=== PATIENT | female | born 1930 | race Caucasian/White ===

== ENCOUNTER 2016-12-16 12:41 | Inpatient (IN) | payer OTHER, MEDICARE ==
[~2016-12-16] VITALS: Ht 157.5 cm; Wt 62.1 kg
[~2016-12-16 12:41] MED LIST: AZITHROMYCIN500 MG PO; BENADRYL 50 MG50 MG PO; BENTYL 10 MG CA10 MG PO; BIOTIN5 M1 PO; CALCIUM 600 +1 EA12 PO; CHEMO IV; CYANOCOBAL1000 MCG/2 IM; DILAUDID2 M1 PO; ENABLEX PO; ENSURE LIQUID237 ML PO; FLAXSEED OIL1000 MG PO; FOLIC ACID0.8 M2 PO; GLUCOSAMINE & C1 CAP PO; GLUCOSAMINE1000 MG PO; K-DUR 20MEQ TA20 MEQ PO; KLOR-CON20 MEQ PO; LASIX40 MG PO; LASIX80 M1 PO; LASIX80 MG PO; LIDODERM1 EACH TOP; LOPRESSOR50 M1 PO; MAGNESIUM OXID400 M1 PO; MULTIPLE VITAM1 EAC2 PO; MYRBETRIQ25 M1 PO; NIACIN500 MG PO; PLAVIX 75MG TAB75 MG PO; POTASSIUM CHLO20 ME4 PO; PREDNISONE 20MG20 MG PO; PREDNISONE10 MG PO; PREDNISONE50 M1 PO; PRIMROSE OILE500 MG PO; SPIRIVA 18 MCG18 MCG INH; SYNTHROID0.125 MG PO; TRAMADOL HCL50 M1 PO; VITAMIN C500 M3 PO; VITAMIN C500 M8 PO; VITAMIN D35000 IU PO; VITAMIN E1000 IU PO; XARELTO15 MG PO; ZOFRAN ODT4 M1 SL
--- NOTE | 2016-12-16 12:46 | ED DYSPNEA/ASTHMA COMPLAINT ---
History of Present Illness General Chief Complaint: Dyspnea (COPD, CHF, Other) Stated Complaint: BIBA SOB Source: patient, old records, EMS Exam Limitations: no limitations Vital Signs & Intake/Output Vital Signs & Intake/Output Vital Signs Date Time Temp Pulse Resp B/P Pulse O2 O2 Flow FiO2 Ox Delivery Rate 12/16 1347 133 16 111/73 12/16 1346 133 111/73 12/16 1307 100 Nasal 2.0L Cannula 12/16 1246 98.3 144 16 101/69 98 Room Air Allergies Coded Allergies: Penicillins (RASH 12/16/16) acetaminophen (BURNING FEELING IN STOMACH 12/16/16) garlic (NAUSEA 12/16/16) latex (SORES 12/16/16) mold (UNKNOWN 12/16/16) onion (NAUSEA 12/16/16) Sulfa (Sulfonamide Antibiotics) (GI 12/16/16) aspirin (MILD GI 12/16/16) diazepam (GI 12/16/16) oxycodone (GI, MIGRAINE 12/16/16) propoxyphene (GI 12/16/16) Uncoded Allergies: COLOGNE (PER PT UPSETS HER WITH THE SMELL 10/17/16) HAIR SPRAY (PER PT UPSETS HER WITH THE SMELL 10/17/16) SMOKE (PER PT CANT STAND SMELLS IT UPSETS HER 10/17/16) Reconcile Medications Ascorbic Acid (Vitamin C) 500 MG TABLET 1 TAB PO TID SUPPLEMENT (Reported) Biotin 5 MG CAPSULE 1 TAB PO DAILY SUPPLEMENT (Reported) Calcium Carbonate/Vitamin D3 (Calcium 600 + Vit D Tablet) 1 EACH TABLET 1 TAB PO DAILY SUPPLEMENT (Reported) Calcium Citrate/Vitamin D3 (Citracal + D Maximum Caplet) 315 MG-250 UNIT TABLET 1 TAB PO BID SUPPLEMENT (Reported) NOT GIVEN AT HOSPITAL Cholecalciferol (Vitamin D3) (Vitamin D3) 5,000 UNIT TABLET 1 TAB PO DAILY SUPPLEMENT (Reported) Cyanocobalamin (Vitamin B-12) (Cyanocobalamin Injection) 1,000 MCG/1 ML VIAL 1 ML IM Q30D SUPPLEMENT (Reported) Estradiol (Climara) 0.0375 MG/24 HOUR PATCH.TDWK 1 PATCH TOP ESTROGEN ( Reported) Flaxseed Oil (Flax Oil) 1,000 MG CAPSULE 1 CAP PO DAILY SUPPLEMENT (Reported) Folic Acid 0.8 MG TABLET 1 TAB PO BID SUPPLEMENT (Reported) Furosemide (Lasix) 80 MG TABLET 1 TAB PO DAILY WATER PILL (Reported) Glucosam Sul Na/Chondr Shepard A Na (Glucosamine-Chondroitin Tablet) 750 MG-600 MG TABLET 1 TAB PO BID SUPPLEMENT (Reported) Lactose-Reduced Food (Ensure Liquid) 237 ML LIQUID 237 ML PO TID PRN NUTRITIONAL SUPPLEMENT (Reported) Levothyroxine Sodium (Synthroid) 0.125 MG TAB 1 TAB PO DAILY AC THYROID ( Reported) Lidocaine 5 % ADH..PATCH 1 PAT TOP DAILY PRN PAIN (Reported) Magnesium Oxide 400 MG TABLET 1 TAB PO DAILY SUPPLEMENT (Reported) Metoprolol Tartrate (Lopressor) 25 MG TABLET 2 TAB PO BID BLOOD PRESSURE ( Reported) Reason to Stop at ADM: gi bleed and possibility of hypotension Mirabegron (Myrbetriq) 25 MG TAB.ER.24H 1 TAB PO DAILY BLADDER (Reported) Multivitamin (Multiple Vitamins) 1 EACH TABLET 1 TAB PO DAILY SUPPLEMENT ( Reported) Niacinamide (Niacin) 500 MG TABLET 1 TAB PO DAILY SUPPLEMENT (Reported) Pantoprazole Sodium 40 MG TABLET.DR 1 TAB PO DAILY GI (Reported) Pantoprazole Sodium (Protonix) 40 MG TABLET.DR 1 TAB PO BID GI (Reported) Potassium Chloride 20 MEQ TABLET.ER 1 TAB PO QAM SUPPLEMENT (Reported) [PRIMROSE OIL] 1,000 MG PO DAILY SUPPLEMENT (Reported) Rivaroxaban (Xarelto) 15 MG TABLET 1 TAB PO 1700 BLOOD THINNER (Reported) Tiotropium [place] (Spiriva) 18 MCG CAP.W.DEV 1 CAP INH DAILY BREATHING PROBLEMS (Reported) Tramadol HCl 50 MG TABLET 1 TAB PO BIDP PRN PAIN (Reported) Vitamin E Mixed (Vitamin E) 1,000 UNIT CAPSULE 1 CAP PO DAILY SUPPLEMENT ( Reported) Triage Nurses Notes Reviewed? yes Onset: Morning Duration: hour(s): (several) Timing: single episode today Severity: mild Activities at Onset: TRYING TO GET UP HPI: 86 year old female BIBA from assisted living for complaint of fall this am at 7 am. She hit a glass table with her cheek as she was trying to put pressure against it to stand up. No head trauma or head injury. [place] lightheaded prior to the fall. No chest pain or palpitations prior to the fall. Now complains of chest pain and thinks she might have hit her chest on the table. Past History Medical History Any Pertinent Medical History? 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 History of MRSA: No History of VRE: No History of CDIFF: No Pneumonia Vaccine: 11/02/08 Influenza Vaccine: 08/18/16 Surgical History Surgical History: cholecystectomy, hysterectomy (benign), bladder surgery Psychosocial History Who do you live with Patient/Self Services at Home Home Health Aide, Nursing What is your primary language Moldovan Family History Family History, If Any: MOTHER (hypertension, coronary artery disease and stroke). Relation not specified for: FH: coronary artery disease FH: hypertension FH: stroke Hx Contributory? No Review of Systems Review of Systems Constitutional: Denies: chills, fever. EENTM: Reports: no symptoms. Respiratory: Reports: short of breath. Denies: cough, sputum production. Cardiovascular: Denies: chest pain, palpitations. GI: Reports: nausea. Genitourinary: Denies: discharge, dysuria. Musculoskeletal: Reports: no symptoms. Skin: Reports: no symptoms. Neurological/Psychological: Reports: no symptoms. Hematologic/Endocrine: Denies: bruising, bleeding, polyuria, polydipsia. Immunologic/Allergic: Reports: no symptoms. All Other Systems: Reviewed and Negative Physical Exam Physical Exam General Appearance: alert, awake, mild distress, thin Head: atraumatic, normal appearance Eyes: Bilateral: normal appearance, PERRL, pale conjunctivae. Ears, Nose, Throat: normal pharynx, normal ENT inspection, hearing grossly normal Neck: normal inspection, supple, full range of motion Respiratory: normal breath sounds, chest non-tender, no respiratory distress Cardiovascular: tachycardia, irregularly irregular Peripheral Pulses: 2+ radial (R), 2+ radial (L) Gastrointestinal: soft, non-tender Neurologic/Psych: no motor/sensory deficits, awake, alert, oriented x 3 Skin: intact, normal color, warm/dry Core Measures ACS in differential dx? No Severe Sepsis Present: No Septic Shock Present: No Progress Differential Diagnosis: RAPID AFIB, FACIAL CONTUSION, Plan of Care: Orders Procedure Date/time Status Heart Healthy Diet 12/16 D Active LACTIC ACID 12/16 1652 Active LOWER RESPIRATORY CULTURE 12/16 1449 Active Code Status 12/16 1447 Active Patient Data 12/16 1423 Active Admit to inpatient 12/16 1414 Active Vital Signs 12/16 1414 Active LACTIC ACID 12/16 1352 Active MISTAKE 12/16 1327 Active Telemetry/Cancellation Clerk 12/16 1255 Active TROPONIN LEVEL 12/16 1249 Complete PARTIAL THROMBOPLASTIN TIME 12/16 1249 Active PROTHROMBIN TIME 12/16 1249 Active D-DIMER 12/16 1249 Active COMPREHENSIVE METABOLIC PANEL 12/16 1249 Complete CBC WITHOUT DIFFERENTIAL 12/16 1249 Complete B-TYPE NATRIURETIC PEP (BNP) 12/16 1249 Complete EKG 12/16 1242 Active Current Medications Sig/Timi Start time Last Medication Dose Stop Time Status Admin Azithromycin 500 MG ONCE ONE 12/16 1415 AC (Zithromax) 12/16 1514 Dextrose/Water 250 ML (D5W) Vancomycin HCl 1,000 MG ONCE ONE 12/16 1400 AC Dextrose/Water 250 ML 12/16 1459 (D5W) Laboratory Tests 12/16/16 1435: Lactic Acid Pending, PT Pending, INR Pending, APTT Pending, D-Dimer Pending 12/16/16 1300: Anion Gap 6, Estimated GFR 59 L, BUN/Creatinine Ratio 16.7, Glucose 125 H, Calcium 8.7, Total Bilirubin 1.3, AST 28, ALT 36, Alkaline Phosphatase 71, Troponin I 0.02, Bdv-P-Olfvmjcjyjr Pept 61548 H, Total Protein 6.1 L, Albumin 3.2 L, Globulin 2.9, Albumin/Globulin Ratio 1.1, CBC w Diff MAN DIFF ORDERED, RBC 3.47 L, MCV 87.0, MCH 29.4, RDW 14.3, MPV 9.4, Gran % 8.1 L, Lymphocytes % 32.4, Monocytes % 35.6 H, Eosinophils % 22.9 H, Basophils % 1.0, Absolute Granulocytes 0.1 L, Absolute Lymphocytes 0.2 L, Absolute Monocytes 0.2, Absolute Eosinophils 0.2, Absolute Basophils 0, Platelet Estimate VERIFIED BY SMEAR, Polychromasia 1+, PUBS [facility] 33.8 Microbiology 12/16 1449 LOWER RESP: Respiratory Culture - ORD 12/16 144 LOWER RESP: Gram Stain - ORD 12/16/2016 2:49:03 PM Patient admitted to the medical service on telemetry for neutropenia, pneumonia and rapid A. fib. Oncology paged. 2:57 PM D/W doctor bone worker for [facility]. Will have [facility] consult in house. (SINGH MAYBERRY,[place]) Diagnostic Imaging: Viewed by Me: Radiology Read. Discussed w/RAD: Radiology Read. Initial ED EKG: AFIB (RAPID) Rhythm Strip: RAPID AFIB Comments: PATIENT: ESME CARIAS PRESENT AGE: 86 PATIENT ACCOUNT NO: [id number] : [birth year] LOCATION: [facility] [place] ORDERING PHYSICIAN: LORE WINTERS MD SERVICE DATE: 12/16/16-125 EXAM TYPE: RAD - XRY-PORTABLE CHEST XRAY EXAMINATION: XR PORTABLE CHEST CLINICAL INFORMATION: 86-year-old woman with dyspnea. COMPARISON: 10/17/2016 chest radiograph TECHNIQUE: Portable AP view of the chest was obtained. FINDINGS: There is new patchy opacity at the left lung base that could reflect atelectasis or consolidation. Moderate cardiomegaly is approximately stable. There are no large pleural effusions. A right-sided chest port is seen in stable position. IMPRESSION: New patchy airspace opacity at the left lung base is nonspecific and could reflect atelectasis or consolidation. DICTATED BY: HOLLEY CALIXTO MD DATE/TIME DICTATED:12/16/161342 FINE PATCHER:BALDEMAR DATE/TIME TRANSCRIBED:12/16/161342 CONFIDENTIAL, DO NOT COPY WITHOUT APPROPRIATE AUTHORIZATION. <Electronically signed in Other Vendor System> SIGNED BY: HOLLEY CALIXTO MD 12/16/16 1348 Departure Departure Time of Disposition: 144 Disposition: STILL A PATIENT Condition: Stable Clinical Impression Primary Impression: Rapid atrial fibrillation Secondary Impressions: Pneumonia Referrals: CHARITY THOMAS MD (PCP/Family) Departure Forms: Customer Survey General Discharge Information Admission Note Spoke With: KERRIE JORDAN MD Documentation of Exam: Documentation of any treatments & extenuating circumstances including Concerns Regarding Discharge (functional status, medication knowledge or non-compliance, living conditions, etc.) that warrant an admission rather than observation: [IV beta blockers, IV antibiotics, isolation precautions, oncology evaluation, monitor intake and output, follow-up blood and sputum cultures] Critical Care Note Critical Care Note Critical Care Time: 30-74 min
--- NOTE | 2016-12-16 13:00 | NUR ---
BIBA FROM HOME FOR SOB X4 DAYS OR LONGER. PT FELL INTO NIGHTSTAND, HIT RIGHT SIDE OF FACE -LOC. HX AFIB, 130'S-140'S ON MONITOR. A+OX4.
[2016-12-16 13:18] LABS: ABSOLUTE BASOPHIL COUNT 0 /CUMM (0.0-0.2); ABSOLUTE EOSINOPHIL COUNT 0.2 /CUMM (0.0-0.7); ABSOLUTE GRANULOCYTE CT 0.1 /CUMM (1.4-6.5); ABSOLUTE LYMPH COUNT 0.2 /CUMM (1.2-3.4); ABSOLUTE MONOCYTE COUNT 0.2 /CUMM (0.10-0.60); EOSINOPHIL % 22.9 % (0-5); HEMATOCRIT 30.2 % (37-47); MEAN CORPUSCULAR HGB 29.4 PG (27.0-31.0); MEAN CORPUSCULAR HGB CONC 33.8 G/DL (33.0-37.0); MEAN PLATELET VOLUME 9.4 FL (7.4-10.4); PLATELET COUNT 152 /CUMM (130-400); RBC DISTRIBUTION WIDTH 14.3 % (11.5-14.5); RED BLOOD CELL CT 3.47 /CUMM (4.20-5.40)
[2016-12-16 13:19] LABS: GRANULOCYTE % 8.1 % (42.2-75.2)
--- NOTE | 2016-12-16 13:31 | NUR ---
CRITICAL TEST RESULTS [id number] ESME CARIAS 86 F TESTS AND RESULTS: WBC 0.7 Results received and read back by: VINNIE BARKER Results received date and time: 12/16/16 1332 The following provider was notified of the results, and read the results back: DR. WINTERS Notified date and time: 12/16/16 at 1334
[2016-12-16 13:32] LABS: WHITE BLOOD CELL COUNT 0.7 /CUMM (4.8-10.8)
--- NOTE | 2016-12-16 13:48 | NUR ---
5MG IV LOPRESSOR ADMINISTERED FOR HR 130'S-140'S. BP 111/73. PT SPEAKING IN FULL SENTENCES WITH NO DIFFICULTY. VERY CONVERSIVE.
--- NOTE | 2016-12-16 13:48 | RADIOLOGY REPORT ---
EXAMINATION: XR PORTABLE CHEST CLINICAL INFORMATION: 86-year-old woman with dyspnea. COMPARISON: 10/17/2016 chest radiograph TECHNIQUE: Portable AP view of the chest was obtained. FINDINGS: There is new patchy opacity at the left lung base that could reflect atelectasis or consolidation. Moderate cardiomegaly is approximately stable. There are no large pleural effusions. A right-sided chest port is seen in stable position. IMPRESSION: New patchy airspace opacity at the left lung base is nonspecific and could reflect atelectasis or consolidation.
--- NOTE | 2016-12-16 14:41 | History & Physical ---
ERIN OMALLEY MD 12/16/16 1440: General Information and HPI Source of Information: patient, old records Exam Limitations: no limitations History of Present Illness: Patient is an 86-year-old female with past medical history of syncope, submandibular masses, atrial fibrillation, CHF, COPD, GERD, diverticulosis, nephrolithiasis, osteoarthritis,hypothyroidism, pernicious anemia, Vit B12 deficiency, non-Hodgkin's lymphoma (injectable chemotherapy was given on 2015 and 2 weeks ago) presented with chief complaints of fall at 7 a.m. She claims that she had an episode of pneumonia in October.For which she was admitted to [facility] for 5 days and treated for it. After that, she was completely all right. Although she was having intermittent abdominal pain, loose brown, slimy stools. Around 2 or 3 days ago she started having low-grade fever, which was recorded by her home health care nurse, but she was avoiding it. On the day of admission when she was getting out of the bed. She tried it without using the cane. That's why she fell over the glass table and hit her face. She claims that she had a little bit dizziness before that. Denies blacking in front of eyes, chest pain, palpitation, headache, head trauma, weakness in any part of the body, abnormal movement in the part of the body. She also says that she feels chest pain while she takes, deep breathing. She is following Dr. Laws for chemotherapy. Her next chemotherapy will be on 29 of December. Allergies/Medications Allergies: Coded Allergies: Penicillins (RASH 12/16/16) acetaminophen (BURNING FEELING IN STOMACH 12/16/16) garlic (NAUSEA 12/16/16) latex (SORES 12/16/16) mold (UNKNOWN 12/16/16) onion (NAUSEA 12/16/16) Sulfa (Sulfonamide Antibiotics) (GI 12/16/16) aspirin (MILD GI 12/16/16) diazepam (GI 12/16/16) oxycodone (GI, MIGRAINE 12/16/16) propoxyphene (GI 12/16/16) Uncoded Allergies: COLOGNE (PER PT UPSETS HER WITH THE SMELL 10/17/16) HAIR SPRAY (PER PT UPSETS HER WITH THE SMELL 10/17/16) SMOKE (PER PT CANT STAND SMELLS IT UPSETS HER 10/17/16) Home Med list Ascorbic Acid (Vitamin C) 500 MG TABLET 1 TAB PO TID SUPPLEMENT (Reported) Biotin 5 MG CAPSULE 1 TAB PO DAILY SUPPLEMENT (Reported) Calcium Carbonate/Vitamin D3 (Calcium 600 + Vit D Tablet) 1 EACH TABLET 1 TAB PO DAILY SUPPLEMENT (Reported) Calcium Citrate/Vitamin D3 (Citracal + D Maximum Caplet) 315 MG-250 UNIT TABLET 1 TAB PO BID SUPPLEMENT (Reported) Cholecalciferol (Vitamin D3) (Vitamin D3) 5,000 UNIT TABLET 1 TAB PO DAILY SUPPLEMENT (Reported) Cyanocobalamin (Vitamin B-12) (Cyanocobalamin Injection) 1,000 MCG/1 ML VIAL 1 ML IM Q30D SUPPLEMENT (Reported) Estradiol (Climara) 0.0375 MG/24 HOUR PATCH.TDWK 1 PATCH TOP ESTROGEN ( Reported) Flaxseed Oil (Flax Oil) 1,000 MG CAPSULE 1 CAP PO DAILY SUPPLEMENT (Reported) Folic Acid 0.8 MG TABLET 1 TAB PO BID SUPPLEMENT (Reported) Furosemide (Lasix) 80 MG TABLET 1 TAB PO DAILY WATER PILL (Reported) Glucosam Sul Na/Chondr Shepard A Na (Glucosamine-Chondroitin Tablet) 750 MG-600 MG TABLET 1 TAB PO BID SUPPLEMENT (Reported) Lactose-Reduced Food (Ensure Liquid) 237 ML LIQUID 237 ML PO TID PRN NUTRITIONAL SUPPLEMENT (Reported) Levothyroxine Sodium (Synthroid) 0.125 MG TAB 1 TAB PO DAILY AC THYROID ( Reported) Lidocaine 5 % ADH..PATCH 1 PAT TOP DAILY PRN PAIN (Reported) Magnesium Oxide 400 MG TABLET 1 TAB PO DAILY SUPPLEMENT (Reported) Metoprolol Tartrate (Lopressor) 25 MG TABLET 2 TAB PO BID BLOOD PRESSURE ( Reported) Reason to Stop at ADM: gi bleed and possibility of hypotension Mirabegron (Myrbetriq) 25 MG TAB.ER.24H 1 TAB PO DAILY BLADDER (Reported) Multivitamin (Multiple Vitamins) 1 EACH TABLET 1 TAB PO DAILY SUPPLEMENT ( Reported) Niacinamide (Niacin) 500 MG TABLET 1 TAB PO DAILY SUPPLEMENT (Reported) Pantoprazole Sodium (Protonix) 40 MG TABLET.DR 1 TAB PO BID GI (Reported) Pantoprazole Sodium 40 MG TABLET.DR 1 TAB PO DAILY GI (Reported) Potassium Chloride 20 MEQ TABLET.ER 1 TAB PO QAM SUPPLEMENT (Reported) [PRIMROSE OIL] 1,000 MG PO DAILY SUPPLEMENT (Reported) Rivaroxaban (Xarelto) 15 MG TABLET 1 TAB PO 1700 BLOOD THINNER (Reported) Tiotropium [place] (Spiriva) 18 MCG CAP.W.DEV 1 CAP INH DAILY BREATHING PROBLEMS (Reported) Tramadol HCl 50 MG TABLET 1 TAB PO BIDP PRN PAIN (Reported) Vitamin E Mixed (Vitamin E) 1,000 UNIT CAPSULE 1 CAP PO DAILY SUPPLEMENT ( Reported) Compliance With Home Meds: GOOD Past History Travel History Traveled to [place] past 21 day No Medical History Neurological: syncope EENT: submandibular masses Cardiovascular: AFIB, CHF Respiratory: COPD Gastrointestinal: GERD, DIVERTICULOSIS Hepatic: NONE Renal: kidney stones Musculoskeletal: osteoarthritis, sciatica Psychiatric: NONE Endocrine: hypothyroidism Blood Disorders: PERNICIOUS ANEMIA B12 deficiency Cancer(s): non-hodgkin lymphoma, CHEMO INJECTION GIVEN 08/10/16 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 History of MRSA: No History of VRE: No History of CDIFF: No Pneumonia Vaccine: 11/02/08 Influenza Vaccine: 08/18/16 Surgical History Surgical History: cholecystectomy, hysterectomy (benign), bladder surgery Past Family/Social History Family History Relations & Conditions if any MOTHER (hypertension, coronary artery disease and stroke). Relation not specified for: FH: coronary artery disease FH: hypertension FH: stroke Psychosocial History Who Do You Live With? self Services at Home: Home Health Aide, Nursing Primary Language: Kenyan ETOH Use: denies use Illicit Drug Use: denies illicit drug use Living Will? no Power of Ticket Marker/HCP? yes Name of POA/HCP: Pt's son, Juliocesar Saldana. Functional Ability ADLs Independent: dressing, eating, toileting, bathing. Ambulation: independent IADLs Independent: shopping, housework, finances, food prep, telephone, transportation , medication admin. Review of Systems Review of Systems Constitutional: Reports: fever, malaise, weakness. Denies: chills, diaphoresis. EENTM: Denies: no symptoms. Cardiovascular: Reports: chest pain, palpitations. Denies: edema, orthopena, peripheral edema. Respiratory: Reports: cough, short of breath. Denies: hemoptysis, orthopnea, sputum production, stridor, wheezing. GI: Reports: abdominal pain, diarrhea, nausea, changes in stool. Denies: bloating, constipation, distention, bowel incontinence, melena, bloody stool, vomiting. Genitourinary: Denies: discharge, dysuria, frequency, hematuria, hesitation, nocturia. Musculoskeletal: Denies: back pain, gout, joint pain, joint swelling, muscle pain, muscle stiffness. Skin: Denies: no symptoms. Neurological/Psychological: Reports: anxiety. Hematologic/Endocrine: Denies: bruising, bleeding, polyuria, polydipsia. Exam & Diagnostic Data Last 24 Hrs of Vital Signs/I&O Vital Signs Date Time Temp Pulse Resp B/P Pulse O2 O2 Flow FiO2 Ox Delivery Rate 12/16 1926 97.6 106 24 116/62 96 Nasal 2.0L Cannula 12/16 1858 100 18 117/59 99 Nasal 2.0L Cannula 12/16 1727 98.2 112 16 118/72 100 Room Air 12/16 1444 115 16 118/71 99 Nasal 2.0L Cannula 12/16 1347 133 16 111/73 12/16 1346 133 111/73 /04 1307 100 Nasal 2.0L Cannula 12/16 1246 98.3 144 16 101/69 98 Room Air Intake & Output 12/16 1600 12/16 0800 12/16 0000 Intake Total Output Total Balance Patient 61.689 kg Weight Physical Exam General Appearance Alert, Oriented X3, Cooperative, No Acute Distress Skin No Rashes, No Breakdown HEENT Atraumatic, PERRLA, EOMI Neck Supple, No JVD Cardiovascular Normal S1, Normal S2, irregular Lungs Clear to Auscultation, decrease in air entry, occasional. decrease air entry, occasional crackles Abdomen Soft, mild tender in the left upper middle and lower quadrant Neurological Normal Speech Extremities No Clubbing, No Cyanosis, No Edema, Normal Pulses Assessment/Plan Assessment: Patient is an 86-year-old female with past medical history of syncope, submandibular masses, atrial fibrillation, CHF, COPD, GERD, diverticulosis, nephrolithiasis, osteoarthritis,hypothyroidism, pernicious anemia, Vit B12 deficiency, non-Hodgkin's lymphoma (injectable chemotherapy was given on 2015 and 2 weeks ago) presented with chief complaints of fall at 7 a.m. Vital signs at the time of admission -pulse 133, respiratory rate 16, blood pressure 111/73, SPO2-100% with 2 liters of nasal cannula Pertinent labs- WBC 0.7, hemoglobin 10.2, NA -135 Chest x-ray (12/16/2016) Continue PT opacity at the left lung base that the slides atelectasis/ consolidation, moderate cardiomegaly, right-sided chest port in stable position Problem list - syncope, submandibular masses, atrial fibrillation, CHF, COPD, GERD, diverticulosis, nephrolithiasis, osteoarthritis, hypothyroidism, pernicious anemia, Vit B12 deficiency, non-Hodgkin's lymphoma (inj chemotherapy was given on 08/10/2016 and 2 weeks ago) Plan - * We will place cardiology consult and follow the recommendation for CHF and atrial fibrillation * We will place infectious disease consult and follow their recommendation, forNeutropenia with fever * We will place pulmonology consult and follow their recommendation. * We will follow chest CT/ABD and pelvis w and w/o contrast, s.amylase and lipase. * We will continue Xeralto * We will give IV Lasix * Strict intake output charting * Daily weight * Keep head end of the bed elevated * We'll start patient on broad-spectrum antibiotic including IV ceftazidime and, IV vancomycin * we will send CBC, BEP, blood culture, UA, urine culture and sputum culture * Diet - High protein diet * DVT prophylaxis - ALPS/ Xeralto * Code Status - DNR/DNI As Ranked By This Provider Problem List: 1. Rapid atrial fibrillation 2. Leukopenia due to antineoplastic chemotherapy 3. Non Hodgkin's lymphoma Core Measures/Miscellaneous Acute Coronary Syndrome ACS Diagnosis: No Cerebrovascular Accident CVA/TIA Diagnosis: No Congestive Heart Failure CHF Diagnosis: No Venous Thromboembolism VTE Risk Factors: Age > 40 VTE Prophylaxis Ordered Inpt: Mechanical (ALPS/TEDS) No Mech VTE prophylaxis d/t: No contraindications No VTE Pharm Prophylaxis d/t: No contraindications VTE Diagnosis: No VTE Type: NONE VTE Confirmed by (Test): NONE Severe Sepsis Severe Sepsis Present: No Septic Shock Septic Shock Present: No Miscellaneous Documentation Attending Case Discussed With: KERRIE JORDAN MD Primary Care Physician: NEHA THOMAS MDLMA 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 Level of Patient Care: Telemetry KERRIE JORDAN MD 12/16/162027: Attending MD Review Statement Attending Statement Attending MD Statement: examined this patient, discuss w/resident/PA/RN TELEMETRY, agreed w/resident/PA/RN TELEMETRY, reviewed EMR data (avail), discussed with nursing, discussed with case mgmt, reviewed images, amended to note Attending Assessment/Plan: 86 y/o F with pmh sig for atrial fibrillation, CHF, COPD, GERD, diverticulosis, nephrolithiasis, osteoarthritis, GERD, hypothyroidism,, pernicious anemia, B12 deficiency, non-Hodgkin's lymphoma s/p radiation and now undergoing Chemo (Dr. Stevenson is her Oncologist) who presented with multitude of complaints. She has kitty feeling very tired, fell this am and she has a cough with sob. She also had some chest pain [place] upon chest palpation at sternum. She is also c/o diarrhea and some pain in llq. In ER, she was neutropenic, and there was a question on pneumonia. Vital Signs Date Time Temp Pulse Resp B/P Pulse O2 O2 Flow FiO2 Ox Delivery Rate 12/16 1926 97.6 106 24 116/62 96 Nasal 2.0L Cannula 12/16 1858 100 18 117/59 99 Nasal 2.0L Cannula 12/16 1727 98.2 112 16 118/72 100 Room Air 12/16 1444 115 16 118/71 99 Nasal 2.0L Cannula 12/16 1347 133 16 111/73 04 1346 133 111/73 /04 1307 100 Nasal 2.0L Cannula 12/16 1246 98.3 144 16 101/69 98 Room Air On exam; aox3 nad. cv; s1,s2, irregular, + systolic murmur. resp; + b/l basal crackles. abd; soft, tender in llq, bs+ ext; 1+ edema. Laboratory Tests 12/16 12/16 12/16 1652 1435 1300 Chemistry Sodium (137 - 145 mmol/L) 135 L Potassium (3.5 - 5.1 mmol/L) 3.7 Chloride (98 - 107 mmol/L) 96 L Carbon Dioxide (22 - 30 mmol/L) 33 H Anion Gap (5 - 16) 6 BUN (7 - 17 mg/dL) 15 Creatinine (0.5 - 1.0 mg/dL) 0.9 Estimated GFR (>60 ml/min) 59 L BUN/Creatinine Ratio (7 - 25 %) 16.7 Glucose (65 - 99 mg/dL) 125 H Lactic Acid (0.7 - 2.1 mmol/L) Cancelled 1.2 Calcium (8.4 - 10.2 mg/dL) 8.7 Total Bilirubin (0.2 - 1.3 mg/dL) 1.3 AST (14 - 36 U/L) 28 ALT (9 - 52 U/L) 36 Alkaline Phosphatase (<127 U/L) 71 Troponin I (< 0.11 ng/ml) 0.02 Lkg-V-[id number] Pept (<125 pg/mL) 01375 H Total Protein (6.3 - 8.2 g/dL) 6.1 L Albumin (3.5 - 5.0 g/dL) 3.2 L Globulin (1.9 - 4.2 gm/dL) 2.9 Albumin/Globulin Ratio (1.1 - 2.2 %) 1.1 Amylase (30 - 110 U/L) < 30 L Lipase (23 - 300 U/L) 42 Coagulation PT (9.4 - 12.5 SEC) 12.1 INR (0.90 - 1.19) 1.15 APTT (25 - 37 SEC) 26 D-Dimer (70 - 232 ng/ml) 610 H Hematology CBC w Diff MAN DIFF ORDERED WBC (4.8 - 10.8 /CUMM) 0.7 *L RBC (4.20 - 5.40 /CUMM) 3.47 L Hgb (12.0 - 16.0 G/DL) 10.2 L Hct (37 - 47 %) 30.2 L MCV (81.0 - 99.0 FL) 87.0 MCH (27.0 - 31.0 PG) 29.4 RDW (11.5 - 14.5 %) 14.3 Plt Count (130 - 400 /CUMM) 152 MPV (7.4 - 10.4 FL) 9.4 Gran % (42.2 - 75.2 %) 8.1 L Lymphocytes % (20.5 - 51.1 %) 32.4 Monocytes % (1.7 - 9.3 %) 35.6 H Eosinophils % (0 - 5 %) 22.9 H Basophils % (0.0 - 2.0 %) 1.0 Absolute Granulocytes (1.4 - 6.5 /CUMM) 0.1 L Absolute Lymphocytes (1.2 - 3.4 /CUMM) 0.2 L Absolute Monocytes (0.10 - 0.60 /CUMM) 0.2 Absolute Eosinophils (0.0 - 0.7 /CUMM) 0.2 Absolute Basophils (0.0 - 0.2 /CUMM) 0 Platelet Estimate (ADEQUATE) VERIFIED BY SMEAR Polychromasia 1+ PUBS MCHC (33.0 - 37.0 G/DL) 33.8 EKg>>. Afib. with rvr. All imaging reviewed. A/P; 86 y/o F with pmh sig for atrial fibrillation, CHF, COPD, GERD, diverticulosis, nephrolithiasis, osteoarthritis, GERD, hypothyroidism,, pernicious anemia, B12 deficiency, non-Hodgkin's lymphoma s/p radiation and now undergoing Chemo now admitted with anthony, initially with possiblity of pneumonia but CT chest is consistent with CHF/ pleural effusions. There is also ? of possiblility of pyelonephritis vs lymphoma lesions on kidneys, possibilty of infectious vs lymphoma lesions on spleen. Pt was in rapid afib. Pt admitted to tele. Appreciate pulm input. Needs Diuresis with IV lasix. Please check strict Is/Os. Daily weights. Monitor cr. Please check UA/ Urine cx. Pt received broiad spectrum abx in ER. Will consult ID. Please continue the patient on cardiac meds and consult cardiology in am . Lactate wnl. F/u on all the cx. DVT Px; Pt on Xarelto. DNR/I. ALBINA MAYBERRY,[facility] 12/16/16 2655: Resident Review Statement Resident Statement: examined this patient, discussed with fashion buying internship, agreed with fashion buying internship, reviewed EMR data (avail) Other Findings: Ms Saldana is an 86-year-old woman with a past medical history of submandibular masses, atrial fibrillation, CHF, COPD, GERD, diverticulosis, nephrolithiasis, osteoarthritis,hypothyroidism, pernicious anemia, Vit B12 deficiency, and non- Hodgkin's lymphoma (injectable chemotherapy was given on 08/10/2016 and 2 weeks prior to presentation). She presented today with an episode of lightheadedness and a fall this morning. She sustained trauma to her face and chest during the fall. She had been having faigue and feeling tiredfor the past 1 month. She also having intermittent abdominal pain in her LLQ for the past 1 week and diarrhea and 3 days history of cough and low grade fever. Vital signs at the time of admission -pulse 133, respiratory rate 16, blood pressure 111/73, SPO2-100% with 2 liters of nasal cannula. Physical Exam General Appearance Alert, Oriented X3, Cooperative, No Acute Distress Skin No Rashes, No Breakdown HEENT Atraumatic, PERRLA, EOMI Neck Supple, No JVD Cardiovascular Normal S1, Normal S2, irregular Lungs Clear to Auscultation, decrease in air entry, occasional. decrease air entry, occasional crackles Abdomen Soft, mild tender in the left upper middle and lower quadrant Neurological Normal Speech Extremities No Clubbing, No Cyanosis, No Edema, Normal Pulses Pertinent labs- WBC 0.7, hemoglobin 10.2, NA -135 Chest x-ray (12/16/2016) Continue PT opacity at the left lung base that the slides atelectasis/ consolidation, moderate cardiomegaly, right-sided chest port in stable position Problem list 1. Syncopal episode 2. CHF 3. Healthcare associated pneumonia 4. Atrial fibrillation with RVR 5. COPD, 6. GERD, 7. Diverticulosis with concerns for colitis 8. osteoarthritis, 9. Hypothyroidism, 10. Pernicious anemia, 11. Vit B12 deficiency, 12. Non-Hodgkin's lymphoma on chemotherapy Plan Admit to telemetry Serial EKG and troponin X 3 Will hold on doing Echocardiogram as patient had one in October 2016 with 65% EF IV lasix 40 mg daily PO metoprolol 50 mg BID Continue Xarelto 15 mg daily for a fib Cardiology consult for CHF and atrial fibrillation Gomez culture- Urine, Blood culture X2, Sputum culture and stool culture and stool c-diff toxin Continue IV ceftazidime and IV vancomycin Infectious disease consult for antibiotic guidance considering neutropenia with fever in AM Hematology consult in AM with Dr. Stevenson for neutropenia and lymphoma on active therapy Pulmonology consult appreciated Chest CT/ABD and pelvis w and w/o contrast, s.amylase and lipase. Strict intake output charting Daily weight Keep head end of the bed elevated Monitor CBC, BEP Diet - CHF diet DVT prophylaxis - Xaralto Code Status - DNR/DNI
[2016-12-16 14:52] LABS: PT 12.1 SEC (9.4-12.5); PTT 26 SEC (25-37)
--- NOTE | 2016-12-16 15:09 | NUR ---
ABX INFUSING. PT ASSISTED WITH MULTIPLE PHONE CALLS
[2016-12-16] MEDS ORDERED: CITRACAL + D M1 EACH PO (15:17)
[2016-12-16] MEDS ORDERED: GLUCOSAMINE-CH1 EAC9 PO (15:18)
[2016-12-16] MEDS ORDERED: BIOTIN5 M1 PO (15:19)
[2016-12-16] MEDS ORDERED: LIDOCAINE1 EACH TOP (15:20)
[2016-12-16] MEDS ORDERED: PRIMROSE OIL PO (15:22)
[2016-12-16] MEDS ORDERED: FLAX OIL1000 M1 PO (15:22)
[2016-12-16] MEDS ORDERED: VITAMIN D35000 UNI1 PO (15:23)
[2016-12-16] MEDS ORDERED: VITAMIN E1000 UNI1 PO (15:23)
[2016-12-16] MEDS ORDERED: XARELTO15 M2 PO (15:24)
[2016-12-16] MEDS ORDERED: NIACIN500 M6 PO (15:24)
[2016-12-16] MEDS ORDERED: PANTOPRAZOLE SO40 M1 PO (15:25)
[2016-12-16] MEDS ORDERED: TRAMADOL HCL50 M1 PO (15:27)
[2016-12-16] MEDS ORDERED: SPIRIVA18 MCG INH (15:27)
[2016-12-16] MEDS ORDERED: CLIMARA1 EAC5 TOP (15:27)
--- NOTE | 2016-12-16 15:42 | Cons- Pulmonary ---
General Information and HPI Consulting Request Date of Consult: 12/16/16 Requested By: ER History of Present Illness: 86 year old female BIBA from assisted living for complaint of fall this am at 7 am. She hit a glass table with her cheek, no head trauma. [place] lightheaded prior to the fall. No chest pain or palpitations prior to the fall. Now complains of chest pain and thinks she might have hit her chest on the table. Noted to have left lower lobe infiltrate. As she is severely neutropenic upon this time consult was asked. No cough no wheezing. Patient does have profound fatigue. She did get chemotherapy 2 weeks ago. She is also complaining of abdominal pain in the left side which has been going on for 4 days. She is unable to eat anything. No nausea vomiting. She has had non-Hodgkin's lymphoma in the submandibular area for which she is on active chemotherapy. Last chemotherapy was 2 weeks ago. She was hemodynamically stable change being admitted to the hospital. She does not have any fever or chills since admission. She was slightly hypoxemic. Review of symptoms Nausea, inability to eat dysphagia at times aspiration as well. Otherwise unremarkable Allergies/Medications Allergies: Coded Allergies: Penicillins (RASH 12/16/16) acetaminophen (BURNING FEELING IN STOMACH 12/16/16) garlic (NAUSEA 12/16/16) latex (SORES 12/16/16) mold (UNKNOWN 12/16/16) onion (NAUSEA 12/16/16) Sulfa (Sulfonamide Antibiotics) (GI 12/16/16) aspirin (MILD GI 12/16/16) diazepam (GI 12/16/16) oxycodone (GI, MIGRAINE 12/16/16) propoxyphene (GI 12/16/16) Uncoded Allergies: COLOGNE (PER PT UPSETS HER WITH THE SMELL 10/17/16) HAIR SPRAY (PER PT UPSETS HER WITH THE SMELL 10/17/16) SMOKE (PER PT CANT STAND SMELLS IT UPSETS HER 10/17/16) Home Med List: Ascorbic Acid (Vitamin C) 500 MG TABLET 1 TAB PO TID SUPPLEMENT (Reported) Biotin 5 MG CAPSULE 1 TAB PO DAILY SUPPLEMENT (Reported) Calcium Carbonate/Vitamin D3 (Calcium 600 + Vit D Tablet) 1 EACH TABLET 1 TAB PO DAILY SUPPLEMENT (Reported) Calcium Citrate/Vitamin D3 (Citracal + D Maximum Caplet) 315 MG-250 UNIT TABLET 1 TAB PO BID SUPPLEMENT (Reported) Cholecalciferol (Vitamin D3) (Vitamin D3) 5,000 UNIT TABLET 1 TAB PO DAILY SUPPLEMENT (Reported) Cyanocobalamin (Vitamin B-12) (Cyanocobalamin Injection) 1,000 MCG/1 ML VIAL 1 ML IM Q30D SUPPLEMENT (Reported) Estradiol (Climara) 0.0375 MG/24 HOUR PATCH.TDWK 1 PATCH TOP ESTROGEN ( Reported) Flaxseed Oil (Flax Oil) 1,000 MG CAPSULE 1 CAP PO DAILY SUPPLEMENT (Reported) Folic Acid 0.8 MG TABLET 1 TAB PO BID SUPPLEMENT (Reported) Furosemide (Lasix) 80 MG TABLET 1 TAB PO DAILY WATER PILL (Reported) Glucosam Sul Na/Chondr Shepard A Na (Glucosamine-Chondroitin Tablet) 750 MG-600 MG TABLET 1 TAB PO BID SUPPLEMENT (Reported) Lactose-Reduced Food (Ensure Liquid) 237 ML LIQUID 237 ML PO TID PRN NUTRITIONAL SUPPLEMENT (Reported) Levothyroxine Sodium (Synthroid) 0.125 MG TAB 1 TAB PO DAILY AC THYROID ( Reported) Lidocaine 5 % ADH..PATCH 1 PAT TOP DAILY PRN PAIN (Reported) Magnesium Oxide 400 MG TABLET 1 TAB PO DAILY SUPPLEMENT (Reported) Metoprolol Tartrate (Lopressor) 25 MG TABLET 2 TAB PO BID BLOOD PRESSURE ( Reported) Reason to Stop at ADM: gi bleed and possibility of hypotension Mirabegron (Myrbetriq) 25 MG TAB.ER.24H 1 TAB PO DAILY BLADDER (Reported) Multivitamin (Multiple Vitamins) 1 EACH TABLET 1 TAB PO DAILY SUPPLEMENT ( Reported) Niacinamide (Niacin) 500 MG TABLET 1 TAB PO DAILY SUPPLEMENT (Reported) Pantoprazole Sodium (Protonix) 40 MG TABLET.DR 1 TAB PO BID GI (Reported) Pantoprazole Sodium 40 MG TABLET.DR 1 TAB PO DAILY GI (Reported) Potassium Chloride 20 MEQ TABLET.ER 1 TAB PO QAM SUPPLEMENT (Reported) [PRIMROSE OIL] 1,000 MG PO DAILY SUPPLEMENT (Reported) Rivaroxaban (Xarelto) 15 MG TABLET 1 TAB PO 1700 BLOOD THINNER (Reported) Tiotropium [place] (Spiriva) 18 MCG CAP.W.DEV 1 CAP INH DAILY BREATHING PROBLEMS (Reported) Tramadol HCl 50 MG TABLET 1 TAB PO BIDP PRN PAIN (Reported) Vitamin E Mixed (Vitamin E) 1,000 UNIT CAPSULE 1 CAP PO DAILY SUPPLEMENT ( Reported) Review of Systems Review of Systems Constitutional: Reports: see HPI. Past History Travel History Traveled to [place] past 21 day No Medical History Neurological: syncope EENT: submandibular masses Cardiovascular: AFIB, CHF Respiratory: COPD Gastrointestinal: GERD, DIVERTICULOSIS Hepatic: NONE Renal: kidney stones Musculoskeletal: osteoarthritis, sciatica Psychiatric: NONE Endocrine: hypothyroidism Blood Disorders: PERNICIOUS ANEMIA B12 deficiency Cancer(s): non-hodgkin lymphoma, CHEMO INJECTION GIVEN 08/10/16 CLASSIFICATION ANALYST/Reproductive: HYSTERECTOMY Other Medical Hx: Rheumatic fever, asthma, hypothyroidism, cholecystectomy, hysterectomy, diastolic dysfunction, sleep apnea, coronary artery disease, chronic atrial fibrillation. Surgical History Surgical History: cholecystectomy, hysterectomy (benign), bladder surgery Family History Relations & Conditions If Any: MOTHER (hypertension, coronary artery disease and stroke). Relation not specified for: FH: coronary artery disease FH: hypertension FH: stroke Psychosocial History Who Do You Live With? self Services at Home: Home Health Aide, Nursing Primary Language: Korean ETOH Use: denies use Illicit Drug Use: denies illicit drug use Living Will? no Power of Cotton Weigher Operator/HCP? yes Name of POA/HCP: Pt's son, Juliocesar Saldana. Functional Ability ADLs Independent: dressing, eating, toileting, bathing. Ambulation: independent IADLs Independent: shopping, housework, finances, food prep, telephone, transportation , medication admin. Exam & Diagnostic Data Last 24 Hrs of Vital Signs/I&O Vital Signs Date Time Temp Pulse Resp B/P Pulse O2 O2 Flow FiO2 Ox Delivery Rate 12/16 1347 133 16 111/73 12/16 1346 133 111/73 12/16 1307 100 Nasal 2.0L Cannula 12/16 1246 98.3 144 16 101/69 98 Room Air Intake & Output 12/16 1600 12/16 0800 12/16 0000 Intake Total Output Total Balance Patient 136 lb Weight Last 48 Hrs of Labs/Bill: Laboratory Tests 12/16/16 1435: Lactic Acid 1.2, PT 12.1, INR 1.15, APTT 26, D-Dimer 610 H 12/16/16 1300: Anion Gap 6, Estimated GFR 59 L, BUN/Creatinine Ratio 16.7, Glucose 125 H, Calcium 8.7, Total Bilirubin 1.3, AST 28, ALT 36, Alkaline Phosphatase 71, Troponin I 0.02, Zum-X-Hwrlgczmpsw Pept 22023 H, Total Protein 6.1 L, Albumin 3.2 L, Globulin 2.9, Albumin/Globulin Ratio 1.1, CBC w Diff MAN DIFF ORDERED, RBC 3.47 L, MCV 87.0, MCH 29.4, RDW 14.3, MPV 9.4, Gran % 8.1 L, Lymphocytes % 32.4, Monocytes % 35.6 H, Eosinophils % 22.9 H, Basophils % 1.0, Absolute Granulocytes 0.1 L, Absolute Lymphocytes 0.2 L, Absolute Monocytes 0.2, Absolute Eosinophils 0.2, Absolute Basophils 0, Platelet Estimate VERIFIED BY SMEAR, Polychromasia 1+, PUBS MCHC 33.8 Assessment/Plan Impression/Plan: Physical Exam: General: WD/ WN female in NAD; alert and oriented x 3 Neck: no JVD, no carotid bruit Heart: irregularly irregular with 2/6 systolic murmur . Abdomen soft. Tenderness in the left sub-costal area Lungs: clear bilaterally Extremities: trace edema Significant data BUN/creatinine stable. Sodium 135, bicarbonate 33. LFTs were unremarkable troponin was normal white count 0.7, platelets adequate, hemoglobin 10.2 This is a lady with NH large b cell lymphoma on chemo with sig mediastinal lymphadenopathy, bony mets worsening performance status withy reactive airway disease with mild asthma , chronic left lower and upper rib cage pain now has * Significant fatigue, inability to eat, at times dysphagia, probably related to her chemotherapy with profound neutropenia * Status post fall with pain in the abdominal area * Chronic chest pain in the left rib cage area with previous admission probably related to musculoskeletal pain versus bony metastasis which she has had before. * Left lower lobe atelectasis versus pneumonia difficult to differentiate as she has significant neutropenia * Atrial fibrillation with rapid ventricular response * Dehydration due to poor by mouth intake * Mild dysphagia in a patient with previous history of esophageal diverticulum * Lower ext edema no vte and pt has sig pulm htn due to diastolic heart with rt heart dysfunction * [place] lymphoma with widespread lymphadenopathy and bony mets on chemo, now with neutropenia * Valvular heart disease * Hypothyroidism on supplementation * History of sleep apnea which is stable, now does not have cpap as she has lost wt, and her sleep apnea seems to have improved * B12 def RECOMMENDATION Panculture. Gentle IV fluids. Rate control therapy. Broad-spectrum antibiotics for now. Patient does not have any fever. Watch for any active fever. I'm not sure whether she had any neutropenia induced fever. So far. When she gets adequate fluids. If she continues to have pain in the left abductor abdominal area. She should get a CT scan of the chest abdomen and pelvis with intravenous contrast to evaluate any other pathology. Check amylase, lipase. Rate control medications. We will follow closely. Prognosis guarded. Discussed with the patient extensively Consult Acknowledgment - Thank you for your consult request.
--- NOTE | 2016-12-16 16:08 | NUR ---
HOUSE STAFF AT BEDSIDE
--- NOTE | 2016-12-16 17:24 | NUR ---
PT IS GOING TO ROOM 177-1
--- NOTE | 2016-12-16 17:32 | NUR ---
DIETARY CALLED FOR CHICKEN SOUP
--- NOTE | 2016-12-16 18:00 | NUR ---
PT REFUSING PORT ACCESS "IT'S FOR CHEMO ONLY, I'M NOT USING IT FOR ANYTHING HERE." CIGARETTE PAPER TESTER AWARE, WILL CALL LAB FOR BLOOD CULTURE SPECIMEN
--- NOTE | 2016-12-16 18:12 | NUR ---
REPORT GIVEN TO FRANKIE JENSEN
--- NOTE | 2016-12-16 18:14 | CT SCAN REPORT ---
EXAMINATION: CT CHEST ABDOMEN AND PELVIS WITH CONTRAST CLINICAL INFORMATION: Abdominal pain, diarrhea, history of lymphoma COMPARISON: July 04, [address] scan, February 02, 2015 CT scan abdomen and pelvis TECHNIQUE: Multidetector volumetric imaging was performed of the abdomen and pelvis before and after the IV administration of 100 mL of Omnipaque 300 intravenous contrast. Sagittal and coronal reformatted images were obtained on the technologist's workstation. DLP: 329.33 mGy-cm FINDINGS: CHEST: There is moderate cardiomegaly with enlargement of the left atrium and right ventricle. Mitral valve calcifications present, better seen on coronal image 47/87. Findings could represent mitral stenosis. Clinical and echocardiographic correlation is suggested. Atherosclerotic calcifications of aortic arch and coronary arteries seen. No pericardial effusion. The trachea and klaus are unremarkable. There is no hilar or axillary adenopathy. Borderline enlarged subcarinal lymph node up to 10 mm in short axis noted. There is moderate dilatation of pulmonary veins. Prominence of pulmonary interstitial markings also seen. Findings suggest pulmonary edema. Moderate bilateral pleural effusions also present. No pneumothorax. ABDOMEN/PELVIS: LIVER, GALLBLADDER, AND BILIARY TREE: The IVC and hepatic veins are engorged. There is diffuse heterogeneous enhancement of hepatic parenchyma which could be due to some degree of congestion. The portal vein is patent. No focal hepatic lesion or biliary ductal dilatation is present. The gallbladder is not seen. Clinical correlation for prior cholecystectomy is suggested. PANCREAS: Unremarkable. SPLEEN: The spleen is normal in size. Patchy enhancement of the splenic parenchyma can be due to sinusoidal enhancement. There is a 10 mm round nonenhancing lesion within the medial spleen, axial image 52/112 from series 2 and a 10 mm lesion in the lateral aspect of the spleen, axial image 57/112 from series 2. These are new findings since 2015 CT scan. These areas cannot be fully evaluated on PET CT scan dated July 04, 2016 due to lack of intravenous contrast. Splenic arterial calcifications present. ADRENAL GLANDS: Unremarkable. KIDNEYS AND URETERS: The kidneys are normal in size without evidence of hydronephrosis. There is a 3.3 x 2.7 x 1.6 cm area of lower cortical enhancement in the lower pole of the right kidney which is a new finding since 2015 CT scan. There is adjacent fat stranding. Findings could be infectious or neoplastic in etiology. It is seen on axial image 72/112 from series 2 and coronal image 42/87. There is a 9 mm renal cortical hypodensity in the upper pole of left kidney which has not changed since 2015 and could represent a renal cortical cyst. BLADDER: Unremarkable. GASTROINTESTINAL TRACT: The stomach and duodenum and small bowel are unremarkable. Severe diverticular disease of sigmoid colon and left colon is present. No definite CT evidence of acute diverticulitis. Appendix is not definitely visualized, however there is no CT evidence of acute appendicitis. ABDOMINAL WALL: No significant hernia is appreciated. LYMPH NODES: There is a 9 mm right diaphragmatic lymph node as seen on axial image 47/112 from series 2. It is similar to 2015 CT scan. There is no retroperitoneal or mesenteric or pelvic adenopathy. VASCULAR: Atherosclerotic calcifications of abdominal aorta and major branches seen. No aneurysmal dilatation. PELVIC VISCERA: Unremarkable. OSSEOUS STRUCTURES: Unremarkable. IMPRESSION: 1. Cardiomegaly with enlargement of the left atrium and right ventricle with associated mitral valve calcifications suggest mitral valve stenosis. It has caused pulmonary edema and bilateral pleural effusions and engorgement of the IVC and hepatic veins and some degree of hepatic congestion. No ascites seen. 2. Irregular area of abnormal, (lower) renal cortical enhancement in the right kidney with adjacent fat stranding. Findings could be infectious, (representing pyelonephritis) or neoplastic in etiology. Considering patient's personal history of lymphoma, involvement of right kidney by lymphoma is possible. 3. Splenic lesions. Infectious or neoplastic etiologies such as involvement by lymphoma to be considered. 4. Diverticular disease of colon without evidence of acute diverticulitis.
[2016-12-16 19:26] VITALS: BP 116/62
[2016-12-16 23:34] VITALS: BP 118/62
[2016-12-17 08:46] VITALS: BP 144/78
--- NOTE | 2016-12-17 10:51 | PN- Pulmonary ---
Subjective HPI/Critical Care Issues: Doing much better Afebrile Overall seems to be improving O2 sats oxygen saturation is better No nausea vomiting diarrhea Significant data reviewed sodium is stable creatinine pending white count pending Cultures so far unremarkable Patient did have a CT scan of the chest abdomen and pelvis which revealed significant cardiomegaly, mitral stenosis, bilateral pleural effusion, pulmonary hypertension, irregular area of abnormal renal cortical enhancement in the right kidney suggestive of probable pyelonephritis or neoplasm. Splenic lesions also noted diverticular disease noted Objective Current Medications: Current Medications Sig/Timi Start time Last Medication Dose Route Stop Time Status Admin Ascorbic Acid 500 MG TID 12/16 1809 AC 12/17 PO 0954 Azithromycin 500 MG ONCE ONE 12/16 1415 DC 12/16 Dextrose/Water 250 ML IV 12/16 1514 1725 Calcium/Vitamin D 500 MG DAILY 12/17 1000 AC 12/17 PO 0955 Ceftazidime 0 .STK-MED ONE 12/16 1449 DC .ROUTE Ceftazidime 1,000 MG ONCE ONE 12/16 1400 DC 12/16 IV 12/16 1401 1455 Folic Acid 1 MG DAILY 12/17 1000 AC 12/17 PO 0954 Furosemide 40 MG DAILY 12/17 1000 AC 12/17 IV 0955 Furosemide 20 MG ONCE ONE 12/16 1900 DC 12/16 IV 12/16 1901 2154 Levothyroxine Sodium 0.125 MG DAILY AC 12/17 0700 AC 12/17 PO 0730 Lidocaine 1 PAT DAILY PRN 12/16 1815 AC EXT Metoprolol Tartrate 50 MG BID 12/16 2200 AC 12/17 PO 0954 Metoprolol Tartrate 5 MG ONCE ONE 12/16 1345 DC 12/16 IV 12/16 1346 1346 Metoprolol Tartrate 0 .STK-MED ONE 12/16 1342 DC IV Mirabegron 25 MG DAILY 12/16 1815 AC 12/17 PO 0955 Multivitamins 1 TAB DAILY 12/17 1000 AC 12/17 Therapeutic PO 0954 Nicotinic Acid 500 MG DAILY 12/17 1000 AC 12/17 PO 0954 Omeprazole 20 MG DAILY AC 12/17 0700 AC 12/17 PO 0710 Ondansetron HCl 4 MG ONCE ONE 12/16 1345 DC IV 02 1346 Patient Medication 1 UNIT ONE NR 12/16 1830 ID Teaching ED 12/16 1900 Patient Medication 1 UNIT ONE NR 12/16 1830 DC Teaching ED 12/16 1900 Potassium Chloride 20 MEQ DAILY 12/17 1000 AC 12/17 PO 0955 Rivaroxaban 15 MG 1700 12/16 1815 AC 12/16 PO 2154 Sodium Chloride 1,000 ML Q20H 12/16 1630 DC IV Tiotropium [place] 1 PUF DAILY 12/17 1000 AC 12/17 INH 0953 Tramadol HCl 50 MG BID PRN 12/16 2200 AC 12/17 PO 0447 Vancomycin HCl 0 .STK-MED ONE 12/16 1449 DC .ROUTE Vancomycin HCl 1,000 MG ONCE ONE 12/16 1400 DC 12/16 Dextrose/Water 250 ML IV 12/16 1459 1500 Vitamin E 400 IU 1700 12/17 1700 AC PO Vital Signs & I&O Last 24 Hrs of Vitals and I&O: Laboratory Tests 12/16 12/16 12/16 1837 1652 1435 Chemistry Lactic Acid (0.7 - 2.1 mmol/L) Cancelled 1.2 Coagulation PT (9.4 - 12.5 SEC) 12.1 INR (0.90 - 1.19) 1.15 APTT (25 - 37 SEC) 26 D-Dimer (70 - 232 ng/ml) 610 H Urines Urine Color (YEL,AMB,STR) YEL Urine Clarity (CLEAR) HAZY H Urine pH (5.0 - 8.0) 6.0 Ur Specific [place] (1.001 - 1.035) 1.010 Urine Protein (NEG,<30 MG/DL) TRACE H Urine Ketones (NEG) NEG Urine Nitrite (NEG) POS H Urine Bilirubin (NEG) NEG Urine Urobilinogen (0.1 - 1.0 EU/dl) 0.2 Ur Leukocyte Esterase (NEG) NEG Ur Microscopic SEDIMENT EXAMINED Urine WBC (0 - 2 /HPF) 1-3 H Ur Epithelial Cells (NONE,FEW) PACKD H Urine Mucus (FEW,NONE) FEW Urine Hemoglobin (NEG) NEG Urine Glucose (N MG/DL) NEG 12/16 1300 Chemistry Sodium (137 - 145 mmol/L) 135 L Potassium (3.5 - 5.1 mmol/L) 3.7 Chloride (98 - 107 mmol/L) 96 L Carbon Dioxide (22 - 30 mmol/L) 33 H Anion Gap (5 - 16) 6 BUN (7 - 17 mg/dL) 15 Creatinine (0.5 - 1.0 mg/dL) 0.9 Estimated GFR (>60 ml/min) 59 L BUN/Creatinine Ratio (7 - 25 %) 16.7 Glucose (65 - 99 mg/dL) 125 H Calcium (8.4 - 10.2 mg/dL) 8.7 Total Bilirubin (0.2 - 1.3 mg/dL) 1.3 AST (14 - 36 U/L) 28 ALT (9 - 52 U/L) 36 Alkaline Phosphatase (<127 U/L) 71 Troponin I (< 0.11 ng/ml) 0.02 Flc-X-Yjzhoskjwet Pept (<125 pg/mL) 12739 H Total Protein (6.3 - 8.2 g/dL) 6.1 L Albumin (3.5 - 5.0 g/dL) 3.2 L Globulin (1.9 - 4.2 gm/dL) 2.9 Albumin/Globulin Ratio (1.1 - 2.2 %) 1.1 Amylase (30 - 110 U/L) < 30 L Lipase (23 - 300 U/L) 42 Hematology CBC w Diff MAN DIFF ORDERED WBC (4.8 - 10.8 /CUMM) 0.7 *L RBC (4.20 - 5.40 /CUMM) 3.47 L Hgb (12.0 - 16.0 G/DL) 10.2 L Hct (37 - 47 %) 30.2 L MCV (81.0 - 99.0 FL) 87.0 MCH (27.0 - 31.0 PG) 29.4 RDW (11.5 - 14.5 %) 14.3 Plt Count (130 - 400 /CUMM) 152 MPV (7.4 - 10.4 FL) 9.4 Gran % (42.2 - 75.2 %) 8.1 L Lymphocytes % (20.5 - 51.1 %) 32.4 Monocytes % (1.7 - 9.3 %) 35.6 H Eosinophils % (0 - 5 %) 22.9 H Basophils % (0.0 - 2.0 %) 1.0 Absolute Granulocytes (1.4 - 6.5 /CUMM) 0.1 L Absolute Lymphocytes (1.2 - 3.4 /CUMM) 0.2 L Absolute Monocytes (0.10 - 0.60 /CUMM) 0.2 Absolute Eosinophils (0.0 - 0.7 /CUMM) 0.2 Absolute Basophils (0.0 - 0.2 /CUMM) 0 Platelet Estimate (ADEQUATE) VERIFIED BY SMEAR Polychromasia 1+ PUBS MCHC (33.0 - 37.0 G/DL) 33.8 Microbiology Date/Time Procedure - Status Source Growth 12/16 183 Urine Culture - RES URINE ROUT 12/16 174 Clostridium difficile Toxin A & B - COLB STOOL 12/16 1744 Stool Culture - COLB STOOL 12/16 162 Blood Culture - CAN BLOOD Cancelled: SPECIMEN NOT RECEIVED IN LABORATORY 12/16 1628 Blood Culture - CAN BLOOD Cancelled: SPECIMEN NOT RECEIVED IN LABORATORY 12/16 1449 Respiratory Culture - ORD LOWER RESP 12/16 144 Gram Stain - ORD LOWER RESP Vital Signs Date Time Temp Pulse Resp B/P Pulse O2 O2 Flow FiO2 Ox Delivery Rate 12/17 0954 109 130/60 12/17 0846 97.5 109 18 144/78 97 Nasal 2.0L Cannula 12/17 0000 94 Nasal 2.0L Cannula 12/16 2334 97.9 112 24 118/62 95 Nasal 2.0L Cannula 12/16 2157 107 118/68 12/16 1945 96 Nasal 2.0L Cannula 12/16 1926 97.6 106 24 116/62 96 Nasal 2.0L Cannula 12/16 1858 100 18 117/59 99 Nasal 2.0L Cannula 12/16 1727 98.2 112 16 118/72 100 Room Air / 1444 115 16 118/71 99 Nasal 2.0L Cannula 12/16 1347 133 16 111/73 02 1346 133 111/73 04 1307 100 Nasal 2.0L Cannula 12/16 1246 98.3 144 16 101/69 98 Room Air Intake & Output 12/17 1600 02/05 0800 02/ 0000 Intake Total 100 625 Output Total 400 400 Balance -300 225 Intake, IV 500 Intake, Oral 100 125 Number 3 1 Bowel Movements Output, Urine 400 400 Patient 136 lb Weight Impression/Plan Impression/Plan Impression/Plan: Physical Exam: General: WD/ WN female in NAD; alert and oriented x 3 Neck: no JVD, no carotid bruit Heart: irregularly irregular with 2/6 systolic murmur . Abdomen soft. Tenderness in the left sub-costal area Lungs: clear bilaterally Extremities: trace edema Significant data BUN/creatinine stable. Sodium 135, bicarbonate 33. LFTs were unremarkable troponin was normal white count 0.7, platelets adequate, hemoglobin 10.2 CT chest abdomen and pelvis done on 12/16/2016 IMPRESSION: 1. Cardiomegaly with enlargement of the left atrium and right ventricle with associated mitral valve calcifications suggest mitral valve stenosis. It has caused pulmonary edema and bilateral pleural effusions and engorgement of the IVC and hepatic veins and some degree of hepatic congestion. No ascites seen. 2. Irregular area of abnormal, (lower) renal cortical enhancement in the right kidney with adjacent fat stranding. Findings could be infectious, (representing pyelonephritis) or neoplastic in etiology. Considering patient's personal history of lymphoma, involvement of right kidney by lymphoma is possible. 3. Splenic lesions. Infectious or neoplastic etiologies such as involvement by lymphoma to be considered. 4. Diverticular disease of colon without evidence of acute diverticulitis. IMPRESSION This is a lady with [place] large b cell lymphoma on chemo with sig mediastinal lymphadenopathy, bony mets worsening performance status withy reactive airway disease with mild asthma , chronic left lower and upper rib cage pain now has * Significant fatigue, inability to eat, at times dysphagia, probably related to her chemotherapy with profound neutropenia * Significant abnormality noted in the renal area in the right kidney with perinephric stranding, rule out pyelonephritis * Status post fall with pain in the abdominal area * Chronic chest pain in the left rib cage area with previous admission probably related to musculoskeletal pain versus bony metastasis which she has had before. * Bilateral pleural effusion, mitral stenosis with cardiomegaly, severe pulmonary hypertension * CT finding suggestive of pulmonary edema after fluid resuscitation * Atrial fibrillation with rapid ventricular response * Resolved Dehydration due to poor by mouth intake * Mild dysphagia in a patient with previous history of esophageal diverticulum * Lower ext edema no vte and pt has sig pulm htn due to diastolic heart with rt heart dysfunction * [place] lymphoma with widespread lymphadenopathy and bony mets on chemo, now with neutropenia * Valvular heart disease * Hypothyroidism on supplementation * History of sleep apnea which is stable, now does not have cpap as she has lost wt, and her sleep apnea seems to have improved * B12 def RECOMMENDATION Panculture. Antibiotics per primary team may require an infectious disease consult Gentle IV fluids, if she is able to take by mouth this could be held. Check blood work Rate control therapy. Broad-spectrum antibiotics for now. We will follow closely. Prognosis guarded.
--- NOTE | 2016-12-17 13:01 | PN- Att Addend ---
Attending Addendum Attending Brief Note Patient seen and examined, feeling slightly better today. Her left lower quadrant pain has improved slightly. She currently denies any chest pain. She claims that her breathing is also slightly better today. Vital Signs Date Time Temp Pulse Resp B/P Pulse O2 O2 Flow FiO2 Ox Delivery Rate 12/17 1202 Nasal 2.0L Cannula 12/17 1202 95 Nasal 2.0L Cannula 12/17 0954 109 130/60 12/17 0846 97.5 109 18 144/78 97 Nasal 2.0L Cannula 12/17 0800 94 Nasal 2.0L Cannula 12/17 0000 94 Nasal 2.0L Cannula 12/16 2334 97.9 112 24 118/62 95 Nasal 2.0L Cannula 12/16 2157 107 118/68 12/16 1945 96 Nasal 2.0L Cannula 12/16 1926 97.6 106 24 116/62 96 Nasal 2.0L Cannula 12/16 1858 100 18 117/59 99 Nasal 2.0L Cannula 12/16 1727 98.2 112 16 118/72 100 Room Air 12/16 1444 115 16 118/71 99 Nasal 2.0L Cannula 12/16 1347 133 16 111/73 12/16 1346 133 111/73 /04 1307 100 Nasal 2.0L Cannula on exam; aox3, nad. cv; s1,s2, irregular. resp; + b/l basal crackles. abd; soft, nt, bs+ ext; trace edema. Laboratory Tests 12/16 12/16 1900 1837 Chemistry Troponin I Cancelled Urines Urine Color (YEL,AMB,STR) YEL Urine Clarity (CLEAR) HAZY H Urine pH (5.0 - 8.0) 6.0 Ur Specific [place] (1.001 - 1.035) 1.010 Urine Protein (NEG,<30 MG/DL) TRACE H Urine Ketones (NEG) NEG Urine Nitrite (NEG) POS H Urine Bilirubin (NEG) NEG Urine Urobilinogen (0.1 - 1.0 EU/dl) 0.2 Ur Leukocyte Esterase (NEG) NEG Ur Microscopic SEDIMENT EXAMINED Urine WBC (0 - 2 /HPF) 1-3 H Ur Epithelial Cells (NONE,FEW) PACKD H Urine Mucus (FEW,NONE) FEW Urine Hemoglobin (NEG) NEG Urine Glucose (N MG/DL) NEG 12/16 12/16 12/16 1652 1435 1300 Chemistry Sodium (137 - 145 mmol/L) 135 L Potassium (3.5 - 5.1 mmol/L) 3.7 Chloride (98 - 107 mmol/L) 96 L Carbon Dioxide (22 - 30 mmol/L) 33 H Anion Gap (5 - 16) 6 BUN (7 - 17 mg/dL) 15 Creatinine (0.5 - 1.0 mg/dL) 0.9 Estimated GFR (>60 ml/min) 59 L BUN/Creatinine Ratio (7 - 25 %) 16.7 Glucose (65 - 99 mg/dL) 125 H Lactic Acid (0.7 - 2.1 mmol/L) Cancelled 1.2 Calcium (8.4 - 10.2 mg/dL) 8.7 Total Bilirubin (0.2 - 1.3 mg/dL) 1.3 AST (14 - 36 U/L) 28 ALT (9 - 52 U/L) 36 Alkaline Phosphatase (<127 U/L) 71 Troponin I (< 0.11 ng/ml) 0.02 Bcl-O-Ryvhqjwomia Pept (<125 pg/mL) 50355 H Total Protein (6.3 - 8.2 g/dL) 6.1 L Albumin (3.5 - 5.0 g/dL) 3.2 L Globulin (1.9 - 4.2 gm/dL) 2.9 Albumin/Globulin Ratio (1.1 - 2.2 %) 1.1 Amylase (30 - 110 U/L) < 30 L Lipase (23 - 300 U/L) 42 Coagulation PT (9.4 - 12.5 SEC) 12.1 INR (0.90 - 1.19) 1.15 APTT (25 - 37 SEC) 26 D-Dimer (70 - 232 ng/ml) 610 H Hematology CBC w Diff MAN DIFF ORDERED WBC (4.8 - 10.8 /CUMM) 0.7 *L RBC (4.20 - 5.40 /CUMM) 3.47 L Hgb (12.0 - 16.0 G/DL) 10.2 L Hct (37 - 47 %) 30.2 L MCV (81.0 - 99.0 FL) 87.0 MCH (27.0 - 31.0 PG) 29.4 RDW (11.5 - 14.5 %) 14.3 Plt Count (130 - 400 /CUMM) 152 MPV (7.4 - 10.4 FL) 9.4 Gran % (42.2 - 75.2 %) 8.1 L Lymphocytes % (20.5 - 51.1 %) 32.4 Monocytes % (1.7 - 9.3 %) 35.6 H Eosinophils % (0 - 5 %) 22.9 H Basophils % (0.0 - 2.0 %) 1.0 Absolute Granulocytes (1.4 - 6.5 /CUMM) 0.1 L Absolute Lymphocytes (1.2 - 3.4 /CUMM) 0.2 L Absolute Monocytes (0.10 - 0.60 /CUMM) 0.2 Absolute Eosinophils (0.0 - 0.7 /CUMM) 0.2 Absolute Basophils (0.0 - 0.2 /CUMM) 0 Platelet Estimate (ADEQUATE) VERIFIED BY SMEAR Polychromasia 1+ PUBS MCHC (33.0 - 37.0 G/DL) 33.8 A/P: 86 y/o F with pmh sig for atrial fibrillation, CHF, COPD, GERD, diverticulosis, nephrolithiasis, osteoarthritis, GERD, hypothyroidism,, pernicious anemia, B12 deficiency, non-Hodgkin's lymphoma s/p radiation and now undergoing Chemo now admitted with anthony, initially with possiblity of pneumonia but CT chest is consistent with CHF/ pleural effusions. There is also ? of possiblility of pyelonephritis vs lymphoma lesions on kidneys, possibilty of infectious vs lymphoma lesions on spleen. Pt was in rapid afib on admission. Urinalysis is not significant. Patient did receive broad-spectrum antibiotics. Continue vacnco ceftaz for now. We have consulted infectious disease. Please consult oncology, Dr. Stevenson is her oncologist. The lesions on her CAT scan are not clear if those are related to infectious process versus lymphoma. Appreciate pulmonology input. Continue all other current medications. DVT prophylaxis: Xarelto.
--- NOTE | 2016-12-17 15:05 | Cons- Infect Disease ---
General Information and HPI Consulting Request Date of Consult: 12/17/16 Requested By: KERRIE JORDAN MD Reason for Consult: Neutropenia status post chemotherapy Source of Information: patient, old records Exam Limitations: poor historian History of Present Illness: This is an 86-year-old woman diagnosed with non-Hodgkin's lymphoma after biopsy of a right submandibular mass 6 months prior to admission, begun on Cytoxan, DOG TRACK [employer]EL MA[employer]GER- 14 and prednisone 4 months prior to admission, which has been continued on a regular basis since then, most recently 1-2 weeks prior to admission, via a Port -A-Cath that was placed in the right subclavian vein 3-1/2 months prior to admission, hospitalized at [facility] one month prior to admission with "pneumonia", with no details available regarding this hospitalization, admitted on December 16 after a fall at home, injuring her face and right hip, with the complaint of weakness, low-grade fevers, chest discomfort with a dry cough, abdominal discomfort and diarrhea. On admission she was afebrile. Laboratory data revealed a white blood cell count of 700, with 100 neutrophils, BUN/ creatinine 15 and 0.9, with normal liver enzymes, BNP 16,100, coags normal. Urinalysis 1-3 WBCs. Chest x-ray revealed a left lower lobe opacity. CT of the chest, abdomen and pelvis revealed cardiomegaly, with congestion, an irregular enhancement in the lower pole of the right kidney and several splenic lesions. She was given Azithromycin, Vancomycin and Ceftazidime and was then followed off antibiotics. She has remained afebrile. Present she complains of weakness and right hip/lateral thigh pain secondary to her recent fall. Allergies/Medications Allergies: Coded Allergies: Penicillins (RASH 12/16/16) acetaminophen (BURNING FEELING IN STOMACH 12/16/16) garlic (NAUSEA 12/16/16) latex (SORES 12/16/16) mold (UNKNOWN 12/16/16) onion (NAUSEA 12/16/16) Sulfa (Sulfonamide Antibiotics) (GI 12/16/16) aspirin (MILD GI 12/16/16) diazepam (GI 12/16/16) oxycodone (GI, MIGRAINE 12/16/16) propoxyphene (GI 12/16/16) Uncoded Allergies: COLOGNE (PER PT UPSETS HER WITH THE SMELL 10/17/16) HAIR SPRAY (PER PT UPSETS HER WITH THE SMELL 10/17/16) SMOKE (PER PT CANT STAND SMELLS IT UPSETS HER 10/17/16) Home Med List: Ascorbic Acid (Vitamin C) 500 MG TABLET 1 TAB PO TID SUPPLEMENT (Reported) Biotin 5 MG CAPSULE 1 TAB PO DAILY SUPPLEMENT (Reported) Calcium Carbonate/Vitamin D3 (Calcium 600 + Vit D Tablet) 1 EACH TABLET 1 TAB PO DAILY SUPPLEMENT (Reported) Calcium Citrate/Vitamin D3 (Citracal + D Maximum Caplet) 315 MG-250 UNIT TABLET 1 TAB PO BID SUPPLEMENT (Reported) Cholecalciferol (Vitamin D3) (Vitamin D3) 5,000 UNIT TABLET 1 TAB PO DAILY SUPPLEMENT (Reported) Cyanocobalamin (Vitamin B-12) (Cyanocobalamin Injection) 1,000 MCG/1 ML VIAL 1 ML IM Q30D SUPPLEMENT (Reported) Estradiol (Climara) 0.0375 MG/24 HOUR PATCH.TDWK 1 PATCH TOP ESTROGEN ( Reported) Flaxseed Oil (Flax Oil) 1,000 MG CAPSULE 1 CAP PO DAILY SUPPLEMENT (Reported) Folic Acid 0.8 MG TABLET 1 TAB PO BID SUPPLEMENT (Reported) Furosemide (Lasix) 80 MG TABLET 1 TAB PO DAILY WATER PILL (Reported) Glucosam Sul Na/Chondr Shepard A Na (Glucosamine-Chondroitin Tablet) 750 MG-600 MG TABLET 1 TAB PO BID SUPPLEMENT (Reported) Lactose-Reduced Food (Ensure Liquid) 237 ML LIQUID 237 ML PO TID PRN NUTRITIONAL SUPPLEMENT (Reported) Levothyroxine Sodium (Synthroid) 0.125 MG TAB 1 TAB PO DAILY AC THYROID ( Reported) Lidocaine 5 % ADH..PATCH 1 PAT TOP DAILY PRN PAIN (Reported) Magnesium Oxide 400 MG TABLET 1 TAB PO DAILY SUPPLEMENT (Reported) Metoprolol Tartrate (Lopressor) 25 MG TABLET 2 TAB PO BID BLOOD PRESSURE ( Reported) Reason to Stop at ADM: gi bleed and possibility of hypotension Mirabegron (Myrbetriq) 25 MG TAB.ER.24H 1 TAB PO DAILY BLADDER (Reported) Multivitamin (Multiple Vitamins) 1 EACH TABLET 1 TAB PO DAILY SUPPLEMENT ( Reported) Niacinamide (Niacin) 500 MG TABLET 1 TAB PO DAILY SUPPLEMENT (Reported) Pantoprazole Sodium (Protonix) 40 MG TABLET.DR 1 TAB PO BID GI (Reported) Pantoprazole Sodium 40 MG TABLET.DR 1 TAB PO DAILY GI (Reported) Potassium Chloride 20 MEQ TABLET.ER 1 TAB PO QAM SUPPLEMENT (Reported) [PRIMROSE OIL] 1,000 MG PO DAILY SUPPLEMENT (Reported) Rivaroxaban (Xarelto) 15 MG TABLET 1 TAB PO 1700 BLOOD THINNER (Reported) Tiotropium [place] (Spiriva) 18 MCG CAP.W.DEV 1 CAP INH DAILY BREATHING PROBLEMS (Reported) Tramadol HCl 50 MG TABLET 1 TAB PO BIDP PRN PAIN (Reported) Vitamin E Mixed (Vitamin E) 1,000 UNIT CAPSULE 1 CAP PO DAILY SUPPLEMENT ( Reported) Past History Travel History Traveled to [place] past 21 day No Medical History Blood Transfusion Hx: No Neurological: syncope EENT: submandibular masses Cardiovascular: AFIB, CAD (s/p stent), CHF, rheumatic fever Respiratory: COPD, obstructive sleep apnea Gastrointestinal: GERD, DIVERTICULOSIS Hepatic: NONE Renal: kidney stones Musculoskeletal: osteoarthritis, sciatica Psychiatric: NONE Endocrine: hypothyroidism Blood Disorders: PERNICIOUS ANEMIA B12 deficiency Cancer(s): non-hodgkin lymphoma, CHEMO INJECTION GIVEN 08/10/16 TRIAGE NURSE/Reproductive: HYSTERECTOMY Other Medical Hx: Rheumatic fever, asthma, hypothyroidism, cholecystectomy, hysterectomy, diastolic dysfunction, sleep apnea, coronary artery disease, chronic atrial fibrillation. History of MRSA: No History of VRE: No History of CDIFF: No Isolation History: Neutropenic precautions Pneumonia Vaccine: 11/02/08 Influenza Vaccine: 08/18/16 Surgical History Surgical History: cholecystectomy, hernia repair-inguinal, hysterectomy (benign) , bladder surgery Family History Relations & Conditions If Any: MOTHER (hypertension, coronary artery disease and stroke). Relation not specified for: FH: coronary artery disease FH: hypertension FH: stroke Psychosocial History Where Do You Live? Home Who Do You Live With? self Services at Home: Home Health Aide, Nursing Primary Language: Kosovan Smoking Status: Never Smoked ETOH Use: denies use Illicit Drug Use: denies illicit drug use Living Will? no Power of [place]/HCP? yes Name of POA/HCP: Pt's son, Juliocesar Saldana. Functional Ability ADLs Independent: dressing, eating, toileting, bathing. Ambulation: independent IADLs Independent: shopping, housework, finances, food prep, telephone, transportation , medication admin. Review of Systems Review of Systems Constitutional: Reports: malaise, weakness. Cardiovascular: Reports: chest pain. Respiratory: Reports: cough, short of breath. GI: Reports: abdominal pain, diarrhea. Genitourinary: Reports: no symptoms. All Other Systems: Reviewed and Negative Exam & Diagnostic Data Last 24 Hrs of Vital Signs/I&O Vital Signs Date Time Temp Pulse Resp B/P Pulse O2 O2 Flow FiO2 Ox Delivery Rate 12/17 1202 Nasal 2.0L Cannula 12/17 1202 95 Nasal 2.0L Cannula 12/17 0954 109 130/60 12/17 0846 97.5 109 18 144/78 97 Nasal 2.0L Cannula 12/17 0800 94 Nasal 2.0L Cannula 12/17 0000 94 Nasal 2.0L Cannula 12/16 2334 97.9 112 24 118/62 95 Nasal 2.0L Cannula 12/16 2157 107 118/68 12/16 1945 96 Nasal 2.0L Cannula 12/16 1926 97.6 106 24 116/62 96 Nasal 2.0L Cannula 12/16 1858 100 18 117/59 99 Nasal 2.0L Cannula 12/16 1727 98.2 112 16 118/72 100 Room Air Intake & Output 12/17 1600 12/17 0800 12/17 0000 Intake Total 240 100 625 Output Total 400 400 Balance 240 -300 225 Intake, IV 500 Intake, Oral 240 100 125 Number 3 1 Bowel Movements Output, Urine 400 400 Patient 136 lb Weight Physical Exam Other Physical Findings: She is awake and alert in no acute distress. She is afebrile. Skin reveals no rash. HEENT exam is negative, with no thrush. Chest Port-A-Cath in the right upper chest with no inflammation at the site. Neck is supple with no adenopathy appreciated. Lungs crackles at the right base. Heart irregular rhythm with no murmur. Abdomen is soft, tender to palpation diffusely, with no guarding or rebound, with positive bowel sounds. Back no CVA tenderness. Extremities right lateral thigh tender on palpation, with mild swelling; no cyanosis, clubbing or edema of the lower extremities. Neuro is without focality. Last 24 Hours of Lab Results: Laboratory Tests 12/16 12/16 1900 1837 Chemistry Troponin I Cancelled Urines Urine Color (YEL,AMB,STR) YEL Urine Clarity (CLEAR) HAZY H Urine pH (5.0 - 8.0) 6.0 Ur Specific [place] (1.001 - 1.035) 1.010 Urine Protein (NEG,<30 MG/DL) TRACE H Urine Ketones (NEG) NEG Urine Nitrite (NEG) POS H Urine Bilirubin (NEG) NEG Urine Urobilinogen (0.1 - 1.0 EU/dl) 0.2 Ur Leukocyte Esterase (NEG) NEG Ur Microscopic SEDIMENT EXAMINED Urine WBC (0 - 2 /HPF) 1-3 H Ur Epithelial Cells (NONE,FEW) PACKD H Urine Mucus (FEW,NONE) FEW Urine Hemoglobin (NEG) NEG Urine Glucose (N MG/DL) NEG 12/16 1652 Chemistry Lactic Acid Cancelled Last 24 Hours of Bill Results: Urine culture December 16 negative Diagnostic Data Recent Imaging Findings: Chest x-ray December 16, personally reviewed, negative CT of the chest, abdomen and pelvis reveals cardiomegaly, with congestion, an irregular enhancement in the lower pole of the right kidney and several splenic lesions. Assessment/Plan Assessment/Plan Impression: This is an 86-year-old woman diagnosed with non-Hodgkin's lymphoma 6 months prior to admission and maintained on chemotherapy for the past 4 months, admitted on December 16 after a fall at home with increasing weakness along with other complaints including shortness of breath, abdominal discomfort and diarrhea, found to be afebrile and neutropenic, with no obvious focus of infection and with a negative urine culture to date. Unfortunately no blood cultures were obtained; however, as she is afebrile and has no obvious focus of infection, she can be followed off antibiotics pending further evaluation. Possible sources of infection includes C. difficile, with diarrhea in the setting of recent antibiotics, presumably given during her recent hospitalization at [facility], neutropenic enterocolitis, with her abdominal discomfort, though her GI symptoms may be secondary to her recent chemotherapy, and the Port-A-Cath, as no blood cultures were obtained. Her CT scan does not suggest pneumonia. The etiology of her right renal and splenic lesions is unclear but suspect they may be related to her non-Hodgkin's lymphoma. Suggestion: 1. Oncology evaluation 2. Stool for C. difficile 3. X-ray of the right hip/femur 4. Would follow off antibiotics, with reevaluation, including blood cultures 2 , if she develops a fever Consult Acknowledgment - Thank you for your consult request.
[2016-12-17 16:01] VITALS: BP 105/67
--- NOTE | 2016-12-17 19:52 | RADIOLOGY REPORT ---
EXAMINATION: XR FEMUR, RIGHT CLINICAL INFORMATION: Pain COMPARISON: None TECHNIQUE: AP and lateral views of the right femur were obtained. FINDINGS: There is no acute fracture of the right femur. No lytic or sclerotic bony lesions seen. The right femoral head is well aligned within the acetabulum. The soft tissue is unremarkable. No suprapatellar joint effusion seen. IMPRESSION: Unremarkable right femoral x-ray.
--- NOTE | 2016-12-17 20:26 | RADIOLOGY REPORT ---
EXAMINATION: XR HIP, RIGHT CLINICAL INFORMATION: Pain, weakness COMPARISON: Right femoral x-ray the same day TECHNIQUE: Single AP review of the right hip was obtained. FINDINGS: There is no acute fracture or dislocation seen on this single view of the right hip. Mild narrowing of the joint space considered degenerative in nature. The soft tissue is unremarkable. No large joint effusion seen. IMPRESSION: No acute fracture or dislocation of right hip.
[2016-12-17 23:59] VITALS: BP 108/60
--- NOTE | 2016-12-18 07:16 | Cons- Hematology ---
General Information and HPI Consulting Request Date of Consult: 12/18/16 Requested By: KERRIE JORDAN MD History of Present Illness: 86-year-old woman with known large cell, B-cell lymphoma being treated with Cytoxan, [employer]-16, vincristine, prednisone and Rituxan now admitted with a fall, not associated with loss of consciousness. She is complaining of knee pain. She denied high fevers or rigors Allergies/Medications Allergies: Coded Allergies: Penicillins (RASH 12/16/16) acetaminophen (BURNING FEELING IN STOMACH 12/16/16) garlic (NAUSEA 12/16/16) latex (SORES 12/16/16) mold (UNKNOWN 12/16/16) onion (NAUSEA 12/16/16) Sulfa (Sulfonamide Antibiotics) (GI 12/16/16) aspirin (MILD GI 12/16/16) diazepam (GI 12/16/16) oxycodone (GI, MIGRAINE 12/16/16) propoxyphene (GI 12/16/16) Uncoded Allergies: COLOGNE (PER PT UPSETS HER WITH THE SMELL 10/17/16) HAIR SPRAY (PER PT UPSETS HER WITH THE SMELL 10/17/16) SMOKE (PER PT CANT STAND SMELLS IT UPSETS HER 10/17/16) Home Med List: Ascorbic Acid (Vitamin C) 500 MG TABLET 1 TAB PO TID SUPPLEMENT (Reported) Biotin 5 MG CAPSULE 1 TAB PO DAILY SUPPLEMENT (Reported) Calcium Carbonate/Vitamin D3 (Calcium 600 + Vit D Tablet) 1 EACH TABLET 1 TAB PO DAILY SUPPLEMENT (Reported) Calcium Citrate/Vitamin D3 (Citracal + D Maximum Caplet) 315 MG-250 UNIT TABLET 1 TAB PO BID SUPPLEMENT (Reported) Cholecalciferol (Vitamin D3) (Vitamin D3) 5,000 UNIT TABLET 1 TAB PO DAILY SUPPLEMENT (Reported) Cyanocobalamin (Vitamin B-12) (Cyanocobalamin Injection) 1,000 MCG/1 ML VIAL 1 ML IM Q30D SUPPLEMENT (Reported) Estradiol (Climara) 0.0375 MG/24 HOUR PATCH.TDWK 1 PATCH TOP ESTROGEN ( Reported) Flaxseed Oil (Flax Oil) 1,000 MG CAPSULE 1 CAP PO DAILY SUPPLEMENT (Reported) Folic Acid 0.8 MG TABLET 1 TAB PO BID SUPPLEMENT (Reported) Furosemide (Lasix) 80 MG TABLET 1 TAB PO DAILY WATER PILL (Reported) Glucosam Sul Na/Chondr Shepard A Na (Glucosamine-Chondroitin Tablet) 750 MG-600 MG TABLET 1 TAB PO BID SUPPLEMENT (Reported) Lactose-Reduced Food (Ensure Liquid) 237 ML LIQUID 237 ML PO TID PRN NUTRITIONAL SUPPLEMENT (Reported) Levothyroxine Sodium (Synthroid) 0.125 MG TAB 1 TAB PO DAILY AC THYROID ( Reported) Lidocaine 5 % ADH..PATCH 1 PAT TOP DAILY PRN PAIN (Reported) Magnesium Oxide 400 MG TABLET 1 TAB PO DAILY SUPPLEMENT (Reported) Metoprolol Tartrate (Lopressor) 25 MG TABLET 2 TAB PO BID BLOOD PRESSURE ( Reported) Reason to Stop at ADM: gi bleed and possibility of hypotension Mirabegron (Myrbetriq) 25 MG TAB.ER.24H 1 TAB PO DAILY BLADDER (Reported) Multivitamin (Multiple Vitamins) 1 EACH TABLET 1 TAB PO DAILY SUPPLEMENT ( Reported) Niacinamide (Niacin) 500 MG TABLET 1 TAB PO DAILY SUPPLEMENT (Reported) Pantoprazole Sodium (Protonix) 40 MG TABLET.DR 1 TAB PO BID GI (Reported) Pantoprazole Sodium 40 MG TABLET.DR 1 TAB PO DAILY GI (Reported) Potassium Chloride 20 MEQ TABLET.ER 1 TAB PO QAM SUPPLEMENT (Reported) [PRIMROSE OIL] 1,000 MG PO DAILY SUPPLEMENT (Reported) Rivaroxaban (Xarelto) 15 MG TABLET 1 TAB PO 1700 BLOOD THINNER (Reported) Tiotropium [place] (Spiriva) 18 MCG CAP.W.DEV 1 CAP INH DAILY BREATHING PROBLEMS (Reported) Tramadol HCl 50 MG TABLET 1 TAB PO BIDP PRN PAIN (Reported) Vitamin E Mixed (Vitamin E) 1,000 UNIT CAPSULE 1 CAP PO DAILY SUPPLEMENT ( Reported) Current Medications: Current Medications Sig/Timi Start time Last Medication Dose Route Stop Time Status Admin Albuterol Sulfate 3 ML Q4P PRN 12/17 1215 AC INH Ascorbic Acid 500 MG TID 12/16 1809 AC 12/17 PO 2033 Calcium/Vitamin D 500 MG DAILY 12/17 1000 AC 12/17 PO 0955 Folic Acid 1 MG DAILY 12/17 1000 AC 12/17 PO 0954 Furosemide 40 MG DAILY 12/17 1000 AC 12/17 IV 0955 Levothyroxine Sodium 0.125 MG DAILY AC 12/17 0700 AC 12/18 PO 0617 Lidocaine 1 PAT DAILY PRN 12/16 1815 AC EXT Metoprolol Tartrate 50 MG BID 12/16 2200 AC 12/17 PO 2033 Mirabegron 25 MG DAILY 12/16 1815 AC 12/17 PO 0955 Multivitamins 1 TAB DAILY 12/17 1000 AC 12/17 Therapeutic PO 0954 Nicotinic Acid 500 MG DAILY 12/17 1000 DC 12/17 PO 0954 Omeprazole 20 MG DAILY AC 12/17 0700 AC 12/18 PO 0617 Potassium Chloride 20 MEQ DAILY 12/17 1000 AC 12/17 PO 0955 Rivaroxaban 15 MG 1700 12/16 1815 AC 12/17 PO 1717 Tiotropium [place] 1 PUF DAILY 12/17 1000 AC 12/17 INH 0953 Tramadol HCl 50 MG BID PRN 12/16 2200 AC 12/17 PO 0447 Vitamin E 400 IU 1700 12/17 1700 AC 12/17 PO 1717 Review of Systems Review of Systems: Patient denies new headaches or dizziness. Patient denied new shortness of breath cough chest pain or hemoptysis. Patient denies nausea vomiting or significant abdominal pain. Patient denies dysuria hematuria. 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 Surgical History Surgical History: cholecystectomy, hernia repair-inguinal, hysterectomy (benign) , bladder surgery Family History Relations & Conditions If Any: MOTHER (hypertension, coronary artery disease and stroke). Relation not specified for: FH: coronary artery disease FH: hypertension FH: stroke Psychosocial History Where Do You Live? Home Who Do You Live With? self Services at Home: Home Health Aide, Nursing Primary Language: Malawian Smoking Status: Never Smoked ETOH Use: denies use Illicit Drug Use: denies illicit drug use Living Will? no Power of Physician Ophthalmologist/HCP? yes Name of POA/HCP: Pt's son, Juliocesar Saldnaa. Functional Ability ADLs Independent: dressing, eating, toileting, bathing. Ambulation: independent IADLs Independent: shopping, housework, finances, food prep, telephone, transportation , medication admin. Exam & Diagnostic Data Vital Signs and I&O Vital Signs Date Time Temp Pulse Resp B/P Pulse O2 O2 Flow FiO2 Ox Delivery Rate 12/18 0000 Nasal 2.0L Cannula 12/17 2359 97.9 102 18 108/60 96 Nasal 2.0L Cannula 12/17 2033 102 108/60 12/17 1657 96 Nasal 2.0L Cannula 12/17 1601 98.7 91 18 105/67 98 Nasal 2.0L Cannula 12/17 1600 95 Nasal 2.0L Cannula 12/17 1202 Nasal 2.0L Cannula 12/17 1202 95 Nasal 2.0L Cannula 12/17 0954 109 130/60 12/17 0846 97.5 109 18 144/78 97 Nasal 2.0L Cannula 12/17 0800 94 Nasal 2.0L Cannula Intake & Output 12/18 0800 12/18 0000 12/17 1600 Intake Total 100 400 240 Output Total 250 450 Balance -150 -50 240 Intake, IV 0 0 Intake, Oral 100 400 240 Number 0 1 Bowel Movements Output, Urine 250 450 Patient 137 lb Weight Gen.: in NAD ENT: Sclera anicteric Chest: Normal respiratory effort, decreased breath sounds Cor: RRR, no extra sounds Abdomen: Soft, bowel sounds present, no tenderness, no rebound Extremities: Without clubbing, cyanosis, or asymmetric edema, Neurology: Alert and oriented 3, no gross deficit Skin: Ecchymosis right lower extremity Last 48 Hours of Lab Results: Laboratory Tests 12/17 12/17 12/16 1040 0100 1900 Chemistry Sodium Cancelled Potassium Cancelled Chloride Cancelled Carbon Dioxide Cancelled Anion Gap Cancelled BUN Cancelled Creatinine Cancelled BUN/Creatinine Ratio Cancelled Troponin I Cancelled Cancelled Hematology CBC w Diff Cancelled WBC Cancelled RBC Cancelled Hgb Cancelled Hct Cancelled MCV Cancelled MCH Cancelled RDW Cancelled Plt Count Cancelled MPV Cancelled PUBS MCHC Cancelled 12/16 12/16 12/16 1837 1652 1435 Chemistry Lactic Acid (0.7 - 2.1 mmol/L) Cancelled 1.2 Coagulation PT (9.4 - 12.5 SEC) 12.1 INR (0.90 - 1.19) 1.15 APTT (25 - 37 SEC) 26 D-Dimer (70 - 232 ng/ml) 610 H Urines Urine Color (YEL,AMB,STR) YEL Urine Clarity (CLEAR) HAZY H Urine pH (5.0 - 8.0) 6.0 Ur Specific [place] (1.001 - 1.035) 1.010 Urine Protein (NEG,<30 MG/DL) TRACE H Urine Ketones (NEG) NEG Urine Nitrite (NEG) POS H Urine Bilirubin (NEG) NEG Urine Urobilinogen (0.1 - 1.0 EU/dl) 0.2 Ur Leukocyte Esterase (NEG) NEG Ur Microscopic SEDIMENT EXAMINED Urine WBC (0 - 2 /HPF) 1-3 H Ur Epithelial Cells (NONE,FEW) PACKD H Urine Mucus (FEW,NONE) FEW Urine Hemoglobin (NEG) NEG Urine Glucose (N MG/DL) NEG 12/16 1300 Chemistry Sodium (137 - 145 mmol/L) 135 L Potassium (3.5 - 5.1 mmol/L) 3.7 Chloride (98 - 107 mmol/L) 96 L Carbon Dioxide (22 - 30 mmol/L) 33 H Anion Gap (5 - 16) 6 BUN (7 - 17 mg/dL) 15 Creatinine (0.5 - 1.0 mg/dL) 0.9 Estimated GFR (>60 ml/min) 59 L BUN/Creatinine Ratio (7 - 25 %) 16.7 Glucose (65 - 99 mg/dL) 125 H Calcium (8.4 - 10.2 mg/dL) 8.7 Total Bilirubin (0.2 - 1.3 mg/dL) 1.3 AST (14 - 36 U/L) 28 ALT (9 - 52 U/L) 36 Alkaline Phosphatase (<127 U/L) 71 Troponin I (< 0.11 ng/ml) 0.02 [id number]-[id number]-Rqaejxhlswp Pept (<125 pg/mL) 01552 H Total Protein (6.3 - 8.2 g/dL) 6.1 L Albumin (3.5 - 5.0 g/dL) 3.2 L Globulin (1.9 - 4.2 gm/dL) 2.9 Albumin/Globulin Ratio (1.1 - 2.2 %) 1.1 Amylase (30 - 110 U/L) < 30 L Lipase (23 - 300 U/L) 42 Hematology CBC w Diff MAN DIFF ORDERED WBC (4.8 - 10.8 /CUMM) 0.7 *L RBC (4.20 - 5.40 /CUMM) 3.47 L Hgb (12.0 - 16.0 G/DL) 10.2 L Hct (37 - 47 %) 30.2 L MCV (81.0 - 99.0 FL) 87.0 MCH (27.0 - 31.0 PG) 29.4 RDW (11.5 - 14.5 %) 14.3 Plt Count (130 - 400 /CUMM) 152 MPV (7.4 - 10.4 FL) 9.4 Gran % (42.2 - 75.2 %) 8.1 L Lymphocytes % (20.5 - 51.1 %) 32.4 Monocytes % (1.7 - 9.3 %) 35.6 H Eosinophils % (0 - 5 %) 22.9 H Basophils % (0.0 - 2.0 %) 1.0 Absolute Granulocytes (1.4 - 6.5 /CUMM) 0.1 L Absolute Lymphocytes (1.2 - 3.4 /CUMM) 0.2 L Absolute Monocytes (0.10 - 0.60 /CUMM) 0.2 Absolute Eosinophils (0.0 - 0.7 /CUMM) 0.2 Absolute Basophils (0.0 - 0.2 /CUMM) 0 Platelet Estimate (ADEQUATE) VERIFIED BY SMEAR Polychromasia 1+ PUBS MCHC (33.0 - 37.0 G/DL) 33.8 Assessment/Plan Assessment: 1. Fever/neutropenia-the patient has not been on Neulasta due to adverse toxicity. She appears clinically stable. If today's CBC does not demonstrate increasing white count, recommend- Neupogen 300 mcg s.c. Daily until white count recovers Daily CBC 2. Lymphoma-clinically responding Recommend-please have CAT scan compared to last CTA in October to comment on splenic lesions Recommendations: .. Consult Acknowledgment - Thank you for your consult request.
[2016-12-18 08:50] VITALS: BP 100/60
--- NOTE | 2016-12-18 13:03 | PN- Pulmonary ---
Subjective HPI/Critical Care Issues: She is complaining of knee pain. She denied high fevers or rigors Objective Current Medications: Current Medications Sig/Timi Start time Last Medication Dose Route Stop Time Status Admin Albuterol Sulfate 3 ML Q4P PRN 12/17 1215 AC INH Ascorbic Acid 500 MG TID 12/16 1809 AC 12/18 PO 0929 Calcium/Vitamin D 500 MG DAILY 12/17 1000 AC 12/18 PO 0929 Filgrastim 300 MCG DAILY 12/18 1000 AC 12/18 SC 1038 Folic Acid 1 MG DAILY 12/17 1000 AC 12/18 PO 0925 Furosemide 40 MG DAILY 12/18 1009 AC PO Furosemide 40 MG DAILY 12/17 1000 DC 12/18 IV 0926 Levothyroxine Sodium 0.125 MG DAILY AC 12/17 0700 AC 12/18 PO 0617 Lidocaine 1 PAT DAILY PRN 12/16 1815 AC EXT Metoprolol Tartrate 50 MG BID 12/16 2200 AC 12/18 PO 0927 Mirabegron 25 MG DAILY 12/16 1815 AC 12/18 PO 0927 Multivitamins 1 TAB DAILY 12/17 1000 AC 12/18 Therapeutic PO 0928 Nicotinic Acid 500 MG DAILY 12/17 1000 DC 12/17 PO 0954 Omeprazole 20 MG DAILY AC 12/17 0700 AC 12/18 PO 0617 Potassium Chloride 20 MEQ DAILY 12/17 1000 AC 12/18 PO 0926 Rivaroxaban 15 MG 1700 12/16 1815 AC 12/17 PO 1717 Tiotropium [place] 1 PUF DAILY 12/17 1000 AC 12/18 INH 0928 Tramadol HCl 50 MG BID PRN 12/16 2200 AC 12/17 PO 0447 Vitamin E 400 IU 1700 12/17 1700 AC 12/17 PO 1717 Vital Signs & I&O Last 24 Hrs of Vitals and I&O: Vital Signs Date Time Temp Pulse Resp B/P Pulse O2 O2 Flow FiO2 Ox Delivery Rate 12/18 0927 109 100/60 02/ 0850 97.6 109 18 100/60 100 Nasal 1.5L Cannula 12/18 0000 Nasal 2.0L Cannula 12/17 2359 97.9 102 18 108/60 96 Nasal 2.0L Cannula 12/17 2033 102 108/60 12/17 1657 96 Nasal 2.0L Cannula 12/17 1601 98.7 91 18 105/67 98 Nasal 2.0L Cannula 12/17 1600 95 Nasal 2.0L Cannula Intake & Output 12/18 1600 12/18 0800 12/18 0000 Intake Total 240 100 400 Output Total 200 250 450 Balance 40 -150 -50 Intake, IV 0 0 Intake, Oral 240 100 400 Number 1 0 1 Bowel Movements Output, Urine 200 250 450 Patient 136 lb 137 lb Weight Laboratory Tests 12/17 12/17 12/16 1040 0100 1900 Chemistry Sodium Cancelled Potassium Cancelled Chloride Cancelled Carbon Dioxide Cancelled Anion Gap Cancelled BUN Cancelled Creatinine Cancelled BUN/Creatinine Ratio Cancelled Troponin I Cancelled Cancelled Hematology CBC w Diff Cancelled WBC Cancelled RBC Cancelled Hgb Cancelled Hct Cancelled MCV Cancelled MCH Cancelled RDW Cancelled Plt Count Cancelled MPV Cancelled PUBS MCHC Cancelled 12/16 12/16 12/16 1837 1652 1435 Chemistry Lactic Acid (0.7 - 2.1 mmol/L) Cancelled 1.2 Coagulation PT (9.4 - 12.5 SEC) 12.1 INR (0.90 - 1.19) 1.15 APTT (25 - 37 SEC) 26 D-Dimer (70 - 232 ng/ml) 610 H Urines Urine Color (YEL,AMB,STR) YEL Urine Clarity (CLEAR) HAZY H Urine pH (5.0 - 8.0) 6.0 Ur Specific [place] (1.001 - 1.035) 1.010 Urine Protein (NEG,<30 MG/DL) TRACE H Urine Ketones (NEG) NEG Urine Nitrite (NEG) POS H Urine Bilirubin (NEG) NEG Urine Urobilinogen (0.1 - 1.0 EU/dl) 0.2 Ur Leukocyte Esterase (NEG) NEG Ur Microscopic SEDIMENT EXAMINED Urine WBC (0 - 2 /HPF) 1-3 H Ur Epithelial Cells (NONE,FEW) PACKD H Urine Mucus (FEW,NONE) FEW Urine Hemoglobin (NEG) NEG Urine Glucose (N MG/DL) NEG Microbiology Date/Time Procedure - Status Source Growth 12/18 1110 Clostridium difficile Toxin A & B - RECD STOOL 12/17 1624 Urine Culture - COLB URINE ROUT 12/17 1619 Clostridium difficile Toxin A & B - COLB STOOL 12/16 183 Urine Culture - COMP URINE ROUT 12/16 1745 Clostridium difficile Toxin A & B - CAN STOOL Cancelled: SPECIMEN NOT RECEIVED IN LABORATORY 12/16 1745 Stool Culture - CAN STOOL Cancelled: SPECIMEN NOT RECEIVED IN LABORATORY 12/16 1629 Blood Culture - CAN BLOOD Cancelled: SPECIMEN NOT RECEIVED IN LABORATORY 12/16 1629 Blood Culture - CAN BLOOD Cancelled: SPECIMEN NOT RECEIVED IN LABORATORY 12/16 1449 Respiratory Culture - CAN LOWER RESP Cancelled: SPECIMEN NOT RECEIVED IN LABORATORY 12/16 1449 Gram Stain - CAN LOWER RESP Cancelled: SPECIMEN NOT RECEIVED IN LABORATORY Impression/Plan Impression/Plan Impression/Plan: Physical Exam: General: WD/ WN female in NAD; alert and oriented x 3 Neck: no JVD, no carotid bruit Heart: irregularly irregular with 2/6 systolic murmur . Abdomen soft. Tenderness in the left sub-costal area Lungs: clear bilaterally Extremities: trace edema Significant data BUN/creatinine stable. Sodium 135, bicarbonate 33. LFTs were unremarkable troponin was normal white count 0.7, platelets adequate, hemoglobin 10.2 CT chest abdomen and pelvis done on 12/16/2016 IMPRESSION: 1. Cardiomegaly with enlargement of the left atrium and right ventricle with associated mitral valve calcifications suggest mitral valve stenosis. It has caused pulmonary edema and bilateral pleural effusions and engorgement of the IVC and hepatic veins and some degree of hepatic congestion. No ascites seen. 2. Irregular area of abnormal, (lower) renal cortical enhancement in the right kidney with adjacent fat stranding. Findings could be infectious, (representing pyelonephritis) or neoplastic in etiology. Considering patient's personal history of lymphoma, involvement of right kidney by lymphoma is possible. 3. Splenic lesions. Infectious or neoplastic etiologies such as involvement by lymphoma to be considered. 4. Diverticular disease of colon without evidence of acute diverticulitis. IMPRESSION This is a lady with NH large b cell lymphoma on chemo with sig mediastinal lymphadenopathy, bony mets worsening performance status withy reactive airway disease with mild asthma , chronic left lower and upper rib cage pain now has * Improving fatigue, inability to eat, at times dysphagia, probably related to her chemotherapy with profound neutropenia * Significant abnormality noted in the renal area in the right kidney with perinephric stranding, rule out pyelonephritis * Status post fall with pain in the abdominal area, now with pain in the lowerext in the knee area * Chronic chest pain in the left rib cage area with previous admission probably related to musculoskeletal pain versus bony metastasis which she has had before. * Bilateral pleural effusion, mitral stenosis with cardiomegaly, severe pulmonary hypertension * CT finding suggestive of pulmonary edema after fluid resuscitation * Atrial fibrillation with rapid ventricular response * Resolved Dehydration due to poor by mouth intake * Mild dysphagia in a patient with previous history of esophageal diverticulum * Lower ext edema no vte and pt has sig pulm htn due to diastolic heart with rt heart dysfunction * NH lymphoma with widespread lymphadenopathy and bony mets on chemo, now with neutropenia * Valvular heart disease * Hypothyroidism on supplementation * History of sleep apnea which is stable, now does not have cpap as she has lost wt, and her sleep apnea seems to have improved * B12 def RECOMMENDATION Xray of the limbs Rate control therapy. Abx per id nebs prn Culture if indicated We will follow closely. Prognosis guarded.
--- NOTE | 2016-12-18 13:23 | RADIOLOGY REPORT ---
EXAMINATION: XR CHEST CLINICAL INFORMATION: Followup pulmonary congestion. COMPARISON: Chest x-ray of 12/16/2016 and multiple prior chest x-rays dated back to 07/22/2014. CT chest of 12/16/2016. TECHNIQUE: 2 views of the chest were obtained. FINDINGS: The patient is rotated to the left. There is a persistent small left pleural effusion. Right pleural effusion seems to be improved; no significant right pleural effusion. There is interval decrease in the interstitial prominence. No evidence of overt pulmonary edema. The cardiomediastinal silhouette is unchanged with moderate cardiomegaly. Mild degenerative changes in the spine. IMPRESSION: 1. Stable cardiomegaly. 2. Mild interval improvement in the interstitial edema. 3. Persistent small left pleural effusion. 4. Improved right pleural effusion.
--- NOTE | 2016-12-18 13:24 | PN- Infect Dx ---
Subjective Subjective: Afebrile. She complains of right lateral thigh pain. She has no other specific complaints. No diarrhea reported overnight. Objective Last 24 Hrs of Vital Signs/I&O Vital Signs Date Time Temp Pulse Resp B/P Pulse O2 O2 Flow FiO2 Ox Delivery Rate 12/18 0927 109 100/60 12/18 0850 97.6 109 18 100/60 100 Nasal 1.5L Cannula 12/18 0000 Nasal 2.0L Cannula 12/17 2359 97.9 102 18 108/60 96 Nasal 2.0L Cannula 12/17 2033 102 108/60 12/17 1657 96 Nasal 2.0L Cannula 12/17 1601 98.7 91 18 105/67 98 Nasal 2.0L Cannula 12/17 1600 95 Nasal 2.0L Cannula Intake & Output 12/18 1600 12/18 0800 12/18 0000 Intake Total 240 100 400 Output Total 200 250 450 Balance 40 -150 -50 Intake, IV 0 0 Intake, Oral 240 100 400 Number 1 0 1 Bowel Movements Output, Urine 200 250 450 Patient 136 lb 137 lb Weight Physical Exam Other Physical Findings: She appears comfortable in no acute distress Chest Port-A-Cath in the right upper chest with no inflammation at the site Lungs crackles at the left base Heart irregular rhythm with no murmur Abdomen is soft, nontender with positive bowel sounds Extremities mild erythema over the lateral aspect of her right thigh, tender to palpation Results Last 24 Hours of Lab Results: No labs from today Last 24 Hours of Bill Results: Urine culture December 16 negative Stool C. difficile December 18 pending Recent Imaging Studies: X-ray of the right hip and right femur negative Assessment/Plan Impression: Stable with temperatures remaining normal off antibiotics. Her last white blood cell count was only 700, with 100 neutrophils, presumably secondary to her recent chemotherapy, and she will need a repeat CBC. Her right thigh pain and inflammation is likely secondary to her recent trauma. Her recent diarrhea could be secondary to her chemotherapy or C. difficile, and can await the results of the toxin test. Suggestion: 1. Repeat CBC today 2. Follow-up stool for C. difficile 3. Continue to follow off antibiotics
[2016-12-18 16:09] LABS: ABSOLUTE BASOPHIL COUNT 0 /CUMM (0.0-0.2); ABSOLUTE EOSINOPHIL COUNT 0.2 /CUMM (0.0-0.7); ABSOLUTE GRANULOCYTE CT 0.1 /CUMM (1.4-6.5); ABSOLUTE LYMPH COUNT 0.2 /CUMM (1.2-3.4); ABSOLUTE MONOCYTE COUNT 0.6 /CUMM (0.10-0.60); BASOPHIL % 0.1 % (0.0-2.0); GRANULOCYTE % 6.2 % (42.2-75.2); HEMATOCRIT 30.8 % (37-47); MEAN CORPUSCULAR HGB 29.1 PG (27.0-31.0); MEAN CORPUSCULAR HGB CONC 33.6 G/DL (33.0-37.0); MEAN CORPUSCULAR VOLUME 86.5 FL (81.0-99.0); MEAN PLATELET VOLUME 9.3 FL (7.4-10.4); PLATELET COUNT 140 /CUMM (130-400); RBC DISTRIBUTION WIDTH 14.9 % (11.5-14.5); RED BLOOD CELL CT 3.57 /CUMM (4.20-5.40)
[2016-12-18 16:11] LABS: EOSINOPHIL % 16.2 % (0-5)
[2016-12-18 16:14] VITALS: BP 102/58
--- NOTE | 2016-12-18 16:36 | PN- Housestaff ---
See Addendum Subjective Follow-up For: Neutropenia with fever Pulmonary edema, probably secondary to CHF Complaints: pain in the right thigh, and both knees Tele-Events Since Last Visit: Atrial fibrillation, no any overnight events Subjective: This is seen and examined at the bedside. She was complaining of pain in the right thigh05/21, she was very talkative and according to her steroid is making her crazy Review of Systems Constitutional: Reports: malaise, weakness. EENTM: Denies: no symptoms. Cardiovascular: Denies: chest pain, edema, orthopena, palpitations. Respiratory: Denies: cough, hemoptysis, orthopnea, short of breath. Gastrointestinal: Reports: abdominal pain, diarrhea, nausea. Denies: bloating, constipation, distention, bowel incontinence, melena. Genitourinary: Denies: no symptoms. Musculoskeletal: Reports: joint pain, joint swelling. Skin: Reports: erythema. Neurological/Psychological: Reports: anxiety. Objective Last 24 Hrs of Vital Signs/I&O Vital Signs Date Time Temp Pulse Resp B/P Pulse O2 O2 Flow FiO2 Ox Delivery Rate 12/18 1614 99.1 75 18 102/58 98 12/18 1358 94 Room Air Room Air 12/18 1355 95 Room Air Room Air 12/18 0927 109 100/60 02 0850 97.6 109 18 100/60 100 Nasal 1.5L Cannula 12/18 0000 Nasal 2.0L Cannula 12/17 2359 97.9 102 18 108/60 96 Nasal 2.0L Cannula 12/17 2033 102 108/60 / 1657 96 Nasal 2.0L Cannula Intake & Output 12/18 1600 12/18 0800 12/18 0000 Intake Total 680 100 400 Output Total 400 250 450 Balance 280 -150 -50 Intake, IV 0 0 Intake, Oral 680 100 400 Number 1 0 1 Bowel Movements Output, Urine 400 250 450 Patient 61.915 kg 61.915 kg Weight Physical Exam General Appearance: Alert, Oriented X3, Cooperative, Mild Distress Skin: redness in the right thigh secondary to hematoma, very tender to touch HEENT: Atraumatic, PERRLA, EOMI Neck: Supple, No JVD Cardiovascular: Normal S1, Normal S2, regular, murmur Lungs: mild basilar Crackles Abdomen: Soft, No Tenderness Neurological: Normal Gait, Normal Speech Extremities: No Clubbing, No Cyanosis, No Edema, bilateral knee swelling, more on the left side than the right, abrasion of the skin on the right knee Vascular: Normal Pulses, Pulses Symmetrical Assessment/Plan Assessment: Patient is an 86-year-old female with past medical history of syncope, submandibular masses, atrial fibrillation, CHF, COPD, GERD, diverticulosis, nephrolithiasis, osteoarthritis,hypothyroidism, pernicious anemia, Vit B12 deficiency, non-Hodgkin's lymphoma (injectable chemotherapy was given on 2015 and 2 weeks ago) presented with chief complaints of fall at 7 a.m. Problem list - syncope, submandibular masses, atrial fibrillation, CHF, COPD, GERD, diverticulosis, nephrolithiasis, osteoarthritis, hypothyroidism, pernicious anemia, Vit B12 deficiency, non-Hodgkin's lymphoma (inj chemotherapy was given on 08/10/2016 and 2 weeks ago) Plan - * Dr. Laws wanted to discuss CT chest in the October, to the current CT. We discussed with Dr. Quiñonez and according to him, there is a 9 centimeter nodule in the right hemidiaphragm which is the same as before. He cannot comment on the spleen as this is only a CT chest. * We started patient on inje Neupogen 300mcg s/c daily. * He wanted to have CBC before Neupogen, we did later which showed WBC -1.0, for giving the next dose, Please discuss with Dr. Laws, if he if she really needed. * We will do WBC daily till it show rising trend. * According to Dr. Box patient does not need antibiotic. * We will follow stool for C. difficile and CBC tomorrow. * According to Dr. Chavarria we ordered x-ray of both knees to rule out any trauma. * According to Dr. Glynn, we ordered chest x-ray to see the status of pulmonary edema, which shows edema but milder and less than before. The DC to telemetry and transfer patient to general medicine floor. * We will continue Xeralto, if the size of hematoma will increase than we will discussed about stopping the Xarelto. * We will give PO Lasix 40 mg OD * Strict intake output charting * Daily weight * Keep head end of the bed elevated * We will follow Blood culture * Diet - High protein diet * DVT prophylaxis - ALPS/ Xeralto * Code Status - DNR/DNI Problem List: 1. ATRIAL FIBRILATION 2. Non Hodgkin's lymphoma 3. Pancytopenia due to antineoplastic chemotherapy 4. Hyperlipidemia 5. Hypertension 6. HYPOTHYROIDISM 7. Diastolic heart failure Pain Ratin Pain Location: Both knees, right hip Pain Goal: Remain pain free Pain Plan: tylenol, if needed than percocet Tomorrow's Labs & Rationales: cbc, DVT/Prophylaxis: mechanical, pharmacological
--- NOTE | 2016-12-18 21:00 | RADIOLOGY REPORT ---
EXAMINATION: XR KNEE, RIGHT CLINICAL INFORMATION: Pain in right knee. COMPARISON: None TECHNIQUE: 2 views. of the right knee. FINDINGS: Chondrocalcinosis of the medial and lateral meniscus. Mild joint narrowing of the medial femoral and lateral femoral tibial joint. No erosion. No significant spur. No focal bone lesion or periosteal reaction. No joint effusion. IMPRESSION: Mild degenerative change of the femoral tibial joint with chondrocalcinosis.
--- NOTE | 2016-12-18 21:06 | RADIOLOGY REPORT ---
EXAMINATION: XR KNEE, LEFT CLINICAL INFORMATION: Pain in knee. Edema. COMPARISON: None TECHNIQUE: 2 views of the left knee. FINDINGS: There is calcification of the medial and lateral meniscus, chondrocalcinosis. There is mild joint narrowing of the medial femoral tibial joint involving both compartments. No bone erosion or significant spur. Probable small joint effusion present. IMPRESSION: Chondrocalcinosis. Joint narrowing of the femoral tibial joint. Probable small joint effusion.
[2016-12-19 00:04] VITALS: BP 110/60
--- NOTE | 2016-12-19 06:52 | PN- Hematology ---
Subjective Subjective: Feeling generally improved, persistent knee pain Review of Systems: 12 point review of systems otherwise unchanged Objective Vital Signs and I&Os Vital Signs Date Time Temp Pulse Resp B/P Pulse O2 O2 Flow FiO2 Ox Delivery Rate 12/19 0004 99.7 91 20 110/60 99 Nasal 2.0L Cannula 12/19 0000 94 Room Air 12/18 2231 103 114/60 12/18 1729 97 Room Air Room Air 12/18 1614 99.1 75 18 102/58 98 12/18 1600 95 Room Air 12/18 1358 94 Room Air Room Air 12/18 1355 95 Room Air Room Air 12/18 0927 109 100/60 12/18 0850 97.6 109 18 100/60 100 Nasal 1.5L Cannula Intake & Output 12/19 0800 12/19 0000 12/18 1600 12/18 0800 12/18 0000 12/17 1600 Intake Total 410 680 100 400 240 Output Total 350 400 250 450 Balance 60 280 -150 -50 240 Intake, IV 10 0 0 Intake, Oral 400 680 100 400 240 Number 0 1 0 1 Bowel Movements Output, Urine 350 400 250 450 Patient 137 lb 136 lb 137 lb Weight Gen.: in NAD ENT: Sclera anicteric Chest: Normal respiratory effort, decreased breath sounds Cor: RRR, no extra sounds Abdomen: Soft, bowel sounds present, no tenderness, no rebound Extremities: Without clubbing, cyanosis, or asymmetric edema Neurology: Alert and oriented 3, no gross deficit Current Medications: Current Medications Sig/Timi Start time Last Medication Dose Route Stop Time Status Admin Albuterol Sulfate 3 ML Q4P PRN 12/17 1215 AC INH Ascorbic Acid 500 MG TID 12/16 1809 AC 12/18 PO 2231 Calcium/Vitamin D 500 MG DAILY 12/17 1000 AC 12/18 PO 0929 Filgrastim 300 MCG DAILY 12/18 1000 AC 12/18 SC 1038 Folic Acid 1 MG DAILY 12/17 1000 AC 12/18 PO 0925 Furosemide 40 MG DAILY 12/18 1009 AC PO Furosemide 40 MG DAILY 12/17 1000 DC 12/18 IV 0926 Levothyroxine Sodium 0.125 MG DAILY AC 12/17 0700 AC 12/19 PO 0617 Lidocaine 1 PAT DAILY PRN 12/16 181 AC EXT Metoprolol Tartrate 50 MG BID 12/16 2200 AC 12/18 PO 223 Mirabegron 25 MG DAILY 12/16 181 AC 12/18 PO 0927 Multivitamins 1 TAB DAILY 12/17 1000 AC 12/18 Therapeutic PO 0928 Omeprazole 20 MG DAILY AC 12/17 0700 AC 12/19 PO 0617 Potassium Chloride 20 MEQ DAILY 12/17 1000 AC 12/18 PO 0926 Rivaroxaban 15 MG 1700 12/16 1815 AC 12/18 PO 1626 Tiotropium [place] 1 PUF DAILY 12/17 1000 AC 12/18 INH 0928 Tramadol HCl 50 MG BID PRN 12/16 2200 AC 12/18 PO 2232 Vitamin E 400 IU 1700 12/17 1700 AC 12/18 PO 1626 Results Last 24 Hours of Lab Results: Laboratory Tests 12/19 12/18 0640 1550 Hematology CBC w Diff Pending NO MAN DIFF REQ WBC (4.8 - 10.8 /CUMM) Pending 1.0 *L RBC (4.20 - 5.40 /CUMM) Pending 3.57 L Hgb (12.0 - 16.0 G/DL) Pending 10.4 L Hct (37 - 47 %) Pending 30.8 L MCV (81.0 - 99.0 FL) Pending 86.5 MCH (27.0 - 31.0 PG) Pending 29.1 RDW (11.5 - 14.5 %) Pending 14.9 H Plt Count (130 - 400 /CUMM) Pending 140 MPV (7.4 - 10.4 FL) Pending 9.3 Gran % (42.2 - 75.2 %) 6.2 L Lymphocytes % (20.5 - 51.1 %) 16.2 L Monocytes % (1.7 - 9.3 %) 61.3 H Eosinophils % (0 - 5 %) 16.2 H Basophils % (0.0 - 2.0 %) 0.1 Absolute Granulocytes (1.4 - 6.5 /CUMM) 0.1 L Absolute Lymphocytes (1.2 - 3.4 /CUMM) 0.2 L Absolute Monocytes (0.10 - 0.60 /CUMM) 0.6 Absolute Eosinophils (0.0 - 0.7 /CUMM) 0.2 Absolute Basophils (0.0 - 0.2 /CUMM) 0 PUBS MCHC (33.0 - 37.0 G/DL) Pending 33.6 Assessment/Plan Assessment/Recommendations: 1. Fever/neutropenia-patient has not had a fever while in the hospital, her white blood count yesterday reyes minimally; patient remains off antibiotics Recommend- Continue Neupogen Follow CBC 2. Non-Hodgkin's lymphoma Overall patient appears improved. From my perspective, patient stable to discharge. Follow-up my office
[2016-12-19 07:55] LABS: ABSOLUTE BASOPHIL COUNT 0 /CUMM (0.0-0.2); ABSOLUTE EOSINOPHIL COUNT 0.2 /CUMM (0.0-0.7); ABSOLUTE GRANULOCYTE CT 0.5 /CUMM (1.4-6.5); ABSOLUTE LYMPH COUNT 0.2 /CUMM (1.2-3.4); ABSOLUTE MONOCYTE COUNT 0.8 /CUMM (0.10-0.60); BASOPHIL % 0.2 % (0.0-2.0); HEMATOCRIT 28.7 % (37-47); MEAN CORPUSCULAR HGB CONC 33.4 G/DL (33.0-37.0); MEAN CORPUSCULAR VOLUME 86.7 FL (81.0-99.0); MEAN PLATELET VOLUME 9.1 FL (7.4-10.4); PLATELET COUNT 152 /CUMM (130-400); RBC DISTRIBUTION WIDTH 15.1 % (11.5-14.5); RED BLOOD CELL CT 3.31 /CUMM (4.20-5.40)
[2016-12-19 08:00] VITALS: BP 112/60
--- NOTE | 2016-12-19 08:12 | PN- Housestaff ---
See Addendum Subjective Follow-up For: Neutropenia CHF Complaints: pain in abdomen, pain in right thigh at the site of hematoma Subjective: Patient is seen and examined at the bedside. She was complaining of pain in abdomen. On further asking, she said that this pain is always been there, and she was diagnosed as IBS. On palpation, the abdomen was tender. Is also having the hematoma on the right thigh which was improved. Review of Systems Constitutional: Reports: weakness. Denies: chills, diaphoresis, fever. EENTM: Denies: no symptoms. Cardiovascular: Denies: chest pain, edema, orthopena, palpitations, peripheral edema. Respiratory: Denies: cough, hemoptysis, orthopnea, short of breath, sputum production. Gastrointestinal: Reports: abdominal pain, nausea. Denies: bloating, constipation, diarrhea, distention, bowel incontinence, melena, bloody stool. Genitourinary: Denies: no symptoms. Musculoskeletal: Reports: back pain, joint pain, joint swelling. Skin: Reports: erythema. Neurological/Psychological: Reports: anxiety, depressed. Objective Last 24 Hrs of Vital Signs/I&O Vital Signs Date Time Temp Pulse Resp B/P Pulse O2 O2 Flow FiO2 Ox Delivery Rate 12/19 0915 91.0 110/60 12/19 0800 98.9 80 20 112/60 98 Nasal Cannula 12/19 0004 99.7 91 20 110/60 99 Nasal 2.0L Cannula 12/19 0000 94 Room Air 12/18 2231 103 114/60 12/18 1729 97 Room Air Room Air 12/18 1614 99.1 75 18 102/58 98 12/18 1600 95 Room Air 12/18 1358 94 Room Air Room Air 12/18 1355 95 Room Air Room Air Intake & Output 12/19 1600 12/19 0800 12/19 0000 Intake Total 120 240 410 Output Total 350 Balance 120 240 60 Intake, IV 10 Intake, Oral 120 240 400 Number 0 Bowel Movements Output, Urine 350 Patient 62.142 kg Weight Physical Exam General Appearance: Alert, Oriented X3, Cooperative, No Acute Distress Skin: edema on the right side of the thigh HEENT: Atraumatic, PERRLA, EOMI Neck: Supple, No JVD Cardiovascular: Normal S1, Normal S2, irregular with murmur Lungs: mild basilar crepts Abdomen: Soft, mild tenderness Neurological: Normal Speech Extremities: No Clubbing, No Cyanosis, No Edema Vascular: Normal Pulses Assessment/Plan Assessment: Patient is an 86-year-old female with past medical history of syncope, submandibular masses, atrial fibrillation, CHF, COPD, GERD, diverticulosis, nephrolithiasis, osteoarthritis,hypothyroidism, pernicious anemia, Vit B12 deficiency, non-Hodgkin's lymphoma (injectable chemotherapy was given on 2015 and 2 weeks ago) presented with chief complaints of fall at 7 a.m. Problem list - syncope, submandibular masses, atrial fibrillation, CHF, COPD, GERD, diverticulosis, nephrolithiasis, osteoarthritis, hypothyroidism, pernicious anemia, Vit B12 deficiency, non-Hodgkin's lymphoma (inj chemotherapy was given on 08/10/2016 and 2 weeks ago) Plan - * Discussed with Dr. Laws as a CBC showing rising trend, patient doesn't need Neupogen right now. He will see the patient as an outpatient, and decided for it. * We will do WBC daily till it show rising trend. We also advised to the patient to have repeat CBC on 12/25/2016, prescription is given to the patient. * According to Dr. Box patient does not need antibiotic. * CBC showed WBC of 1.7 and granulocyte of 26.6% * We will follow stool for C. difficile * We will continue Xeralto, the size of hematoma is same. * We will continue PO Lasix 40 mg OD * Strict intake output charting * Daily weight * Keep head end of the bed elevated * We will follow Blood culture * Diet - High protein diet * DVT prophylaxis - ALPS/ Xeralto * Code Status - DNR/DNI Problem List: 1. Neutropenia 2. Rapid atrial fibrillation 3. Weakness 4. Non Hodgkin's lymphoma Pain Ratin Pain Location: Abdomen, both knees Pain Goal: Remain pain free Pain Plan: [id number] Tomorrow's Labs & Rationales: none DVT/Prophylaxis: mechanical, pharmacological
[2016-12-19 08:19] LABS: GRANULOCYTE % 26.6 % (42.2-75.2); WHITE BLOOD CELL COUNT 1.7 /CUMM (4.8-10.8)
[2016-12-19 09:15] VITALS: BP 110/60
--- NOTE | 2016-12-19 09:21 | Patient Discharge Instructions ---
Discharge Instructions General Discharge Information You were seen/treated for: Neutropenia/low blood count, probably secondary to chemotherapy Pulmonary edema, probably secondary to CHF Special Instructions: Please follow-up with Dr. Laws within a week of discharge, please call his office for an appointment. Please follow-up with your PCP within a week of discharge. Please take all precautions for neutropenia. Please take the medication as advised Diet Continue normal diet: No Recommended Diet: Heart Healthy Activity Full Activity/No Limits: No (as tolerated) Acute Coronary Syndrome Inclusion Criteria At DC or during hospital stay patient has or had the following: ACS DIAGNOSIS No Discharge Core Measures Meds if any: Prescribed or Continued at Discharge Meds if any: NOT Prescribed or Continued at Discharge Congestive Heart Failure Inclusion Criteria At DC or during hospital stay patient has or had the following: CHF DIAGNOSIS Yes Discharge Core Measures Meds if any: Prescribed or Continued at Discharge Meds if any: NOT Prescribed or Continued at Discharge Cerebrovascular accident Inclusion Criteria At DC or during hospital stay patient has or had the following: CVA/TIA Diagnosis No Discharge Core Measures Meds if any: Prescribed or Continued at Discharge Meds if any: NOT Prescribed or Continued at Discharge Venous thromboembolism Inclusion Criteria VTE Diagnosis No VTE Type NONE VTE Confirmed by (Test) NONE Discharge Core Measures - Per Current guidelines, there needs to be overlap - treatment for the first 5 days of Warfarin therapy. - If discharged on Warfarin prior to 5 days of - overlap therapy, the patient will need to be - assessed for post discharge needs including - *Post discharge parental anticoagulation - *Warfarin and/or parental anticoagulation education - *Follow up date to check INR post discharge At least 5 days overlap therapy as Inpatient No Meds if any: Prescribed or Continued at Discharge Warfarin No Note: Overlap Therapy is Warfarin and Anticoagulant Meds if any: NOT Prescribed or Continued at Discharge No Warfarin d/t Medical Contraindication No Overlap Therapy d/t Medical Contraindication
--- NOTE | 2016-12-19 12:31 | PN- Pulmonary ---
Subjective HPI/Critical Care Issues: DOing well afebrile no cough or sputum Still has pain Objective Current Medications: Current Medications Sig/Timi Start time Last Medication Dose Route Stop Time Status Admin Albuterol Sulfate 3 ML Q4P PRN 12/17 1215 AC INH Ascorbic Acid 500 MG TID 12/16 1809 AC 12/19 PO 0916 Calcium/Vitamin D 500 MG DAILY / 1000 AC 12/19 PO 0915 Filgrastim 300 MCG DAILY 12/18 1000 DC 12/18 SC 1038 Folic Acid 1 MG DAILY 12/17 1000 AC 12/19 PO 0916 Furosemide 40 MG DAILY 12/18 1009 AC 12/19 PO 0916 Heparin Sodium 100 UNIT ONCE ONE 12/19 699 DC (Porcine) IV 12/19 07 Levothyroxine Sodium 0.125 MG DAILY AC 12/17 0700 AC 12/19 PO 0617 Lidocaine 1 PAT DAILY PRN 12/16 1815 AC EXT Metoprolol Tartrate 50 MG BID 12/16 2200 AC 12/19 PO 0915 Mirabegron 25 MG DAILY 12/16 1815 AC 12/19 PO 0916 Multivitamins 1 TAB DAILY 12/17 1000 AC 12/19 Therapeutic PO 0916 Omeprazole 20 MG DAILY AC 12/17 0700 AC 12/19 PO 0617 Potassium Chloride 20 MEQ DAILY 12/17 1000 AC 12/19 PO 0916 Rivaroxaban 15 MG 1700 12/16 1815 AC 12/18 PO 1626 Tiotropium [place] 1 PUF DAILY / 1000 AC 12/19 INH 0916 Tramadol HCl 50 MG BID PRN 12/16 2200 AC 12/19 PO 0915 Vitamin E 400 IU 1700 12/17 1700 AC 12/18 PO 1626 Vital Signs & I&O Last 24 Hrs of Vitals and I&O: Vital Signs Date Time Temp Pulse Resp B/P Pulse O2 O2 Flow FiO2 Ox Delivery Rate 12/19 1158 98.1 12/19 0915 91.0 110/60 12/19 0800 98.9 80 20 112/60 98 Nasal Cannula 12/19 0004 99.7 91 20 110/60 99 Nasal 2.0L Cannula 12/19 0000 94 Room Air 12/18 2231 103 114/60 12/18 1729 97 Room Air Room Air 12/18 1614 99.1 75 18 102/58 98 / 1600 95 Room Air 12/18 1358 94 Room Air Room Air 12/18 1355 95 Room Air Room Air Intake & Output 12/19 1600 12/19 0800 12/19 0000 Intake Total 120 240 410 Output Total 350 Balance 120 240 60 Intake, IV 10 Intake, Oral 120 240 400 Number 0 Bowel Movements Output, Urine 350 Patient 137 lb Weight Impression/Plan Impression/Plan Impression/Plan: Physical Exam: General: WD/ WN female in NAD; alert and oriented x 3 Neck: no JVD, no carotid bruit Heart: irregularly irregular with 2/6 systolic murmur . Abdomen soft. Tenderness in the left sub-costal area Lungs: clear bilaterally Extremities: trace edema Significant data BUN/creatinine stable. Sodium 135, bicarbonate 33. LFTs were unremarkable troponin was normal white count 0.7, platelets adequate, hemoglobin 10.2 CT chest abdomen and pelvis done on 12/16/2016 IMPRESSION: 1. Cardiomegaly with enlargement of the left atrium and right ventricle with associated mitral valve calcifications suggest mitral valve stenosis. It has caused pulmonary edema and bilateral pleural effusions and engorgement of the IVC and hepatic veins and some degree of hepatic congestion. No ascites seen. 2. Irregular area of abnormal, (lower) renal cortical enhancement in the right kidney with adjacent fat stranding. Findings could be infectious, (representing pyelonephritis) or neoplastic in etiology. Considering patient's personal history of lymphoma, involvement of right kidney by lymphoma is possible. 3. Splenic lesions. Infectious or neoplastic etiologies such as involvement by lymphoma to be considered. 4. Diverticular disease of colon without evidence of acute diverticulitis. 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 Hematoma of the thingh * Bilateral pleural effusion, mitral stenosis with cardiomegaly, severe pulmonary hypertension * Atrial fibrillation with rapid ventricular response better * Mild dysphagia in a patient with previous history of esophageal diverticulum * NH lymphoma with widespread lymphadenopathy and bony mets on chemo, now with neutropenia * Valvular heart disease * Hypothyroidism on supplementation * History of sleep apnea which is stable, now does not have cpap as she has lost wt, and her sleep apnea seems to have improved * B12 def RECOMMENDATION Rate control therapy. Abx per id nebs prn po lasix ok to dc Will follow prn.
[2016-12-19] MEDS ORDERED: PROTONIX40 M3 PO (13:13)
--- NOTE | 2016-12-19 14:03 | Discharge Summary ---
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 Vital signs at the time of admission -pulse 133, respiratory rate 16, blood pressure 111/73, SPO2-100% with 2 liters of nasal cannula Neutropenia - On further evaluation, we found that the patient is having WBC 0.7, hemoglobin 10.2. We took all the cultures including blood and the urine. Initially we started patient on broad-spectrum antibiotic, but as her culture comes back negative,we stopped them. We also discussed with Dr. Laws and gave the patient a dose of Neupogen ( 12/18/2016) and repeated the CBC daily.As WBC started showing rising trend, we discharged her. The patient was advised to follow-up with Dr. Laws as an outpatient within a week of discharge. WBC count at the time of discharge was 1.7, granulocyte of 26.6 percent. Acute on Chronic CHF - Although patient was not short of breath at the time of admission and her SPO2 was 100% on [address] scan of the chest showed evidence of pulmonary edema and bilateral pleural effusion, probably secondary to mitral valve stenosis.We admitted the patient in the telemetry.We gave her IV Lasix followed by PO, and kept her on Telemetry Monitoring. We repeated the chest x- ray on 12/18/16 showed mild interval improvement in interstitial edema with persistent small left pleural effusion. So we DC'd the telemetry monitoring and discharged her with PO Lasix. Hematoma of right thigh We gave symptomatic treatment. It stays the same in size during the hospital course. Pseudogout/chondrocalcinosis She was continuously complaining of pain in her both knees, so we did x-rays of both knees which showed mild degenerative change in the femoral tibial joint with chondrocalcinosis. We advised to follow-up with her PCP for further management. Anaplasmosis under evaluation After the discharge we found that the peripheral blood film were showing rare cytoplasmic structures somewhat suggesting of possible Anaplasma. We sent PCR for Anaplasma. We advised patient to follow-up with her PCP for further management. Allergies: Coded Allergies: Penicillins (RASH 12/16/16) acetaminophen (BURNING FEELING IN STOMACH 12/16/16) garlic (NAUSEA 12/16/16) latex (SORES 12/16/16) mold (UNKNOWN 12/16/16) onion (NAUSEA 12/16/16) Sulfa (Sulfonamide Antibiotics) (GI 12/16/16) aspirin (MILD GI 12/16/16) diazepam (GI 12/16/16) oxycodone (GI, MIGRAINE 12/16/16) propoxyphene (GI 12/16/16) Uncoded Allergies: COLOGNE (PER PT UPSETS HER WITH THE SMELL 10/17/16) HAIR SPRAY (PER PT UPSETS HER WITH THE SMELL 10/17/16) SMOKE (PER PT CANT STAND SMELLS IT UPSETS HER 10/17/16) Disposition Summary Disposition Principal Diagnosis: Neutropenia Pulmonary edema secondary to CHF Additional Diagnosis: atrial fibrillation, CHF, COPD, GERD, diverticulosis, nephrolithiasis, osteoarthritis, hypothyroidism, pernicious anemia, Vit B12 deficiency, non-Hodgkin's lymphoma (injectable chemotherapy was given on 08/10/2016 and 2 weeks ago) Discharge Disposition: home health services Discharge Instructions General Discharge Information Code Status: Do Not Resucitate/Intubat Patient's Diet: Heart healthy diet Patient's Activity: As tolerated Follow-Up Instructions/Appts: Please follow-up with Dr. Laws within a week of discharge, please call his office for an appointment. Please follow-up with your PCP within a week of discharge. Please take all precautions for neutropenia. Please take the medication as advised Medications at Discharge Discharge Medications: Continue taking these medications: Levothyroxine Sodium (Synthroid) 0.125 MG TAB 1 Tablet ORAL DAILY BEFORE BREAKFAST Comments: Last Taken:01/18/16 Time:0700 Metoprolol Tartrate (Lopressor) 25 MG TABLET 2 Tablet ORAL TWICE DAILY Instructions: Reason to Stop at ADM: gi bleed and possibility of hypotension Comments: Last Taken:01/18/16 Time:1000 Multivitamin (Multiple Vitamins) 1 EACH TABLET 1 Tablet ORAL DAILY Comments: PER PT NOT GIVEN IN HOSPITAL Calcium Carbonate/Vitamin D3 (Calcium 600 + Vit D Tablet) 1 EACH TABLET 1 Tablet ORAL DAILY Comments: Last Taken: 12/19/16 Time: 0915 AM Folic Acid (Folic Acid) 0.8 MG TABLET 1 Tablet ORAL TWICE DAILY Comments: Last Taken: 12/19/16 Time: 0916 AM Magnesium Oxide (Magnesium Oxide) 400 MG TABLET 1 Tablet ORAL DAILY Comments: NOT GIVEN IN HOSPITAL Furosemide (Lasix) 80 MG TABLET 1 Tablet ORAL DAILY Potassium Chloride (Potassium Chloride) 20 MEQ TABLET.ER 1 Tablet ORAL Every Morning Comments: DOCUMENTED PER CMR DURING PRE-SX INTERVIEW Last Taken:12/19/16 Time: 0916 AM Cyanocobalamin (Vitamin B-12) (Cyanocobalamin Injection) 1,000 MCG/1 ML VIAL 1 Milliliters INTRAMUSC ONCE A MONTH Qty = 1 Comments: NOT GIVEN IN HOSPITAL Mirabegron (Myrbetriq) 25 MG TAB.ER.24H 1 Tablet ORAL DAILY Qty = 30 Comments: Last Taken:08/18/16 Time:9 AM Ascorbic Acid (Vitamin C) 500 MG TABLET 1 Tablet ORAL THREE TIMES DAILY Comments: Last Taken: 12/19/16 Time: 0916 AM Lactose-Reduced Food (Ensure Liquid) 237 ML LIQUID 237 Milliliters ORAL THREE TIMES DAILY as needed for NUTRITIONAL SUPPLEMENT Qty = 49850 Comments: NOT GIVEN AT HOSPITAL Calcium Citrate/Vitamin D3 (Citracal + D Maximum Caplet) 315 MG-250 UNIT TABLET 1 Tablet ORAL TWICE DAILY Instructions: NOT GIVEN AT HOSPITAL Glucosam Sul Na/Chondr Shepard A Na (Glucosamine-Chondroitin Tablet) 750 MG-600 MG TABLET 1 Tablet ORAL TWICE DAILY Comments: NOT GIVEN AT HOSPITAL Biotin (Biotin) 5 MG CAPSULE 1 Tablet ORAL DAILY Comments: Last Taken: NOT GIVEN AT HOSPITAL Time: Lidocaine (Lidocaine) 5 % ADH..PATCH 1 Patch On the skin DAILY as needed for PAIN Comments: Last Taken: NOT GIVEN AT HOSPITAL Time: Flaxseed Oil (Flax Oil) 1,000 MG CAPSULE 1 Capsule ORAL DAILY Comments: NOT GIVEN AT HOSPITAL [PRIMROSE OIL] 1,000 Milligram ORAL DAILY Comments: NOT GIVEN AT HOSPITAL Cholecalciferol (Vitamin D3) (Vitamin D3) 5,000 UNIT TABLET 1 Tablet ORAL DAILY Comments: NOT GIVEN AT HOSPITAL Vitamin E Mixed (Vitamin E) 1,000 UNIT CAPSULE 1 Capsule ORAL DAILY Comments: Last Taken: 12/18/16 Time: 4 PM Niacinamide (Niacin) 500 MG TABLET 1 Tablet ORAL DAILY Comments: NOT GIVEN AT HOSPITAL Rivaroxaban (Xarelto) 15 MG TABLET 1 Tablet ORAL 5 PM Qty = 90 Comments: Last Taken: 12/18/16 Time: 4:26 PM Pantoprazole Sodium (Pantoprazole Sodium) 40 MG TABLET.DR 1 Tablet ORAL DAILY Qty = 60 Comments: OMEPREZOLE 20 MG GIVEN LAST TAKEN: 12/19/16 TIME: 0617 AM Tiotropium [place] (Spiriva) 18 MCG CAP.W.DEV 1 Capsule Inhale through mouth DAILY Comments: Last Taken: 12/19/16 Time: 0916 AM Tramadol HCl (Tramadol HCl) 50 MG TABLET 1 Tablet ORAL 2 x Daily as needed as needed for PAIN Comments: Last Taken: 12/19/16 Time: 0915 AM Estradiol (Climara) 0.0375 MG/24 HOUR PATCH.TDWK 1 PATCH On the skin Comments: NOT GIVEN AT HOSPITAL Copies To: WILLIAM MAYBERRY,WILDA LAY MD,KITTY Winslow Attending MD Review Statement Documenting Attending: ALFA KOWALSKI MD Other Findings: Patient treated for neutropenia secondary to chemotherapy and acute on chronic CHF with IV diuresis. Improved after treatment and discharged home with outpatient follow up.
--- NOTE | 2016-12-19 16:35 | PN- Infect Dx ---
Subjective Subjective: Afebrile. She complains of abdominal discomfort and headache. Objective Last 24 Hrs of Vital Signs/I&O Vital Signs Date Time Temp Pulse Resp B/P Pulse O2 O2 Flow FiO2 Ox Delivery Rate 12/19 1344 95 Room Air Room Air 12/19 1158 98.1 12/19 0915 91.0 110/60 12/19 0800 98.9 80 20 112/60 98 Nasal Cannula 12/19 0004 99.7 91 20 110/60 99 Nasal 2.0L Cannula 12/19 0000 94 Room Air 12/18 2231 103 114/60 12/18 1729 97 Room Air Room Air Intake & Output 12/19 1600 12/19 0800 12/19 0000 Intake Total 320 240 410 Output Total 350 Balance 320 240 60 Intake, IV 10 Intake, Oral 320 240 400 Number 0 Bowel Movements Output, Urine 350 Patient 137 lb Weight Physical Exam Other Physical Findings: She appears comfortable in no acute distress Lungs crackles at the left base Heart regular rhythm with no murmur Abdomen is soft, mildly tender on palpation in the periumbilical area, with no guarding or rebound, positive bowel sounds Extremities resolution of the erythema and edema over her right lateral thigh Results Last 24 Hours of Lab Results: Laboratory Tests 12/19 0640 Hematology CBC w Diff MAN DIFF ORDERED WBC (4.8 - 10.8 /CUMM) 1.7 L RBC (4.20 - 5.40 /CUMM) 3.31 L Hgb (12.0 - 16.0 G/DL) 9.6 L Hct (37 - 47 %) 28.7 L MCV (81.0 - 99.0 FL) 86.7 MCH (27.0 - 31.0 PG) 29.0 RDW (11.5 - 14.5 %) 15.1 H Plt Count (130 - 400 /CUMM) 152 MPV (7.4 - 10.4 FL) 9.1 Gran % (42.2 - 75.2 %) 26.6 L Lymphocytes % (20.5 - 51.1 %) 13.2 L Monocytes % (1.7 - 9.3 %) 50.0 H Eosinophils % (0 - 5 %) 10.0 H Basophils % (0.0 - 2.0 %) 0.2 Absolute Granulocytes (1.4 - 6.5 /CUMM) 0.5 L Segmented Neutrophils (42.2 - 75.2 %) 27 L Band Neutrophils (0.0 - 5.0 %) 3 Absolute Lymphocytes (1.2 - 3.4 /CUMM) 0.2 L Lymphocytes (20.5 - 51.1 %) 19 L Monocytes (1.7 - 9.3 %) 49 H Absolute Monocytes (0.10 - 0.60 /CUMM) 0.8 H Absolute Eosinophils (0.0 - 0.7 /CUMM) 0.2 Absolute Basophils (0.0 - 0.2 /CUMM) 0 Metamyelocytes (0.0 - 1.0 %) 2 H Platelet Estimate (ADEQUATE) VERIFIED BY SMEAR Normocytic RBCs VERIFIED Normochromic RBCs VERIFIED PUBS MCHC (33.0 - 37.0 G/DL) 33.4 Last 24 Hours of Bill Results: Stool C. difficile December 18 negative Recent Imaging Studies: X-ray of the right knee mild degenerative change of the femoral tibial joint with chondrocalcinosis X-ray of the left knee chondrocalcinosis Assessment/Plan Impression: Overall stable with temperatures remaining normal and white blood cell count increasing status post recent chemotherapy, off antibiotics with no evidence of any infectious process. Her peripheral smear, reviewed by the pathologist, reveals marked leukopenia with dysmyelopoietic features, with rare cytoplasmic structures suggesting possible morulae as can be seen in Anaplasma. She has had no significant outdoor exposure and tick transmission would be unusual this time of year; however if she has received blood transfusions recently, this could be considered and could rule it out with a PCR. Her knee x-rays reveal chondrocalcinosis, which is seen with pseudogout and, if she continues to have knee pain, this can be treated. Suggestion: 1. Would send serum for PCR for Anaplasma 2. Consider treatment for pseudogout if knee pain persists 3. Continue to follow off antibiotics
== END 2016-12-19 18:30 | disposition home health service (06) | DRG 808 ==
LOC: ENRESERVTM → ENRESERVDT → ERH 12:41 → 1NO 14:14 → ENPENDDIS 14:14 → ERHI 14:14 → 1NO 19:27
PROVIDERS: Emergency Medicine; ADMIT Hospitalist
DX: D70.1 Agranulocytosis secondary to cancer chemotherapy (principal); I50.33 Acute on chronic diastolic (congestive) heart failure; C79.51 Secondary malignant neoplasm of bone; C85.91 Non-Hodgkin lymphoma, unspecified, lymph nodes of head, face, and neck; I50.32 Chronic diastolic (congestive) heart failure; I11.0 Hypertensive heart disease with heart failure; T45.1X5A Adverse effect of antineoplastic and immunosuppressive drugs, initial encounter; I48.91 Unspecified atrial fibrillation; E86.0 Dehydration; Z66 Do not resuscitate; E03.9 Hypothyroidism, unspecified; E53.8 Deficiency of other specified B group vitamins; J44.9 Chronic obstructive pulmonary disease, unspecified; K21.9 Gastro-esophageal reflux disease without esophagitis; M19.90 Unspecified osteoarthritis, unspecified site; K57.90 Diverticulosis of intestine, part unspecified, without perforation or abscess without bleeding
CPT/HCPCS: 1NP; 87798; 36415; 73501; 73552; 73560-LT; 73560-RT; 74177; 81001; 82436; 87040; 87045; 87070; 87086; 93005; 93010; 96374; J0456; J0713; J1442; J1642; J1940; J3370; J3490; J7060

== ENCOUNTER 2016-12-24 11:09 | Emergency (ER) | payer OTHER, MEDICARE ==
[~2016-12-24 11:09] MED LIST changes: +CITRACAL + D M1 EACH PO; +CLIMARA1 EAC5 TOP; +FLAX OIL1000 M1 PO; +GLUCOSAMINE-CH1 EAC9 PO; +LIDOCAINE1 EACH TOP; +NIACIN500 M6 PO; +PANTOPRAZOLE SO40 M1 PO; +PRIMROSE OIL PO; +PROTONIX40 M3 PO; +SPIRIVA18 MCG INH; +VITAMIN D35000 UNI1 PO; +VITAMIN E1000 UNI1 PO; +XARELTO15 M2 PO
--- NOTE | 2016-12-24 11:33 | ED CARDIAC/CP/PALPITATIONS ---
History of Present Illness General Chief Complaint: Chest Pain Stated Complaint: BIBA, CHEST TIGHTNESS Vital Signs & Intake/Output Vital Signs & Intake/Output Vital Signs Date Time Temp Pulse Resp B/P Pulse O2 O2 Flow FiO2 Ox Delivery Rate 12/24 1111 97.3 88 17 107/57 100 Room Air Allergies Coded Allergies: Penicillins (RASH 12/16/16) acetaminophen (BURNING FEELING IN STOMACH 12/16/16) garlic (NAUSEA 12/16/16) latex (SORES 12/16/16) mold (UNKNOWN 12/16/16) onion (NAUSEA 12/16/16) Sulfa (Sulfonamide Antibiotics) (GI 12/16/16) aspirin (MILD GI 12/16/16) diazepam (GI 12/16/16) oxycodone (GI, MIGRAINE 12/16/16) propoxyphene (GI 12/16/16) Uncoded Allergies: COLOGNE (PER PT UPSETS HER WITH THE SMELL 10/17/16) HAIR SPRAY (PER PT UPSETS HER WITH THE SMELL 10/17/16) SMOKE (PER PT CANT STAND SMELLS IT UPSETS HER 10/17/16) Reconcile Medications Ascorbic Acid (Vitamin C) 500 MG TABLET 1 TAB PO TID SUPPLEMENT (Reported) Biotin 5 MG CAPSULE 1 TAB PO DAILY SUPPLEMENT (Reported) Calcium Carbonate/Vitamin D3 (Calcium 600 + Vit D Tablet) 1 EACH TABLET 1 TAB PO DAILY SUPPLEMENT (Reported) Calcium Citrate/Vitamin D3 (Citracal + D Maximum Caplet) 315 MG-250 UNIT TABLET 1 TAB PO BID SUPPLEMENT (Reported) NOT GIVEN AT HOSPITAL Cholecalciferol (Vitamin D3) (Vitamin D3) 5,000 UNIT TABLET 1 TAB PO DAILY SUPPLEMENT (Reported) Cyanocobalamin (Vitamin B-12) (Cyanocobalamin Injection) 1,000 MCG/1 ML VIAL 1 ML IM Q30D SUPPLEMENT (Reported) Estradiol (Climara) 0.0375 MG/24 HOUR PATCH.TDWK 1 PATCH TOP ESTROGEN ( Reported) Flaxseed Oil (Flax Oil) 1,000 MG CAPSULE 1 CAP PO DAILY SUPPLEMENT (Reported) Folic Acid 0.8 MG TABLET 1 TAB PO BID SUPPLEMENT (Reported) Furosemide (Lasix) 80 MG TABLET 1 TAB PO DAILY WATER PILL (Reported) Glucosam Sul Na/Chondr Shepard A Na (Glucosamine-Chondroitin Tablet) 750 MG-600 MG TABLET 1 TAB PO BID SUPPLEMENT (Reported) Lactose-Reduced Food (Ensure Liquid) 237 ML LIQUID 237 ML PO TID PRN NUTRITIONAL SUPPLEMENT (Reported) Levothyroxine Sodium (Synthroid) 0.125 MG TAB 1 TAB PO DAILY AC THYROID ( Reported) Lidocaine 5 % ADH..PATCH 1 PAT TOP DAILY PRN PAIN (Reported) Magnesium Oxide 400 MG TABLET 1 TAB PO DAILY SUPPLEMENT (Reported) Metoprolol Tartrate (Lopressor) 25 MG TABLET 2 TAB PO BID BLOOD PRESSURE ( Reported) Reason to Stop at ADM: gi bleed and possibility of hypotension Mirabegron (Myrbetriq) 25 MG TAB.ER.24H 1 TAB PO DAILY BLADDER (Reported) Multivitamin (Multiple Vitamins) 1 EACH TABLET 1 TAB PO DAILY SUPPLEMENT ( Reported) Niacinamide (Niacin) 500 MG TABLET 1 TAB PO DAILY SUPPLEMENT (Reported) Pantoprazole Sodium 40 MG TABLET.DR 1 TAB PO DAILY GI (Reported) Pantoprazole Sodium (Protonix) 40 MG TABLET.DR 1 TAB PO BID GI (Reported) Potassium Chloride 20 MEQ TABLET.ER 1 TAB PO QAM SUPPLEMENT (Reported) [PRIMROSE OIL] 1,000 MG PO DAILY SUPPLEMENT (Reported) Rivaroxaban (Xarelto) 15 MG TABLET 1 TAB PO 1700 BLOOD THINNER (Reported) Tiotropium [place] (Spiriva) 18 MCG CAP.W.DEV 1 CAP INH DAILY BREATHING PROBLEMS (Reported) Tramadol HCl 50 MG TABLET 1 TAB PO BIDP PRN PAIN (Reported) Vitamin E Mixed (Vitamin E) 1,000 UNIT CAPSULE 1 CAP PO DAILY SUPPLEMENT ( Reported) Triage Note: Pt BIBA for chest tightness and SOB. Per EMS pt was recently discharged on 12/19 for pulmonary edema Pt states she felt a little chets tightness this AM and felt like she couldn't catch her breath. Past History Travel History Traveled to [place] past 21 day No Medical History Neurological: syncope EENT: submandibular masses Cardiovascular: AFIB, CAD (s/p stent), CHF, rheumatic fever Respiratory: COPD, obstructive sleep apnea Gastrointestinal: GERD, DIVERTICULOSIS Hepatic: NONE Renal: kidney stones Musculoskeletal: osteoarthritis, sciatica Psychiatric: NONE Endocrine: hypothyroidism Blood Disorders: PERNICIOUS ANEMIA B12 deficiency Cancer(s): non-hodgkin lymphoma, CHEMO INJECTION GIVEN 08/10/16 SENIOR ADVOCATE/Reproductive: HYSTERECTOMY Other Medical Hx: Rheumatic fever, asthma, hypothyroidism, cholecystectomy, hysterectomy, diastolic dysfunction, sleep apnea, coronary artery disease, chronic atrial fibrillation. History of MRSA: No History of VRE: No History of CDIFF: No Pneumonia Vaccine: 11/02/08 Influenza Vaccine: 08/18/16 Surgical History Surgical History: cholecystectomy, hernia repair-inguinal, hysterectomy (benign) , bladder surgery Psychosocial History Who do you live with Patient/Self Services at Home Home Health Aide, Nursing What is your primary language Brazilian Tobacco Use: Never used Family History Family History, If Any: MOTHER (hypertension, coronary artery disease and stroke). Relation not specified for: FH: coronary artery disease FH: hypertension FH: stroke Progress Plan of Care: Orders Procedure Date/time Status TROPONIN LEVEL 12/24 1119 Active MAGNESIUM 12/24 1119 Active COMPREHENSIVE METABOLIC PANEL 12/24 1119 Active CHOLESTEROL 12/24 1119 Active CBC WITHOUT DIFFERENTIAL 12/24 1119 Active EKG 12/24 1111 Active Laboratory Tests 12/24/16 1150: Sodium Pending, Potassium Pending, Chloride Pending, Carbon Dioxide Pending, Anion Gap Pending, BUN Pending, Creatinine Pending, BUN/Creatinine Ratio Pending , Glucose Pending, Calcium Pending, Magnesium Pending, Total Bilirubin Pending, AST Pending, ALT Pending, Alkaline Phosphatase Pending, Troponin I Pending, Total Protein Pending, Albumin Pending, Globulin Pending, Albumin/Globulin Ratio Pending, Cholesterol Pending, CBC w Diff Pending, WBC Pending, RBC Pending, Hgb Pending, Hct Pending, MCV Pending, MCH Pending, RDW Pending, Plt Count Pending, MPV Pending, PUBS MCHC Pending Departure Departure Condition: Stable Referrals: CHARITY THOMAS MD (PCP/Family) Departure Forms: Customer Survey General Discharge Information
[2016-12-24 11:59] LABS: ABSOLUTE BASOPHIL COUNT 0 /CUMM (0.0-0.2); ABSOLUTE EOSINOPHIL COUNT 0.1 /CUMM (0.0-0.7); ABSOLUTE GRANULOCYTE CT 4.1 /CUMM (1.4-6.5); ABSOLUTE LYMPH COUNT 0.8 /CUMM (1.2-3.4); ABSOLUTE MONOCYTE COUNT 1.1 /CUMM (0.10-0.60); BASOPHIL % 0.4 % (0.0-2.0); EOSINOPHIL % 1.2 % (0-5); HEMATOCRIT 30.2 % (37-47); MEAN CORPUSCULAR HGB 28.7 PG (27.0-31.0); MEAN CORPUSCULAR HGB CONC 33.1 G/DL (33.0-37.0); MEAN CORPUSCULAR VOLUME 86.7 FL (81.0-99.0); MEAN PLATELET VOLUME 8.2 FL (7.4-10.4); RBC DISTRIBUTION WIDTH 15.6 % (11.5-14.5); RED BLOOD CELL CT 3.48 /CUMM (4.20-5.40)
[2016-12-24 12:07] LABS: GRANULOCYTE % 67.8 % (42.2-75.2)
[2016-12-24 12:10] LABS: PLATELET COUNT 353 /CUMM (130-400)
--- NOTE | 2016-12-24 12:32 | ED CARDIAC/CP/PALPITATIONS ---
History of Present Illness General Chief Complaint: Chest Pain Stated Complaint: BIBA, CHEST TIGHTNESS Source: patient, old records Exam Limitations: no limitations Vital Signs & Intake/Output Vital Signs & Intake/Output Vital Signs Date Time Temp Pulse Resp B/P Pulse O2 O2 Flow FiO2 Ox Delivery Rate 12/24 1401 97 12/24 1329 97.8 98 17 115/62 99 Room Air 12/24 1111 97.3 88 17 107/57 100 Room Air Allergies Coded Allergies: Penicillins (RASH 12/16/16) acetaminophen (BURNING FEELING IN STOMACH 12/16/16) garlic (NAUSEA 12/16/16) latex (SORES 12/16/16) mold (UNKNOWN 12/16/16) onion (NAUSEA 12/16/16) Sulfa (Sulfonamide Antibiotics) (GI 12/16/16) aspirin (MILD GI 12/16/16) diazepam (GI 12/16/16) oxycodone (GI, MIGRAINE 12/16/16) propoxyphene (GI 12/16/16) Uncoded Allergies: COLOGNE (PER PT UPSETS HER WITH THE SMELL 10/17/16) HAIR SPRAY (PER PT UPSETS HER WITH THE SMELL 10/17/16) SMOKE (PER PT CANT STAND SMELLS IT UPSETS HER 10/17/16) Reconcile Medications Ascorbic Acid (Vitamin C) 500 MG TABLET 1 TAB PO TID SUPPLEMENT (Reported) Biotin 5 MG CAPSULE 1 TAB PO DAILY SUPPLEMENT (Reported) Calcium Carbonate/Vitamin D3 (Calcium 600 + Vit D Tablet) 1 EACH TABLET 1 TAB PO DAILY SUPPLEMENT (Reported) Calcium Citrate/Vitamin D3 (Citracal + D Maximum Caplet) 315 MG-250 UNIT TABLET 1 TAB PO BID SUPPLEMENT (Reported) NOT GIVEN AT HOSPITAL Cholecalciferol (Vitamin D3) (Vitamin D3) 5,000 UNIT TABLET 1 TAB PO DAILY SUPPLEMENT (Reported) Cyanocobalamin (Vitamin B-12) (Cyanocobalamin Injection) 1,000 MCG/1 ML VIAL 1 ML IM Q30D SUPPLEMENT (Reported) Estradiol (Climara) 0.0375 MG/24 HOUR PATCH.TDWK 1 PATCH TOP ESTROGEN ( Reported) Flaxseed Oil (Flax Oil) 1,000 MG CAPSULE 1 CAP PO DAILY SUPPLEMENT (Reported) Folic Acid 0.8 MG TABLET 1 TAB PO BID SUPPLEMENT (Reported) Furosemide (Lasix) 80 MG TABLET 1 TAB PO DAILY WATER PILL (Reported) Glucosam Sul Na/Chondr Shepard A Na (Glucosamine-Chondroitin Tablet) 750 MG-600 MG TABLET 1 TAB PO BID SUPPLEMENT (Reported) Lactose-Reduced Food (Ensure Liquid) 237 ML LIQUID 237 ML PO TID PRN NUTRITIONAL SUPPLEMENT (Reported) Levothyroxine Sodium (Synthroid) 0.125 MG TAB 1 TAB PO DAILY AC THYROID ( Reported) Lidocaine 5 % ADH..PATCH 1 PAT TOP DAILY PRN PAIN (Reported) Magnesium Oxide 400 MG TABLET 1 TAB PO DAILY SUPPLEMENT (Reported) Metoprolol Tartrate (Lopressor) 25 MG TABLET 2 TAB PO BID BLOOD PRESSURE ( Reported) Reason to Stop at ADM: gi bleed and possibility of hypotension Mirabegron (Myrbetriq) 25 MG TAB.ER.24H 1 TAB PO DAILY BLADDER (Reported) Multivitamin (Multiple Vitamins) 1 EACH TABLET 1 TAB PO DAILY SUPPLEMENT ( Reported) Niacinamide (Niacin) 500 MG TABLET 1 TAB PO DAILY SUPPLEMENT (Reported) Pantoprazole Sodium 40 MG TABLET.DR 1 TAB PO DAILY GI (Reported) Pantoprazole Sodium (Protonix) 40 MG TABLET.DR 1 TAB PO BID GI (Reported) Potassium Chloride 20 MEQ TABLET.ER 1 TAB PO QAM SUPPLEMENT (Reported) [PRIMROSE OIL] 1,000 MG PO DAILY SUPPLEMENT (Reported) Rivaroxaban (Xarelto) 15 MG TABLET 1 TAB PO 1700 BLOOD THINNER (Reported) Tiotropium [place] (Spiriva) 18 MCG CAP.W.DEV 1 CAP INH DAILY BREATHING PROBLEMS (Reported) Tramadol HCl 50 MG TABLET 1 TAB PO BIDP PRN PAIN (Reported) Vitamin E Mixed (Vitamin E) 1,000 UNIT CAPSULE 1 CAP PO DAILY SUPPLEMENT ( Reported) Triage Note: Pt BIBA for chest tightness and SOB. Per EMS pt was recently discharged on 12/19 for pulmonary edema Pt states she felt a little chets tightness this AM and felt like she couldn't catch her breath. Triage Nurses Notes Reviewed? yes HPI: 86-year-old female with complex medical history lymphoma CHF A. fib coronary disease who was recently admitted to [facility] for neutropenia and CHF, presents via ambulance after approximately one hour of moderate left-sided anterior chest pain that started this morning around 8 AM. She states that she was in her bed with the electric blanket on and she felt as though the blanket was heavy on her chest, she was trying to remove the blanket and had to strain to remove it causing pain in her chest. She was able to get up out of bed and walked to the kitchen, did some dishes and continues to have pain in the chest which was mild. She then called 911 after 1 hour of symptoms. She presents here with minimal symptoms, she felt mildly short of breath earlier however this has resolved without treatment. She denies any cough or congestion any fever or flulike illness. (SHIV ANTOINE) Past History Travel History Traveled to [place] past 21 day No Medical History Any Pertinent Medical History? see below for history Neurological: syncope EENT: submandibular masses Cardiovascular: AFIB, CAD (s/p stent), CHF, rheumatic fever Respiratory: COPD, obstructive sleep apnea Gastrointestinal: GERD, DIVERTICULOSIS Hepatic: NONE Renal: kidney stones Musculoskeletal: osteoarthritis, sciatica Psychiatric: NONE Endocrine: hypothyroidism Blood Disorders: PERNICIOUS ANEMIA B12 deficiency Cancer(s): non-hodgkin lymphoma, CHEMO INJECTION GIVEN 08/10/16 [employer]CHOOL [employer] COOK/Reproductive: HYSTERECTOMY Other Medical Hx: Rheumatic fever, asthma, hypothyroidism, cholecystectomy, hysterectomy, diastolic dysfunction, sleep apnea, coronary artery disease, chronic atrial fibrillation. History of MRSA: No History of VRE: No History of CDIFF: No Influenza Vaccine: 08/18/16 Surgical History Surgical History: cholecystectomy, hernia repair-inguinal, hysterectomy (benign) , bladder surgery Psychosocial History Who do you live with Patient/Self Services at Home Home Health Aide, Nursing What is your primary language Danish Tobacco Use: Never used Family History Family History, If Any: MOTHER (hypertension, coronary artery disease and stroke). Relation not specified for: FH: coronary artery disease FH: hypertension FH: stroke Hx Contributory? No (SHIV ANTOINE) Review of Systems Review of Systems Constitutional: Reports: see HPI. EENTM: Reports: no symptoms. Respiratory: Reports: see HPI. Cardiovascular: Reports: see HPI. GI: Reports: no symptoms. Genitourinary: Reports: no symptoms. Musculoskeletal: Reports: no symptoms. Skin: Reports: no symptoms. Neurological/Psychological: Reports: no symptoms. Hematologic/Endocrine: Reports: no symptoms. Immunologic/Allergic: Reports: no symptoms. All Other Systems: Reviewed and Negative (SHIV ANTOINE) Physical Exam Physical Exam General Appearance: well developed/nourished Cardiovascular: irregularly irregular Comments: Elderly female looks stated age lying on stretcher in no acute distress HEENT: Atraumatic, extraocular motion intact Neck: Supple, no lymphadenopathy Back: Nontender Respiratory: No respiratory distress clear to auscultation bilateral. Abdomen: Soft nontender nondistended Extremities: No edema, full range of motion Neuro: Alert and oriented x3 Psych: Mood affect normal, normal memory normal judgment. Skin: Warm and dry, no rash on exposed skin Core Measures ACS in differential dx? Yes Severe Sepsis Present: No Septic Shock Present: No (JADEN GARCIA,SHIV) Progress Differential Diagnosis: AMI, aortic dissection, atrial fibrillation, cholecystitis, CHF/pulm edema, costochondritis, hyperkalemia, hypovolemia, hyperthyroid, hyperventilation, intracranial hemorrhage, musculoskeletal pain, myocarditis, pancreatitis, pericarditis, pneumonia, pneumothorax, PSVT, pulmonary embolism, PUD/GERD, PVCs/PACs, respiratory failure, rib fracture, sepsis, unstable angina, V-fib/V-Tach, WPW syndrome Plan of Care: Orders Procedure Date/time Status TROPONIN LEVEL 12/24 1119 Complete MAGNESIUM 12/24 1119 Complete COMPREHENSIVE METABOLIC PANEL 12/24 1119 Complete CHOLESTEROL 12/24 1119 Complete CBC WITHOUT DIFFERENTIAL 12/24 1119 Complete EKG 12/24 1111 Active Laboratory Tests 12/24/16 1222: Anion Gap 8, Estimated GFR 52 L, BUN/Creatinine Ratio 15.0, Glucose 98, Calcium 8.9, Magnesium 1.5 L, Total Bilirubin 0.7, AST 44 H, ALT 44, Alkaline Phosphatase 75, Troponin I < 0.01, Total Protein 5.7 L, Albumin 2.9 L, Globulin 2.8, Albumin/Globulin Ratio 1.0 L, Cholesterol 133 12/24/16 1150: CBC w Diff NO MAN DIFF REQ, RBC 3.48 L, MCV 86.7, MCH 28.7, RDW 15.6 H, MPV 8.2, Gran % 67.8, Lymphocytes % 12.6 L, Monocytes % 18.0 H, Eosinophils % 1.2, Basophils % 0.4, Absolute Granulocytes 4.1, Absolute Lymphocytes 0.8 L, Absolute Monocytes 1.1 H, Absolute Eosinophils 0.1, Absolute Basophils 0, PUBS MCHC 33.1 Diagnostic Imaging: Viewed by Me: Radiology Read. Discussed w/RAD: Radiology Read. CXR Impression: PATIENT: ESME CARIAS PRESENT AGE: 86 PATIENT ACCOUNT NO: [id number] : [birth year] LOCATION: [facility] ORDERING PHYSICIAN: SHIV GARCIA SERVICE DATE: 12/24/16 EXAM TYPE: RAD - XRY-PORTABLE CHEST XRAY EXAMINATION: CHEST 1 VIEW CLINICAL INFORMATION: Chest pain. COMPARISON: 12/18/2016. TECHNIQUE: An AP view of the chest is provided. FINDINGS: The cardiac silhouette is enlarged, but stable. A right-sided port is in unchanged position. The mediastinal and hilar contours are unremarkable. There are neither pleural effusions nor pneumothoraces. There are no consolidations. The osseous structures are unremarkable. IMPRESSION: No evidence for acute disease. Stable cardiomegaly. DICTATED BY: CONNIE REICH MD DATE/TIME DICTATED:12/24/161245 Initial ED EKG: rate (100), AFIB, nonspecific ST T wave chg Rhythm Strip: atrial fibrillation (90-100) Comments: Patient has been a somatic throughout her stay here, her workup is negative, chest x-ray and laboratory values are unremarkable. I reviewed her previous records and discussed case with Dr. Sanabria, per cardiology consultation from her last admission reveals that she had a negative stress test and has recurrent chest pain from her lymphoma. I believe this is the case at this time as well. She was reevaluated multiple times and has no complaints, she is stable for discharge home, it is recommended that she follows up with her trucker hand as outpatient. (SHIV ANTOINE) Departure Departure Disposition: HOME OR SELF CARE Condition: Stable Clinical Impression Primary Impression: Chest pain Qualifiers: Chest pain type: other chest pain Qualified Code: R07.89 - Other chest pain Referrals: WILLIAM MAYBERRY,CHARITY (PCP/Family) Additional Instructions: Follow-up with your trucker hand with any concerns of worsening chest pain or shortness of breath Departure Forms: Customer Survey General Discharge Information (SHIV ANTOINE) PA/GUN MECHANIC Co-Sign Statement Statement: ED Attending supervision documentation- x I saw and evaluated the patient. I have also reviewed all the pertinent lab results and diagnostic results. I agree with the findings and the plan of care as documented in the PA's/GUN MECHANIC's documentation. [] I have reviewed the ED Record and agree with the PA's/GUN MECHANIC's documentation. [] Additions or exceptions (if any) to the PAs/GUN MECHANIC's note and plan are summarized below: [] (IRAM MAYBERRY,PAOLA) Critical Care Note Critical Care Note Critical Care Time: non-applicable (JADEN GARCIA,SHIV)
--- NOTE | 2016-12-24 12:49 | RADIOLOGY REPORT ---
EXAMINATION: CHEST 1 VIEW CLINICAL INFORMATION: Chest pain. COMPARISON: 12/18/2016. TECHNIQUE: An AP view of the chest is provided. FINDINGS: The cardiac silhouette is enlarged, but stable. A right-sided port is in unchanged position. The mediastinal and hilar contours are unremarkable. There are neither pleural effusions nor pneumothoraces. There are no consolidations. The osseous structures are unremarkable. IMPRESSION: No evidence for acute disease. Stable cardiomegaly.
[2016-12-24 13:29] VITALS: BP 115/62
== END 2016-12-24 14:00 ==
LOC: ERH 11:09
PROVIDERS: Emergency Medicine
DX: R07.89 Other chest pain (principal)
CPT/HCPCS: 93005; 93010

== ENCOUNTER 2017-01-14 16:36 | Inpatient (IN) | payer OTHER, MEDICARE ==
[~2017-01-14] VITALS: Ht 157.5 cm; Wt 63.5 kg
--- NOTE | 2017-01-14 17:01 | ED GENERAL ADULT ---
History of Present Illness General Chief Complaint: Psychiatric Related Complaint Stated Complaint: SOB, AND +SI Source: patient, family, old records Exam Limitations: no limitations Vital Signs & Intake/Output Vital Signs & Intake/Output Vital Signs Date Time Temp Pulse Resp B/P Pulse O2 O2 Flow FiO2 Ox Delivery Rate 01/14 2301 98.2 125 18 103/65 98 Room Air 01/14 2234 97 Room Air 01/14 2136 98.0 133 18 103/67 96 Room Air 01/14 1902 98/56 01/14 1858 112 16 96 Room Air 01/14 1741 97 ED Intake and Output 01/15 0000 01/14 1200 Intake Total 0 Output Total Balance 0 Intake, Oral 0 Patient 125 lb Weight Allergies Coded Allergies: Penicillins (RASH 12/16/16) acetaminophen (BURNING FEELING IN STOMACH 12/16/16) animal dander (PER 01/14/17) garlic (NAUSEA 12/16/16) latex (SORES 12/16/16) mold (UNKNOWN 12/16/16) onion (NAUSEA 12/16/16) Sulfa (Sulfonamide Antibiotics) (GI 12/16/16) aspirin (MILD GI 12/16/16) diazepam (GI 12/16/16) oxycodone (GI, MIGRAINE 12/16/16) propoxyphene (GI 12/16/16) Uncoded Allergies: COLOGNE (PER PT UPSETS HER WITH THE SMELL 10/17/16) HAIR SPRAY (PER PT UPSETS HER WITH THE SMELL 10/17/16) SMOKE (PER PT CANT STAND SMELLS IT UPSETS HER 10/17/16) TOBACCO (PER 01/14/17) Reconcile Medications Ascorbic Acid (Vitamin C) 500 MG TABLET 1 TAB PO TID SUPPLEMENT (Reported) Biotin 5 MG CAPSULE 1 TAB PO DAILY SUPPLEMENT (Reported) Calcium Carbonate/Vitamin D3 (Calcium 600 + Vit D Tablet) (Unknown Strength) TABLET (Unknown Dose) PO BID SUPPLEMENT (Reported) Cholecalciferol (Vitamin D3) (Vitamin D3) 5,000 UNIT TABLET 1 TAB PO DAILY SUPPLEMENT (Reported) Cyanocobalamin (Vitamin B-12) (Cyanocobalamin Injection) 1,000 MCG/1 ML VIAL 1 ML IM Q30D SUPPLEMENT (Reported) Estradiol (Climara) 0.0375 MG/24 HOUR PATCH.TDWK 1 PATCH TOP ONCE A WEEK HRT (Reported) Flaxseed Oil (Flax Oil) 1,000 MG CAPSULE 1 CAP PO DAILY SUPPLEMENT (Reported) Folic Acid 0.8 MG TABLET 1 TAB PO BID SUPPLEMENT (Reported) Furosemide (Lasix) 80 MG TABLET 0.5 TAB PO BID DIURETIC (Reported) Glucosam Sul Na/Chondr Shepard A Na (Glucosamine-Chondroitin Tablet) 750 MG-600 MG TABLET 1 TAB PO BID SUPPLEMENT (Reported) Guaifenesin/Dextromethorphan (Tussin Dm Cough Syrup) 100 MG-10 MG/5 ML SYRUP 5 -10 ML PO Q4H PRN COUGH (Reported) Hydromorphone HCl 2 MG TABLET 1 TAB PO BID PRN PAIN (Reported) Levothyroxine Sodium (Synthroid) 125 MCG TABLET 1 TAB PO DAILY THYROID ( Reported) Lidocaine 5 % ADH..PATCH 1 PAT TOP DAILY PRN PAIN (Reported) Magnesium Oxide 400 MG TABLET 1 TAB PO DAILY SUPPLEMENT (Reported) Metoprolol Tartrate (Lopressor) 50 MG TABLET 1 TAB PO BID HEART/BP (Reported) Mirabegron (Myrbetriq) 25 MG TAB.ER.24H 1 TAB PO DAILY BLADDER (Reported) Multivitamin (Multiple Vitamins) 1 EACH TABLET 1 TAB PO DAILY SUPPLEMENT ( Reported) Niacinamide (Niacin) 500 MG TABLET 1 TAB PO DAILY SUPPLEMENT (Reported) Ondansetron (Zofran Odt) 8 MG TAB.RAPDIS 1 TAB PO Q8H PRN NAUSEA (Reported) place on top of the tongue where it will dissolve, then swallow Pantoprazole Sodium (Protonix) 40 MG TABLET.DR 1 TAB PO BID GI (Reported) Potassium Chloride (Klor-Con M20) (Unknown Strength) TAB.ER.PRT (Unknown Dose) PO DAILY SUPPLEMENT (Reported) Prednisone 50 MG TABLET 100 MG PO AD STEROID (Reported) [PRIMROSE OIL] 1,000 MG PO DAILY SUPPLEMENT (Reported) Prochlorperazine Maleate 10 MG TABLET 1 TAB PO Q6 PRN N/V (Reported) Rivaroxaban (Xarelto) 15 MG TABLET 1 TAB PO 1700 BLOOD THINNER (Reported) Tiotropium [place] (Spiriva) 18 MCG CAP.W.DEV 1 CAP INH DAILY BREATHING PROBLEMS (Reported) Tramadol HCl 50 MG TABLET 1 TAB PO Q4H PRN PAIN (Reported) Vitamin E Mixed (Vitamin E) 1,000 UNIT CAPSULE 1 CAP PO DAILY SUPPLEMENT ( Reported) Triage Nurses Notes Reviewed? yes Onset: Gradual Duration: constant Timing: recent history Injury Environment: home Severity: severe Severity Numbers: 10 No Modifying Factors: none HPI: Patient is a 86-year-old female with a past medical history of syncope, atrial fibrillation on his overall toe, CHF, COPD, GERD, IBS, nephrolithiasis, OA, hypothyroidism pernicious anemia, non-Hodgkin's lymphoma, large B-cell lymphoma currently being treated for chemotherapy last dose was January 06 patient's oncologist is Dr. LAY. Patient was recently admitted to [facility] approximately one month ago for concerns of acute on chronic CHF and neutropenia in which patient was brought in by ambulance for concerns of chest pain shortness of breath abdominal pain and suicide ideation. Patient states that she became frustrated today from a new visiting nurse where she stated that she wanted to give up and slit her wrist. Patient states that she has no previous history of this and denies current suicide or homicide ideation and is regretful for being upset and stated out of frustration she stated these comments. It is noted to me privately that the son who is present states that she told him today that she wanted to harm herself by cutting her wrist and patient has had recent discussions with son of harming herself. Patient states that she has been complaining of chest pain generalized for the past 3 days and persistent remote history of abdominal pain and shortness of breath. Currently denies any fevers but does have chills. Denies any worsening leg swelling. Patient is able tolerate by mouth. Patient also complains of last few days of melena in her stool no bright red blood. (SUSHMA HENDERSON) Past History Medical History Any Pertinent Medical History? 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 History of MRSA: No History of VRE: No History of CDIFF: No Surgical History Surgical History: cholecystectomy, hernia repair-inguinal, hysterectomy (benign) , bladder surgery Psychosocial History Who do you live with Patient/Self Services at Home Home Health Aide, Nursing What is your primary language Upper Sorbian Family History Family History, If Any: MOTHER (hypertension, coronary artery disease and stroke). Relation not specified for: FH: coronary artery disease FH: hypertension FH: stroke Hx Contributory? No (SUSHMA HENDERSON) Review of Systems Review of Systems Constitutional: Reports: no symptoms. EENTM: Reports: no symptoms. Respiratory: Reports: see HPI, short of breath. Cardiovascular: Reports: see HPI, chest pain. GI: Reports: see HPI, abdominal pain. Genitourinary: Reports: no symptoms. Musculoskeletal: Reports: no symptoms. Skin: Reports: no symptoms. Neurological/Psychological: Reports: see HPI. Hematologic/Endocrine: Reports: no symptoms. Immunologic/Allergic: Reports: no symptoms. All Other Systems: Reviewed and Negative (SUSHMA HENDERSON) Physical Exam Physical Exam General Appearance: no apparent distress, cachetic Comments: Well-developed well-nourished person in no acute distress HEENT: Normal EENT exam, extraocular motion intact, no nystagmus. Pupils equally round and reactive to light and accommodation. Nose is atraumatic. External auditory canal and Tympanic membranes clear. Pharynx normal. No swelling or edema. Neck: Supple, no lymphadenopathy, normal range of motion without pain or tenderness Back: Nontender, no CVA tenderness. Cardiovascular: Regular rate and rhythms no murmurs rubs or gallops, normal JVP Respiratory: Chest nontender. No respiratory distress.breath sounds clear to auscultation bilaterally Abdomen: Soft, generalized point tenderness noted. Normal bowel sounds. No ascites Extremity: No edema, no calf tenderness to palpation, normal and equal pulses. Neuro: Alert oriented x3, motor sensory normal, Skin: No appreciable rash on exposed skin, skin is warm and dry. Psych: Mood and affect is normal, memory and judgment is normal. Core Measures ACS in differential dx? No CVA/TIA Diagnosis: No Severe Sepsis Present: No Septic Shock Present: No (SUSHMA HENDERSON) Progress Differential Diagnoses I considered the following diagnoses in my evaluation of the patient: [ Metastasis, colon cancer, myocardial infarction, PE, diverticulitis, sepsis, suicide ideation, electrolyte abnormality, intra-abdominal abscess,] Plan of Care: Orders Procedure Date/time Status Nothing by Mouth 01/15 B Active Patient Data 01/16 56 Active Saline Lock 01/14 2226 Active Misc Message 01/14 2226 Active ED Holding Orders 01/14 2226 Active Vital Signs 01/14 2226 Active Code Status 01/14 2226 Active ED Holding Orders 01/14 2225 Active Admit to inpatient 01/14 2225 Active LACTIC ACID 01/14 2019 Complete Intake & Output 01/14 185 Active Telemetry/Criminology Professor 01/14 1719 Active Continuous Observation Monitor 01/14 171 Active URINE DRUGS OF ABUSE 01/14 1719 Complete URINALYSIS 01/14 1719 Complete TROPONIN LEVEL 01/14 1719 Complete LIPASE 01/14 1719 Complete ETHANOL 01/14 1719 Complete D-DIMER 01/14 1719 Complete COMPREHENSIVE METABOLIC PANEL 01/14 1719 Complete CBC WITHOUT DIFFERENTIAL 01/14 1719 Complete B-TYPE NATRIURETIC PEP (BNP) 01/14 1719 Complete AMYLASE 01/14 1719 Complete EKG 01/14 164 Active Laboratory Tests 01/15/17 0000: Urine Opiates Screen 1568.00, Methadone Screen < 40, Barbiturate Screen < 60, Ur Phencyclidine Scrn < 6.00, Amphetamines Screen < 100, U Benzodiazepines Scrn < 85, Urine Cocaine Screen < 50, Urine Cannabis Screen < 5.00, Urine Color YEL, Urine Clarity CLEAR, Urine pH 6.5, Ur Specific [place] <= 1.005, Urine Protein NEG, Urine Ketones NEG, Urine Nitrite NEG, Urine Bilirubin NEG, Urine Urobilinogen 0.2, Ur Leukocyte Esterase NEG, Ur Microscopic EXAM NOT REQUIRED, Urine Hemoglobin NEG, Urine Glucose NEG 01/14/17 1851: Lactic Acid 1.5, D-Dimer 1559 H 01/14/17 1826: Anion Gap 8, Estimated GFR 59 L, BUN/Creatinine Ratio 14.4, Glucose 89, Calcium 8.6, Total Bilirubin 0.7, AST 29, ALT 35, Alkaline Phosphatase 91, Troponin I < 0.01, Tkq-Q-Ypqjestxldn Pept 6340 H, Total Protein 5.4 L, Albumin 2.7 L, Globulin 2.7, Albumin/Globulin Ratio 1.0 L, Amylase 32, Lipase 105, CBC w Diff NO MAN DIFF REQ, RBC 2.97 L, MCV 86.2, MCH 28.6, RDW 18.6 H, MPV 8.4, Gran % 80.8 H, Lymphocytes % 8.6 L, Monocytes % 10.0 H, Eosinophils % 0.4, Basophils % 0.2, Absolute Granulocytes 9.4 H, Absolute Lymphocytes 1.0 L, Absolute Monocytes 1.2 H, Absolute Eosinophils 0, Absolute Basophils 0, PUBS MCHC 33.2, Serum Alcohol < 10.0 Patient currently was in no apparent distress however patient does have significant concerns of multiple comorbidities in which blood work was obtained showing significant elevation of d-dimer and which CT angiogram of chest was resulted showing no concerns of pulmonary embolism. Patient initially was given morphine with significant resolution of presenting complaints of pain Patient does have concerns of diverticulitis and intra-abdominal abscess I discussed patient with surgeon Dr. PRINCE and which he evaluated the CT scan which he states that at this time due to his observation of the CT scan there is no overt emergent warranting for surgical intervention however surgical PA will evaluate patient as well. Patient was given IV antibiotics And slow fluid resuscitation. I discussed admission with patient who was currently in no apparent distress and was aware of disposition and plan Patient also has also been placed with a sitter due to concerns of suicidal ideation in which she will WARRANT a CRISIS consult after admission. Discussed patient with Dr. Dangelo who will discuss admission to the attending physician (BROWN GARCIA,SUSHMA) Diagnostic Imaging: Viewed by Me: CT Scan. Radiology Impression: SEE COMMENTS Initial ED EKG: ATRIAL FIBRILLATION 120 BPM Prior EKG: unchanged Hand-Off Endorsed To: SONYA MAYBERRY,BUCK uRtledge Endorsed Time: 51 Pending: other Comments: PATIENT: ESME CARIAS PRESENT AGE: 86 PATIENT ACCOUNT NO: [id number] : [birth year] LOCATION: [facility] ORDERING PHYSICIAN: SUSHMA GARCIA SERVICE DATE: 01/14/17 EXAM TYPE: CAT - CT ABD & PELVIS W IV CONTRAST; CTA CHEST-PULMONARY EMBOLISM EXAMINATION: CT ANGIOGRAM OF THE CHEST WITH CONTRAST (CT PULMONARY ANGIOGRAM FOR PE) CLINICAL INFORMATION: Chest pain. COMPARISON: CXR from 10/18/2016 and 12/24/2016. Chest CT from 12/16/2016. TECHNIQUE: Prior to contrast administration, noncontrast localization images were obtained. Subsequently, multidetector volumetric imaging was performed from the thoracic inlet to below the diaphragms following the administration of 125 mL of Optiray 350 intravenous contrast. No contrast reaction reported. Sagittal, coronal, and MIP oblique sagittal reformatted images were obtained on the CT workstation, uploaded to PACS, and reviewed. Total exam dose-length product 544 mGy-cm FINDINGS: QUALITY OF STUDY/CONTRAST BOLUS: Satisfactory. PULMONARY ARTERIES: The pulmonary artery trunk is dilated up to 3.3 cm; this suggests possibility of pulmonary arterial hypertension. No evidence of embolic filling defects within the main, lobar or segmental vessels. THORACIC AORTA: There is atherosclerotic calcification of the thoracic aorta without aneurysm or dissection. LUNGS AND PLEURA: Lungs have mosaic attenuation, suggesting presence of air trapping phenomenon from small airways disease. Although there has been interval improvement with resolution of previous seen noted interstitial edema, small bilateral pleural effusions persist. The pleural effusions have decreased in size compared to 12/16/2016. Small, 0.2 cm and 0.3 cm noncalcified nodules of the right lung apex are stable compared to 10/18/2016 (images 73 and 83, series 2). No interval development of a suspicious lung nodule. Mild atelectasis is present within the inferior lingula and lower lobes. MEDIASTINUM: Again noted is cardiomegaly with marked enlargement of the atrial chambers. Coronary arteries are calcified. Mitral valve annulus is calcified. No pericardial effusion. The esophagus is unremarkable. LYMPHATICS: No pathologic sized axillary or hilar lymph nodes. There are stable, borderline enlarged lymph nodes in mediastinum. No progressively enlarging lymph nodes are seen. UPPER ABDOMEN: Reflux of contrast into the intrahepatic IVC and hepatic veins, indicative of cardiac dysfunction with elevated right-sided cardiac pressures. OSSEOUS STRUCTURES: No acute findings within the degenerated thoracic spine. There is a stable lytic lesion within the left scapula that involves the base of the coracoid and subarticular region of the glenoid. This was described as a lesion related to patient's lymphoma on the PET-CT exam of 07/04/2016. IMPRESSION: 1. No pulmonary embolism. 2. Atherosclerotic disease of the coronary arteries, cardiomegaly and evidence of right heart dysfunction as manifest by reflux of contrast into the IVC and hepatic veins. There has been interval improvement of previously noted pulmonary edema. The pleural effusions have decreased in size compared to 12/16/2016. 3. Lungs have mosaic attenuation, suggestive of air trapping phenomenon from small airways disease. EXAMINATION: CT ABDOMEN PELVIS WITH IV CONTRAST CLINICAL INFORMATION: Abdominal pain. COMPARISON: CT of abdomen pelvis from 12/16/2015. TECHNIQUE: A volumetric helical CT acquisition of the abdomen and pelvis was obtained and axial images are presented at 0.625 mm and 5 mm slice thickness. Coronal and sagittal reformatted images were generated at the technologist workstation. Intravenous contrast -- see the chest CT report above. FINDINGS: LIVER, GALLBLADDER, AND BILIARY TREE: Liver has normal size, contour and parenchymal attenuation. No suspicious hepatic lesion. Gallbladder is absent and the common bile duct measures 1 cm diameter, compared to 0.8 cm on 12/16/2016. The central intrahepatic bile ducts are mildly dilated. PANCREAS: Unremarkable. SPLEEN: There are a few stable hypodense splenic lesions, including a 1.2 cm lesion (image 18, series 5), likely related to patient's lymphoma. A trace amount of ascitic fluid in the abdomen extends posterior to the spleen. ADRENAL GLANDS: Unremarkable. KIDNEYS AND URETERS: Kidneys enhance symmetrically. A small, stable cortical cyst is seen at the upper pole the left kidney. No suspicious renal lesion. No nephrolithiasis or hydronephrosis. The ureters are normal in caliber. BLADDER: Unremarkable. GASTROINTESTINAL TRACT: Loops of bowel are normal in caliber. There is pancolonic diverticulosis. A segment of the mid transverse colon exhibits abnormal wall thickening (images 47-50, series 5) and, extending from the posterior wall of the thickened colon, there is a rim-enhancing interloop abscess that is intimately associated with the adjacent, thick-walled small bowel. The area of the interloop abscess measures approximately 5 cm AP, 3 cm transverse and 3.6 cm craniocaudal. There is edema/inflammation of the adjacent mesentery. Small amount of ascitic fluid is present within the abdomen and pelvis. ABDOMINAL WALL: There is edema within subcutaneous tissues of the abdominal wall. LYMPH NODES: No pathologic sized retroperitoneal, iliac or inguinal lymph nodes. VASCULAR: Atherosclerotic calcification of the abdominal aorta and iliac arteries without aneurysm. PELVIC: The uterus is absent. A moderate amount of ascitic fluid is present within the pelvis. MUSCULOSKELETAL: There is a stable lytic lesion of the anteromedial left acetabulum (images 67-70, series 5). No new lytic bone lesions. No acute findings in the degenerated lumbar spine. IMPRESSION: 1. Pancolonic diverticulosis and probable subacute diverticulitis. There is an interloop, rim-enhancing abscess extending from the posterior wall of the mid transverse colon and intimately associated with the adjacent thick-walled small bowel (images 47-54, series 5). No bowel obstruction. Small amount of ascitic fluid is present in the abdomen and pelvis. 2. The small, hypodense lesions in the spleen are unchanged and are likely related to patient's lymphoma. Also, there is a stable lytic lesion involving the anteromedial left acetabulum. No new lytic bone lesions are seen. 3. Status post cholecystectomy with dilated common duct (1 cm diameter) and intrahepatic bile ducts. No CT imaging evidence of choledocholithiasis. DICTATED BY: GLORIA CHAVEZ MD DATE/TIME DICTATED:01/14/172119 PRODUCTION SHIFT SUPERVISOR:BALDEMAR DATE/TIME TRANSCRIBED:01/14/172119 (SUSHMA HENDERSON) Departure Departure Disposition: STILL A PATIENT Condition: Guarded Clinical Impression Primary Impression: Intra-abdominal abscess Secondary Impressions: Chest pain, Diverticulitis, Suicidal thoughts Referrals: CHARITY THOMAS MD (PCP/Family) Departure Forms: Customer Survey General Discharge Information Admission Note Spoke With: JOURDAN HAJI MD Documentation of Exam: Documentation of any treatments & extenuating circumstances including Concerns Regarding Discharge (functional status, medication knowledge or non-compliance, living conditions, etc.) that warrant an admission rather than observation: [Dr. Dangelo discussed admission with who agrees with general medicine admission for concerns of diverticulitis intra-abdominal abscess and suicide ideation. Patient requires IV antibiotics, repeat labs, crisis consultation a sitter for monitoring and surgical auscultation. Outpatient treatment at this time would be medically harmful] (SUSHMA HENDERSON) PA/DIDACTIC INSTRUCTOR Co-Sign Statement Statement: ED Attending supervision documentation- [] I saw and evaluated the patient. I have also reviewed all the pertinent lab results and diagnostic results. I agree with the findings and the plan of care as documented in the PA's/DIDACTIC INSTRUCTOR's documentation. [X] I have reviewed the ED Record and agree with the PA's/DIDACTIC INSTRUCTOR's documentation. [] Additions or exceptions (if any) to the PAs/DIDACTIC INSTRUCTOR's note and plan are summarized below: [] (SONYA MAYBERRY,BUCK Rutledge) Critical Care Note Critical Care Note Critical Care Time: 30-74 min (SUSHMA HENDERSON)
[2017-01-14 18:46] LABS: ABSOLUTE BASOPHIL COUNT 0 /CUMM (0.0-0.2); ABSOLUTE EOSINOPHIL COUNT 0 /CUMM (0.0-0.7); ABSOLUTE GRANULOCYTE CT 9.4 /CUMM (1.4-6.5); ABSOLUTE MONOCYTE COUNT 1.2 /CUMM (0.10-0.60); BASOPHIL % 0.2 % (0.0-2.0); EOSINOPHIL % 0.4 % (0-5); GRANULOCYTE % 80.8 % (42.2-75.2); HEMATOCRIT 25.6 % (37-47); MEAN CORPUSCULAR HGB 28.6 PG (27.0-31.0); MEAN CORPUSCULAR HGB CONC 33.2 G/DL (33.0-37.0); MEAN CORPUSCULAR VOLUME 86.2 FL (81.0-99.0); MEAN PLATELET VOLUME 8.4 FL (7.4-10.4); PLATELET COUNT 286 /CUMM (130-400); RBC DISTRIBUTION WIDTH 18.6 % (11.5-14.5); RED BLOOD CELL CT 2.97 /CUMM (4.20-5.40); WHITE BLOOD CELL COUNT 11.6 /CUMM (4.8-10.8)
[2017-01-14] MEDS ORDERED: HYDROMORPHONE HC2 M1 PO (19:27)
[2017-01-14] MEDS ORDERED: KLOR-CON M2020 ME1 PO (19:28)
[2017-01-14] MEDS ORDERED: ZOFRAN ODT8 M1 PO (19:30)
[2017-01-14] MEDS ORDERED: PREDNISONE50 M1 PO (19:31)
[2017-01-14] MEDS ORDERED: PROCHLORPERAZIN10 MG PO (19:32)
[2017-01-14] MEDS ORDERED: SYNTHROID125 MCG PO (19:33)
[2017-01-14] MEDS ORDERED: TUSSIN DM COUG120 ML PO (19:35)
--- NOTE | 2017-01-14 21:56 | CT SCAN REPORT ---
EXAMINATION: CT ANGIOGRAM OF THE CHEST WITH CONTRAST (CT PULMONARY ANGIOGRAM FOR PE) CLINICAL INFORMATION: Chest pain. COMPARISON: CXR from 10/18/2016 and 12/24/2016. Chest CT from 12/16/2016. TECHNIQUE: Prior to contrast administration, noncontrast localization images were obtained. Subsequently, multidetector volumetric imaging was performed from the thoracic inlet to below the diaphragms following the administration of 125 mL of Optiray 350 intravenous contrast. No contrast reaction reported. Sagittal, coronal, and MIP oblique sagittal reformatted images were obtained on the CT workstation, uploaded to PACS, and reviewed. Total exam dose-length product 544 mGy-cm FINDINGS: QUALITY OF STUDY/CONTRAST BOLUS: Satisfactory. PULMONARY ARTERIES: The pulmonary artery trunk is dilated up to 3.3 cm; this suggests possibility of pulmonary arterial hypertension. No evidence of embolic filling defects within the main, lobar or segmental vessels. THORACIC AORTA: There is atherosclerotic calcification of the thoracic aorta without aneurysm or dissection. LUNGS AND PLEURA: Lungs have mosaic attenuation, suggesting presence of air trapping phenomenon from small airways disease. Although there has been interval improvement with resolution of previous seen noted interstitial edema, small bilateral pleural effusions persist. The pleural effusions have decreased in size compared to 12/16/2016. Small, 0.2 cm and 0.3 cm noncalcified nodules of the right lung apex are stable compared to 10/18/2016 (images 73 and 83, series 2). No interval development of a suspicious lung nodule. Mild atelectasis is present within the inferior lingula and lower lobes. MEDIASTINUM: Again noted is cardiomegaly with marked enlargement of the atrial chambers. Coronary arteries are calcified. Mitral valve annulus is calcified. No pericardial effusion. The esophagus is unremarkable. LYMPHATICS: No pathologic sized axillary or hilar lymph nodes. There are stable, borderline enlarged lymph nodes in mediastinum. No progressively enlarging lymph nodes are seen. UPPER ABDOMEN: Reflux of contrast into the intrahepatic IVC and hepatic veins, indicative of cardiac dysfunction with elevated right-sided cardiac pressures. OSSEOUS STRUCTURES: No acute findings within the degenerated thoracic spine. There is a stable lytic lesion within the left scapula that involves the base of the coracoid and subarticular region of the glenoid. This was described as a lesion related to patient's lymphoma on the PET-CT exam of 07/04/2016. IMPRESSION: 1. No pulmonary embolism. 2. Atherosclerotic disease of the coronary arteries, cardiomegaly and evidence of right heart dysfunction as manifest by reflux of contrast into the IVC and hepatic veins. There has been interval improvement of previously noted pulmonary edema. The pleural effusions have decreased in size compared to 12/16/2016. 3. Lungs have mosaic attenuation, suggestive of air trapping phenomenon from small airways disease. EXAMINATION: CT ABDOMEN PELVIS WITH IV CONTRAST CLINICAL INFORMATION: Abdominal pain. COMPARISON: CT of abdomen pelvis from 12/16/2015. TECHNIQUE: A volumetric helical CT acquisition of the abdomen and pelvis was obtained and axial images are presented at 0.625 mm and 5 mm slice thickness. Coronal and sagittal reformatted images were generated at the technologist workstation. Intravenous contrast -- see the chest CT report above. FINDINGS: LIVER, GALLBLADDER, AND BILIARY TREE: Liver has normal size, contour and parenchymal attenuation. No suspicious hepatic lesion. Gallbladder is absent and the common bile duct measures 1 cm diameter, compared to 0.8 cm on 12/16/2016. The central intrahepatic bile ducts are mildly dilated. PANCREAS: Unremarkable. SPLEEN: There are a few stable hypodense splenic lesions, including a 1.2 cm lesion (image 18, series 5), likely related to patient's lymphoma. A trace amount of ascitic fluid in the abdomen extends posterior to the spleen. ADRENAL GLANDS: Unremarkable. KIDNEYS AND URETERS: Kidneys enhance symmetrically. A small, stable cortical cyst is seen at the upper pole the left kidney. No suspicious renal lesion. No nephrolithiasis or hydronephrosis. The ureters are normal in caliber. BLADDER: Unremarkable. GASTROINTESTINAL TRACT: Loops of bowel are normal in caliber. There is pancolonic diverticulosis. A segment of the mid transverse colon exhibits abnormal wall thickening (images 47-50, series 5) and, extending from the posterior wall of the thickened colon, there is a rim-enhancing interloop abscess that is intimately associated with the adjacent, thick-walled small bowel. The area of the interloop abscess measures approximately 5 cm AP, 3 cm transverse and 3.6 cm craniocaudal. There is edema/inflammation of the adjacent mesentery. Small amount of ascitic fluid is present within the abdomen and pelvis. ABDOMINAL WALL: There is edema within subcutaneous tissues of the abdominal wall. LYMPH NODES: No pathologic sized retroperitoneal, iliac or inguinal lymph nodes. VASCULAR: Atherosclerotic calcification of the abdominal aorta and iliac arteries without aneurysm. PELVIC: The uterus is absent. A moderate amount of ascitic fluid is present within the pelvis. MUSCULOSKELETAL: There is a stable lytic lesion of the anteromedial left acetabulum (images 67-70, series 5). No new lytic bone lesions. No acute findings in the degenerated lumbar spine. IMPRESSION: 1. Pancolonic diverticulosis and probable subacute diverticulitis. There is an interloop, rim-enhancing abscess extending from the posterior wall of the mid transverse colon and intimately associated with the adjacent thick-walled small bowel (images 47-54, series 5). No bowel obstruction. Small amount of ascitic fluid is present in the abdomen and pelvis. 2. The small, hypodense lesions in the spleen are unchanged and are likely related to patient's lymphoma. Also, there is a stable lytic lesion involving the anteromedial left acetabulum. No new lytic bone lesions are seen. 3. Status post cholecystectomy with dilated common duct (1 cm diameter) and intrahepatic bile ducts. No CT imaging evidence of choledocholithiasis.
--- NOTE | 2017-01-15 00:59 | Cons- General Surgery ---
General Information and HPI Consulting Request Date of Consult: 01/14/17 Requested By: Radames GARCIA Reason for Consult: abdominal pain Source of Information: patient Exam Limitations: no limitations History of Present Illness: Patient is an 86-year-old female with past medical history of non-Hodgkin's lymphoma, syncope, submandibular masses, atrial fibrillation, CHF, COPD, GERD, diverticulosis, diverticulitis, nephrolithiasis, osteoarthritis,hypothyroidism, pernicious anemia, Vit B12 deficiency Her most recent chemo treatment was 2 weeks ago She presented to the [facility] complaining of abdominal pain increasing over the past day. She hasn't eaten much in the past 24 hours but claims to not have much of an appetite over several months. She is passing flatus and tolerating liquids without any nausea or pain. She has been given morphine in the ED and is now feeling better. No other specific complaints at this time. She does have a history of diverticulitis but hasn't had any recent flair ups that she is aware of, however is also on prednisone associated with her chemo. Of note, earlier today she told her nurse that she wanted to . She lives at home alone but has home health care. She is also DNR/DNI Allergies/Medications Allergies: Coded Allergies: Penicillins (RASH 12/16/16) acetaminophen (BURNING FEELING IN STOMACH 12/16/16) animal dander (PER 01/14/17) garlic (NAUSEA 12/16/16) latex (SORES 12/16/16) mold (UNKNOWN 12/16/16) onion (NAUSEA 12/16/16) Sulfa (Sulfonamide Antibiotics) (GI 12/16/16) aspirin (MILD GI 12/16/16) diazepam (GI 12/16/16) oxycodone (GI, MIGRAINE 12/16/16) propoxyphene (GI 12/16/16) Uncoded Allergies: COLOGNE (PER PT UPSETS HER WITH THE SMELL 10/17/16) HAIR SPRAY (PER PT UPSETS HER WITH THE SMELL 10/17/16) SMOKE (PER PT CANT STAND SMELLS IT UPSETS HER 10/17/16) TOBACCO (PER 01/14/17) Home Med List: Ascorbic Acid (Vitamin C) 500 MG TABLET 1 TAB PO TID SUPPLEMENT (Reported) Biotin 5 MG CAPSULE 1 TAB PO DAILY SUPPLEMENT (Reported) Calcium Carbonate/Vitamin D3 (Calcium 600 + Vit D Tablet) (Unknown Strength) TABLET (Unknown Dose) PO BID SUPPLEMENT (Reported) Cholecalciferol (Vitamin D3) (Vitamin D3) 5,000 UNIT TABLET 1 TAB PO DAILY SUPPLEMENT (Reported) Cyanocobalamin (Vitamin B-12) (Cyanocobalamin Injection) 1,000 MCG/1 ML VIAL 1 ML IM Q30D SUPPLEMENT (Reported) Estradiol (Climara) 0.0375 MG/24 HOUR PATCH.TDWK 1 PATCH TOP ONCE A WEEK HRT (Reported) Flaxseed Oil (Flax Oil) 1,000 MG CAPSULE 1 CAP PO DAILY SUPPLEMENT (Reported) Folic Acid 0.8 MG TABLET 1 TAB PO BID SUPPLEMENT (Reported) Furosemide (Lasix) 80 MG TABLET 0.5 TAB PO BID DIURETIC (Reported) Glucosam Sul Na/Chondr Shepard A Na (Glucosamine-Chondroitin Tablet) 750 MG-600 MG TABLET 1 TAB PO BID SUPPLEMENT (Reported) Guaifenesin/Dextromethorphan (Tussin Dm Cough Syrup) 100 MG-10 MG/5 ML SYRUP 5 -10 ML PO Q4H PRN COUGH (Reported) Hydromorphone HCl 2 MG TABLET 1 TAB PO BID PRN PAIN (Reported) Levothyroxine Sodium (Synthroid) 125 MCG TABLET 1 TAB PO DAILY THYROID ( Reported) Lidocaine 5 % ADH..PATCH 1 PAT TOP DAILY PRN PAIN (Reported) Magnesium Oxide 400 MG TABLET 1 TAB PO DAILY SUPPLEMENT (Reported) Metoprolol Tartrate (Lopressor) 50 MG TABLET 1 TAB PO BID HEART/BP (Reported) Mirabegron (Myrbetriq) 25 MG TAB.ER.24H 1 TAB PO DAILY BLADDER (Reported) Multivitamin (Multiple Vitamins) 1 EACH TABLET 1 TAB PO DAILY SUPPLEMENT ( Reported) Niacinamide (Niacin) 500 MG TABLET 1 TAB PO DAILY SUPPLEMENT (Reported) Ondansetron (Zofran Odt) 8 MG TAB.RAPDIS 1 TAB PO Q8H PRN NAUSEA (Reported) place on top of the tongue where it will dissolve, then swallow Pantoprazole Sodium (Protonix) 40 MG TABLET.DR 1 TAB PO BID GI (Reported) Potassium Chloride (Klor-Con M20) (Unknown Strength) TAB.ER.PRT (Unknown Dose) PO DAILY SUPPLEMENT (Reported) Prednisone 50 MG TABLET 100 MG PO AD STEROID (Reported) [PRIMROSE OIL] 1,000 MG PO DAILY SUPPLEMENT (Reported) Prochlorperazine Maleate 10 MG TABLET 1 TAB PO Q6 PRN N/V (Reported) Rivaroxaban (Xarelto) 15 MG TABLET 1 TAB PO 1700 BLOOD THINNER (Reported) Tiotropium [place] (Spiriva) 18 MCG CAP.W.DEV 1 CAP INH DAILY BREATHING PROBLEMS (Reported) Tramadol HCl 50 MG TABLET 1 TAB PO Q4H PRN PAIN (Reported) Vitamin E Mixed (Vitamin E) 1,000 UNIT CAPSULE 1 CAP PO DAILY SUPPLEMENT ( Reported) Past History Medical History Neurological: syncope EENT: submandibular masses Cardiovascular: AFIB, CAD (s/p stent), CHF, rheumatic fever Respiratory: COPD, obstructive sleep apnea Gastrointestinal: GERD, DIVERTICULOSIS Hepatic: NONE Renal: kidney stones Musculoskeletal: osteoarthritis, sciatica Psychiatric: NONE Endocrine: hypothyroidism Blood Disorders: PERNICIOUS ANEMIA B12 deficiency Cancer(s): non-hodgkin lymphoma, CHEMO INJECTION GIVEN 08/10/16 OPERATIONS MANAGER STATION/Reproductive: HYSTERECTOMY Other Medical Hx: Rheumatic fever, asthma, hypothyroidism, cholecystectomy, hysterectomy, diastolic dysfunction, sleep apnea, coronary artery disease, chronic atrial fibrillation. Surgical History Pertinent Surgical History: cholecystectomy, hernia repair-inguinal, hysterectomy (benign), bladder surgery Family History Relations & Conditions If Any: MOTHER (hypertension, coronary artery disease and stroke). Relation not specified for: FH: coronary artery disease FH: hypertension FH: stroke Psychosocial History Who Do You Live With? self Services at Home: Home Health Aide, Nursing Primary Language: Lao ETOH Use: denies use Illicit Drug Use: denies illicit drug use Living Will? 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 yes Name of POA/HCP: Pt's son, Juliocesar Saldana. Functional Ability ADLs Independent: dressing, eating, toileting, bathing. Ambulation: independent IADLs Independent: shopping, housework, finances, food prep, telephone, transportation , medication admin. Review of Systems Review of Systems: Abdominal pain Exam & Diagnostic Data Vital Signs and I&O Vital Signs Date Time Temp Pulse Resp B/P Pulse O2 O2 Flow FiO2 Ox Delivery Rate 01/14 2301 98.2 125 18 103/65 98 Room Air 01/14 2234 97 Room Air 01/14 2136 98.0 133 18 103/67 96 Room Air 01/14 1902 98/56 01/14 1858 112 16 96 Room Air 01/14 1741 97 Intake & Output 01/15 1600 01/14 0801/14 0000 01/13 1600 Intake Total 0 Output Total Balance 0 Intake, Oral 0 Patient 125 lb Weight Physical Exam: general: alert and oriented Chest: clear anteriorly bilaterally, Regular rhythm, rate about 115 Abd: soft, nondistended, tender to moderate palpationo across the mid abdomen, good bowel sounds Ext: warm, no edema Last 24 Hours of Labs: Laboratory Tests 01/15 01/14 0000 1851 Chemistry Lactic Acid (0.7 - 2.1 mmol/L) 1.5 Coagulation D-Dimer (70 - 232 ng/ml) 1559 H Toxicology Urine Opiates Screen (>2000 NG/ML) 1568.00 Methadone Screen (>300 NG/ML) < 40 Barbiturate Screen (>200 NG/ML) < 60 Ur Phencyclidine Scrn (>25 NG/ML) < 6.00 Amphetamines Screen (>1000 NG/ML) < 100 U Benzodiazepines Scrn (>200 NG/ML) < 85 Urine Cocaine Screen (>300 NG/ML) < 50 Urine Cannabis Screen (>50 NG/ML) < 5.00 Urines Urine Color (YEL,AMB,STR) YEL Urine Clarity (CLEAR) CLEAR Urine pH (5.0 - 8.0) 6.5 Ur Specific [place] (1.001 - 1.035) <= 1.005 Urine Protein (NEG,<30 MG/DL) NEG Urine Ketones (NEG) NEG Urine Nitrite (NEG) NEG Urine Bilirubin (NEG) NEG Urine Urobilinogen (0.1 - 1.0 EU/dl) 0.2 Ur Leukocyte Esterase (NEG) NEG Ur Microscopic EXAM NOT REQUIRED Urine Hemoglobin (NEG) NEG Urine Glucose (N MG/DL) NEG 01/14 1826 Chemistry Sodium (137 - 145 mmol/L) 133 L Potassium (3.5 - 5.1 mmol/L) 3.6 Chloride (98 - 107 mmol/L) 95 L Carbon Dioxide (22 - 30 mmol/L) 30 Anion Gap (5 - 16) 8 BUN (7 - 17 mg/dL) 13 Creatinine (0.5 - 1.0 mg/dL) 0.9 Estimated GFR (>60 ml/min) 59 L BUN/Creatinine Ratio (7 - 25 %) 14.4 Glucose (65 - 99 mg/dL) 89 Calcium (8.4 - 10.2 mg/dL) 8.6 Total Bilirubin (0.2 - 1.3 mg/dL) 0.7 AST (14 - 36 U/L) 29 ALT (9 - 52 U/L) 35 Alkaline Phosphatase (<127 U/L) 91 Troponin I (< 0.11 ng/ml) < 0.01 [id number] Pept (<125 pg/mL) 6340 H Total Protein (6.3 - 8.2 g/dL) 5.4 L Albumin (3.5 - 5.0 g/dL) 2.7 L Globulin (1.9 - 4.2 gm/dL) 2.7 Albumin/Globulin Ratio (1.1 - 2.2 %) 1.0 L Amylase (30 - 110 U/L) 32 Lipase (23 - 300 U/L) 105 Hematology CBC w Diff NO MAN DIFF REQ WBC (4.8 - 10.8 /CUMM) 11.6 H RBC (4.20 - 5.40 /CUMM) 2.97 L Hgb (12.0 - 16.0 G/DL) 8.5 L Hct (37 - 47 %) 25.6 L MCV (81.0 - 99.0 FL) 86.2 MCH (27.0 - 31.0 PG) 28.6 RDW (11.5 - 14.5 %) 18.6 H Plt Count (130 - 400 /CUMM) 286 MPV (7.4 - 10.4 FL) 8.4 Gran % (42.2 - 75.2 %) 80.8 H Lymphocytes % (20.5 - 51.1 %) 8.6 L Monocytes % (1.7 - 9.3 %) 10.0 H Eosinophils % (0 - 5 %) 0.4 Basophils % (0.0 - 2.0 %) 0.2 Absolute Granulocytes (1.4 - 6.5 /CUMM) 9.4 H Absolute Lymphocytes (1.2 - 3.4 /CUMM) 1.0 L Absolute Monocytes (0.10 - 0.60 /CUMM) 1.2 H Absolute Eosinophils (0.0 - 0.7 /CUMM) 0 Absolute Basophils (0.0 - 0.2 /CUMM) 0 PUBS MCHC (33.0 - 37.0 G/DL) 33.2 Toxicology Serum Alcohol (<10 MG/DL) < 10.0 Imaging Results: CT abdomen: . Pancolonic diverticulosis and probable subacute diverticulitis. There is an interloop, rim-enhancing abscess extending from the posterior wall of the mid transverse colon and intimately associated with the adjacent thick-walled small bowel (images 47-54, series 5). No bowel obstruction. Small amount of ascitic fluid is present in the abdomen and pelvis. 2. The small, hypodense lesions in the spleen are unchanged and are likely related to patient's lymphoma. Also, there is a stable lytic lesion involving the anteromedial left acetabulum. No new lytic bone lesions are seen. 3. Status post cholecystectomy with dilated common duct (1 cm diameter) and intrahepatic bile ducts. No CT imaging evidence of choledocholithiasis. Assessment/Plan Assessment/Plan 86 yo female with multiple co morbidities, currently with non hodgkins lymphoma with bone mets, presents with abdominal pain and CT revealing ?abscess Discussed with Dr Chong Pt does not have a surgical abdomen and no surgery is warranted at this time Discussed with patient the possibility of that arising in the future as she is DNR/DNI - will discuss further At this time would recommend npo/ivf/antibiotics(rocephin and flagyl already started in ED) Would hold xarelto in case surgery is warranted or possible an IR placed perc drain if the abscess doesn't resolve medically All other plan per medical team Copies To: NIKI MAYBERRY,SUSANNA Coppola Consult Acknowledgment - Thank you for your consult request.
--- NOTE | 2017-01-15 01:36 | History & Physical ---
MATTHEW MAYBERRY,[facility] 01/15/17 0136: General Information and HPI MD Statement: I have seen and personally examined ESME CARIAS and documented this H& P. The patient is a 86 year old F who presented with a patient stated chief complaint of abdominal pain and suicidal ideation. Source of Information: patient Exam Limitations: no limitations History of Present Illness: This is a 86-year-old lady with a past medical history of A. fib on several to, CHF, COPD, syncope, GERD, arthritis, IBS, hypothyroidism, pernicious anemia, non -Hodgkin lymphoma, large B-cell lymphoma on chemotherapy with Cytoxan, vincristine prednisone and Rituxan with last treatment on January 06, and a recent admission to [place] ED for fall and management of decompensated CHF and neutropenia is brought in by ambulance for evaluation of abdominal pain and possible suicidal ideation. She reports 2 week old right lower quadrant abdominal pain that is progressively worsened. Patient describes the pain as sharp and nonradiating. Associated symptoms include bile vomiting, nausea, chills, diarrhea, episodes of bright red blood per rectum ,black tarry stools and decreased oral intake. She also endorses shortness of breath and some chest pain. Denies any recent infection, or sick contact. Regarding suicidal ideation, patient adamantly denies intent to harm herself. She is reported to have told her nursing services manager that she is going to see in her bathtub. Liver, patient states that her comments were based on frustration of not getting any help with her 2-week-old abdominal pain and indeed she did not intent was not planning to actually slit her wrists. Patient states "I will never kill myself, I have kids and grandkids". Allergies/Medications Allergies: Coded Allergies: Penicillins (RASH 12/16/16) acetaminophen (BURNING FEELING IN STOMACH 12/16/16) animal dander (PER MAR 01/14/17) garlic (NAUSEA 12/16/16) latex (SORES 12/16/16) mold (UNKNOWN 12/16/16) onion (NAUSEA 12/16/16) Sulfa (Sulfonamide Antibiotics) (GI 12/16/16) aspirin (MILD GI 12/16/16) diazepam (GI 12/16/16) oxycodone (GI, MIGRAINE 12/16/16) propoxyphene (GI 12/16/16) Uncoded Allergies: COLOGNE (PER PT UPSETS HER WITH THE SMELL 10/17/16) HAIR SPRAY (PER PT UPSETS HER WITH THE SMELL 10/17/16) SMOKE (PER PT CANT STAND SMELLS IT UPSETS HER 10/17/16) TOBACCO (PER MAR 01/14/17) Home Med list Ascorbic Acid (Vitamin C) 500 MG TABLET 1 TAB PO TID SUPPLEMENT (Reported) Biotin 5 MG CAPSULE 1 TAB PO DAILY SUPPLEMENT (Reported) Calcium Carbonate/Vitamin D3 (Calcium 600 + Vit D Tablet) (Unknown Strength) TABLET (Unknown Dose) PO BID SUPPLEMENT (Reported) Cholecalciferol (Vitamin D3) (Vitamin D3) 5,000 UNIT TABLET 1 TAB PO DAILY SUPPLEMENT (Reported) Cyanocobalamin (Vitamin B-12) (Cyanocobalamin Injection) 1,000 MCG/1 ML VIAL 1 ML IM Q30D SUPPLEMENT (Reported) Estradiol (Climara) 0.0375 MG/24 HOUR PATCH.TDWK 1 PATCH TOP ONCE A WEEK HRT (Reported) Flaxseed Oil (Flax Oil) 1,000 MG CAPSULE 1 CAP PO DAILY SUPPLEMENT (Reported) Folic Acid 0.8 MG TABLET 1 TAB PO BID SUPPLEMENT (Reported) Furosemide (Lasix) 80 MG TABLET 0.5 TAB PO BID DIURETIC (Reported) Glucosam Sul Na/Chondr Shepard A Na (Glucosamine-Chondroitin Tablet) 750 MG-600 MG TABLET 1 TAB PO BID SUPPLEMENT (Reported) Guaifenesin/Dextromethorphan (Tussin Dm Cough Syrup) 100 MG-10 MG/5 ML SYRUP 5 -10 ML PO Q4H PRN COUGH (Reported) Hydromorphone HCl 2 MG TABLET 1 TAB PO BID PRN PAIN (Reported) Levothyroxine Sodium (Synthroid) 125 MCG TABLET 1 TAB PO DAILY THYROID ( Reported) Lidocaine 5 % ADH..PATCH 1 PAT TOP DAILY PRN PAIN (Reported) Magnesium Oxide 400 MG TABLET 1 TAB PO DAILY SUPPLEMENT (Reported) Metoprolol Tartrate (Lopressor) 50 MG TABLET 1 TAB PO BID HEART/BP (Reported) Mirabegron (Myrbetriq) 25 MG TAB.ER.24H 1 TAB PO DAILY BLADDER (Reported) Multivitamin (Multiple Vitamins) 1 EACH TABLET 1 TAB PO DAILY SUPPLEMENT ( Reported) Niacinamide (Niacin) 500 MG TABLET 1 TAB PO DAILY SUPPLEMENT (Reported) Ondansetron (Zofran Odt) 8 MG TAB.RAPDIS 1 TAB PO Q8H PRN NAUSEA (Reported) place on top of the tongue where it will dissolve, then swallow Pantoprazole Sodium (Protonix) 40 MG TABLET.DR 1 TAB PO BID GI (Reported) Potassium Chloride (Klor-Con M20) (Unknown Strength) TAB.ER.PRT (Unknown Dose) PO DAILY SUPPLEMENT (Reported) Prednisone 50 MG TABLET 100 MG PO AD STEROID (Reported) [PRIMROSE OIL] 1,000 MG PO DAILY SUPPLEMENT (Reported) Prochlorperazine Maleate 10 MG TABLET 1 TAB PO Q6 PRN N/V (Reported) Rivaroxaban (Xarelto) 15 MG TABLET 1 TAB PO 1700 BLOOD THINNER (Reported) Tiotropium [place] (Spiriva) 18 MCG CAP.W.DEV 1 CAP INH DAILY BREATHING PROBLEMS (Reported) Tramadol HCl 50 MG TABLET 1 TAB PO Q4H PRN PAIN (Reported) Vitamin E Mixed (Vitamin E) 1,000 UNIT CAPSULE 1 CAP PO DAILY SUPPLEMENT ( Reported) Past History Travel History Traveled to [place] past 21 day No Medical History Neurological: syncope EENT: submandibular masses Cardiovascular: AFIB, CAD (s/p stent), CHF, rheumatic fever Respiratory: COPD, obstructive sleep apnea Gastrointestinal: GERD, DIVERTICULOSIS Hepatic: NONE Renal: kidney stones Musculoskeletal: osteoarthritis, sciatica Psychiatric: NONE Endocrine: hypothyroidism Blood Disorders: PERNICIOUS ANEMIA B12 deficiency Cancer(s): non-hodgkin lymphoma, CHEMO INJECTION GIVEN 08/10/16 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 History of MRSA: No History of VRE: No History of CDIFF: No Isolation History: Standard Surgical History Surgical History: cholecystectomy, hernia repair-inguinal, hysterectomy (benign) , bladder surgery Past Family/Social History Family History Relations & Conditions if any MOTHER (hypertension, coronary artery disease and stroke). Relation not specified for: FH: coronary artery disease FH: hypertension FH: stroke Psychosocial History Who Do You Live With? self Services at Home: Home Health Aide, Nursing Primary Language: Israeli ETOH Use: denies use Illicit Drug Use: denies illicit drug use Living Will? no Power of Welfare Manager/HCP? yes Name of POA/HCP: Pt's son, Juliocesar Carias. Functional Ability ADLs Independent: dressing, eating, toileting, bathing. Ambulation: independent IADLs Independent: shopping, housework, finances, food prep, telephone, transportation , medication admin. Review of Systems Review of Systems Constitutional: Reports: chills. EENTM: Denies: double vision, visual changes, eye pain, eye drainage. Cardiovascular: Reports: peripheral edema. Denies: orthopena, palpitations. Respiratory: Denies: sputum production, stridor, wheezing. GI: Reports: abdominal pain, melena, bloody stool, changes in stool. Genitourinary: Denies: hematuria, hesitation, pain. Musculoskeletal: Denies: joint pain, joint swelling, muscle pain. Skin: Denies: change in skin color, change in hair/nails. Neurological/Psychological: Denies: confusion, depressed, dementia, emotional problems. Hematologic/Endocrine: Reports: no symptoms. Immunologic/Allergic: Reports: no symptoms. Exam & Diagnostic Data Last 24 Hrs of Vital Signs/I&O Vital Signs Date Time Temp Pulse Resp B/P Pulse O2 O2 Flow FiO2 Ox Delivery Rate 01/15 0230 98.2 121 18 102/64 98 Room Air 01/15 0135 97.3 130 18 121/69 99 Room Air / 2301 98.2 125 18 103/65 98 Room Air 01/14 2234 97 Room Air / 2136 98.0 133 18 103/67 96 Room Air / 1902 98/56 01/14 1858 112 16 96 Room Air 01/14 1741 97 Intake & Output 01/15 0800 01/15 0000 01/14 1600 Intake Total 0 Output Total Balance 0 Intake, Oral 0 Patient 63.503 kg 56.699 kg Weight Physical Exam General Appearance Alert, Oriented X3, Cooperative Skin No Significant Lesion HEENT Atraumatic, Mucous Membr. moist/pink Neck Supple, No JVD Lymphatic Cervical nl Cardiovascular Regular Rate, Normal S1, Normal S2 Lungs Clear to Auscultation, Normal Air Movement Abdomen tenderness to palpation on left lower quadrant. Neurological Normal Speech, Sensation Intact Extremities b/l LE edema Vascular Pulses Symmetrical Last 24 Hrs of Labs/Bill: Laboratory Tests 01/15/17 0240: Troponin I Pending 01/15/17 0000: Urine Opiates Screen 1568.00, Methadone Screen < 40, Barbiturate Screen < 60, Ur Phencyclidine Scrn < 6.00, Amphetamines Screen < 100, U Benzodiazepines Scrn < 85, Urine Cocaine Screen < 50, Urine Cannabis Screen < 5.00, Urine Color YEL, Urine Clarity CLEAR, Urine pH 6.5, Ur Specific Hutchinson <= 1.005, Urine Protein NEG, Urine Ketones NEG, Urine Nitrite NEG, Urine Bilirubin NEG, Urine Urobilinogen 0.2, Ur Leukocyte Esterase NEG, Ur Microscopic EXAM NOT REQUIRED, Urine Hemoglobin NEG, Urine Glucose NEG 01/14/17 1851: Lactic Acid 1.5, D-Dimer 1559 H 01/14/17 1826: Anion Gap 8, Estimated GFR 59 L, BUN/Creatinine Ratio 14.4, Glucose 89, Calcium 8.6, Iron 21 L, TIBC 242 L, Ferritin 512.0 H, Total Bilirubin 0.7, AST 29, ALT 35, Alkaline Phosphatase 91, Troponin I < 0.01, Tdi-S-Royxxkvwkgh Pept 6340 H, Total Protein 5.4 L, Albumin 2.7 L, Globulin 2.7, Albumin/Globulin Ratio 1.0 L, Amylase 32, Lipase 105, Vitamin B12 > 1000 H, Folate > 20.0 H, CBC w Diff NO MAN DIFF REQ, RBC 2.97 L, MCV 86.2, MCH 28.6, RDW 18.6 H, MPV 8.4, Gran % 80.8 H, Lymphocytes % 8.6 L, Monocytes % 10.0 H, Eosinophils % 0.4, Basophils % 0.2, Absolute Granulocytes 9.4 H, Absolute Lymphocytes 1.0 L, Absolute Monocytes 1.2 H, Absolute Eosinophils 0, Absolute Basophils 0, PUBS MCHC 33.2, Serum Alcohol < 10.0 Diagnostic Data Other Results EXAM TYPE: CAT - CT ABD & PELVIS W IV CONTRAST; CTA CHEST-PULMONARY EMBOLISM EXAMINATION: CT ANGIOGRAM OF THE CHEST WITH CONTRAST (CT PULMONARY ANGIOGRAM FOR PE) CLINICAL INFORMATION: Chest pain. COMPARISON: CXR from 10/18/2016 and 12/24/2016. Chest CT from 12/16/2016. TECHNIQUE: Prior to contrast administration, noncontrast localization images were obtained. Subsequently, multidetector volumetric imaging was performed from the thoracic inlet to below the diaphragms following the administration of 125 mL of Optiray 350 intravenous contrast. No contrast reaction reported. Sagittal, coronal, and MIP oblique sagittal reformatted images were obtained on the CT workstation, uploaded to PACS, and reviewed. Total exam dose-length product 544 mGy-cm FINDINGS: QUALITY OF STUDY/CONTRAST BOLUS: Satisfactory. PULMONARY ARTERIES: The pulmonary artery trunk is dilated up to 3.3 cm; this suggests possibility of pulmonary arterial hypertension. No evidence of embolic filling defects within the main, lobar or segmental vessels. THORACIC AORTA: There is atherosclerotic calcification of the thoracic aorta without aneurysm or dissection. LUNGS AND PLEURA: Lungs have mosaic attenuation, suggesting presence of air trapping phenomenon from small airways disease. Although there has been interval improvement with resolution of previous seen noted interstitial edema, small bilateral pleural effusions persist. The pleural effusions have decreased in size compared to 12/16/2016. Small, 0.2 cm and 0.3 cm noncalcified nodules of the right lung apex are stable compared to 10/18/2016 (images 73 and 83, series 2). No interval development of a suspicious lung nodule. Mild atelectasis is present within the inferior lingula and lower lobes. MEDIASTINUM: Again noted is cardiomegaly with marked enlargement of the atrial chambers. Coronary arteries are calcified. Mitral valve annulus is calcified. No pericardial effusion. The esophagus is unremarkable. LYMPHATICS: No pathologic sized axillary or hilar lymph nodes. There are stable, borderline enlarged lymph nodes in mediastinum. No progressively enlarging lymph nodes are seen. UPPER ABDOMEN: Reflux of contrast into the intrahepatic IVC and hepatic veins, indicative of cardiac dysfunction with elevated right-sided cardiac pressures. OSSEOUS STRUCTURES: No acute findings within the degenerated thoracic spine. There is a stable lytic lesion within the left scapula that involves the base of the coracoid and subarticular region of the glenoid. This was described as a lesion related to patient's lymphoma on the PET-CT exam of 07/04/2016. IMPRESSION: 1. No pulmonary embolism. 2. Atherosclerotic disease of the coronary arteries, cardiomegaly and evidence of right heart dysfunction as manifest by reflux of contrast into the IVC and hepatic veins. There has been interval improvement of previously noted pulmonary edema. The pleural effusions have decreased in size compared to 12/16/2016. 3. Lungs have mosaic attenuation, suggestive of air trapping phenomenon from small airways disease. Assessment/Plan Assessment: This is a 86-year-old lady with a past medical history of diverticulitis, IBS is presenting with 2-week-old progressively worsening abdominal pain and is found to have radiological evidence of subacute diverticulitis with possible abscess. Patient is afebrile with very mild leukocytosis. Surgical consult was obtained and recommended no surgical intervention this time. Antibiotics with ceftriaxone and metronidazole started. Due to RVR, will be admitted to telemetry for evaluation and management of her subacute diverticulitis. Assessment and plan #Abdominal pain Pt is presenting with 2-week-old progressively worsening abdominal pain and has radiological findings suggestive of a subacute diverticulitis with an abscess. And has had a prior history of diverticulitis. Plan * Will admit to telemetry for close cardiac monitoring as patient has rapid ventricular rate * Nothing by mouth for now * Will continue medical management of diverticulitis with ceftriaxone and Flagyl * Cognizant of patient history of CHF with today's elevated proBNP will institute gentle hydration * As of now, no surgical intervention warranted. Will continue to follow surgical recommendations (appreciated). * Will consider GI consult #Suicidal ideation Even though patient reported suicidal ideation to the nursing services manager, after interviewing the patient, I'm not convinced that patient has an active suicide ideation. Mentioning his kids and grandkids as one of the reason why she will not commit suicide is reassuring. Nevertheless, will maintain sitter for tonight and consult psych for clearance #History of CHF Will hold off furosemide for now as patient reports that Dr. Neal had recently stopped the medication. We'll confirm with Dr. Neal tomorrow morning # atrial fibrillation with RVR Currently rapid heart rate. Most likely secondary to pain. Will hold Zaroxolyn for now in the setting of a possible surgical or IR intervention for her diverticulitis. Cardizem 5 mg bolus # history of hypothyroidism Continue levothyroxine #History of lymphoma with current chemotherapy Will inform Dr. Florentino patient being admitted Patient reports that she has completed a chemotherapy course last month As Ranked By This Provider Problem List: 1. Suicidal thoughts 2. Intra-abdominal abscess 3. Diverticulitis Core Measures/Miscellaneous Acute Coronary Syndrome ACS Diagnosis: No Cerebrovascular Accident CVA/TIA Diagnosis: No Congestive Heart Failure CHF Diagnosis: No Venous Thromboembolism VTE Risk Factors: Age > 40, CHF or Resp failure No Mech VTE prophylaxis d/t: No contraindications No VTE Pharm Prophylaxis d/t: No contraindications VTE Diagnosis: No VTE Type: NONE VTE Confirmed by (Test): NONE Severe Sepsis Severe Sepsis Present: No Septic Shock Septic Shock Present: No Miscellaneous Documentation Attending Case [facility] Primary Care Physician: CHARITY THOMAS MD Patient 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 Level of Patient Care: Telemetry TODD CAPELLAN 01/15/17 0201: Resident Review Statement Resident Statement: examined this patient, discussed with internal communications writer, agreed with internal communications writer Other Findings: Patient is a 86-year-old woman with a past medical history significant for syncope, atrial fibrillation on Xarelto,CHF, COPD, GERD, IBS, nephrolithiasis, OA, hypothyroidism pernicious anemia, Vit B12 deficiency, non-Hodgkin's lymphoma ,large B-cell lymphoma being treated with Cytoxan, UNDERCOATER-16, vincristine, prednisone and Rituxan , last dose was January 06 patient's oncologist is Dr. STEVENSON, recently admitted to [facility] after a fall and being treated for acute on chronic CHF and neutropenia, presented to the ED with concerns of worsening abdominal pain, chest discomfort/ shortness of breath and possible suicidal ideation. Patient mentions that she has been having abdominal discomfort for almost 2 weeks now, getting worse , described the pain as sharp more on the right lower quadrant,associated with nausea , bile vomiting episodes and diarrhea. Her appetite has been poor, also reported bright red blood with defecation. She mentioned her concerns to visiting nurse, who apparently did not give attention to her symptoms, that made her frustrated about her condition ( She wanted to give up and slit her wrist). Patient mentioned that she never had suicidal or homicidal ideations in the past, and was regretful for being upset. Patient also reports nonspecific chest discomfort associated with nonproductive cough for the last couple of days denied any palpitations. Reported chills without any fever. Denied any infections. Vitals on admission: Temperature 98.0, pulse 112, respiratory 16, blood pressure 98/56, room air. General Appearance: Alert and oriented 3 , not in acute distress Skin: Grossly normal HEENT: PEERLA Neck: Supple, No JVD Cardiovascular: Irregularly irregular rate and rhythm Lungs: Chest clear to auscultation bilaterally Abdomen: Normal Bowel Sounds, right lower quadrant tenderness without any rebound Neurological: Neuro exam grossly intact, Extremities: Bilateral 1+ pitting edema in the lower extremities. Vascular: Normal Pulses . Pertinent labs on admission: Leukocytosis 11.6 without any bandemia H&H low 8.5/25.6, elevated d-dimer 1559, hyponatremia 133, elevated proBNP 6340. Urine toxicology urinalysis benign. EKG revealed atrial fibrillation without any changes from the previous EKG CT abdomen and pelvis revealed:Pancolonic diverticulosis and probable subacute diverticulitis. There is an interloop, rim-enhancing abscess extending from the posterior wall of the mid transverse colon and intimately associated with the adjacent thick-walled small bowel (images 47-54, series 5). No bowel obstruction. Small amount of ascitic fluid is present in the abdomen and pelvis. Assessment and plan: 1. Subacute diverticulitis with with CT abdomen consistent with possible abdominal abscess: * We'll admit the patient to telemetry floor(due to atrial fibrillation with RVR ) * Surgical consult has been obtained as per recommendations of no urgent need of any surgical interventions for now. * Continue with IV antibiotics including ceftriaxone and Flagyl * Gentle hydration * Xefa-dx-fchohxty pain controlled with IV Tylenol severe pain controlled with IV morphine * Keep the patient nothing by mouth for now. * Will hold Xarelto in anticipation for IR placed perc drain if the abscess doesn't resolve medically . * Consider GI consult in the morning 2. History of atrial fibrillation with RVR: * Heart rate fluctuating between 110s to 130s. * Continue home dose of metoprolol * If heart rate consistently remains high will consider starting division on Cardizem drip . 3. History of diastolic heart failure: * Patient mentioned that she was recently seen by Dr. Neal about 2 days ago and is off Lasix now. * Hold Lasix for now. * Will call Dr. 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 4. Acute on chronic normocytic anemia(history of pernicious anemia) * Monitor H&H * Will do iron studies including iron ferritin and TIBC vitamin B12 and folic acid * Keep hemoglobin above 8 * Watch for any active signs of bleed. 5. Possible suicidal ideation: * Obtain psych consult in the morning * Continue one-to-one sitter. 6. History of non-Hodgkin's lymphoma,large B-cell lymphoma being treated with Cytoxan, UNDERCOATER-16, vincristine, prednisone and Rituxan : * Patient mentioned that she finished a course of chemotherapy, last dose was given on 06 of January. * Will notify about her admission to in the morning. 7. History of hypothyroidismL * Continue home dose of levothyroxine. 8. Rmwj-cs-vzlguvcv pain controlled with Tylenol , IV morphine for severe pain 9.DVT prophylaxis Alps(in anticipation for any surgical intervention), if there are no plans for any surgery please restart her home dose of Xarelto. Patient is full code RAISSA MAYBERRY, [facility] 01/15/17 0253: Attending MD Review Statement Attending Statement Attending MD Statement: examined this patient, discuss w/resident/PA/BALANCE BRIDGE ASSEMBLER, agreed w/resident/PA/BALANCE BRIDGE ASSEMBLER Attending Assessment/Plan: 86 yo F from [facility], with h/o Afib on xarelto, NH large B-cell lymphoma on chemo (last was 2 weeks ago) with significant mediastinal lymphadenopathy, bone mets, neutropenia, CKD stage 3A, reactive airway disease with mild asthma, chronic diastolic heart failure with right heart dysfunction, pulmonary hypertension, last admitted to [place] (12/16 12/19) for rapid Afib, neutropenia and CHF, is brought in from [facility] after she made suicidal comments to her visiting nurse. Patient has tangential thoughts and needs to be redirected every time. She reports being seen in ER 2 weeks ago for abdominal pain, however ER records show she was evaluated for chest pain. She reports sharp right lower quadrant pain, associated with 1 week h/o nause, vomiting and constipation. This AM, she had small black stools but did not have complete evacuation. She also noted some blood in the toilet paper over the past few weeks, but denies h/o hemorrhoids. She has a h/o diverticulitis and had colonoscopy many years ago. She was frustrated as her visiting nurse would not pay attention to her symptoms , and hence made suicidal comments but now states that she did not really mean to harm herself. C/o occasional chest discomfort and dry cough. Vitals: tachycardic to 130's otherwise stable. Exam: dry mucous membranes, no JVD, Chest b/l clear, right chest wall port+, Heart S1S2 irregular, Abd soft, RLQ tenderness, BS+, Extremities : trace edema. Labs: WBC 11.6, H/H 8.5/25.6, elevated D-dimer, Na 133, trop neg, elevated proBNP, UA/ Utox neg. CTA chest no PE, cardiomegaly, b/l small pleural effusion, small airways disease. CT abd: Subacute diverticulitis with interloop abscess (5X3X3.6), no bowel obstruction, hypodense lesions in spleen same as previous. EKG: Afib. Echo (12-28): EF 65%, mod MR, mod to severe pulm htn, moderate TR. Initially patient was being admitted to [facility] floor, however on our evaluation, patient's HR was labile between 100- 150's at times, hence we decided to admit to Tele instead. 1. Afib with rapid ventricular response. Tele admit, monitor for arrhythmias, HR continued to remain rapid at 130 150's, will initiate IV cardizem drip for rate control. Serial EKG and troponin to rule out ACS. Cardio consult (Dr. Neal), hold off on repeat Echo for now. Resume home dose of metoprolol. 2. Diverticulitis with CT e/o abscess. Surgery was consulted in ER, no acute intervention at this point, however they have requested to hold xarelto in possible anticipation of need for surgery or IR guided perc drain. NPO, IV fluids, panculture, IV ceftriaxone and flagyl, pain control. Hold lasix. 3. NH large B-cell lymphoma, last chemo was 2 weeks ago with prednisone for 4 days post chemo. Please consult Dr. Stevenson in AM. 4. Acute on chronic anemia (normocytic), h/o pernicious anemia. Check iron studies, B12, TSH, folic acid. Guaiac all stools. Monitor for further bleeding per rectum as history seems unreliable. If any bleeding, consider GI consult in AM. Type and crossmatch, goal Hb > 8.0. 5. Suicidal ideation. Maintain sitter protocol, consult Psych in AM. DVT ppx Alps. DNR/I.
[2017-01-15 02:30] VITALS: BP 102/64
--- NOTE | 2017-01-15 04:54 | Admission Certification ---
Admission Certification Certification Statement - As attending physician, I certify that at the time of - admission, based on clinical presentation, severity of - symptoms, need for further diagnostic testing and - therapeutic interventions, and risk of adverse outcomes - without in-hospital treatment, in my clinical assessment, - this patient requires an acute hospital stay for a minimum - of two nights or longer. I have also considered psychsocial - factors such as support system, advanced age, financial - issues, cognitive issues, and failed out-patient treatments, - past re-admission history, safety of patient, and lack of - compliance as applicable. Specific rationale supporting this admission is: Diverticulitis with abscess. Afib with rapid ventricular response.
--- NOTE | 2017-01-15 07:17 | RADIOLOGY REPORT ---
EXAMINATION: XR PORTABLE CHEST CLINICAL INFORMATION: Shortness of breath and hypoxia COMPARISON: Chest x-ray 12/24/2016, CTA chest 01/14/2017. TECHNIQUE: Portable AP view of the chest was obtained. FINDINGS: The cardiomediastinal silhouette is stable. Right subclavian Port-A-Cath catheter tip is at the cavoatrial junction. The lungs are hypoexpanded. There is central vascular congestion with cephalization and Kai B lines consistent with congestive heart failure. Trace bilateral pleural effusions. No pneumothorax. IMPRESSION: Congestive heart failure with moderate pulmonary edema and trace bilateral pleural effusions.
--- NOTE | 2017-01-15 07:44 | PN- General Surgery ---
See Addendum Subjective Subjective: The patient was seen this morning postoperatively. She still reports that she is experiencing abdominal pain however the pain is not as bad as it was prior to admission. The patient reports that the pain is slightly more than her baseline. She has no other complaints at the current time and denies any nausea /vomiting. Objective Vital Signs and I&Os Vital Signs Date Time Temp Pulse Resp B/P Pulse O2 O2 Flow FiO2 Ox Delivery Rate 01/15 0521 118 118/60 01/15 0230 98.2 121 18 102/64 98 Room Air 01/15 0135 97.3 130 18 121/69 99 Room Air 01/14 2301 98.2 125 18 103/65 98 Room Air 01/14 2234 97 Room Air 01/14 2136 98.0 133 18 103/67 96 Room Air 01/14 1902 98/56 0305 1858 112 16 96 Room Air 01/14 1741 97 Intake & Output 01/15 0800 / 0000 03/05 1600 01/14 0800 01/14 0000 /04 1600 Intake Total 0 Output Total Balance 0 Intake, Oral 0 Patient 140 lb 125 lb Weight Physical Exam: Gen.: Alert and in no obvious distress Skin: Warm and dry Abdomen: Soft, mildly distended, mild upper abdominal tenderness without rebound or guarding, bowel sounds positive Extremities: Bilateral lower extremities are warm without calf tenderness. Assessment/Plan Assessment/Plan Assessment: 86-year-old female found to have a questionable intra-abdominal abscess on CAT scan. The patient has a relatively benign exam and a nonsurgical abdomen. Recommendations: Continue nothing by mouth and IV hydration IV antibiotics GI and DVT prophylaxis Dr. Parra to see the patient today and evaluates the CAT scan for the possible need of a percutaneous drain by IR versus conservative management with IV antibiotics Continue care per primary team
[2017-01-15 08:25] VITALS: BP 110/58
--- NOTE | 2017-01-15 10:04 | PN- Housestaff ---
JESSICABRITT 01/15/17 1003: Subjective Follow-up For: Diverticulitis with possible intra-abdominal abscess A. fib with rapid ventricular response NH large B-cell lymphoma Suicidal ideation Complaints: feels distressed, does not want to talk to anyone. Tele-Events Since Last Visit: Tachycardia up to 150s. A. fib 110 to 130. Some PVCs Subjective: Patient was admitted yesterday with abdominal pain associated with nausea vomiting and constipation. Was found to have diverticulitis with questionable intra-abdominal abscess. She was suicidal with tangential thoughts and was brought in by her visiting nurse to the ED. Patient appears to be in moderate distress. Complains of upper abdominal tenderness but no nausea and vomiting. She has a sitter in her room. Her thoughts are tangential and she feels frustrated with all her medical condition and frequent hospitalizations. Does not want to have any blood work, imaging or treatment for her condition. Denies suicidal/homicidal ideations. Review of Systems Constitutional: Reports: malaise, weakness. EENTM: Reports: no symptoms. Cardiovascular: Reports: no symptoms. Respiratory: Reports: no symptoms. Gastrointestinal: Reports: abdominal pain, changes in stool (dark stools). Genitourinary: Reports: no symptoms. Musculoskeletal: Reports: no symptoms. Skin: Reports: no symptoms. Neurological/Psychological: Reports: confusion. Objective Last 24 Hrs of Vital Signs/I&O Vital Signs Date Time Temp Pulse Resp B/P Pulse O2 O2 Flow FiO2 Ox Delivery Rate 01/15 0825 98.0 138 18 110/58 94 Room Air 01/15 0521 118 118/60 / 0230 98.2 121 18 102/64 98 Room Air 01/15 0135 97.3 130 18 121/69 99 Room Air / 2301 98.2 125 18 103/65 98 Room Air 01/14 2234 97 Room Air / 2136 98.0 133 18 103/67 96 Room Air / 1902 98/56 / 1858 112 16 96 Room Air / 1741 97 Intake & Output 01/15 1600 06 0800 / 0000 Intake Total 490 0 Output Total 650 Balance -160 0 Intake, IV 390 Intake, Oral 100 0 Number 0 Bowel Movements Output, Urine 650 Patient 63.503 kg 56.699 kg Weight Physical Exam General Appearance: Alert, Moderate Distress, very tangential thoughts.alert and oriented 2. Skin: No Rashes, No Breakdown, No Significant Lesion, right chest wall port HEENT: PERRLA, EOMI, dry mucous membranes Neck: Supple, No JVD Lymphatic: Cervical nl Cardiovascular: Normal S1, Normal S2, tachycardic, irregularly irregular heart rate Lungs: Clear to Auscultation, Normal Air Movement Abdomen: Soft, tenderness in the epigastric and right lower quadrant Neurological: Normal Gait, Normal Tone, Sensation Intact, Cranial Nerves 3-12 NL Extremities: trace bilateral pedal edema Current Medications: Current Medications Sig/Timi Start time Last Medication Dose Route Stop Time Status Admin Acetaminophen 650 MG Q6P PRN 01/15 0200 AC PO Acetaminophen 1,000 MG Q6 PRN 01/15 0200 AC IV Ceftriaxone Sodium 1,000 MG DAILY 01/15 1000 AC IV Ceftriaxone Sodium 0 .STK-MED ONE 01/14 2241 DC .ROUTE Ceftriaxone Sodium 1,000 MG ONCE ONE 01/14 2230 DC 01/14 IV 01/14 223 2252 Diltiazem HCl 125 MG Q24H 01/15 0530 AC 01/15 Sodium Chloride 100 ML IV 0533 Diltiazem HCl 5 MG ONCE ONE 01/15 0515 DC 01/15 IV PUSH 01/15 0516 0521 Guaifenesin/ 10 ML Q4H PRN 01/15 0200 AC Dextromethorphan PO Levothyroxine Sodium 0.125 MG DAILY AC 01/15 0700 AC 01/15 PO 0559 Magnesium Oxide 400 MG DAILY 01/15 1000 AC PO Metoprolol Tartrate 50 MG BID 01/15 1000 DC PO Metoprolol Tartrate 50 MG BID 01/15 0500 AC PO Metronidazole 500 MG IQ8 01/15 0800 AC N/A 1 UNIT IV Metronidazole 500 MG ONCE ONE 01/14 223 DC 01/14 N/A 1 UNIT IV 01/14 2329 2252 Morphine Sulfate 2 MG Q4P PRN 01/15 0200 AC IV Morphine Sulfate 0 .STK-MED ONE 01/14 1856 DC .ROUTE Morphine Sulfate 4 MG ONCE ONE 01/14 1730 DC 01/14 IV 01/14 173 1857 Nicotinic Acid 500 MG WITH MEALS 01/15 08 AC PO Potassium Chloride 20 MEQ DAILY 01/15 1000 AC PO Prochlorperazine 10 MG Q6 PRN 01/15 0200 AC PO Sodium Chloride 1,000 ML Q13H 01/15 0200 AC 01/15 IV 01/15 1459 0258 Sodium Chloride 500 ML BOLUS ONE 01/14 2315 DC 01/15 IV 01/15 0014 0159 Sodium Chloride 500 ML BOLUS ONE 01/14 2200 DC 01/14 IV 01/14 2259 2234 Tiotropium [place] 1 PUF DAILY 01/15 1000 AC INH Vitamin E 100 IU DAILY 01/15 1000 AC PO Last 24 Hrs of Lab/Bill Results Last 24 Hrs of Labs/Mics: Laboratory Tests 01/15/17 0240: Troponin I 0.01 01/15/17 0000: Urine Opiates Screen 1568.00, Methadone Screen < 40, Barbiturate Screen < 60, Ur Phencyclidine Scrn < 6.00, Amphetamines Screen < 100, U Benzodiazepines Scrn < 85, Urine Cocaine Screen < 50, Urine Cannabis Screen < 5.00, Urine Color YEL, Urine Clarity CLEAR, Urine pH 6.5, Ur Specific [place] <= 1.005, Urine Protein NEG, Urine Ketones NEG, Urine Nitrite NEG, Urine Bilirubin NEG, Urine Urobilinogen 0.2, Ur Leukocyte Esterase NEG, Ur Microscopic EXAM NOT REQUIRED, Urine Hemoglobin NEG, Urine Glucose NEG 01/14/17 1851: Lactic Acid 1.5, D-Dimer 1559 H 01/14/17 1826: Anion Gap 8, Estimated GFR 59 L, BUN/Creatinine Ratio 14.4, Glucose 89, Calcium 8.6, Iron 21 L, TIBC 242 L, Ferritin 512.0 H, Total Bilirubin 0.7, AST 29, ALT 35, Alkaline Phosphatase 91, Troponin I < 0.01, Xwx-J-Gajdqvglwll Pept 6340 H, Total Protein 5.4 L, Albumin 2.7 L, Globulin 2.7, Albumin/Globulin Ratio 1.0 L, Amylase 32, Lipase 105, Vitamin B12 > 1000 H, Folate > 20.0 H, CBC w Diff NO MAN DIFF REQ, RBC 2.97 L, MCV 86.2, MCH 28.6, RDW 18.6 H, MPV 8.4, Gran % 80.8 H, Lymphocytes % 8.6 L, Monocytes % 10.0 H, Eosinophils % 0.4, Basophils % 0.2, Absolute Granulocytes 9.4 H, Absolute Lymphocytes 1.0 L, Absolute Monocytes 1.2 H, Absolute Eosinophils 0, Absolute Basophils 0, PUBS MCHC 33.2, Serum Alcohol < 10.0 Assessment/Plan Assessment: 86 yo F from Senior [facility], with h/o Afib on xarelto, NH large B-cell lymphoma on chemo (last was 2 weeks ago) with significant mediastinal lymphadenopathy, bone mets, neutropenia, CKD stage 3A,mild asthma, chronic diastolic heart failure with right heart dysfunction, pulmonary hypertension who was admitted yesterday for worsening abdominal pain nausea, vomiting and constipation. She was found to be tachycardic to 130s in the ED. Labs: WBC 11.6, H/H 8.5/25.6, elevated D-dimer, Na 133, trop neg, proBNP 6340, UA/ Utox neg. EKG: Afib. Echo (2-16): EF 65%, mod MR, mod to severe pulm htn, moderate TR. Echo (2-16): EF 65%, mod MR, mod to severe pulm htn, moderate TR Chest x-ray:Congestive heart failure with moderate pulmonary edema and trace bilateral pleural effusions. CTA chest no PE, cardiomegaly, b/l small pleural effusion, small airways disease. CT ab/Pel: Subacute diverticulitis with rim-enhancing abscess ([id number]), extending from the posterior wall of the mid transverse colon, no bowel obstruction, hypodense lesions in spleen same as previous. Plan: #1 Diverticulitis with questionable intra-abdominal abscess. -Maintaining patient nothing by mouth -Gentle hydration with IV normal saline@ 50 cc /hr( pn congestion on cxr) -Pain control with IV morphine and IV Tylenol -Continue GI prophylaxis -Pancultures pending -IV ceftriaxone and Flagyl day 2 -Surgery on board. Dr. Parra to see the patient later today. Conservative management at this point. If the abscess does not improve with IV antibiotics, patient might need percutaneous drain by IR -ID consult appreciated -Xarelto is on hold in anticipation of an IR procedure. #2 A. fib with rapid ventricular response -Patient being monitored on telemetry. Tachycardic to 150s on the monitor with some PACs -ACS ruled out with negative troponins and EKG -Started on Cardizem drip after IV Cardizem push -Home dose of metoprolol 50 mg twice a day has been resumed -Cardiology consult with Dr. Neal placed #3 History of HFwPEF -Chest x-ray shows evidence of congestion. -Strict I's and O's, weight checks -Patient refuses to take Lasix as it was stopped by her pecan huller 2 days ago. -Cardiology consult with Dr. Neal #4 Non-Hodgkin large B-cell lymphoma -Last chemotherapy 2 weeks ago with prednisone for 4 days post chemotherapy. -Courtsey call to Dr. Florentino has been placed. #5 Acute on chronic anemia: Patient has history of pernicious anemia in the past. -We GUAIC stools -Low iron, low TIBC, high ferritin? #6 Suicidal ideation -City protocol -Psych consult has been placed Problem List: 1. ATRIAL FIBRILATION 2. CHF (congestive heart failure) 3. Non Hodgkin's lymphoma 4. Suicidal thoughts 5. Diverticulitis 6. Intra-abdominal abscess Pain Ratin Pain Location: abdomen Pain Goal: Pain 4 or less Pain Plan: IV Tylenol and IV morphine Tomorrow's Labs & Rationales: cbc. H infection BEP.. On Lasix. RUPESH HERNANDEZ MD 01/15/17 1147: Attending MD Review Statement Attending Statement Attending MD Statement: examined this patient, discuss w/resident/PA/DIRECTOR OF TEACHING AND LEARNING, agreed w/resident/PA/DIRECTOR OF TEACHING AND LEARNING, reviewed EMR data (avail), discussed with nursing, discussed with case mgmt, reviewed images Attending Assessment/Plan: 86-year-old female with past medical history of non-Hodgkin's lymphoma with lytic lesion in the left acetabulum and splenic lesions actively getting chemotherapy, last chemotherapy was [address] Florentino. Also has underlying atrial fibrillation on Xarelto, CKD and is here with abdominal pain and change in bowel habits with CT showing diverticulitis and possible abscess. She is nothing by mouth on IV fluids and IV ceftriaxone and Flagyl with general surgery on consult. She is also having rapid atrial fibrillation that we are managing with IV Cardizem and by mouth metoprolol. At this point I called ID to see her as I'm uncomfortable with this possibility of an abscess and I will also need help with choice and duration of antibiotics. We will also touch base with surgery about whether we should push for CT-guided drainage. The Xarelto is on hold for the possibility of any invasive procedure. I will talk to Dr. Florentino about her care as requested by the patient and follow-up closely.
--- NOTE | 2017-01-15 10:55 | Cons- Psychiatry ---
Psychiatric Consult Date of Consult: 01/15/17 Reason for Consult: "Suicidal ideation" History of Present Illness: 86 F SANA from assisted living 01/14/17 180 with CC of abdominal pain and suicidal statement to her nurse. She is treated for lymphona by Dr. Stevenson, and for her atrial fibrillation by Dr. Neal. Denies prior psychiatric diagnosis or treatment. Denies prior suicidal ideation or attempt. She lives alone in assisted living housing. She has support from nearby family, and is looking forward to seeing them again. Collateral from the patient's son, Juliocesar, with her written permission: The patient had a suicide attempt by taking sleeping pills when she was approximately 23 y.o. She was from her at that time. Juliocesar is unsure if she received treatment for that. No known psychiatric history since then. Family history includes a suicide attempt by one of Juliocesar' great aunts, who was committed to [facility] for a long time; she appeared to be depressed whenever he saw her. Allergies: Coded Allergies: Penicillins (RASH 12/16/16) acetaminophen (BURNING FEELING IN STOMACH 12/16/16) animal dander (PER 01/14/17) garlic (NAUSEA 12/16/16) latex (SORES 12/16/16) mold (UNKNOWN 12/16/16) onion (NAUSEA 12/16/16) Sulfa (Sulfonamide Antibiotics) (GI 12/16/16) aspirin (MILD GI 12/16/16) diazepam (GI 12/16/16) oxycodone (GI, MIGRAINE 12/16/16) propoxyphene (GI 12/16/16) Uncoded Allergies: COLOGNE (PER PT UPSETS HER WITH THE SMELL 10/17/16) HAIR SPRAY (PER PT UPSETS HER WITH THE SMELL 10/17/16) SMOKE (PER PT CANT STAND SMELLS IT UPSETS HER 10/17/16) TOBACCO (PER 01/14/17) Current Medications: Current Medications Sig/Timi Start time Last Medication Dose Route Stop Time Status Admin Acetaminophen 650 MG Q6P PRN 01/15 0200 AC PO Acetaminophen 1,000 MG Q6 PRN 01/15 0200 AC IV Ceftriaxone Sodium 1,000 MG DAILY 01/15 1000 AC IV Ceftriaxone Sodium 0 .STK-MED ONE 03/05 2241 DC .ROUTE Ceftriaxone Sodium 1,000 MG ONCE ONE 01/14 2230 DC 01/14 IV 01/14 2231 2252 Diltiazem HCl 125 MG Q24H 01/15 0530 AC 01/15 Sodium Chloride 100 ML IV 0533 Diltiazem HCl 5 MG ONCE ONE 01/15 0515 DC 01/15 IV PUSH 01/15 0516 0521 Guaifenesin/ 10 ML Q4H PRN 01/15 0200 AC Dextromethorphan PO Levothyroxine Sodium 0.125 MG DAILY AC 01/15 0700 AC 01/15 PO 0559 Magnesium Oxide 400 MG DAILY 01/15 1000 AC PO Metoprolol Tartrate 50 MG BID 01/15 1000 DC PO Metoprolol Tartrate 50 MG BID 01/15 0500 AC PO Metronidazole 500 MG IQ8 01/15 0800 AC N/A 1 UNIT IV Metronidazole 500 MG ONCE ONE 01/14 2230 DC 01/14 N/A 1 UNIT IV 01/14 2329 2252 Morphine Sulfate 2 MG Q4P PRN 01/15 0200 AC IV Morphine Sulfate 0 .STK-MED ONE 01/14 1856 DC .ROUTE Morphine Sulfate 4 MG ONCE ONE 01/14 1730 DC 01/14 IV 01/14 1731 1857 Nicotinic Acid 500 MG WITH MEALS 01/15 0800 AC PO Potassium Chloride 20 MEQ DAILY 01/15 1000 AC PO Prochlorperazine 10 MG Q6 PRN 01/15 0200 AC PO Sodium Chloride 1,000 ML Q13H 01/15 0200 AC / IV 01/15 1459 0258 Sodium Chloride 500 ML BOLUS ONE 01/14 2315 DC 01/15 IV 01/15 0014 0159 Sodium Chloride 500 ML BOLUS ONE 01/14 2200 DC / IV 01/14 2259 2234 Tiotropium [place] 1 PUF DAILY 01/15 1000 AC INH Vitamin E 100 IU DAILY 01/15 1000 AC PO Past History Past Medical History Neurological: syncope EENT: submandibular masses Cardiovascular: AFIB, CAD (s/p stent), CHF, rheumatic fever Respiratory: COPD, obstructive sleep apnea Gastrointestinal: GERD, DIVERTICULOSIS Hepatic: NONE Renal: kidney stones Musculoskeletal: osteoarthritis, sciatica Psychiatric: report of suicide attempt as a young woman by son Endocrine: hypothyroidism Blood Disorders: PERNICIOUS ANEMIA B12 deficiency Cancer(s): non-hodgkin lymphoma, CHEMO INJECTION GIVEN [employer]AL [employer] YARD/Reproductive: HYSTERECTOMY Past Surgical History Surgical History: cholecystectomy, hernia repair-inguinal, hysterectomy (benign) , bladder surgery Psychosocial History Strengths/Capabilities: Goal-directed, future oriented Psychiatric Treatment History Psych Treatment Psychiatric Treatment No (the patient denies treatment) Risk Factors: age (under 24/over 65), chronic/serious med cond., history of suicide atmpts Substance Use/Abuse History Drug Use/Abuse Substances Used/Abused No (denies) Substance Abuse Treatment Substance Abuse Treatment Past Substance Abuse [place] No Assessment/Plan Mental Status Mental Status Exam: A+OX4 Denies AVH; presents no tonia delusions Speech is normal in volume and rate, mildly pressured. Denies racing thoughts Sleep poor at home lately, due to abdominal pain Depression 0/10, anxiety 0/10; 10/10 would be the most severe. Endorses helplessness sometimes, "I can't make myself better." Denies feelings of hopelessness, denies worthlessness. Reports she made a statement to her visiting nurse that she "might as well get into the tub and slit her wrists, if no one will listen to me," in frustration about reporting her pain. She denies prior psychiatric diagnoses or treatment. The patient denies SI/HI. Lab Results: UTox 01/15/17 0000: Opiates present, but non-positive; the patient is on prescribed morphine. Negative for other street drugs; negative for alcohol. 01/14/17: WBC 11.6H, sodium 136L, eGFR 59L, iron 21L, TIBC 242L, ferritin 512L, pro-BNP 6340H, vit B12 >1000H, folate >20H. TSH/FT4 not checked recently. UA clear Diffential Diagnosis: Rule out depressive disorder NOS Impression: The patient had been frustrated with reporting her abdominal pain to her nurse, and felt that her concerns were not being heard, and consequently made a statement that she "might as well get in the tub and slit her wrists." She admits this was an unfortunate thing to say, and will avoid irresponsible remarks in the future. She verbalizes understanding that if hse ever has thoughts of self-harm, or harm to others, she will call 911. She has no history of suicidal ideation, nor attempt, and no psychiatric history. She is not currently a danger to herself or others. The patient cites her children, grandchildren and great grandchildren as protective factors. The patient denies symptoms of depression or anxiety, but feels helpless sometimes because she cannot make her self get better. She declines prescription sleep aids, but will accept melatonin. Complains that the food at her LONG TERM is prepared food with considerable salt. In light of her son's report of a suicide attempt by taking sleeping pills when she was in her 20s, we would like the patient to come to [facility] outpatient psychiatry for further evaluation and treatment. The son is unsure that the patient ever received any treatment for her suicide attempt. There is also a family history of suicide attempts and depression. Although she is clear to discharge form a psychiatric viewpoint, we will talk to her again on 01/16/2017, probably after her surgical procedure, and extend an invitation for her to come to OPS. Provisional Treatment Plan: 1. The patient does not need a safety monitor for reasons of suicidality or harm to others, at this time. 2. Consider melatonin 3 mg PO at bedtime as needed. 3. We will offer the patient the opportunity to come to OPS for further evaluation. Thank-you for asking us to assist with Shayna Madrid's care. We will continue to follow along with you. Richar Gomez APRN, Pager [phone]
--- NOTE | 2017-01-15 11:37 | Cons- Cardiology ---
General Information and HPI Consulting Request Date of Consult: 01/15/17 Requested By: MARY MAYBERRY,RUPESH Winslow History of Present Illness: Shayna Madrid is an 86 year old female who carries a history of coronary artery disease, atrial fibrillation, and asthma. 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 She was brought to the ER for evaluation of a flip suicidal comment and was found to be tachycardic, short of breath with fluid overload. She does report orthopnea and exertional shortness of breath although her leg swelling has decreased dramatically from her baseline. She does not have chest discomfort, lightheadedness or palpitations. Shayna Madrid does feel persistently tired since her diagnosis of Lymphoma and since beginning chemotherapy. The lymphoma also gives her diffuse achiness with pain in her back, epgastric region chest and abdomen. She has also lost weight. At her baseline, Shayna has mild exertional shortness of breath without orthopnea. She will also become transiently lightheaded if arising quickly from a sitting or supine position although this symptom appears to also be exacerbated by turning her head and I think are more consistent with a labyrinthitis. It should be recalled that she had an enlarged salivary gland on the right lower jaw that turned out to be a lymphoma. Shayna Madrid was taken off her Lasix last week due to concerns of dehydration. At that time she was not eating much. Her last echocardiogram showed a normal EF of 70% with biatrial enlargement, moderate mitral, tricuspid and pulmonic regurgitation and mild to moderate aortic regurgitation. Her aortic valve showed moderate stenosis. She also had moderate mitral stenosis with mild pulmonary hypertension. Due to prior lightheadedness we discontinued lisinopril and decreased her metoprolol to 50mg BID. Her lightheadedness is improved but not gone. She was last admitted to for evaluation of an atypical chest discomfort and SOB in May 2013. She ruled out for myocardial infarction at that time. Shayna Madrid was very concerned about the possibility of aortic stenosis and therefore she saw Dr. Gustabo Barone who reassured her that she did not have any significant aortic stenosis and did not need any intervention for her aortic valve at this point in time. On occasion, the patient will report some epigastric discomfort radiating up to her chest and she has complained of some atypical nonexertional chest discomfort behind her left breast which often occurs at rest. In consideration of the above symptoms, I did pursue a stress test which showed a small area of apical ischemia. I did opt to pursue cardiac catheterization for an unequivocal diagnosis. This procedure was performed in December of 2012 and showed the following anatomy: The left main demonstrated luminal irregularities. The LAD has a 30% non-flow limiting mid lesion with luminal irregularities throughout the rest of its course. The left circumflex has luminal irregularities in the AV groove as well as in the obtuse marginal II. There is a very small obtuse marginal one with a stable 80% ostial stenosis. The RCA is dominant with luminal irregularities up to 30-40% in the ostial region of this vessel. Left ventriculography showed an overall EF of 60% with mild to moderate mitral regurgitation. It is my feeling that the patient had nonobstructive coronary artery disease and medical therapy has been pursued. The patient's most recent echo shows a normal EF of 60% with mild biatrial enlargement. She ahs moderate eccentric mitral regurgitation, mild tricuspid regurgitation, and mild to moderate aortic insufficiency. Mild pulmonic regurgitation was also noted. Allergies/Medications Allergies: Coded Allergies: Penicillins (RASH 12/16/16) acetaminophen (BURNING FEELING IN STOMACH 12/16/16) animal dander (PER 01/14/17) garlic (NAUSEA 12/16/16) latex (SORES 12/16/16) mold (UNKNOWN 12/16/16) onion (NAUSEA 12/16/16) Sulfa (Sulfonamide Antibiotics) (GI 12/16/16) aspirin (MILD GI 12/16/16) diazepam (GI 12/16/16) oxycodone (GI, MIGRAINE 12/16/16) propoxyphene (GI 12/16/16) Uncoded Allergies: COLOGNE (PER PT UPSETS HER WITH THE SMELL 10/17/16) HAIR SPRAY (PER PT UPSETS HER WITH THE SMELL 10/17/16) SMOKE (PER PT CANT STAND SMELLS IT UPSETS HER 10/17/16) TOBACCO (PER 01/14/17) Home Med List: Ascorbic Acid (Vitamin C) 500 MG TABLET 1 TAB PO TID SUPPLEMENT (Reported) Biotin 5 MG CAPSULE 1 TAB PO DAILY SUPPLEMENT (Reported) Calcium Carbonate/Vitamin D3 (Calcium 600 + Vit D Tablet) (Unknown Strength) TABLET (Unknown Dose) PO BID SUPPLEMENT (Reported) Cholecalciferol (Vitamin D3) (Vitamin D3) 5,000 UNIT TABLET 1 TAB PO DAILY SUPPLEMENT (Reported) Cyanocobalamin (Vitamin B-12) (Cyanocobalamin Injection) 1,000 MCG/1 ML VIAL 1 ML IM Q30D SUPPLEMENT (Reported) Estradiol (Climara) 0.0375 MG/24 HOUR PATCH.TDWK 1 PATCH TOP ONCE A WEEK HRT (Reported) Flaxseed Oil (Flax Oil) 1,000 MG CAPSULE 1 CAP PO DAILY SUPPLEMENT (Reported) Folic Acid 0.8 MG TABLET 1 TAB PO BID SUPPLEMENT (Reported) Furosemide (Lasix) 80 MG TABLET 0.5 TAB PO BID DIURETIC (Reported) Glucosam Sul Na/Chondr Shepard A Na (Glucosamine-Chondroitin Tablet) 750 MG-600 MG TABLET 1 TAB PO BID SUPPLEMENT (Reported) Guaifenesin/Dextromethorphan (Tussin Dm Cough Syrup) 100 MG-10 MG/5 ML SYRUP 5 -10 ML PO Q4H PRN COUGH (Reported) Hydromorphone HCl 2 MG TABLET 1 TAB PO BID PRN PAIN (Reported) Levothyroxine Sodium (Synthroid) 125 MCG TABLET 1 TAB PO DAILY THYROID ( Reported) Lidocaine 5 % ADH..PATCH 1 PAT TOP DAILY PRN PAIN (Reported) Magnesium Oxide 400 MG TABLET 1 TAB PO DAILY SUPPLEMENT (Reported) Metoprolol Tartrate (Lopressor) 50 MG TABLET 1 TAB PO BID HEART/BP (Reported) Mirabegron (Myrbetriq) 25 MG TAB.ER.24H 1 TAB PO DAILY BLADDER (Reported) Multivitamin (Multiple Vitamins) 1 EACH TABLET 1 TAB PO DAILY SUPPLEMENT ( Reported) Niacinamide (Niacin) 500 MG TABLET 1 TAB PO DAILY SUPPLEMENT (Reported) Ondansetron (Zofran Odt) 8 MG TAB.RAPDIS 1 TAB PO Q8H PRN NAUSEA (Reported) place on top of the tongue where it will dissolve, then swallow Pantoprazole Sodium (Protonix) 40 MG TABLET.DR 1 TAB PO BID GI (Reported) Potassium Chloride (Klor-Con M20) (Unknown Strength) TAB.ER.PRT (Unknown Dose) PO DAILY SUPPLEMENT (Reported) Prednisone 50 MG TABLET 100 MG PO AD STEROID (Reported) [PRIMROSE OIL] 1,000 MG PO DAILY SUPPLEMENT (Reported) Prochlorperazine Maleate 10 MG TABLET 1 TAB PO Q6 PRN N/V (Reported) Rivaroxaban (Xarelto) 15 MG TABLET 1 TAB PO 1700 BLOOD THINNER (Reported) Tiotropium [place] (Spiriva) 18 MCG CAP.W.DEV 1 CAP INH DAILY BREATHING PROBLEMS (Reported) Tramadol HCl 50 MG TABLET 1 TAB PO Q4H PRN PAIN (Reported) Vitamin E Mixed (Vitamin E) 1,000 UNIT CAPSULE 1 CAP PO DAILY SUPPLEMENT ( Reported) Past History Travel History Traveled to [place] past 21 day No Medical History Blood Transfusion Hx: No Neurological: syncope EENT: submandibular masses Cardiovascular: AFIB, CAD (s/p stent), CHF, rheumatic fever Respiratory: COPD, obstructive sleep apnea Gastrointestinal: GERD, DIVERTICULOSIS Hepatic: NONE Renal: kidney stones Musculoskeletal: osteoarthritis, sciatica Psychiatric: NONE Endocrine: hypothyroidism Blood Disorders: PERNICIOUS ANEMIA B12 deficiency Cancer(s): non-hodgkin lymphoma, 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 Surgical History Surgical History: cholecystectomy, hernia repair-inguinal, hysterectomy (benign) , bladder surgery Family History Relations & Conditions If Any: MOTHER (hypertension, coronary artery disease and stroke). Relation not specified for: FH: coronary artery disease FH: hypertension FH: stroke Psychosocial History Where Do You Live? Home Who Do You Live With? self Services at Home: Home Health Aide, Nursing Primary Language: Finnish Smoking Status: Never Smoked ETOH Use: denies use Illicit Drug Use: denies illicit drug use Living Will? no Power of Dragger Out/HCP? yes Name of POA/HCP: Pt's son, Juliocesar Saldana. Functional Ability ADLs Independent: dressing, eating, toileting, bathing. Ambulation: independent IADLs Independent: shopping, housework, finances, food prep, telephone, transportation , medication admin. Exam & Diagnostic Data Vital Signs and I&O Vital Signs Date Time Temp Pulse Resp B/P Pulse O2 O2 Flow FiO2 Ox Delivery Rate 01/15 1000 Nasal 2.0L Cannula 01/15 0825 98.0 138 18 110/58 94 Room Air 01/15 0521 118 118/60 01/15 0230 98.2 121 18 102/64 98 Room Air 01/15 0135 97.3 130 18 121/69 99 Room Air 01/14 2301 98.2 125 18 103/65 98 Room Air 01/14 2234 97 Room Air 01/14 2136 98.0 133 18 103/67 96 Room Air / 1902 98/56 03/ 1858 112 16 96 Room Air 01/14 1741 97 Intake & Output 01/15 1600 /06 0800 03/ 0000 / 1600 / 0800 03/ 0000 Intake Total 490 0 Output Total 650 Balance -160 0 Intake, IV 390 Intake, Oral 100 0 Number 0 Bowel Movements Output, Urine 650 Patient 140 lb 125 lb Weight Physical Exam: General: WD/ WN female in NAD; alert and oriented x 3 HEENT: NC/AT, PERRL, EOMI, clear oropharynx Neck: no JVD, no carotid bruit Heart: irregularly irregular with tachycardia, no murmur Lungs: clear bilaterally Abdomen: soft, NT, +ve bowel sounds Extremties: no edema Assessment/Plan Assessment/Plan * Shayna Madrid is short of breath with orthopnea and has a chest X-ray that is consistent with pulmonary edema although I have not auscultated any crackles. I would restart Lasix at 40mg IV BID for now and follow her BUN, creatinine and potassium. Continue her current dose of Metoprolol. I believe that some of her fatigue and tachycaria is due to her anemia which, in turn, is likely due to her chemotherapy. She is tolerating this tachycardia reasonably well at this point in time. We will monitor it expectantly. Guaiac all stools. Consult Acknowledgment - Thank you for your consult request.
[2017-01-15 14:38] LABS: ABSOLUTE BASOPHIL COUNT 0.1 /CUMM (0.0-0.2); ABSOLUTE EOSINOPHIL COUNT 0 /CUMM (0.0-0.7); ABSOLUTE GRANULOCYTE CT 10.8 /CUMM (1.4-6.5); ABSOLUTE LYMPH COUNT 1.6 /CUMM (1.2-3.4); ABSOLUTE MONOCYTE COUNT 1.2 /CUMM (0.10-0.60); BASOPHIL % 0.7 % (0.0-2.0); EOSINOPHIL % 0.1 % (0-5); GRANULOCYTE % 78.5 % (42.2-75.2); HEMATOCRIT 26.4 % (37-47); MEAN CORPUSCULAR HGB 28.1 PG (27.0-31.0); MEAN CORPUSCULAR HGB CONC 32.5 G/DL (33.0-37.0); MEAN CORPUSCULAR VOLUME 86.4 FL (81.0-99.0); MEAN PLATELET VOLUME 8.6 FL (7.4-10.4); PLATELET COUNT 295 /CUMM (130-400); RBC DISTRIBUTION WIDTH 18.4 % (11.5-14.5); RED BLOOD CELL CT 3.06 /CUMM (4.20-5.40); WHITE BLOOD CELL COUNT 13.8 /CUMM (4.8-10.8)
--- NOTE | 2017-01-15 15:44 | Cons- Infect Disease ---
General Information and HPI Consulting Request Date of Consult: 01/15/17 Requested By: RUPESH HERNANDEZ MD Reason for Consult: Rule out diverticular abscess Source of Information: patient, old records History of Present Illness: This is an 86-year-old woman with non-Hodgkin's lymphoma, diagnosed over 6 months prior to admission, and treated with Cytoxan, CLAIMS ASSOCIATE-16 and prednisone over the past 5 months via a Port-A-Cath that was inserted 4 1/2 months prior to admission, with her most recent treatment 10 days prior to admission, last hospitalized one month prior to admission after a fall, at which time she was found to be neutropenic but afebrile, followed off antibiotics with a CT of the chest, abdomen and pelvis negative for any acute process, admitted on January 14 after suicidal ideation at home with the complaint of several weeks of periumbilical abdominal pain associated with nausea and dry heaves, constipation , shortness of breath, with cough and chest discomfort, dysuria, undocumented fevers and chills. On admission she was afebrile. Laboratory data revealed a white blood cell count of 12,000, with normal liver enzymes. Urinalysis negative. CTA of the chest, abdomen and pelvis pancolonic diverticulosis with probable subacute diverticulitis, with an interloop, rim-enhancing abscess extending from the posterior wall of the midtransverse colon and intimately associated with the adjacent thick-walled small bowel. She was begun on Ceftriaxone and Flagyl. She has remained afebrile since admission but continues to complain of abdominal discomfort and dry heaves. Allergies/Medications Allergies: Coded Allergies: Penicillins (RASH 12/16/16) acetaminophen (BURNING FEELING IN STOMACH 12/16/16) animal dander (PER MAR 01/14/17) garlic (NAUSEA 12/16/16) latex (SORES 12/16/16) mold (UNKNOWN 12/16/16) onion (NAUSEA 12/16/16) Sulfa (Sulfonamide Antibiotics) (GI 12/16/16) aspirin (MILD GI 12/16/16) diazepam (GI 12/16/16) oxycodone (GI, MIGRAINE 12/16/16) propoxyphene (GI 12/16/16) Uncoded Allergies: COLOGNE (PER PT UPSETS HER WITH THE SMELL 10/17/16) HAIR SPRAY (PER PT UPSETS HER WITH THE SMELL 10/17/16) SMOKE (PER PT CANT STAND SMELLS IT UPSETS HER 10/17/16) TOBACCO (PER MAR 01/14/17) Home Med List: Ascorbic Acid (Vitamin C) 500 MG TABLET 1 TAB PO TID SUPPLEMENT (Reported) Biotin 5 MG CAPSULE 1 TAB PO DAILY SUPPLEMENT (Reported) Calcium Carbonate/Vitamin D3 (Calcium 600 + Vit D Tablet) (Unknown Strength) TABLET (Unknown Dose) PO BID SUPPLEMENT (Reported) Cholecalciferol (Vitamin D3) (Vitamin D3) 5,000 UNIT TABLET 1 TAB PO DAILY SUPPLEMENT (Reported) Cyanocobalamin (Vitamin B-12) (Cyanocobalamin Injection) 1,000 MCG/1 ML VIAL 1 ML IM Q30D SUPPLEMENT (Reported) Estradiol (Climara) 0.0375 MG/24 HOUR PATCH.TDWK 1 PATCH TOP ONCE A WEEK HRT (Reported) Flaxseed Oil (Flax Oil) 1,000 MG CAPSULE 1 CAP PO DAILY SUPPLEMENT (Reported) Folic Acid 0.8 MG TABLET 1 TAB PO BID SUPPLEMENT (Reported) Furosemide (Lasix) 80 MG TABLET 0.5 TAB PO BID DIURETIC (Reported) Glucosam Sul Na/Chondr Shepard A Na (Glucosamine-Chondroitin Tablet) 750 MG-600 MG TABLET 1 TAB PO BID SUPPLEMENT (Reported) Guaifenesin/Dextromethorphan (Tussin Dm Cough Syrup) 100 MG-10 MG/5 ML SYRUP 5 -10 ML PO Q4H PRN COUGH (Reported) Hydromorphone HCl 2 MG TABLET 1 TAB PO BID PRN PAIN (Reported) Levothyroxine Sodium (Synthroid) 125 MCG TABLET 1 TAB PO DAILY THYROID ( Reported) Lidocaine 5 % ADH..PATCH 1 PAT TOP DAILY PRN PAIN (Reported) Magnesium Oxide 400 MG TABLET 1 TAB PO DAILY SUPPLEMENT (Reported) Metoprolol Tartrate (Lopressor) 50 MG TABLET 1 TAB PO BID HEART/BP (Reported) Mirabegron (Myrbetriq) 25 MG TAB.ER.24H 1 TAB PO DAILY BLADDER (Reported) Multivitamin (Multiple Vitamins) 1 EACH TABLET 1 TAB PO DAILY SUPPLEMENT ( Reported) Niacinamide (Niacin) 500 MG TABLET 1 TAB PO DAILY SUPPLEMENT (Reported) Ondansetron (Zofran Odt) 8 MG TAB.RAPDIS 1 TAB PO Q8H PRN NAUSEA (Reported) place on top of the tongue where it will dissolve, then swallow Pantoprazole Sodium (Protonix) 40 MG TABLET.DR 1 TAB PO BID GI (Reported) Potassium Chloride (Klor-Con M20) (Unknown Strength) TAB.ER.PRT (Unknown Dose) PO DAILY SUPPLEMENT (Reported) Prednisone 50 MG TABLET 100 MG PO AD STEROID (Reported) [PRIMROSE OIL] 1,000 MG PO DAILY SUPPLEMENT (Reported) Prochlorperazine Maleate 10 MG TABLET 1 TAB PO Q6 PRN N/V (Reported) Rivaroxaban (Xarelto) 15 MG TABLET 1 TAB PO 1700 BLOOD THINNER (Reported) Tiotropium [place] (Spiriva) 18 MCG CAP.W.DEV 1 CAP INH DAILY BREATHING PROBLEMS (Reported) Tramadol HCl 50 MG TABLET 1 TAB PO Q4H PRN PAIN (Reported) Vitamin E Mixed (Vitamin E) 1,000 UNIT CAPSULE 1 CAP PO DAILY SUPPLEMENT ( Reported) Past History Travel History Traveled to [place] past 21 day No Medical History Blood Transfusion Hx: No Neurological: syncope EENT: submandibular masses Cardiovascular: AFIB, CAD (s/p stent), CHF, diastolic CHF, rheumatic fever Respiratory: asthma, COPD, obstructive sleep apnea Gastrointestinal: GERD, DIVERTICULOSIS Hepatic: NONE Renal: kidney stones Musculoskeletal: osteoarthritis, sciatica, chondrocalcinosis Psychiatric: NONE Endocrine: hypothyroidism Blood Disorders: PERNICIOUS ANEMIA B12 deficiency Cancer(s): non-hodgkin lymphoma, CHEMO INJECTION GIVEN History of MRSA: No History of VRE: No History of CDIFF: No Isolation History: Standard Influenza Vaccine: 08/18/16 Surgical History Surgical History: cholecystectomy, hernia repair-inguinal, hysterectomy (benign) , bladder surgery Family History Relations & Conditions If Any: MOTHER (hypertension, coronary artery disease and stroke). Relation not specified for: FH: coronary artery disease FH: hypertension FH: stroke Psychosocial History Where Do You Live? Home Who Do You Live With? self Services at Home: Home Health Aide, Nursing Primary Language: [place]an Smoking Status: Never Smoked ETOH Use: denies use Illicit Drug Use: denies illicit drug use Living Will? no Power of Synthetic Resin Operator/HCP? yes Name of POA/HCP: Pt's son, Juliocesar Saldana. Functional Ability ADLs Independent: dressing, eating, toileting, bathing. Ambulation: independent IADLs Independent: shopping, housework, finances, food prep, telephone, transportation , medication admin. Review of Systems Review of Systems Cardiovascular: Reports: see HPI. Respiratory: Reports: see HPI. GI: Reports: see HPI. Genitourinary: Reports: see HPI. All Other Systems: Reviewed and Negative Exam & Diagnostic Data Last 24 Hrs of Vital Signs/I&O Vital Signs Date Time Temp Pulse Resp B/P Pulse O2 O2 Flow FiO2 Ox Delivery Rate 01/15 1151 116 110/60 01/15 1000 Nasal 2.0L Cannula 01/15 0825 98.0 138 18 110/58 94 Room Air 01/15 0521 118 118/60 01/15 0230 98.2 121 18 102/64 98 Room Air 01/15 0135 97.3 130 18 121/69 99 Room Air 01/14 2301 98.2 125 18 103/65 98 Room Air 01/14 2234 97 Room Air 01/14 2136 98.0 133 18 103/67 96 Room Air 01/14 1902 98/56 01/14 1858 112 16 96 Room Air 01/14 1741 97 Intake & Output 01/15 1600 01/15 0800 01/15 0000 Intake Total 490 0 Output Total 100 650 Balance -100 -160 0 Intake, IV 390 Intake, Oral 100 0 Number 0 Bowel Movements Output, Urine 100 650 Patient 140 lb 125 lb Weight Physical Exam Other Physical Findings: She is awake and alert in no acute distress. She is afebrile. Skin reveals no rash. HEENT exam is negative. Neck is supple with no adenopathy; Port-A-Cath in the right upper chest with no inflammation at the site. Lungs bibasilar crackles. Heart irregular rhythm with no murmur. Abdomen is soft, tender on palpation in the mid abdomen, with no guarding or rebound, with positive bowel sounds. Back no CVA tenderness. Extremities no cyanosis, clubbing or edema. Neuro is without focality. Last 24 Hours of Lab Results: Laboratory Tests 01/15 01/15 1400 0240 Chemistry Sodium (137 - 145 mmol/L) 132 L Potassium (3.5 - 5.1 mmol/L) 3.9 Chloride (98 - 107 mmol/L) 99 Carbon Dioxide (22 - 30 mmol/L) 24 Anion Gap (5 - 16) 10 BUN (7 - 17 mg/dL) 11 Creatinine (0.5 - 1.0 mg/dL) 0.9 Estimated GFR (>60 ml/min) 59 L BUN/Creatinine Ratio (7 - 25 %) 12.2 Troponin I (< 0.11 ng/ml) 0.01 Hematology CBC w Diff NO MAN DIFF REQ WBC (4.8 - 10.8 /CUMM) 13.8 H RBC (4.20 - 5.40 /CUMM) 3.06 L Hgb (12.0 - 16.0 G/DL) 8.6 L Hct (37 - 47 %) 26.4 L MCV (81.0 - 99.0 FL) 86.4 MCH (27.0 - 31.0 PG) 28.1 RDW (11.5 - 14.5 %) 18.4 H Plt Count (130 - 400 /CUMM) 295 MPV (7.4 - 10.4 FL) 8.6 Gran % (42.2 - 75.2 %) 78.5 H Lymphocytes % (20.5 - 51.1 %) 11.9 L Monocytes % (1.7 - 9.3 %) 8.8 Eosinophils % (0 - 5 %) 0.1 Basophils % (0.0 - 2.0 %) 0.7 Absolute Granulocytes (1.4 - 6.5 /CUMM) 10.8 H Absolute Lymphocytes (1.2 - 3.4 /CUMM) 1.6 Absolute Monocytes (0.10 - 0.60 /CUMM) 1.2 H Absolute Eosinophils (0.0 - 0.7 /CUMM) 0 Absolute Basophils (0.0 - 0.2 /CUMM) 0.1 PUBS MCHC (33.0 - 37.0 G/DL) 32.5 L 01/15 03/05 0000 1851 Chemistry Lactic Acid (0.7 - 2.1 mmol/L) 1.5 Coagulation D-Dimer (70 - 232 ng/ml) 1559 H Toxicology Urine Opiates Screen (>2000 NG/ML) 1568.00 Methadone Screen (>300 NG/ML) < 40 Barbiturate Screen (>200 NG/ML) < 60 Ur Phencyclidine Scrn (>25 NG/ML) < 6.00 Amphetamines Screen (>1000 NG/ML) < 100 U Benzodiazepines Scrn (>200 NG/ML) < 85 Urine Cocaine Screen (>300 NG/ML) < 50 Urine Cannabis Screen (>50 NG/ML) < 5.00 Urines Urine Color (YEL,AMB,STR) YEL Urine Clarity (CLEAR) CLEAR Urine pH (5.0 - 8.0) 6.5 Ur Specific [place] (1.001 - 1.035) <= 1.005 Urine Protein (NEG,<30 MG/DL) NEG Urine Ketones (NEG) NEG Urine Nitrite (NEG) NEG Urine Bilirubin (NEG) NEG Urine Urobilinogen (0.1 - 1.0 EU/dl) 0.2 Ur Leukocyte Esterase (NEG) NEG Ur Microscopic EXAM NOT REQUIRED Urine Hemoglobin (NEG) NEG Urine Glucose (N MG/DL) NEG 01/14 1826 Chemistry Sodium (137 - 145 mmol/L) 133 L Potassium (3.5 - 5.1 mmol/L) 3.6 Chloride (98 - 107 mmol/L) 95 L Carbon Dioxide (22 - 30 mmol/L) 30 Anion Gap (5 - 16) 8 BUN (7 - 17 mg/dL) 13 Creatinine (0.5 - 1.0 mg/dL) 0.9 Estimated GFR (>60 ml/min) 59 L BUN/Creatinine Ratio (7 - 25 %) 14.4 Glucose (65 - 99 mg/dL) 89 Calcium (8.4 - 10.2 mg/dL) 8.6 Iron (37 - 170 ug/dL) 21 L TIBC (265 - 497 ug/dL) 242 L Ferritin (11.1 - 264 ng/mL) 512.0 H Total Bilirubin (0.2 - 1.3 mg/dL) 0.7 AST (14 - 36 U/L) 29 ALT (9 - 52 U/L) 35 Alkaline Phosphatase (<127 U/L) 91 Troponin I (< 0.11 ng/ml) < 0.01 [id number] Pept (<125 pg/mL) 6340 H Total Protein (6.3 - 8.2 g/dL) 5.4 L Albumin (3.5 - 5.0 g/dL) 2.7 L Globulin (1.9 - 4.2 gm/dL) 2.7 Albumin/Globulin Ratio (1.1 - 2.2 %) 1.0 L Amylase (30 - 110 U/L) 32 Lipase (23 - 300 U/L) 105 Vitamin B12 (239 - 931 pg/mL) > 1000 H Folate (2.76 - 20.0 ng/mL) > 20.0 H Hematology CBC w Diff NO MAN DIFF REQ WBC (4.8 - 10.8 /CUMM) 11.6 H RBC (4.20 - 5.40 /CUMM) 2.97 L Hgb (12.0 - 16.0 G/DL) 8.5 L Hct (37 - 47 %) 25.6 L MCV (81.0 - 99.0 FL) 86.2 MCH (27.0 - 31.0 PG) 28.6 RDW (11.5 - 14.5 %) 18.6 H Plt Count (130 - 400 /CUMM) 286 MPV (7.4 - 10.4 FL) 8.4 Gran % (42.2 - 75.2 %) 80.8 H Lymphocytes % (20.5 - 51.1 %) 8.6 L Monocytes % (1.7 - 9.3 %) 10.0 H Eosinophils % (0 - 5 %) 0.4 Basophils % (0.0 - 2.0 %) 0.2 Absolute Granulocytes (1.4 - 6.5 /CUMM) 9.4 H Absolute Lymphocytes (1.2 - 3.4 /CUMM) 1.0 L Absolute Monocytes (0.10 - 0.60 /CUMM) 1.2 H Absolute Eosinophils (0.0 - 0.7 /CUMM) 0 Absolute Basophils (0.0 - 0.2 /CUMM) 0 PUBS MCHC (33.0 - 37.0 G/DL) 33.2 Toxicology Serum Alcohol (<10 MG/DL) < 10.0 Last 24 Hours of Bill Results: No cultures obtained Diagnostic Data Recent Imaging Findings: CTA of the chest, abdomen and pelvis pancolonic diverticulosis with probable subacute diverticulitis, with an interloop, rim-enhancing abscess extending from the posterior wall of the midtransverse colon and intimately associated with the adjacent thick-walled small bowel. Assessment/Plan Assessment/Plan Impression: This is an 86-year-old woman with non-Hodgkin's lymphoma, maintained on chemotherapy, last given 10 days prior to admission, admitted on January 14 with several weeks of abdominal pain associated with nausea, dry heaves and constipation, found to be afebrile with a mild leukocytosis and with a CT scan of the abdomen and pelvis revealing diverticulitis with a rim-enhancing abscess extending from the posterior wall of the mid transverse colon. Upon review of the CT scan with the interventional radiologist the possibility of a fistula to the small bowel was raised. Aspiration of this abscess was discussed and is felt to be feasible, though it may not be possible to leave a catheter in place. She is to be evaluated by General Surgery, but she is not likely to be a good surgical candidate. She is currently on Ceftriaxone and Flagyl which can be continued pending further evaluation. Unfortunately no blood cultures were obtained on admission. Suggestion: 1. Obtain blood cultures 2 2. Await surgical evaluation 3. Would pursue CT-guided aspiration of the abscess, with oral contrast administered to rule out a fistula 4. Continue Ceftriaxone and Flagyl pending above Consult Acknowledgment - Thank you for your consult request.
[2017-01-15 17:14] VITALS: BP 98/60
[2017-01-15 18:04] VITALS: BP 98/52
[2017-01-16 00:58] VITALS: BP 100/50
--- NOTE | 2017-01-16 06:54 | Cons- Hematology ---
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 Patient had chilly sensations. Currently she feels somewhat better. Allergies/Medications Allergies: Coded Allergies: Penicillins (RASH 12/16/16) acetaminophen (BURNING FEELING IN STOMACH 12/16/16) animal dander (PER 01/14/17) garlic (NAUSEA 12/16/16) latex (SORES 12/16/16) mold (UNKNOWN 12/16/16) onion (NAUSEA 12/16/16) Sulfa (Sulfonamide Antibiotics) (GI 12/16/16) aspirin (MILD GI 12/16/16) diazepam (GI 12/16/16) oxycodone (GI, MIGRAINE 12/16/16) propoxyphene (GI 12/16/16) Uncoded Allergies: COLOGNE (PER PT UPSETS HER WITH THE SMELL 10/17/16) HAIR SPRAY (PER PT UPSETS HER WITH THE SMELL 10/17/16) SMOKE (PER PT CANT STAND SMELLS IT UPSETS HER 10/17/16) TOBACCO (PER 01/14/17) Home Med List: Ascorbic Acid (Vitamin C) 500 MG TABLET 1 TAB PO TID SUPPLEMENT (Reported) Biotin 5 MG CAPSULE 1 TAB PO DAILY SUPPLEMENT (Reported) Calcium Carbonate/Vitamin D3 (Calcium 600 + Vit D Tablet) (Unknown Strength) TABLET (Unknown Dose) PO BID SUPPLEMENT (Reported) Cholecalciferol (Vitamin D3) (Vitamin D3) 5,000 UNIT TABLET 1 TAB PO DAILY SUPPLEMENT (Reported) Cyanocobalamin (Vitamin B-12) (Cyanocobalamin Injection) 1,000 MCG/1 ML VIAL 1 ML IM Q30D SUPPLEMENT (Reported) Estradiol (Climara) 0.0375 MG/24 HOUR PATCH.TDWK 1 PATCH TOP ONCE A WEEK HRT (Reported) Flaxseed Oil (Flax Oil) 1,000 MG CAPSULE 1 CAP PO DAILY SUPPLEMENT (Reported) Folic Acid 0.8 MG TABLET 1 TAB PO BID SUPPLEMENT (Reported) Furosemide (Lasix) 80 MG TABLET 0.5 TAB PO BID DIURETIC (Reported) Glucosam Sul Na/Chondr Shepard A Na (Glucosamine-Chondroitin Tablet) 750 MG-600 MG TABLET 1 TAB PO BID SUPPLEMENT (Reported) Guaifenesin/Dextromethorphan (Tussin Dm Cough Syrup) 100 MG-10 MG/5 ML SYRUP 5 -10 ML PO Q4H PRN COUGH (Reported) Hydromorphone HCl 2 MG TABLET 1 TAB PO BID PRN PAIN (Reported) Levothyroxine Sodium (Synthroid) 125 MCG TABLET 1 TAB PO DAILY THYROID ( Reported) Lidocaine 5 % ADH..PATCH 1 PAT TOP DAILY PRN PAIN (Reported) Magnesium Oxide 400 MG TABLET 1 TAB PO DAILY SUPPLEMENT (Reported) Metoprolol Tartrate (Lopressor) 50 MG TABLET 1 TAB PO BID HEART/BP (Reported) Mirabegron (Myrbetriq) 25 MG TAB.ER.24H 1 TAB PO DAILY BLADDER (Reported) Multivitamin (Multiple Vitamins) 1 EACH TABLET 1 TAB PO DAILY SUPPLEMENT ( Reported) Niacinamide (Niacin) 500 MG TABLET 1 TAB PO DAILY SUPPLEMENT (Reported) Ondansetron (Zofran Odt) 8 MG TAB.RAPDIS 1 TAB PO Q8H PRN NAUSEA (Reported) place on top of the tongue where it will dissolve, then swallow Pantoprazole Sodium (Protonix) 40 MG TABLET.DR 1 TAB PO BID GI (Reported) Potassium Chloride (Klor-Con M20) (Unknown Strength) TAB.ER.PRT (Unknown Dose) PO DAILY SUPPLEMENT (Reported) Prednisone 50 MG TABLET 100 MG PO AD STEROID (Reported) [PRIMROSE OIL] 1,000 MG PO DAILY SUPPLEMENT (Reported) Prochlorperazine Maleate 10 MG TABLET 1 TAB PO Q6 PRN N/V (Reported) Rivaroxaban (Xarelto) 15 MG TABLET 1 TAB PO 1700 BLOOD THINNER (Reported) Tiotropium [place] (Spiriva) 18 MCG CAP.W.DEV 1 CAP INH DAILY BREATHING PROBLEMS (Reported) Tramadol HCl 50 MG TABLET 1 TAB PO Q4H PRN PAIN (Reported) Vitamin E Mixed (Vitamin E) 1,000 UNIT CAPSULE 1 CAP PO DAILY SUPPLEMENT ( Reported) Current Medications: Current Medications Sig/Timi Start time Last Medication Dose Route Stop Time Status Admin Acetaminophen 650 MG Q6P PRN 01/15 0200 AC PO Acetaminophen 1,000 MG Q6 PRN 01/15 0200 AC IV Ceftriaxone Sodium 1,000 MG DAILY 01/15 1000 AC 01/15 IV 1117 Diltiazem HCl 125 MG Q24H 01/15 0530 AC 01/16 Sodium Chloride 100 ML IV 0629 Furosemide 40 MG 7:30 AM, & 4:30 PM 01/15 1300 AC 01/15 IV 1430 Guaifenesin/ 10 ML Q4H PRN 01/15 0200 AC Dextromethorphan PO Levothyroxine Sodium 0.125 MG DAILY AC 01/15 0700 AC 01/16 PO 0627 Magnesium Oxide 400 MG DAILY 01/15 1000 AC PO Melatonin 3 MG AT BEDTIME 01/15 2200 AC 01/15 PO 2056 Metoprolol Tartrate 50 MG BID 01/15 0500 AC 01/15 PO 1151 Metronidazole 500 MG IQ8 01/15 0800 AC 01/16 N/A 1 UNIT IV 0159 Morphine Sulfate 2 MG Q4P PRN 01/15 0200 AC IV Nicotinic Acid 500 MG WITH MEALS 01/15 0800 AC PO Potassium Chloride 20 MEQ DAILY 01/15 1000 AC PO Prochlorperazine 10 MG Q6 PRN 01/15 0200 AC PO Sodium Chloride 1,000 ML Q13H 01/15 0200 DC 01/15 IV 01/15 1459 0258 Tiotropium [place] 1 PUF DAILY 01/15 1000 AC 01/15 INH 1117 Vitamin E 100 IU DAILY 01/15 1000 AC PO Review of Systems Review of Systems: Patient denies headaches or dizziness. Patient denies shortness of breath cough chest pain or hemoptysis. Patient denies dysuria hematuria. She denies focal neurologic deficit Past History Travel History Traveled to [place] past 21 day No Medical History Blood Transfusion Hx: No Neurological: syncope EENT: submandibular masses Cardiovascular: AFIB, CAD (s/p stent), CHF, diastolic CHF, rheumatic fever Respiratory: asthma, COPD, obstructive sleep apnea Gastrointestinal: GERD, DIVERTICULOSIS Hepatic: NONE Renal: kidney stones Musculoskeletal: osteoarthritis, sciatica, chondrocalcinosis Psychiatric: report of suicide attempt as a young woman by son Endocrine: hypothyroidism Blood Disorders: PERNICIOUS ANEMIA B12 deficiency Cancer(s): non-hodgkin lymphoma, CHEMO INJECTION GIVEN Surgical History Surgical History: cholecystectomy, hernia repair-inguinal, hysterectomy (benign) , bladder surgery Family History Relations & Conditions If Any: MOTHER (hypertension, coronary artery disease and stroke). Relation not specified for: FH: coronary artery disease FH: hypertension FH: stroke Psychosocial History Where Do You Live? Home Who Do You Live With? self Services at Home: Home Health Aide, Nursing Primary Language: [place]ar[place] Smoking Status: Never Smoked ETOH Use: denies use Illicit Drug Use: denies illicit drug use Living Will? no Power of Brand Protection Manager/HCP? yes Name of POA/HCP: Pt's son, Juliocesar Saldana. Functional Ability ADLs Independent: dressing, eating, toileting, bathing. Ambulation: independent IADLs Independent: shopping, housework, finances, food prep, telephone, transportation , medication admin. Exam & Diagnostic Data Vital Signs and I&O Vital Signs Date Time Temp Pulse Resp B/P Pulse O2 O2 Flow FiO2 Ox Delivery Rate 01/16 0058 98.2 84 18 100/50 93 Room Air 01/15 2103 84 102/58 /06 1804 98/52 03/06 1714 98.2 90 18 98/60 95 Room Air 01/15 1151 116 110/60 06 1000 Nasal 2.0L Cannula 01/15 0825 98.0 138 18 110/58 94 Room Air 01/15 0800 95 Nasal 2.0L Cannula Intake & Output 01/16 0800 / 0000 01/15 1600 Intake Total 20 640 Output Total 800 1100 Balance -780 -460 Intake, IV 20 640 Number 1 Bowel Movements Output, Urine 800 1100 Gen.: in NAD ENT: Sclera anicteric Chest: Normal respiratory effort, decreased breath sounds Cor: RRR, no extra sounds Abdomen: Diffuse tenderness, no definite rebound Extremities: Without clubbing, cyanosis, or edema Neurology: Alert and oriented 3, no gross deficit Skin: No rashes Last 48 Hours of Lab Results: Laboratory Tests 01/16/ 0610 1400 0240 Chemistry Sodium (137 - 145 mmol/L) Pending 132 L Potassium (3.5 - 5.1 mmol/L) Pending 3.9 Chloride (98 - 107 mmol/L) Pending 99 Carbon Dioxide (22 - 30 mmol/L) Pending 24 Anion Gap (5 - 16) Pending 10 BUN (7 - 17 mg/dL) Pending 11 Creatinine (0.5 - 1.0 mg/dL) Pending 0.9 Estimated GFR (>60 ml/min) 59 L BUN/Creatinine Ratio (7 - 25 %) Pending 12.2 Troponin I (< 0.11 ng/ml) 0.01 Coagulation PT Pending INR Pending Hematology CBC w Diff Pending NO MAN DIFF REQ WBC (4.8 - 10.8 /CUMM) Pending 13.8 H RBC (4.20 - 5.40 /CUMM) Pending 3.06 L Hgb (12.0 - 16.0 G/DL) Pending 8.6 L Hct (37 - 47 %) Pending 26.4 L MCV (81.0 - 99.0 FL) Pending 86.4 MCH (27.0 - 31.0 PG) Pending 28.1 RDW (11.5 - 14.5 %) Pending 18.4 H Plt Count (130 - 400 /CUMM) Pending 295 MPV (7.4 - 10.4 FL) Pending 8.6 Gran % (42.2 - 75.2 %) 78.5 H Lymphocytes % (20.5 - 51.1 %) 11.9 L Monocytes % (1.7 - 9.3 %) 8.8 Eosinophils % (0 - 5 %) 0.1 Basophils % (0.0 - 2.0 %) 0.7 Absolute Granulocytes (1.4 - 6.5 /CUMM) 10.8 H Absolute Lymphocytes (1.2 - 3.4 /CUMM) 1.6 Absolute Monocytes (0.10 - 0.60 /CUMM) 1.2 H Absolute Eosinophils (0.0 - 0.7 /CUMM) 0 Absolute Basophils (0.0 - 0.2 /CUMM) 0.1 PUBS MCHC (33.0 - 37.0 G/DL) Pending 32.5 L 06 03/05 0000 1851 Chemistry Lactic Acid (0.7 - 2.1 mmol/L) 1.5 Coagulation D-Dimer (70 - 232 ng/ml) 1559 H Toxicology Urine Opiates Screen (>2000 NG/ML) 1568.00 Methadone Screen (>300 NG/ML) < 40 Barbiturate Screen (>200 NG/ML) < 60 Ur Phencyclidine Scrn (>25 NG/ML) < 6.00 Amphetamines Screen (>1000 NG/ML) < 100 U Benzodiazepines Scrn (>200 NG/ML) < 85 Urine Cocaine Screen (>300 NG/ML) < 50 Urine Cannabis Screen (>50 NG/ML) < 5.00 Urines Urine Color (YEL,AMB,STR) YEL Urine Clarity (CLEAR) CLEAR Urine pH (5.0 - 8.0) 6.5 Ur Specific [place] (1.001 - 1.035) <= 1.005 Urine Protein (NEG,<30 MG/DL) NEG Urine Ketones (NEG) NEG Urine Nitrite (NEG) NEG Urine Bilirubin (NEG) NEG Urine Urobilinogen (0.1 - 1.0 EU/dl) 0.2 Ur Leukocyte Esterase (NEG) NEG Ur Microscopic EXAM NOT REQUIRED Urine Hemoglobin (NEG) NEG Urine Glucose (N MG/DL) NEG 01/14 1826 Chemistry Sodium (137 - 145 mmol/L) 133 L Potassium (3.5 - 5.1 mmol/L) 3.6 Chloride (98 - 107 mmol/L) 95 L Carbon Dioxide (22 - 30 mmol/L) 30 Anion Gap (5 - 16) 8 BUN (7 - 17 mg/dL) 13 Creatinine (0.5 - 1.0 mg/dL) 0.9 Estimated GFR (>60 ml/min) 59 L BUN/Creatinine Ratio (7 - 25 %) 14.4 Glucose (65 - 99 mg/dL) 89 Calcium (8.4 - 10.2 mg/dL) 8.6 Iron (37 - 170 ug/dL) 21 L TIBC (265 - 497 ug/dL) 242 L Ferritin (11.1 - 264 ng/mL) 512.0 H Total Bilirubin (0.2 - 1.3 mg/dL) 0.7 AST (14 - 36 U/L) 29 ALT (9 - 52 U/L) 35 Alkaline Phosphatase (<127 U/L) 91 Troponin I (< 0.11 ng/ml) < 0.01 [id number] Pept (<125 pg/mL) 6340 H Total Protein (6.3 - 8.2 g/dL) 5.4 L Albumin (3.5 - 5.0 g/dL) 2.7 L Globulin (1.9 - 4.2 gm/dL) 2.7 Albumin/Globulin Ratio (1.1 - 2.2 %) 1.0 L Amylase (30 - 110 U/L) 32 Lipase (23 - 300 U/L) 105 Vitamin B12 (239 - 931 pg/mL) > 1000 H Folate (2.76 - 20.0 ng/mL) > 20.0 H Hematology CBC w Diff NO MAN DIFF REQ WBC (4.8 - 10.8 /CUMM) 11.6 H RBC (4.20 - 5.40 /CUMM) 2.97 L Hgb (12.0 - 16.0 G/DL) 8.5 L Hct (37 - 47 %) 25.6 L MCV (81.0 - 99.0 FL) 86.2 MCH (27.0 - 31.0 PG) 28.6 RDW (11.5 - 14.5 %) 18.6 H Plt Count (130 - 400 /CUMM) 286 MPV (7.4 - 10.4 FL) 8.4 Gran % (42.2 - 75.2 %) 80.8 H Lymphocytes % (20.5 - 51.1 %) 8.6 L Monocytes % (1.7 - 9.3 %) 10.0 H Eosinophils % (0 - 5 %) 0.4 Basophils % (0.0 - 2.0 %) 0.2 Absolute Granulocytes (1.4 - 6.5 /CUMM) 9.4 H Absolute Lymphocytes (1.2 - 3.4 /CUMM) 1.0 L Absolute Monocytes (0.10 - 0.60 /CUMM) 1.2 H Absolute Eosinophils (0.0 - 0.7 /CUMM) 0 Absolute Basophils (0.0 - 0.2 /CUMM) 0 PUBS MCHC (33.0 - 37.0 G/DL) 33.2 Toxicology Serum Alcohol (<10 MG/DL) < 10.0 Imaging/Other Studies: CTA chest/abdomen/pelvis-splenic lesions stable, significant lymphadenopathy, extensive diverticulosis, subclinical diverticulitis and questionable abscess Assessment/Plan Assessment: 1. Diverticulitis/abscess-the preponderance of data suggesting an infectious etiology for her current findings. Given her extensive initial lymphadenopathy and recent CAT scan findings, I do not think her lymphoma is active. Recommend- As per ID/surgery 2. Large cell B-cell lymphoma-PET scan as an outpatient Recommendations: .. Consult Acknowledgment - Thank you for your consult request.
[2017-01-16 08:12] LABS: PT 13.5 SEC (9.4-12.5)
--- NOTE | 2017-01-16 08:12 | PN- Housestaff ---
JESSICA,[facility] 01/16/17 0750: Subjective Follow-up For: Diverticulitis with possible intra-abdominal abscess Goldy marques with rapid ventricular response [place] large B-cell lymphoma Complaints: abdominal discomfort Tele-Events Since Last Visit: Goldy marques, 86-96, some PVCs Subjective: Patient feels a little better this morning. She is scheduled for a IR guided percuteness drainage of the abscess this morning. She does not have any suicidal thoughts and the sitter has been discontinued. She was dizzy last evening and BP dropped. She already received a dose of Lasix this am. Will discontinue Lasix for now. Agree to have morning blood work which was drawn from her port. Heart rate well controlled on the Cardizem drip. Review of Systems Constitutional: Reports: malaise, weakness. EENTM: Reports: no symptoms. Cardiovascular: Reports: no symptoms. Respiratory: Reports: no symptoms. Gastrointestinal: Reports: abdominal pain. Genitourinary: Reports: no symptoms. Musculoskeletal: Reports: no symptoms. Skin: Reports: no symptoms. Objective Last 24 Hrs of Vital Signs/I&O Vital Signs Date Time Temp Pulse Resp B/P Pulse O2 O2 Flow FiO2 Ox Delivery Rate 01/16 0058 98.2 84 18 100/50 93 Room Air 01/15 2103 84 102/58 / 1804 98/52 / 1714 98.2 90 18 98/60 95 Room Air 03/ 1151 116 110/60 /06 1000 Nasal 2.0L Cannula 01/15 0825 98.0 138 18 110/58 94 Room Air 01/15 0800 95 Nasal 2.0L Cannula Intake & Output 01/16 0800 01/16 0000 / 1600 Intake Total 20 640 Output Total 800 1100 Balance -780 -460 Intake, IV 20 640 Number 1 Bowel Movements Output, Urine 800 1100 Physical Exam General Appearance: Alert, Oriented X3, Cooperative, Mild Distress Skin: No Rashes, No Breakdown, Port-A-Cath in the right upper chest HEENT: Atraumatic, PERRLA, EOMI Neck: Supple, No JVD Cardiovascular: No Murmurs, irregularly irregular heart rate Lungs: basal crackles bilaterally Abdomen: Normal Bowel Sounds, Soft, tenderness in the umbilical area, no peritoneal signs Neurological: Normal Speech, Normal Tone, Sensation Intact, Cranial Nerves 3-12 NL Extremities: No Clubbing, No Cyanosis, No Edema, Normal Pulses Current Medications: Current Medications Sig/Timi Start time Last Medication Dose Route Stop Time Status Admin Acetaminophen 650 MG Q6P PRN 01/15 0200 AC PO Acetaminophen 1,000 MG Q6 PRN 01/15 0200 AC IV Ceftriaxone Sodium 1,000 MG DAILY 01/15 1000 AC 01/15 IV 1117 Diltiazem HCl 125 MG Q24H 01/15 0530 AC 01/16 Sodium Chloride 100 ML IV 0629 Furosemide 40 MG 7:30 AM, & 4:30 PM 01/15 1300 AC 01/16 IV 0736 Guaifenesin/ 10 ML Q4H PRN 01/15 0200 AC Dextromethorphan PO Levothyroxine Sodium 0.125 MG DAILY AC 01/15 0700 AC 01/16 PO 0627 Magnesium Oxide 400 MG DAILY 01/15 1000 AC PO Melatonin 3 MG AT BEDTIME 01/15 2200 AC 01/15 PO 2056 Metoprolol Tartrate 50 MG BID 01/15 0500 AC 01/15 PO 1151 Metronidazole 500 MG IQ8 01/15 0800 AC 01/16 N/A 1 UNIT IV 0736 Morphine Sulfate 2 MG Q4P PRN 01/15 0200 AC IV Nicotinic Acid 500 MG WITH MEALS 01/15 0800 AC PO Potassium Chloride 20 MEQ DAILY 01/15 1000 AC PO Prochlorperazine 10 MG Q6 PRN 01/15 0200 AC 01/16 PO 0736 Sodium Chloride 1,000 ML Q13H 01/15 0200 DC 01/15 IV 01/15 1459 0258 Tiotropium [place] 1 PUF DAILY 01/15 1000 AC 01/15 INH 1117 Vitamin E 100 IU DAILY 01/15 1000 AC PO Last 24 Hrs of Lab/Bill Results Last 24 Hrs of Labs/Mics: Laboratory Tests 01/16/17 0610: Anion Gap 9, Estimated GFR 52 L, BUN/Creatinine Ratio 11.0, PT Pending, INR Pending, CBC w Diff Pending, WBC Pending, RBC Pending, Hgb Pending, Hct Pending, MCV Pending, MCH Pending, RDW Pending, Plt Count Pending, MPV Pending, PUBS MCHC Pending 01/15/17 1400: Anion Gap 10, Estimated GFR 59 L, BUN/Creatinine Ratio 12.2, CBC w Diff NO MAN DIFF REQ, RBC 3.06 L, MCV 86.4, MCH 28.1, RDW 18.4 H, MPV 8.6, Gran % 78.5 H, Lymphocytes % 11.9 L, Monocytes % 8.8, Eosinophils % 0.1, Basophils % 0.7, Absolute Granulocytes 10.8 H, Absolute Lymphocytes 1.6, Absolute Monocytes 1.2 H, Absolute Eosinophils 0, Absolute Basophils 0.1, PUBS MCHC 32.5 L Microbiology 01/15 1650 BLOOD: Blood Culture - RECD 01/15 1501 BLOOD: Blood Culture - CAN Cancelled: SPECIMEN NOT RECEIVED IN LABORATORY Assessment/Plan Assessment: 86 [facility] F from [facility], with h/o Afib on xarelto, [place] large B-cell lymphoma on chemo (last was 2 weeks ago) with significant mediastinal lymphadenopathy, bone mets, neutropenia, CKD stage 3A,mild asthma, 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 Plan: #1 Diverticulitis with questionable intra-abdominal abscess. -Maintaining patient nothing by mouth -Gentle hydration with IV normal saline@ 50 cc /hr -Pain control with IV morphine and IV Tylenol -Continue GI prophylaxis -Pancultures pending -IV ceftriaxone and Flagyl day 3 -Patient is scheduled for CT-guided aspiration of the abscess by IR with oral contrast to rule out a fistula. -Xarelto is on hold in anticipation of an IR procedure. #2 A. fib with rapid ventricular response -Patient being monitored on telemetry. No events. -Heart rate better controlled on the Cardizem drip -ACS ruled out with negative troponins and EKG -Continue metoprolol 50 mg twice a day -Cardiology following. #3 History of HFwPEF/ Dizziness/ Low BP -Chest x-ray showed evidence of congestion. -Lasix was started but discontinued now due to dizzines and low BP. #4 Non-Hodgkin large B-cell lymphoma -Treated with 6 cycles of Rituxan, Cytoxan, VP TRANSPORTATION 16, vincristine and prednisone. Last chemotherapy 2 weeks ago with prednisone for 4 days post chemotherapy. - Dr. Florentino aware. DVT prophylaxis Alps(Xarelto on hold for procedure) Nothing by mouth Severe pain pathway Problem List: 1. ATRIAL FIBRILATION 2. CONGESTIVE HEART FAILURE 3. Intra-abdominal abscess 4. Diverticulitis 5. Non Hodgkin's lymphoma Pain Ratin Pain Location: abdomen Pain Goal: Pain 4 or less Pain Plan: IV Tylenol and IV morphine Tomorrow's Labs & Rationales: cbc. H infection BEP.. hypokalemia MARY MAYBERRY,RUPESH 01/16/17 1119: Attending MD Review Statement Attending Statement Attending MD Statement: examined this patient, discuss w/resident/PA/INSPECTOR TOYS, agreed w/resident/PA/INSPECTOR TOYS, reviewed EMR data (avail), discussed with nursing, discussed with case mgmt, reviewed images Attending Assessment/Plan: Patient feels okay. She is dying to eat and drink something. I explained to her the need for the CT with oral contrast to better define the abscess and questionable fistula. She remains nothing by mouth on IV ceftriaxone and Flagyl for a diverticulitis with a likely abscess in the setting of B-cell lymphoma who is actively getting chemotherapy. I also spoke to cardiology and we are going to stop the IV Lasix as I think that's drying her out despite the chest x-ray showing pulmonary edema. She has underlying atrial fibrillation and the Xarelto is on hold due to the procedure and she is on IV Cardizem for rate control and will follow closely.
[2017-01-16 08:38] LABS: ABSOLUTE BASOPHIL COUNT 0 /CUMM (0.0-0.2); ABSOLUTE EOSINOPHIL COUNT 0 /CUMM (0.0-0.7); ABSOLUTE GRANULOCYTE CT 10.3 /CUMM (1.4-6.5); ABSOLUTE LYMPH COUNT 1.4 /CUMM (1.2-3.4); ABSOLUTE MONOCYTE COUNT 1.2 /CUMM (0.10-0.60); BASOPHIL % 0.1 % (0.0-2.0); EOSINOPHIL % 0.2 % (0-5); GRANULOCYTE % 79.4 % (42.2-75.2); HEMATOCRIT 22.6 % (37-47); MEAN CORPUSCULAR HGB 28.8 PG (27.0-31.0); MEAN CORPUSCULAR HGB CONC 33.6 G/DL (33.0-37.0); MEAN CORPUSCULAR VOLUME 85.8 FL (81.0-99.0); MEAN PLATELET VOLUME 9.1 FL (7.4-10.4); PLATELET COUNT 272 /CUMM (130-400); RBC DISTRIBUTION WIDTH 18.6 % (11.5-14.5); RED BLOOD CELL CT 2.63 /CUMM (4.20-5.40)
[2017-01-16 08:51] VITALS: BP 100/60
--- NOTE | 2017-01-16 10:26 | PN- General Surgery ---
Subjective Subjective: NAEO. Patient without new c/o. Pain improved with pain meds. NPO without n/v. Continues to pass flatus and had a bowel movement this a.m. OOB to bathroom. Denies CP/SOB. Objective Vital Signs and I&Os Vital Signs Date Time Temp Pulse Resp B/P Pulse O2 O2 Flow FiO2 Ox Delivery Rate 01/16 0851 98.8 122 20 100/60 96 01/16 0800 94 Room Air 01/16 0058 98.2 84 18 100/50 93 Room Air 01/15 2103 84 102/58 01/15 1804 98/52 / 1714 98.2 90 18 98/60 95 Room Air 01/15 1151 116 110/60 Intake & Output 01/16 1600 01/16 0801/16 0000 01/15 1600 01/15 0800 / 0000 Intake Total 300 20 640 490 0 Output Total 747 954 4403 650 Balance 0 -780 -460 -160 0 Intake, IV 250 20 640 390 Intake, Oral 50 100 0 Number 1 1 0 Bowel Movements Output, Urine 628 346 9690 650 Patient 140 lb 125 lb Weight Physical Exam: Gen: NAD, A&Ox3, comfortable Chest: NRD. Sinus tachycardia. Abd: Soft, Non distended. Tender across mid abdomen. +BS x4 Ext: Warm, No edema. Current Medications: Current Medications Sig/Timi Start time Last Medication Dose Route Stop Time Status Admin Acetaminophen 650 MG Q6P PRN 01/15 0200 AC PO Acetaminophen 1,000 MG Q6 PRN 01/15 0200 AC IV Ceftriaxone Sodium 1,000 MG DAILY 01/15 1000 AC 01/16 IV 0944 Diltiazem HCl 125 MG Q24H 01/15 0530 AC 01/16 Sodium Chloride 100 ML IV 06 Furosemide 40 MG 7:30 AM, & 4:30 PM 01/15 1300 DC 01/16 IV 0736 Guaifenesin/ 10 ML Q4H PRN 01/15 0200 AC Dextromethorphan PO Levothyroxine Sodium 0.125 MG DAILY AC 01/15 0700 AC 01/16 PO 06 Magnesium Oxide 400 MG DAILY 01/15 1000 AC PO Melatonin 3 MG AT BEDTIME 01/15 2200 AC 01/15 PO 205 Metoprolol Tartrate 50 MG BID 01/15 0500 AC 01/15 PO 1151 Metronidazole 500 MG IQ8 01/15 0800 AC 01/16 N/A 1 UNIT IV 0736 Morphine Sulfate 2 MG Q4P PRN 01/15 0200 AC IV Nicotinic Acid 500 MG WITH MEALS 01/15 08 AC PO Pantoprazole Sodium 40 MG DAILY 01/16 1000 AC 01/16 IV 0944 Potassium Chloride 10 MEQ ONCE ONE 01/16 0900 DC IV 01/16 0901 Potassium Chloride 10 MEQ ONCE ONE 01/16 0800 DC 01/16 IV 01/16 0801 0944 Potassium Chloride 20 MEQ DAILY 01/15 1000 AC PO Prochlorperazine 10 MG Q6 PRN 01/15 0200 AC 01/16 PO 0736 Sodium Chloride 1,000 ML Q13H 01/15 0200 DC 01/15 IV 01/15 1459 0258 Tiotropium [place] 1 PUF DAILY 01/15 1000 AC 01/16 INH 0944 Vitamin E 100 IU DAILY 01/15 1000 AC PO Results Last 48 Hours of Labs: Laboratory Tests 01/16 01/15 0610 1400 Chemistry Sodium (137 - 145 mmol/L) 136 L 132 L Potassium (3.5 - 5.1 mmol/L) 3.2 L 3.9 Chloride (98 - 107 mmol/L) 101 99 Carbon Dioxide (22 - 30 mmol/L) 26 24 Anion Gap (5 - 16) 9 10 BUN (7 - 17 mg/dL) 11 11 Creatinine (0.5 - 1.0 mg/dL) 1.0 0.9 Estimated GFR (>60 ml/min) 52 L 59 L BUN/Creatinine Ratio (7 - 25 %) 11.0 12.2 Coagulation PT (9.4 - 12.5 SEC) 13.5 H INR (0.90 - 1.19) 1.29 H Hematology CBC w Diff NO MAN DIFF REQ NO MAN DIFF REQ WBC (4.8 - 10.8 /CUMM) 13.0 H 13.8 H RBC (4.20 - 5.40 /CUMM) 2.63 L 3.06 L Hgb (12.0 - 16.0 G/DL) 7.6 L 8.6 L Hct (37 - 47 %) 22.6 L 26.4 L MCV (81.0 - 99.0 FL) 85.8 86.4 MCH (27.0 - 31.0 PG) 28.8 28.1 RDW (11.5 - 14.5 %) 18.6 H 18.4 H Plt Count (130 - 400 /CUMM) 272 295 MPV (7.4 - 10.4 FL) 9.1 8.6 Gran % (42.2 - 75.2 %) 79.4 H 78.5 H Lymphocytes % (20.5 - 51.1 %) 10.9 L 11.9 L Monocytes % (1.7 - 9.3 %) 9.4 H 8.8 Eosinophils % (0 - 5 %) 0.2 0.1 Basophils % (0.0 - 2.0 %) 0.1 0.7 Absolute Granulocytes (1.4 - 6.5 /CUMM) 10.3 H 10.8 H Absolute Lymphocytes (1.2 - 3.4 /CUMM) 1.4 1.6 Absolute Monocytes (0.10 - 0.60 /CUMM) 1.2 H 1.2 H Absolute Eosinophils (0.0 - 0.7 /CUMM) 0 0 Absolute Basophils (0.0 - 0.2 /CUMM) 0 0.1 PUBS MCHC (33.0 - 37.0 G/DL) 33.6 32.5 L 03/06 03/06 03/05 0240 0000 1851 Chemistry Lactic Acid (0.7 - 2.1 mmol/L) 1.5 Troponin I (< 0.11 ng/ml) 0.01 Coagulation D-Dimer (70 - 232 ng/ml) 1559 H Toxicology Urine Opiates Screen (>2000 NG/ML) 1568.00 Methadone Screen (>300 NG/ML) < 40 Barbiturate Screen (>200 NG/ML) < 60 Ur Phencyclidine Scrn (>25 NG/ML) < 6.00 Amphetamines Screen (>1000 NG/ML) < 100 U Benzodiazepines Scrn (>200 NG/ML) < 85 Urine Cocaine Screen (>300 NG/ML) < 50 Urine Cannabis Screen (>50 NG/ML) < 5.00 Urines Urine Color (YEL,AMB,STR) YEL Urine Clarity (CLEAR) CLEAR Urine pH (5.0 - 8.0) 6.5 Ur Specific [place] (1.001 - 1.035) <= 1.005 Urine Protein (NEG,<30 MG/DL) NEG Urine Ketones (NEG) NEG Urine Nitrite (NEG) NEG Urine Bilirubin (NEG) NEG Urine Urobilinogen (0.1 - 1.0 EU/dl) 0.2 Ur Leukocyte Esterase (NEG) NEG Ur Microscopic EXAM NOT REQUIRED Urine Hemoglobin (NEG) NEG Urine Glucose (N MG/DL) NEG 01/14 1826 Chemistry Sodium (137 - 145 mmol/L) 133 L Potassium (3.5 - 5.1 mmol/L) 3.6 Chloride (98 - 107 mmol/L) 95 L Carbon Dioxide (22 - 30 mmol/L) 30 Anion Gap (5 - 16) 8 BUN (7 - 17 mg/dL) 13 Creatinine (0.5 - 1.0 mg/dL) 0.9 Estimated GFR (>60 ml/min) 59 L BUN/Creatinine Ratio (7 - 25 %) 14.4 Glucose (65 - 99 mg/dL) 89 Calcium (8.4 - 10.2 mg/dL) 8.6 Iron (37 - 170 ug/dL) 21 L TIBC (265 - 497 ug/dL) 242 L Ferritin (11.1 - 264 ng/mL) 512.0 H Total Bilirubin (0.2 - 1.3 mg/dL) 0.7 AST (14 - 36 U/L) 29 ALT (9 - 52 U/L) 35 Alkaline Phosphatase (<127 U/L) 91 Troponin I (< 0.11 ng/ml) < 0.01 Lzi-D-Eggzfjlnxjn Pept (<125 pg/mL) 6340 H Total Protein (6.3 - 8.2 g/dL) 5.4 L Albumin (3.5 - 5.0 g/dL) 2.7 L Globulin (1.9 - 4.2 gm/dL) 2.7 Albumin/Globulin Ratio (1.1 - 2.2 %) 1.0 L Amylase (30 - 110 U/L) 32 Lipase (23 - 300 U/L) 105 Vitamin B12 (239 - 931 pg/mL) > 1000 H Folate (2.76 - 20.0 ng/mL) > 20.0 H Hematology CBC w Diff NO MAN DIFF REQ WBC (4.8 - 10.8 /CUMM) 11.6 H RBC (4.20 - 5.40 /CUMM) 2.97 L Hgb (12.0 - 16.0 G/DL) 8.5 L Hct (37 - 47 %) 25.6 L MCV (81.0 - 99.0 FL) 86.2 MCH (27.0 - 31.0 PG) 28.6 RDW (11.5 - 14.5 %) 18.6 H Plt Count (130 - 400 /CUMM) 286 MPV (7.4 - 10.4 FL) 8.4 Gran % (42.2 - 75.2 %) 80.8 H Lymphocytes % (20.5 - 51.1 %) 8.6 L Monocytes % (1.7 - 9.3 %) 10.0 H Eosinophils % (0 - 5 %) 0.4 Basophils % (0.0 - 2.0 %) 0.2 Absolute Granulocytes (1.4 - 6.5 /CUMM) 9.4 H Absolute Lymphocytes (1.2 - 3.4 /CUMM) 1.0 L Absolute Monocytes (0.10 - 0.60 /CUMM) 1.2 H Absolute Eosinophils (0.0 - 0.7 /CUMM) 0 Absolute Basophils (0.0 - 0.2 /CUMM) 0 PUBS MCHC (33.0 - 37.0 G/DL) 33.2 Toxicology Serum Alcohol (<10 MG/DL) < 10.0 Assessment/Plan Assessment/Plan 86yo F with abdominal pain and abscesses on CT, scheduled for IR drainage today. No surgical intervention. If patient's status changes please call with updates. Otherwise, care per primary team.
--- NOTE | 2017-01-16 11:20 | PN- Infect Dx ---
Subjective Subjective: Afebrile. She continues to complain of periumbilical pain and dry heaves. Objective Last 24 Hrs of Vital Signs/I&O Vital Signs Date Time Temp Pulse Resp B/P Pulse O2 O2 Flow FiO2 Ox Delivery Rate 01/16 0851 98.8 122 20 100/60 96 01/16 0800 94 Room Air 01/16 0058 98.2 84 18 100/50 93 Room Air 01/15 2103 84 102/58 03 1804 98/52 03/ 1714 98.2 90 18 98/60 95 Room Air 01/15 1151 116 110/60 Intake & Output 01/16 1600 01/16 0800 03 0000 Intake Total 300 20 Output Total 300 800 Balance 0 -780 Intake, IV 250 20 Intake, Oral 50 Number 1 Bowel Movements Output, Urine 300 800 Physical Exam Other Physical Findings: She appears comfortable in no acute distress Lungs crackles at the right base Heart irregular rhythm with no murmur Abdomen soft, tender on minimal palpation diffusely, particularly in the periumbilical area, with no guarding or rebound, positive bowel sounds Extremities trace edema both lower extremities Results Last 24 Hours of Lab Results: Laboratory Tests 01/16 01/15 0610 1400 Chemistry Sodium (137 - 145 mmol/L) 136 L 132 L Potassium (3.5 - 5.1 mmol/L) 3.2 L 3.9 Chloride (98 - 107 mmol/L) 101 99 Carbon Dioxide (22 - 30 mmol/L) 26 24 Anion Gap (5 - 16) 9 10 BUN (7 - 17 mg/dL) 11 11 Creatinine (0.5 - 1.0 mg/dL) 1.0 0.9 Estimated GFR (>60 ml/min) 52 L 59 L BUN/Creatinine Ratio (7 - 25 %) 11.0 12.2 Coagulation PT (9.4 - 12.5 SEC) 13.5 H INR (0.90 - 1.19) 1.29 H Hematology CBC w Diff NO MAN DIFF REQ NO MAN DIFF REQ WBC (4.8 - 10.8 /CUMM) 13.0 H 13.8 H RBC (4.20 - 5.40 /CUMM) 2.63 L 3.06 L Hgb (12.0 - 16.0 G/DL) 7.6 L 8.6 L Hct (37 - 47 %) 22.6 L 26.4 L MCV (81.0 - 99.0 FL) 85.8 86.4 MCH (27.0 - 31.0 PG) 28.8 28.1 RDW (11.5 - 14.5 %) 18.6 H 18.4 H Plt Count (130 - 400 /CUMM) 272 295 MPV (7.4 - 10.4 FL) 9.1 8.6 Gran % (42.2 - 75.2 %) 79.4 H 78.5 H Lymphocytes % (20.5 - 51.1 %) 10.9 L 11.9 L Monocytes % (1.7 - 9.3 %) 9.4 H 8.8 Eosinophils % (0 - 5 %) 0.2 0.1 Basophils % (0.0 - 2.0 %) 0.1 0.7 Absolute Granulocytes (1.4 - 6.5 /CUMM) 10.3 H 10.8 H Absolute Lymphocytes (1.2 - 3.4 /CUMM) 1.4 1.6 Absolute Monocytes (0.10 - 0.60 /CUMM) 1.2 H 1.2 H Absolute Eosinophils (0.0 - 0.7 /CUMM) 0 0 Absolute Basophils (0.0 - 0.2 /CUMM) 0 0.1 PUBS MCHC (33.0 - 37.0 G/DL) 33.6 32.5 L Last 24 Hours of Bill Results: Blood culture January 15 negative Assessment/Plan Impression: Stable on Ceftriaxone and Flagyl Day 2 of treatment for diverticulitis with abscess involving the transverse colon, with plans for aspiration/drainage under IR later today. She remains afebrile but white blood cell count is mildly elevated, presumably secondary to the diverticular process. Her diffuse abdominal discomfort may be related to the diverticulitis, though it appears to be more chronic and may therefore be secondary to some other process. Suggestion: 1. Await CT-guided aspiration of the abscess 2. Continue Ceftriaxone and Flagyl pending above
[2017-01-16 14:00] VITALS: BP 88/40
--- NOTE | 2017-01-16 14:07 | PN- Cardiology ---
Subjective Subjective: * Breathing is improved to baseline without any shortness of breath. No chest discomfort. * Atrial fibrillation with slightly increased heart rate. * drainage of possible abscess not performed * Potassium 3.2 with normal creatinine * decreasing H/H to 7.6/22.6 Objective Vital Signs and I&Os Vital Signs Date Time Temp Pulse Resp B/P Pulse O2 O2 Flow FiO2 Ox Delivery Rate 01/16 0851 98.8 122 20 100/60 96 01/16 0800 94 Room Air 01/16 0058 98.2 84 18 100/50 93 Room Air 01/15 2103 84 102/58 01/15 1804 98/52 / 1714 98.2 90 18 98/60 95 Room Air Intake & Output 01/16 1600 01/16 0800 01/16 0000 01/15 1600 01/15 0800 01/15 0000 Intake Total 300 20 640 490 0 Output Total 554 850 0573 650 Balance 0 -780 -460 -160 0 Intake, IV 250 20 640 390 Intake, Oral 50 100 0 Number 1 1 0 Bowel Movements Output, Urine 053 217 9257 650 Patient 140 lb 140 lb 125 lb Weight Physical Exam: General: WD/ WN female in NAD; alert and oriented x 3 Neck: no JVD, no carotid bruit Heart: irregularly irregular with tachycardia, no murmur Lungs: scant crackles at the right base Abdomen: soft, NT, +ve bowel sounds Extremties: no edema Assessment/Plan Assessment/Plan * Shayna is doing better in regard to her breathing. Continue Lasix at 40mg PO daily. Continue her current dose of Metoprolol. This patient is hypokalemic which will likely become worse with Lasix. I recommend KCL 40 meq po x 1 now and then continue with daily kdur at 20meq. * I believe that some of her fatigue and tachycaria is due to her anemia which, in turn, is likely due to her chemotherapy. She is tolerating this tachycardia reasonably well at this point in time. We will monitor it expectantly. Guaiac all stools. Continue telemetry? Yes
--- NOTE | 2017-01-16 14:20 | PN- Psychiatry ---
Assessment/Plan Impression: The patient is scheduled for a CT-guided aspiration of an abdominal abcess, and is receiving IV antibiotics, per ID. We discussed her son's report that she had made a suicide attempt at age 23. She reports that this was a "fake" attempt. She continues to deny any thoughts of self-harm since that time. We feel that she would benefit from [place] outpatient psychiatry, with which she agrees. It is unclear from her son's report if she ever received any treatment for her "suicide attempt." The patient minimizes any concern for her mood and mental status, but is not a danger to her self. We do not know her discharge date, and suspect she may require rehab at an F. Although she agrees to call the number on the card I gave her to set up an intake appointment at [facility], we ask that the receiving facility call to make an appointment for her when her discharge date is known. Suggestion: 1. Please include in the discharge instructions, and also on the W-10, a request to contact [facility] to make an intake appointment when the patient's discharge date from the nursing facility is known. [address] [place] [address] . We will continue to follow along with you. Richar Gomez APRN, Pager [phone] Subjective Subjective: Alert and oriented. Sitting in the bedside chair, she is calm, conversational and pleasant. Mood "good" with congruent affect. She denies SI/HI. Thought processes and content WNL Objective Last 24 Hrs of Vital Signs/I&O Vital Signs Date Time Temp Pulse Resp B/P Pulse O2 O2 Flow FiO2 Ox Delivery Rate 01/16 2130 104 110/50 01/16 2124 104 110/50 01/16 1600 96 Room Air 01/16 1530 118 18 98/52 96 Room Air 01/16 1401 111 88/40 01/16 1400 96 88/40 01/16 0851 98.8 122 20 100/60 96 01/16 0800 94 Room Air / 0058 98.2 84 18 100/50 93 Room Air Laboratory Tests 01/16 0610 Chemistry Sodium (137 - 145 mmol/L) 136 L Potassium (3.5 - 5.1 mmol/L) 3.2 L Chloride (98 - 107 mmol/L) 101 Carbon Dioxide (22 - 30 mmol/L) 26 Anion Gap (5 - 16) 9 BUN (7 - 17 mg/dL) 11 Creatinine (0.5 - 1.0 mg/dL) 1.0 Estimated GFR (>60 ml/min) 52 L BUN/Creatinine Ratio (7 - 25 %) 11.0 Coagulation PT (9.4 - 12.5 SEC) 13.5 H INR (0.90 - 1.19) 1.29 H Hematology CBC w Diff NO MAN DIFF REQ WBC (4.8 - 10.8 /CUMM) 13.0 H RBC (4.20 - 5.40 /CUMM) 2.63 L Hgb (12.0 - 16.0 G/DL) 7.6 L Hct (37 - 47 %) 22.6 L MCV (81.0 - 99.0 FL) 85.8 MCH (27.0 - 31.0 PG) 28.8 RDW (11.5 - 14.5 %) 18.6 H Plt Count (130 - 400 /CUMM) 272 MPV (7.4 - 10.4 FL) 9.1 Gran % (42.2 - 75.2 %) 79.4 H Lymphocytes % (20.5 - 51.1 %) 10.9 L Monocytes % (1.7 - 9.3 %) 9.4 H Eosinophils % (0 - 5 %) 0.2 Basophils % (0.0 - 2.0 %) 0.1 Absolute Granulocytes (1.4 - 6.5 /CUMM) 10.3 H Absolute Lymphocytes (1.2 - 3.4 /CUMM) 1.4 Absolute Monocytes (0.10 - 0.60 /CUMM) 1.2 H Absolute Eosinophils (0.0 - 0.7 /CUMM) 0 Absolute Basophils (0.0 - 0.2 /CUMM) 0 PUBS MCHC (33.0 - 37.0 G/DL) 33.6
[2017-01-16 15:30] VITALS: BP 98/52
--- NOTE | 2017-01-16 16:50 | CT SCAN REPORT ---
EXAMINATION: Limited CT PELVIS WITH ORAL CONTRAST CLINICAL INFORMATION: Interloop, rim-enhancing abscess. CT-guided fluid aspiration requested. COMPARISON: CT chest abdomen pelvis 01/14/2017 TECHNIQUE: Helical scanning was performed with submillimeter collimation through the upper pelvis with the use of oral contrast. DLP: 183 mGy-cm FINDINGS: Cross-sectional imaging obtained through the upper pelvis for procedural planning demonstrated several thick walled loops of small and large bowel. No focal fluid collection identified in the region of suspected interloop abscess. Diverticulosis of the colon is present. A small amount of free fluid is appreciated deep within the pelvic cul-de-sac. IMPRESSION: CT guided aspiration not performed as no focal fluid collection was identified in the region of suspected interloop abscess. Multiple thick-walled loops of small and large bowel in the region suggesting inflammatory or infectious etiology. Neoplasm is within the differential but less likely.
--- NOTE | 2017-01-16 17:30 | Event Note ---
Event Note Event Note: Tried to call patient's eldest son Juliocesar several times to update him about her clinical condition as per patient's wish. No response was obtained after several attempts. Will try and call again in am to update him about her status.
[2017-01-16 21:30] VITALS: BP 110/50
[2017-01-17 00:37] VITALS: BP 98/52
--- NOTE | 2017-01-17 07:20 | PN- Hematology ---
Subjective Subjective: Abdominal pain slightly improved, wishes to eat Review of Systems: 12 point review of systems otherwise unchanged Objective Vital Signs and I&Os Vital Signs Date Time Temp Pulse Resp B/P Pulse O2 O2 Flow FiO2 Ox Delivery Rate 01/17 0037 97.9 75 20 98/52 93 01/16 2130 104 110/50 01/16 2124 104 110/50 01/16 1600 96 Room Air 01/16 1530 118 18 98/52 96 Room Air 01/16 1401 111 88/40 01/16 1400 96 88/40 01/16 0851 98.8 122 20 100/60 96 01/16 0800 94 Room Air Intake & Output 01/17 0801/17 0000 01/16 1600 01/16 0801/16 0000 01/15 1600 Intake Total 860 340 300 20 640 Output Total 800 546 384 2253 Balance 60 340 0 -780 -460 Intake, IV 140 340 250 20 640 Intake, Oral 720 50 Number 1 3 1 1 1 Bowel Movements Output, Urine 800 931 993 8110 Patient 140 lb Weight Gen.: in NAD ENT: Sclera anicteric Chest: Normal respiratory effort, clear breath sounds Cor: RRR, no extra sounds Abdomen: Soft, bowel sounds present, minimal left-sided abdominal tenderness no rebound Extremities: Without clubbing, cyanosis, or edema Neurology: Alert and oriented 3, no gross deficit Current Medications: Current Medications Sig/Timi Start time Last Medication Dose Route Stop Time Status Admin Acetaminophen 650 MG Q6P PRN 01/15 0200 AC PO Acetaminophen 1,000 MG Q6 PRN 01/15 0200 AC IV Ceftriaxone Sodium 1,000 MG DAILY 01/15 1000 AC 01/16 IV 0944 Diltiazem HCl 125 MG Q24H 01/15 0530 AC 01/16 Sodium Chloride 100 ML IV 06 Furosemide 40 MG 7:30 AM, & 4:30 PM 01/15 1300 DC 01/16 IV 0736 Guaifenesin/ 10 ML Q4H PRN 01/15 0200 AC Dextromethorphan PO Levothyroxine Sodium 0.125 MG DAILY AC 01/15 07 AC 01/16 PO 06 Magnesium Oxide 400 MG DAILY 01/15 1000 AC 01/16 PO 1819 Melatonin 3 MG AT BEDTIME 01/15 2200 AC 01/16 PO 212 Metoprolol Tartrate 50 MG BID 01/15 0500 AC 01/16 PO 2124 Metronidazole 500 MG IQ8 01/15 0800 AC 01/17 N/A 1 UNIT IV 0037 Morphine Sulfate 2 MG Q4P PRN 01/15 0200 AC IV Nicotinic Acid 500 MG WITH MEALS 01/15 0800 AC PO Pantoprazole Sodium 40 MG DAILY 01/16 1000 AC 01/16 IV 0944 Patient Medication 1 ED .STK-MED ONE 01/16 1409 DC Teaching ED 01/16 1410 Potassium Chloride 20 MEQ DAILY 01/17 1000 AC PO Potassium Chloride 40 MEQ ONCE ONE 01/16 1615 DC 01/16 PO 01/16 1616 1819 Potassium Chloride 10 MEQ ONCE ONE 01/16 0900 DC 01/16 IV 01/16 0901 1111 Potassium Chloride 10 MEQ ONCE ONE 01/16 0800 DC 01/16 IV 01/16 0801 0944 Potassium Chloride 20 MEQ DAILY 01/15 1000 AC PO Prochlorperazine 10 MG Q6 PRN 01/15 0200 AC 01/16 PO 0736 Sodium Chloride 500 ML BOLUS ONE 01/16 1430 DC 01/16 IV 01/16 1529 1446 Tiotropium [place] 1 PUF DAILY 01/15 1000 AC 01/16 INH 0944 Vitamin E 100 IU DAILY 01/15 1000 AC 01/16 PO 1819 Results Last 24 Hours of Lab Results: Laboratory Tests 01/17 01/16 0650 1139 Chemistry Sodium Pending Potassium Pending Chloride Pending Carbon Dioxide Pending Anion Gap Pending BUN Pending Creatinine Pending BUN/Creatinine Ratio Pending Hematology CBC w Diff Pending WBC Pending RBC Pending Hgb Pending Hct Pending MCV Pending MCH Pending RDW Pending Plt Count Pending MPV Pending PUBS MCHC Pending Other Body Source Fluid WBC Cancelled Fld Total RBCs Counted Cancelled Last hematocrit approximate 22% Assessment/Plan Assessment/Recommendations: 1. GI/ID-no obvious fluid collection and repeat CAT scan, clinically stable As per ID/surgery 2. 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 Worsened anemia- Recommend- Check stool for occult blood Consider red cell transfusion Please call if any further problems develop during his hospitalization
[2017-01-17 08:00] VITALS: BP 96/50
[2017-01-17 08:06] LABS: ABSOLUTE BASOPHIL COUNT 0 /CUMM (0.0-0.2); ABSOLUTE EOSINOPHIL COUNT 0 /CUMM (0.0-0.7); ABSOLUTE GRANULOCYTE CT 7.3 /CUMM (1.4-6.5); ABSOLUTE LYMPH COUNT 1.5 /CUMM (1.2-3.4); ABSOLUTE MONOCYTE COUNT 1.4 /CUMM (0.10-0.60); BASOPHIL % 0.3 % (0.0-2.0); EOSINOPHIL % 0.4 % (0-5); GRANULOCYTE % 71.2 % (42.2-75.2); MEAN CORPUSCULAR HGB 27.9 PG (27.0-31.0); MEAN CORPUSCULAR HGB CONC 32.4 G/DL (33.0-37.0); MEAN CORPUSCULAR VOLUME 86.2 FL (81.0-99.0); MEAN PLATELET VOLUME 8.1 FL (7.4-10.4); PLATELET COUNT 276 /CUMM (130-400); RBC DISTRIBUTION WIDTH 18.4 % (11.5-14.5); RED BLOOD CELL CT 2.62 /CUMM (4.20-5.40); WHITE BLOOD CELL COUNT 10.3 /CUMM (4.8-10.8)
[2017-01-17 08:35] LABS: HEMATOCRIT 22.6 % (37-47)
--- NOTE | 2017-01-17 11:41 | PN- Infect Dx ---
Subjective Subjective: Afebrile. She notes decreased abdominal pain but still has occasional dry heaves. She also reports loose dark stools. She is tolerating a liquid diet. Objective Last 24 Hrs of Vital Signs/I&O Vital Signs Date Time Temp Pulse Resp B/P Pulse O2 O2 Flow FiO2 Ox Delivery Rate 01/18 800 97.7 94 20 96/50 92 Room Air 01/17 0037 97.9 75 20 98/52 93 01/16 2130 104 110/50 01/16 2124 104 110/50 01/16 1600 96 Room Air 01/16 1530 118 18 98/52 96 Room Air 01/16 1401 111 88/40 01/16 1400 96 88/40 Intake & Output 01/17 1600 01/17 0801/17 0000 Intake Total 860 Output Total 800 Balance 60 Intake, IV 140 Intake, Oral 720 Number 1 3 Bowel Movements Output, Urine 800 Physical Exam Other Physical Findings: She appears comfortable in no acute distress Lungs are clear Heart irregular rhythm with no murmur Abdomen soft, tender on minimal palpation diffusely, with guarding, without rebound, positive bowel sounds Extremities trace pedal edema both lower extremities Results Last 24 Hours of Lab Results: Laboratory Tests 01/17 01/16 0650 1139 Chemistry Sodium (137 - 145 mmol/L) 135 L Potassium (3.5 - 5.1 mmol/L) 3.4 L Chloride (98 - 107 mmol/L) 100 Carbon Dioxide (22 - 30 mmol/L) 26 Anion Gap (5 - 16) 8 BUN (7 - 17 mg/dL) 11 Creatinine (0.5 - 1.0 mg/dL) 1.0 Estimated GFR (>60 ml/min) 52 L BUN/Creatinine Ratio (7 - 25 %) 11.0 Hematology CBC w Diff NO MAN DIFF REQ WBC (4.8 - 10.8 /CUMM) 10.3 RBC (4.20 - 5.40 /CUMM) 2.62 L Hgb (12.0 - 16.0 G/DL) 7.3 *L Hct (37 - 47 %) 22.6 L MCV (81.0 - 99.0 FL) 86.2 MCH (27.0 - 31.0 PG) 27.9 RDW (11.5 - 14.5 %) 18.4 H Plt Count (130 - 400 /CUMM) 276 MPV (7.4 - 10.4 FL) 8.1 Gran % (42.2 - 75.2 %) 71.2 Lymphocytes % (20.5 - 51.1 %) 14.6 L Monocytes % (1.7 - 9.3 %) 13.5 H Eosinophils % (0 - 5 %) 0.4 Basophils % (0.0 - 2.0 %) 0.3 Absolute Granulocytes (1.4 - 6.5 /CUMM) 7.3 H Absolute Lymphocytes (1.2 - 3.4 /CUMM) 1.5 Absolute Monocytes (0.10 - 0.60 /CUMM) 1.4 H Absolute Eosinophils (0.0 - 0.7 /CUMM) 0 Absolute Basophils (0.0 - 0.2 /CUMM) 0 PUBS MCHC (33.0 - 37.0 G/DL) 32.4 L Other Body Source Fluid WBC Cancelled Fld Total RBCs Counted Cancelled Last 24 Hours of Bill Results: Blood cultures January 15 negative Blood culture January 16 negative Recent Imaging Studies: CT of the pelvis with oral and IV contrast January 15 did not reveal any focal fluid collection suggestive of any abscess; multiple thick-walled loops of small and large bowel in the region suggesting inflammatory or infectious etiology Assessment/Plan Impression: Overall improved on Ceftriaxone and Flagyl Day 3 of treatment for presumed diverticulitis, with follow-up CT scan yesterday with oral contrast negative for any evidence of an abscess; therefore no aspiration or drainage was performed. She remains afebrile with white blood cell count now normal and, given overall improvement, she can be changed to oral antibiotics once she is taking po adequately. Suggestion: 1. Continue Ceftriaxone and Flagyl, with change to Ciprofloxacin po 500 mg every 12 hours and Flagyl 500 mg by mouth every 8 hours if continues to improve and tolerates an advanced diet
--- NOTE | 2017-01-17 11:46 | PN- Housestaff ---
[facility] 01/17/17 1126: Subjective Follow-up For: Diverticulitis with possible intra-abdominal abscess A. fib with rapid ventricular response [place] large B-cell lymphoma Complaints: PATIENT FEEL ABDOMINAL PAIN IS BETTER Tele-Events Since Last Visit: aFIB 76-91 BPM Subjective: Patient feels much better this am. Abdominal pain improvoing.No fluid collection was identified on CT with oral contrast and hence no aspiration done. It was mostly thick-walled loops of small and large bowel in the region suggesting inflammatory or infectious etiology. No diverticulitis reported on CT scan. H/h dropped this am to 7.3/22.6. Patient will get 1 unit of blood transfusion. Review of Systems Constitutional: Reports: malaise, weakness. EENTM: Reports: no symptoms. Cardiovascular: Reports: no symptoms. Respiratory: Reports: no symptoms. Gastrointestinal: Reports: abdominal pain, changes in stool (dark stools). Genitourinary: Reports: no symptoms. Musculoskeletal: Reports: no symptoms. Objective Last 24 Hrs of Vital Signs/I&O Vital Signs Date Time Temp Pulse Resp B/P Pulse O2 O2 Flow FiO2 Ox Delivery Rate 01/17 08 97.7 94 20 96/50 92 Room Air / 0037 97.9 75 20 98/52 93 /07 2130 104 110/50 03/07 2124 104 110/50 /07 1600 96 Room Air / 1530 118 18 98/52 96 Room Air / 1401 111 88/40 03/07 1400 96 88/40 Intake & Output / 1600 /08 0800 03/08 0000 Intake Total 860 Output Total 800 Balance 60 Intake, IV 140 Intake, Oral 720 Number 1 3 Bowel Movements Output, Urine 800 Physical Exam General Appearance: Alert, Oriented X3, Cooperative, Mild Distress Skin: No Rashes, No Breakdown, No Significant Lesion, port a cath in the right upper chest, clean , no redness HEENT: Atraumatic, PERRLA, EOMI Neck: No JVD Lymphatic: Cervical nl Cardiovascular: No Murmurs, irregularly irregular HR Lungs: BIBASILAR CRACKLES Abdomen: Normal Bowel Sounds, Soft, TENDENESS IN THE UMBILICAL AREA, NO GUARDING OR RIGIDITY Neurological: Normal Speech, Normal Tone, Sensation Intact Extremities: No Clubbing, No Cyanosis, No Edema, Normal Pulses Current Medications: Current Medications Sig/Timi Start time Last Medication Dose Route Stop Time Status Admin Acetaminophen 650 MG Q6P PRN 01/15 0200 AC PO Acetaminophen 1,000 MG Q6 PRN 01/15 0200 AC IV Ceftriaxone Sodium 1,000 MG DAILY 01/15 1000 AC 01/17 IV 1052 Diltiazem HCl 125 MG Q24H 01/15 0530 AC 01/16 Sodium Chloride 100 ML IV 0629 Guaifenesin/ 10 ML Q4H PRN 01/15 0200 AC Dextromethorphan PO Levothyroxine Sodium 0.125 MG DAILY AC 01/15 07 AC 01/17 PO 1052 Magnesium Oxide 400 MG DAILY 01/15 1000 AC 01/17 PO 1052 Melatonin 3 MG AT BEDTIME 01/15 2200 AC 01/16 PO 2124 Metoprolol Tartrate 50 MG BID 01/15 0500 AC 01/16 PO 2124 Metronidazole 500 MG IQ8 01/15 08 AC 01/17 N/A 1 UNIT IV 1050 Morphine Sulfate 2 MG Q4P PRN 01/15 0200 AC IV Nicotinic Acid 500 MG WITH MEALS 01/16 800 AC PO Omeprazole 40 MG DAILY AC 01/17 1123 UNVr PO Pantoprazole Sodium 40 MG DAILY 01/16 1000 DC 01/17 IV 1050 Patient Medication 1 ED .STK-MED ONE 01/16 1409 DC Teaching ED 01/16 1410 Potassium Chloride 20 MEQ DAILY 01/17 1000 AC 01/17 PO 1058 Potassium Chloride 40 MEQ ONCE ONE 01/16 1615 DC 01/16 PO 01/16 1616 1819 Potassium Chloride 20 MEQ DAILY 01/15 1000 AC 01/17 PO 1053 Prochlorperazine 10 MG Q6 PRN 01/15 0200 AC 01/16 PO 0736 Sodium Chloride 500 ML BOLUS ONE 01/16 1430 DC 01/16 IV 01/16 1529 1446 Tiotropium [place] 1 PUF DAILY 01/15 1000 AC 01/17 INH 1058 Vitamin E 100 IU DAILY 01/15 1000 AC 01/17 PO 1053 Last 24 Hrs of Lab/Bill Results Last 24 Hrs of Labs/Mics: Laboratory Tests 01/17/17 0650: Anion Gap 8, Estimated GFR 52 L, BUN/Creatinine Ratio 11.0, CBC w Diff NO MAN DIFF REQ, RBC 2.62 L, MCV 86.2, MCH 27.9, RDW 18.4 H, MPV 8.1, Gran % 71.2, Lymphocytes % 14.6 L, Monocytes % 13.5 H, Eosinophils % 0.4, Basophils % 0.3, Absolute Granulocytes 7.3 H, Absolute Lymphocytes 1.5, Absolute Monocytes 1.4 H, Absolute Eosinophils 0, Absolute Basophils 0, PUBS MCHC 32.4 L 01/16/17 1139: Fluid WBC Cancelled, Fld Total RBCs Counted Cancelled Microbiology 01/16 1425 BLOOD: Blood Culture - RECD 01/16 1425 BLOOD: Blood Culture - CAN Cancelled: SPECIMEN NOT RECEIVED IN LABORATORY 01/16 113 BODY FLUID: Body Fluid Culture - COLB 01/16 113 BODY FLUID: Gram Stain - COLB Assessment/Plan Assessment: 86 yo F from [facility], with h/o Afib on xarelto, [place] large B-cell lymphoma on chemo (last was 2 weeks ago) with significant mediastinal lymphadenopathy, bone mets, neutropenia, CKD stage 3A,mild asthma, 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 Plan: #1 ? Diverticulitis -No intra-abdominal abscess seen in the CT scan with oral contast. No diverticulitis. Multiple thick-walled loops of small and large bowel in the region suggesting inflammatory or infectious etiology. So, no drainage. -IV ceftriaxone and Flagyl day 4. Will consult ID regarding dc abx as no diverticulitis seen -Pain control with IV morphine and IV Tylenol -Continue GI prophylaxis -Cultures negative so far. -Patient tolerating diet, will advance to full full liquids. -Xarelto is on hold due to drop in H/H #2 A. fib with rapid ventricular response -Patient being monitored on telemetry. No events. -Heart rate better controlled on the Cardizem drip -ACS ruled out with negative troponins and EKG -Continue metoprolol 50 mg twice a day -Cardiologyfollowing , will discuss about converting to PO cardizem. #3 Anemia of chronic disease. -H/H dropping -Iron studies suggest anemia of chronic disease -1 PRBC transfusion -Guaic all stools -Holding Xarelto #4 History of HFwPEF/ Dizziness/ Low BP -Chest x-ray showed evidence of congestion. -Lasix was started but discontinued now due to dizzines and low BP. -Will discuss with cardio rehgarding restarting it. #5 Non-Hodgkin large B-cell lymphoma -Treated with 6 cycles of Rituxan, Cytoxan, DESIGN COORDINATOR 16, vincristine and prednisone. Last chemotherapy 2 weeks ago with prednisone for 4 days post chemotherapy. - Dr. Florentino aware. DVT prophylaxis Alps(Xarelto on hold for low H/H) FULL LIQUID DIET Severe pain pathway Problem List: 1. ATRIAL FIBRILATION 2. Weakness 3. CONGESTIVE HEART FAILURE 4. Weakness 5. Non Hodgkin's lymphoma Pain Ratin Pain Location: ABDOMEN Pain Goal: Pain 4 or less Pain Plan: V Tylenol and IV morphine Tomorrow's Labs & Rationales: CBC...ANEMIA MARY MAYBERRY,RUPESH 01/17/17 1438: Attending MD Review Statement Attending Statement Attending MD Statement: examined this patient, discuss w/resident/PA/CANDY ROLLER, agreed w/resident/PA/CANDY ROLLER, reviewed EMR data (avail), discussed with nursing, discussed with case mgmt, reviewed images Attending Assessment/Plan: Patient is not a very reliable informant. I'm finding it hard to tell whether her abdominal pain is actually better. Nonetheless the CT didn't show any abscess just thickened bowel questionable lymphoma with likely diverticulitis. We has started a diet and advancing her diet. Of note she is anemic, she is chronically anemic with indices that appeared to suggest anemia of chronic disease. Given her tachycardia and her borderline blood pressure will transfuse her 1 unit. Will guaiac all stools but this will become an issue when we restart her Xarelto which we will have to do pretty soon. We'll transition her to by mouth Cardizem, ambulate her and follow-up closely.
[2017-01-17 15:30] VITALS: BP 98/52
--- NOTE | 2017-01-17 18:55 | PN- Cardiology ---
Subjective Subjective: * Doing better. She was able to eat and has no chest discomfort, shortness of breath, lightheadedness or palpitations. * potassium is 3.4 * decreasing H/H s/p 1 unit of pRBC's * atrial fibrillation with controlled heart rate on cardizem drip Objective Vital Signs and I&Os Vital Signs Date Time Temp Pulse Resp B/P Pulse O2 O2 Flow FiO2 Ox Delivery Rate 01/17 1530 98.1 81 20 98/52 95 Room Air 01/17 1000 96/68 01/17 0800 97.7 94 20 96/50 92 Room Air 01/17 0037 97.9 75 20 98/52 93 01/16 2130 104 110/50 01/16 2124 104 110/50 Intake & Output 01/17 1600 01/17 0801/17 0000 01/16 1600 01/16 0801/16 0000 Intake Total 550 860 340 300 20 Output Total 500 800 300 800 Balance 50 60 340 0 -780 Intake, IV 150 140 340 250 20 Intake, Oral 400 720 50 Number 2 1 3 1 1 Bowel Movements Output, Urine 500 800 300 800 Patient 140 lb Weight Physical Exam: General: WD/ WN female in NAD; alert and oriented x 3 Neck: no JVD, no carotid bruit Heart: irregularly irregular with tachycardia, no murmur Lungs: scant crackles at the right base Extremties: 1+ leg edema Assessment/Plan Assessment/Plan * Shayna is doing better in regard to her breathing. Continue Lasix at 40mg PO daily. Ensure that she is on a low sodium diet. Continue her current dose of Metoprolol. Begin cardizem SR 60mg BID and stop her IV cardizem after the second oral dose. This patient is hypokalemic which will likely become worse with Lasix. I recommend KCL 40 meq po daily. Please give this in pill form as per the patient's preference. * Please change niacin to Niaspan. * I believe that some of her fatigue and tachycaria is due to her anemia which, in turn, is likely due to her chemotherapy. At her baseline she has pernicious anemia. Please recheck her H/H post transfusion. She is tolerating this tachycardia reasonably well at this point in time. Guaiac all stools. Continue telemetry? Yes
[2017-01-18 00:45] VITALS: BP 90/60
[2017-01-18 08:12] LABS: ABSOLUTE EOSINOPHIL COUNT 0.1 /CUMM (0.0-0.7); ABSOLUTE MONOCYTE COUNT 1.9 /CUMM (0.10-0.60); MEAN PLATELET VOLUME 8.3 FL (7.4-10.4); RBC DISTRIBUTION WIDTH 18.7 % (11.5-14.5)
[2017-01-18 08:30] VITALS: BP 90/50
[2017-01-18 08:51] LABS: ABSOLUTE BASOPHIL COUNT 0.1 /CUMM (0.0-0.2); ABSOLUTE GRANULOCYTE CT 8.6 /CUMM (1.4-6.5); ABSOLUTE LYMPH COUNT 2.3 /CUMM (1.2-3.4); BASOPHIL % 0.4 % (0.0-2.0); EOSINOPHIL % 0.6 % (0-5); GRANULOCYTE % 66.7 % (42.2-75.2); MEAN CORPUSCULAR HGB 28.4 PG (27.0-31.0); MEAN CORPUSCULAR HGB CONC 33.4 G/DL (33.0-37.0); MEAN CORPUSCULAR VOLUME 85.1 FL (81.0-99.0); PLATELET COUNT 300 /CUMM (130-400); WHITE BLOOD CELL COUNT 12.9 /CUMM (4.8-10.8)
[2017-01-18 08:58] LABS: HEMATOCRIT 28.5 % (37-47); RED BLOOD CELL CT 3.34 /CUMM (4.20-5.40)
--- NOTE | 2017-01-18 10:57 | PN- Infect Dx ---
Subjective Subjective: Afebrile. She complains of shakiness/unsteadiness on her feet. She does admit to improvement in her abdominal discomfort and has tolerated a solid diet. She had 5 bowel movements documented yesterday, with 1 guaiac positive stool reported. Objective Last 24 Hrs of Vital Signs/I&O Vital Signs Date Time Temp Pulse Resp B/P Pulse O2 O2 Flow FiO2 Ox Delivery Rate 01/18 830 97.8 112 20 90/50 97 Room Air 01/18 0800 Room Air 01/18 0045 97.6 94 20 90/60 98 Room Air 01/17 2146 113 92/60 01/17 2146 113 92/60 01/17 1530 98.1 81 20 98/52 95 Room Air Intake & Output 01/18 1600 01/18 0801/18 0000 Intake Total 140 500 Output Total 300 600 Balance -160 -100 Intake, IV 20 20 Intake, Oral 120 480 Number 2 2 Bowel Movements Output, Urine 300 600 Physical Exam Other Physical Findings: She appears comfortable in no acute distress Lungs crackles at the left base Heart irregular rhythm with no murmur Abdomen soft, tender on minimal palpation in the periumbilical area, with guarding but no rebound, positive bowel sounds Extremities trace pedal edema both lower extremities Results Last 24 Hours of Lab Results: Laboratory Tests 01/18 625 Chemistry Sodium (137 - 145 mmol/L) 136 L Potassium (3.5 - 5.1 mmol/L) 3.6 Chloride (98 - 107 mmol/L) 102 Carbon Dioxide (22 - 30 mmol/L) 26 Anion Gap (5 - 16) 8 BUN (7 - 17 mg/dL) 10 Creatinine (0.5 - 1.0 mg/dL) 1.0 Estimated GFR (>60 ml/min) 52 L BUN/Creatinine Ratio (7 - 25 %) 10.0 Hematology CBC w Diff NO MAN DIFF REQ WBC (4.8 - 10.8 /CUMM) 12.9 H RBC (4.20 - 5.40 /CUMM) 3.34 L Hgb (12.0 - 16.0 G/DL) 9.5 L Hct (37 - 47 %) 28.5 L MCV (81.0 - 99.0 FL) 85.1 MCH (27.0 - 31.0 PG) 28.4 RDW (11.5 - 14.5 %) 18.7 H Plt Count (130 - 400 /CUMM) 300 MPV (7.4 - 10.4 FL) 8.3 Gran % (42.2 - 75.2 %) 66.7 Lymphocytes % (20.5 - 51.1 %) 17.7 L Monocytes % (1.7 - 9.3 %) 14.6 H Eosinophils % (0 - 5 %) 0.6 Basophils % (0.0 - 2.0 %) 0.4 Absolute Granulocytes (1.4 - 6.5 /CUMM) 8.6 H Absolute Lymphocytes (1.2 - 3.4 /CUMM) 2.3 Absolute Monocytes (0.10 - 0.60 /CUMM) 1.9 H Absolute Eosinophils (0.0 - 0.7 /CUMM) 0.1 Absolute Basophils (0.0 - 0.2 /CUMM) 0.1 PUBS MCHC (33.0 - 37.0 G/DL) 33.4 Last 24 Hours of Bill Results: Blood cultures January 15 and January 16 negative Assessment/Plan Impression: Stable on Ceftriaxone and Flagyl Day 4 of treatment for presumed diverticulitis, with white blood cell count increased today, possibly secondary to the recent blood transfusion, but a persistent intra-abdominal process, related to her diverticulitis, must be considered, particularly of her white blood cell count remains elevated. She can be switched to Ciprofloxacin and Flagyl as recommended yesterday. Suggestion: 1. Stool for C. difficile 2. Consider repeat CT of the abdomen and pelvis in the a.m. if her white blood cell count remains elevated 3. Can change to Ciprofloxacin 500 mg po every 12 hours and Flagyl 500 mg by mouth every 8 hours
[2017-01-18 11:00] VITALS: BP 108/62
--- NOTE | 2017-01-18 14:06 | PN- Housestaff ---
[facility] 01/18/17 1339: Subjective Follow-up For: Diverticulitis? Goldy marques with rapid ventricular response [place] large B-cell lymphoma Complaints: weakness and malaise Tele-Events Since Last Visit: Goldy marques 80-115 Subjective: She complains of shakiness and weakess all over the body. Had 5 bowel movements one of which was guaiac positive. Abdominal discomfort is improved Review of Systems Constitutional: Reports: malaise, weakness. EENTM: Reports: no symptoms. Cardiovascular: Reports: no symptoms. Respiratory: Reports: no symptoms. Gastrointestinal: Reports: no symptoms, changes in stool. Genitourinary: Reports: no symptoms. Musculoskeletal: Reports: muscle pain. Skin: Reports: no symptoms. Neurological/Psychological: Reports: no symptoms. Objective Last 24 Hrs of Vital Signs/I&O Vital Signs Date Time Temp Pulse Resp B/P Pulse O2 O2 Flow FiO2 Ox Delivery Rate 01/18 1110 120 108/62 01/18 1109 120 108/62 01/18 1100 120 20 108/62 01/18 0830 97.8 112 20 90/50 97 Room Air 01/18 0800 Room Air 01/18 0045 97.6 94 20 90/60 98 Room Air 01/17 2146 113 92/60 08 2146 113 92/60 /08 1530 98.1 81 20 98/52 95 Room Air Intake & Output 01/18 1600 01/18 0800 01/18 0000 Intake Total 140 500 Output Total 300 600 Balance -160 -100 Intake, IV 20 20 Intake, Oral 120 480 Number 2 2 Bowel Movements Output, Urine 300 600 Physical Exam General Appearance: Alert, Oriented X3, Cooperative, Mild Distress Skin: No Rashes, No Breakdown, No Significant Lesion, Port-A-Cath in the upper chest. Intact HEENT: Atraumatic, PERRLA, EOMI Neck: Supple, No JVD Lymphatic: Cervical nl Cardiovascular: Normal S1, Normal S2, irregularly irregular heart rate Lungs: bilateral basal crackles Abdomen: Normal Bowel Sounds, Soft, mild tenderness around theumbilical area Neurological: Normal Speech, Normal Tone, Sensation Intact, Cranial Nerves 3-12 NL Extremities: No Clubbing, No Cyanosis, No Edema, Normal Pulses Current Medications: Current Medications Sig/Timi Start time Last Medication Dose Route Stop Time Status Admin Acetaminophen 650 MG Q6P PRN 01/15 0200 AC PO Acetaminophen 1,000 MG Q6 PRN 01/15 0200 AC IV Al Hydroxide/Mg 30 ML ONCE ONE 01/17 2215 DC 01/17 Hydroxide PO 01/18 2216 2217 Al Hydroxide/Mg 30 ML .STK-MED ONE 01/17 2214 DC Hydroxide PO 01/17 2215 Ceftriaxone Sodium 1,000 MG DAILY 01/15 1000 DC 01/17 IV 1052 Ciprofloxacin 500 MG BID 01/18 1000 AC 01/18 PO 01/22 0959 1109 Diltiazem HCl 60 MG BID 01/17 2200 AC 01/18 PO 1109 Diltiazem HCl 125 MG Q24H 01/15 0530 DC 01/18 Sodium Chloride 100 ML IV 01/18 1030 0616 Furosemide 40 MG DAILY 01/18 1000 AC 01/18 PO 1110 Guaifenesin 10 ML .STK-MED ONE 01/17 2143 DC PO 01/17 2144 Guaifenesin/ 10 ML Q4H PRN 01/15 0200 AC 01/17 Dextromethorphan PO 2147 Levothyroxine Sodium 0.125 MG DAILY AC 01/15 0700 AC 01/18 PO 0616 Magnesium Oxide 400 MG DAILY 01/15 1000 AC 01/18 PO 1110 Melatonin 3 MG AT BEDTIME 01/15 2200 AC 01/17 PO 2146 Metoprolol Tartrate 50 MG BID 01/15 0500 AC 01/18 PO 1110 Metronidazole 500 MG IQ8 01/18 0816 AC 01/18 PO 1109 Metronidazole 500 MG IQ8 01/15 0800 DC 01/17 N/A 1 UNIT IV 2324 Morphine Sulfate 2 MG Q4P PRN 01/15 0200 AC IV Niacin 500 MG DAILY 01/18 1000 CAN PO Niacin 500 MG DAILY 01/18 1000 AC PO Nicotinic Acid 500 MG WITH MEALS 01/15 0800 DC PO Non-Formulary 0 SEE ADMIN CRITERIA 01/18 0815 CAN Medication ANY Omeprazole 40 MG DAILY AC 01/17 1123 AC 01/18 PO 0616 Patient Medication 1 ED ONE ONE 01/18 1345 AC Teaching ED 01/18 1346 Potassium Chloride 40 MEQ DAILY 01/18 1000 AC 01/18 PO 1110 Potassium Chloride 20 MEQ DAILY 01/17 1000 DC 01/17 PO 1058 Potassium Chloride 20 MEQ DAILY 03/06 1000 DC 01/17 PO 1053 Prochlorperazine 10 MG Q6 PRN 01/15 0200 AC 01/16 PO 0736 Tiotropium [place] 1 PUF DAILY 01/15 1000 AC 01/18 INH 1109 Vitamin E 100 IU DAILY 01/15 1000 AC 01/18 PO 1110 Last 24 Hrs of Lab/Bill Results Last 24 Hrs of Labs/Mics: Laboratory Tests 01/18/17 0625: Anion Gap 8, Estimated GFR 52 L, BUN/Creatinine Ratio 10.0, CBC w Diff NO MAN DIFF REQ, RBC 3.34 L, MCV 85.1, MCH 28.4, RDW 18.7 H, MPV 8.3, Gran % 66.7, Lymphocytes % 17.7 L, Monocytes % 14.6 H, Eosinophils % 0.6, Basophils % 0.4, Absolute Granulocytes 8.6 H, Absolute Lymphocytes 2.3, Absolute Monocytes 1.9 H, Absolute Eosinophils 0.1, Absolute Basophils 0.1, PUBS MCHC 33.4 Microbiology 01/18 1338 STOOL: Clostridium difficile Toxin A & B - ORD Assessment/Plan Assessment: 86 yo F from [facility], with h/o Afib on xarelto, [place] large B-cell lymphoma on chemo (last was 2 weeks ago) with significant mediastinal lymphadenopathy, bone mets, neutropenia, CKD stage 3A,mild asthma, 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 Plan: #1 ? Diverticulitis -No intra-abdominal abscess seen in the CT scan with oral contast. No diverticulitis. Multiple thick-walled loops of small and large bowel in the region suggesting inflammatory or infectious etiology. So, no drainage. -White count little up today. -Transition to by mouth Cipro and Flagyl today day 5 of antibiotics -Repeat CT of the abdomen and pelvis in the a.m. if her white blood cell count remains elevated -We will check C. difficile as patient had 5 bowel movements overnight -Pain control with IV morphine and IV Tylenol -Continue GI prophylaxis -Cultures negative so far. -Patient tolerating diet, advance to regular diet -Xarelto is on hold due to blood positive stools #2 A. fib with rapid ventricular response -Patient being monitored on telemetry. No events. -Off the Cardizem drip , on by mouth Cardizem twice a day -ACS ruled out with negative troponins and EKG -Continue metoprolol 50 mg twice a day -Cardiologyfollowing #3 Anemia of chronic disease. -s/p 1 PRBC transfusion, H&H improved -Iron studies suggest anemia of chronic disease -Guaic positive -Holding Xarelto #4 History of HFwPEF/ Dizziness/ Low BP -Chest x-ray showed evidence of congestion. -Lasix was started at 40 mg daily -Potassium being repleted #5 Non-Hodgkin large B-cell lymphoma -Treated with 6 cycles of Rituxan, Cytoxan, PLAYGROUND MONITOR 16, vincristine and prednisone. Last chemotherapy 2 weeks ago with prednisone for 4 days post chemotherapy. - Dr. Florentino aware. DVT prophylaxis Alps(Xarelto on hold ) Regular diet Severe pain pathway Problem List: 1. ATRIAL FIBRILATION 2. Weakness 3. Non Hodgkin's lymphoma 4. CHF (congestive heart failure) Pain Ratin Pain Location: Abdomen Pain Goal: Pain 4 or less Pain Plan: Tylenol and IV morphine Tomorrow's Labs & Rationales: CBC...ANEMIA BP potassium is low RUPESH HERNANDEZ MD 01/18/17 1431: Attending MD Review Statement Attending Statement Attending MD Statement: examined this patient, discuss w/resident/PA/CAMPAIGN MARKETING MANAGER, agreed w/resident/PA/CAMPAIGN MARKETING MANAGER, reviewed EMR data (avail), discussed with nursing, discussed with case mgmt, reviewed images Attending Assessment/Plan: Patient feels very weak and unsteady. She also had some diarrhea yesterday. Overall she feels like she is not getting that much better even though she is eating and had abdominal discomfort appears to be have questionably resolved. She was transfused a unit of blood yesterday. She is chronically anemic and she is guaiac positive. She had an endoscopy in February of last year and I'm worried given this anemia the risks of restarting Xarelto may outweigh the benefits and will need to speak to cardiology about the same. We will continue the Cipro, Flagyl, by mouth beta blockers and by mouth Cardizem and watch her heart rate closely. Need to watch the white cell count closely and if it's not improving follow IDs recommendations of rescanning her. We'll check stool for C. difficile in PT and out of bed.
[2017-01-18 15:51] VITALS: BP 96/54
--- NOTE | 2017-01-18 17:34 | PN- Cardiology ---
Subjective Subjective: * No current chest discomfort or shortness of breath. * atrial fibrillation with controlled heart rate on current medications. * H/H improved to 9.5/28.5 Objective Vital Signs and I&Os Vital Signs Date Time Temp Pulse Resp B/P Pulse O2 O2 Flow FiO2 Ox Delivery Rate 01/18 1551 96/54 01/18 1541 97.4 70 20 98 Room Air 01/18 1110 120 108/62 01/18 1109 120 108/62 01/18 1100 120 20 108/62 01/18 0830 97.8 112 20 90/50 97 Room Air 01/18 0800 Room Air 01/18 0045 97.6 94 20 90/60 98 Room Air 01/17 2146 113 92/60 01/17 2146 113 92/60 Intake & Output 01/18 1600 01/18 0801/18 0000 01/17 1600 01/17 0000 Intake Total 738.75 140 500 550 860 Output Total 300 600 500 800 Balance 738.75 -160 -100 50 60 Intake, IV 18.75 20 20 150 140 Intake, Oral 720 120 480 400 720 Number 2 2 2 2 1 3 Bowel Movements Output, Urine 300 600 500 800 Physical Exam: General: WD/ WN female in NAD; alert and oriented x 3 Neck: no JVD, no carotid bruit Heart: irregularly irregular, no murmur Lungs: scant crackles at the right base Extremties: 1+ leg edema Assessment/Plan Assessment/Plan * Shayna is doing better in regard to her breathing. Continue Lasix at 40mg PO daily. Ensure that she is on a low sodium diet. Continue her current dose of Metoprolol. Since the patient now has a borderline BP I would decrease her Cardizem SR to 30mg BID and monitor for adequate rate control. Continue KCL 40 meq po daily. * I believe that some of her fatigue and tachycaria is due to her anemia which, in turn, is likely due to her chemotherapy. At her baseline she has pernicious anemia. Guaiac all stools. Continue telemetry? Yes
[2017-01-18 23:59] VITALS: BP 90/50
--- NOTE | 2017-01-19 07:46 | PN- Housestaff ---
JESSICA,[facility] 01/19/17 0733: Subjective Follow-up For: Diverticulitis? A. fib with rapid ventricular response NH large B-cell lymphoma Pernicious anemia Complaints: patient continues to complain of abdominal discomfort on the right and the left lower quadrant and difficulty swallowing pills. Subjective: Patient complains of abdominal discomfort on the lower right and left quadrant. She feels shakiness all over her body. Afebrile overnight. White count is same as pending. Plan is to do a CAT scan of the abdomen and pelvis if she continues to have a white count. Review of Systems Constitutional: Reports: malaise, weakness. EENTM: Reports: no symptoms. Cardiovascular: Reports: no symptoms. Respiratory: Reports: no symptoms. Gastrointestinal: Reports: abdominal pain, bloating. Genitourinary: Reports: no symptoms. Musculoskeletal: Reports: no symptoms. Skin: Reports: no symptoms. Neurological/Psychological: Reports: no symptoms. Objective Last 24 Hrs of Vital Signs/I&O Vital Signs Date Time Temp Pulse Resp B/P Pulse O2 O2 Flow FiO2 Ox Delivery Rate 01/19 0712 88 124/70 01/19 0038 91 90/50 01/18 2359 97.4 86 20 90/50 96 Room Air 01/18 2218 86 90/50 01/18 2217 86 90/50 01/18 1551 96/54 01/18 1541 97.4 70 20 98 Room Air 01/18 1110 120 108/62 01/18 1109 120 108/62 01/18 1100 120 20 108/62 01/18 0830 97.8 112 20 90/50 97 Room Air 01/18 0800 Room Air Intake & Output 01/19 0800 01/19 0000 01/18 1600 Intake Total 420 738.75 Output Total 250 Balance 170 738.75 Intake, IV 20 18.75 Intake, Oral 400 720 Number 0 2 Bowel Movements Output, Urine 250 Physical Exam General Appearance: Alert, Oriented X3, Cooperative, Mild Distress Skin: No Rashes, No Breakdown, No Significant Lesion, Port-A-Cath in the left upper chest HEENT: Atraumatic, PERRLA, EOMI Neck: Supple, No JVD, No thryomegaly Lymphatic: Cervical nl Cardiovascular: Normal S1, Normal S2, irregularly irregular heart rate Lungs: bibasilar crackles Abdomen: Normal Bowel Sounds, Soft, lower left quadrant and lower right quadrant tenderness. Palpable abdominal lymphadenopathy Neurological: Normal Speech, Normal Tone Extremities: No Clubbing, No Cyanosis, No Edema, Normal Pulses Current Medications: Current Medications Sig/Timi Start time Last Medication Dose Route Stop Time Status Admin Acetaminophen 650 MG Q6P PRN 01/15 0200 AC PO Acetaminophen 1,000 MG Q6 PRN 01/15 0200 AC IV Ceftriaxone Sodium 1,000 MG DAILY 01/15 1000 DC 01/17 IV 1052 Ciprofloxacin 500 MG BID 01/18 1000 AC 01/18 PO 01/22 0959 2219 Diltiazem HCl 30 MG BID 01/19 1000 UNVr PO Diltiazem HCl 60 MG BID 01/18 2200 DC PO Diltiazem HCl 30 MG BID 01/18 2200 CAN PO Diltiazem HCl 15 MG Q6 01/18 2200 DC 01/19 PO 0712 Diltiazem HCl 60 MG BID 01/17 2200 DC 01/18 PO 1109 Diltiazem HCl 125 MG Q24H 01/15 0530 DC 01/18 Sodium Chloride 100 ML IV 01/18 1030 0616 Furosemide 40 MG DAILY 01/18 1000 AC 01/18 PO 1110 Guaifenesin/ 10 ML Q4H PRN 01/15 0200 AC 01/17 Dextromethorphan PO 2147 Heparin Sodium 500 UNIT ONCE ONE 01/19 0615 DC (Porcine) IV 01/19 0616 Heparin Sodium 500 UNIT ONCE ONE 01/19 0600 DC 01/19 (Porcine) IV 01/19 0601 0633 Heparin Sodium 5 UNIT ONCE ONE 01/19 0545 CAN (Porcine) IV 01/19 0546 Hydromorphone HCl 0.6 MG ONCE ONE 01/19 0045 DC 01/19 IV 01/19 0046 0057 Hydromorphone HCl 0.6 MG ONCE ONE 01/18 1615 DC 01/18 IV 01/18 1616 1614 Hydromorphone HCl 2 MG Q8 PRN 01/18 1600 DC PO Levothyroxine Sodium 0.125 MG DAILY AC 01/15 0700 AC 01/18 PO 0616 Magnesium Oxide 400 MG DAILY 01/15 1000 AC 01/18 PO 1110 Melatonin 3 MG AT BEDTIME 01/15 2200 AC 01/18 PO 2220 Metoprolol Tartrate 50 MG BID 01/15 0500 AC 01/18 PO 1110 Metronidazole 500 MG IQ8 01/18 0816 AC 01/18 PO 1109 Metronidazole 500 MG IQ8 01/15 0800 DC 01/17 N/A 1 UNIT IV 2324 Morphine Sulfate 2 MG Q4P PRN 01/15 0200 AC IV Niacin 500 MG DAILY 01/18 1000 CAN PO Niacin 500 MG DAILY 01/18 1000 AC PO Non-Formulary 0 SEE ADMIN CRITERIA 01/18 0815 CAN Medication ANY Omeprazole 40 MG DAILY AC 01/17 1123 AC 01/19 PO 0640 Patient Medication 1 ED ONE ONE 01/18 1345 DC Teaching ED 01/18 1346 Potassium Chloride 40 MEQ DAILY 01/18 1000 AC 01/18 PO 1110 Prochlorperazine 10 MG Q6 PRN 01/15 0200 AC 01/16 PO 0736 Tiotropium [place] 1 PUF DAILY 01/15 1000 AC 01/18 INH 1109 Vitamin E 100 IU DAILY 01/15 1000 AC 01/18 PO 1110 Last 24 Hrs of Lab/Bill Results Last 24 Hrs of Labs/Mics: Laboratory Tests 01/19/17 0630: Sodium Pending, Potassium Pending, Chloride Pending, Carbon Dioxide Pending, Anion Gap Pending, BUN Pending, Creatinine Pending, BUN/Creatinine Ratio Pending , CBC w Diff Pending, WBC Pending, RBC Pending, Hgb Pending, Hct Pending, MCV Pending, MCH Pending, RDW Pending, Plt Count Pending, MPV Pending, PUBS MCHC Pending Microbiology 01/18 1338 STOOL: Clostridium difficile Toxin A & B - COLB Assessment/Plan Assessment: 86 yo F from [facility], with h/o Afib on [place], [place] large B-cell lymphoma on chemo (last was 2 weeks ago) with significant mediastinal lymphadenopathy, bone mets, neutropenia, CKD stage 3A,mild asthma, 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 Plan: #1 ? Diverticulitis :No intra-abdominal abscess seen in the CT scan with oral contast. No diverticulitis. Multiple thick-walled loops of small and large bowel in the region suggesting inflammatory or infectious etiology. So, no drainage. -White count down to 10 this morning -Continue Cipro and Flagyl today day 6 of antibiotics -No repeat Repeat CT of the abdomen and pelvis needed as patient clinically improved and white count came down - C. difficile pending. 2 bowel movements overnight. -Pain control with IV morphine and IV Tylenol -Continue GI prophylaxis -Cultures negative so far. -Patient tolerating diet, advance to regular diet #2 A. fib with rapid ventricular response/borderline blood pressure -Cardizem dose 30 mg twice a day as blood pressure was borderline last evening -Off the Cardizem drip -ACS ruled out with negative troponins and EKG -Continue metoprolol 50 mg twice a day -After discussing with cardiology Xarelto was restarted as benefits seem to outweigh the risks of bleeding at this point. Patient's anemia is chronic. If H&H continues to drop on Xarelto, we would consider stopping it for the future. #3 History of pernicious anemia -s/p 1 PRBC transfusion, H&H improved -Iron studies suggest anemia of chronic disease -Guaic positive -Restarting Xarelto today #4 History of HFwPE -Chest x-ray showed evidence of congestion. -Continue Lasix 40 mg daily -Potassium being repleted #5 Non-Hodgkin large B-cell lymphoma -Treated with 6 cycles of Rituxan, Cytoxan, [employer] 16, vincristine and prednisone. Last chemotherapy 2 weeks ago with prednisone for 4 days post chemotherapy. -IV Dilaudid when necessary for severe pain - Dr. Florentino aware. DVT prophylaxis Alps(Xarelto on hold ) Regular diet Severe pain pathway Problem List: 1. ATRIAL FIBRILATION 2. Weakness 3. Non Hodgkin's lymphoma 4. CHF (congestive heart failure) Pain Ratin Pain Location: Lower abdomen Pain Goal: Pain 4 or less Pain Plan: IV Dilaudid when necessary, Tylenol Tomorrow's Labs & Rationales: Cbc infection bep potassium low MARY MAYBERRY,RUPESH 01/19/17 1325: Attending MD Review Statement Attending Statement Attending MD Statement: examined this patient, discuss w/resident/PA/COMMUNICATIONS PLANNER, agreed w/resident/PA/COMMUNICATIONS PLANNER, reviewed EMR data (avail), discussed with nursing, discussed with case mgmt, reviewed images Attending Assessment/Plan: Patient has multiple complaints from the metallic taste in her throat to her abdominal discomfort to green stool. Her Flagyl dose has been suggested to be decreased by ID and will do the same. Her white count has come down so we don't need to reimage her. Yesterday she was hypotensive and her A. fib was still not adequately controlled. Her pressure is better today and we have her on by mouth Lasix at 40 a day with a low dose of Cardizem. We spoke to Dr. Neal at length, she has anemia of chronic disease and her indices do not suggest blood loss. She is guaiac positive but I think that's much more a small ?chronic issue and she did have an endoscopy in February. At this point given her high chads score would going to restart her Xarelto and watch her H&H closely to make sure the hgb doesn't fall.
[2017-01-19 08:11] LABS: ABSOLUTE BASOPHIL COUNT 0 /CUMM (0.0-0.2); ABSOLUTE EOSINOPHIL COUNT 0.1 /CUMM (0.0-0.7); ABSOLUTE GRANULOCYTE CT 6.1 /CUMM (1.4-6.5); ABSOLUTE LYMPH COUNT 2.1 /CUMM (1.2-3.4); ABSOLUTE MONOCYTE COUNT 1.7 /CUMM (0.10-0.60); BASOPHIL % 0.4 % (0.0-2.0); EOSINOPHIL % 0.8 % (0-5); HEMATOCRIT 27.6 % (37-47); MEAN CORPUSCULAR HGB CONC 32.8 G/DL (33.0-37.0); MEAN CORPUSCULAR VOLUME 85.5 FL (81.0-99.0); MEAN PLATELET VOLUME 8.3 FL (7.4-10.4); PLATELET COUNT 307 /CUMM (130-400); RBC DISTRIBUTION WIDTH 18.9 % (11.5-14.5); RED BLOOD CELL CT 3.23 /CUMM (4.20-5.40)
[2017-01-19 08:32] VITALS: BP 100/60
--- NOTE | 2017-01-19 12:52 | PN- Infect Dx ---
Subjective Subjective: Afebrile. She complains of recurrent pain in the right side of her abdomen and metallic taste in her mouth, preventing her from eating, along with several other complaints including green stool. Objective Last 24 Hrs of Vital Signs/I&O Vital Signs Date Time Temp Pulse Resp B/P Pulse O2 O2 Flow FiO2 Ox Delivery Rate 01/20 920 97.6 97 20 108/60 01/19 0832 97.6 79 20 100/60 96 Room Air 01/19 0800 95 Room Air Room Air 01/19 0712 88 124/70 01/19 0038 91 90/50 01/18 2359 97.4 86 20 90/50 96 Room Air 01/18 2218 86 90/50 01/18 2217 86 90/50 01/18 1551 96/54 01/18 1541 97.4 70 20 98 Room Air Intake & Output 01/19 1600 01/19 0800 01/19 0000 Intake Total 280 420 Output Total 450 250 Balance -170 170 Intake, IV 40 20 Intake, Oral 240 400 Number 0 Bowel Movements Output, Urine 450 250 Physical Exam Other Physical Findings: She appears comfortable in no acute distress Lungs are clear Heart irregular rhythm with no murmur Abdomen soft, tender on minimal palpation in the periumbilical area, with guarding but with no rebound, positive bowel sounds Results Last 24 Hours of Lab Results: Laboratory Tests 01/19 630 Chemistry Sodium (137 - 145 mmol/L) 135 L Potassium (3.5 - 5.1 mmol/L) 4.3 Chloride (98 - 107 mmol/L) 102 Carbon Dioxide (22 - 30 mmol/L) 25 Anion Gap (5 - 16) 9 BUN (7 - 17 mg/dL) 12 Creatinine (0.5 - 1.0 mg/dL) 1.1 H Estimated GFR (>60 ml/min) 47 L BUN/Creatinine Ratio (7 - 25 %) 10.9 Hematology CBC w Diff NO MAN DIFF REQ WBC (4.8 - 10.8 /CUMM) 10.0 RBC (4.20 - 5.40 /CUMM) 3.23 L Hgb (12.0 - 16.0 G/DL) 9.0 L Hct (37 - 47 %) 27.6 L MCV (81.0 - 99.0 FL) 85.5 MCH (27.0 - 31.0 PG) 28.0 RDW (11.5 - 14.5 %) 18.9 H Plt Count (130 - 400 /CUMM) 307 MPV (7.4 - 10.4 FL) 8.3 Gran % (42.2 - 75.2 %) 61.0 Lymphocytes % (20.5 - 51.1 %) 20.6 Monocytes % (1.7 - 9.3 %) 17.2 H Eosinophils % (0 - 5 %) 0.8 Basophils % (0.0 - 2.0 %) 0.4 Absolute Granulocytes (1.4 - 6.5 /CUMM) 6.1 Absolute Lymphocytes (1.2 - 3.4 /CUMM) 2.1 Absolute Monocytes (0.10 - 0.60 /CUMM) 1.7 H Absolute Eosinophils (0.0 - 0.7 /CUMM) 0.1 Absolute Basophils (0.0 - 0.2 /CUMM) 0 PUBS MCHC (33.0 - 37.0 G/DL) 32.8 L Last 24 Hours of Bill Results: Stool C. difficile January 19 pending Assessment/Plan Impression: She remains afebrile with white blood cell count again normal now on Ciprofloxacin and Flagyl Day 5 of treatment for presumed diverticulitis. She continues to complain of abdominal discomfort which is of unclear significance as she appears overall improved. The metallic taste in her mouth may be secondary to Flagyl, but there are limited options for treatment of diverticulitis in this penicillin allergic patient. She should receive a total of 10-14 days of antibiotics for diverticulitis. Suggestion: 1. Follow-up stool for C. difficile 2. Decrease Flagyl to 250 mg po every 8 hours 3. Continue Ciprofloxacin
[2017-01-19 16:06] VITALS: BP 100/60
--- NOTE | 2017-01-19 17:17 | PN- Cardiology ---
Subjective Subjective: * Patient is feeling better. No chest discomfort, shortness of breath, lightheadedness or palpitations. She complains of swelling in her feet. * atrial fibrillation with controlled heart rate * guaiac positive with H/H 08/08.6 Objective Vital Signs and I&Os Vital Signs Date Time Temp Pulse Resp B/P Pulse O2 O2 Flow FiO2 Ox Delivery Rate 01/19 1606 97.1 88 18 100/60 95 Room Air 01/19 0920 97.6 97 20 108/60 01/19 0832 97.6 79 20 100/60 96 Room Air 01/19 0800 95 Room Air Room Air 01/19 0712 88 124/70 01/19 0038 91 90/50 01/18 2359 97.4 86 20 90/50 96 Room Air 01/18 2218 86 90/50 01/18 2217 86 90/50 Intake & Output 01/19 1600 01/19 0800 01/19 0000 01/18 1600 01/18 0800 01/18 0000 Intake Total 360 280 420 738.75 140 500 Output Total 450 250 300 600 Balance 360 -170 170 738.75 -160 -100 Intake, IV 40 20 18.75 20 20 Intake, Oral 360 240 400 720 120 480 Number 2 0 2 2 2 Bowel Movements Output, Urine 450 250 300 600 Physical Exam: General: WD/ WN female in NAD; alert and oriented x 3 Neck: no JVD, no carotid bruit Heart: irregularly irregular, no murmur Lungs: scant crackles at the right base Extremties: 1+ leg romi Assessment/Plan Assessment/Plan * Shayna is doing better in regard to her breathing. Continue Lasix at 40mg PO daily. This will hopefully help her pedal edema. Ensure that she is on a low sodium diet. Continue her current dose of Metoprolol. Since the patient now has a borderline BP I would decrease her Cardizem SR to 30mg BID and monitor for adequate rate control. Continue KCL 40 meq po daily. * I believe that some of her fatigue and tachycaria is due to her anemia which, in turn, is likely due to her chemotherapy. At her baseline she has pernicious anemia. Check reticulocyte count. Her anemia is likely multifactorial. In the absence of any significant bleeding this patient should continue on chronic anticoagulation for stroke prophylaxis. Continue telemetry? Yes
[2017-01-20 00:09] VITALS: BP 82/42
[2017-01-20 05:38] LABS: ABSOLUTE BASOPHIL COUNT 0 /CUMM (0.0-0.2); ABSOLUTE EOSINOPHIL COUNT 0.1 /CUMM (0.0-0.7); ABSOLUTE GRANULOCYTE CT 5.9 /CUMM (1.4-6.5); ABSOLUTE LYMPH COUNT 1.5 /CUMM (1.2-3.4); ABSOLUTE MONOCYTE COUNT 1.6 /CUMM (0.10-0.60); BASOPHIL % 0.4 % (0.0-2.0); GRANULOCYTE % 64.5 % (42.2-75.2); HEMATOCRIT 26.5 % (37-47); MEAN CORPUSCULAR HGB 27.6 PG (27.0-31.0); MEAN CORPUSCULAR HGB CONC 32.2 G/DL (33.0-37.0); MEAN CORPUSCULAR VOLUME 85.7 FL (81.0-99.0); MEAN PLATELET VOLUME 7.9 FL (7.4-10.4); PLATELET COUNT 280 /CUMM (130-400); RBC DISTRIBUTION WIDTH 18.8 % (11.5-14.5); WHITE BLOOD CELL COUNT 9.2 /CUMM (4.8-10.8)
[2017-01-20 07:48] VITALS: BP 102/60
--- NOTE | 2017-01-20 07:51 | PN- Housestaff ---
See Addendum Subjective Follow-up For: Diverticulitis? A. fib with rapid ventricular response NH large B-cell lymphoma Pernicious anemia Tele-Events Since Last Visit: Atrial fibrillation with HR 84-94 bpm, no overnight events. Subjective: Patient seen and examined at bedside this AM. SHe is sitting up eating her lunch and appears to be in no acute distress. Patient reports she is tolerating her diet well but does experience some nausea without vomiting. She does not enjoy the mashed potatoes. She also has intermittent generalized abdominal pain. Review of Systems Constitutional: Reports: malaise. EENTM: Denies: visual changes. Cardiovascular: Denies: chest pain, palpitations. Respiratory: Denies: cough, short of breath. Gastrointestinal: Reports: abdominal pain, bloating. Denies: diarrhea. Genitourinary: Denies: dysuria. Musculoskeletal: Reports: joint pain (Occasional right hip pain). Skin: Denies: rash. Neurological/Psychological: Denies: confusion, headache. Objective Last 24 Hrs of Vital Signs/I&O Vital Signs Date Time Temp Pulse Resp B/P Pulse O2 O2 Flow FiO2 Ox Delivery Rate 01/20 1031 74 104/64 01/20 1030 74 102/64 01/20 0800 97 Room Air 01/20 0748 98.3 68 16 102/60 97 Room Air 01/20 0009 98.3 94 16 82/42 94 Room Air 01/20 0000 Room Air 01/19 2102 92 96/50 01/19 1606 97.1 88 18 100/60 95 Room Air 01/19 1600 93 Room Air Intake & Output 01/20 1600 01/20 0800 01/20 0000 Intake Total 250 350 Output Total 300 450 Balance -50 -100 Intake, IV 0 Intake, Oral 250 350 Number 1 3 Bowel Movements Output, Urine 300 450 Physical Exam General Appearance: Alert, Oriented X3, Cooperative, No Acute Distress Skin: No Rashes, Left upper chest poracath HEENT: Atraumatic, Mucous Membr. moist/pink Neck: Supple, No JVD Lymphatic: Cervical nl Cardiovascular: Normal S1, Normal S2, Irregularly irregular Lungs: Normal air movement with bibasilar crackles. Abdomen: Normal Bowel Sounds, Soft, Left and right lower quadrant tenderenss with +LAD Neurological: Normal Speech, Normal Tone Extremities: No Clubbing, No Cyanosis, No Edema, No Tenderness/Swelling Vascular: Pulses Symmetrical Current Medications: Current Medications Sig/Timi Start time Last Medication Dose Route Stop Time Status Admin Acetaminophen 650 MG Q6P PRN 01/15 0200 AC PO Acetaminophen 1,000 MG Q6 PRN 01/15 0200 AC IV Ciprofloxacin 500 MG BID 01/18 1000 AC 01/20 PO 01/22 0959 1031 Diltiazem HCl 30 MG BID 01/19 2200 AC 01/20 PO 1031 Furosemide 40 MG DAILY 01/18 1000 AC 01/20 PO 1030 Guaifenesin/ 10 ML Q4H PRN 01/15 0200 AC 01/17 Dextromethorphan PO 2147 Levothyroxine Sodium 0.125 MG DAILY AC 01/15 0700 AC 01/20 PO 0630 Magnesium Oxide 400 MG DAILY 01/15 1000 AC 01/19 PO 1333 Melatonin 3 MG AT BEDTIME 01/15 2200 AC 01/18 PO 2220 Metoprolol Tartrate 50 MG BID 01/15 0500 AC 01/20 PO 1030 Metronidazole 250 MG Q8H 01/19 1600 AC 01/20 PO 1026 Metronidazole 500 MG IQ8 01/18 0816 DC 01/19 PO 0918 Morphine Sulfate 2 MG Q4P PRN 01/15 0200 AC IV Niacin 500 MG DAILY 01/18 1000 AC PO Omeprazole 40 MG DAILY AC 01/17 1123 AC 01/20 PO 0630 Patient Medication 1 UNIT 1600 01/19 1600 DC 01/19 Teaching ED 01/19 1601 1756 Potassium Chloride 40 MEQ DAILY 01/18 1000 AC 01/19 PO 0918 Prochlorperazine 10 MG Q6 PRN 01/15 0200 AC 01/20 PO 0420 Rivaroxaban 15 MG DAILY 01/19 1000 AC 01/19 PO 1333 Tiotropium [place] 1 PUF DAILY 01/15 1000 AC 01/20 INH 1034 Vitamin E 100 IU DAILY 01/15 1000 AC 01/19 PO 1333 Last 24 Hrs of Lab/Bill Results Last 24 Hrs of Labs/Mics: Laboratory Tests 01/20/17 0500: CBC w Diff NO MAN DIFF REQ, RBC 3.10 L, MCV 85.7, MCH 27.6, RDW 18.8 H, MPV 7.9, Gran % 64.5, Lymphocytes % 16.5 L, Monocytes % 17.6 H, Eosinophils % 1.0, Basophils % 0.4, Absolute Granulocytes 5.9, Absolute Lymphocytes 1.5, Absolute Monocytes 1.6 H, Absolute Eosinophils 0.1, Absolute Basophils 0, PUBS MCHC 32.2 L Assessment/Plan Assessment: Ms. 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 Plan: #1 ? Diverticulitis : No intra-abdominal abscess seen in the CT scan with oral contast. No diverticulitis. Multiple thick-walled loops of small and large bowel in the region suggesting inflammatory or infectious etiology. No drainage done. -White count down to 9.2 this morning -Continue Cipro and Flagyl today day 7 of antibiotics -No repeat Repeat CT of the abdomen and pelvis needed as patient clinically improved and white count came down - C. difficile pending FOLLOW UP RESULTS. -Pain control with IV morphine and IV Tylenol -Continue GI prophylaxis -Cultures ngtd -Patient tolerating diet, advance to regular diet #2 A. fib with rapid ventricular response/borderline blood pressure -Cardizem dose 30 mg SR twice a day to continue, BP tolerating this reduced dose well -ACS ruled out with negative troponins and EKG -Continue metoprolol 50 mg twice a day -After discussing with cardiology Xarelto was restarted as benefits seem to outweigh the risks of bleeding at this point. Patient's anemia is chronic. If H&H continues to drop on Xarelto, we would consider stopping it for the future. #3 History of pernicious anemia -s/p 1 PRBC transfusion, H&H improved -Iron studies suggest anemia of chronic disease -Guaic positive -Restarted Xarelto yesterday #4 History of HFpEF -Chest x-ray showed evidence of congestion. -Continue Lasix 40 mg daily -Potassium being repleted with KCL 40 meq PO daily #5 Non-Hodgkin large B-cell lymphoma -Treated with 6 cycles of Rituxan, Cytoxan, [employer] 16, vincristine and prednisone. Last chemotherapy 2 weeks ago with prednisone for 4 days post chemotherapy. -IV Dilaudid when necessary for severe pain - Dr. Florentino aware. DVT prophylaxis Alps(Xarelto on hold ) Regular diet Severe pain pathway Problem List: 1. ATRIAL FIBRILATION 2. Diverticulitis 3. Rapid atrial fibrillation Pain Ratin Pain Location: Abdomen Pain Goal: Pain 4 or less Pain Plan: Per pain pathway Tomorrow's Labs & Rationales: CBC (anemia), BEP (increasing creatinine)
[2017-01-20 15:21] VITALS: BP 102/60
--- NOTE | 2017-01-20 21:01 | RADIOLOGY REPORT ---
EXAMINATION: XR HIP, RIGHT CLINICAL INFORMATION: Right hip pain. COMPARISON: Right hip radiography 12/17/2016. TECHNIQUE: Two views of the right hip. FINDINGS: No fracture or dislocation. The femoral head is well situated within the acetabulum. No significant right hip joint cartilage space narrowing. Degenerative changes along the inferior aspect of the right sacroiliac joint. IMPRESSION: No acute osseous abnormalities.
[2017-01-20 21:16] VITALS: BP 92/40
[2017-01-20 23:35] VITALS: BP 100/82
[2017-01-21 08:14] LABS: ABSOLUTE BASOPHIL COUNT 0.1 /CUMM (0.0-0.2); ABSOLUTE EOSINOPHIL COUNT 0.1 /CUMM (0.0-0.7); ABSOLUTE GRANULOCYTE CT 6.4 /CUMM (1.4-6.5); ABSOLUTE LYMPH COUNT 1.9 /CUMM (1.2-3.4); ABSOLUTE MONOCYTE COUNT 1.5 /CUMM (0.10-0.60); BASOPHIL % 0.5 % (0.0-2.0); GRANULOCYTE % 64.7 % (42.2-75.2); HEMATOCRIT 28.4 % (37-47); MEAN CORPUSCULAR HGB 28.2 PG (27.0-31.0); MEAN CORPUSCULAR HGB CONC 32.6 G/DL (33.0-37.0); MEAN CORPUSCULAR VOLUME 86.5 FL (81.0-99.0); MEAN PLATELET VOLUME 8.4 FL (7.4-10.4); PLATELET COUNT 284 /CUMM (130-400); RBC DISTRIBUTION WIDTH 18.8 % (11.5-14.5); RED BLOOD CELL CT 3.28 /CUMM (4.20-5.40); WHITE BLOOD CELL COUNT 9.9 /CUMM (4.8-10.8)
[2017-01-21 08:15] VITALS: BP 118/58
--- NOTE | 2017-01-21 08:43 | PN- Housestaff ---
MICHAEL RUIZ 01/21/17 0843: Subjective Follow-up For: Diverticulitis? AnnaMario jerald with rapid ventricular response NH large B-cell lymphoma Pernicious anemia Tele-Events Since Last Visit: Goldy marques, 77-101 Subjective: Seen and examined patient, complains of abdominal pain states that the pain medication is helping her. Denies shortness of breath, chest pain, palpitations. Says that she is tolerating her diet but when the pain comes she feels some nausea. Review of Systems Constitutional: Denies: chills, diaphoresis, fever, malaise, weakness, unexplained weight loss. Cardiovascular: Denies: chest pain, edema, orthopena, palpitations, peripheral edema, syncope. Respiratory: Denies: cough, hemoptysis, orthopnea, short of breath, sputum production, stridor, wheezing. Objective Last 24 Hrs of Vital Signs/I&O Vital Signs Date Time Temp Pulse Resp B/P Pulse O2 O2 Flow FiO2 Ox Delivery Rate 01/21 915 108 140/70 01/21 0912 108 140/70 01/21 0815 97.9 100 16 118/58 94 Room Air 01/21 0800 98 Room Air 01/20 2335 97.4 89 18 100/82 98 Room Air 01/20 2119 82 92/40 01/20 2119 82 92/40 01/20 2116 90 92/40 01/20 1600 97 Room Air 01/20 1521 98.3 68 16 102/60 97 Room Air Intake & Output 01/21 1600 01/21 0800 01/21 0000 Intake Total 360 740 Output Total 350 Balance 10 740 Intake, Oral 360 740 Number 1 Bowel Movements Output, Urine 350 Physical Exam General Appearance: Alert, Oriented X3, Cooperative, No Acute Distress Cardiovascular: Normal S1, Normal S2, irregularly, irregularly Lungs: Clear to Auscultation, Normal Air Movement Abdomen: Normal Bowel Sounds, Soft, tenderness to mild palpation Extremities: No Edema Current Medications: Current Medications Sig/Timi Start time Last Medication Dose Route Stop Time Status Admin Acetaminophen 650 MG Q6P PRN 01/15 0200 DC PO Acetaminophen 1,000 MG Q6 PRN 01/15 0200 DC IV Ciprofloxacin 500 MG BID 01/18 1000 AC 01/21 PO 01/22 0959 0915 Diltiazem HCl 30 MG BID 01/19 2200 AC 01/21 PO 0912 Furosemide 40 MG DAILY 01/18 1000 AC 01/21 PO 0914 Guaifenesin/ 10 ML Q4H PRN 01/15 0200 AC 01/17 Dextromethorphan PO 2147 Heparin Sodium 500 UNIT ONCE ONE 01/21 0500 DC 01/21 (Porcine) IV 01/21 0501 0621 Levothyroxine Sodium 0.125 MG DAILY AC 01/15 0700 AC 01/21 PO 0912 Magnesium Oxide 400 MG DAILY 01/15 1000 AC 01/21 PO 0918 Melatonin 3 MG AT BEDTIME 01/15 2200 AC 01/18 PO 2220 Metoprolol Tartrate 50 MG BID 01/15 0500 AC 01/21 PO 0915 Metronidazole 250 MG Q8H 01/19 1600 AC 01/21 PO 0913 Morphine Sulfate 2 MG Q4P PRN 01/15 0200 AC 01/21 IV 0928 Niacin 500 MG DAILY 01/18 1000 DC PO Omeprazole 40 MG DAILY AC 01/21 0700 AC 01/21 PO 0640 Omeprazole 40 MG DAILY AC 01/17 1123 DC 01/20 PO 0630 Potassium Chloride 40 MEQ DAILY 01/18 1000 AC 01/21 PO 0917 Prochlorperazine 10 MG Q6 PRN 01/15 0200 AC 01/20 PO 0420 Rivaroxaban 15 MG AT BEDTIME 01/20 2200 AC 01/20 PO 1857 Rivaroxaban 15 MG DAILY@1700 01/20 1700 DC PO Rivaroxaban 15 MG DAILY 01/19 1000 DC 01/19 PO 1333 Tiotropium [place] 1 PUF DAILY 01/15 1000 AC 01/21 INH 0918 Vitamin E 100 IU DAILY 01/15 1000 DC 01/20 PO 1231 Last 24 Hrs of Lab/Bill Results Last 24 Hrs of Labs/Mics: Laboratory Tests 01/21/17 0630: Anion Gap 8, Estimated GFR 47 L, BUN/Creatinine Ratio 10.0, CBC w Diff NO MAN DIFF REQ, RBC 3.28 L, MCV 86.5, MCH 28.2, RDW 18.8 H, MPV 8.4, Gran % 64.7, Lymphocytes % 18.8 L, Monocytes % 15.0 H, Eosinophils % 1.0, Basophils % 0.5, Absolute Granulocytes 6.4, Absolute Lymphocytes 1.9, Absolute Monocytes 1.5 H, Absolute Eosinophils 0.1, Absolute Basophils 0.1, PUBS MCHC 32.6 L Assessment/Plan Assessment: Ms. 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 Plan: #1 ? Diverticulitis : No intra-abdominal abscess seen in the CT scan with oral contast. No diverticulitis. Multiple thick-walled loops of small and large bowel in the region suggesting inflammatory or infectious etiology. No drainage done. -White count down to normal -Continue Cipro and Flagyl today day 8 of antibiotics -No repeat Repeat CT of the abdomen and pelvis needed as patient clinically improved and white count came down - C. difficile negative -Pain control with IV morphine and IV Tylenol -Continue GI prophylaxis -Cultures negative -Patient tolerating diet, advance as tolerated #2 A. fib with rapid ventricular response/borderline blood pressure -Cardizem dose 30 mg SR twice a day to continue, BP tolerating this reduced dose well -ACS ruled out with negative troponins and EKG -Continue metoprolol 50 mg twice a day -After discussing with cardiology Xarelto was restarted as benefits seem to outweigh the risks of bleeding at this point. Patient's anemia is chronic. If H&H continues to drop on Xarelto, we would consider stopping it for the future. #3 History of pernicious anemia -s/p 1 PRBC transfusion, H&H 9.2/28.4 -Iron studies suggest anemia of chronic disease -Guaic positive -Restarted Xarelto yesterday #4 History of HFpEF -Chest x-ray showed evidence of congestion. -Continue Lasix 40 mg daily, creatinine 1.1 -Potassium being repleted with KCL 40 meq PO daily #5 Non-Hodgkin large B-cell lymphoma -Treated with 6 cycles of Rituxan, Cytoxan, LEARNING SERVICES COORDINATOR 16, vincristine and prednisone. Last chemotherapy 2 weeks ago with prednisone for 4 days post chemotherapy. - Dr. Florentino aware. DVT prophylaxis Alps(Xarelto on hold ) Regular diet Severe pain pathway Problem List: 1. ATRIAL FIBRILATION 2. CAD S/P STENT 3. HYPOTHYROIDISM Pain Ratin Pain Location: abd Pain Goal: Pain 4 or less Pain Plan: current regimen Tomorrow's Labs & Rationales: none required ALFA KOWALSKI MD 01/21/17 1544: Attending MD Review Statement Attending Statement Attending MD Statement: examined this patient, discuss w/resident/PA/RIG WELDER, agreed w/resident/PA/RIG WELDER, reviewed EMR data (avail) Attending Assessment/Plan: Patient complains of right hip pain from a fall sustained a few days prior to admission. The pain radiates from her right hip down to her knee. It causes her discomfort with attempted ambulation. She also reports that she takes too many pills and would like to stop the non-essential ones. Otherwise, vitals and exam normal, labs reviewed. - Continue Cipro and Flagyl - Follow cultures - Right hip x-ray normal - Still having GERD symptoms, would benefit from GI eval - Continue remaining medications
[2017-01-21] MEDS ORDERED: LASIX40 M1 PO (15:39)
[2017-01-21] MEDS ORDERED: CIPRO500 M1 PO (15:39)
[2017-01-21] MEDS ORDERED: FLAGYL250 M1 PO (15:39)
[2017-01-21 15:45] VITALS: BP 100/52
[2017-01-22 00:20] VITALS: BP 86/46
[2017-01-22 07:30] VITALS: BP 90/50
[2017-01-22] MEDS ORDERED: FLAGYL250 M1 PO (09:58)
[2017-01-22] MEDS ORDERED: LASIX40 M1 PO (09:58)
[2017-01-22] MEDS ORDERED: CIPRO500 M1 PO (09:58)
--- NOTE | 2017-01-22 09:59 | Patient Discharge Instructions ---
Discharge Instructions General Discharge Information You were seen/treated for: Acute diverticulitis with questionable intra-abdominal abscess A. fib with rapid ventricular rate Special Instructions: #1 Please check BEP and CBC on 01/25/17 and report results to Dr Neal. #2 Please follow-up with your PCP within 1 week of discharge. #3. Please follow-up with Dr. Florentino within 2 weeks of discharge. #4 please follow-up with Dr. Neal within 2 weeks of discharge. Diet Recommended Diet: Regular Activity Full Activity/No Limits: Yes Acute Coronary Syndrome Inclusion Criteria At DC or during hospital stay patient has or had the following: ACS DIAGNOSIS No Discharge Core Measures Meds if any: Prescribed or Continued at Discharge Meds if any: NOT Prescribed or Continued at Discharge Congestive Heart Failure Inclusion Criteria At DC or during hospital stay patient has or had the following: CHF DIAGNOSIS Yes Discharge Core Measures Meds if any: Prescribed or Continued at Discharge BECCA/ARB for EF <40% No (ef> 60%) Meds if any: NOT Prescribed or Continued at Discharge Cerebrovascular accident Inclusion Criteria At DC or during hospital stay patient has or had the following: CVA/TIA Diagnosis No Discharge Core Measures Meds if any: Prescribed or Continued at Discharge Meds if any: NOT Prescribed or Continued at Discharge Venous thromboembolism Inclusion Criteria VTE Diagnosis No VTE Type NONE VTE Confirmed by (Test) NONE Discharge Core Measures - Per Current guidelines, there needs to be overlap - treatment for the first 5 days of Warfarin therapy. - If discharged on Warfarin prior to 5 days of - overlap therapy, the patient will need to be - assessed for post discharge needs including - *Post discharge parental anticoagulation - *Warfarin and/or parental anticoagulation education - *Follow up date to check INR post discharge At least 5 days overlap therapy as Inpatient No Meds if any: Prescribed or Continued at Discharge Note: Overlap Therapy is Warfarin and Anticoagulant Meds if any: NOT Prescribed or Continued at Discharge
[2017-01-22] MEDS ORDERED: ZOFRAN ODT4 M1 SL ×2 (10:04→10:05)
--- NOTE | 2017-01-22 10:48 | PN- Housestaff ---
[facility] 01[facility] 1044: Subjective Follow-up For: Diverticulitis? Goldy marques with rapid ventricular response NH large B-cell lymphoma Pernicious anemia Complaints: SHORTNESS OF BREATH Tele-Events Since Last Visit: Goldy marques 95-110 Subjective: Patient complains of shortness of breath this morning and benefits to be on oxygen despite saturation being in 90s on room air. Complains of weakness in both legs. Was complaining of right hip pain over the weekend, x-ray summary negative. Review of Systems Constitutional: Reports: malaise, weakness. EENTM: Reports: no symptoms. Cardiovascular: Reports: no symptoms. Respiratory: Reports: short of breath. Gastrointestinal: Reports: abdominal pain. Genitourinary: Reports: no symptoms. Musculoskeletal: Reports: muscle pain, muscle stiffness. Skin: Reports: no symptoms. Objective Last 24 Hrs of Vital Signs/I&O Vital Signs Date Time Temp Pulse Resp B/P Pulse O2 O2 Flow FiO2 Ox Delivery Rate 01/22 1039 Nasal 2.0L Cannula 01/22 1014 Nasal 2.0L Cannula 01/22 0859 107 106/58 01/22 0858 107 106/58 01/22 0730 98.8 91 18 90/50 97 Nasal 2.0L Cannula 01/22 0030 97 86/44 01/22 0020 99.1 101 16 86/46 98 Nasal 3.0L Cannula 01/22 0000 Nasal 2.0L Cannula 01/21 2104 85 102/50 01/21 1600 95 Room Air 01/21 1545 98.6 84 18 100/52 96 Room Air Intake & Output 01/22 1600 01/22 0800 01/22 0000 Intake Total 250 450 Output Total 450 500 Balance -200 -50 Intake, IV 0 Intake, Oral 250 450 Number 0 0 Bowel Movements Output, Urine 450 500 Physical Exam General Appearance: Alert, Oriented X3, Cooperative Skin: No Rashes, No Breakdown, pORT-a-cATH IN THE UPPER LEFT CHEST HEENT: Atraumatic, PERRLA, EOMI Neck: Supple, No JVD Lymphatic: Cervical nl Cardiovascular: Normal S1, Normal S2, IRREGULARLY IRREGULAR HEART RATE Lungs: BIBASILAR CRACKLES Abdomen: Normal Bowel Sounds, Soft, No Tenderness Neurological: Normal Speech, Normal Tone Extremities: No Clubbing, No Cyanosis, No Edema, Normal Pulses Vascular: Normal Pulses Current Medications: Current Medications Sig/Timi Start time Last Medication Dose Route Stop Time Status Admin Ciprofloxacin 500 MG BID 01/18 1000 DC 01/21 PO 01/22 0959 2104 Diltiazem HCl 30 MG BID 01/19 2200 AC 01/22 PO 0859 Furosemide 40 MG DAILY 01/18 1000 AC 01/22 PO 0858 Guaifenesin/ 10 ML Q4H PRN 01/15 0200 AC 01/17 Dextromethorphan PO 2147 Levothyroxine Sodium 0.125 MG DAILY AC 01/15 0700 AC 01/22 PO 0639 Magnesium Oxide 400 MG DAILY 01/15 1000 AC 01/21 PO 0918 Melatonin 3 MG AT BEDTIME 01/15 2200 AC 01/18 PO 2220 Metoprolol Tartrate 50 MG BID 01/15 0500 AC 01/22 PO 0858 Metronidazole 250 MG Q8H 01/19 1600 AC 01/22 PO 0859 Morphine Sulfate 2 MG Q4P PRN 01/15 0200 AC 01/21 IV 1617 Omeprazole 40 MG DAILY AC 01/21 0700 AC 01/22 PO 0639 Potassium Chloride 20 MEQ BID 01/22 1000 AC PO Potassium Chloride 40 MEQ DAILY 01/18 1000 DC 01/21 PO 0917 Prochlorperazine 10 MG Q6 PRN 01/15 0200 AC 01/22 PO 0938 Rivaroxaban 15 MG AT BEDTIME 01/20 2200 AC 01/21 PO 1821 Tiotropium [place] 1 PUF DAILY 01/15 1000 AC 01/22 INH 0859 Last 24 Hrs of Lab/Bill Results Last 24 Hrs of Labs/Mics: Laboratory Tests 01/22/17 0550: Anion Gap 4 L, Estimated GFR 42 L, BUN/Creatinine Ratio 9.2, Magnesium 1.2 L Assessment/Plan Assessment: Ms. 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 Plan: #1 ? Diverticulitis : No intra-abdominal abscess seen in the CT scan with oral contast. No diverticulitis. Multiple thick-walled loops of small and large bowel in the region suggesting inflammatory or infectious etiology. No drainage done. -White count down to normal -Continue Cipro and Flagyl today day 9 of antibiotics -No repeat Repeat CT of the abdomen and pelvis needed as patient clinically improved and white count came down - C. difficile negative -Pain control with IV morphine and IV Tylenol -Continue GI prophylaxis -Cultures negative -Patient is tolerating diet well. She will be discharged to short-term rehabilitation and will finish her last dose of antibiotics tomorrow to complete 10 days of antibiotic course. #2 A. fib with rapid ventricular response/borderline blood pressure -Cardizem dose 30 mg SR twice a day to continue, BP tolerating this reduced dose well -ACS ruled out with negative troponins and EKG -Continue metoprolol 50 mg twice a day -H&H stable on Xarelto -We'll get a repeat H&H check on 01/26/2016 and report results to Dr. Neal. If H&H drops, Xarelto needs to really be reevaluated. Patient has a high chads score, benefits of anticoagulation coagulation outweigh the bleeding risk. #3 History of pernicious anemia -s/p 1 PRBC transfusion, H&H 9.2/28.4 -Iron studies suggest anemia of chronic disease -Guaic positive -Continued on Xarelto,H/H stable #4 History of HFpEF -Chest x-ray showed evidence of congestion. -Continue Lasix 40 mg daily, creatinine 1.2 -Potassium being repleted with KCL 40 meq PO daily -Repeat BEP check on 01/25/2017 and report results to Dr. 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 Last chemotherapy 2 weeks ago with prednisone for 4 days post chemotherapy. - Dr. Florentino aware. DVT prophylaxis XARELTO Regular diet Severe pain pathway Problem List: 1. ATRIAL FIBRILATION 2. Non Hodgkin's lymphoma 3. Weakness 4. Hypokalemia 5. CHF (congestive heart failure) Pain Ratin Pain Location: Abdomen and legs Pain Goal: Pain 4 or less Pain Plan: IV Dilaudid when necessary, Tylenol Tomorrow's Labs & Rationales: None patient will be discharged RUPESH HERNANDEZ MD 01/22/17 1134: Attending MD Review Statement Attending Statement Attending MD Statement: examined this patient, discuss w/resident/PA/JAIL KEEPER, agreed w/resident/PA/JAIL KEEPER, reviewed EMR data (avail), discussed with nursing, discussed with case mgmt, reviewed images Attending Assessment/Plan: Patient has multiple complaints and states that she really feels that she needs rehabilitation. She understands that physical therapy cleared her for home but she feels like she has special needs. I agree with her. She is an 86-year-old with lymphoma actively getting chemotherapy who is here with a diverticulitis now on by mouth Cipro and Flagyl. She is a very fine balance between dehydration and acute pulmonary edema and we have decreased her Lasix dose. She also had rapid A. fib and now she is on Cardizem with metoprolol and the Xarelto that we restarted with a crit stable. I do think she has medical needs that would make her qualify for rehabilitation but will follow-up closely.
--- NOTE | 2017-01-22 11:22 | Discharge Summary ---
See Addendum Visit Information Visit Dates Admission Date: 01/14/17 Discharge Date: 01/30/17 Hospital Course Course Attending Physician: MARY MAYBERRY,RUPESH Winslow Primary Care Physician: WILLIAM MAYBERRY,CHARITY Consulting Request: Consulting Specialty: Infectious Disease Hospital Course: 86 yo F from [facility], with h/o Afib on xarelto, NH large B-cell lymphoma on chemo (last was 2 weeks ago) with significant mediastinal lymphadenopathy, bone mets, neutropenia, CKD stage 3A, reactive airway disease with mild asthma, chronic diastolic heart failure with right heart dysfunction, pulmonary hypertension was BABA for sharp right lower quadrant pain, associated with 1 week h/o nause, vomiting and constipation. She was seen in ER 2 weeks ago for abdominal pain, however ER records showed she was evaluated for chest pain. Vitals at admission: tachycardic to 130's otherwise stable. Labs: WBC 11.6, H/H 8.5/25.6, elevated D-dimer, Na 133, trop neg, elevated [id number]. UA/ Utox neg. EKG: Afib. CTA chest no PE, cardiomegaly, b/l small pleural effusion, small airways disease. CT abd: Subacute diverticulitis with interloop abscess ([id number]), no bowel obstruction, hypodense lesions in spleen same as previous. Echo (2-16): EF 65%, mod MR, mod to severe pulm htn, moderate TR. She was treated in the hospital for: 1. Possible diverticulities with questionable abcess v/s Non Hodgkin lymphoma infiltration of bowel. : Initially patient was being admitted to [facility] floor, however as patient's HR was labile between 100- 150's at times, she was admitted to telemetry for close monitoring. Surgery was consulted in ER, no acute intervention was recommended as the patient did not have a surgical abdomen, plan was to manage conservatively. Patient was maintained NPO, on IV fluids, IV ceftriaxone and flagyl, and pancultures were sent. Xarelto was held in anticipation of need for surgery or IR guided perc drain. Pain control was achieved with with IV morphine and IV Tylenol. GI prophylaxis was initiated. Patient remained afebrile during the hospital course with a mild leukocytosis. CT scan with oral contrast was negative for any evidence of an abscess; therefore no aspiration or drainage was performed. ID was consulted for antibiotic management. Antibiotics were changed from IV to by mouth Cipro and Flagyl on day 5. Patient's diet was advanced as tolerated. Blood cultures were negative. Patient had some episodes of loose stool on the floor. C. difficile was negative. Patient worked with PT who cleared her for home but the patient felt that she had special medical needs and would require help with her care. She will be discharged to rehab having completed a total of 10 day course. Patient was instructed to follow-up with PCP within 1 week of discharge. Antibiotics started on 01/14/17 (total 10 days course) 2. Afib with rapid ventricular response/borderline blood pressure Admitted to telemetry to monitor for arrhythmias, since HR continued to remain rapid at 130- 150's, will IV cardizem drip was started for rate contro after IV Cardizem push. ACS was ruled out with negative troponins and EKG. Home dose of metoprolol was resumed and patient was continued on IV Cardizem dripas per cardiology recommendations.Patient status stable on the athletic monitor with no events recorded. Cardizem was transitioned to by mouth. Cardizem don't dose was later reduced to 30 mg SR twice a day due to borderline blood pressure. Patient was tachycardic on the floor and system validation engineer feltthat her tachycardia was secondary to anemia. Patient received 1 unit of blood transfusion during the hospital days stayresulting in improvement of tachycardia. Xarelto was restarted on day 6 as the benefits outweighed the risks of bleeding as pt high [id number] score. H&H remained stable on Xarelto. Patient was discharged with recommendations to check her CBCs on 01/29/2017 and report the values to Dr. Neal. Plan is to discontinue the Xarelto if H&H drops significantly/patient starts bleeding. 3.History of HfwPEF: Chest x-ray showed evidence of congestion at admission .Strict I's and O's, weight checks were maintained. Patient initially refused to take Lasix as it was stopped by her system validation engineer 2 days prior to admission. Lasix was continued after system validation engineer convincing the patient of its necessity.BEP was closely monitored and electrolytes repleted as required. Patient was discharged home on 40 mg daily dose of Lasix. Recommended to have repeat BP check on 01/29/2017 and reporting values to Dr. Neal. 4.NH large B-cell lymphoma: non-Hodgkin's lymphoma, diagnosed over 6 months prior to admission, and treated with Cytoxan, DIRECTOR CHILD 16 and prednisone over the past 5 months via a Port-A-Cath that was inserted 4 1/2 months prior to admission, with her most recent treatment 10 days prior to admission. Hematologic consult was obtained and they felt that patient's lymphoma was not active at this point. She had extensive lymphadenopathy .Plan is to do a PET scan as an outpatient. 5.Acute on chronic anemia (normocytic): h/o pernicious anemia. She was guaiac- positive. Iron studies revealed anemia of chronic disease. Patient received 1 unit of packed red blood cell transfusion. CBC was monitored on Xarelto. CBC remained stable. Patient would have a repeat CBC check on 01/25/2017 and report values to Dr Neal. 6.Suicidal ideation: Sitter was placed at admission. Psych consult was obtained. They did not feel that the patient was suicidal at this time and therefore the sitter was discontinued. Patient was frustated that her visiting nurse was not respondent to her complains therefore she spoke about sliting her wrists. Mentation remained stable during the hospital stay. DVT prophylaxis with ALPS and XARELTO NPO initially then diet was advanced to Regular diet Severe pain pathway I spoke to patient's son at length. I explained that given all of her competing medical problems namely her A. fib with Xarelto, chronic anemia, lymphoma with chemotherapy on and off and her tendency to go into heart failure that she is at very high risk for recurrent readmissions. She is DNR/DNI and he understands that things could get much worse. At this point she is going to rehabilitation to get her strength back with the plan to see Dr. Florentino as an outpatient. Allergies: Coded Allergies: Penicillins (RASH 12/16/16) acetaminophen (BURNING FEELING IN STOMACH 12/16/16) animal dander (PER MAR 01/14/17) latex (SORES 12/16/16) mold (UNKNOWN 12/16/16) Sulfa (Sulfonamide Antibiotics) (GI 12/16/16) aspirin (MILD GI 12/16/16) diazepam (GI 12/16/16) oxycodone (GI, MIGRAINE 12/16/16) propoxyphene (GI 12/16/16) Uncoded Allergies: COLOGNE (PER PT UPSETS HER WITH THE SMELL 10/17/16) HAIR SPRAY (PER PT UPSETS HER WITH THE SMELL 10/17/16) SMOKE (PER PT CANT STAND SMELLS IT UPSETS HER 10/17/16) TOBACCO (PER MAR 01/14/17) Disposition Summary Disposition Principal Diagnosis: Acute diverticulitis with questionable intra-abdominal abscess Additional Diagnosis: A. fib with rapid ventricular rate Anemia multifactorial Discharge Disposition: SNF Discharge Instructions General Discharge Information Code Status: Do Not Resucitate/Intubat Patient's Diet: regular diet Patient's Activity: as tolerated Follow-Up Instructions/Appts: #1 Please check BEP and CBC on 01/29/17 and report results to Dr Neal. #2 Please follow-up with your PCP within 1 week of discharge. #3. Please follow-up with Dr. Florentino within 2 weeks of discharge. #4 please follow-up with Dr. Neal within 2 weeks of discharge. Medications at Discharge Discharge Medications: Stop taking the following medications: Furosemide (Lasix) 80 MG TABLET ORAL TWICE DAILY Ondansetron (Zofran Odt) 8 MG TAB.RAPDIS ORAL Q8H as needed for NAUSEA Prednisone (Prednisone) 50 MG TABLET ORAL As Directed Continue taking these medications: Pantoprazole Sodium (Protonix) 40 MG TABLET. 1 Tablet ORAL TWICE DAILY Comments: NOT GIVEN IN THE HOSPITAL Metoprolol Tartrate (Lopressor) 50 MG TABLET 1 Tablet ORAL TWICE DAILY Comments: Last Taken: 01/22/17 Time: 9 AM Multivitamin (Multiple Vitamins) 1 EACH TABLET 1 Tablet ORAL DAILY Comments: NOT GIVEN IN THE HOSPITAL Calcium Carbonate/Vitamin D3 (Calcium 600 + Vit D Tablet) (Unknown Strength) TABLET Unknown Dose ORAL TWICE DAILY Comments: NOT GIVEN IN THE HOSPITAL Folic Acid (Folic Acid) 0.8 MG TABLET 1 Tablet ORAL TWICE DAILY Comments: NOT GIVEN IN THE HOSPITAL Magnesium Oxide (Magnesium Oxide) 400 MG TABLET 1 Tablet ORAL DAILY Comments: Last Taken: 01/22/17 Time: 1050 AM Cyanocobalamin (Vitamin B-12) (Cyanocobalamin Injection) 1,000 MCG/1 ML VIAL 1 Milliliters INTRAMUSC ONCE A MONTH Qty = 1 Comments: NOT GIVEN IN THE HOSPITAL Mirabegron (Myrbetriq) 25 MG TAB.ER.24H 1 Tablet ORAL DAILY Qty = 30 Comments: NOT GIVEN IN THE HOSPITAL Ascorbic Acid (Vitamin C) 500 MG TABLET 1 Tablet ORAL THREE TIMES DAILY Comments: NOT GIVEN IN THE HOSPITAL Glucosam Sul Na/Chondr Shepard A Na (Glucosamine-Chondroitin Tablet) 750 MG-600 MG TABLET 1 Tablet ORAL TWICE DAILY Comments: NOT GIVEN AT HOSPITAL Biotin (Biotin) 5 MG CAPSULE 1 Tablet ORAL DAILY Comments: NOT GIVEN IN THE HOSPITAL Lidocaine (Lidocaine) 5 % ADH..PATCH 1 Patch On the skin DAILY as needed for PAIN Comments: NOT GIVEN IN THE HOSPITAL Flaxseed Oil (Flax Oil) 1,000 MG CAPSULE 1 Capsule ORAL DAILY Comments: NOT GIVEN AT HOSPITAL [PRIMROSE OIL] 1,000 Milligram ORAL DAILY Comments: NOT GIVEN AT HOSPITAL Cholecalciferol (Vitamin D3) (Vitamin D3) 5,000 UNIT TABLET 1 Tablet ORAL DAILY Comments: NOT GIVEN AT HOSPITAL Vitamin E Mixed (Vitamin E) 1,000 UNIT CAPSULE 1 Capsule ORAL DAILY Comments: Last Taken: 12/18/16 Time: 4 PM Niacinamide (Niacin) 500 MG TABLET 1 Tablet ORAL DAILY Comments: NOT GIVEN AT HOSPITAL Rivaroxaban (Xarelto) 15 MG TABLET 1 Tablet ORAL 5 PM Qty = 90 Comments: Last Taken: 12/18/16 Time: 4:26 PM Tiotropium [place] (Spiriva) 18 MCG CAP.W.DEV 1 Capsule Inhale through mouth DAILY Comments: Last Taken: 12/19/16 Time: 0916 AM Tramadol HCl (Tramadol HCl) 50 MG TABLET 1 Tablet ORAL Q4H as needed for PAIN Comments: PER JAN Last Taken: 12/19/16 Time: 0915 AM Estradiol (Climara) 0.0375 MG/24 HOUR PATCH.TDWK 1 PATCH On the skin ONCE A WEEK Comments: NOT GIVEN AT HOSPITAL Hydromorphone HCl (Hydromorphone HCl) 2 MG TABLET 1 Tablet ORAL TWICE DAILY as needed for PAIN Comments: NOT GIVEN IN THE HOSPITAL Potassium Chloride (Klor-Con M20) 20 MEQ TAB.ER.PRT 1 Tablet ORAL DAILY Days = 30 Comments: PER JAN Prochlorperazine Maleate (Prochlorperazine Maleate) 10 MG TABLET 1 Tablet ORAL EVERY SIX HOURS as needed for N/V Comments: PER JAN Levothyroxine Sodium (Synthroid) 125 MCG TABLET 1 Tablet ORAL DAILY Comments: Last Taken: 01/22/17 Time: 640 AM Guaifenesin/Dextromethorphan (Tussin Dm Cough Syrup) 100 MG-10 MG/5 ML SYRUP 5-10 Milliliters ORAL Q4H as needed for COUGH Comments: Last Taken: 01/17/17 Time: 945 PM Ondansetron (Zofran Odt) 4 MG TAB.RAPDIS 1 Tablet SUBLINGUAL THREE TIMES DAILY as needed for NAUSEA Qty = 10 This prescription has been renewed Start taking the following new medications: Furosemide (Lasix) 40 MG TABLET 1 Tablet ORAL DAILY Days = 30 No Refills Ondansetron (Zofran Odt) 4 MG TAB.RAPDIS 1 Tablet SUBLINGUAL THREE TIMES DAILY as needed for NAUSEA Days = 4 No Refills Copies To: WILLIAM MAYBERRY,HOLLAND; MARY MAYBERRY,RUPESH Winslow; ALIREZA MAYBERRY,KITTY Winslow; NICHOLAS MAYBERRY, ZEKE Coppola; OTIS MAYBERRY PhD,SAEID Beavers Attending MD Review Statement Documenting Attending: MARY MAYBERRY,RUPESH Coppola; OTIS MAYBERRY PhD,SAEID Beavers
--- NOTE | 2017-01-22 14:37 | PN- Infect Dx ---
Subjective Subjective: Afebrile. She feels overall improved but still has multiple complaints Objective Last 24 Hrs of Vital Signs/I&O Vital Signs Date Time Temp Pulse Resp B/P Pulse O2 O2 Flow FiO2 Ox Delivery Rate 01/22 1058 Nasal 2.0L Cannula 01/22 1039 Nasal 2.0L Cannula 01/22 1014 Nasal 2.0L Cannula 01/22 0859 107 106/58 01/22 0858 107 106/58 01/22 0730 98.8 91 18 90/50 97 Nasal 2.0L Cannula 01/22 0030 97 86/44 01/22 0020 99.1 101 16 86/46 98 Nasal 3.0L Cannula 01/22 0000 Nasal 2.0L Cannula 01/21 2104 85 102/50 01/21 1600 95 Room Air 01/21 1545 98.6 84 18 100/52 96 Room Air Intake & Output 01/22 1600 01/22 0800 01/22 0000 Intake Total 250 450 Output Total 450 500 Balance -200 -50 Intake, IV 0 Intake, Oral 250 450 Number 0 0 Bowel Movements Output, Urine 450 500 Physical Exam Other Physical Findings: She appears comfortable in no acute distress Abdomen is soft, less tender to palpation, with no guarding, positive bowel sounds Extremities trace edema both lower extremities Results Last 24 Hours of Lab Results: Laboratory Tests 01/22 0550 Chemistry Sodium (137 - 145 mmol/L) 133 L Potassium (3.5 - 5.1 mmol/L) 4.0 Chloride (98 - 107 mmol/L) 102 Carbon Dioxide (22 - 30 mmol/L) 27 Anion Gap (5 - 16) 4 L BUN (7 - 17 mg/dL) 11 Creatinine (0.5 - 1.0 mg/dL) 1.2 H Estimated GFR (>60 ml/min) 42 L BUN/Creatinine Ratio (7 - 25 %) 9.2 Magnesium (1.6 - 2.3 mg/dL) 1.2 L Last 24 Hours of Bill Results: Stool C. difficile January 19 negative Recent Imaging Studies: X-ray of the right hip January 20 negative Assessment/Plan Impression: Stable with temperatures and white blood cell count remaining normal on Ciprofloxacin and Flagyl Day 8 of treatment for presumed diverticulitis. Suggestion: 1. Continue Ciprofloxacin and Flagyl for 2 more days
[2017-01-22 15:30] VITALS: BP 102/58
--- NOTE | 2017-01-22 15:46 | Event Note ---
Event Note Event Note: I'm just writing this note to clarify that the patient is not suicidal. The patient has lymphoma and is getting chemotherapy and was having abdominal symptoms on and off for the past week or so. She was getting extremely frustrated by the visiting nurse she felt was not taking her complaints seriously and that's why she made the comments she did on admission about wanting to end it all. She adamantly denies active or passive suicidality and in my opinion while she has a lot of medical problems and is certainly overwhelmed by the degree of problems but she is not suicidal or imminent danger to herself or others.
[2017-01-22 22:44] VITALS: BP 102/50
[2017-01-23 07:43] VITALS: BP 102/60
--- NOTE | 2017-01-23 08:10 | PN- Housestaff ---
JESUS MANUEL MAYBERRY,CAROL ANN 01/23/17 0809: Subjective Follow-up For: diverticulitis with likelyt abcess formation Complaints: no complaints Tele-Events Since Last Visit: No tele events overnight remianed in afib between 70-90 Subjective: She is doing well. No cmplains at this point except for mild abdominal discomfort. Review of Systems Constitutional: Reports: see HPI. Objective Last 24 Hrs of Vital Signs/I&O Vital Signs Date Time Temp Pulse Resp B/P Pulse O2 O2 Flow FiO2 Ox Delivery Rate 01/23 0743 98.2 94 20 102/60 98 Room Air 01/23 0000 97 Room Air 01/22 2244 98.9 117 20 102/50 97 Room Air 01/22 2236 110 102/50 01/22 2236 117 102/50 01/22 1600 Nasal 2.0L Cannula 01/22 1530 98.9 90 18 102/58 97 Nasal 2.0L Cannula 01/22 1058 Nasal 2.0L Cannula 01/22 1039 Nasal 2.0L Cannula 01/22 1014 Nasal 2.0L Cannula Intake & Output 01/23 1600 01/23 0800 01/23 0000 Intake Total 240 480 Output Total 150 Balance 240 330 Intake, Oral 240 480 Number 3 Bowel Movements Output, Urine 150 Physical Exam General Appearance: Alert, Oriented X3, Cooperative Skin: No Rashes, No Breakdown HEENT: Atraumatic, PERRLA Neck: Supple, No JVD Lymphatic: Axillary nl, Cervical nl Cardiovascular: Regular Rate, Normal S1, Normal S2 Lungs: Clear to Auscultation, Normal Air Movement Abdomen: mild tenderness Assessment/Plan Assessment: Ms. 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 Plan: 1. Acute diverticulitis with out evidence of intra-abdominal abscess 2. Proximal atrial fibrillation, with rapid ventricular response initially but now well controlled 3. History of pernicious anemia 4. History of of HFPeF 5. She has non-Hodgkin's B lymphoma currently on chemotherapy Treated with 6 cycles of Rituxan, Cytoxan, COMMERCIAL CREDIT OFFICER 16, vincristine and prednisone. Last chemotherapy 2 weeks ago with prednisone for 4 days post chemotherapy. Plan -Continue with telemetry -Continue with last dose of antibiotics today(ciprofloxacin and Flagyl for a total of 10 days)-Today is day 9 of her abx(confirmed with PCI).She missed Ciprofloxacin dose yesterday. -We will recheck patient's CBC, basic electrolyte panel, and magnesium(last checked on 01/21/2017) Replete electrolytes IV magnesium in particular -C. difficile has been negative so far -Continue with rate control with Cardizem and metoprolol and Xarelto for anticoagulation -Guaiac positive stools in the setting of pernicious anemia, -Continue with Lasix 40 mg -Encourage ambulation, and taper oxygen as tolerated . the patient is not on home oxygen at home -Due to prophylaxis at all times Problem List: 1. Diverticulitis Pain Ratin Pain Location: abdominal paion Pain Goal: Remain pain free Pain Plan: iv morphine as needed Tomorrow's Labs & Rationales: cbc bep Consulting Request: Consulting Specialty: Infectious Disease RUPESH HERNANDEZ MD 01/23/17 1306: Attending MD Review Statement Attending Statement Attending MD Statement: examined this patient, discuss w/resident/PA/PROGRAM ADVOCATE, agreed w/resident/PA/PROGRAM ADVOCATE, reviewed EMR data (avail), discussed with nursing, discussed with case mgmt, reviewed images Attending Assessment/Plan: Patient overall is feeling okay although when asked she tends to have multiple complaints. She is hypomagnesemic and will replace her with Slow-Mag orally as the mag oxide is giving her diarrhea. Her blood pressure is relatively stable and she is mildly tachycardia but heart rate is within 90-100 on by mouth metoprolol and by mouth Cardizem with by mouth Lasix at a lower dose. It appears that she didn't get any ciprofloxacin yesterday, it's unclear why. As per ID yesterday she has 2 more days left of the Cipro and Flagyl for diverticulitis in a patient with lymphoma actively getting chemotherapy. She is on Xarelto and her hematocrit is stable, she has anemia of chronic disease but her chads score is high and she is getting Xarelto for A. fib. The plan is STR for medical reasons.
[2017-01-23 13:37] LABS: ABSOLUTE BASOPHIL COUNT 0 /CUMM (0.0-0.2); ABSOLUTE EOSINOPHIL COUNT 0.1 /CUMM (0.0-0.7); ABSOLUTE GRANULOCYTE CT 4.7 /CUMM (1.4-6.5); ABSOLUTE LYMPH COUNT 1.6 /CUMM (1.2-3.4); ABSOLUTE MONOCYTE COUNT 1.2 /CUMM (0.10-0.60); BASOPHIL % 0.3 % (0.0-2.0); EOSINOPHIL % 1.7 % (0-5); GRANULOCYTE % 61.4 % (42.2-75.2); HEMATOCRIT 27.4 % (37-47); MEAN CORPUSCULAR HGB CONC 32.3 G/DL (33.0-37.0); MEAN CORPUSCULAR VOLUME 86.6 FL (81.0-99.0); MEAN PLATELET VOLUME 8.3 FL (7.4-10.4); PLATELET COUNT 240 /CUMM (130-400); RBC DISTRIBUTION WIDTH 20.2 % (11.5-14.5); RED BLOOD CELL CT 3.16 /CUMM (4.20-5.40); WHITE BLOOD CELL COUNT 7.6 /CUMM (4.8-10.8)
[2017-01-23 15:52] VITALS: BP 100/56
[2017-01-23 23:47] VITALS: BP 120/60
--- NOTE | 2017-01-24 07:52 | PN- Housestaff ---
PAULA MAURER 01/24/17 0751: Subjective Follow-up For: Diverticulitiswith abcess formation A. 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 She was concerned that she had another bowel movement which was reddish in color. She also reports of abdominal pain 04/21, which she has had since her hospital stay. Patient otherwise has been afebrile, Blood pressure stable, no leukocytosis. No chest pain/SOB/abdominal pain etc. Review of Systems Constitutional: Reports: see HPI. Objective Last 24 Hrs of Vital Signs/I&O Vital Signs Date Time Temp Pulse Resp B/P Pulse O2 O2 Flow FiO2 Ox Delivery Rate 01/24 1155 87 104/50 01/24 1010 Nasal 2.0L Cannula 01/24 0952 Nasal 2.0L Cannula 01/24 0922 87 104/50 01/24 0816 97.8 87 18 104/50 97 Nasal 1.0L Cannula 01/23 2347 97.9 80 18 120/60 97 Nasal Cannula 01/23 2130 107 120/60 01/23 2130 107 120/60 01/23 1552 98.4 77 20 100/56 98 Nasal 2.0L Cannula Intake & Output 01/24 1600 01/24 0800 01/24 0000 Intake Total 300 Output Total 400 Balance -100 Intake, Oral 300 Number 1 Bowel Movements Output, Urine 400 Physical Exam General Appearance: Alert, Oriented X3, Cooperative, No Acute Distress Skin: No Rashes, No Breakdown HEENT: Atraumatic Neck: Supple Cardiovascular: Regular Rate, Normal S1, Normal S2 Lungs: Normal Air Movement Abdomen: Normal Bowel Sounds, Soft Extremities: Normal Pulses Current Medications: Current Medications Sig/Timi Start time Last Medication Dose Route Stop Time Status Admin Ciprofloxacin 500 MG BID 01/23 1000 DC 01/23 PO 01/26 0600 2131 Dicyclomine HCl 20 MG 4 TIMES/DAY 01/23 1745 AC 01/24 PO 0922 Diltiazem HCl 30 MG BID 01/19 2200 AC 01/24 PO 1155 Famotidine 20 MG BID 01/24 1030 DC PO Furosemide 40 MG DAILY 01/18 1000 AC 01/24 PO 1110 Guaifenesin/ 10 ML Q4H PRN 01/15 0200 AC 01/17 Dextromethorphan PO 2147 Heparin Sodium 500 UNIT ONCE ONE 01/24 0215 DC 01/24 (Porcine) IV 01/24 0216 0501 Levothyroxine Sodium 0.125 MG DAILY AC 01/15 0700 AC 01/24 PO 0501 Magnesium Chloride 64 MG BID 01/23 1030 AC 01/24 PO 1155 Magnesium Oxide 400 MG DAILY 01/15 1000 DC 01/22 PO 1049 Melatonin 3 MG AT BEDTIME 01/15 2200 AC 01/23 PO 2131 Metoprolol Tartrate 50 MG BID 01/15 0500 AC 01/24 PO 0922 Metronidazole 250 MG Q8H 01/19 1600 DC 01/23 PO 01/25 0800 0903 Morphine Sulfate 2 MG Q4P PRN 01/15 0200 AC 01/21 IV 1617 Omeprazole 40 MG DAILY AC 01/21 0700 AC 01/24 PO 0501 Potassium Chloride 20 MEQ DAILY 01/23 1009 AC 01/24 PO 1110 Prochlorperazine 10 MG Q6 PRN 01/15 0200 AC 01/22 PO 0938 Rivaroxaban 15 MG AT BEDTIME 01/20 2200 AC 01/23 PO 2131 Tiotropium [place] 1 PUF DAILY 01/15 1000 AC 01/24 INH 0922 Last 24 Hrs of Lab/Bill Results Last 24 Hrs of Labs/Mics: Laboratory Tests 01/24/17 1145: CBC w Diff Pending, WBC Pending, RBC Pending, Hgb Pending, Hct Pending, MCV Pending, MCH Pending, RDW Pending, Plt Count Pending, MPV Pending, PUBS MCHC Pending 01/23/17 1250: Anion Gap 7, Estimated GFR 59 L, BUN/Creatinine Ratio 12.2, Magnesium 1.3 L, CBC w Diff NO MAN DIFF REQ, RBC 3.16 L, MCV 86.6, MCH 28.0, RDW 20.2 H, MPV 8.3, Gran % 61.4, Lymphocytes % 20.7, Monocytes % 15.9 H, Eosinophils % 1.7, Basophils % 0.3, Absolute Granulocytes 4.7, Absolute Lymphocytes 1.6, Absolute Monocytes 1.2 H, Absolute Eosinophils 0.1, Absolute Basophils 0, PUBS MCHC 32.3 L Assessment/Plan Assessment: Patient is a pleasant 86 year old women from senior housing, with h/o Afib on xarelto, [place]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 Problem list 1. Acute diverticulitis with evidence of intra-abdominal abscess 2. Proximal atrial fibrillation, with rapid ventricular response initially but now well controlled 3. History of pernicious anemia 4. History of of HFPeF 5. 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 Last chemotherapy 2 weeks ago with prednisone for 4 days post chemotherapy. Plan Possible diverticulities with abcess Patient has completed her 10 day course of ciprofloxacin and flagyl for possible diverticulitis with abscess involving the transverse colon. C. diff negative She will be discharged to rehab today. CBC pending from this am, will monitor for drop in hemoglobin. Patient will get cbc re-checked on 01/29/17 Patient has guaiac positive stools Electrolyte abnormality, monitored For atrial fibrilation, patient is on rate continue with rate control with Cardizem and metoprolol and Xarelto for anticoagulation. She will be maintined on anticoagulation, as her risk of stroke outweight her risk of bleeding from xarelto. She needs to be closely monitored. She will be continued on Lasix 40 mg - Encourage ambulation, and taper oxygen as tolerated . The patient is not on home oxygen at home -Dvt to prophylaxis,patient is on xarelto. DNR/DNI Problem List: 1. ATRIAL FIBRILATION Pain Ratin Pain Location: abdomen Pain Goal: Pain 4 or less Pain Plan: tylenol prn for pain Tomorrow's Labs & Rationales: none Consulting Request: Consulting Specialty: Infectious Disease RUPESH HERNANDEZ MD 01/24/17 1100: Attending MD Review Statement Attending Statement Attending MD Statement: examined this patient, discuss w/resident/PA/FLUXER, agreed w/resident/PA/FLUXER, discussed with family, reviewed EMR data (avail), discussed with nursing, discussed with case mgmt, reviewed images, amended to note Attending Assessment/Plan: Patient has multiple complaints but overall she does acknowledge feeling better and acknowledges that we have is the best discharge plan for her (STR) with the idea of getting her strength back to then follow-up with Dr. Florentino. She is a very complicated 86-year-old with non-Hodgkin's lymphoma actively getting chemotherapy who was admitted with a diverticulitis and a question of an abscess. She's finished a 10 day course of Cipro and Flagyl. Her course was complicated by rapid atrial fibrillation requiring IV Cardizem now on by mouth Cardizem and Xarelto by mouth. She has acute on chronic anemia however the risks of stopping the Xarelto with stroke outweigh the benefits even though we know that she has this chronic anemia. We've cut her dose of Lasix because of her borderline blood pressure but she does have a tendency to go into acute pulmonary edema. The plan is STR with close outpatient follow-up. I've asked for labs on Sunday the to closely follow-up the BEP and BUN and creatinine and she is going to follow-up with Dr. Florentino and Dr. Neal as an outpatient. I spoke to her son at length as well and total time spent coordinating discharge was 36 minutes.
[2017-01-24 08:16] VITALS: BP 104/50
[2017-01-24 13:03] LABS: ABSOLUTE BASOPHIL COUNT 0 /CUMM (0.0-0.2); ABSOLUTE EOSINOPHIL COUNT 0.2 /CUMM (0.0-0.7); ABSOLUTE GRANULOCYTE CT 5.5 /CUMM (1.4-6.5); ABSOLUTE LYMPH COUNT 1.8 /CUMM (1.2-3.4); ABSOLUTE MONOCYTE COUNT 1.3 /CUMM (0.10-0.60); BASOPHIL % 0.1 % (0.0-2.0); EOSINOPHIL % 2.2 % (0-5); GRANULOCYTE % 62.5 % (42.2-75.2); MEAN CORPUSCULAR HGB 28.5 PG (27.0-31.0); MEAN CORPUSCULAR VOLUME 86.3 FL (81.0-99.0); MEAN PLATELET VOLUME 8.7 FL (7.4-10.4); PLATELET COUNT 265 /CUMM (130-400); RBC DISTRIBUTION WIDTH 20.8 % (11.5-14.5); RED BLOOD CELL CT 3.59 /CUMM (4.20-5.40); WHITE BLOOD CELL COUNT 8.7 /CUMM (4.8-10.8)
[2017-01-24 18:47] VITALS: BP 112/60
[2017-01-24 23:48] VITALS: BP 102/50
--- NOTE | 2017-01-25 07:23 | PN- Housestaff ---
See Addendum Subjective Follow-up For: Diverticulitiswith abcess formation A. fib with rapid ventricular response NH large B-cell lymphoma Pernicious anemia Tele-Events Since Last Visit: Patient had a 3 beat round of V. tach around 2 AM Subjective: Patient seen and examined today. She feels much better and was sitting comfortably in the bed. She had her breakfast. No new complaints at this point. Yesterday she was started on 2 mg by mouth Dilaudid every 12 that has been helping her with abdominal pain. Review of Systems Constitutional: Reports: see HPI. Objective Last 24 Hrs of Vital Signs/I&O Vital Signs Date Time Temp Pulse Resp B/P Pulse O2 O2 Flow FiO2 Ox Delivery Rate 01/25 0818 108 104/60 01/25 0818 108 104/60 01/25 0816 98.2 90 20 104/60 94 Room Air 01/25 0000 98 Room Air 01/24 2348 98.9 97 22 102/50 98 Room Air 01/24 2122 97 102/50 01/24 2122 97 102/50 01/24 1847 98.7 92 20 112/60 96 Nasal Cannula 01/24 1155 87 104/50 01/24 1010 Nasal 2.0L Cannula 01/24 0952 Nasal 2.0L Cannula 01/24 0922 87 104/50 Intake & Output 01/25 1600 01/25 0800 01/25 0000 Intake Total 120 480 Output Total 350 300 Balance -230 180 Intake, Oral 120 480 Number 0 0 Bowel Movements Output, Urine 350 300 Physical Exam General Appearance: Alert, Oriented X3, Cooperative, No Acute Distress Skin: No Rashes, No Breakdown HEENT: Atraumatic Neck: Supple Cardiovascular: tachycardia, irregular rhythm Lungs: decreased breath sounds bilaterally due to body habitus Abdomen: Normal Bowel Sounds, Soft, No Tenderness Neurological: Normal Speech Extremities: Normal Pulses Current Medications: Current Medications Sig/Timi Start time Last Medication Dose Route Stop Time Status Admin Ciprofloxacin 500 MG BID 01/23 1000 DC 01/23 PO 01/26 0600 2131 Dicyclomine HCl 20 MG 4 TIMES/DAY 01/23 1745 AC 01/24 PO 2322 Diltiazem HCl 30 MG BID 01/19 2200 AC 01/25 PO 0818 Famotidine 20 MG BID 01/24 1030 DC PO Furosemide 40 MG DAILY 03/09 1000 AC 01/25 PO 0818 Guaifenesin/ 10 ML Q4H PRN 01/15 0200 AC 01/17 Dextromethorphan PO 2147 Hydromorphone HCl 2 MG .STK-MED ONE 01/24 1657 DC PO 01/24 1658 Hydromorphone HCl 2 MG BID PRN 01/24 1515 AC 01/24 PO 1510 Levothyroxine Sodium 0.125 MG DAILY AC 01/15 0700 AC 01/25 PO 0753 Magnesium Chloride 64 MG BID 01/23 1030 AC 01/24 PO 2323 Melatonin 3 MG AT BEDTIME 01/15 2200 AC 01/24 PO 2323 Metoprolol Tartrate 50 MG BID 01/15 0500 AC 01/25 PO 0818 Metronidazole 250 MG Q8H 01/19 1600 DC 01/23 PO 01/25 0800 0903 Morphine Sulfate 2 MG Q4P PRN 01/15 0200 AC 01/21 IV 1617 Omeprazole 40 MG DAILY AC 01/21 0700 AC 01/25 PO 0626 Potassium Chloride 20 MEQ DAILY 01/23 1009 AC 01/24 PO 1110 Prochlorperazine 10 MG Q6 PRN 01/15 0200 AC 01/22 PO 0938 Rivaroxaban 15 MG AT BEDTIME 01/20 2200 AC 01/24 PO 2122 Tiotropium [place] 1 PUF DAILY 01/15 1000 AC 01/24 INH 0922 Last 24 Hrs of Lab/Bill Results Last 24 Hrs of Labs/Mics: Laboratory Tests 01/24/17 1145: CBC w Diff NO MAN DIFF REQ, RBC 3.59 L, MCV 86.3, MCH 28.5, RDW 20.8 H, MPV 8.7, Gran % 62.5, Lymphocytes % 20.8, Monocytes % 14.4 H, Eosinophils % 2.2, Basophils % 0.1, Absolute Granulocytes 5.5, Absolute Lymphocytes 1.8, Absolute Monocytes 1.3 H, Absolute Eosinophils 0.2, Absolute Basophils 0, PUBS MCHC 33.0 Assessment/Plan Assessment: Patient is a pleasant 86 year old women from senior housing, with h/o Afib on xarelto, [place]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 Echo from 10/27 1. Normal EF of 65%. 2. Mild right ventricular enlargment. 3. Moderate left atrial enlargment. 4. Moderate mitral regurgitation with moderate mitral annular calcification. 5. Mild to moderate tricuspid regurgitation. 6. Mild aortic regurgitation. 7. Trace pulmonic regurgitation. 8. Moderate to severe pulmonary hypertension. Problem list 1. Acute diverticulitis with evidence of intra-abdominal abscess 2. Proximal atrial fibrillation, with rapid ventricular response initially but now well controlled 3. History of pernicious anemia 4. History of of HFPeF 5. 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 Last chemotherapy 2 weeks ago with prednisone for 4 days post chemotherapy. Plan Possible diverticulities with questionable abcess v/s Non Hodgkin lymphoma infiltration of bowel. Patient has completed her 10 day course of ciprofloxacin and flagyl for possible diverticulitis with abscess involving the transverse colon. She will get a PET scan as an outpatient for further evaluation of her lympoma spread. C. diff negative She is ready to be discharged to rehabilitation but is awaiting state approval. Her hemoglobin has been stable Plan is to discontinue the Xarelto if H&H drops significantly/patient starts bleeding. Electrolyte abnormality, stable now For atrial fibrilation, patient is on rate continue with rate control with Cardizem and metoprolol and Xarelto for anticoagulation. She will be maintined on anticoagulation, as her risk of stroke outweight her risk of bleeding from xarelto. She needs to be closely monitored. Heart failure with preserved EF She will be continued on Lasix 40 mg - Patient is saturating 94% on room air today we'll continue to monitor -Dvt to prophylaxis,patient is on xarelto. DNR/DNI Problem List: 1. Non Hodgkin's lymphoma Pain Ratin Pain Location: abdomen Pain Goal: Pain 4 or less Pain Plan: tylenol and dilaudid prnf or pain Tomorrow's Labs & Rationales: none Consulting Request: Consulting Specialty: Infectious Disease
[2017-01-25 08:16] VITALS: BP 104/60
--- NOTE | 2017-01-25 10:51 | PN- Infect Dx ---
Subjective Subjective: Afebrile. She feels overall improved though still reports mild abdominal discomfort and soft stools. Objective Last 24 Hrs of Vital Signs/I&O Vital Signs Date Time Temp Pulse Resp B/P Pulse O2 O2 Flow FiO2 Ox Delivery Rate 01/25 0818 108 104/60 01/25 0818 108 104/60 01/25 0816 98.2 90 20 104/60 94 Room Air 01/25 0000 98 Room Air 01/24 2348 98.9 97 22 102/50 98 Room Air 01/24 2122 97 102/50 01/24 2122 97 102/50 01/24 1847 98.7 92 20 112/60 96 Nasal Cannula 01/24 1155 87 104/50 Intake & Output 01/25 1600 01/25 0800 01/25 0000 Intake Total 120 480 Output Total 350 300 Balance -230 180 Intake, Oral 120 480 Number 0 0 Bowel Movements Output, Urine 350 300 Physical Exam Other Physical Findings: She appears comfortable in no acute distress Abdomen is soft, tender on palpation, particularly on the right side, with no guarding or rebound, positive bowel sounds Extremities no cyanosis, clubbing or edema Results Last 24 Hours of Lab Results: Laboratory Tests 01/24 1145 Hematology CBC w Diff NO MAN DIFF REQ WBC (4.8 - 10.8 /CUMM) 8.7 RBC (4.20 - 5.40 /CUMM) 3.59 L Hgb (12.0 - 16.0 G/DL) 10.2 L Hct (37 - 47 %) 31.0 L MCV (81.0 - 99.0 FL) 86.3 MCH (27.0 - 31.0 PG) 28.5 RDW (11.5 - 14.5 %) 20.8 H Plt Count (130 - 400 /CUMM) 265 MPV (7.4 - 10.4 FL) 8.7 Gran % (42.2 - 75.2 %) 62.5 Lymphocytes % (20.5 - 51.1 %) 20.8 Monocytes % (1.7 - 9.3 %) 14.4 H Eosinophils % (0 - 5 %) 2.2 Basophils % (0.0 - 2.0 %) 0.1 Absolute Granulocytes (1.4 - 6.5 /CUMM) 5.5 Absolute Lymphocytes (1.2 - 3.4 /CUMM) 1.8 Absolute Monocytes (0.10 - 0.60 /CUMM) 1.3 H Absolute Eosinophils (0.0 - 0.7 /CUMM) 0.2 Absolute Basophils (0.0 - 0.2 /CUMM) 0 PUBS MCHC (33.0 - 37.0 G/DL) 33.0 Last 24 Hours of Bill Results: No recent cultures Assessment/Plan Impression: Stable with temperatures and white blood cell count remaining normal now off antibiotics after a 10 day course of treatment for presumed diverticulitis. Suggestion: 1. Continue to follow off antibiotics Will no longer follow at this time but please call with any questions
[2017-01-25 16:00] VITALS: BP 106/58
[2017-01-25 21:38] VITALS: BP 92/50
[2017-01-25 22:35] VITALS: BP 100/50
[2017-01-26 06:40] VITALS: BP 110/60
--- NOTE | 2017-01-26 07:33 | PN- Housestaff ---
See Addendum Subjective Follow-up For: 1. Acute diverticulitis with evidence of intra-abdominal abscess 2. Proximal atrial fibrillation, with rapid ventricular response initially but now well controlled 3. History of pernicious anemia 4. History of of HFPeF 5. 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 Last chemotherapy 2 weeks ago with prednisone for 4 days post chemotherapy. Subjective: Patient seen and examined. She reports that her legs feel odd and she wanted a different remote for the TV. She did not have any chest pain or shortness of breath. Her abdominal pain has improved. She is awaiting an on-site approval for discharge to rehabilitation since she made some suicidal commands earlier on admission. Review of Systems Constitutional: Reports: see HPI. Objective Last 24 Hrs of Vital Signs/I&O Vital Signs Date Time Temp Pulse Resp B/P Pulse O2 O2 Flow FiO2 Ox Delivery Rate 01/26 1432 98.0 103 20 98/56 92 01/26 0925 110/60 01/26 0925 110/60 01/26 0800 95 01/26 0640 98.1 83 18 110/60 95 Room Air 01/25 2249 96 100/50 01/25 2235 97.5 96 20 100/50 95 Room Air 01/25 2138 98.7 87 20 92/50 96 Room Air 01/25 2135 87 92/50 Intake & Output 01/26 1600 01/26 0800 01/26 0000 Intake Total 480 100 680 Output Total 475 150 Balance 5 100 530 Intake, Oral 480 100 680 Number 0 1 Bowel Movements Output, Urine 475 150 Physical Exam General Appearance: Alert, Oriented X3, Cooperative, No Acute Distress Skin: No Rashes, No Breakdown HEENT: Atraumatic Neck: Supple Cardiovascular: Regular Rate, Normal S1, Normal S2 Lungs: Clear to Auscultation, Normal Air Movement Abdomen: Soft, No Tenderness, No Hepatospenomegaly Neurological: Normal Speech, Normal Tone Extremities: No Edema, Normal Pulses Current Medications: Current Medications Sig/Timi Start time Last Medication Dose Route Stop Time Status Admin Dicyclomine HCl 20 MG 4 TIMES/DAY 01/23 1745 AC 01/26 PO 0925 Diltiazem HCl 30 MG BID 01/19 220 AC 01/26 PO 0925 Furosemide 40 MG DAILY 01/18 1000 AC 01/26 PO 0925 Guaifenesin/ 10 ML Q4H PRN 01/15 0200 AC 01/17 Dextromethorphan PO 2147 Hydromorphone HCl 2 MG BID PRN 01/24 1515 AC 01/26 PO 0937 Levothyroxine Sodium 0.125 MG DAILY AC 01/15 0700 AC 01/26 PO 0620 Magnesium Chloride 64 MG BID 01/23 1030 AC 01/26 PO 0927 Melatonin 3 MG AT BEDTIME 01/15 2200 AC 01/25 PO 2248 Metoprolol Tartrate 50 MG BID 01/15 0500 AC 01/26 PO 0925 Morphine Sulfate 2 MG Q4P PRN 01/15 0200 AC 01/21 IV 1617 Omeprazole 40 MG DAILY AC 01/21 0700 AC 01/26 PO 0620 Potassium Chloride 20 MEQ DAILY 01/23 1009 AC 01/26 PO 0925 Prochlorperazine 10 MG Q6 PRN 01/15 0200 AC 01/22 PO 0938 Rivaroxaban 15 MG AT BEDTIME 01/20 2200 AC 01/25 PO 2135 Tiotropium [place] 1 PUF DAILY 01/15 1000 AC 01/26 INH 0927 Assessment/Plan Assessment: Patient is a pleasant 86 year old women from senior [facility], with h/o Afib on xarelto, [place]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 Echo from 10/27 1. Normal EF of 65%. 2. Mild right ventricular enlargment. 3. Moderate left atrial enlargment. 4. Moderate mitral regurgitation with moderate mitral annular calcification. 5. Mild to moderate tricuspid regurgitation. 6. Mild aortic regurgitation. 7. Trace pulmonic regurgitation. 8. Moderate to severe pulmonary hypertension. Problem list 1. Acute diverticulitis with evidence of intra-abdominal abscess 2. Proximal atrial fibrillation, with rapid ventricular response initially but now well controlled 3. History of pernicious anemia 4. History of of HFPeF 5. 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 Last chemotherapy 2 weeks ago with prednisone for 4 days post chemotherapy. Plan Possible diverticulities with questionable abcess v/s Non Hodgkin lymphoma infiltration of bowel. Patient has completed her 10 day course of ciprofloxacin and flagyl for possible diverticulitis with abscess involving the transverse colon. She will get a PET scan as an outpatient for further evaluation of her lympoma spread. C. diff negative She is ready to be discharged to rehabilitation but is awaiting state approval. Her hemoglobin has been stable Plan is to discontinue the Xarelto if H&H drops significantly/patient starts bleeding. Electrolyte abnormality, stable now For atrial fibrilation, patient is on rate continue with rate control with Cardizem and metoprolol and Xarelto for anticoagulation. She will be maintined on anticoagulation, as her risk of stroke outweight her risk of bleeding from xarelto. She needs to be closely monitored. Heart failure with preserved EF She will be continued on Lasix 40 mg - Patient is saturating 94% on room air today we'll continue to monitor -Dvt to prophylaxis,patient is on xarelto. DNR/DNI Problem List: 1. Non Hodgkin's lymphoma Pain Ratin Pain Location: abdomen Pain Goal: Pain 4 or less Pain Plan: tylenol prn for pain Tomorrow's Labs & Rationales: none Consulting Request: Consulting Specialty: Infectious Disease
--- NOTE | 2017-01-26 13:18 | PN- Cardiology ---
Subjective Subjective: * Patient complains of swollen feet. Otherwise is comfortable without shortness of breath. * atrial fibrillation with controlled heart rate. Objective Vital Signs and I&Os Vital Signs Date Time Temp Pulse Resp B/P Pulse O2 O2 Flow FiO2 Ox Delivery Rate 01/26 0925 110/60 01/26 0925 110/60 01/26 0800 95 01/26 0640 98.1 83 18 110/60 95 Room Air 01/25 2249 96 100/50 01/25 2235 97.5 96 20 100/50 95 Room Air 01/25 2138 98.7 87 20 92/50 96 Room Air 01/25 2135 87 92/50 01/25 1600 95 Room Air 01/25 1600 96.9 79 20 106/58 95 Room Air Intake & Output 01/26 1600 01/26 0800 01/26 0000 01/25 1600 01/25 0800 01/25 0000 Intake Total 100 680 760 120 480 Output Total 150 350 300 Balance 100 530 760 -230 180 Intake, Oral 100 680 760 120 480 Number 1 1 0 0 Bowel Movements Output, Urine 150 350 300 Physical Exam: General: WD/ WN female in NAD; alert and oriented x 3 Neck: no JVD, no carotid bruit Heart: irregularly irregular, no murmur Lungs: scant crackles at bases bilaterally Extremties: 1+ bipedal edema Assessment/Plan Assessment/Plan * Shayna is doing better in regard to her breathing but does have some crackles. Increase Lasix to 60mg PO daily. This will hopefully help her pedal edema. Ensure that she is on a low sodium diet. Continue her current dose of Metoprolol and Cardizem. * The patient's anemia is improving along with her fatigue and tachycardia. Continue telemetry? Yes
[2017-01-26 14:32] VITALS: BP 98/56
[2017-01-27 05:41] VITALS: BP 116/50
--- NOTE | 2017-01-27 09:48 | PN- Housestaff ---
Subjective Follow-up For: 1. Acute diverticulitis with evidence of intra-abdominal abscess 2. Proximal atrial fibrillation, with rapid ventricular response initially but now well controlled 3. History of pernicious anemia 4. History of of HFPeF 5. She has non-Hodgkin's B lymphoma currently on chemotherapy 6-B/L LE edema Review of Systems Constitutional: Reports: no symptoms. Objective Last 24 Hrs of Vital Signs/I&O Vital Signs Date Time Temp Pulse Resp B/P Pulse O2 O2 Flow FiO2 Ox Delivery Rate 01/27 1602 112/56 01/27 1414 97.9 81 20 100/50 98 Nasal 2.0L Cannula 01/27 1052 78 100/50 01/27 0800 Nasal Cannula 01/27 0541 97.9 85 20 116/50 98 Room Air 01/26 2110 102 114/60 Intake & Output 01/27 1600 01/27 0800 01/27 0000 Intake Total 700 240 240 Output Total Balance 700 240 240 Intake, Oral 700 240 240 Number 3 1 Bowel Movements Physical Exam General Appearance: Alert Current Medications: Current Medications Sig/Timi Start time Last Medication Dose Route Stop Time Status Admin Dicyclomine HCl 20 MG 4 TIMES/DAY 01/23 1745 AC 01/27 PO 1429 Diltiazem HCl 30 MG BID 01/19 2200 AC 01/27 PO 1052 Furosemide 40 MG DAILY 01/18 1000 AC 01/26 PO 0925 Guaifenesin/ 10 ML Q4H PRN 01/15 0200 AC 01/17 Dextromethorphan PO 2147 Hydromorphone HCl 2 MG BID PRN 01/24 1515 AC 01/26 PO 0937 Levothyroxine Sodium 0.125 MG DAILY AC 01/15 07 AC 01/27 PO 0521 Magnesium Chloride 64 MG BID 01/23 1030 AC 01/27 PO 1246 Melatonin 3 MG AT BEDTIME 01/15 2200 AC 01/26 PO 2110 Metoprolol Tartrate 50 MG BID 01/15 0500 AC 01/26 PO 2110 Morphine Sulfate 2 MG Q4P PRN 01/15 0200 AC 01/21 IV 1617 Omeprazole 40 MG DAILY AC 01/21 0700 AC 01/27 PO 0521 Potassium Chloride 20 MEQ DAILY 01/23 1009 AC 01/27 PO 1246 Prochlorperazine 10 MG Q6 PRN 01/15 0200 AC 01/22 PO 0938 Rivaroxaban 15 MG AT BEDTIME 01/20 2200 AC 01/26 PO 0 Tiotropium [place] 1 PUF DAILY 01/15 1000 AC 01/27 INH 1100 Assessment/Plan Assessment: Patient is a pleasant 86 year old women from [facility], with h/o Afib on xarelto, NH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 Echo from 10/27 1. Normal EF of 65%. 2. Mild right ventricular enlargment. 3. Moderate left atrial enlargment. 4. Moderate mitral regurgitation with moderate mitral annular calcification. 5. Mild to moderate tricuspid regurgitation. 6. Mild aortic regurgitation. 7. Trace pulmonic regurgitation. 8. Moderate to severe pulmonary hypertension. Problem list 1. Acute diverticulitis with evidence of intra-abdominal abscess 2. Proximal atrial fibrillation, with rapid ventricular response initially but now well controlled 3. History of pernicious anemia 4. History of of HFPeF 5. 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 Last chemotherapy 2 weeks ago with prednisone for 4 days post chemotherapy. Plan Possible diverticulities with questionable abcess v/s Non Hodgkin lymphoma infiltration of bowel. Patient has completed her 10 day course of ciprofloxacin and flagyl for possible diverticulitis with abscess involving the transverse colon. She will get a PET scan as an outpatient for further evaluation of her lympoma spread. C. diff negative She is ready to be discharged to rehabilitation but is awaiting state approval. Her hemoglobin has been stable Plan is to discontinue the Xarelto if H&H drops significantly/patient starts bleeding. Electrolyte abnormality, stable now For atrial fibrilation, patient is on rate continue with rate control with Cardizem and metoprolol and Xarelto for anticoagulation. She will be maintined on anticoagulation, as her risk of stroke outweight her risk of bleeding from xarelto. She needs to be closely monitored. Heart failure with preserved EF She will be continued on Lasix 40 mg - Patient is saturating 94% on room air today we'll continue to monitor -Dvt to prophylaxis,patient is on xarelto. DNR/DNI Consulting Request: Consulting Specialty: Infectious Disease
--- NOTE | 2017-01-27 11:16 | PN- Att Addend ---
Attending Addendum Attending Brief Note Patient seen and examined. Plan of care discussed with the medical team and the patient. Available lab work and radiology test reports were reviewed. Her son is at the bedside. She complains of mild abdominal pain but no fever chills nausea or vomiting. Her by mouth intake is relatively poor still with only 820 mL yesterday. Patient has been afebrile and vital signs are currently stable. Labs were reviewed. Vital Signs Date Time Temp Pulse Resp B/P Pulse O2 O2 Flow FiO2 Ox Delivery Rate 01/27 1052 78 100/50 01/27 0541 97.9 85 20 116/50 98 Room Air 01/26 2110 102 114/60 01/26 1432 98.0 103 20 98/56 92 Intake & Output 01/27 1600 01/27 0800 01/27 0000 Intake Total 240 240 Output Total Balance 240 240 Intake, Oral 240 240 Number 1 Bowel Movements Exam: General: Patient awake alert oriented without any distress CVS: S1 plus S2 without any murmur or gallops Chest: Few scattered crepitation without any wheeze. There is no respiratory distress. Abdomen: Soft nontender, bowel sound present, no guarding or rebound REGULATORY LEAD: Awake alert oriented without any focal neuro deficit and follows command appropriately Extremities: No edema; no clubbing or cyanosis noted No new lab work available today. Assessment * Acute diverticulitis with abscess * History of A. fib * History of lower GI bleed * Chronic anemia * History of CHF * History of non-Hodgkin lymphoma Plan * Continue to monitor closely * Continued follow-up antibiotics * Await disposition plan
[2017-01-27 14:14] VITALS: BP 100/50
[2017-01-27 16:02] VITALS: BP 112/56
[2017-01-27 22:24] VITALS: BP 110/60
[2017-01-28] VITALS (11 sets, daily range): BP systolic 86–148; BP diastolic 46–70
--- NOTE | 2017-01-28 07:15 | Event Note ---
Event Note Event Note: Early in AM. pt complained of chest pain; ekg showed a.fib, and troponin negative. Vitals were largely stable other than tachypnea. Gave her nitro; improved chest pain but BP dropped to 84/64. Pt does not have IV access so put her in trendelenberg and Bp came up to systolic 100. Pt doesn't compain of chest pain any longer. Note that thirty minutes prior to CP she complained of nausea and got comapzine.
--- NOTE | 2017-01-28 10:09 | RADIOLOGY REPORT ---
EXAMINATION: XR PORTABLE CHEST CLINICAL INFORMATION: Pulmonary edema, chest discomfort COMPARISON: 01/15/2017 TECHNIQUE: Portable AP 9:41 AM view of the chest was obtained. FINDINGS: Right-sided Port-A-Cath remains in place with its tip overlying the atriocaval junction. No pneumothorax. Heart size remains moderately enlarged. Interstitial prominence is slightly improved. Less peribronchial edema is measurable. Trace pleural effusions appear similar. No major zones of airspace disease. IMPRESSION: Persistent but slightly improved interstitial pulmonary edema.
--- NOTE | 2017-01-28 10:54 | PN- Cardiology ---
Subjective Subjective: * Patient is a little confused today. She has some mild shortness of breath. She also reported transient chest discomfort and was given a SL NTG that dropped her SBP into the mid 80's. Objective Vital Signs and I&Os Vital Signs Date Time Temp Pulse Resp B/P Pulse O2 O2 Flow FiO2 Ox Delivery Rate 01/28 0953 97 100/50 01/28 0800 Nasal 2.0L Cannula 01/28 0600 100/50 01/28 0530 97.7 97 20 86/46 95 Nasal 2.0L Cannula 01/28 0415 97.7 83 30 108/52 97 Nasal 2.0L Cannula 01/27 2331 93 Nasal 2.0L Cannula 01/27 2224 97.6 100 20 110/60 93 01/27 2214 100 110/60 01/27 1602 112/56 01/27 1600 95 Nasal 2.0L Cannula 01/27 1414 97.9 81 20 100/50 98 Nasal 2.0L Cannula Intake & Output 01/28 1600 01/28 0800 01/28 0000 01/27 1600 01/27 0800 01/27 0000 Intake Total 120 240 700 240 240 Output Total Balance 120 240 700 240 240 Intake, Oral 120 240 700 240 240 Number 3 1 Bowel Movements Physical Exam: General: WD/ WN female in NAD; alert and oriented x 3 Neck: no JVD, no carotid bruit Heart: irregularly irregular, no murmur Lungs: crackles throughout Extremties: no edema Assessment/Plan Assessment/Plan * Shayna continues to have some crackles in her lungs although her pedal edema is improved on her current dose of lasix. Continue Lasix at 40mg PO daily while monitoring her blood pressure. Continue her current dose of Metoprolol and Cardizem. Continue telemetry? Not applicable
--- NOTE | 2017-01-28 12:12 | PN- Att Addend ---
Attending Addendum Attending Brief Note Patient seen and examined. Plan of care discussed with the medical team and the patient. Available lab work and radiology test reports were reviewed. She is rapid response early this morning for chest pain. EKGs did not show any changes. She also appears more short of breath compared to yesterday. She has mild cough. She continues to have mild left lower quadrant abdominal pain. Vital Signs Date Time Temp Pulse Resp B/P Pulse O2 O2 Flow FiO2 Ox Delivery Rate 01/28 1205 102/50 01/28 1154 102/50 01/28 1110 99 106/54 96 Nasal 2.0L Cannula 01/28 0953 97 100/50 01/28 0800 Nasal 2.0L Cannula 01/28 0600 100/50 01/28 0530 97.7 97 20 86/46 95 Nasal 2.0L Cannula 01/28 0415 97.7 83 30 108/52 97 Nasal 2.0L Cannula 01/27 2331 93 Nasal 2.0L Cannula 01/27 2224 97.6 100 20 110/60 93 01/27 2214 100 110/60 01/27 1602 112/56 01/27 1600 95 Nasal 2.0L Cannula 01/27 1414 97.9 81 20 100/50 98 Nasal 2.0L Cannula Intake & Output 01/28 1600 01/28 0800 01/28 0000 Intake Total 120 240 Output Total Balance 120 240 Intake, Oral 120 240 Exam: General: Patient awake alert oriented without any distress CVS: S1 plus S2 without any murmur or gallops Chest: Bibasilar crepitation without any wheeze. There is no respiratory distress. Abdomen: Soft nontender, bowel sound present, no guarding or rebound CARD HAND: Awake alert oriented without any focal neuro deficit and follows command appropriately Extremities: No edema; no clubbing or cyanosis noted Laboratory Tests 01/28 0520 Chemistry Troponin I (< 0.11 ng/ml) < 0.01 EKG shows A. fib and essentially unchanged from prior EKG. Chest x-ray- Persistent but slightly improved interstitial pulmonary edema. Assessment * Acute diverticulitis with abscess * History of A. fib * History of lower GI bleed * Chronic anemia * History of CHF and possible mild worsening of the chest x-ray is stable * Hypoxia likely secondary to CHF * History of non-Hodgkin lymphoma * Hypotension Plan * Can reduce Lopressor 25 twice a day given her low blood pressure * Continue Cardizem pressures of 100 * I will give 1 dose of IV Lasix 20 mg and then continue oral Lasix pressure remains above 100 * Await disposition plan
--- NOTE | 2017-01-28 12:46 | PN- Housestaff ---
Subjective Follow-up For: 1. Acute diverticulitis with evidence of intra-abdominal abscess 2. Proximal atrial fibrillation, with rapid ventricular response initially but now well controlled 3. History of pernicious anemia 4. History of of HFPeF 5. She has non-Hodgkin's B lymphoma currently on chemotherapy Treated with 6 cycles of Rituxan, Cytoxan, ACCOUNTS SUPERVISOR 16, vincristine and prednisone. Last chemotherapy 2 weeks ago with prednisone for 4 days post chemotherapy. Complaints: anxious and worried Subjective: Uncomfortable, anxious and teary and despondent. Worried that she is not going to get better and just wants it to end. However she denies SI. Review of Systems Constitutional: Reports: see HPI. Objective Last 24 Hrs of Vital Signs/I&O Vital Signs Date Time Temp Pulse Resp B/P Pulse O2 O2 Flow FiO2 Ox Delivery Rate 01/28 1205 102/50 01/28 1154 102/01/28 1110 99 106/54 96 Nasal 2.0L Cannula 01/28 0953 97 100/50 01/28 0800 Nasal 2.0L Cannula 01/28 0600 100/50 01/28 0530 97.7 97 20 86/46 95 Nasal 2.0L Cannula 01/28 0415 97.7 83 30 108/52 97 Nasal 2.0L Cannula 01/27 2331 93 Nasal 2.0L Cannula 01/27 2224 97.6 100 20 110/60 93 01/27 2214 100 110/60 01/27 1602 112/56 01/27 1600 95 Nasal 2.0L Cannula 01/27 1414 97.9 81 20 100/50 98 Nasal 2.0L Cannula Intake & Output 01/28 1600 01/28 0800 01/28 0000 Intake Total 120 240 Output Total Balance 120 240 Intake, Oral 120 240 Physical Exam General Appearance: Alert, Oriented X3, Cooperative Skin: No Significant Lesion Cardiovascular: irregularly irregular HR Lungs: Clear to Auscultation, Normal Air Movement Abdomen: No Tenderness Extremities: 2+ pedal edema Current Medications: Current Medications Sig/Timi Start time Last Medication Dose Route Stop Time Status Admin Dicyclomine HCl 20 MG 4 TIMES/DAY 01/23 1745 AC 01/28 PO 1220 Diltiazem HCl 30 MG BID 01/19 2200 AC 01/28 PO 0953 Furosemide 20 MG ONCE ONE 01/28 1115 DC IV 01/28 1116 Furosemide 40 MG DAILY 01/18 1000 AC 01/26 PO 0925 Guaifenesin/ 10 ML Q4H PRN 01/15 0200 AC 01/27 Dextromethorphan PO 2216 Hydromorphone HCl 2 MG BID PRN 01/24 1515 AC 01/28 PO 1329 Levothyroxine Sodium 0.125 MG DAILY AC 01/15 0700 AC 01/28 PO 0538 Lorazepam 0.5 MG ONE ONE 01/28 1415 DC 01/28 PO 01/28 1416 1419 Magnesium Chloride 64 MG BID 01/23 1030 AC 01/28 PO 0953 Melatonin 3 MG AT BEDTIME 01/15 2200 AC 01/27 PO 2030 Metoprolol Tartrate 25 MG BID 01/28 2200 AC PO Metoprolol Tartrate 50 MG BID 01/15 0500 DC 01/27 PO 2214 Morphine Sulfate 2 MG Q4P PRN 01/15 0200 DC 01/21 IV 1617 Nitroglycerin 0.4 MG ONCE ONE 01/28 0530 DC 01/28 SL 01/28 0531 0537 Omeprazole 40 MG DAILY AC 01/21 0700 AC 01/28 PO 0538 Potassium Chloride 20 MEQ DAILY 01/23 1009 AC 01/28 PO 0953 Prochlorperazine 10 MG Q6 PRN 01/15 0200 AC 01/28 PO 0339 Rivaroxaban 15 MG AT BEDTIME 01/20 2200 AC 01/27 PO 2030 Tiotropium [place] 1 PUF DAILY 01/15 1000 AC 01/28 INH 0953 Last 24 Hrs of Lab/Bill Results Last 24 Hrs of Labs/Mics: Laboratory Tests 01/28/17 0520: Troponin I < 0.01 Lines/Diet/Fluids Lines: none Assessment/Plan Assessment: Patient is a pleasant 86 year old women from [facility], with h/o Afib on xarelto, NH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 Problem list 1. Acute diverticulitis with evidence of intra-abdominal abscess 2. Proximal atrial fibrillation, with rapid ventricular response initially but now well controlled 3. History of pernicious anemia 4. History of of HFPeF 5. She has non-Hodgkin's B lymphoma currently on chemotherapy Treated with 6 cycles of Rituxan, Cytoxan, ACCOUNTS SUPERVISOR 16, vincristine and prednisone. Last chemotherapy 2 weeks ago with prednisone for 4 days post chemotherapy. Plan Possible diverticulities with questionable abcess v/s Non Hodgkin lymphoma infiltration of bowel. She will get a PET scan as an outpatient for further evaluation of her lympoma spread. Plan is to discontinue the Xarelto if H&H drops significantly/patient starts bleeding. Anxiety/Depression Teary and anxious-says she wants it all to end and hope she sleeps and does not wake up. She however denies active SI Complained of left sided chest pressure and SOB earlier this morning but trop and EKG neg. Possibility of new onset depression due to news of cancer spreading to new areas Consider psych eval for depression/anxiety For atrial fibrilation Patient is on rate continue with rate control with Cardizem and metoprolol and Xarelto for anticoagulation. She will be maintined on anticoagulation, as her risk of stroke outweight her risk of bleeding from xarelto. She needs to be closely monitored. Heart failure with preserved EF She will be continued on Lasix 40 mg Was given nitro this am with a resultant drop in BP; monitor closely Place an IV line to enable IV meds to be given if neccessary -Dvt to prophylaxis,patient is on xarelto. DNR/DNI Problem List: 1. ATRIAL FIBRILATION Pain Ratin Pain Location: n/a Pain Goal: n/a Pain Plan: n/a Tomorrow's Labs & Rationales: none Consulting Request: Consulting Specialty: Infectious Disease
--- NOTE | 2017-01-28 14:17 | Event Note ---
Event Note Event Note: Nurse paged me at 2 PM reporting that patient is complaining of chest pain. Upon examination, patient was very teary and reported left side chest pain that' s not radiating to anywhere and associated with shortness of breath. Patient had similar symptoms earlier this morning and had work up that were negative. Patient vitals are stable except for heart rate of 114 Resident made aware. We will repeat the troponin and EKG again, patient was given 0.5 mg Ativan one time for depression and anxiety. Consider psych evaluation tomorrow morning. We will continue to follow.
[2017-01-29 06:45] VITALS: BP 108/70
--- NOTE | 2017-01-29 07:35 | PN- Housestaff ---
PAULA MAURER 01/29/17 0735: Subjective Follow-up For: 1. Acute diverticulitis with evidence of intra-abdominal abscess 2. Proximal atrial fibrillation, with rapid ventricular response initially but now well controlled 3. History of pernicious anemia 4. History of of HFPeF 5. She has non-Hodgkin's B lymphoma currently on chemotherapy Subjective: Patient is seen and examined. She feels well today however over the weekend she got very anxious and had an episode of difficulty breathing. She was given 0.5 mg of one-time Ativan. Over the weekend she was also evaluated by state on site visit for her previous suicidal comments. He suggested hospice care to her and patient is receptive to the idea. Patient would have hospice nurse evaluation today. Patient has been afebrile and her blood pressure has been stable and will get her labs tomorrow if she is not transitioned to hospice Review of Systems Constitutional: Reports: see HPI. Objective Last 24 Hrs of Vital Signs/I&O Vital Signs Date Time Temp Pulse Resp B/P Pulse O2 O2 Flow FiO2 Ox Delivery Rate 01/29 1251 95 Nasal 4.0L Cannula 01/29 0911 91 108/70 01/29 0911 91 108/70 01/29 0800 Nasal 4.0L Cannula 01/29 0645 97.4 91 20 108/70 92 Nasal Cannula 01/29 0000 Nasal 4.0L Cannula 01/28 2127 90 110/70 01/28 2126 90 110/70 01/28 2108 98.2 70 20 130/70 97 01/28 1900 20 110/54 96 Nasal 4.0L Cannula 01/28 1720 Nasal 4.0L Cannula 01/28 1715 106 22 118/58 95 Nasal 4.0L Cannula 01/28 1600 95 Nasal 4.0L Cannula 01/28 1600 104 24 134/68 96 Nasal 5.0L Cannula 01/28 1530 97.8 110 30 148/70 81 Nasal 2.0L Cannula 01/28 1400 98.9 105 30 110/58 92 Nasal 2.0L Cannula Intake & Output 01/29 1600 01/29 0800 01/29 0000 Intake Total 240 120 Output Total Balance 240 120 Intake, Oral 240 120 Physical Exam General Appearance: Alert, Oriented X3, Cooperative, No Acute Distress Skin: No Rashes HEENT: Atraumatic Neck: Supple Cardiovascular: Regular Rate, Normal S1, Normal S2 Lungs: Normal Air Movement Abdomen: Soft, No Tenderness, No Hepatospenomegaly Neurological: Normal Speech Extremities: No Edema, Normal Pulses Current Medications: Current Medications Sig/Timi Start time Last Medication Dose Route Stop Time Status Admin Albuterol Sulfate 3 ML Q4-PRN PRN 01/28 1730 AC INH Dicyclomine HCl 20 MG 4 TIMES/DAY 01/23 1745 AC 01/29 PO 1256 Diltiazem HCl 30 MG BID 01/19 2200 AC 01/29 PO 0911 Furosemide 20 MG ONCE ONE 01/28 1545 DC 01/28 IV 01/28 1546 1547 Furosemide 40 MG .STK-MED ONE 01/28 1540 DC IV 01/28 1541 Furosemide 40 MG DAILY 01/18 1000 AC 01/29 PO 0911 Guaifenesin/ 10 ML Q4H PRN 01/15 0200 AC 01/27 Dextromethorphan PO 2216 Hydromorphone HCl 2 MG BID PRN 01/24 1515 AC 01/28 PO 2129 Levothyroxine Sodium 0.125 MG DAILY AC 01/15 0700 AC 01/29 PO 0555 Lorazepam 0.5 MG ONE ONE 01/28 1415 DC 01/28 PO 01/28 1416 1419 Magnesium Chloride 64 MG BID 01/23 1030 AC 01/29 PO 0911 Melatonin 3 MG AT BEDTIME 01/15 2200 AC 01/28 PO 2129 Metoprolol Tartrate 25 MG BID 01/28 2200 AC 01/29 PO 0911 Metoprolol Tartrate 50 MG BID 01/15 0500 DC 01/27 PO 2214 Omeprazole 40 MG DAILY AC 01/21 0700 AC 01/29 PO 0555 Potassium Chloride 20 MEQ DAILY 01/23 1009 AC 01/29 PO 0911 Prochlorperazine 10 MG Q6 PRN 01/15 0200 AC 01/28 PO 0339 Rivaroxaban 15 MG AT BEDTIME 01/20 2200 AC 01/28 PO 2127 Tiotropium [place] 1 PUF DAILY 01/15 1000 AC 01/29 INH 0911 Last 24 Hrs of Lab/Bill Results Last 24 Hrs of Labs/Mics: Laboratory Tests 01/28/17 1534: Troponin I < 0.01 Assessment/Plan Assessment: Patient is a pleasant 86 year old women from [facility], with h/o Afib on xarelto, NH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 Problem list 1. Acute diverticulitis with evidence of intra-abdominal abscess 2. Proximal atrial fibrillation, with rapid ventricular response initially but now well controlled 3. History of pernicious anemia 4. History of of HFPeF 5. She has non-Hodgkin's B lymphoma currently on chemotherapy Treated with 6 cycles of Rituxan, Cytoxan, PIT RECORDER 16, vincristine and prednisone. Last chemotherapy 2 weeks ago with prednisone for 4 days post chemotherapy. Plan Possible diverticulities with questionable abcess v/s Non Hodgkin lymphoma infiltration of bowel. She will get a PET scan as an outpatient for further evaluation of her lympoma spread. Plan is to discontinue the Xarelto if H&H drops significantly/patient starts bleeding. Anxiety/Depression Patient was very anxious over the weekend. She was evaluated by on-site state visit explored regarding her suicidal comments. Patient express this morning that she would like to speak with the hospice nurse , shoe parts caser aware Complained of left sided chest pressure and SOB earlier this morning but trop and EKG neg. Possibility of new onset depression due to news of cancer spreading to new areas Psych will follow her today her depression For atrial fibrilation Patient is on rate continue with rate control with Cardizem and metoprolol and Xarelto for anticoagulation. She will be maintined on anticoagulation, as her risk of stroke outweight her risk of bleeding from xarelto. She needs to be closely monitored. Heart failure with preserved EF She will be continued on Lasix 40 mg Was given nitro this am with a resultant drop in BP; monitor closely Place an IV line to enable IV meds to be given if neccessary -Dvt to prophylaxis,patient is on xarelto. DNR/DNI Problem List: 1. Respiratory distress Pain Ratin Pain Location: n/a Pain Goal: Pain 4 or less Pain Plan: Tylenol when necessary for pain Tomorrow's Labs & Rationales: cbc and bep if not hospice Consulting Request: Consulting Specialty: Infectious Disease DEE DEE AGUILAR MDAnna 01/29/17 1551: Attending MD Review Statement Attending Statement Attending MD Statement: examined this patient, discuss w/resident/PA/ENGINE REPAIRER, agreed w/resident/PA/ENGINE REPAIRER, reviewed EMR data (avail), discussed with nursing, discussed with case mgmt, amended to note Attending Assessment/Plan: Patient seen and examined. Resting comfortably and not in any distress. She is actually in very good spirits. I had an extensive conversation with her and family at the bedside. She is able to clearly express her desire to get stronger and eventually get discharged home. She however understands the poor prognosis of her overall health and is willing to transition into hospice care in the future. She reports that her pain is controlled with the current regimen. Recommendations: -Patient continues to do well after completing 10 day course of antibiotic therapy. Continue to monitor off antibiotics. Collection noted on abdominal imaging was not drained as no fluid collection was noted during attempt for CT- guided aspiration. -Continue current pain regimen. Bowel regimen to prevent constipation -Patient and family do not wish for any aggressive measures. They're strongly considering converting to hospice care sometime in the future. Currently patient desires to get stronger and possibly discharged home eventually. -[facility]charge to [facility] facility once a bed becomes available.
[2017-01-29 14:43] VITALS: BP 100/70
--- NOTE | 2017-01-29 18:18 | PN- Psychiatry ---
See Addendum Assessment/Plan Impression: According to case management, the patient will likely go to an ECF, [facility], and possibly from there to hospice. The patient denies any feelings of anxiety. She reports mild depression related to being in the hospital, and feels this will resolve when she is discharged. She reports adequate appetite and that she is sleeping well. We do not have an indication to prescribe medication for mood, at this time. There was a report by housestaff of an anxiety event, but the patient and nursing are unable to verify this. Please call if more information on this becomes available. Suggestion: 1. Please include in the discharge instructions, and also on the W-10, a request to contact [facility] to make an intake appointment when the patient's discharge date from the nursing facility is known, if she reports symptoms of anxiety or depression, or other psychiatric disorder. [address] [place] [address] [phone]. 2. Continue melatonin 3 mg PO at bedtime for insomnia. 3. No other psychotropic interventions indicated at this time. We will continue to follow along with you. Richar Gomez APRN, Pager [phone] Subjective Subjective: A+OX4. Denies AVH; presents no tonia delusions. She answers most questions directly, but then changes topics. Some answers tangential. Denies any symptoms of anxiety, and feels that her mild depression will resolve when she leaves the hospital. She reports that she will be going to [facility], but that she is not ready for hospice yet. She is not afraid to , she states, but expresses no suicidal ideation. Thought processes are logical and linear. Insight and judgment intact. Objective Last 24 Hrs of Vital Signs/I&O Vital Signs Date Time Temp Pulse Resp B/P Pulse O2 O2 Flow FiO2 Ox Delivery Rate 01/29 1443 98.1 60 20 100/70 95 Room Air 01/29 1251 95 Nasal 4.0L Cannula 01/29 0911 91 108/70 01/29 0911 91 108/70 01/29 0800 Nasal 4.0L Cannula 01/29 0645 97.4 91 20 108/70 92 Nasal Cannula 01/29 0000 Nasal 4.0L Cannula 01/28 2127 90 110/70 01/28 2126 90 110/70 03/19 2108 98.2 70 20 130/70 97 01/28 1900 20 110/54 96 Nasal 4.0L Cannula Intake & Output 01/29 1600 01/29 0800 01/29 0000 Intake Total 600 240 120 Output Total Balance 600 240 120 Intake, Oral 600 240 120 Number 1 Bowel Movements Current Medications: Current Medications Sig/Timi Start time Last Medication Dose Route Stop Time Status Admin Albuterol Sulfate 3 ML Q4-PRN PRN 01/28 1730 AC INH Dicyclomine HCl 20 MG 4 TIMES/DAY 01/23 1745 AC 01/29 PO 1734 Diltiazem HCl 30 MG BID 01/19 2200 AC 01/29 PO 0911 Furosemide 40 MG DAILY 01/18 1000 AC 01/29 PO 0911 Guaifenesin/ 10 ML Q4H PRN 01/15 0200 AC 01/27 Dextromethorphan PO 221 Hydromorphone HCl 2 MG BID PRN 01/24 1515 AC 01/28 PO 2129 Levothyroxine Sodium 0.125 MG DAILY AC 01/15 0700 AC 01/29 PO 0555 Magnesium Chloride 64 MG BID 01/23 1030 AC 01/29 PO 0911 Melatonin 3 MG AT BEDTIME 01/15 2200 AC 01/28 PO 2129 Metoprolol Tartrate 25 MG BID 01/28 2200 AC 01/29 PO 0911 Omeprazole 40 MG DAILY AC 01/21 0700 AC 01/29 PO 0555 Potassium Chloride 20 MEQ DAILY 01/23 1009 AC 01/29 PO 0911 Prochlorperazine 10 MG Q6 PRN 01/15 0200 AC 01/28 PO 0339 Rivaroxaban 15 MG AT BEDTIME 01/20 2200 AC 01/28 PO 2127 Tiotropium [place] 1 PUF DAILY 01/15 1000 AC 01/29 INH 0911
[2017-01-29 22:29] VITALS: BP 104/60
[2017-01-30 06:00] VITALS: BP 110/74
[2017-01-30 07:48] LABS: ABSOLUTE BASOPHIL COUNT 0 /CUMM (0.0-0.2); ABSOLUTE EOSINOPHIL COUNT 0.4 /CUMM (0.0-0.7); ABSOLUTE GRANULOCYTE CT 4.3 /CUMM (1.4-6.5); ABSOLUTE LYMPH COUNT 1.6 /CUMM (1.2-3.4); ABSOLUTE MONOCYTE COUNT 1.1 /CUMM (0.10-0.60); BASOPHIL % 0.6 % (0.0-2.0); EOSINOPHIL % 5.8 % (0-5); GRANULOCYTE % 57.8 % (42.2-75.2); HEMATOCRIT 31.6 % (37-47); MEAN CORPUSCULAR HGB 28.2 PG (27.0-31.0); MEAN CORPUSCULAR HGB CONC 31.9 G/DL (33.0-37.0); MEAN CORPUSCULAR VOLUME 88.4 FL (81.0-99.0); MEAN PLATELET VOLUME 8.8 FL (7.4-10.4); PLATELET COUNT 283 /CUMM (130-400); RED BLOOD CELL CT 3.58 /CUMM (4.20-5.40); WHITE BLOOD CELL COUNT 7.5 /CUMM (4.8-10.8)
--- NOTE | 2017-01-30 08:12 | PN- Housestaff ---
PAULA MAURER 01/30/17 0812: Subjective Follow-up For: 1. Acute diverticulitis with evidence of intra-abdominal abscess 2. Proximal atrial fibrillation, with rapid ventricular response initially but now well controlled 3. History of pernicious anemia 4. History of of HFPeF 5. She has non-Hodgkin's B lymphoma currently on chemotherapy ( on Hold as inpatient) Subjective: Patient looks comfortable this morning. She reports that she feels a little wobbly and weak. Patient was evaluated by hospice nurse yesterday. Patient has decided that she wants to be discharged to rehabilitation and from there if she truly then she may be converted to hospice care. Patient was evaluated by psych service yesterday and they recommended outpatient follow-up should patient develop symptoms of anxiety or depression. Her CBC looks stable today, BEP pending. Her vital signs room in stable she is saturating 95% on room air. Review of Systems Constitutional: Reports: see HPI. Objective Last 24 Hrs of Vital Signs/I&O Vital Signs Date Time Temp Pulse Resp B/P Pulse O2 O2 Flow FiO2 Ox Delivery Rate 01/30 0600 97.6 90 20 110/74 95 Room Air 01/30 0000 Nasal 3.0L Cannula 01/29 2229 97.7 96 20 104/60 98 Nasal 3.0L Cannula 01/29 2143 100/64 01/29 2143 100/64 01/29 2125 99 Nasal 4.0L Cannula 01/29 1600 Nasal 4.0L Cannula 01/29 1443 98.1 60 20 100/70 95 Room Air 01/29 1251 95 Nasal 4.0L Cannula 01/29 0911 91 108/70 01/29 0911 91 108/70 Intake & Output 01/30 1600 01/30 0800 01/30 0000 Intake Total 240 400 Output Total Balance 240 400 Intake, Oral 240 400 Physical Exam General Appearance: Alert, Oriented X3, Cooperative, No Acute Distress Skin: No Rashes HEENT: Atraumatic Neck: Supple Cardiovascular: Normal S1, Normal S2 Lungs: Normal Air Movement Abdomen: Normal Bowel Sounds, Soft, No Tenderness Neurological: Normal Speech, Normal Tone Extremities: No Edema, Normal Pulses Current Medications: Current Medications Sig/Timi Start time Last Medication Dose Route Stop Time Status Admin Albuterol Sulfate 3 ML Q4-PRN PRN 01/28 1730 AC INH Dicyclomine HCl 20 MG 4 TIMES/DAY 01/23 1745 AC 01/30 PO 0907 Diltiazem HCl 30 MG BID 01/19 2200 AC 01/30 PO 0908 Furosemide 40 MG DAILY 01/18 1000 AC 01/30 PO 0907 Guaifenesin/ 10 ML Q4H PRN 01/15 0200 AC 01/27 Dextromethorphan PO 2216 Hydromorphone HCl 2 MG BID PRN 01/24 1515 AC 01/28 PO 2129 Levothyroxine Sodium 0.125 MG DAILY AC 01/15 0700 AC 01/30 PO 0710 Magnesium Chloride 64 MG BID 01/23 1030 AC 01/29 PO 2143 Melatonin 3 MG AT BEDTIME 01/15 2200 AC 01/29 PO 214 Metoprolol Tartrate 25 MG BID 01/28 2200 AC 01/30 PO 0909 Omeprazole 40 MG DAILY AC 01/21 0700 AC 01/30 PO 0640 Potassium Chloride 20 MEQ DAILY 01/23 1009 AC 01/29 PO 0911 Prochlorperazine 10 MG Q6 PRN 01/15 0200 AC 01/28 PO 0339 Rivaroxaban 15 MG AT BEDTIME 01/20 2200 AC 01/29 PO 2144 Tiotropium [place] 1 PUF DAILY 01/15 1000 AC 01/30 INH 0909 Last 24 Hrs of Lab/Bill Results Last 24 Hrs of Labs/Mics: Laboratory Tests 01/30/17 0649: Anion Gap 9, Estimated GFR 52 L, BUN/Creatinine Ratio 13.0, CBC w Diff NO MAN DIFF REQ, RBC 3.58 L, MCV 88.4, MCH 28.2, RDW 22.0 H, MPV 8.8, Gran % 57.8, Lymphocytes % 20.7, Monocytes % 15.1 H, Eosinophils % 5.8 H, Basophils % 0.6, Absolute Granulocytes 4.3, Absolute Lymphocytes 1.6, Absolute Monocytes 1.1 H, Absolute Eosinophils 0.4, Absolute Basophils 0, PUBS MCHC 31.9 L Assessment/Plan Assessment: Patient is a pleasant 86 year old women from senior housing, with h/o Afib on xarelto, NH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 Problem list 1. Acute diverticulitis with evidence of intra-abdominal abscess 2. Proximal atrial fibrillation, with rapid ventricular response initially but now well controlled 3. History of pernicious anemia 4. History of of HFPeF 5. She has non-Hodgkin's B lymphoma currently on chemotherapy. (on Hold as inpatient) Treated with 6 cycles of Rituxan, Cytoxan, INFORMATICS SPEC 16, vincristine and prednisone. Last chemotherapy 2 weeks ago with prednisone for 4 days post chemotherapy. Plan Possible diverticulities with questionable abcess v/s Non Hodgkin lymphoma infiltration of bowel. She will get a PET scan as an outpatient for further evaluation of her lympoma spread. Plan is to discontinue the Xarelto if H&H drops significantly/patient starts bleeding. Anxiety/Depression Patient was very anxious over the weekend. She was evaluated by on-site state visit explored regarding her suicidal comments. Patient had a meeting with hospice nurse on 01/29/17, patient decides to go to rehabilitation for now and if her condition worsens she is aminable to be transition to hospice at that time. Patient was evaluated by psych on 01/29/17 and they recommend an outpatient follow up if the patient has signs or symptoms of anxiety/depression Possibility of new onset depression due to news of cancer spreading to new areas For atrial fibrilation Patient is on rate continue with rate control with Cardizem and metoprolol and Xarelto for anticoagulation. She will be maintined on anticoagulation, as her risk of stroke outweight her risk of bleeding from xarelto. She needs to be closely monitored. Heart failure with preserved EF She will be continued on Lasix 40 mg Was given nitro this am with a resultant drop in BP; monitor closely Place an IV line to enable IV meds to be given if neccessary -Dvt to prophylaxis,patient is on xarelto. DNR/DNI Problem List: 1. ATRIAL FIBRILATION Pain Ratin Pain Location: none Pain Goal: Pain 4 or less Pain Plan: tylenol prn for pain Tomorrow's Labs & Rationales: none Consulting Request: Consulting Specialty: Infectious Disease ELDA AGUILAR MD 01/30/17 1504: Attending Review Statement Attending Statement Attending MD Statement: examined this patient, discuss w/resident/PA/MANAGER MONEY, agreed w/resident/PA/MANAGER MONEY, reviewed EMR data (avail), discussed with nursing, discussed with case mgmt, amended to note Attending Assessment/Plan: Patient seen and examined. Resting comfortably and not in any acute distress. No issues overnight. Pain is controlled on current regimen. She wishes to be discharged to the [facility] facility for short-term rehabilitation and return to [facility] for hospice therapy should the need arise in the future. She reports poor appetite but is able to take small portions. She is scheduled to be discharged to the fdc facility once a bed becomes available.
--- NOTE | 2017-01-30 14:02 | PN- Cardiology ---
Subjective Subjective: * Feeling much improved. No shortness of breath. No chest discomfort. * Hemodynamically stable * Normal creatinine Objective Vital Signs and I&Os Vital Signs Date Time Temp Pulse Resp B/P Pulse O2 O2 Flow FiO2 Ox Delivery Rate 01/30 0908 87 100/58 01/30 0904 97 Room Air 01/30 0800 96 Room Air 01/30 0600 97.6 90 20 110/74 95 Room Air 01/30 0000 Nasal 3.0L Cannula 01/29 2229 97.7 96 20 104/60 98 Nasal 3.0L Cannula 01/29 2143 100/64 01/29 2143 100/64 01/29 2125 99 Nasal 4.0L Cannula 01/29 1600 Nasal 4.0L Cannula 01/29 1443 98.1 60 20 100/70 95 Room Air Intake & Output 01/30 1600 01/30 0800 01/30 0000 01/29 1600 01/29 0800 01/29 0000 Intake Total 240 400 600 240 120 Output Total Balance 240 400 600 240 120 Intake, Oral 240 400 600 240 120 Number 1 Bowel Movements Physical Exam: General: WD/ WN female in NAD; alert and oriented x 3 Neck: no JVD, no carotid bruit Heart: irregularly irregular, no murmur Lungs: crackles at bases bilaterally Extremties: no edema Assessment/Plan Assessment/Plan * Shayna continues to have some scant crackles at her lung bases without shortness of breath. Continue Lasix at 40mg PO daily. Continue her current dose of Metoprolol and Cardizem. * Follow up in the office in two weeks. Continue telemetry? No
[2017-01-30 14:41] VITALS: BP 112/68
[2017-01-30 16:05] VITALS: BP 112/68
[2017-01-30] MEDS ORDERED: BENTYL10 M1 PO (16:18)
[2017-01-30] MEDS ORDERED: METOPROLOL TART25 M1 PO (16:19)
[2017-01-30] MEDS ORDERED: CARDIZEM30 M1 PO (16:19)
== END 2017-01-30 16:45 | DRG 392 ==
LOC: CANRESERV → ENRESERVDT → ENRESERVTM → ERH 16:36 → 1NO 22:25 → DELPENDDIS 22:25 → ERHI 22:25 → 2NA 22:25 → ENPENDDIS 22:25 → EDBEDREQ 01-15 02:01 → 1NO 01-15 02:18 → 2NA 01-25 22:15
PROVIDERS: Internal Medicine; Internal Medicine Nephrology; Physician Assistant; Student in an Organized Health Care Education/Training Program; ADMIT Student in an Organized Health Care Education/Training Program
PROC: 30233N1 Transfusion of Nonautologous Red Blood Cells into Peripheral Vein, Percutaneous Approach (ICD-10-PCS; principal; 2017-01-17)
DX: K57.20 Diverticulitis of large intestine with perforation and abscess without bleeding (principal); I47.2 Ventricular tachycardia; C79.51 Secondary malignant neoplasm of bone; C85.10 Unspecified B-cell lymphoma, unspecified site; I50.32 Chronic diastolic (congestive) heart failure; R45.851 Suicidal ideations; I48.2 Chronic atrial fibrillation; D51.0 Vitamin B12 deficiency anemia due to intrinsic factor deficiency; E87.6 Hypokalemia; D64.81 Anemia due to antineoplastic chemotherapy; I12.9 Hypertensive chronic kidney disease with stage 1 through stage 4 chronic kidney disease, or unspecified chronic kidney disease; N18.3 Chronic kidney disease, stage 3 (moderate)
CPT/HCPCS: 1NP; 2NAP; 87075; ERO; 36415; 73502-RT; 74177; 80307; 81003; 82436; 86920; 87040; 93005; 93010; 96361; 96365; 96375; 97110-GO; 97116-GO; 97161-GP; 99232; G0480; J0696; J1170; J1642; J1940; J3490; J7040; P9016

== ENCOUNTER 2017-02-07 09:49 | Emergency (ER) | payer OTHER, MEDICARE ==
[~2017-02-07] VITALS: Ht 157.5 cm; Wt 62.6 kg
[~2017-02-07 09:49] MED LIST changes: +BENTYL10 M1 PO; +CARDIZEM30 M1 PO; +CIPRO500 M1 PO; +FLAGYL250 M1 PO; +HYDROMORPHONE HC2 M1 PO; +KLOR-CON M2020 ME1 PO; +LASIX40 M1 PO; +METOPROLOL TART25 M1 PO; +PROCHLORPERAZIN10 MG PO; +SYNTHROID125 MCG PO; +TUSSIN DM COUG120 ML PO; +ZOFRAN ODT8 M1 PO
--- NOTE | 2017-02-07 09:52 | ED DYSPNEA/ASTHMA COMPLAINT ---
History of Present Illness General Chief Complaint: General Adult Stated Complaint: BIBA LUNG PAIN, ABDOMINAL PAIN Source: patient Exam Limitations: no limitations Allergies Coded Allergies: Penicillins (RASH 12/16/16) acetaminophen (BURNING FEELING IN STOMACH 12/16/16) animal dander (PER 01/14/17) latex (SORES 12/16/16) mold (UNKNOWN 12/16/16) Sulfa (Sulfonamide Antibiotics) (GI 12/16/16) aspirin (MILD GI 12/16/16) diazepam (GI 12/16/16) oxycodone (GI, MIGRAINE 12/16/16) propoxyphene (GI 12/16/16) Uncoded Allergies: COLOGNE (PER PT UPSETS HER WITH THE SMELL 10/17/16) HAIR SPRAY (PER PT UPSETS HER WITH THE SMELL 10/17/16) SMOKE (PER PT CANT STAND SMELLS IT UPSETS HER 10/17/16) TOBACCO (PER 01/14/17) Reconcile Medications Ascorbic Acid (Vitamin C) 500 MG TABLET 1 TAB PO TID SUPPLEMENT (Reported) Biotin 5 MG CAPSULE 1 TAB PO DAILY SUPPLEMENT (Reported) Calcium Carbonate/Vitamin D3 (Calcium 600 + Vit D Tablet) (Unknown Strength) TABLET (Unknown Dose) PO BID SUPPLEMENT (Reported) Cholecalciferol (Vitamin D3) (Vitamin D3) 5,000 UNIT TABLET 1 TAB PO DAILY SUPPLEMENT (Reported) Cyanocobalamin (Vitamin B-12) (Cyanocobalamin Injection) 1,000 MCG/1 ML VIAL 1 ML IM Q30D SUPPLEMENT (Reported) Dicyclomine Hydrochloride (Bentyl) 10 MG CAPSULE 20 MG PO 4 TIMES/DAY stomach spasms Diltiazem HCl (Cardizem) 30 MG TABLET 30 MG PO BID heart Estradiol (Climara) 0.0375 MG/24 HOUR PATCH.TDWK 1 PATCH TOP ONCE A WEEK HRT (Reported) Flaxseed Oil (Flax Oil) 1,000 MG CAPSULE 1 CAP PO DAILY SUPPLEMENT (Reported) Folic Acid 0.8 MG TABLET 1 TAB PO BID SUPPLEMENT (Reported) Furosemide (Lasix) 40 MG TABLET 1 TAB PO DAILY heart failure Glucosam Sul Na/Chondr Shepard A Na (Glucosamine-Chondroitin Tablet) 750 MG-600 MG TABLET 1 TAB PO BID SUPPLEMENT (Reported) Guaifenesin/Dextromethorphan (Tussin Dm Cough Syrup) 100 MG-10 MG/5 ML SYRUP 5 -10 ML PO Q4H PRN COUGH (Reported) Hydromorphone HCl 2 MG TABLET 1 TAB PO BID PRN PAIN (Reported) Levothyroxine Sodium (Synthroid) 125 MCG TABLET 1 TAB PO DAILY THYROID ( Reported) Lidocaine 5 % ADH..PATCH 1 PAT TOP DAILY PRN PAIN (Reported) Magnesium Oxide 400 MG TABLET 1 TAB PO DAILY SUPPLEMENT (Reported) Metoprolol Tartrate 25 MG TABLET 25 MG PO BID heart Mirabegron (Myrbetriq) 25 MG TAB.ER.24H 1 TAB PO DAILY BLADDER (Reported) Multivitamin (Multiple Vitamins) 1 EACH TABLET 1 TAB PO DAILY SUPPLEMENT ( Reported) Niacinamide (Niacin) 500 MG TABLET 1 TAB PO DAILY SUPPLEMENT (Reported) Ondansetron (Zofran Odt) 4 MG TAB.RAPDIS 1 TAB SL TID PRN NAUSEA Pantoprazole Sodium (Protonix) 40 MG TABLET.DR 1 TAB PO BID GI (Reported) Potassium Chloride (Klor-Con M20) 20 MEQ TAB.ER.PRT 1 TAB PO DAILY SUPPLEMENT (Reported) [PRIMROSE OIL] 1,000 MG PO DAILY SUPPLEMENT (Reported) Prochlorperazine Maleate 10 MG TABLET 1 TAB PO Q6 PRN N/V (Reported) Rivaroxaban (Xarelto) 15 MG TABLET 1 TAB PO 1700 BLOOD THINNER (Reported) Simethicone 80 MG TAB.CHEW 1 TAB PO Q4 HRS NEEDED PRN GAS (Reported) Tiotropium [place] (Spiriva) 18 MCG CAP.W.DEV 1 CAP INH DAILY BREATHING PROBLEMS (Reported) Tramadol HCl 50 MG TABLET 1 TAB PO Q4H PRN PAIN (Reported) Vitamin E Mixed (Vitamin E) 1,000 UNIT CAPSULE 1 CAP PO DAILY SUPPLEMENT ( Reported) Triage Nurses Notes Reviewed? yes HPI: This patient is an 86 year old female with a past medical history including CAD, Afib, diverticulitis, pernicious amemia who presented to the emergency department today for evaluation of abdominal pain and chest pressure last night. The patient is presented from long-term where she reported that she told the nurse last night about her pain. She reported that the pain got up to a 9 out of 10. She is feeling pressure in her cough as well as generalized abdominal pain. She denied any nausea or vomiting. She reported that she did have a bowel movement today. She denied any fevers, chills, difficulty breathing, or any urinary symptoms. The patient is denying any current chest pain or chest pressure. She is reporting a, "dull," abdominal pain currently and is refusing any medication for the pain at this time. (LU LOZADA PA-C) Vital Signs & Intake/Output Vital Signs & Intake/Output Vital Signs Date Time Temp Pulse Resp B/P Pulse O2 O2 Flow FiO2 Ox Delivery Rate 02/07 1421 102 18 144/91 92 Room Air 02/07 1343 97 02/07 0954 98.5 99 16 133/82 96 Room Air Past History Travel History Traveled to [place] past 21 day No Medical History Any Pertinent Medical History? see below for history Neurological: syncope EENT: submandibular masses Cardiovascular: AFIB, CAD (s/p stent), CHF, diastolic CHF, rheumatic fever Respiratory: asthma, COPD, obstructive sleep apnea Gastrointestinal: GERD, DIVERTICULOSIS Hepatic: NONE Renal: kidney stones Musculoskeletal: osteoarthritis, sciatica, chondrocalcinosis Psychiatric: report of suicide attempt as a young woman by son Endocrine: hypothyroidism Blood Disorders: PERNICIOUS ANEMIA B12 deficiency Cancer(s): non-hodgkin lymphoma, CHEMO INJECTION GIVEN History of MRSA: No History of VRE: No History of CDIFF: No Influenza Vaccine: 08/18/16 Surgical History Surgical History: cholecystectomy, hernia repair-inguinal, hysterectomy (benign) , bladder surgery Psychosocial History Who do you live with Patient/Self Services at Home Home Health Aide, Nursing What is your primary language [place]ian Family History Family History, If Any: MOTHER (hypertension, coronary artery disease and stroke). Relation not specified for: FH: coronary artery disease FH: hypertension FH: stroke Hx Contributory? No (LU LOZADA PA-C) Review of Systems Review of Systems Constitutional: Reports: no symptoms. EENTM: Reports: no symptoms. Respiratory: Reports: no symptoms. Cardiovascular: Reports: see HPI. GI: Reports: see HPI. Genitourinary: Reports: no symptoms. Musculoskeletal: Reports: no symptoms. Skin: Reports: no symptoms. Neurological/Psychological: Reports: no symptoms. All Other Systems: Reviewed and Negative (UL LOZADA PA-C) Physical Exam Physical Exam Respiratory: normal breath sounds, chest non-tender, no respiratory distress, lungs clear, no wheezes, rales, rhonchi Comments: Well-developed well-nourished person in no acute distress HEENT: Normal EENT exam, moist mucous membranes Pupils equally round and reactive to light. Neck: Supple, no lymphadenopathy Back normal inspection Cardiovascular: Irregularly irregular Abdomen: Soft, nondistended. No overlying ecchymosis. Normoactive bowel sounds. Tympanic to percussion. Diffusely tender to superficial and deep palpation with no rebound or guarding. No specific McBurney's point tenderness. Negative Ferrer sign Extremity: Nonpitting, 1+ pedal edema bilaterally. No calf tenderness to palpation. Normal and equal pulses Neuro: Alert oriented x3, cranial nerves II through XII grossly intact. Skin: No appreciable rash on exposed skin, skin is warm and dry. Psych: Mood and affect is normal Core Measures ACS in differential dx? No Severe Sepsis Present: No Septic Shock Present: No (KIERRA CROSS,LU) Progress Differential Diagnosis: asthma, AMI, bronchitis, costochondritis, CHF, COPD, musculoskeletal pain, pericarditis, pulmonary embolism, pneumonia, pneumothorax, rib fracture, unstable angina, pulmonary embolism Diagnostic Imaging: Viewed by Me: Radiology Read, CT Scan. Discussed w/RAD: Radiology Read, CT Scan. Radiology Impression: PATIENT: ESME CARIAS PRESENT AGE: 86 PATIENT ACCOUNT NO: [id number] : [birth year] LOCATION: [facility] ORDERING PHYSICIAN: LU LOZADA PA-C SERVICE DATE: 02/07/171126 EXAM TYPE: CAT - CT ABD & PELVIS W/O IV CONTRAS EXAMINATION: CT ABDOMEN AND PELVIS WITHOUT CONTRAST CLINICAL INFORMATION: Abdominal pain. Evaluate for diverticulitis. COMPARISON: Previous CT scans, most recent 01/14/2017. TECHNIQUE : Multidetector volumetric imaging was performed from the superior aspect of the liver through the pubic symphysis. Sagittal and coronal reformatted images were obtained on the technologist's workstation. DLP: 262 mGy-cm FINDINGS: LUNG BASES : There are bilateral pleural effusions, right greater than left. These are increased from exam from earlier this month. There is likely compressive atelectasis at the right lung base. The heart is enlarged. LIVER, GALLBLADDER, AND BILIARY TREE: The liver is normal in size, shape, and attenuation. No focal hepatic lesion. There is prominence of the intra and extrahepatic bile ducts similar to previous exam. The gallbladder is not identified and presumably has been removed PANCREAS: Unremarkable. SPLEEN: Unremarkable. ADRENAL GLANDS: Unremarkable. KIDNEYS AND URETERS: The kidneys are normal in size, shape, and attenuation. No hydronephrosis, hydroureter, or calculi seen. No perinephric stranding. BLADDER: Unremarkable. GASTROINTESTINAL TRACT: There is evidence of diverticulosis. No evidence of diverticulitis is seen. The previously identified thickened loops of bowel in the left lower abdomen are no longer seen. No abscess is seen. The appendix is not identified. ABDOMINAL WALL: No significant hernia is appreciated. There is diffuse subcutaneous edema. LYMPH NODES: No enlarged lymph nodes are seen. There is trace ascites seen adjacent to the spleen. No other evidence of ascites is seen. This is decreased compared to exam from earlier this month. VASCULAR: There is evidence of atherosclerotic disease. No aneurysm is seen. PELVIC VISCERA: The uterus appears to have been removed. No pelvic mass is seen. OSSEOUS STRUCTURES: There are degenerative changes of the spine. IMPRESSION: 1. Diverticulosis. No evidence of diverticulitis. 2. The previously identified abnormal loops of bowel with wall thickening in the left lower abdomen are no longer seen. Ascites has also resolved compared to CT from earlier this month. 3. Increasing bilateral pleural effusions. DICTATED BY: LUCI KNOX MD DATE/TIME DICTATED:02/07/171218 ASSOCIATE STORE DIRECTOR:BALDEMAR DATE/TIME TRANSCRIBED:02/07/171218 CONFIDENTIAL, DO NOT COPY WITHOUT APPROPRIATE AUTHORIZATION. <Electronically signed in Other Vendor System> SIGNED BY: LUCI KNOX MD 02/07/17 1316 CXR Impression: PATIENT: ESME CARIAS PRESENT AGE: 86 PATIENT ACCOUNT NO: [id number] : [birth year] LOCATION: [facility] ORDERING PHYSICIAN: LU LOZADA PA-C SERVICE DATE: 02/07/17 EXAM TYPE: RAD - XRY-CHEST XRAY, PA AND LATERAL EXAMINATION: XR CHEST CLINICAL INFORMATION: Chest pain. Assess for pneumonia. COMPARISON: Chest x-ray 01/28/2017. TECHNIQUE: AP and lateral views of the chest were obtained. FINDINGS: There is no interval change in the right chest Port-A-Cath with the tip at the cavoatrial junction. The lung mohan are moderately well-expanded. There are increased interstitial markings in the lower zones bilaterally, slightly less prominent compared to the prior study. There are no areas of focal consolidation. There is stable cardiomegaly. The aortic arch is calcified and unfolded. There are trace pleural effusions, similar compared to the prior study. There are degenerative changes in the thoracic spine. IMPRESSION: 1. There is stable cardiomegaly. 2. There is interstitial pulmonary edema, slightly improved compared to the prior study. There is no definite focal consolidation. DICTATED BY: SMOOTH GRIFFITH MD DATE/TIME DICTATED:02/07/171307 ASSOCIATE STORE DIRECTOR:BALDEMAR DATE/TIME TRANSCRIBED:1307 CONFIDENTIAL, DO NOT COPY WITHOUT APPROPRIATE AUTHORIZATION. < Electronically signed in Other Vendor System> SIGNED BY: SMOOTH GRIFFITH MD 1314 Initial ED EKG: AFIB, no ST T wave changes, 101 bpm Comments: Discussed this patient with Dr. Sanabria. In agreement with the plan for this patient to be discharged to long-term. No acute intra-abdominal process. Chest x-ray largely unremarkable. Stable for discharge home. 02/07/2017 2:32:11 PM: lpn were at the patient's bedside to bring her back to the long-term on discharge, however the patient started complaining of nausea and dizziness. (KIERRA CROSS,LU) Plan of Care: Orders Procedure Date/time Status URINALYSIS 02/07 1303 Complete TROPONIN LEVEL 02/07 1007 Complete LIPASE 02/07 1007 Complete LACTIC ACID 02/07 1007 Complete DIRECT BILIRUBIN 02/07 1007 Complete COMPREHENSIVE METABOLIC PANEL 02/07 1007 Complete CBC WITHOUT DIFFERENTIAL 02/07 1007 Complete B-TYPE NATRIURETIC PEP (BNP) 02/07 1007 Complete AMYLASE 02/07 1007 Complete EKG 02/07 1007 Active Current Medications Sig/Timi Start time Last Medication Dose Stop Time Status Admin Ondansetron HCl 4 MG ONCE ONE 02/07 1445 UNVr (Zofran) 02/07 1446 Laboratory Tests 02/07/17 1307: Lactic Acid Cancelled 02/07/17 1303: Urinalysis LIGHT H, Urine Color YEL, Urine Clarity CLEAR, Urine pH 6.5, Ur Specific [place] 1.010, Urine Protein NEG, Urine Ketones NEG, Urine Nitrite NEG, Urine Bilirubin NEG, Urine Urobilinogen 0.2, Ur Leukocyte Esterase TRACE H, Ur Microscopic SEDIMENT EXAMINED, Urine RBC RARE, Urine WBC 5-10 H, Ur Epithelial Cells MOD H, Urine Bacteria FEW H, Urine Hemoglobin NEG, Urine Glucose NEG 02/07/17 1027: Anion Gap 9, Estimated GFR 59 L, BUN/Creatinine Ratio 12.2, Glucose 111 H, Lactic Acid 1.3, Calcium 9.5, Total Bilirubin 0.9, Direct Bilirubin 0.4, AST 29, ALT 38, Alkaline Phosphatase 137 H, Troponin I < 0.01, Sxg-H-Ucpoywzjqzx Pept 5880 H, Total Protein 6.2 L, Albumin 3.5, Globulin 2.7, Albumin/Globulin Ratio 1.3, Amylase 160 H, Lipase 37, CBC w Diff NO MAN DIFF REQ, RBC 3.82 L, MCV 88.4, MCH 28.9, RDW 20.5 H, MPV 8.2, Gran % 52.7, Lymphocytes % 31.7, Monocytes % 14.2 H, Eosinophils % 1.1, Basophils % 0.3, Absolute Granulocytes 4.2, Absolute Lymphocytes 2.5, Absolute Monocytes 1.1 H, Absolute Eosinophils 0.1, Absolute Basophils 0, PUBS MCHC 32.7 L Departure Departure Disposition: HOME OR SELF CARE Condition: Stable Clinical Impression Primary Impression: Abdominal pain Qualifiers: Abdominal location: unspecified location Qualified Code: R10.9 - Unspecified abdominal pain Referrals: NATI ALBARRAN MD (PCP/Family) Additional Instructions: Rest and stay hydrated. Return for any worsening symptoms or concerns. Departure Forms: Customer Survey General Discharge Information (LU LOZADA PA-C) PA/SENIOR TELLER Co-Sign Statement Statement: ED Attending supervision documentation- x I saw and evaluated the patient. I have also reviewed all the pertinent lab results and diagnostic results. I agree with the findings and the plan of care as documented in the PA's/SENIOR TELLER's documentation. [] I have reviewed the ED Record and agree with the PA's/SENIOR TELLER's documentation. [] Additions or exceptions (if any) to the PAs/SENIOR TELLER's note and plan are summarized below: [] (IRAM MAYBERRY,PAOLA) Critical Care Note Critical Care Note Critical Care Time: non-applicable (LU LOZADA PA-C)
[2017-02-07] MEDS ORDERED: SIMETHICONE80 M1 PO (09:59)
[2017-02-07 10:38] LABS: ABSOLUTE BASOPHIL COUNT 0 /CUMM (0.0-0.2); ABSOLUTE EOSINOPHIL COUNT 0.1 /CUMM (0.0-0.7); ABSOLUTE GRANULOCYTE CT 4.2 /CUMM (1.4-6.5); ABSOLUTE LYMPH COUNT 2.5 /CUMM (1.2-3.4); ABSOLUTE MONOCYTE COUNT 1.1 /CUMM (0.10-0.60); BASOPHIL % 0.3 % (0.0-2.0); EOSINOPHIL % 1.1 % (0-5); GRANULOCYTE % 52.7 % (42.2-75.2); HEMATOCRIT 33.8 % (37-47); MEAN CORPUSCULAR HGB 28.9 PG (27.0-31.0); MEAN CORPUSCULAR HGB CONC 32.7 G/DL (33.0-37.0); MEAN CORPUSCULAR VOLUME 88.4 FL (81.0-99.0); MEAN PLATELET VOLUME 8.2 FL (7.4-10.4); PLATELET COUNT 215 /CUMM (130-400); RBC DISTRIBUTION WIDTH 20.5 % (11.5-14.5); RED BLOOD CELL CT 3.82 /CUMM (4.20-5.40); WHITE BLOOD CELL COUNT 8.1 /CUMM (4.8-10.8)
--- NOTE | 2017-02-07 13:14 | RADIOLOGY REPORT ---
EXAMINATION: XR CHEST CLINICAL INFORMATION: Chest pain. Assess for pneumonia. COMPARISON: Chest x-ray 01/28/2017. TECHNIQUE: AP and lateral views of the chest were obtained. FINDINGS: There is no interval change in the right chest Port-A-Cath with the tip at the cavoatrial junction. The lung mohan are moderately well-expanded. There are increased interstitial markings in the lower zones bilaterally, slightly less prominent compared to the prior study. There are no areas of focal consolidation. There is stable cardiomegaly. The aortic arch is calcified and unfolded. There are trace pleural effusions, similar compared to the prior study. There are degenerative changes in the thoracic spine. IMPRESSION: 1. There is stable cardiomegaly. 2. There is interstitial pulmonary edema, slightly improved compared to the prior study. There is no definite focal consolidation.
--- NOTE | 2017-02-07 13:16 | CT SCAN REPORT ---
EXAMINATION: CT ABDOMEN AND PELVIS WITHOUT CONTRAST CLINICAL INFORMATION: Abdominal pain. Evaluate for diverticulitis. COMPARISON: Previous CT scans, most recent 01/14/2017. TECHNIQUE: Multidetector volumetric imaging was performed from the superior aspect of the liver through the pubic symphysis. Sagittal and coronal reformatted images were obtained on the technologist's workstation. DLP: 262 mGy-cm FINDINGS: LUNG BASES: There are bilateral pleural effusions, right greater than left. These are increased from exam from earlier this month. There is likely compressive atelectasis at the right lung base. The heart is enlarged. LIVER, GALLBLADDER, AND BILIARY TREE: The liver is normal in size, shape, and attenuation. No focal hepatic lesion. There is prominence of the intra and extrahepatic bile ducts similar to previous exam. The gallbladder is not identified and presumably has been removed PANCREAS: Unremarkable. SPLEEN: Unremarkable. ADRENAL GLANDS: Unremarkable. KIDNEYS AND URETERS: The kidneys are normal in size, shape, and attenuation. No hydronephrosis, hydroureter, or calculi seen. No perinephric stranding. BLADDER: Unremarkable. GASTROINTESTINAL TRACT: There is evidence of diverticulosis. No evidence of diverticulitis is seen. The previously identified thickened loops of bowel in the left lower abdomen are no longer seen. No abscess is seen. The appendix is not identified. ABDOMINAL WALL: No significant hernia is appreciated. There is diffuse subcutaneous edema. LYMPH NODES: No enlarged lymph nodes are seen. There is trace ascites seen adjacent to the spleen. No other evidence of ascites is seen. This is decreased compared to exam from earlier this month. VASCULAR: There is evidence of atherosclerotic disease. No aneurysm is seen. PELVIC VISCERA: The uterus appears to have been removed. No pelvic mass is seen. OSSEOUS STRUCTURES: There are degenerative changes of the spine. IMPRESSION: 1. Diverticulosis. No evidence of diverticulitis. 2. The previously identified abnormal loops of bowel with wall thickening in the left lower abdomen are no longer seen. Ascites has also resolved compared to CT from earlier this month. 3. Increasing bilateral pleural effusions.
[2017-02-07 15:51] VITALS: BP 135/74
== END 2017-02-07 16:43 ==
LOC: ERH 09:49
PROVIDERS: Physician Assistant
DX: R10.9 Unspecified abdominal pain (principal); R07.89 Other chest pain; R05 Cough; I48.91 Unspecified atrial fibrillation; I50.9 Heart failure, unspecified; J44.9 Chronic obstructive pulmonary disease, unspecified; G47.30 Sleep apnea, unspecified
CPT/HCPCS: 74176; 81001; 93005; 93010; 96372; J3101

== ENCOUNTER 2017-02-11 04:49 | Emergency (ER) | payer OTHER, MEDICARE ==
[~2017-02-11] VITALS: Ht 152.4 cm; Wt 61.2 kg
[~2017-02-11 04:49] MED LIST changes: +SIMETHICONE80 M1 PO
--- NOTE | 2017-02-11 05:14 | ED CARDIAC/CP/PALPITATIONS ---
History of Present Illness General Chief Complaint: Chest Pain Stated Complaint: BIBA CHEST PAIN Source: patient, family, old records, EMS Exam Limitations: no limitations Vital Signs & Intake/Output Vital Signs & Intake/Output Vital Signs Date Time Temp Pulse Resp B/P Pulse O2 O2 Flow FiO2 Ox Delivery Rate 02/11 0813 97.9 84 18 155/68 95 Room Air 02/11 0706 97.7 103 20 142/66 96 Room Air 02/11 0507 97.5 83 18 145/67 95 Room Air Allergies Coded Allergies: Penicillins (RASH 12/16/16) acetaminophen (BURNING FEELING IN STOMACH 12/16/16) animal dander (PER 01/14/17) latex (SORES 12/16/16) mold (UNKNOWN 12/16/16) Sulfa (Sulfonamide Antibiotics) (GI 12/16/16) aspirin (MILD GI 12/16/16) diazepam (GI 12/16/16) oxycodone (GI, MIGRAINE 12/16/16) propoxyphene (GI 12/16/16) Uncoded Allergies: COLOGNE (PER PT UPSETS HER WITH THE SMELL 10/17/16) HAIR SPRAY (PER PT UPSETS HER WITH THE SMELL 10/17/16) SMOKE (PER PT CANT STAND SMELLS IT UPSETS HER 10/17/16) TOBACCO (PER 01/14/17) Triage Note: PT BIBA FROM [facility] FOR CHEST PAIN THAT WORK HER UP THIS AM. PT INITIALLY DESCRIBED THE PAIN SQUEEZING, THEN THE PAIN CHANGED TO A TIGHT FEELING. PER EMS, PT WAS GIVEN DILAUDID AT [facility] FOR THE PAIN. UPON ARRIVAL TO ED PT DENIES ANY CP CURRENTLY. PT AFIB ON MONITOR WHICH IS BASELINE PER EMS. PT HAS LEFT ARM RESTRICTION AND PORT TO R CHEST WALL. BLE APPEARS TO HAVE SOME SWELLING. DR KAUR AT BEDSIDE FOR EVAL. Triage Nurses Notes Reviewed? yes HPI: Patient presents for evaluation of a left chest pain that began just before 2 AM. Patient apparently awoke from sleep due to a "twinge" of left-sided chest pain. She states she ate some Jell-O and was able to go back to bed. Then she awoke prior to arrival with the same pain. She also felt some shortness of breath associated with this. The pain lasted until she was given medication by the paramedics. She denies chest pain or dyspnea currently. She states she had a prior episode similar to this last week (she was seen in the emergency department at [facility]). The patient's chest pain was intermittent. She denies associated diaphoresis. (VINCENT MAYBERRY,CLAIR Webster) Reconcile Medications Ascorbic Acid (Vitamin C) 500 MG TABLET 1 TAB PO TID SUPPLEMENT (Reported) Biotin 5 MG CAPSULE 1 TAB PO DAILY SUPPLEMENT (Reported) Calcium Carbonate/Vitamin D3 (Calcium 600 + Vit D Tablet) (Unknown Strength) TABLET (Unknown Dose) PO BID SUPPLEMENT (Reported) Cholecalciferol (Vitamin D3) (Vitamin D3) 5,000 UNIT TABLET 1 TAB PO DAILY SUPPLEMENT (Reported) Cyanocobalamin (Vitamin B-12) (Cyanocobalamin Injection) 1,000 MCG/1 ML VIAL 1 ML IM Q30D SUPPLEMENT (Reported) Dicyclomine Hydrochloride (Bentyl) 10 MG CAPSULE 20 MG PO 4 TIMES/DAY stomach spasms Diltiazem HCl (Cardizem) 30 MG TABLET 30 MG PO BID heart Estradiol (Climara) 0.0375 MG/24 HOUR PATCH.TDWK 1 PATCH TOP ONCE A WEEK HRT (Reported) Flaxseed Oil (Flax Oil) 1,000 MG CAPSULE 1 CAP PO DAILY SUPPLEMENT (Reported) Folic Acid 0.8 MG TABLET 1 TAB PO BID SUPPLEMENT (Reported) Furosemide (Lasix) 40 MG TABLET 1 TAB PO DAILY heart failure Glucosam Sul Na/Chondr Shepard A Na (Glucosamine-Chondroitin Tablet) 750 MG-600 MG TABLET 1 TAB PO BID SUPPLEMENT (Reported) Guaifenesin/Dextromethorphan (Tussin Dm Cough Syrup) 100 MG-10 MG/5 ML SYRUP 5 -10 ML PO Q4H PRN COUGH (Reported) Hydromorphone HCl 2 MG TABLET 1 TAB PO BID PRN PAIN (Reported) Levothyroxine Sodium (Synthroid) 125 MCG TABLET 1 TAB PO DAILY AC THYROID ( Reported) Lidocaine 5 % ADH..PATCH 1 PAT TOP DAILY PRN PAIN (Reported) Magnesium Oxide 400 MG TABLET 1 TAB PO DAILY SUPPLEMENT (Reported) Metoprolol Tartrate 25 MG TABLET 25 MG PO BID heart Mirabegron (Myrbetriq) 25 MG TAB.ER.24H 1 TAB PO DAILY BLADDER (Reported) Multivitamin (Multiple Vitamins) 1 EACH TABLET 1 TAB PO DAILY SUPPLEMENT ( Reported) Niacinamide (Niacin) 500 MG TABLET 1 TAB PO DAILY SUPPLEMENT (Reported) Ondansetron (Zofran Odt) 4 MG TAB.RAPDIS 1 TAB SL TID PRN NAUSEA Pantoprazole Sodium (Protonix) 40 MG TABLET.DR 1 TAB PO BID GI (Reported) Potassium Chloride (Klor-Con M20) 20 MEQ TAB.ER.PRT 1 TAB PO DAILY SUPPLEMENT (Reported) [PRIMROSE OIL] 1,000 MG PO DAILY SUPPLEMENT (Reported) Prochlorperazine Maleate 10 MG TABLET 1 TAB PO Q6 PRN N/V (Reported) Rivaroxaban (Xarelto) 15 MG TABLET 1 TAB PO 1700 BLOOD THINNER (Reported) Simethicone 80 MG TAB.CHEW 1 TAB PO Q4 HRS NEEDED PRN GAS (Reported) Tiotropium [place] (Spiriva) 18 MCG CAP.W.DEV 1 CAP INH DAILY BREATHING PROBLEMS (Reported) Tramadol HCl 50 MG TABLET 1 TAB PO Q4H PRN PAIN (Reported) Vitamin E Mixed (Vitamin E) 1,000 UNIT CAPSULE 1 CAP PO DAILY SUPPLEMENT ( Reported) (PAOLA WALDEN MD) Past History Travel History Traveled to [place] past 21 day No Medical History Any Pertinent Medical History? see below for history Neurological: syncope EENT: submandibular masses Cardiovascular: AFIB, CAD (s/p stent), CHF, diastolic CHF, rheumatic fever Respiratory: asthma, COPD, obstructive sleep apnea Gastrointestinal: GERD, DIVERTICULOSIS Hepatic: NONE Renal: kidney stones Musculoskeletal: osteoarthritis, sciatica, chondrocalcinosis Psychiatric: report of suicide attempt as a young woman by son Endocrine: hypothyroidism Blood Disorders: PERNICIOUS ANEMIA B12 deficiency Cancer(s): non-hodgkin lymphoma, CHEMO INJECTION GIVEN History of MRSA: No History of VRE: No History of CDIFF: No Surgical History Surgical History: cholecystectomy, hernia repair-inguinal, hysterectomy (benign) , bladder surgery Psychosocial History Who do you live with Patient/Self Services at Home Home Health Aide, Nursing What is your primary language [place] Citizen Family History Family History, If Any: MOTHER (hypertension, coronary artery disease and stroke). Relation not specified for: FH: coronary artery disease FH: hypertension FH: stroke Hx Contributory? No (VINCENT MAYBERRY,CLAIR Webster) Review of Systems Review of Systems Constitutional: Reports: no symptoms. EENTM: Reports: no symptoms. Respiratory: Reports: no symptoms. Cardiovascular: Reports: see HPI. GI: Reports: no symptoms. Genitourinary: Reports: no symptoms. Musculoskeletal: Reports: no symptoms. Skin: Reports: no symptoms. Neurological/Psychological: Reports: no symptoms. Hematologic/Endocrine: Reports: no symptoms. Immunologic/Allergic: Reports: no symptoms. All Other Systems: Reviewed and Negative (VINCENT MAYBERRY,CLAIR Webster) Physical Exam Physical Exam Cardiovascular: SEE BELOW Comments: Gen.: Well-nourished, well-developed, no acute respiratory distress. Head: Normocephalic, atraumatic. Eyes: Normal inspection bilaterally Ears: Normal inspection bilaterally Nose: Normal inspection Throat/mouth : Moist mucosa Neck: Supple, full range of motion, no goiter Heart: IRRegular rate and rhythm, soft systolic murmur Lungs: Diminished breath sounds with mild crackles in the right base posteriorly Chest: Nontender Back: Normal range of motion Abdomen: Soft, diffusely tender without rebound or guarding, nondistended, normal bowel sounds Extremities: Normal range of motion grossly, equal radial pulses, no cyanosis, bilateral 1+ lower extremity pitting edema Neurologic: Cranial nerves grossly intact, speech is clear Skin: warm and dry Psychiatric: Calm, cooperative, no apparent delusions or hallucinations Core Measures ACS in differential dx? No Severe Sepsis Present: No Septic Shock Present: No (VINCENT MAYBERRY,CLAIR Webster) Progress Differential Diagnosis: chf, copd, EFFUSION, ANGINA, mi Plan of Care: Orders Procedure Date/time Status Regular Diet 02/11 B Active TROPONIN LEVEL 02/11 0934 Complete Telemetry/[facility] 02/11 513 Active TROPONIN LEVEL 02/11 05 Complete MAGNESIUM 02/11 513 Complete CBC WITHOUT DIFFERENTIAL 02/11 513 Complete B-TYPE NATRIURETIC PEP (BNP) 02/11 05 Complete BASIC METABOLIC PANEL 02/11 05 Complete EKG 02/11 0454 Active Laboratory Tests 02/11/17 1041: Troponin I < 0.01 02/11/17 0517: Anion Gap 7, Estimated GFR 52 L, BUN/Creatinine Ratio 10.0, Glucose 98, Calcium 9.0, Magnesium 1.7, Troponin I < 0.01, Oog-A-Kmovlhjrlot Pept 4600 H, CBC w Diff NO MAN DIFF REQ, RBC 3.53 L, MCV 89.2, MCH 28.9, RDW 20.1 H, MPV 8.4, Gran % 37.2 L, Lymphocytes % 37.8, Monocytes % 19.5 H, Eosinophils % 5.1 H, Basophils % 0.4, Absolute Granulocytes 2.1, Absolute Lymphocytes 2.1, Absolute Monocytes 1.1 H, Absolute Eosinophils 0.3, Absolute Basophils 0, PUBS MCHC 32.4 L Initial ED EKG: rate (80), AFIB, nonspecific ST T wave chg Prior EKG: unchanged Comments: 02/11/2017 6:05:25 AM I have updated Shayna on her test results. She denies chest pain or shortness of breath currently. She appears comfortable. Repeat EKG and troponin are pending. Given the patient's elevated BNP and chest x-ray findings, furosemide ordered. 02/11/2017 7:07:31 AM patient signed out to Dr. Walden. Reevaluation for diuresis and stable blood pressure. (VINCENT MAYBERRY,CLAIR Webster) Comments: Repeat troponin <0.01 (PAOLA WALDEN MD) Departure Departure Condition: Stable Referrals: AVIS MAYBERRY,NATI Winslow (PCP/Family) Departure Forms: Customer Survey General Discharge Information (CLAIR KAUR MD) Departure Time of Disposition: 1154 Disposition: ACUTE REHAB FACILITY Clinical Impression Primary Impression: Atypical chest pain Secondary Impressions: Congestive heart failure Dyspnea Qualifiers: Dyspnea type: other forms of dyspnea Qualified Code: R06.09 - Other forms of dyspnea (PAOLA WALDEN MD) Critical Care Note Critical Care Note Critical Care Time: 30-74 min (40) (PAOLA WALDEN MD)
[2017-02-11 05:31] LABS: ABSOLUTE BASOPHIL COUNT 0 /CUMM (0.0-0.2); ABSOLUTE EOSINOPHIL COUNT 0.3 /CUMM (0.0-0.7); ABSOLUTE GRANULOCYTE CT 2.1 /CUMM (1.4-6.5); ABSOLUTE LYMPH COUNT 2.1 /CUMM (1.2-3.4); ABSOLUTE MONOCYTE COUNT 1.1 /CUMM (0.10-0.60); BASOPHIL % 0.4 % (0.0-2.0); EOSINOPHIL % 5.1 % (0-5); GRANULOCYTE % 37.2 % (42.2-75.2); HEMATOCRIT 31.5 % (37-47); MEAN CORPUSCULAR HGB 28.9 PG (27.0-31.0); MEAN CORPUSCULAR HGB CONC 32.4 G/DL (33.0-37.0); MEAN CORPUSCULAR VOLUME 89.2 FL (81.0-99.0); MEAN PLATELET VOLUME 8.4 FL (7.4-10.4); PLATELET COUNT 231 /CUMM (130-400); RBC DISTRIBUTION WIDTH 20.1 % (11.5-14.5); RED BLOOD CELL CT 3.53 /CUMM (4.20-5.40); WHITE BLOOD CELL COUNT 5.5 /CUMM (4.8-10.8)
--- NOTE | 2017-02-11 05:33 | RADIOLOGY REPORT ---
EXAMINATION: XR PORTABLE CHEST CLINICAL INFORMATION: CHF. Bilateral effusions. Chest pain. Dyspnea. Abnormal chest sounds on the right. COMPARISON: Chest x-ray 02/07/[address] abdomen pelvis 02/07/2017 TECHNIQUE: Portable AP portable view of the chest was obtained. 5:16 AM FINDINGS: Central port catheter tip in superior vena cava. Persistent mild bilateral pulmonary vascular congestion of the central hilar vessels similar prior chest x-ray. No dense consolidation. Haziness at lung bases due to bilateral pleural effusion similar prior chest x-ray. Heart size enlarged. Calcifications of thoracic aorta IMPRESSION: Persistent mild pulmonary vascular congestion. Persistent bilateral pleural effusions.
[2017-02-11 12:33] VITALS: BP 144/72
== END 2017-02-11 12:35 ==
LOC: ERH 04:49
PROVIDERS: Emergency Medicine
DX: I50.9 Heart failure, unspecified (principal); R07.89 Other chest pain
CPT/HCPCS: 93005; 93010; 96374; 99291; J1940

== ENCOUNTER 2017-02-19 08:21 | Inpatient (IN) | payer OTHER, MEDICARE ==
[~2017-02-19] VITALS: Ht 158.8 cm; Wt 66.7 kg
--- NOTE | 2017-02-19 08:34 | NUR ---
SANA FROM [facility], S/P FALL, STATES SHE WAS WALKING IN HER ROOM, LOST BALANCE AND FELL, UNSURE IF SHE WAS DIZZY PRIOR TO FALL, C/O PAIN IN R HIP. R HIP SHORTER THAN LEFT.
--- NOTE | 2017-02-19 08:54 | ED UPPER/LOWER EXTREMITY COMPL ---
History of Present Illness General Chief Complaint: Fall Stated Complaint: BIBA FALL Source: patient, family, old records, EMS Exam Limitations: no limitations Vital Signs & Intake/Output Vital Signs & Intake/Output Vital Signs Date Time Temp Pulse Resp B/P Pulse O2 O2 Flow FiO2 Ox Delivery Rate 02/21 1518 98.9 100 102/60 02/21 0800 98.9 100 16 102/60 98 Nasal 4.0L Cannula 02/21 0439 98.2 95 20 100/58 100 Nasal 4.0L Cannula 02/21 0000 94 Nasal 4.0L Cannula 02/20 2200 98.7 114 26 94/54 94 Nasal 4.0L Cannula 02/20 2141 98.9 110 28 88/50 92 Nasal 3.0L Cannula 02/20 1622 97.9 101 20 106/60 96 Nasal 2.0L Cannula ED Intake and Output 02/21 0000 02/20 1200 Intake Total 550 470 Output Total 350 150 Balance 200 320 Intake, IV 550 420 Intake, Oral 0 50 Number 0 0 Bowel Movements Output, Urine 350 150 Patient 137 lb Weight Allergies Coded Allergies: Penicillins (RASH 12/16/16) acetaminophen (BURNING FEELING IN STOMACH 12/16/16) animal dander (PER 01/14/17) garlic (UNKNOWN, LISTED ON JAN W NO REACTION NOTED 02/19/17) latex (SORES 12/16/16) mold (UNKNOWN 12/16/16) onion (UNKNOWN - PER JAN NO REACTION NOTED 02/19/17) Sulfa (Sulfonamide Antibiotics) (GI 12/16/16) aspirin (MILD GI 12/16/16) diazepam (GI 12/16/16) oxycodone (GI, MIGRAINE 12/16/16) propoxyphene (GI 12/16/16) Uncoded Allergies: COLOGNE (PER PT UPSETS HER WITH THE SMELL 10/17/16) HAIR SPRAY (PER PT UPSETS HER WITH THE SMELL 10/17/16) SMOKE (PER PT CANT STAND SMELLS IT UPSETS HER 10/17/16) TOBACCO (PER 01/14/17) Reconcile Medications Bisacodyl 10 MG SUPP.RECT 1 SUP RC DAILY PRN CONSTIPATION (Reported) Cholecalciferol (Vitamin D3) (Vitamin D3) 5,000 UNIT TABLET 1 TAB PO DAILY SUPPLEMENT (Reported) Cyanocobalamin (Vitamin B-12) (Cyanocobalamin Injection) 1,000 MCG/1 ML VIAL 1 ML IM Q30D SUPPLEMENT (Reported) Reason to Stop at ADM: monthly Dicyclomine Hydrochloride (Bentyl) 10 MG CAPSULE 20 MG PO 4 TIMES/DAY stomach spasms Diltiazem HCl (Cardizem) 30 MG TABLET 30 MG PO BID heart Dronabinol (Marinol) 2.5 MG CAPSULE 1 CAP PO BID appetite (Reported) Reason to Stop at ADM: not needed, will give IV fluid Estradiol (Climara) 0.0375 MG/24 HOUR PATCH.TDWK 1 PATCH TOP QWED HRT ( Reported) Reason to Stop at ADM: not needed in hospital Furosemide (Lasix) 40 MG TABLET 1 TAB PO DAILY heart failure Reason to Stop at ADM: hypotension, dehydration Guaifenesin/Dextromethorphan (Tussin Dm Cough Syrup) 100 MG-10 MG/5 ML SYRUP 10 ML PO Q4H PRN COUGH (Reported) Reason to Stop at ADM: no symptoms Hydromorphone HCl 2 MG TABLET 1 TAB PO Q12H PRN PAIN (Reported) Reason to Stop at ADM: pain pathway Levothyroxine Sodium (Synthroid) 125 MCG TABLET 1 TAB PO QHS THYROID ( Reported) Librax (Librax Capsule) 5 MG-2.5 MG CAPSULE 1 CAP PO DAILY PRN ABD PAIN ( Reported) Reason to Stop at ADM: not needed Lidocaine 5 % ADH..PATCH 1 PAT TOP DAILY PRN PAIN (Reported) Reason to Stop at ADM: pain pathway Magnesium Hydroxide (Milk Of Magnesia) 400 MG/5 ML ORAL.SUSP 30 ML PO DAILY PRN CONSTIPATION (Reported) Metoprolol Tartrate 25 MG TABLET 25 MG PO BID heart Mirabegron (Myrbetriq) 25 MG TAB.ER.24H 1 TAB PO DAILY BLADDER (Reported) Multivitamin (Multiple Vitamins) 1 EACH TABLET 1 TAB PO DAILY SUPPLEMENT ( Reported) Na Phos,M-B/Na Phos,Di-Ba (Fleet Enema) 19 GRAM-7 GRAM/118 ML ENEMA 1 E RC DAILY PRN CONSTIPATION (Reported) Reason to Stop at ADM: Not needed Ondansetron (Zofran Odt) 4 MG TAB.RAPDIS 1 TAB SL Q8H PRN NAUSEA (Reported) Pantoprazole Sodium (Protonix) 40 MG TABLET.DR 1 TAB PO BID GI (Reported) Potassium Chloride (Klor-Con M20) 20 MEQ TAB.ER.PRT 1 TAB PO DAILY SUPPLEMENT (Reported) Prochlorperazine Maleate 10 MG TABLET 1 TAB PO Q6 PRN N/V (Reported) Reason to Stop at ADM: not needed Rivaroxaban (Xarelto) 15 MG TABLET 1 TAB PO 1700 BLOOD THINNER (Reported) Reason to Stop at ADM: Pre-op Simethicone 80 MG TAB.CHEW 1 TAB PO Q4 HRS NEEDED PRN GAS/INDIGESTION ( Reported) Reason to Stop at ADM: not needed Tiotropium [place] (Spiriva) 18 MCG CAP.W.DEV 1 CAP INH DAILY BREATHING PROBLEMS (Reported) Tramadol HCl 50 MG TABLET 1 TAB PO Q4H PRN PAIN (Reported) Trazodone HCl 50 MG TABLET 25 MG PO BID PRN anxiety/agitation (Reported) Triage Note: BIBA FROM [facility], S/P FALL, STATES SHE WAS WALKING IN HER ROOM, LOST BALANCE AND FELL, UNSURE IF SHE WAS DIZZY PRIOR TO FALL, C/O PAIN IN R HIP. R HIP SHORTER THAN LEFT. Triage Nurses Notes Reviewed? yes HPI: Patient presents for evaluation of severe constant sharp left hip pain gets worse with movement that began abruptly after falling down about an hour and half prior to arrival. The patient states that she was getting dressed this morning when she became a little dizzy and then stumbled and fell. She was unable to get up off the floor due to pain. She denies loss of consciousness. She denies any other injury aside from right hip pain. Past History Travel History Traveled to [place] past 21 day No Medical History Any Pertinent Medical History? see below for history Neurological: syncope EENT: submandibular masses Cardiovascular: AFIB, CAD (s/p stent), CHF, diastolic CHF, rheumatic fever Respiratory: asthma, COPD, obstructive sleep apnea Gastrointestinal: GERD, DIVERTICULOSIS Hepatic: NONE Renal: kidney stones Musculoskeletal: osteoarthritis, sciatica, chondrocalcinosis Psychiatric: report of suicide attempt as a young woman by son Endocrine: hypothyroidism Blood Disorders: PERNICIOUS ANEMIA B12 deficiency Cancer(s): non-hodgkin lymphoma, CHEMO INJECTION GIVEN History of MRSA: No History of VRE: No History of CDIFF: No Surgical History Surgical History: cholecystectomy, hernia repair-inguinal, hysterectomy (benign) , bladder surgery Psychosocial History Who do you live with Patient/Self Services at Home Home Health Aide, Nursing What is your primary language Sami Tobacco Use: Never used ETOH Use: denies use Family History Family History, If Any: MOTHER (hypertension, coronary artery disease and stroke). Relation not specified for: FH: coronary artery disease FH: hypertension FH: stroke Hx Contributory? No Review of Systems Review of Systems Constitutional: Reports: no symptoms. EENTM: Reports: no symptoms. Respiratory: Reports: no symptoms. Cardiovascular: Reports: no symptoms. Gastrointestinal/Abdominal: Reports: no symptoms. Genitourinary: Reports: no symptoms. Musculoskeletal: Reports: no symptoms. Skin: Reports: no symptoms. Neurological/Psychological: Reports: no symptoms. Hematologic/Endocrine: Reports: no symptoms. Immunological: Reports: no symptoms. All Other Systems: Reviewed and Negative Physical Exam Physical Exam General Appearance: SEE BELOW Comments: Gen.: Well-nourished, well-developed, no acute respiratory distress. Head: Normocephalic, atraumatic. Eyes: Normal inspection bilaterally Ears: Normal inspection bilaterally Nose: Normal inspection, nasal cannula in place Throat/mouth : Moist mucosa Neck: Supple, full range of motion, no goiter Heart: Regular rate and rhythm Lungs: Quiet respirations Back: Normal range of motion Extremities: Pain and tenderness with range of motion of the right hip, right lower extremity is neurovascular intact distally. Neurologic: Cranial nerves grossly intact, speech is clear Skin: warm and dry Psychiatric: Calm, cooperative, no apparent delusions or hallucinations Progress Differential Diagnosis: dislocation, fracture, sprain Plan of Care: Orders Procedure Date/time Status CBC WITHOUT DIFFERENTIAL 02/22 06 Active BASIC ELECTROLYTES PLUS BUN&CR 02/22 06 Active CBC WITHOUT DIFFERENTIAL 02/21 0600 Complete BASIC ELECTROLYTES 02/21 0600 Complete XRY-HIP 2-3 VIEWS, RIGHT 02/21 UNK Active XRY-FOOT COMPLETE, LEFT 02/21 UNK Active Therapeutic Activities 02/21 UNK Complete PT EVAL MOD COMPLEX 30 MIN 02/21 UNK Complete Regular Diet 02/20 D Active Wound Care/Dressing 02/20 2231 Active OXYGEN 02/20 UNK Complete OXYGEN TRANSPORT 02/20 UNK Complete OXYGEN DAILY CHARGE 02/20 UNK Complete PT Evaluate & Treat 02/20 UNK Active Activity/Ambulation 02/20 UNK Active Current Medications Sig/Timi Start time Last Medication Dose Stop Time Status Admin Metoprolol Tartrate 25 MG BID 02/21 2200 AC (Lopressor) Rivaroxaban 15 MG 1700 02/21 1700 AC (Xarelto) Oxycodone/ 1 TAB Q6P PRN 02/21 1515 AC Acetaminophen (Percocet) Albuterol Sulfate 3 ML Q4P PRN 02/19 1715 AC (Proventil) Magnesium Hydroxide 30 ML DAILY PRN 02/19 1615 AC (Milk Of Magnesia) Bisacodyl 10 MG DAILY PRN 02/19 1600 AC (Dulcolax Supp) Ondansetron HCl 4 MG Q8H PRN 02/19 1600 AC (Zofran) Trazodone HCl 25 MG BID PRN 02/19 1600 AC (Desyrel) Albuterol Sulfate 3 ML Q4H PRN 02/19 1330 AC (Proventil) Dicyclomine HCl 20 MG 4 TIMES/DAY PRN 02/19 1330 AC (Bentyl) Acetaminophen 325 MG Q6P PRN 02/19 1145 AC (Tylenol) Laboratory Tests 02/21/17 0555: Anion Gap 5, CBC w Diff MAN DIFF ORDERED, RBC 2.81 L, MCV 90.0, MCH 29.6, RDW 18.5 H, MPV 8.4, Gran % 68.4, Lymphocytes % 15.7 L, Monocytes % 14.5 H, Eosinophils % 1.0, Basophils % 0.4, Absolute Granulocytes 7.4 H, Absolute Lymphocytes 1.7, Absolute Monocytes 1.6 H, Absolute Eosinophils 0.1, Absolute Basophils 0, Platelet Estimate ADEQUATE, Hypochromic-Microcytic 1+, Poikilocytosis 1+, Anisocytosis 1+, Ovalocytes 1+, PUBS MCHC 32.9 L Diagnostic Imaging: Discussed w/RAD: Radiology Read. Radiology Impression: PATIENT: ESME CARIAS PRESENT AGE: 86 PATIENT ACCOUNT NO: [id number] : [birth year] LOCATION: [facility] [place] ORDERING PHYSICIAN: CLAIR KAUR MD SERVICE DATE: 02/19/17 EXAM TYPE: RAD - XRY-HIP 2-3 VIEWS, RIGHT EXAMINATION: XR HIP, RIGHT CLINICAL INFORMATION: Pain after fall. COMPARISON: 01/20/2017 TECHNIQUE: Two views of the right hip. FINDINGS: There is a mildly displaced fracture through the subcapital region of the femoral neck with femoral shaft fragment exhibiting slight superolateral displacement. The visualized pelvic bones are intact. There is degenerative subarticular sclerosis and osteophyte formation at the inferior aspect of the right sacroiliac joint. IMPRESSION: Mildly displaced fracture of the right femoral neck. DICTATED BY: GLORIA CHAVEZ MD DATE/TIME DICTATED:02/19/17942 TELECINE OPERATOR:BALDEMAR DATE/TIME TRANSCRIBED:02/19/17942 CONFIDENTIAL, DO NOT COPY WITHOUT APPROPRIATE AUTHORIZATION. <Electronically signed in Other Vendor System> SIGNED BY: GLORIA CHAVEZ MD 02/19/1749 CXR Impression: PATIENT: ESME CARIAS PRESENT AGE: 86 PATIENT ACCOUNT NO: [id number] : [birth year] LOCATION: [facility] [place] ORDERING PHYSICIAN: CLAIR KAUR MD SERVICE DATE: 02/19/17 EXAM TYPE: RAD - XRY-CHEST XRAY, ONE VIEW ONLY EXAMINATION:\H\ \N\XR CHEST CLINICAL INFORMATION: Status post fall with hip pain. COMPARISON: CXR from 02/11/2017 TECHNIQUE: AP view of the chest was obtained. FINDINGS: Again noted is the large cardiac silhouette and calcified mitral valve annulus. Pulmonary vascular congestion has worsened. There is peribronchial interstitial thickening. Also, there is peripheral septal thickening. Findings are consistent with cardiogenic pulmonary edema. Again noted are small bilateral pleural effusions. Thoracic aorta is calcified. There is a right chest medication port with central catheter terminating in the distal superior vena cava. No acute skeletal findings. IMPRESSION: Cardiomegaly, pulmonary vascular congestion, interstitial edema and small pleural effusions. DICTATED BY: GLORIA CAHVEZ MD DATE/TIME DICTATED:08/28 TELECINE OPERATOR:DUMONT DATE/TIME TRANSCRIBED:02/19/17945 CONFIDENTIAL, DO NOT COPY WITHOUT APPROPRIATE AUTHORIZATION. <Electronically signed in Other Vendor System> SIGNED BY: GLORIA CHAVEZ MD 02/19/17 0953 Initial ED EKG: rate (78), AFIB Prior EKG: unchanged Comments: 02/19/2017 9:36:41 AM PT EVALUATED BY DR DIEZ IN ED. D/W DR MADDOX WHO REVIEWED XRAYS. REQUESTS REPEAT LATERAL. PT WILL NEED PINNING. Departure Departure Disposition: STILL A PATIENT Condition: Stable Clinical Impression Primary Impression: Impacted fracture of right hip Qualifiers: Encounter type: initial encounter Fracture type: closed Qualified Code: S72.091A - Other fracture of head and neck of right femur, initial encounter for closed fracture Secondary Impressions: Atrial fibrillation Qualifiers: Atrial fibrillation type: chronic Qualified Code: I48.2 - Chronic atrial fibrillation Cardiomegaly Congestive heart failure Qualifiers: Congestive heart failure type: unspecified congestive heart failure type Congestive heart failure chronicity: chronic Qualified Code: I50.9 - Heart failure, unspecified Dizziness Referrals: NATI ALBARRAN MD (PCP/Family) Departure Forms: Customer Survey General Discharge Information Prescriptions: Current Visit Scripts Furosemide (Lasix) 1 TAB PO DAILY 30 Days Reason to Stop at ADM: hypotension, dehydration Admission Note Spoke With: CHARY MAYBERRY,[facility] Documentation of Exam: Documentation of any treatments & extenuating circumstances including Concerns Regarding Discharge (functional status, medication knowledge or non-compliance, living conditions, etc.) that warrant an admission rather than observation: Patient presents with an impacted and slightly displaced right hip fracture status post fall. She will require orthopedic consultation and operative intervention to stabilize the fracture. She has a complex past medical history including atrial fibrillation, COPD, CHF, coronary artery disease and hypertension. In addition she has a history of non-Hodgkin's lymphoma. She cannot ambulate as this might displace her hip fracture complicating her clinical picture. Since she will require operative intervention, medical clearance should be obtained. Given her advanced age and multiple medical comorbidities I feel her treatment and recovery will be prolonged and complicated, requiring multiple day hospitalization. She should also be treated with intravenous narcotic pain relievers to provide adequate pain control. Critical Care Note Critical Care Note Critical Care Time: 30-74 min
--- NOTE | 2017-02-19 08:59 | NUR ---
PT XRAY VIA STRETCHER AT THIS TIME.
--- NOTE | 2017-02-19 09:49 | RADIOLOGY REPORT ---
EXAMINATION: XR HIP, RIGHT CLINICAL INFORMATION: Pain after fall. COMPARISON: 01/20/2017 TECHNIQUE: Two views of the right hip. FINDINGS: There is a mildly displaced fracture through the subcapital region of the femoral neck with femoral shaft fragment exhibiting slight superolateral displacement. The visualized pelvic bones are intact. There is degenerative subarticular sclerosis and osteophyte formation at the inferior aspect of the right sacroiliac joint. IMPRESSION: Mildly displaced fracture of the right femoral neck.
--- NOTE | 2017-02-19 09:53 | RADIOLOGY REPORT ---
EXAMINATION:\H\ \N\XR CHEST CLINICAL INFORMATION: Status post fall with hip pain. COMPARISON: CXR from 02/11/2017 TECHNIQUE: AP view of the chest was obtained. FINDINGS: Again noted is the large cardiac silhouette and calcified mitral valve annulus. Pulmonary vascular congestion has worsened. There is peribronchial interstitial thickening. Also, there is peripheral septal thickening. Findings are consistent with cardiogenic pulmonary edema. Again noted are small bilateral pleural effusions. Thoracic aorta is calcified. There is a right chest medication port with central catheter terminating in the distal superior vena cava. No acute skeletal findings. IMPRESSION: Cardiomegaly, pulmonary vascular congestion, interstitial edema and small pleural effusions.
--- NOTE | 2017-02-19 09:56 | NUR ---
R CHEST DIVYA CATH ACCESSED, LABS OBTAINED, (2 SST, 1 PURPLE, 1 PINK, 1 SCHAEFFER, 1 BLUE)
--- NOTE | 2017-02-19 09:57 | NUR ---
ANXIOUS, MEDICATED FOR PAIN. GROVER INSERTED.
[2017-02-19 10:13] LABS: ABSOLUTE BASOPHIL COUNT 0 /CUMM (0.0-0.2); ABSOLUTE EOSINOPHIL COUNT 0.1 /CUMM (0.0-0.7); ABSOLUTE GRANULOCYTE CT 7.1 /CUMM (1.4-6.5); ABSOLUTE LYMPH COUNT 5.9 /CUMM (1.2-3.4); ABSOLUTE MONOCYTE COUNT 1.4 /CUMM (0.10-0.60); BASOPHIL % 0.2 % (0.0-2.0); EOSINOPHIL % 0.6 % (0-5); GRANULOCYTE % 48.8 % (42.2-75.2); HEMATOCRIT 35.6 % (37-47); MEAN CORPUSCULAR HGB CONC 32.3 G/DL (33.0-37.0); MEAN PLATELET VOLUME 8.5 FL (7.4-10.4); PLATELET COUNT 249 /CUMM (130-400); RBC DISTRIBUTION WIDTH 17.8 % (11.5-14.5); RED BLOOD CELL CT 3.96 /CUMM (4.20-5.40)
--- NOTE | 2017-02-19 10:16 | History & Physical ---
DEMETRA MAYBERRY,BONILLA 02/19/17 1007: General Information and HPI MD Statement: I have seen and personally examined ESME CARIAS and documented this H& P. The patient is a 86 year old F who presented with a patient stated chief complaint of [Rt. hip pain]. 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 hip pain s/p fall. Around 7:10am today, she was getting out of bed when she had dizziness and then fell down on the ground. She had 10/10 sharp pain and she was unable to get up. She didn't hit her head, and she denies loss of consciousness. She c/o dry mouth. After getting IV morphine in ED, her Rt. pain is 8/10. She denies chest pain, shortness of breath, abdominal pain/n/v. She denies any dysuria, constipation/diarrhea. She was scheduled to see Dr. Neal this month, and she follows Dr. Stevenson for NHL. Allergies/Medications Allergies: Coded Allergies: Penicillins (RASH 12/16/16) acetaminophen (BURNING FEELING IN STOMACH 12/16/16) animal dander (PER MAR 01/14/17) garlic (UNKNOWN, LISTED ON JAN W NO REACTION NOTED 02/19/17) latex (SORES 12/16/16) mold (UNKNOWN 12/16/16) onion (UNKNOWN - PER MAR NO REACTION NOTED 02/19/17) Sulfa (Sulfonamide Antibiotics) (GI 12/16/16) aspirin (MILD GI 12/16/16) diazepam (GI 12/16/16) oxycodone (GI, MIGRAINE 12/16/16) propoxyphene (GI 12/16/16) Uncoded Allergies: COLOGNE (PER PT UPSETS HER WITH THE SMELL 10/17/16) HAIR SPRAY (PER PT UPSETS HER WITH THE SMELL 10/17/16) SMOKE (PER PT CANT STAND SMELLS IT UPSETS HER 10/17/16) TOBACCO (PER MAR 01/14/17) Past History Travel History Traveled to [place] past 21 day No Medical History Neurological: syncope EENT: submandibular masses Cardiovascular: AFIB, CAD (s/p stent), CHF, diastolic CHF, rheumatic fever Respiratory: asthma, COPD, obstructive sleep apnea Gastrointestinal: GERD, DIVERTICULOSIS Hepatic: NONE Renal: kidney stones Musculoskeletal: osteoarthritis, sciatica, chondrocalcinosis Psychiatric: report of suicide attempt as a young woman by son Endocrine: hypothyroidism Blood Disorders: PERNICIOUS ANEMIA B12 deficiency Cancer(s): non-hodgkin lymphoma, CHEMO INJECTION GIVEN History of MRSA: No History of VRE: No History of CDIFF: No Surgical History Surgical History: cholecystectomy, hernia repair-inguinal, hysterectomy (benign) , bladder surgery ECHO Results (as available) Date of last Echo 10/18/16 EF% 65 Past Family/Social History Family History Relations & Conditions if any MOTHER (hypertension, coronary artery disease and stroke). Relation not specified for: FH: coronary artery disease FH: hypertension FH: stroke Psychosocial History Where do you live? Extended [facility] Facility Services at Home: Home Health Aide, Nursing Primary Language: Gambian ETOH Use: denies use Living Will? no Power of Steward/Stewardess Smoke Room/HCP? yes Name of POA/HCP: Pt's son, Juliocesar Carias. Functional Ability ADLs Independent: dressing, eating, toileting, bathing. Ambulation: independent IADLs Independent: shopping, housework, finances, food prep, telephone, transportation , medication admin. Review of Systems Review of Systems Constitutional: Denies: chills, fever, weakness. EENTM: Reports: no symptoms. Cardiovascular: Denies: chest pain, orthopena, palpitations, peripheral edema, syncope. Respiratory: Denies: cough, short of breath, sputum production, wheezing. GI: Denies: abdominal pain, nausea, vomiting. Genitourinary: Denies: dysuria, pain. Musculoskeletal: Reports: see HPI, joint pain. Skin: Reports: no symptoms. Neurological/Psychological: Reports: no symptoms. Hematologic/Endocrine: Reports: see HPI. Immunologic/Allergic: Reports: see HPI. Exam & Diagnostic Data Last 24 Hrs of Vital Signs/I&O Vital Signs Date Time Temp Pulse Resp B/P Pulse O2 O2 Flow FiO2 Ox Delivery Rate 02/19 0839 91 Nasal 2.0L Cannula 02/19 0831 97.1 90 26 151/78 92 Nasal 2.0L Cannula Intake & Output 02/19 1600 02/19 0800 02/19 0000 Intake Total 120 Output Total Balance 120 Intake, IV 120 Patient 118 lb Weight Physical Exam General Appearance Alert, Oriented X3, Cooperative, Moderate Distress Skin No Rashes, No Significant Lesion HEENT Atraumatic, PERRLA, EOMI, dry mucosa Neck Supple, No JVD, No LAD Lymphatic Cervical nl Cardiovascular Normal S1, Normal S2, irregularly irregular, systolic murmurs Lungs bibasilar crackles Abdomen Normal Bowel Sounds, Soft, No Tenderness Neurological Normal Speech, Sensation Intact, Cranial Nerves 3-12 NL Extremities No Edema, Normal Pulses, Shortened Rt. ext Vascular Normal Pulses, Pulses Symmetrical Last 24 Hrs of Labs/Bill: Laboratory Tests 02/19/17 1000: Sodium Pending, Potassium Pending, Chloride Pending, Carbon Dioxide Pending, Anion Gap Pending, BUN Pending, Creatinine Pending, BUN/Creatinine Ratio Pending , Glucose Pending, Calcium Pending, Total Bilirubin Pending, AST Pending, ALT Pending, Alkaline Phosphatase Pending, Creatine Kinase Pending, Troponin I Pending, Total Protein Pending, Albumin Pending, Globulin Pending, Albumin/ Globulin Ratio Pending, PT Pending, INR Pending, APTT Pending, CBC w Diff Pending, WBC Pending, RBC Pending, Hgb Pending, Hct Pending, MCV Pending, MCH Pending, RDW Pending, Plt Count Pending, MPV Pending, Gran % Pending, Lymphocytes % Pending, Monocytes % Pending, Eosinophils % Pending, Basophils % Pending, Absolute Granulocytes Pending, Absolute Lymphocytes Pending, Absolute Monocytes Pending, Absolute Eosinophils Pending, Absolute Basophils Pending, PUBS MCHC Pending 02/19/17 0950: Urine Color Pending, Urine Clarity Pending, Urine pH Pending, Ur Specific [place] Pending, Urine Protein Pending, Urine Ketones Pending, Urine Nitrite Pending, Urine Bilirubin Pending, Urine Urobilinogen Pending, Ur Leukocyte Esterase Pending, Ur Microscopic Pending, Urine Hemoglobin Pending, Urine Glucose Pending Microbiology 02/19 1000 URINE ROUT: Urine Culture - RECD Diagnostic Data EKG Results A.fib with rate 78, QTc 442, Q waves V1-2 CXR Results Cardiomegaly, pulmonary vascular congestion, interstitial edema and small pleural effusions. Other Results Rt. hip x-ray: Mildly displaced fracture of the right femoral neck. 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 displaced femoral neck fracture s/p s/p fall. 1. Rt. displaced femoral neck fracture s/p fall: Patient has hx of CAD & CHF with RCRI index score 2 revealing 6.6% risk of major cardiac event perioperatively. Patient needs medical optimization before the surgery. Will get cardiology consult from Dr. Neal. Will monitor pt on telemetry floor with multiple cardiac issues. NPO after MN for surgical procedure per orthpedic surgery. Pain control per pain pathway. 2. A.fib on xarelto: hold po xaretol prior to surgery. Last dose was 02/18 at 5pm. Will give IV heparin before surgery. Continue rate control with cardizem 30mg bid and metoprolol 25mg bid as long as her BP is tolerable. 3. HFpEF with PAH: Pt has pulmonary congestion from CXR with crackles on lung exam. IV lasix 40mg was given once. However, her BP came down to 84/48, so IV NS 250cc bolus was given. After bolus her BP came up to 111/61. Likely pt is dehydrated, so will hold po lasix. Give gentle IV hydration 50cc/hr for now. Her most recent echo was done in . Will follow up cardio consult for pre-op optimazation. 4. Asthma/COPD: She's not on home oxygen (only as needed). Stable now, oxygen support to keep O2 > 92%, TRC, nebs as needed. 5. hypothyroidism: c/w home dose levothyroxine 0.125mg daily. 6. 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 She has patent Rt. port-a-cath. I spoke with Dr. Stevenson regarding her NHL management. She will follow up Dr. Stevenson as outpt once she's stabilized. 7. Transaminitis: Pt has hx of stage 4 NHL with bone mets and had chemotherapy before, will check liver US for any mass, trend LFTs. DVT ppx: she was on xarelto, hold for operation tomorrow. IV heparin, ALPS. DNR/I, but pt will be full code when she's getting surgery. Pain pathway NPO after MN for surgery. As Ranked By This Provider Problem List: 1. Impacted fracture of right hip Qualifiers Encounter type: initial encounter Fracture type: closed Qualified Code: S72.091A - Other fracture of head and neck of right femur, initial encounter for closed fracture 2. Atrial fibrillation Qualifiers Atrial fibrillation type: chronic Qualified Code: I48.2 - Chronic atrial fibrillation 3. CHF (congestive heart failure) 4. Asthma 5. COPD 6. HYPOTHYROIDISM 7. Non Hodgkin's lymphoma Core Measures/Miscellaneous Acute Coronary Syndrome ACS Diagnosis: No Cerebrovascular Accident CVA/TIA Diagnosis: No Congestive Heart Failure CHF Diagnosis: Yes Date of most recent Echo: 10/18/16 Last Known EF %: 65 BECCA/ARB for EF <40%: Yes Comment: Not on BECCA/ARB as HF>65% Venous Thromboembolism VTE Risk Factors: Age > 40, Estrogen, Trauma major or lower ext [facility] prophylaxis d/t: No contraindications No VTE Pharm Prophylaxis d/t: Surgical contraindication VTE Diagnosis: No VTE Type: NONE VTE Confirmed by (Test): NONE Severe Sepsis Severe Sepsis Present: No Septic Shock Septic Shock Present: No Miscellaneous Documentation Attending Case Discussed With: KEYA DIEZ MD Primary Care Physician: NATI ALBARRAN MD Patient sees these Specialists Dr. Ángel Stevenson Level of Patient Care: Telemetry Consults Needed: Consulting Specialty: Cardiology Consulting Physician: Dr. Neal Reason for Consult: Pre-op evaluation KEYA DIEZ MD 02/19/17 3624: General Information and HPI Allergies/Medications Home Med list Bisacodyl 10 MG SUPP.RECT 1 SUP RC DAILY PRN CONSTIPATION (Reported) Cholecalciferol (Vitamin D3) (Vitamin D3) 5,000 UNIT TABLET 1 TAB PO DAILY SUPPLEMENT (Reported) Cyanocobalamin (Vitamin B-12) (Cyanocobalamin Injection) 1,000 MCG/1 ML VIAL 1 ML IM Q30D SUPPLEMENT (Reported) Reason to Stop at ADM: monthly Dicyclomine Hydrochloride (Bentyl) 10 MG CAPSULE 20 MG PO 4 TIMES/DAY stomach spasms Diltiazem HCl (Cardizem) 30 MG TABLET 30 MG PO BID heart Dronabinol (Marinol) 2.5 MG CAPSULE 1 CAP PO BID appetite (Reported) Reason to Stop at ADM: not needed, will give IV fluid Estradiol (Climara) 0.0375 MG/24 HOUR PATCH.TDWK 1 PATCH TOP QWED HRT ( Reported) Reason to Stop at ADM: not needed in hospital Furosemide (Lasix) 40 MG TABLET 1 TAB PO DAILY heart failure Reason to Stop at ADM: hypotension, dehydration Guaifenesin/Dextromethorphan (Tussin Dm Cough Syrup) 100 MG-10 MG/5 ML SYRUP 10 ML PO Q4H PRN COUGH (Reported) Reason to Stop at ADM: no symptoms Hydromorphone HCl 2 MG TABLET 1 TAB PO Q12H PRN PAIN (Reported) Reason to Stop at ADM: pain pathway Levothyroxine Sodium (Synthroid) 125 MCG TABLET 1 TAB PO QHS THYROID ( Reported) Librax (Librax Capsule) 5 MG-2.5 MG CAPSULE 1 CAP PO DAILY PRN ABD PAIN ( Reported) Reason to Stop at ADM: not needed Lidocaine 5 % ADH..PATCH 1 PAT TOP DAILY PRN PAIN (Reported) Reason to Stop at ADM: pain pathway Magnesium Hydroxide (Milk Of Magnesia) 400 MG/5 ML ORAL.SUSP 30 ML PO DAILY PRN CONSTIPATION (Reported) Metoprolol Tartrate 25 MG TABLET 25 MG PO BID heart Mirabegron (Myrbetriq) 25 MG TAB.ER.24H 1 TAB PO DAILY BLADDER (Reported) Multivitamin (Multiple Vitamins) 1 EACH TABLET 1 TAB PO DAILY SUPPLEMENT ( Reported) Na Phos,M-B/Na Phos,Di-Ba (Fleet Enema) 19 GRAM-7 GRAM/118 ML ENEMA 1 E RC DAILY PRN CONSTIPATION (Reported) Reason to Stop at ADM: Not needed Ondansetron (Zofran Odt) 4 MG TAB.RAPDIS 1 TAB SL Q8H PRN NAUSEA (Reported) Pantoprazole Sodium (Protonix) 40 MG TABLET.DR 1 TAB PO BID GI (Reported) Potassium Chloride (Klor-Con M20) 20 MEQ TAB.ER.PRT 1 TAB PO DAILY SUPPLEMENT (Reported) Prochlorperazine Maleate 10 MG TABLET 1 TAB PO Q6 PRN N/V (Reported) Reason to Stop at ADM: not needed Rivaroxaban (Xarelto) 15 MG TABLET 1 TAB PO 1700 BLOOD THINNER (Reported) Reason to Stop at ADM: Pre-op Simethicone 80 MG TAB.CHEW 1 TAB PO Q4 HRS NEEDED PRN GAS/INDIGESTION ( Reported) Reason to Stop at ADM: not needed Tiotropium [place] (Spiriva) 18 MCG CAP.W.DEV 1 CAP INH DAILY BREATHING PROBLEMS (Reported) Tramadol HCl 50 MG TABLET 1 TAB PO Q4H PRN PAIN (Reported) Trazodone HCl 50 MG TABLET 25 MG PO BID PRN anxiety/agitation (Reported) Attending MD Review Statement Attending Statement Attending MD Statement: examined this patient, discuss w/resident/PA/ASSOCIATE PROFESSOR OF SOCIOLOGY, agreed w/resident/PA/ASSOCIATE PROFESSOR OF SOCIOLOGY, discussed with family, reviewed EMR data (avail) Attending Assessment/Plan: Patient complaining of severe right hip pain on evaluation this morning. General Appearance: Alert, No Acute Distress Skin: Grossly normal HEENT: PEERLA Neck: Supple, No JVD Cardiovascular: Regular Rate, Normal S1, Normal S2, No Murmurs Lungs: Clear to Auscultation, Normal Air Movement Abdomen: Soft non tender abdomen, normal bowel sounds Neurological: Normal Speech, Strength at 5/5 X4 Ext, Cranial Nerves 3-12 NL, Reflexes 2+ Extremities: Right groin tenderness and pedal edema Vascular: Normal Pulses Assessment 86-year-old with history of atrial fibrillation on xarelto, coronary disease, history of CHF, pulmonary hypertension, rheumatic fever, asthma, COPD, hypothyroidism, history of B-cell lymphoma with bone marrow metastasis status post chemotherapy and chronic kidney disease presenting status post mechanical fall resulting in mildly displaced right hip fracture. She does have leukocytosis Is Likely Reactive and Also Noted She Has Abnormal LFTs That Is of Unclear Significance. Based on her prior blood work it seems as though liver function is gradually worsening. It is possible elevated LFTs is secondary to recent chemotherapy. However we will check right upper quadrant ultrasound and trend liver enzymes. In the meantime from cardiac viewpoint patient is stable and her A. fib is well controlled. We will hold xarelto in anticipation of surgery and start patient on heparin drip pending the procedure. Patient is otherwise stable from medical viewpoint for surgery and she will not need further cardiac workup. Plan Patient is cleared for surgery Check right upper quadrant ultrasound Cardiology evaluation Hold xarelto Start heparin drip IV morphine Keep nothing by mouth after midnight IV hydration Continue other home medications Current Medications Sig/Timi Start time Last Medication Dose Route Stop Time Status Admin Acetaminophen 325 MG Q6P PRN 02/19 1145 AC PO Acetaminophen 0 .STK-MED ONE 02/19 0936 DC IV Acetaminophen 1,000 MG ONCE ONE 02/19 0900 DC 02/19 N/A 1 UNIT IV 02/19 0914 0955 Albuterol Sulfate 3 ML Q4P PRN 02/19 1715 UNV INH Albuterol Sulfate 3 ML Q4H PRN 02/19 1330 AC INH Bisacodyl 10 MG DAILY PRN 02/19 1600 AC VA Cholecalciferol 1,000 IU DAILY 02/19 1300 AC PO Dextrose/Sodium 1,000 ML Q20H 02/19 1400 AC Chloride IV Dicyclomine HCl 20 MG 4 TIMES/DAY PRN 02/19 1330 AC PO Diltiazem HCl 30 MG BID 02/19 2200 AC PO Furosemide 0 .STK-MED ONE 02/19 1111 DC IV Furosemide 40 MG ONCE ONE 02/19 1045 DC 02/19 IV 02/19 1046 1112 Hydromorphone HCl 1 MG Q6P PRN 02/19 1130 DC PO Levothyroxine Sodium 0.125 MG DAILY AC 02/20 0700 DC PO Levothyroxine Sodium 0.125 MG 2100 02/19 2100 AC PO Magnesium Hydroxide 30 ML DAILY PRN 02/19 1615 AC PO Metoprolol Tartrate 25 MG BID 02/19 2200 AC PO Mirabegron 25 MG DAILY 02/20 1000 AC PO Morphine Sulfate 2 MG Q4P PRN 02/19 1130 AC IV Morphine Sulfate 0 .STK-MED ONE 02/19 0936 DC .ROUTE Morphine Sulfate 2 MG ONCE ONE 02/19 0900 DC 02/19 IV 02/19 0901 0955 Multivitamins 1 TAB DAILY 02/19 1558 AC Therapeutic PO Omeprazole 40 MG BID 02/19 1100 AC PO Ondansetron HCl 4 MG Q8H PRN 02/19 1600 AC PO Oxycodone/ 1 TAB Q6P PRN 02/19 1130 DC Acetaminophen PO Polyethylene Glycol 17 GM DAILY 02/21 1000 AC PO Potassium Chloride 20 MEQ DAILY 02/19 1311 AC PO Senna/Docusate Sodium 1 TAB BID 02/19 2200 AC PO Sodium Chloride 1,000 ML Q20H 02/19 1315 DC IV Sodium Chloride 250 ML BOLUS ONE 02/19 1215 DC IV 02/19 1314 Tiotropium [place] 1 PUF DAILY 02/19 1253 AC INH Tramadol HCl 50 MG Q4H PRN 02/19 1315 AC PO Trazodone HCl 25 MG BID PRN 02/19 1600 AC PO Laboratory Tests 02/19 02/19 1000 0950 Chemistry Sodium (137 - 145 mmol/L) 137 Potassium (3.5 - 5.1 mmol/L) 3.7 Chloride (98 - 107 mmol/L) 94 L Carbon Dioxide (22 - 30 mmol/L) 33 H Anion Gap (5 - 16) 10 BUN (7 - 17 mg/dL) 13 Creatinine (0.5 - 1.0 mg/dL) 0.9 Estimated GFR (>60 ml/min) 59 L BUN/Creatinine Ratio (7 - 25 %) 14.4 Glucose (65 - 99 mg/dL) 189 H Calcium (8.4 - 10.2 mg/dL) 9.6 Total Bilirubin (0.2 - 1.3 mg/dL) 0.8 AST (14 - 36 U/L) 110 H ALT (9 - 52 U/L) 56 H Alkaline Phosphatase (<127 U/L) 239 H Creatine Kinase (30 - 135 U/L) < 20 L Troponin I (< 0.11 ng/ml) < 0.01 Total Protein (6.3 - 8.2 g/dL) 6.5 Albumin (3.5 - 5.0 g/dL) 3.6 Globulin (1.9 - 4.2 gm/dL) 2.9 Albumin/Globulin Ratio (1.1 - 2.2 %) 1.2 Coagulation PT (9.4 - 12.5 SEC) 17.8 H INR (0.90 - 1.19) 1.70 H APTT (25 - 37 SEC) 37 Hematology CBC w Diff NO MAN DIFF REQ WBC (4.8 - 10.8 /CUMM) 14.6 H RBC (4.20 - 5.40 /CUMM) 3.96 L Hgb (12.0 - 16.0 G/DL) 11.5 L Hct (37 - 47 %) 35.6 L MCV (81.0 - 99.0 FL) 90.0 MCH (27.0 - 31.0 PG) 29.0 RDW (11.5 - 14.5 %) 17.8 H Plt Count (130 - 400 /CUMM) 249 MPV (7.4 - 10.4 FL) 8.5 Gran % (42.2 - 75.2 %) 48.8 Lymphocytes % (20.5 - 51.1 %) 40.7 Monocytes % (1.7 - 9.3 %) 9.7 H Eosinophils % (0 - 5 %) 0.6 Basophils % (0.0 - 2.0 %) 0.2 Absolute Granulocytes (1.4 - 6.5 /CUMM) 7.1 H Absolute Lymphocytes (1.2 - 3.4 /CUMM) 5.9 H Absolute Monocytes (0.10 - 0.60 /CUMM) 1.4 H Absolute Eosinophils (0.0 - 0.7 /CUMM) 0.1 Absolute Basophils (0.0 - 0.2 /CUMM) 0 PUBS MCHC (33.0 - 37.0 G/DL) 32.3 L Urines Urinalysis LIGHT H Urine Color (YEL,AMB,STR) YEL Urine Clarity (CLEAR) HAZY H Urine pH (5.0 - 8.0) 6.5 Ur Specific [place] (1.001 - 1.035) 1.015 Urine Protein (NEG,<30 MG/DL) TRACE H Urine Ketones (NEG) NEG Urine Nitrite (NEG) NEG Urine Bilirubin (NEG) NEG Urine Urobilinogen (0.1 - 1.0 EU/dl) 1.0 Ur Leukocyte Esterase (NEG) TRACE H Ur Microscopic SEDIMENT EXAMINED Urine RBC (0 - 5 /HPF) RARE Urine WBC (0 - 2 /HPF) 3-5 H Ur Epithelial Cells (NONE,FEW) MOD H Urine Bacteria (NEG/NONE) MANY H Hyaline Casts (0/LPF) 1-3 H Urine Hemoglobin (NEG) NEG Urine Glucose (N MG/DL) NEG Vital Signs Date Time Temp Pulse Resp B/P Pulse O2 O2 Flow FiO2 Ox Delivery Rate 02/19 1703 Nasal 2.0L Cannula 02/19 1650 98 Nasal 2.0L Cannula 04/10 1500 Nasal 2.0L Cannula 02/19 1454 97.5 84 18 94/52 97 Nasal 2.0L Cannula 02/19 1300 78 18 111/61 99 Room Air 2.0L 02/19 1217 97.2 72 18 88/50 96 02/19 1153 88 18 84/48 95 Nasal 2.0L Cannula 02/19 0839 91 Nasal 2.0L Cannula 02/19 0831 97.1 90 26 151/78 92 Nasal 2.0L Cannula
[2017-02-19 10:20] LABS: PT 17.8 SEC (9.4-12.5); PTT 37 SEC (25-37)
--- NOTE | 2017-02-19 10:30 | NUR ---
SURGICAL PA HERE TO EVALUATE. (CAMILA).
[2017-02-19 10:33] LABS: WHITE BLOOD CELL COUNT 14.6 /CUMM (4.8-10.8)
--- NOTE | 2017-02-19 11:25 | Cons- Orthopedic ---
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 The patient reportedly fell, provoked by dizziness, while getting dressed this morning. She was unable to get up off the floor due to pain. Denies loss of consciousness. Denies head injury. The MAR from [facility] indicates her last dose of xarelto was last night, 02/18/17, around 5pm. Allergies/Medications Current Medications: Current Medications Sig/Timi Start time Last Medication Dose Route Stop Time Status Admin Acetaminophen 0 .STK-MED ONE 02/19 0936 DC IV Acetaminophen 1,000 MG ONCE ONE 02/19 0900 DC 02/19 N/A 1 UNIT IV 02/19 0914 0955 Furosemide 0 .STK-MED ONE 02/19 1111 DC IV Furosemide 40 MG ONCE ONE 02/19 1045 DC 02/19 IV 02/19 1046 1112 Morphine Sulfate 0 .STK-MED ONE 02/19 0936 DC .ROUTE Morphine Sulfate 2 MG ONCE ONE 02/19 0900 DC 02/19 IV 02/19 0901 0955 Omeprazole 40 MG BID 02/19 1100 AC PO Past History Medical History Neurological: syncope EENT: submandibular masses Cardiovascular: AFIB, CAD (s/p stent), CHF, diastolic CHF, rheumatic fever Respiratory: asthma, COPD, obstructive sleep apnea Gastrointestinal: GERD, DIVERTICULOSIS Hepatic: NONE Renal: kidney stones Musculoskeletal: osteoarthritis, sciatica, chondrocalcinosis Psychiatric: report of suicide attempt as a young woman by son Endocrine: hypothyroidism Blood Disorders: PERNICIOUS ANEMIA B12 deficiency Cancer(s): non-hodgkin lymphoma, CHEMO INJECTION GIVEN Surgical History Pertinent Surgical History: cholecystectomy, hernia repair-inguinal, hysterectomy (benign), bladder surgery Family History Relations & Conditions If Any: MOTHER (hypertension, coronary artery disease and stroke). Relation not specified for: FH: coronary artery disease FH: hypertension FH: stroke Psychosocial History Where Do You Live? [facility] Services at Home: Home Health Aide, Nursing Primary Language: Amharic ETOH Use: denies use Living Will? no Power of Reporting Coordinator/HCP? yes Name of POA/HCP: Pt's son, Juliocesar Saldana. Functional Ability ADLs Independent: dressing, eating, toileting, bathing. Ambulation: independent IADLs Independent: shopping, housework, finances, food prep, telephone, transportation , medication admin. Review of Systems Review of Systems: admits: hip and groin discomfort, dizziness prior to her fall denies: chest pain, shortness of breath, difficulty urinating Exam & Diagnostic Data Vital Signs and I&O Vital Signs Date Time Temp Pulse Resp B/P Pulse O2 O2 Flow FiO2 Ox Delivery Rate 02/19 839 91 Nasal 2.0L Cannula 02/19 831 97.1 90 26 151/78 92 Nasal 2.0L Cannula Intake & Output 02/19 1600 02/19 0802/19 0000 02/18 1600 02/18 0800 02/18 0000 Intake Total 120 Output Total Balance 120 Intake, IV 120 Patient 118 lb Weight Physical Exam: General - lethargic. comfortable. no acute distress. Lungs - somewhat tachypneic and labored. Cardiac - irreg irreg Abdomen - soft. nontender. - calderón currently in place Extremities - warm bilaterally. trace edema present bilaterally. able to move ankles and toes on the fractured leg. sensation intact. palpable pulses distally. Last 24 Hours of Labs: Laboratory Tests 02/19 02/19 1000 0950 Chemistry Sodium (137 - 145 mmol/L) 137 Potassium (3.5 - 5.1 mmol/L) 3.7 Chloride (98 - 107 mmol/L) 94 L Carbon Dioxide (22 - 30 mmol/L) 33 H Anion Gap (5 - 16) 10 BUN (7 - 17 mg/dL) 13 Creatinine (0.5 - 1.0 mg/dL) 0.9 Estimated GFR (>60 ml/min) 59 L BUN/Creatinine Ratio (7 - 25 %) 14.4 Glucose (65 - 99 mg/dL) 189 H Calcium (8.4 - 10.2 mg/dL) 9.6 Total Bilirubin (0.2 - 1.3 mg/dL) 0.8 AST (14 - 36 U/L) 110 H ALT (9 - 52 U/L) 56 H Alkaline Phosphatase (<127 U/L) 239 H Creatine Kinase (30 - 135 U/L) < 20 L Troponin I (< 0.11 ng/ml) < 0.01 Total Protein (6.3 - 8.2 g/dL) 6.5 Albumin (3.5 - 5.0 g/dL) 3.6 Globulin (1.9 - 4.2 gm/dL) 2.9 Albumin/Globulin Ratio (1.1 - 2.2 %) 1.2 Coagulation PT (9.4 - 12.5 SEC) 17.8 H INR (0.90 - 1.19) 1.70 H APTT (25 - 37 SEC) 37 Hematology CBC w Diff NO MAN DIFF REQ WBC (4.8 - 10.8 /CUMM) 14.6 H RBC (4.20 - 5.40 /CUMM) 3.96 L Hgb (12.0 - 16.0 G/DL) 11.5 L Hct (37 - 47 %) 35.6 L MCV (81.0 - 99.0 FL) 90.0 MCH (27.0 - 31.0 PG) 29.0 RDW (11.5 - 14.5 %) 17.8 H Plt Count (130 - 400 /CUMM) 249 MPV (7.4 - 10.4 FL) 8.5 Gran % (42.2 - 75.2 %) 48.8 Lymphocytes % (20.5 - 51.1 %) 40.7 Monocytes % (1.7 - 9.3 %) 9.7 H Eosinophils % (0 - 5 %) 0.6 Basophils % (0.0 - 2.0 %) 0.2 Absolute Granulocytes (1.4 - 6.5 /CUMM) 7.1 H Absolute Lymphocytes (1.2 - 3.4 /CUMM) 5.9 H Absolute Monocytes (0.10 - 0.60 /CUMM) 1.4 H Absolute Eosinophils (0.0 - 0.7 /CUMM) 0.1 Absolute Basophils (0.0 - 0.2 /CUMM) 0 PUBS MCHC (33.0 - 37.0 G/DL) 32.3 L Urines Urinalysis LIGHT H Urine Color (YEL,AMB,STR) YEL Urine Clarity (CLEAR) HAZY H Urine pH (5.0 - 8.0) 6.5 Ur Specific [place] (1.001 - 1.035) 1.015 Urine Protein (NEG,<30 MG/DL) TRACE H Urine Ketones (NEG) NEG Urine Nitrite (NEG) NEG Urine Bilirubin (NEG) NEG Urine Urobilinogen (0.1 - 1.0 EU/dl) 1.0 Ur Leukocyte Esterase (NEG) TRACE H Ur Microscopic SEDIMENT EXAMINED Urine RBC (0 - 5 /HPF) RARE Urine WBC (0 - 2 /HPF) 3-5 H Ur Epithelial Cells (NONE,FEW) MOD H Urine Bacteria (NEG/NONE) MANY H Hyaline Casts (0/LPF) 1-3 H Urine Hemoglobin (NEG) NEG Urine Glucose (N MG/DL) NEG Imaging Results: EXAMINATION: XR HIP, RIGHT CLINICAL INFORMATION: Pain after fall. COMPARISON: 01/20/2017 TECHNIQUE: Two views of the right hip. FINDINGS: There is a mildly displaced fracture through the subcapital region of the femoral neck with femoral shaft fragment exhibiting slight superolateral displacement. The visualized pelvic bones are intact. There is degenerative subarticular sclerosis and osteophyte formation at the inferior aspect of the right sacroiliac joint. IMPRESSION: Mildly displaced fracture of the right femoral neck. DICTATED BY: GLORIA CHAVEZ MD DATE/TIME DICTATED:02/19/17942 PEACE OFFICER:BALDEMAR DATE/TIME TRANSCRIBED:02/19/17942 Other Results: EXAMINATION:\H\ \N\XR CHEST CLINICAL INFORMATION: Status post fall with hip pain. COMPARISON: CXR from 02/11/2017 TECHNIQUE: AP view of the chest was obtained. FINDINGS: Again noted is the large cardiac silhouette and calcified mitral valve annulus. Pulmonary vascular congestion has worsened. There is peribronchial interstitial thickening. Also, there is peripheral septal thickening. Findings are consistent with cardiogenic pulmonary edema. Again noted are small bilateral pleural effusions. Thoracic aorta is calcified. There is a right chest medication port with central catheter terminating in the distal superior vena cava. No acute skeletal findings. IMPRESSION: Cardiomegaly, pulmonary vascular congestion, interstitial edema and small pleural effusions. 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 limit narcotics if able. the patient and her son Don understand and agree with plan pending clearance, plan for surgery is pinning by tomorrow, 02/20/17, time to be determined, but requesting heparin drip to be held @ 10am d/w Copies To: AVIS MAYBERRY,NATI Winslow; OTIS MAYBERRY PhD,SAEID Beavers Consult Acknowledgment - Thank you for your consult request. TAN MAYBERRYKITTY 02/19/17 1410: General Information and HPI Allergies/Medications Allergies: Coded Allergies: Penicillins (RASH 12/16/16) acetaminophen (BURNING FEELING IN STOMACH 12/16/16) animal dander (PER MAR 01/14/17) garlic (UNKNOWN, LISTED ON JAN W NO REACTION NOTED 02/19/17) latex (SORES 12/16/16) mold (UNKNOWN 12/16/16) onion (UNKNOWN - PER MAR NO REACTION NOTED 02/19/17) Sulfa (Sulfonamide Antibiotics) (GI 12/16/16) aspirin (MILD GI 12/16/16) diazepam (GI 12/16/16) oxycodone (GI, MIGRAINE 12/16/16) propoxyphene (GI 12/16/16) Uncoded Allergies: COLOGNE (PER PT UPSETS HER WITH THE SMELL 10/17/16) HAIR SPRAY (PER PT UPSETS HER WITH THE SMELL 10/17/16) SMOKE (PER PT CANT STAND SMELLS IT UPSETS HER 10/17/16) TOBACCO (PER 01/14/17) Home Med List: Bisacodyl 10 MG SUPP.RECT 1 SUP RC DAILY PRN CONSTIPATION (Reported) Cholecalciferol (Vitamin D3) (Vitamin D3) 5,000 UNIT TABLET 1 TAB PO DAILY SUPPLEMENT (Reported) Cyanocobalamin (Vitamin B-12) (Cyanocobalamin Injection) 1,000 MCG/1 ML VIAL 1 ML IM Q30D SUPPLEMENT (Reported) Reason to Stop at ADM: monthly Dicyclomine Hydrochloride (Bentyl) 10 MG CAPSULE 20 MG PO 4 TIMES/DAY stomach spasms Diltiazem HCl (Cardizem) 30 MG TABLET 30 MG PO BID heart Dronabinol (Marinol) 2.5 MG CAPSULE 1 CAP PO BID UNKNOWN (Reported) Estradiol (Climara) 0.0375 MG/24 HOUR PATCH.TDWK 1 PATCH TOP QWED HRT ( Reported) Reason to Stop at ADM: not needed in hospital Folic Acid 0.8 MG TABLET 1 TAB PO BID SUPPLEMENT (Reported) Furosemide (Lasix) 40 MG TABLET 1 TAB PO DAILY heart failure Guaifenesin/Dextromethorphan (Tussin Dm Cough Syrup) 100 MG-10 MG/5 ML SYRUP 10 ML PO Q4H PRN COUGH (Reported) Hydromorphone HCl 2 MG TABLET 1 TAB PO Q12H PRN PAIN (Reported) Levothyroxine Sodium (Synthroid) 125 MCG TABLET 1 TAB PO QHS THYROID ( Reported) Librax (Librax Capsule) 5 MG-2.5 MG CAPSULE 1 CAP PO DAILY PRN ABD PAIN ( Reported) Lidocaine 5 % ADH..PATCH 1 PAT TOP DAILY PRN PAIN (Reported) Magnesium Hydroxide (Milk Of Magnesia) 400 MG/5 ML ORAL.SUSP 30 ML PO DAILY PRN CONSTIPATION (Reported) Metoprolol Tartrate 25 MG TABLET 25 MG PO BID heart Mirabegron (Myrbetriq) 25 MG TAB.ER.24H 1 TAB PO DAILY BLADDER (Reported) Multivitamin (Multiple Vitamins) 1 EACH TABLET 1 TAB PO DAILY SUPPLEMENT ( Reported) Na Phos,M-B/Na Phos,Di-Ba (Fleet Enema) 19 GRAM-7 GRAM/118 ML ENEMA 1 E RC DAILY PRN CONSTIPATION (Reported) Ondansetron (Zofran Odt) 4 MG TAB.RAPDIS 1 TAB SL Q8H PRN NAUSEA (Reported) Pantoprazole Sodium (Protonix) 40 MG TABLET.DR 1 TAB PO BID GI (Reported) Potassium Chloride (Klor-Con M20) 20 MEQ TAB.ER.PRT 1 TAB PO DAILY SUPPLEMENT (Reported) Prochlorperazine Maleate 10 MG TABLET 1 TAB PO Q6 PRN N/V (Reported) Rivaroxaban (Xarelto) 15 MG TABLET 1 TAB PO 1700 BLOOD THINNER (Reported) Reason to Stop at ADM: Pre-op Simethicone 80 MG TAB.CHEW 1 TAB PO Q4 HRS NEEDED PRN GAS/INDIGESTION ( Reported) Tiotropium [place] (Spiriva) 18 MCG CAP.W.DEV 1 CAP INH DAILY BREATHING PROBLEMS (Reported) Tramadol HCl 50 MG TABLET 1 TAB PO Q4H PRN PAIN (Reported) Trazodone HCl 50 MG TABLET 25 MG PO BID INCREASED ANXIETY/AGITATION (Reported ) Assessment/Plan Assessment/Plan Agree with above, plan for right hip percutaneous pinning pending clearance. Consult Acknowledgment - Thank you for your consult request.
--- NOTE | 2017-02-19 12:17 | NUR ---
BP 88/50 AT THIS TIME, PT ALERT AND ORIENTED AND LIGHTS DIMMED DUE TO COMPLAINTS OF THE LIGHT BEING TO BRIGHT , FLUIDS INFUSING AT 250 ML/HR.
--- NOTE | 2017-02-19 12:27 | NUR ---
DR. BERG HERE TO EVALUATE.
[2017-02-19] MEDS ORDERED: EVENING PRIMR1000 MG PO (13:20)
[2017-02-19] MEDS ORDERED: TRAZODONE HCL50 M1 PO (13:23)
[2017-02-19] MEDS ORDERED: LIBRAX CAPSULE1 EACH PO (13:26)
[2017-02-19] MEDS ORDERED: MILK OF MA400 MG/52 PO (13:30)
[2017-02-19] MEDS ORDERED: ZOFRAN ODT4 M1 SL (13:30)
[2017-02-19] MEDS ORDERED: BISACODYL10 M1 RC (13:31)
[2017-02-19] MEDS ORDERED: FLEET ENEMA133 ML RC (13:31)
[2017-02-19] MEDS ORDERED: MARINOL2.5 MG PO (13:32)
--- NOTE | 2017-02-19 13:40 | NUR ---
PT HAS BED ASSIGNMENT 173-1. BED BOARD STATES ROOM IN NOT READY. RN NOTIFIED.
--- NOTE | 2017-02-19 13:45 | RADIOLOGY REPORT ---
EXAMINATION: XR HIP, RIGHT CLINICAL INFORMATION: Femoral neck fracture. Additional lateral radiograph requested to better evaluate the fracture displacement. COMPARISON: Radiographs of the right hip from 8:55 AM TECHNIQUE: Crosstable lateral radiograph of the right hip was obtained. FINDINGS/IMPRESSION: Femoral neck fracture is suboptimally visualized on this projection. No evidence of anterior or posterior displacement of the femoral shaft fragment
--- NOTE | 2017-02-19 14:03 | NUR ---
REPORT TO TELEMETRY UNIT.
[2017-02-19 14:54] VITALS: BP 94/52
[2017-02-19] MEDS ORDERED: LASIX40 M1 PO (15:53)
--- NOTE | 2017-02-19 16:27 | Admission Certification ---
Admission Certification Certification Statement - As attending physician, I certify that at the time of - admission, based on clinical presentation, severity of - symptoms, need for further diagnostic testing and - therapeutic interventions, and risk of adverse outcomes - without in-hospital treatment, in my clinical assessment, - this patient requires an acute hospital stay for a minimum - of two nights or longer. I have also considered psychsocial - factors such as support system, advanced age, financial - issues, cognitive issues, and failed out-patient treatments, - past re-admission history, safety of patient, and lack of - compliance as applicable. Specific rationale supporting this admission is: right hip fracture
--- NOTE | 2017-02-19 20:29 | Cons- Cardiology ---
General Information and HPI Consulting Request Date of Consult: 02/19/17 Requested By: KEYA DIEZ MD History of Present Illness: Shayna Madrid is an 86 year old female who carries a history of coronary artery disease, atrial fibrillation, and asthma. 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 Metastatses have been noted in her scapula and acetabulum. Malvin was brought to the ER after a fall that resulted in a right hip fracture. She now anticipates surgery. The patient admits to passing out after arising from bed. There was a brief period of dizziness followed by loss of consciousness. She has not been eating and drinking well lately. She does not have chest discomfort, shortness of breath or palpitations. There is severe pain upon moving her leg. Shayna Madrid does feel persistently tired since her diagnosis of Lymphoma and since beginning chemotherapy. The lymphoma also gives her diffuse achiness with pain in her back, epgastric region chest and abdomen. She has also lost weight. At her baseline, Shayna has mild exertional shortness of breath without orthopnea. She will also become transiently lightheaded if arising quickly from a sitting or supine position although this symptom appears to also be exacerbated by turning her head and I think are more consistent with a labyrinthitis. It should be recalled that she had an enlarged salivary gland on the right lower jaw that turned out to be a lymphoma. Shayna Madrid was taken off her Lasix last week due to concerns of dehydration. At that time she was not eating much. Her last echocardiogram showed a normal EF of 70% with biatrial enlargement, moderate mitral, tricuspid and pulmonic regurgitation and mild to moderate aortic regurgitation. Her aortic valve showed moderate stenosis. She also had moderate mitral stenosis with mild pulmonary hypertension. Due to prior lightheadedness we discontinued lisinopril and decreased her metoprolol to 50mg BID. Her lightheadedness is improved but not gone. She was last admitted to for evaluation of an atypical chest discomfort and SOB in May 2013. She ruled out for myocardial infarction at that time. Shayna Madrid was very concerned about the possibility of aortic stenosis and therefore she saw Dr. Gustabo Barone who reassured her that she did not have any significant aortic stenosis and did not need any intervention for her aortic valve at this point in time. On occasion, the patient will report some epigastric discomfort radiating up to her chest and she has complained of some atypical nonexertional chest discomfort behind her left breast which often occurs at rest. In consideration of the above symptoms, I did pursue a stress test which showed a small area of apical ischemia. I did opt to pursue cardiac catheterization for an unequivocal diagnosis. This procedure was performed in December of 2012 and showed the following anatomy: The left main demonstrated luminal irregularities. The LAD has a 30% non-flow limiting mid lesion with luminal irregularities throughout the rest of its course. The left circumflex has luminal irregularities in the AV groove as well as in the obtuse marginal II. There is a very small obtuse marginal one with a stable 80% ostial stenosis. The RCA is dominant with luminal irregularities up to 30-40% in the ostial region of this vessel. Left ventriculography showed an overall EF of 60% with mild to moderate mitral regurgitation. It is my feeling that the patient had nonobstructive coronary artery disease and medical therapy has been pursued. The patient's most recent echo shows a normal EF of 60% with mild biatrial enlargement. She ahs moderate eccentric mitral regurgitation, mild tricuspid regurgitation, and mild to moderate aortic insufficiency. Mild pulmonic regurgitation was also noted. Allergies/Medications Allergies: Coded Allergies: Penicillins (RASH 12/16/16) acetaminophen (BURNING FEELING IN STOMACH 12/16/16) animal dander (PER 01/14/17) garlic (UNKNOWN, LISTED ON JAN W NO REACTION NOTED 02/19/17) latex (SORES 12/16/16) mold (UNKNOWN 12/16/16) onion (UNKNOWN - PER MAR NO REACTION NOTED 02/19/17) Sulfa (Sulfonamide Antibiotics) (GI 12/16/16) aspirin (MILD GI 12/16/16) diazepam (GI 12/16/16) oxycodone (GI, MIGRAINE 12/16/16) propoxyphene (GI 12/16/16) Uncoded Allergies: COLOGNE (PER PT UPSETS HER WITH THE SMELL 10/17/16) HAIR SPRAY (PER PT UPSETS HER WITH THE SMELL 10/17/16) SMOKE (PER PT CANT STAND SMELLS IT UPSETS HER 10/17/16) TOBACCO (PER 01/14/17) Home Med List: Bisacodyl 10 MG SUPP.RECT 1 SUP RC DAILY PRN CONSTIPATION (Reported) Cholecalciferol (Vitamin D3) (Vitamin D3) 5,000 UNIT TABLET 1 TAB PO DAILY SUPPLEMENT (Reported) Cyanocobalamin (Vitamin B-12) (Cyanocobalamin Injection) 1,000 MCG/1 ML VIAL 1 ML IM Q30D SUPPLEMENT (Reported) Reason to Stop at ADM: monthly Dicyclomine Hydrochloride (Bentyl) 10 MG CAPSULE 20 MG PO 4 TIMES/DAY stomach spasms Diltiazem HCl (Cardizem) 30 MG TABLET 30 MG PO BID heart Dronabinol (Marinol) 2.5 MG CAPSULE 1 CAP PO BID appetite (Reported) Reason to Stop at ADM: not needed, will give IV fluid Estradiol (Climara) 0.0375 MG/24 HOUR PATCH.TDWK 1 PATCH TOP QWED HRT ( Reported) Reason to Stop at ADM: not needed in hospital Furosemide (Lasix) 40 MG TABLET 1 TAB PO DAILY heart failure Reason to Stop at ADM: hypotension, dehydration Guaifenesin/Dextromethorphan (Tussin Dm Cough Syrup) 100 MG-10 MG/5 ML SYRUP 10 ML PO Q4H PRN COUGH (Reported) Reason to Stop at ADM: no symptoms Hydromorphone HCl 2 MG TABLET 1 TAB PO Q12H PRN PAIN (Reported) Reason to Stop at ADM: pain pathway Levothyroxine Sodium (Synthroid) 125 MCG TABLET 1 TAB PO QHS THYROID ( Reported) Librax (Librax Capsule) 5 MG-2.5 MG CAPSULE 1 CAP PO DAILY PRN ABD PAIN ( Reported) Reason to Stop at ADM: not needed Lidocaine 5 % ADH..PATCH 1 PAT TOP DAILY PRN PAIN (Reported) Reason to Stop at ADM: pain pathway Magnesium Hydroxide (Milk Of Magnesia) 400 MG/5 ML ORAL.SUSP 30 ML PO DAILY PRN CONSTIPATION (Reported) Metoprolol Tartrate 25 MG TABLET 25 MG PO BID heart Mirabegron (Myrbetriq) 25 MG TAB.ER.24H 1 TAB PO DAILY BLADDER (Reported) Multivitamin (Multiple Vitamins) 1 EACH TABLET 1 TAB PO DAILY SUPPLEMENT ( Reported) Na Phos,M-B/Na Phos,Di-Ba (Fleet Enema) 19 GRAM-7 GRAM/118 ML ENEMA 1 E RC DAILY PRN CONSTIPATION (Reported) Reason to Stop at ADM: Not needed Ondansetron (Zofran Odt) 4 MG TAB.RAPDIS 1 TAB SL Q8H PRN NAUSEA (Reported) Pantoprazole Sodium (Protonix) 40 MG TABLET.DR 1 TAB PO BID GI (Reported) Potassium Chloride (Klor-Con M20) 20 MEQ TAB.ER.PRT 1 TAB PO DAILY SUPPLEMENT (Reported) Prochlorperazine Maleate 10 MG TABLET 1 TAB PO Q6 PRN N/V (Reported) Reason to Stop at ADM: not needed Rivaroxaban (Xarelto) 15 MG TABLET 1 TAB PO 1700 BLOOD THINNER (Reported) Reason to Stop at ADM: Pre-op Simethicone 80 MG TAB.CHEW 1 TAB PO Q4 HRS NEEDED PRN GAS/INDIGESTION ( Reported) Reason to Stop at ADM: not needed Tiotropium [place] (Spiriva) 18 MCG CAP.W.DEV 1 CAP INH DAILY BREATHING PROBLEMS (Reported) Tramadol HCl 50 MG TABLET 1 TAB PO Q4H PRN PAIN (Reported) Trazodone HCl 50 MG TABLET 25 MG PO BID PRN anxiety/agitation (Reported) Review of Systems Review of Systems: fatigue Past History Travel History Traveled to [place] past 21 day No Medical History Blood Transfusion Hx: No Neurological: syncope EENT: submandibular masses Cardiovascular: AFIB, CAD (s/p stent), CHF, diastolic CHF, rheumatic fever Respiratory: asthma, COPD, obstructive sleep apnea Gastrointestinal: GERD, DIVERTICULOSIS Hepatic: NONE Renal: kidney stones Musculoskeletal: osteoarthritis, sciatica, chondrocalcinosis Psychiatric: report of suicide attempt as a young woman by son Endocrine: hypothyroidism Blood Disorders: PERNICIOUS ANEMIA B12 deficiency Cancer(s): non-hodgkin lymphoma, CHEMO INJECTION GIVEN Surgical History Surgical History: cholecystectomy, hernia repair-inguinal, hysterectomy (benign) , bladder surgery Family History Relations & Conditions If Any: MOTHER (hypertension, coronary artery disease and stroke). Relation not specified for: FH: coronary artery disease FH: hypertension FH: stroke Psychosocial History Where Do You Live? Extended [facility] Services at Home: Home Health Aide, Nursing Primary Language: Turkmen Smoking Status: Never Smoked ETOH Use: denies use Living Will? no Power of Bar Gauger And Lubricator Tender/HCP? yes Name of POA/HCP: Pt's son, Juliocesar Saldana. Functional Ability ADLs Independent: dressing, eating, toileting, bathing. Ambulation: independent IADLs Independent: shopping, housework, finances, food prep, telephone, transportation , medication admin. ECHO Results (as available) Date of last Echo 10/18/16 EF% 65 Exam & Diagnostic Data Vital Signs and I&O Vital Signs Date Time Temp Pulse Resp B/P Pulse O2 O2 Flow FiO2 Ox Delivery Rate 02/19 1703 Nasal 2.0L Cannula 02/19 1650 98 Nasal 2.0L Cannula 02/19 1600 Nasal 2.0L Cannula 02/19 1500 Nasal 2.0L Cannula 02/19 1454 97.5 84 18 94/52 97 Nasal 2.0L Cannula 02/19 1300 78 18 111/61 99 Room Air 2.0L 02/19 1217 97.2 72 18 88/50 96 02/19 1153 88 18 84/48 95 Nasal 2.0L Cannula 02/19 0839 91 Nasal 2.0L Cannula 02/19 0831 97.1 90 26 151/78 92 Nasal 2.0L Cannula Intake & Output 02/19 1600 02/19 0800 02/19 0000 02/18 1600 02/18 0800 02/18 0000 Intake Total 375 Output Total 550 Balance -175 Intake, IV 375 Output, Urine 550 Patient 118 lb Weight Physical Exam: General: WD/ WN female in NAD; alert and oriented x 3 HEENT: NC/AT, PERRL, EOMI, clear oropharynx Neck: no JVD, no carotid bruit Heart: irregularly irregular, no murmur Lungs: clear bilaterally Abdomen: soft, NT, +ve bowel sounds Extremties: no edema Assessment/Plan Assessment/Plan * Shayna Madrid appears to have passed out upon arising with a fall resulting in a righthip fracture. She has not been eating or drinking well and likely was dehydrated. Orthostatic blood pressure measurements were not obtained however the patient was given lasix with a drop in her BP into the 80's consistent with volume depletion. The patient is breathing well with no evidence of decompensated congestive heart failure. Hold off on diuretics but continue metoprolol and Diltiazem for rate control in the setting of atrial fibrillation. * This patient has a normal EF with no evidence of decompensated CHF. She is a reasonable candidate for surgery. She is currently on Xarelto but has not taken her blood thinner today and can pursue surgery tomorrow. Consult Acknowledgment - Thank you for your consult request.
--- NOTE | 2017-02-19 20:49 | ULTRASOUND REPORT ---
EXAMINATION: US ABDOMEN LIMITED CLINICAL INFORMATION: Adnexal stage IV with bone metastases. Transaminitis. COMPARISON: CT abdomen and pelvis 02/07/2017. TECHNIQUE: Real-time imaging of the right upper quadrant abdominal viscera. FINDINGS: PANCREAS: Normal. LIVER: Normal. The liver demonstrates normal size, contour and echogenicity. No focal lesion or intrahepatic biliary duct dilatation. GALLBLADDER: The gallbladder has been surgically removed. COMMON BILE DUCT: The common bile duct measures 1.0 cm in diameter and is probably within normal limits considering patient is status post cholecystectomy. RIGHT KIDNEY: Normal. No hydronephrosis. No renal calculi or focal parenchymal lesions. The kidney measures 8.8 cm in maximum dimension. Incidentally suspected is a small pleural effusion. IMPRESSION: Unremarkable limited abdomen ultrasound.
[2017-02-19 22:58] VITALS: BP 90/50
[2017-02-20 03:04] VITALS: BP 98/58
[2017-02-20 04:29] LABS: ABSOLUTE BASOPHIL COUNT 0 /CUMM (0.0-0.2); ABSOLUTE EOSINOPHIL COUNT 0.6 /CUMM (0.0-0.7); ABSOLUTE MONOCYTE COUNT 1.1 /CUMM (0.10-0.60); BASOPHIL % 0.4 % (0.0-2.0)
[2017-02-20 04:40] LABS: ABSOLUTE LYMPH COUNT 1.5 /CUMM (1.2-3.4); EOSINOPHIL % 8.4 % (0-5); GRANULOCYTE % 55.7 % (42.2-75.2); MEAN CORPUSCULAR HGB CONC 32.4 G/DL (33.0-37.0); MEAN CORPUSCULAR VOLUME 89.5 FL (81.0-99.0); MEAN PLATELET VOLUME 8.4 FL (7.4-10.4); PLATELET COUNT 176 /CUMM (130-400); RBC DISTRIBUTION WIDTH 18.8 % (11.5-14.5)
[2017-02-20 04:42] LABS: WHITE BLOOD CELL COUNT 7.2 /CUMM (4.8-10.8)
[2017-02-20 04:43] LABS: HEMATOCRIT 27.8 % (37-47)
[2017-02-20 04:53] LABS: PT 13.5 SEC (9.4-12.5)
[2017-02-20 04:58] LABS: PTT > 120 SEC (25-37)
--- NOTE | 2017-02-20 06:42 | PN- Orthopedic ---
Surgical Brief Attending Note Brief Attending Note: Resting comfortably AVSS RLE - +EHL/FHL +sens m/l/1st DWS TTP right hip A/P - Right hip impacted femoral neck fracture -plan for right hip percutaneous pinning -NPO -Hold anticoagulation prior to OR -plan for later this afternoon
[2017-02-20 08:00] VITALS: BP 96/56
--- NOTE | 2017-02-20 08:22 | PN- Housestaff ---
Subjective Follow-up For: Rt. hip fracture A.jerald on IV heparin HFpEF Complaints: no complaints Tele-Events Since Last Visit: Santos with rate 77-85 Subjective: Patient was seen and examined at bedside. She c/o Rt. hip pain /10 with current medication. She denies any chest pain or shortnes of breath. She is getting D51/2 NS @50cc/hr, IV heaprin at bedside. Review of Systems Constitutional: Denies: chills, fever, malaise. EENTM: Reports: no symptoms. Cardiovascular: Denies: chest pain, orthopena, palpitations, peripheral edema. Respiratory: Denies: cough, short of breath, sputum production, wheezing. Gastrointestinal: Denies: abdominal pain, nausea, vomiting. Genitourinary: Reports: no symptoms. Musculoskeletal: Reports: see HPI, joint pain. Skin: Reports: no symptoms. Neurological/Psychological: Reports: no symptoms. Hematologic/Endocrine: Reports: see HPI. Immunologic/Allergic: Reports: see HPI. Objective Last 24 Hrs of Vital Signs/I&O Vital Signs Date Time Temp Pulse Resp B/P Pulse O2 O2 Flow FiO2 Ox Delivery Rate 02/20 0754 96 Nasal 2.0L Cannula 02/20 0304 97.8 75 18 98/58 98 Nasal Cannula 02/20 0000 96 Nasal 2.0L Cannula 02/19 2258 98.8 78 20 90/50 96 Nasal 2.0L Cannula 02/19 2223 78 90/60 02/19 2223 78 90/60 02/19 1703 Nasal 2.0L Cannula 02/19 1650 98 Nasal 2.0L Cannula 02/19 1600 Nasal 2.0L Cannula 02/19 1500 Nasal 2.0L Cannula 02/19 1454 97.5 84 18 94/52 97 Nasal 2.0L Cannula 02/19 1300 78 18 111/61 99 Room Air 2.0L 02/19 1217 97.2 72 18 88/50 96 02/19 1153 88 18 84/48 95 Nasal 2.0L Cannula 02/19 0839 91 Nasal 2.0L Cannula 02/19 0831 97.1 90 26 151/78 92 Nasal 2.0L Cannula Intake & Output 02/20 1600 02/20 0800 02/20 0000 Intake Total 470 924 Output Total 150 350 Balance 320 574 Intake, IV 420 444 Intake, Oral 50 480 Number 0 0 Bowel Movements Output, Urine 150 350 Patient 137 lb Weight Physical Exam General Appearance: Alert, Oriented X3, Cooperative, Mild Distress Skin: No Significant Lesion HEENT: Atraumatic, PERRLA, EOMI, Mucous Membr. moist/pink Neck: Supple, No LAD Lymphatic: Cervical nl Cardiovascular: Normal S1, Normal S2, irregularly irregular, systolic murmurs Lungs: decreased breathing sound Abdomen: Normal Bowel Sounds, Soft, RLQ, LLQ mild tenderness Neurological: Normal Speech, Sensation Intact, Cranial Nerves 3-12 NL Extremities: Rt. ant chest port-a-cath Vascular: Normal Pulses, Pulses Symmetrical Current Medications: Current Medications Sig/Timi Start time Last Medication Dose Route Stop Time Status Admin Acetaminophen 325 MG Q6P PRN 02/19 1145 AC PO Acetaminophen 0 .STK-MED ONE 02/19 0936 DC IV Acetaminophen 1,000 MG ONCE ONE 02/19 0900 DC 02/19 N/A 1 UNIT IV 02/19 0914 0955 Albuterol Sulfate 3 ML Q4P PRN 02/19 1715 AC INH Albuterol Sulfate 3 ML Q4H PRN 02/19 1330 AC INH Bisacodyl 10 MG DAILY PRN 02/19 1600 AC VT Cholecalciferol 1,000 IU DAILY 02/19 1300 AC PO Dextrose/Sodium 1,000 ML Q20H 02/19 1400 DC 02/19 Chloride IV 2224 Dicyclomine HCl 20 MG 4 TIMES/DAY PRN 02/19 1330 AC PO Diltiazem HCl 30 MG BID 02/19 2200 AC PO Furosemide 0 .STK-MED ONE 02/19 1111 DC IV Furosemide 40 MG ONCE ONE 02/19 1045 DC 02/19 IV 02/19 1046 1112 Heparin Sodium 25,000 UNIT Q24H 02/19 1845 AC 02/19 (Porcine) IV 02/20 1000 2047 Sodium Chloride 500 ML Hydromorphone HCl 1 MG Q6P PRN 02/19 1130 DC PO Levothyroxine Sodium 0.125 MG DAILY AC 02/20 0700 DC PO Levothyroxine Sodium 0.125 MG 0600 02/20 0600 AC 02/20 PO 0615 Levothyroxine Sodium 0.125 MG 2100 02/19 2100 DC PO Magnesium Hydroxide 30 ML DAILY PRN 02/19 1615 AC PO Metoprolol Tartrate 25 MG BID 02/19 2200 AC PO Mirabegron 25 MG DAILY 02/20 1000 AC PO Morphine Sulfate 2 MG Q4P PRN 02/19 1130 AC 02/20 IV 0044 Morphine Sulfate 0 .STK-MED ONE 02/19 0936 DC .ROUTE Morphine Sulfate 2 MG ONCE ONE 02/19 0900 DC 02/19 IV 02/19 0901 0955 Multivitamins 1 TAB DAILY 02/19 1558 AC Therapeutic PO Omeprazole 40 MG BID 02/19 1100 AC 02/19 PO 2223 Ondansetron HCl 4 MG Q8H PRN 02/19 1600 AC PO Oxycodone/ 1 TAB Q6P PRN 02/19 1130 DC Acetaminophen PO Polyethylene Glycol 17 GM DAILY 02/21 1000 AC PO Potassium Chloride 40 MEQ Q20H 02/20 0830 UNVr Dextrose/Sodium 1,000 ML IV Chloride Potassium Chloride 10 MEQ Q1H 02/20 0815 UNVr IV 02/20 0916 Potassium Chloride 20 MEQ DAILY 02/19 1311 AC PO Senna/Docusate Sodium 1 TAB BID 02/19 2200 AC 02/19 PO 2223 Sodium Chloride 1,000 ML Q20H 02/19 1315 DC IV Sodium Chloride 250 ML BOLUS ONE 02/19 1215 DC IV 02/19 1314 Tiotropium [place] 1 PUF DAILY 02/19 1253 AC INH Tramadol HCl 50 MG Q4H PRN 02/19 1315 AC PO Trazodone HCl 25 MG BID PRN 02/19 1600 AC PO Last 24 Hrs of Lab/Bill Results Last 24 Hrs of Labs/Mics: Laboratory Tests 02/20/17 0406: Anion Gap 6, Estimated GFR 59 L, BUN/Creatinine Ratio 12.2, Total Bilirubin 0.7 , Direct Bilirubin 0.3, AST 54 H, ALT 58 H, Alkaline Phosphatase 175 H, Total Protein 5.2 L, Albumin 2.8 L, PT 13.5 H, INR 1.29 H, APTT > 120 *H, CBC w Diff NO MAN DIFF REQ, RBC 3.10 L, MCV 89.5, MCH 29.0, RDW 18.8 H, MPV 8.4, Gran % 55.7, Lymphocytes % 20.6, Monocytes % 14.9 H, Eosinophils % 8.4 H, Basophils % 0.4, Absolute Granulocytes 4.0, Absolute Lymphocytes 1.5, Absolute Monocytes 1.1 H, Absolute Eosinophils 0.6, Absolute Basophils 0, PUBS MCHC 32.4 L 02/20/17 0252: APTT Cancelled 02/19/17 1000: Anion Gap 10, Estimated GFR 59 L, BUN/Creatinine Ratio 14.4, Glucose 189 H, Calcium 9.6, Total Bilirubin 0.8, AST 110 H, ALT 56 H, Alkaline Phosphatase 239 H, Creatine Kinase < 20 L, Troponin I < 0.01, Total Protein 6.5, Albumin 3.6, Globulin 2.9, Albumin/Globulin Ratio 1.2, PT 17.8 H, INR 1.70 H, APTT 37, CBC w Diff NO MAN DIFF REQ, RBC 3.96 L, MCV 90.0, MCH 29.0, RDW 17.8 H, MPV 8.5, Gran % 48.8, Lymphocytes % 40.7, Monocytes % 9.7 H, Eosinophils % 0.6, Basophils % 0.2, Absolute Granulocytes 7.1 H, Absolute Lymphocytes 5.9 H, Absolute Monocytes 1.4 H, Absolute Eosinophils 0.1, Absolute Basophils 0, PUBS MCHC 32.3 L 02/19/17 0950: Urinalysis LIGHT H, Urine Color YEL, Urine Clarity HAZY H, Urine pH 6.5, Ur Specific [place] 1.015, Urine Protein TRACE H, Urine Ketones NEG, Urine Nitrite NEG, Urine Bilirubin NEG, Urine Urobilinogen 1.0, Ur Leukocyte Esterase TRACE H , Ur Microscopic SEDIMENT EXAMINED, Urine RBC RARE, Urine WBC 3-5 H, Ur Epithelial Cells MOD H, Urine Bacteria MANY H, Hyaline Casts 1-3 H, Urine Hemoglobin NEG, Urine Glucose NEG Microbiology 02/19 2210 BLOOD: Blood Culture - RECD 02/19 1914 BLOOD: Blood Culture - CAN Cancelled: SPECIMEN NOT RECEIVED IN LABORATORY 02/19 1000 URINE ROUT: Urine Culture - RECD Lines/Diet/Fluids Fluids/Infusions: D5 1/2 NS@50cc/hr Catheters/Tubes: calderón Calderón Still Needed? Yes Lines: peripheral lines, Rt. 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 displaced femoral neck fracture s/p fall. 1. Rt. displaced femoral neck fracture s/p fall: Patient has hx of CAD & CHF with RCRI index score 2 revealing 6.6% risk of major cardiac event perioperatively. Patient needs medical optimization before the surgery. She is stable to proceed to surgery. Cardiology consult is appreciated. D/C IV heparin around 10am before surgery. Will follow up orthopedic surgery for surgery plan. 2. A.fib on xarelto: hold po xaretol prior to surgery. Last dose was 02/18 at 5pm. IV heparin was initiated yesterday 8pm and it will be discontinued around 10am. PO cardizem 30mg bid and metoprolol 25mg bid were held due to hypotension overnight. Rate is in control now. 3. HFpEF with PAH: Continue holding po lasix. Continue gentle IV hydration 50cc/ hr for while pt is NPO. I/Os + 720 within 24 hrs. Her most recent echo showed EF > 65% in . Continue monitor pt on telemetry. 4. Asthma/COPD: She's not on home oxygen (only as needed). Stable now, oxygen support to keep O2 > 92%, TRC, nebs as needed. 5. hypothyroidism: c/w home dose levothyroxine 0.125mg daily. 6. 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 She has patent Rt. port-a-cath. Stable. ALP is elevated likely from bone metasis. 7. Transaminitis: most likely from chemotherapy. Ultrasound abdomen was unremarkable. LFT is trending down. 8. Hypokalemia/hyponatremia: Likely secondary to D51/2 NS -> will switch to K 40mEq D5NS @ 50cc/hr then d/c after the surgery. DVT ppx: IV heparin, ALPS DNR/I, but pt will be full code when she's getting surgery. Pain pathway NPO after MN for surgery. Problem List: 1. Impacted fracture of right hip 2. Atrial fibrillation 3. Congestive heart failure 4. Transaminitis Pain Ratin Pain Location: Rt. hip fracture Pain Goal: Pain 4 or less Pain Plan: tyrenol, percocet, IV morphine Tomorrow's Labs & Rationales: CBC - on IV heparin BEP - Hypokalemia DVT/Prophylaxis: pharmacological Consulting Request: Consulting Specialty: Cardiology Consulting Physician: Dr. Neal Reason for Consult: Pre-op evaluation Discharge Plan Stable for Discharge? No
--- NOTE | 2017-02-20 09:38 | PN- Att Addend ---
Attending Addendum Attending Brief Note Patient complaining of right hip pain on evaluation this morning. General Appearance: Alert, No Acute Distress Skin: Grossly normal HEENT: PEERLA Neck: Supple, No JVD Cardiovascular: Regular Rate, Normal S1, Normal S2, No Murmurs Lungs: Clear to Auscultation, Normal Air Movement Abdomen: Soft non tender abdomen, normal bowel sounds Neurological: Normal Speech, Strength at 5/5 X4 Ext, Cranial Nerves 3-12 NL, Reflexes 2+ Extremities: Right groin tenderness and pedal edema Vascular: Normal Pulses Assessment Patient is stable from cardiac viewpoint for the surgery however her blood pressure has remained borderline low although patient is asymptomatic. We will hold her beta durga this morning and continue mild hydration in preparation for surgery. We will also replete her potassium levels aggressively. LFTs have improved and ultrasound right upper quadrant is negative. Plan Hold beta blockers for low blood pressure Mild IV hydration Replete potassium Hold xarelto Hold heparin drip after 10 AM IV morphine when necessary pain Continue other home medications Current Medications Sig/Timi Start time Last Medication Dose Route Stop Time Status Admin Acetaminophen 325 MG Q6P PRN 02/19 1145 AC PO Albuterol Sulfate 3 ML Q4P PRN 02/19 1715 AC INH Albuterol Sulfate 3 ML Q4H PRN 02/19 1330 AC INH Bisacodyl 10 MG DAILY PRN 02/19 1600 AC RI Cholecalciferol 1,000 IU DAILY 02/19 1300 AC PO Dextrose/Sodium 1,000 ML Q20H 02/19 1400 DC 02/19 Chloride IV 2224 Dicyclomine HCl 20 MG 4 TIMES/DAY PRN 02/19 1330 AC PO Diltiazem HCl 30 MG BID 02/19 2200 AC PO Furosemide 0 .STK-MED ONE 02/19 1111 DC IV Furosemide 40 MG ONCE ONE 02/19 1045 DC 02/19 IV 02/19 1046 1112 Heparin Sodium 25,000 UNIT Q24H 02/19 1845 AC 02/19 (Porcine) IV 02/20 1000 2047 Sodium Chloride 500 ML Hydromorphone HCl 1 MG Q6P PRN 02/19 1130 DC PO Levothyroxine Sodium 0.125 MG DAILY AC 02/20 0700 DC PO Levothyroxine Sodium 0.125 MG 0600 02/20 0600 AC 02/20 PO 0615 Levothyroxine Sodium 0.125 MG 2100 02/19 2100 DC PO Magnesium Hydroxide 30 ML DAILY PRN 02/19 1615 AC PO Metoprolol Tartrate 25 MG BID 02/19 2200 AC PO Mirabegron 25 MG DAILY 02/20 1000 AC PO Morphine Sulfate 2 MG Q4P PRN 02/19 1130 AC 02/20 IV 0839 Multivitamins 1 TAB DAILY 02/19 1558 AC Therapeutic PO Omeprazole 40 MG BID 02/19 1100 AC 02/19 PO 2223 Ondansetron HCl 4 MG Q8H PRN 02/19 1600 AC PO Oxycodone/ 1 TAB Q6P PRN 02/19 1130 DC Acetaminophen PO Polyethylene Glycol 17 GM DAILY 02/21 1000 AC PO Potassium Chloride 40 MEQ Q20H 02/20 0830 AC Dextrose/Sodium 1,000 ML IV Chloride Potassium Chloride 10 MEQ Q1H 02/20 0815 DC IV 02/20 0916 Potassium Chloride 20 MEQ DAILY 02/19 1311 AC PO Senna/Docusate Sodium 1 TAB BID 02/19 2200 AC 02/19 PO 2223 Sodium Chloride 1,000 ML Q20H 02/19 1315 DC IV Sodium Chloride 250 ML BOLUS ONE 02/19 1215 DC IV 02/19 1314 Tiotropium [place] 1 PUF DAILY 02/19 1253 AC INH Tramadol HCl 50 MG Q4H PRN 02/19 1315 AC PO Trazodone HCl 25 MG BID PRN 02/19 1600 AC PO Laboratory Tests 02/20 02/20 0406 0252 Chemistry Sodium (137 - 145 mmol/L) 136 L Potassium (3.5 - 5.1 mmol/L) 3.0 L Chloride (98 - 107 mmol/L) 96 L Carbon Dioxide (22 - 30 mmol/L) 34 H Anion Gap (5 - 16) 6 BUN (7 - 17 mg/dL) 11 Creatinine (0.5 - 1.0 mg/dL) 0.9 Estimated GFR (>60 ml/min) 59 L BUN/Creatinine Ratio (7 - 25 %) 12.2 Total Bilirubin (0.2 - 1.3 mg/dL) 0.7 Direct Bilirubin (< 0.4 mg/dL) 0.3 AST (14 - 36 U/L) 54 H ALT (9 - 52 U/L) 58 H Alkaline Phosphatase (<127 U/L) 175 H Total Protein (6.3 - 8.2 g/dL) 5.2 L Albumin (3.5 - 5.0 g/dL) 2.8 L Coagulation PT (9.4 - 12.5 SEC) 13.5 H INR (0.90 - 1.19) 1.29 H APTT (25 - 37 SEC) > 120 *H Cancelled Hematology CBC w Diff NO MAN DIFF REQ WBC (4.8 - 10.8 /CUMM) 7.2 RBC (4.20 - 5.40 /CUMM) 3.10 L Hgb (12.0 - 16.0 G/DL) 9.0 L Hct (37 - 47 %) 27.8 L MCV (81.0 - 99.0 FL) 89.5 MCH (27.0 - 31.0 PG) 29.0 RDW (11.5 - 14.5 %) 18.8 H Plt Count (130 - 400 /CUMM) 176 MPV (7.4 - 10.4 FL) 8.4 Gran % (42.2 - 75.2 %) 55.7 Lymphocytes % (20.5 - 51.1 %) 20.6 Monocytes % (1.7 - 9.3 %) 14.9 H Eosinophils % (0 - 5 %) 8.4 H Basophils % (0.0 - 2.0 %) 0.4 Absolute Granulocytes (1.4 - 6.5 /CUMM) 4.0 Absolute Lymphocytes (1.2 - 3.4 /CUMM) 1.5 Absolute Monocytes (0.10 - 0.60 /CUMM) 1.1 H Absolute Eosinophils (0.0 - 0.7 /CUMM) 0.6 Absolute Basophils (0.0 - 0.2 /CUMM) 0 PUBS MCHC (33.0 - 37.0 G/DL) 32.4 L 04/10 04/10 1000 0950 Chemistry Sodium (137 - 145 mmol/L) 137 Potassium (3.5 - 5.1 mmol/L) 3.7 Chloride (98 - 107 mmol/L) 94 L Carbon Dioxide (22 - 30 mmol/L) 33 H Anion Gap (5 - 16) 10 BUN (7 - 17 mg/dL) 13 Creatinine (0.5 - 1.0 mg/dL) 0.9 Estimated GFR (>60 ml/min) 59 L BUN/Creatinine Ratio (7 - 25 %) 14.4 Glucose (65 - 99 mg/dL) 189 H Calcium (8.4 - 10.2 mg/dL) 9.6 Total Bilirubin (0.2 - 1.3 mg/dL) 0.8 AST (14 - 36 U/L) 110 H ALT (9 - 52 U/L) 56 H Alkaline Phosphatase (<127 U/L) 239 H Creatine Kinase (30 - 135 U/L) < 20 L Troponin I (< 0.11 ng/ml) < 0.01 Total Protein (6.3 - 8.2 g/dL) 6.5 Albumin (3.5 - 5.0 g/dL) 3.6 Globulin (1.9 - 4.2 gm/dL) 2.9 Albumin/Globulin Ratio (1.1 - 2.2 %) 1.2 Coagulation PT (9.4 - 12.5 SEC) 17.8 H INR (0.90 - 1.19) 1.70 H APTT (25 - 37 SEC) 37 Hematology CBC w Diff NO MAN DIFF REQ WBC (4.8 - 10.8 /CUMM) 14.6 H RBC (4.20 - 5.40 /CUMM) 3.96 L Hgb (12.0 - 16.0 G/DL) 11.5 L Hct (37 - 47 %) 35.6 L MCV (81.0 - 99.0 FL) 90.0 MCH (27.0 - 31.0 PG) 29.0 RDW (11.5 - 14.5 %) 17.8 H Plt Count (130 - 400 /CUMM) 249 MPV (7.4 - 10.4 FL) 8.5 Gran % (42.2 - 75.2 %) 48.8 Lymphocytes % (20.5 - 51.1 %) 40.7 Monocytes % (1.7 - 9.3 %) 9.7 H Eosinophils % (0 - 5 %) 0.6 Basophils % (0.0 - 2.0 %) 0.2 Absolute Granulocytes (1.4 - 6.5 /CUMM) 7.1 H Absolute Lymphocytes (1.2 - 3.4 /CUMM) 5.9 H Absolute Monocytes (0.10 - 0.60 /CUMM) 1.4 H Absolute Eosinophils (0.0 - 0.7 /CUMM) 0.1 Absolute Basophils (0.0 - 0.2 /CUMM) 0 PUBS MCHC (33.0 - 37.0 G/DL) 32.3 L Urines Urinalysis LIGHT H Urine Color (YEL,AMB,STR) YEL Urine Clarity (CLEAR) HAZY H Urine pH (5.0 - 8.0) 6.5 Ur Specific [place] (1.001 - 1.035) 1.015 Urine Protein (NEG,<30 MG/DL) TRACE H Urine Ketones (NEG) NEG Urine Nitrite (NEG) NEG Urine Bilirubin (NEG) NEG Urine Urobilinogen (0.1 - 1.0 EU/dl) 1.0 Ur Leukocyte Esterase (NEG) TRACE H Ur Microscopic SEDIMENT EXAMINED Urine RBC (0 - 5 /HPF) RARE Urine WBC (0 - 2 /HPF) 3-5 H Ur Epithelial Cells (NONE,FEW) MOD H Urine Bacteria (NEG/NONE) MANY H Hyaline Casts (0/LPF) 1-3 H Urine Hemoglobin (NEG) NEG Urine Glucose (N MG/DL) NEG Vital Signs Date Time Temp Pulse Resp B/P Pulse O2 O2 Flow FiO2 Ox Delivery Rate 02/20 0800 97.6 78 20 96/56 96 Nasal 2.0L Cannula 02/20 0754 96 Nasal 2.0L Cannula 02/20 0304 97.8 75 18 98/58 98 Nasal Cannula 02/20 0000 96 Nasal 2.0L Cannula 02/19 2258 98.8 78 20 90/50 96 Nasal 2.0L Cannula 02/19 2223 78 90/60 02/19 2223 78 90/60 02/19 1703 Nasal 2.0L Cannula 02/19 1650 98 Nasal 2.0L Cannula 02/19 1600 Nasal 2.0L Cannula 02/19 1500 Nasal 2.0L Cannula 02/19 1454 97.5 84 18 94/52 97 Nasal 2.0L Cannula 02/19 1300 78 18 111/61 99 Room Air 2.0L 02/19 1217 97.2 72 18 88/50 96 02/19 1153 88 18 84/48 95 Nasal 2.0L Cannula
[2017-02-20 14:41] VITALS: BP 102/58
[2017-02-20 16:22] VITALS: BP 106/60
--- NOTE | 2017-02-20 19:49 | Operative Report ---
Operative/Inv Procedure Report Surgery Date: 02/20/17 Name of Procedure: Right hip percutaneous pinning Pre-Operative Diagnosis: Right hip femoral neck fracture Post-Operative Diagnosis: Right hip femoral neck fracture Estimated Blood Loss: less than 50ml Surgeon/Control Engineer: Kelvin Reyes M.D. Anesthesia: local monitored anesthesi Complications: None Condition: Stable to PACU Operative Indication: This is an 86-year-old female with multiple medical comorbidities who had a fall and sustained a right hip impacted femoral neck fracture. She was cleared medically prior to surgery. Risks and benefits of the procedure were discussed with the patient at length. Risks include but are not limited to nerve damage, muscle damage, infection, blood loss, blood clots, pulmonary embolus, and even . The patient agreed to the above risks and elected to proceed with surgery. Operative/Procedure Note Note: The patient was placed supine on the operating room table. Anesthesia was induced by the anesthesia team. The patient received IV antibiotics prior to incision. A timeout was performed prior to incision. The site marking was visualized prior to incision. The patient was positioned on the fracture table with the injured extremity in a well-padded traction boot. The contralateral lower extremity was placed in flexion and abduction in a well-padded leg mahoney. Traction was applied to the injured extremity and the fracture was reduced under x-ray guidance. The lower extremitiy was prepped and draped in the normal sterile fashion. Incision was made over the vastus ridge. Fascia was incised. 3 threaded guidewires were inserted in an inverted triangle starting just proximal to the lesser trochanter. These were directed up into the femoral head. X-rays were taken to ensure adequate spacing and that the femoral head was not pierced. The wires were measured and the outer cortex was opened with a reamer. Two 6.5 mm x 90 mm partially-threaded screws were inserted in the proximal portion of the inverted triangle. An 85 mm screw was placed in the inferior aspect. This served to compress the fracture and afforded excellent stability. The guide wires were removed. The wound was copiously irrigated. The fascia was closed with #1 Vicryl suture in a simple interrupted fashion. The skin was closed with 2-0 Vicryl suture and mandy. A dry sterile dressing was placed and patient was transferred to PACU in stable condition.
--- NOTE | 2017-02-20 21:29 | PN- Cardiology ---
Subjective Subjective: * Patient is lethargic on morphine. She continues to have hip pain. No shortness of breath. * potassium 3.0 Objective Vital Signs and I&Os Vital Signs Date Time Temp Pulse Resp B/P Pulse O2 O2 Flow FiO2 Ox Delivery Rate 02/20 1622 97.9 101 20 106/60 96 Nasal 2.0L Cannula 02/20 1441 102/58 02/20 1059 93 102/60 02/20 0800 Nasal 2.0L Cannula 02/20 0800 97.6 78 20 96/56 96 Nasal 2.0L Cannula 02/20 0754 96 Nasal 2.0L Cannula 02/20 0304 97.8 75 18 98/58 98 Nasal Cannula 02/20 0000 96 Nasal 2.0L Cannula 02/19 2258 98.8 78 20 90/50 96 Nasal 2.0L Cannula 02/19 2223 78 90/60 02/19 2223 78 90/60 Intake & Output 02/20 1600 02/20 0800 02/20 0000 02/19 1600 02/19 0800 02/19 0000 Intake Total 400 470 924 375 Output Total 200 150 350 550 Balance 200 320 574 -175 Intake, IV 400 420 444 375 Intake, Oral 50 480 Number 0 0 Bowel Movements Output, Urine 200 150 350 550 Patient 137 lb 118 lb Weight Physical Exam: General: WD/ WN female in NAD; alert and oriented x 3 Neck: no JVD, no carotid bruit Heart: irregularly irregular, no murmur Lungs: clear bilaterally Extremties: no edema Assessment/Plan Assessment/Plan * Some pulmonary vascular congestion likely due to anemia in the setting of valvular diseae. She denies shortness of breath. Surgery is anticipated today. Do not overdiurese prior to surgery for mild pulmonary vascular congestion. Replete potassium to 4.0. Continue telemetry? Yes
[2017-02-20 21:41] VITALS: BP 88/50
[2017-02-20 22:00] VITALS: BP 94/54
--- NOTE | 2017-02-20 22:06 | RADIOLOGY REPORT ---
EXAMINATION: XR HIP, RIGHT C-arm imaging CLINICAL INFORMATION: ORIF right hip fracture. COMPARISON: Right hip 02/19/2017 TECHNIQUE: C-arm imaging utilized. Number of images. 2 FINDINGS: 3 orthopedic screws been placed transversely across fracture of the right femur. Fracture fragments in anatomic alignment. IMPRESSION: Internal fixation right femoral fracture.
--- NOTE | 2017-02-20 22:32 | NUR ---
PT ARRIVED FROM PACU AT 2130. DROWSY/AROUSABLE. MOANING IN PAIN. 4LNC SAT 94%. HR 100-110S AFIB ON MONITOR. BP 88/50. PT REPOSITIONED AND MADE COMFORTABLE IN BED. DSG BLOODY ON RIGHT HIP, SURGICAL PA ASSESSED AND SAID TO REINFORCE IF INCERASED BLEEDING NOTED AND TO TURN PATIENT ON THE RIGHT SIDE. ASKED RESIDENT JOSE IF STARTING ANTICOAGULATION AGAIN TONIGHT BUT HE SAID THEY WILL RESUME IN THE MORNING. ALPS IN PLACE. WILL CTM
--- NOTE | 2017-02-20 23:00 | PN- Orthopedic ---
Subjective Subjective: post op check: mild co R hip pain. mild confusion, sleepy but arousable, answering questions appropriately. Objective Vital Signs and I&Os Vital Signs Date Time Temp Pulse Resp B/P Pulse O2 O2 Flow FiO2 Ox Delivery Rate 02/200 98.7 114 26 94/54 94 Nasal 4.0L Cannula 02/20 2141 98.9 110 28 88/50 92 Nasal 3.0L Cannula 02/20 1622 97.9 101 20 106/60 96 Nasal 2.0L Cannula 02/20 1441 102/58 02/20 1059 93 102/60 02/20 0800 Nasal 2.0L Cannula 02/20 0800 97.6 78 20 96/56 96 Nasal 2.0L Cannula 02/20 0754 96 Nasal 2.0L Cannula 02/20 0304 97.8 75 18 98/58 98 Nasal Cannula 02/20 0000 96 Nasal 2.0L Cannula 02/19 2258 98.8 78 20 90/50 96 Nasal 2.0L Cannula Intake & Output 02/20 1600 02/20 0800 02/20 0000 02/19 1600 02/19 0800 02/19 0000 Intake Total 400 470 924 375 Output Total 200 150 350 550 Balance 200 320 574 -175 Intake, IV 400 420 444 375 Intake, Oral 50 480 Number 0 0 Bowel Movements Output, Urine 200 150 350 550 Patient 137 lb 118 lb Weight Physical Exam: Well-developed well-nourished no apparent distress. HEENT: Atraumatic, Neck: Supple, no lymphadenopathy Respiratory: No respiratory distress Extremities: No edema RIGHT lower extremity hip dressing in place, Dressing clean dry and intact with moderate bloody staining Mild swelling lateral thigh No shortening or rotation Hip range of motion is limited and without unexpected pain Neurovascularly intact distally Bilateral calves are supple, nontender. Neuro: Alert and oriented x3 Psych: Mood affect normal, normal memory normal judgment. Skin: Warm and dry, no rash on exposed skin Assessment/Plan Assessment/Plan Postoperative day #0 status post right hip percutaneous pinning of minimally valgus impacted femoral neck fracture -Weightbearing as tolerated with physical therapy right lower extremity, out of bed tomorrow -Anticoagulation can start in the morning -Check labs in a.m. -Check x-ray in a.m. right hip -Cleocin for 2 more doses for infectious prophylaxis -Dressing change postop day 2 -ALPS Core Measures/Miscellaneous Venous Thromboembolism VTE Risk Factors: Age > 40, Surgery VTE Contraindications: No Contraindications VTE Diagnosis: No VTE Type: NONE VTE Confirmed by (Test): NONE Beta Makenzie Is Beta Makenzie a Home Med? No Antibiotics Is Patient on Antibiotics? Yes If Yes: prophylaxis
[2017-02-21 04:39] VITALS: BP 100/58
--- NOTE | 2017-02-21 07:21 | PN- Orthopedic ---
Surgical Brief Attending Note Brief Attending Note: Resting comfortable AVSS RLE - +EHL/FHL +sens m/L/1st DWS A/P - POD 1 s/p right hip percutaneous pinning Needs right hip xrays today Continue abx for 2 doses postop May resume all anticoagulation WBAT with PT
[2017-02-21 08:00] VITALS: BP 102/60
--- NOTE | 2017-02-21 08:09 | PN- Housestaff ---
Subjective Follow-up For: rt. hip fracture POD 1 s/p right hip percutaneous pinning A.fib Complaints: sever pain Subjective: Patient seen and examined she is lying in the bed with sever pain, at the procedure site, generalized abdominal pain and pain in the left foot. She denies chest pain, N/V, no fever or chills. Review of Systems Constitutional: Reports: no symptoms. EENTM: Reports: no symptoms. Cardiovascular: Reports: no symptoms. Respiratory: Reports: no symptoms. Gastrointestinal: Reports: abdominal pain. Musculoskeletal: Reports: see HPI, joint pain. Objective Last 24 Hrs of Vital Signs/I&O Vital Signs Date Time Temp Pulse Resp B/P Pulse O2 O2 Flow FiO2 Ox Delivery Rate 02/21 08 98.9 100 16 102/60 98 Nasal 4.0L Cannula 02/21 0439 98.2 95 20 100/58 100 Nasal 4.0L Cannula 02/21 0000 94 Nasal 4.0L Cannula 02/20 2200 98.7 114 26 94/54 94 Nasal 4.0L Cannula 02/20 2141 98.9 110 28 88/50 92 Nasal 3.0L Cannula 02/20 1622 97.9 101 20 106/60 96 Nasal 2.0L Cannula 02/20 1441 102/58 02/20 1059 93 102/60 Intake & Output 02/21 1600 02/21 0800 02/21 0000 Intake Total 400 150 Output Total 150 150 Balance 250 0 Intake, IV 400 150 Intake, Oral 0 0 Number 0 0 Bowel Movements Output, Urine 150 150 Physical Exam General Appearance: Alert, Cooperative, Severe Distress Skin: No Rashes, No Breakdown HEENT: PERRLA, EOMI, Mucous Membr. moist/pink Neck: Supple, No JVD Cardiovascular: Normal S1, Normal S2 Lungs: Clear to Auscultation, Normal Air Movement Abdomen: generalized tenderness, distended, delayed bowel sound Extremities: No Edema, Normal Pulses, pain in the left foot Vascular: Normal Pulses, Pulses Symmetrical Current Medications: Current Medications Sig/Timi Start time Last Medication Dose Route Stop Time Status Admin Acetaminophen 1,000 MG ONCE ONE 02/20 2300 DC 02/21 N/A 1 UNIT IV 02/20 2314 0008 Acetaminophen 325 MG Q6P PRN 02/19 1145 AC PO Albuterol Sulfate 3 ML Q4P PRN 02/19 1715 AC INH Albuterol Sulfate 3 ML Q4H PRN 02/19 1330 AC INH Bisacodyl 10 MG DAILY PRN 02/19 1600 AC HI Cholecalciferol 1,000 IU DAILY 02/19 1300 AC PO Clindamycin 600 MG IQ8 02/21 0000 DC 02/21 Dextrose/Water 50 ML IV 02/21 0829 0010 Dicyclomine HCl 20 MG 4 TIMES/DAY PRN 02/19 1330 AC PO Diltiazem HCl 25 MG .STK-MED ONE 02/20 2006 DC IV 02/20 2007 Diltiazem HCl 30 MG BID 02/19 2200 AC 02/20 PO 1059 Fentanyl Citrate 100 MCG .STK-MED ONE 02/20 1723 DC IM 02/20 1724 Heparin Sodium 25,000 UNIT Q24H 02/21 0745 AC (Porcine) IV Sodium Chloride 500 ML Heparin Sodium 25,000 UNIT Q24H 02/19 1845 DC 02/19 (Porcine) IV 02/20 1000 2047 Sodium Chloride 500 ML Hydromorphone HCl 2 MG .STK-MED ONE 02/20 1952 DC IM 02/20 1953 Hydromorphone HCl 2 MG .STK-MED ONE 02/20 1724 DC IM 02/20 1725 Hydromorphone HCl 2 MG .STK-MED ONE 02/20 1722 DC IM 02/20 1723 Levothyroxine Sodium 0.125 MG 0600 02/20 0600 AC 02/20 PO 0615 Magnesium Hydroxide 30 ML DAILY PRN 02/19 1615 AC PO Metoprolol Tartrate 25 MG BID 02/19 2200 AC PO Mirabegron 25 MG DAILY 02/20 1000 AC PO Morphine Sulfate 2 MG Q4P PRN 02/19 1130 AC 02/20 IV 1352 Multivitamins 1 TAB DAILY 02/19 1558 AC Therapeutic PO Omeprazole 40 MG BID 02/19 1100 DC 02/19 PO 2223 Ondansetron HCl 4 MG Q8H PRN 02/19 1600 AC PO Pantoprazole Sodium 40 MG BID 02/20 2248 AC 02/21 IV 0009 Polyethylene Glycol 17 GM DAILY 02/21 1000 AC PO Potassium Chloride 40 MEQ Q20H 02/20 0830 AC 02/20 Dextrose/Sodium 1,000 ML IV 1100 Chloride Potassium Chloride 10 MEQ Q1H 02/20 0815 DC 02/20 IV 02/20 0916 1102 Potassium Chloride 20 MEQ DAILY 02/19 1311 AC PO Senna/Docusate Sodium 1 TAB BID 02/19 2200 AC 02/19 PO 2223 Tiotropium [place] 1 PUF DAILY 02/19 1253 AC 02/20 INH 1009 Tramadol HCl 50 MG Q4H PRN 02/19 1315 AC 02/20 PO 1059 Trazodone HCl 25 MG BID PRN 02/19 1600 AC PO Last 24 Hrs of Lab/Bill Results Last 24 Hrs of Labs/Mics: Laboratory Tests 02/21/17 0555: Anion Gap 5, CBC w Diff Pending, WBC Pending, RBC Pending, Hgb Pending, Hct Pending, MCV Pending, MCH Pending, RDW Pending, Plt Count Pending, MPV Pending, PUBS MCHC Pending 02/20/17 1200: APTT Cancelled Assessment/Plan Assessment: 86 yo female with pmh of A.fib on xarelto, CAD, HFpEF (EF 65%) with pulmonary HTN, 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 displaced femoral neck fracture s/p fall. 1. Rt. displaced femoral neck fracture s/p fall: S/P right hip percutaneous pinning 2. A.fib on xarelto:will start po xareltol today 3. HFpEF with PAH: Continue holding po lasix. Continue gentle IV hydration 50cc/ hr for while pt is NPO. I/Os + 720 within 24 hrs. Her most recent echo showed EF > 65% in . Continue monitor pt on telemetry. 4. Asthma/COPD: She's not on home oxygen (only as needed). Stable now, oxygen support to keep O2 > 92%, TRC, nebs as needed. 5. hypothyroidism: c/w home dose levothyroxine 0.125mg daily. 6. 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 She has patent Rt. port-a-cath. Stable. ALP is elevated likely from bone metasis. 7. Transaminitis: most likely from chemotherapy. Ultrasound abdomen was unremarkable. LFT is trending down. 8. Hypokalemia/hyponatremia: Likely secondary to D51/2 NS -> will switch to K 40mEq D5NS @ 50cc/hr then d/c after the surgery. DVT ppx: IV heparin, ALPS DNR/I, but pt will be full code when she's getting surgery. Pain pathway NPO after MN for surgery. Problem List: 1. Impacted fracture of right hip 2. Rapid atrial fibrillation Pain Ratin Pain Location: abdomen, right hip, left foot Pain Goal: Remain pain free Pain Plan: - Tomorrow's Labs & Rationales: cbc, bep DVT/Prophylaxis: pharmacological Consulting Request: Consulting Specialty: Cardiology Consulting Physician: Dr. Neal Reason for Consult: Pre-op evaluation
--- NOTE | 2017-02-21 09:14 | PN- Att Addend ---
Attending Addendum Attending Brief Note Patient upset and in distress. Appears somewhat confused. Skin: Grossly normal HEENT: PEERLA Neck: Supple, No JVD Cardiovascular: Regular Rate, Normal S1, Normal S2, No Murmurs Lungs: Clear to Auscultation, Normal Air Movement Abdomen: Soft non tender abdomen, normal bowel sounds Neurological: Normal Speech, Strength at 5/5 X4 Ext, Cranial Nerves 3-12 NL, Reflexes 2+ Extremities: Right groin tenderness and pedal edema Vascular: Normal Pulses Assessment Patient appears confused likely secondary to opioid pain meds. We will discontinue morphine and tramadol. Blood pressure remains borderline. Hold beta blockers for systolic blood pressure less than 100. Plan Discontinue morphine and tramadol Tylenol every 6 hours when necessary pain Hold beta blockers for low blood pressure Resume xarelto Continue other home medications Current Medications Sig/Timi Start time Last Medication Dose Route Stop Time Status Admin Acetaminophen 1,000 MG ONCE ONE 02/20 2300 DC 02/21 N/A 1 UNIT IV 02/20 2314 0008 Acetaminophen 325 MG Q6P PRN 02/19 1145 AC PO Albuterol Sulfate 3 ML Q4P PRN 02/19 1715 AC INH Albuterol Sulfate 3 ML Q4H PRN 02/19 1330 AC INH Bisacodyl 10 MG DAILY PRN 02/19 1600 AC CO Cholecalciferol 1,000 IU DAILY 02/19 1300 AC PO Clindamycin 600 MG IQ8 02/21 0000 DC 02/21 Dextrose/Water 50 ML IV 02/21 0829 0010 Dicyclomine HCl 20 MG 4 TIMES/DAY PRN 02/19 1330 AC PO Diltiazem HCl 25 MG .STK-MED ONE 02/20 2006 DC IV 02/20 2007 Diltiazem HCl 30 MG BID 02/19 2200 AC 02/20 PO 1059 Fentanyl Citrate 100 MCG .STK-MED ONE 02/20 1723 DC IM 02/20 1724 Heparin Sodium 25,000 UNIT Q24H 02/21 0745 AC (Porcine) IV Sodium Chloride 500 ML Heparin Sodium 25,000 UNIT Q24H 02/19 1845 DC 02/19 (Porcine) IV 02/20 1000 2047 Sodium Chloride 500 ML Hydromorphone HCl 2 MG .STK-MED ONE 02/20 1952 DC IM 02/20 195 Hydromorphone HCl 2 MG .STK-MED ONE 02/20 1724 DC IM 02/20 1725 Hydromorphone HCl 2 MG .STK-MED ONE 02/20 1722 DC IM 02/20 1723 Levothyroxine Sodium 0.125 MG 0600 02/20 0600 AC 02/20 PO 0615 Magnesium Hydroxide 30 ML DAILY PRN 02/19 1615 AC PO Metoprolol Tartrate 25 MG BID 02/19 2200 AC PO Mirabegron 25 MG DAILY 02/20 1000 AC PO Morphine Sulfate 2 MG Q4P PRN 02/19 1130 AC 02/20 IV 1352 Multivitamins 1 TAB DAILY 02/19 1558 AC Therapeutic PO Omeprazole 40 MG BID 02/19 1100 DC 02/19 PO 2223 Ondansetron HCl 4 MG Q8H PRN 02/19 1600 AC PO Pantoprazole Sodium 40 MG BID 02/20 2248 AC 02/21 IV 0009 Polyethylene Glycol 17 GM DAILY 02/21 1000 AC PO Potassium Chloride 40 MEQ Q20H 02/20 0830 AC 02/20 Dextrose/Sodium 1,000 ML IV 1100 Chloride Potassium Chloride 10 MEQ Q1H 02/20 0815 DC 02/20 IV 02/20 0916 1102 Potassium Chloride 20 MEQ DAILY 02/19 1311 AC PO Senna/Docusate Sodium 1 TAB BID 02/19 2200 AC 02/19 PO 2223 Tiotropium [place] 1 PUF DAILY 02/19 1253 AC 02/20 INH 1009 Tramadol HCl 50 MG Q4H PRN 02/19 1315 AC 02/20 PO 1059 Trazodone HCl 25 MG BID PRN 02/19 1600 AC PO Laboratory Tests 02/21 02/20 0555 1200 Chemistry Sodium (137 - 145 mmol/L) 136 L Potassium (3.5 - 5.1 mmol/L) 3.9 Chloride (98 - 107 mmol/L) 99 Carbon Dioxide (22 - 30 mmol/L) 32 H Anion Gap (5 - 16) 5 Coagulation APTT Cancelled Hematology CBC w Diff Pending WBC Pending RBC Pending Hgb Pending Hct Pending MCV Pending MCH Pending RDW Pending Plt Count Pending MPV Pending PUBS MCHC Pending Vital Signs Date Time Temp Pulse Resp B/P Pulse O2 O2 Flow FiO2 Ox Delivery Rate 02/21 0800 98.9 100 16 102/60 98 Nasal 4.0L Cannula 02/21 0439 98.2 95 20 100/58 100 Nasal 4.0L Cannula 02/21 0000 94 Nasal 4.0L Cannula 02/20 2200 98.7 114 26 94/54 94 Nasal 4.0L Cannula 02/20 2141 98.9 110 28 88/50 92 Nasal 3.0L Cannula 02/20 1622 97.9 101 20 106/60 96 Nasal 2.0L Cannula 02/20 1441 102/58 02/20 1059 93 102/60
[2017-02-21 09:25] LABS: ABSOLUTE BASOPHIL COUNT 0 /CUMM (0.0-0.2); ABSOLUTE EOSINOPHIL COUNT 0.1 /CUMM (0.0-0.7); ABSOLUTE MONOCYTE COUNT 1.6 /CUMM (0.10-0.60); HEMATOCRIT 25.3 % (37-47); MEAN PLATELET VOLUME 8.4 FL (7.4-10.4)
[2017-02-21 09:42] LABS: ABSOLUTE GRANULOCYTE CT 7.4 /CUMM (1.4-6.5); ABSOLUTE LYMPH COUNT 1.7 /CUMM (1.2-3.4); BASOPHIL % 0.4 % (0.0-2.0); GRANULOCYTE % 68.4 % (42.2-75.2); MEAN CORPUSCULAR HGB 29.6 PG (27.0-31.0); MEAN CORPUSCULAR HGB CONC 32.9 G/DL (33.0-37.0); PLATELET COUNT 157 /CUMM (130-400); RBC DISTRIBUTION WIDTH 18.5 % (11.5-14.5); RED BLOOD CELL CT 2.81 /CUMM (4.20-5.40); WHITE BLOOD CELL COUNT 10.8 /CUMM (4.8-10.8)
--- NOTE | 2017-02-21 14:32 | RADIOLOGY REPORT ---
EXAMINATION:\H\ \N\XR CHEST CLINICAL INFORMATION: Postop. Hip fracture. COMPARISON: 02/19/2017 TECHNIQUE: AP view of the chest was obtained. FINDINGS: Right chest wall port terminates near the cavoatrial junction. The lungs are well expanded. There is a small left pleural effusion with airspace opacity. This appears increased from prior. Small right pleural effusion persists. Central vascular prominence without overt edema. No pneumothorax. The cardiomediastinal silhouette is unchanged, with a calcified aorta. IMPRESSION: Left greater than right small bilateral pleural effusions, with the left effusion increased from prior. Associated left basilar airspace opacity. Central vascular prominence without overt edema.
[2017-02-21 15:30] VITALS: BP 98/60
--- NOTE | 2017-02-21 17:37 | RADIOLOGY REPORT ---
EXAMINATION: CR RIGHT HIP AND LEFT FOOT CLINICAL INFORMATION: Status post right hip open reduction internal fixation. Evaluate for fracture. Left foot pain. Evaluate for fracture. COMPARISON: Intraoperative films of the right hip dated 02/20/2017. Left ankle films dated 05/28/2012 and left foot films dated 05/24/2012. TECHNIQUE: Frontal and crosstable lateral views of the right hip were performed. 3 views of the left foot were performed. FINDINGS: Right hip: The patient is status post open reduction internal fixation of a right femoral neck fracture with 3 partially threaded screws seen transfixing the fracture site. Alignment is near anatomic with approximately 2 mm lucency seen between the fracture fragments along the medial femoral neck margin. The femoral head is normally located within the acetabulum. Postsurgical changes as seen in the soft tissues with some subcutaneous emphysema and soft tissue swelling seen. Cutaneous staple line is seen laterally. Included portions of the right hemipelvis are unremarkable. Left foot: Diffuse osteopenia. No acute fracture or dislocation. No radiopaque foreign body. No soft tissue calcification. Plantar subluxation of the metatarsal heads is seen at the MTP joints involving all digits. This appears more pronounced than on the 2012 exam. Increasing degenerative spurring is seen at the dorsal surface of the third and fourth tarsometatarsal joints. Mild hallux valgus deformity of the first ray is seen with mild degenerative change at the first metatarsophalangeal joint. Tiny posterior calcaneal spur is again seen. IMPRESSION: 1. Near-anatomic alignment status post open reduction internal fixation of right femoral neck fracture. 2. No acute fracture of the left foot. Multilevel degenerative changes seen as discussed above.
--- NOTE | 2017-02-21 21:36 | PN- Cardiology ---
Subjective Subjective: * Patient continues to have some pain with movement. No shortness of breath. * Hemodynamically stable following surgery. * H/H is 07/06 Objective Vital Signs and I&Os Vital Signs Date Time Temp Pulse Resp B/P Pulse O2 O2 Flow FiO2 Ox Delivery Rate 02/21 1530 98.1 112 20 98/60 96 Nasal 4.0L Cannula 02/21 1518 98.9 100 102/60 02/21 0800 96 Nasal 4.0L Cannula 02/21 0800 98.9 100 16 102/60 98 Nasal 4.0L Cannula 02/21 0439 98.2 95 20 100/58 100 Nasal 4.0L Cannula 02/21 0000 94 Nasal 4.0L Cannula 02/20 2200 98.7 114 26 94/54 94 Nasal 4.0L Cannula 02/20 2141 98.9 110 28 88/50 92 Nasal 3.0L Cannula Intake & Output 02/21 1600 02/21 0800 02/21 0000 02/20 1600 02/20 0800 02/20 0000 Intake Total 600 400 150 400 470 924 Output Total 252 150 150 200 150 350 Balance 348 250 0 200 320 574 Intake, IV 400 150 400 420 444 Intake, Oral 600 0 0 50 480 Number 0 0 0 0 Bowel Movements Output, Stool 2 Output, Urine 250 150 150 200 150 350 Patient 137 lb 137 lb Weight Physical Exam: General: WD/ WN female in NAD; alert and oriented x 3 Neck: no JVD, no carotid bruit Heart: irregularly irregular, no murmur Lungs: clear bilaterally Extremties: no edema Assessment/Plan Assessment/Plan * Patient is breathing comfortably. Doing well post-op. Agree with restarting Xarelto for both stroke and DVT prophylaxis. Follow H/H. Continue telemetry? Yes
[2017-02-21 21:38] VITALS: BP 98/52
[2017-02-21 22:42] LABS: ABSOLUTE BASOPHIL COUNT 0 /CUMM (0.0-0.2); ABSOLUTE EOSINOPHIL COUNT 0 /CUMM (0.0-0.7); ABSOLUTE GRANULOCYTE CT 7.5 /CUMM (1.4-6.5); ABSOLUTE LYMPH COUNT 1.9 /CUMM (1.2-3.4); ABSOLUTE MONOCYTE COUNT 1.4 /CUMM (0.10-0.60); BASOPHIL % 0.2 % (0.0-2.0); EOSINOPHIL % 0.1 % (0-5); GRANULOCYTE % 69.2 % (42.2-75.2); HEMATOCRIT 23.3 % (37-47); MEAN CORPUSCULAR HGB 29.9 PG (27.0-31.0); MEAN CORPUSCULAR HGB CONC 33.1 G/DL (33.0-37.0); MEAN CORPUSCULAR VOLUME 90.1 FL (81.0-99.0); MEAN PLATELET VOLUME 8.3 FL (7.4-10.4); PLATELET COUNT 163 /CUMM (130-400); RBC DISTRIBUTION WIDTH 18.1 % (11.5-14.5); RED BLOOD CELL CT 2.58 /CUMM (4.20-5.40); WHITE BLOOD CELL COUNT 10.8 /CUMM (4.8-10.8)
[2017-02-21 23:01] LABS: PTT 78 SEC (25-37)
[2017-02-21 23:13] VITALS: BP 98/52
[2017-02-22 00:43] VITALS: BP 100/60
[2017-02-22 04:18] VITALS: BP 116/58
--- NOTE | 2017-02-22 07:01 | NUR ---
LATE ENTRY: 02/21 2200- SURGICAL R HIP DSG NOTED TO BE BLOODY. SURGICAL PA MALLORIE CALLED. WAS TOLD TO CHANGE DSG AND REPORT ANY ABNORMALITIES WITH SURGICAL SITE. R HIP INCISION LOKESH INTACT, NO ERYTHEMA. TRACE EDEMA NOTED AROUND AREA. FLUFFTEX AND ABD PAD PLACED WITH PAPER TAPE. AFTER CHANGING DRESSING, NO FURTHER BLOODY DRAINAGE NOTICED.
--- NOTE | 2017-02-22 07:27 | PN- Orthopedic ---
Subjective Subjective: Patient reports pain at the procedure site, generalized abdominal pain and pain in the right ankle / foot with movement , however reports it radiates to her post op hip site.NO other compliants .Tolerating diet , Passing flatus ,and bowel movement.She denies any other compliants. Objective Vital Signs and I&Os Vital Signs Date Time Temp Pulse Resp B/P Pulse O2 O2 Flow FiO2 Ox Delivery Rate 02/22 0418 97.6 81 20 116/58 99 Nasal Cannula 02/22 0043 98.1 101 20 100/60 97 Nasal Cannula 02/22 0000 99 Nasal 4.0L Cannula 02/21 2313 98.1 94 22 98/52 99 Nasal 4.0L Cannula 02/21 2242 95 Nasal 3.0L Cannula 02/21 2142 94 98/52 02/21 2142 94 98/52 02/21 2138 98.1 94 20 98/52 99 Nasal 4.0L Cannula 02/21 1530 98.1 112 20 98/60 96 Nasal 4.0L Cannula 02/21 1518 98.9 100 102/60 02/21 0800 96 Nasal 4.0L Cannula 02/21 0800 98.9 100 16 102/60 98 Nasal 4.0L Cannula Intake & Output 02/22 0800 02/22 0000 02/21 1600 02/21 0800 02/21 0000 02/20 1600 Intake Total 640 880 800 400 150 400 Output Total 150 400 403 150 150 200 Balance 490 480 397 250 0 200 Intake, IV 400 400 400 150 400 Intake, Oral 240 480 800 0 0 Number 0 1 0 0 Bowel Movements Output, Stool 3 Output, Urine 150 400 400 150 150 200 Patient 137 lb Weight Physical Exam: Alert, awake and resting in bed. Cardiovascular: Normal S1, Normal S2 Lungs: Clear to Auscultation, with bialteral crackles Left >>right. Abdomen: generalized tenderness,softly distended, bowel sound were present , no rebound /guarding. Right Hip : post op site is clean and dry and dressing is applied. Current Medications: Current Medications Sig/Timi Start time Last Medication Dose Route Stop Time Status Admin Acetaminophen 1,000 MG ONCE ONE 02/21 1500 DC 02/21 N/A 1 UNIT IV 02/21 1514 1507 Acetaminophen 325 MG Q6P PRN 02/19 1145 AC PO Albuterol Sulfate 3 ML Q4P PRN 02/19 1715 AC INH Albuterol Sulfate 3 ML Q4H PRN 02/19 1330 AC INH Bisacodyl 10 MG DAILY PRN 02/19 1600 AC [place] Cholecalciferol 1,000 IU DAILY 02/19 1300 AC 02/21 PO 1543 Clindamycin 600 MG IQ8 02/21 0000 DC 02/21 Dextrose/Water 50 ML IV 02/21 0829 1210 Dicyclomine HCl 20 MG 4 TIMES/DAY PRN 02/19 1330 AC PO Diltiazem HCl 30 MG BID 02/19 2200 AC 02/21 PO 2142 Heparin Sodium 25,000 UNIT Q24H 02/21 0745 DC (Porcine) IV Sodium Chloride 500 ML Levothyroxine Sodium 0.125 MG 0600 02/20 0600 AC 02/22 PO 0557 Magnesium Hydroxide 30 ML DAILY PRN 02/19 1615 AC PO Metoprolol Tartrate 25 MG BID 02/21 2200 AC PO Metoprolol Tartrate 25 MG BID 02/19 2200 DC PO Mirabegron 25 MG DAILY 02/20 1000 AC 02/21 PO 1518 Morphine Sulfate 2 MG Q4P PRN 02/19 1130 DC 02/20 IV 1352 Multivitamins 1 TAB DAILY 02/19 1558 AC 02/21 Therapeutic PO 1543 Ondansetron HCl 4 MG Q8H PRN 02/19 1600 AC PO Oxycodone/ 1 TAB Q6P PRN 02/21 1515 AC 02/22 Acetaminophen PO 0557 Pantoprazole Sodium 40 MG BID 02/20 2248 AC 02/21 IV 2142 Polyethylene Glycol 17 GM DAILY 02/21 1000 AC 02/21 PO 1519 Potassium Chloride 40 MEQ Q20H 02/20 0830 AC 02/22 Dextrose/Sodium 1,000 ML IV 0557 Chloride Potassium Chloride 20 MEQ DAILY 02/19 1311 AC 02/21 PO 1519 Rivaroxaban 15 MG 1700 02/21 1700 AC 02/21 PO 2142 Senna/Docusate Sodium 1 TAB BID 02/19 2200 AC 02/21 PO 2142 Tiotropium [place] 1 PUF DAILY 02/19 1253 AC 02/21 INH 1543 Tramadol HCl 50 MG Q4H PRN 02/19 1315 DC 02/20 PO 1059 Trazodone HCl 25 MG BID PRN 02/19 1600 AC PO Results Last 48 Hours of Labs: Laboratory Tests 02/22 02/21 02/21 0609 2225 2223 Chemistry Sodium Pending Potassium Pending Chloride Pending Carbon Dioxide Pending Anion Gap Pending BUN Pending Creatinine Pending BUN/Creatinine Ratio Pending Coagulation APTT (25 - 37 SEC) 78 H Hematology CBC w Diff Pending MAN DIFF ORDERED WBC (4.8 - 10.8 /CUMM) Pending 10.8 RBC (4.20 - 5.40 /CUMM) Pending 2.58 L Hgb (12.0 - 16.0 G/DL) Pending 7.7 L Hct (37 - 47 %) Pending 23.3 L MCV (81.0 - 99.0 FL) Pending 90.1 MCH (27.0 - 31.0 PG) Pending 29.9 RDW (11.5 - 14.5 %) Pending 18.1 H Plt Count (130 - 400 /CUMM) Pending 163 MPV (7.4 - 10.4 FL) Pending 8.3 Gran % (42.2 - 75.2 %) 69.2 Lymphocytes % (20.5 - 51.1 %) 17.4 L Monocytes % (1.7 - 9.3 %) 13.1 H Eosinophils % (0 - 5 %) 0.1 Basophils % (0.0 - 2.0 %) 0.2 Absolute Granulocytes (1.4 - 6.5 /CUMM) 7.5 H Absolute Lymphocytes (1.2 - 3.4 /CUMM) 1.9 Absolute Monocytes (0.10 - 0.60 /CUMM) 1.4 H Absolute Eosinophils (0.0 - 0.7 /CUMM) 0 Absolute Basophils (0.0 - 0.2 /CUMM) 0 Platelet Estimate (ADEQUATE) ADEQUATE Normochromic RBCs VERIFIED Anisocytosis 1+ Macrocytic Cells FEW PUBS MCHC (33.0 - 37.0 G/DL) Pending 33.1 02/21 02/20 0555 1200 Chemistry Sodium (137 - 145 mmol/L) 136 L Potassium (3.5 - 5.1 mmol/L) 3.9 Chloride (98 - 107 mmol/L) 99 Carbon Dioxide (22 - 30 mmol/L) 32 H Anion Gap (5 - 16) 5 Coagulation APTT Cancelled Hematology CBC w Diff MAN DIFF ORDERED WBC (4.8 - 10.8 /CUMM) 10.8 RBC (4.20 - 5.40 /CUMM) 2.81 L Hgb (12.0 - 16.0 G/DL) 8.3 L Hct (37 - 47 %) 25.3 L MCV (81.0 - 99.0 FL) 90.0 MCH (27.0 - 31.0 PG) 29.6 RDW (11.5 - 14.5 %) 18.5 H Plt Count (130 - 400 /CUMM) 157 MPV (7.4 - 10.4 FL) 8.4 Gran % (42.2 - 75.2 %) 68.4 Lymphocytes % (20.5 - 51.1 %) 15.7 L Monocytes % (1.7 - 9.3 %) 14.5 H Eosinophils % (0 - 5 %) 1.0 Basophils % (0.0 - 2.0 %) 0.4 Absolute Granulocytes (1.4 - 6.5 /CUMM) 7.4 H Absolute Lymphocytes (1.2 - 3.4 /CUMM) 1.7 Absolute Monocytes (0.10 - 0.60 /CUMM) 1.6 H Absolute Eosinophils (0.0 - 0.7 /CUMM) 0.1 Absolute Basophils (0.0 - 0.2 /CUMM) 0 Platelet Estimate (ADEQUATE) ADEQUATE Hypochromic-Microcytic 1+ Poikilocytosis 1+ Anisocytosis 1+ Ovalocytes 1+ PUBS MCHC (33.0 - 37.0 G/DL) 32.9 L urine culture : postive , enterococcus Recent Imaging Studies: 02/22/17 R IGHT hIP xray : 1. Near-anatomic alignment status post open reduction internal fixation of right femoral neck fracture. 2. No acute fracture of the left foot. Multilevel degenerative changes seen as discussed above. Assessment/Plan Assessment/Plan 86 Y/O with hx afib ,cpod,lymphoma, POD 2 s/p right hip percutaneous pinning right hip xrays done today appears with normal limits post op . -start antibiotics for postive urine culture. - R foot xray -May resume all anticoagulation. WBAT with PT. Core Measures/Miscellaneous Venous Thromboembolism VTE Risk Factors: Age > 40, Surgery VTE Contraindications: No Contraindications VTE Diagnosis: No VTE Type: NONE VTE Confirmed by (Test): NONE Beta Makenzie Is Beta Makenzie a Home Med? No Antibiotics Is Patient on Antibiotics? Yes If Yes: prophylaxis
--- NOTE | 2017-02-22 07:36 | PN- Housestaff ---
Subjective Follow-up For: rt. hip fracture POD 1 s/p right hip percutaneous pinning A.fib Complaints: no complaints Subjective: Patient seen and examined, today she is much brighter, she is lying in the bed with no acute distress. She report that the pain has improved, her abdominal pain resolved after large bowel movement yesterday, vitals stable. Review of Systems Constitutional: Reports: no symptoms. EENTM: Reports: no symptoms. Cardiovascular: Reports: no symptoms. Respiratory: Reports: no symptoms. Gastrointestinal: Reports: no symptoms. Musculoskeletal: Reports: joint pain. Objective Last 24 Hrs of Vital Signs/I&O Vital Signs Date Time Temp Pulse Resp B/P Pulse O2 O2 Flow FiO2 Ox Delivery Rate 02/22 0418 97.6 81 20 116/58 99 Nasal Cannula 02/22 0043 98.1 101 20 100/60 97 Nasal Cannula 02/22 0000 99 Nasal 4.0L Cannula 02/21 2313 98.1 94 22 98/52 99 Nasal 4.0L Cannula 02/21 2242 95 Nasal 3.0L Cannula 02/21 2142 94 98/52 02/21 2142 94 98/52 02/21 2138 98.1 94 20 98/52 99 Nasal 4.0L Cannula 02/21 1530 98.1 112 20 98/60 96 Nasal 4.0L Cannula 02/21 1518 98.9 100 102/60 Intake & Output 02/22 1600 02/22 0800 02/22 0000 Intake Total 640 1080 Output Total 150 551 Balance 490 529 Intake, IV 400 400 Intake, Oral 240 680 Number 0 1 Bowel Movements Output, Stool 1 Output, Urine 150 550 Physical Exam General Appearance: Alert, Cooperative, No Acute Distress Skin: No Rashes, No Breakdown, No Significant Lesion HEENT: PERRLA, EOMI, Mucous Membr. moist/pink Neck: Supple, No JVD Cardiovascular: Normal S1, Normal S2 Lungs: Normal Air Movement Abdomen: Normal Bowel Sounds, Soft, No Tenderness Extremities: No Edema, Normal Pulses Current Medications: Current Medications Sig/Tmii Start time Last Medication Dose Route Stop Time Status Admin Acetaminophen 1,000 MG ONCE ONE 02/21 1500 DC 02/21 N/A 1 UNIT IV 02/21 1514 1507 Acetaminophen 325 MG Q6P PRN 02/19 1145 AC PO Albuterol Sulfate 3 ML Q4P PRN 02/19 1715 AC INH Albuterol Sulfate 3 ML Q4H PRN 02/19 1330 AC INH Bisacodyl 10 MG DAILY PRN 02/19 1600 AC [place] Cholecalciferol 1,000 IU DAILY 02/19 1300 AC 02/21 PO 1543 Clindamycin 600 MG IQ8 02/21 0000 DC 02/21 Dextrose/Water 50 ML IV 02/21 0829 1210 Dicyclomine HCl 20 MG 4 TIMES/DAY PRN 02/19 1330 AC PO Diltiazem HCl 30 MG BID 02/19 2200 AC 02/21 PO 2142 Heparin Sodium 25,000 UNIT Q24H 02/21 0745 DC (Porcine) IV Sodium Chloride 500 ML Levothyroxine Sodium 0.125 MG 0600 02/20 0600 AC 02/22 PO 0557 Magnesium Hydroxide 30 ML DAILY PRN 02/19 1615 AC PO Metoprolol Tartrate 25 MG BID 02/21 2200 AC PO Metoprolol Tartrate 25 MG BID 02/19 2200 DC PO Mirabegron 25 MG DAILY 02/20 1000 AC 02/21 PO 1518 Morphine Sulfate 2 MG Q4P PRN 02/19 1130 DC 02/20 IV 1352 Multivitamins 1 TAB DAILY 02/19 1558 AC 02/21 Therapeutic PO 1543 Nitrofurantoin 50 MG Q6 02/22 0807 UNVr PO Ondansetron HCl 4 MG Q8H PRN 02/19 1600 AC PO Oxycodone/ 1 TAB Q6P PRN 02/21 1515 AC 02/22 Acetaminophen PO 0557 Pantoprazole Sodium 40 MG BID 02/20 2248 AC 02/21 IV 2142 Polyethylene Glycol 17 GM DAILY 02/21 1000 AC 02/21 PO 1519 Potassium Chloride 40 MEQ Q20H 02/20 0830 AC 02/22 Dextrose/Sodium 1,000 ML IV 0557 Chloride Potassium Chloride 20 MEQ DAILY 02/19 1311 AC 02/21 PO 1519 Rivaroxaban 15 MG 1700 02/21 1700 AC 02/21 PO 2142 Senna/Docusate Sodium 1 TAB BID 02/19 2200 AC 02/21 PO 2142 Tiotropium [place] 1 PUF DAILY 02/19 1253 AC 02/21 INH 1543 Tramadol HCl 50 MG Q4H PRN 02/19 1315 DC 02/20 PO 1059 Trazodone HCl 25 MG BID PRN 02/19 1600 AC PO Last 24 Hrs of Lab/Bill Results Last 24 Hrs of Labs/Mics: Laboratory Tests 02/22/17 0609: Anion Gap 2 L, Estimated GFR 59 L, BUN/Creatinine Ratio 18.9, CBC w Diff Pending, WBC Pending, RBC Pending, Hgb Pending, Hct Pending, MCV Pending, MCH Pending, RDW Pending, Plt Count Pending, MPV Pending, PUBS MCHC Pending 02/21/172224: APTT 78 H 02/21/172222: CBC w Diff MAN DIFF ORDERED, RBC 2.58 L, MCV 90.1, MCH 29.9, RDW 18.1 H, MPV 8.3, Gran % 69.2, Lymphocytes % 17.4 L, Monocytes % 13.1 H, Eosinophils % 0.1, Basophils % 0.2, Absolute Granulocytes 7.5 H, Absolute Lymphocytes 1.9, Absolute Monocytes 1.4 H, Absolute Eosinophils 0, Absolute Basophils 0, Platelet Estimate ADEQUATE, Normochromic RBCs VERIFIED, Anisocytosis 1+, Macrocytic Cells FEW, PUBS MCHC 33.1 Assessment/Plan Assessment: 86 yo female with pmh of A.fib on xarelto, CAD, HFpEF (EF 65%) with pulmonary HTN, 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 displaced femoral neck fracture s/p fall. 1. Rt. displaced femoral neck fracture s/p fall: S/P right hip percutaneous pinning, pain is improving 2. A.fib on xarelto:On Xarelto 3. HFpEF with PAH: Lasix in hold for now 4. Asthma/COPD: She's not on home oxygen (only as needed). Stable now, oxygen support to keep O2 > 92%, TRC, nebs as needed. 5. hypothyroidism: c/w home dose levothyroxine 0.125mg daily. 6. 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 She has patent Rt. port-a-cath. Stable. ALP is elevated likely from bone metasis. 7. Transaminitis: most likely from chemotherapy. Ultrasound abdomen was unremarkable. LFT is trending down. 8. Hypokalemia/hyponatremia: Likely secondary to D51/2 NS -> will switch to K 40mEq D5NS @ 50cc/hr then d/c after the surgery. 9.Positive urine cx. for E.coli: the case discussed with attending who recommend to reapeat UA, watch off antibiotic for now. 10. Lt. foot pain: X-ray showed no active fracture, she had arthritis which most likely ating up with her acute illness. DVT ppx: IV heparin, ALPS DNR/I, but pt will be full code when she's getting surgery. Pain pathway NPO after MN for surgery. Problem List: 1. ATRIAL FIBRILATION 2. ARTHRITIS 3. Impacted fracture of right hip Pain Ratin Pain Location: right hip Pain Goal: Pain 4 or less Pain Plan: - Tomorrow's Labs & Rationales: cbc, bep DVT/Prophylaxis: pharmacological Consulting Request: Consulting Specialty: Cardiology Consulting Physician: Dr. Neal Reason for Consult: Pre-op evaluation Reason for Consult: Pre-op evaluation
[2017-02-22 08:00] VITALS: BP 100/62
[2017-02-22 08:02] LABS: ABSOLUTE BASOPHIL COUNT 0 /CUMM (0.0-0.2); ABSOLUTE EOSINOPHIL COUNT 0.3 /CUMM (0.0-0.7); ABSOLUTE LYMPH COUNT 1.5 /CUMM (1.2-3.4); ABSOLUTE MONOCYTE COUNT 1.3 /CUMM (0.10-0.60); BASOPHIL % 0.3 % (0.0-2.0); EOSINOPHIL % 2.7 % (0-5); GRANULOCYTE % 69.2 % (42.2-75.2); HEMATOCRIT 23.4 % (37-47); MEAN CORPUSCULAR HGB 29.3 PG (27.0-31.0); MEAN CORPUSCULAR HGB CONC 32.7 G/DL (33.0-37.0); MEAN CORPUSCULAR VOLUME 89.5 FL (81.0-99.0); MEAN PLATELET VOLUME 8.6 FL (7.4-10.4); PLATELET COUNT 165 /CUMM (130-400); RBC DISTRIBUTION WIDTH 18.5 % (11.5-14.5); RED BLOOD CELL CT 2.62 /CUMM (4.20-5.40); WHITE BLOOD CELL COUNT 10.2 /CUMM (4.8-10.8)
--- NOTE | 2017-02-22 09:39 | PN- Att Addend ---
Attending Addendum Attending Brief Note Patient mental status improved. She complains of right foot pain. X-ray left foot negative. Skin: Grossly normal HEENT: PEERLA Neck: Supple, No JVD Cardiovascular: Regular Rate, Normal S1, Normal S2, No Murmurs Lungs: Clear to Auscultation, Normal Air Movement Abdomen: Soft non tender abdomen, normal bowel sounds Neurological: Normal Speech, Strength at 5/5 X4 Ext, Cranial Nerves 3-12 NL, Reflexes 2+ Extremities: Right foot tenderness Vascular: Normal Pulses Assessment Improved mental status. She has 30,000 colonies of enterococcus in the urine that is likely colonization and she does not have any fever with borderline leukocytosis. We will follow her off antibiotics. Discontinue Irene and repeat a UA again. In the meantime x-ray right foot and continue pain control. Plan X-ray right foot Repeat UA Monitor off antibiotics discontinue Irene Continue current pain meds Hold beta blockers for low blood pressure Continue xarelto Continue other home medications Current Medications Sig/Timi Start time Last Medication Dose Route Stop Time Status Admin Acetaminophen 1,000 MG ONCE ONE 02/21 1500 DC 02/21 N/A 1 UNIT IV 02/21 1514 1507 Acetaminophen 325 MG Q6P PRN 02/19 1145 AC PO Albuterol Sulfate 3 ML Q4P PRN 02/19 1715 AC INH Albuterol Sulfate 3 ML Q4H PRN 02/19 1330 AC INH Bisacodyl 10 MG DAILY PRN 02/[address] Cholecalciferol 1,000 IU DAILY 02/19 1300 AC 02/21 PO 1543 Dicyclomine HCl 20 MG 4 TIMES/DAY PRN 02/19 1330 AC PO Diltiazem HCl 30 MG BID 02/19 2200 AC 02/21 PO 2142 Heparin Sodium 25,000 UNIT Q24H 02/21 0745 DC (Porcine) IV Sodium Chloride 500 ML Levothyroxine Sodium 0.125 MG 0600 02/20 0600 AC 02/22 PO 0557 Magnesium Hydroxide 30 ML DAILY PRN 02/19 1615 AC PO Metoprolol Tartrate 25 MG BID 02/21 2200 AC PO Metoprolol Tartrate 25 MG BID 02/19 2200 DC PO Mirabegron 25 MG DAILY 02/20 1000 AC 02/21 PO 1518 Morphine Sulfate 2 MG Q4P PRN 02/19 1130 DC 02/20 IV 1352 Multivitamins 1 TAB DAILY 02/19 1558 AC 02/21 Therapeutic PO 1543 Nitrofurantoin 50 MG Q6 02/22 0807 DC PO Ondansetron HCl 4 MG Q8H PRN 02/19 1600 AC PO Oxycodone/ 1 TAB Q6P PRN 02/21 1515 AC 02/22 Acetaminophen PO 0557 Pantoprazole Sodium 40 MG BID 02/20 2248 AC 02/21 IV 2142 Polyethylene Glycol 17 GM DAILY 02/21 1000 AC 02/21 PO 1519 Potassium Chloride 40 MEQ Q20H 02/20 0830 AC 02/22 Dextrose/Sodium 1,000 ML IV 0557 Chloride Potassium Chloride 20 MEQ DAILY 02/19 1311 AC 02/21 PO 1519 Rivaroxaban 15 MG 1700 02/21 1700 AC 02/21 PO 2142 Senna/Docusate Sodium 1 TAB BID 02/19 2200 AC 02/21 PO 2142 Tiotropium [place] 1 PUF DAILY 02/19 1253 AC 02/21 INH 1543 Tramadol HCl 50 MG Q4H PRN 02/19 1315 DC 02/20 PO 1059 Trazodone HCl 25 MG BID PRN 02/19 1600 AC PO Vancomycin HCl 1,000 MG DAILY 02/22 1000 CAN Sodium Chloride 250 ML IV Laboratory Tests 02/22 02/21 0609 2225 Chemistry Sodium (137 - 145 mmol/L) 134 L Potassium (3.5 - 5.1 mmol/L) 4.7 Chloride (98 - 107 mmol/L) 100 Carbon Dioxide (22 - 30 mmol/L) 32 H Anion Gap (5 - 16) 2 L BUN (7 - 17 mg/dL) 17 Creatinine (0.5 - 1.0 mg/dL) 0.9 Estimated GFR (>60 ml/min) 59 L BUN/Creatinine Ratio (7 - 25 %) 18.9 Coagulation APTT (25 - 37 SEC) 78 H Hematology CBC w Diff NO MAN DIFF REQ WBC (4.8 - 10.8 /CUMM) 10.2 RBC (4.20 - 5.40 /CUMM) 2.62 L Hgb (12.0 - 16.0 G/DL) 7.7 L Hct (37 - 47 %) 23.4 L MCV (81.0 - 99.0 FL) 89.5 MCH (27.0 - 31.0 PG) 29.3 RDW (11.5 - 14.5 %) 18.5 H Plt Count (130 - 400 /CUMM) 165 MPV (7.4 - 10.4 FL) 8.6 Gran % (42.2 - 75.2 %) 69.2 Lymphocytes % (20.5 - 51.1 %) 14.5 L Monocytes % (1.7 - 9.3 %) 13.3 H Eosinophils % (0 - 5 %) 2.7 Basophils % (0.0 - 2.0 %) 0.3 Absolute Granulocytes (1.4 - 6.5 /CUMM) 7.0 H Absolute Lymphocytes (1.2 - 3.4 /CUMM) 1.5 Absolute Monocytes (0.10 - 0.60 /CUMM) 1.3 H Absolute Eosinophils (0.0 - 0.7 /CUMM) 0.3 Absolute Basophils (0.0 - 0.2 /CUMM) 0 PUBS MCHC (33.0 - 37.0 G/DL) 32.7 L 02/213 Hematology CBC w Diff MAN DIFF ORDERED WBC (4.8 - 10.8 /CUMM) 10.8 RBC (4.20 - 5.40 /CUMM) 2.58 L Hgb (12.0 - 16.0 G/DL) 7.7 L Hct (37 - 47 %) 23.3 L MCV (81.0 - 99.0 FL) 90.1 MCH (27.0 - 31.0 PG) 29.9 RDW (11.5 - 14.5 %) 18.1 H Plt Count (130 - 400 /CUMM) 163 MPV (7.4 - 10.4 FL) 8.3 Gran % (42.2 - 75.2 %) 69.2 Lymphocytes % (20.5 - 51.1 %) 17.4 L Monocytes % (1.7 - 9.3 %) 13.1 H Eosinophils % (0 - 5 %) 0.1 Basophils % (0.0 - 2.0 %) 0.2 Absolute Granulocytes (1.4 - 6.5 /CUMM) 7.5 H Absolute Lymphocytes (1.2 - 3.4 /CUMM) 1.9 Absolute Monocytes (0.10 - 0.60 /CUMM) 1.4 H Absolute Eosinophils (0.0 - 0.7 /CUMM) 0 Absolute Basophils (0.0 - 0.2 /CUMM) 0 Platelet Estimate (ADEQUATE) ADEQUATE Normochromic RBCs VERIFIED Anisocytosis 1+ Macrocytic Cells FEW PUBS MCHC (33.0 - 37.0 G/DL) 33.1 Vital Signs Date Time Temp Pulse Resp B/P Pulse O2 O2 Flow FiO2 Ox Delivery Rate 02/22 0842 96 Nasal 2.0L Cannula 02/22 0800 97.7 101 22 100/62 99 Nasal 3.0L Cannula 02/22 0418 97.6 81 20 116/58 99 Nasal Cannula 02/22 0043 98.1 101 20 100/60 97 Nasal Cannula 02/22 0000 99 Nasal 4.0L Cannula 02/21 2313 98.1 94 22 98/52 99 Nasal 4.0L Cannula 02/21 2242 95 Nasal 3.0L Cannula 02/21 2142 94 98/52 02/21 2142 94 98/52 02/21 2138 98.1 94 20 98/52 99 Nasal 4.0L Cannula 02/21 1530 98.1 112 20 98/60 96 Nasal 4.0L Cannula 02/21 1518 98.9 100 102/60
--- NOTE | 2017-02-22 10:19 | RADIOLOGY REPORT ---
EXAMINATION: XR FOOT, RIGHT CLINICAL INFORMATION: Right foot, ankle pain. COMPARISON: None TECHNIQUE: AP, lateral, and oblique views , 4 images of the right foot. FINDINGS: Mild diffuse osteopenia is noted involving all the visualized bones. The bony alignment is intact. The cortices are intact. Mild osteoarthrosis is noted at the first MTP joint. Specifically, no radiographic evidence of any displaced fracture, subluxation, dislocation identified. There is no periosteal reaction present. The soft tissues are unremarkable. Minimal enthesopathy is noted at the insertional site of the Achilles tendon to the calcaneus. IMPRESSION: Mild diffuse osteopenia. Mild osteoarthrosis at the first MTP joint. No radiographic evidence of any acute fracture and/or dislocation or any radiopaque foreign body.
[2017-02-22 12:00] VITALS: BP 90/50
[2017-02-22 15:30] VITALS: BP 112/60
[2017-02-22 21:02] VITALS: BP 118/58
[2017-02-23 01:20] VITALS: BP 106/58
[2017-02-23 04:13] VITALS: BP 114/54
[2017-02-23 06:14] LABS: ABSOLUTE BASOPHIL COUNT 0 /CUMM (0.0-0.2); ABSOLUTE EOSINOPHIL COUNT 0.6 /CUMM (0.0-0.7); ABSOLUTE GRANULOCYTE CT 5.8 /CUMM (1.4-6.5); ABSOLUTE LYMPH COUNT 1.6 /CUMM (1.2-3.4); ABSOLUTE MONOCYTE COUNT 1.1 /CUMM (0.10-0.60); BASOPHIL % 0.5 % (0.0-2.0); GRANULOCYTE % 63.3 % (42.2-75.2); HEMATOCRIT 24.4 % (37-47); MEAN CORPUSCULAR HGB 29.5 PG (27.0-31.0); MEAN CORPUSCULAR HGB CONC 32.7 G/DL (33.0-37.0); MEAN CORPUSCULAR VOLUME 90.4 FL (81.0-99.0); MEAN PLATELET VOLUME 8.3 FL (7.4-10.4); PLATELET COUNT 197 /CUMM (130-400); RBC DISTRIBUTION WIDTH 18.3 % (11.5-14.5); WHITE BLOOD CELL COUNT 9.2 /CUMM (4.8-10.8)
--- NOTE | 2017-02-23 06:56 | Event Note ---
Event Note Event Note: Around 6:15 am paged by the nurses that the patient ahd a 10 beat run of V-Tach, and was c/o SOB. Went to examine the patient. She was in moderate respiratory distress, vc/o pain in her neck near the hairline. She was on 3.0 liters of O2, and desaturated to 84%. Physical exam pertinent for a BP: 160/90, HR: 120's, RR: 35. Ordered a stat CXR, BEP, Mag, troponin, and administered Lasix 20mg IV x1. Repleted Mag which was 1.5, trop was negative, EKG unremarkable. Awaiting results of CXR, call back from Dr. Casiano and left a voice mail with the patient's son. Patient's respiratory status improved after being on BiPAP. Will s/o to morning team.
--- NOTE | 2017-02-23 06:57 | RADIOLOGY REPORT ---
EXAMINATION: XR PORTABLE CHEST CLINICAL INFORMATION: Shortness of breath COMPARISON: 02/21/2017 TECHNIQUE: Portable AP view of the chest was obtained. FINDINGS: Right chest wall port remains in place. Cardiac leads overlie the chest. The lungs are well expanded. There are increased perihilar opacities with prominent interstitial markings. Small left pleural effusion persists. No pneumothorax. The cardiomediastinal silhouette is unchanged. No acute osseous abnormality. IMPRESSION: New perihilar opacities with increased interstitial markings was consistent with pulmonary edema. Persistent small left pleural effusion.
--- NOTE | 2017-02-23 07:34 | PN- Orthopedic ---
See Addendum Subjective Subjective: Pt had an episode of hypoxia and tachycardia early this morning. X-ray revealed pulmonary edema. She received lasix IV x 20mg and remains on BiPap. She has voided twice this morning since lasix. +BM x 2 so far. Admits to hip discomfort, particularly when turning. Has been out of bed to chair, but no ambulation as of yet. Required pita back to bed. Objective Vital Signs and I&Os Vital Signs Date Time Temp Pulse Resp B/P Pulse O2 O2 Flow FiO2 Ox Delivery Rate 02/23 0637 114 98 02/23 0413 98.2 97 20 114/54 97 Nasal Cannula 02/23 0120 97.5 108 20 106/58 98 Nasal Cannula 02/23 0000 Nasal 3.0L Cannula 02/22 2303 112 118/60 02/22 2302 112 118/60 02/22 2102 98.2 106 20 118/58 99 Nasal 3.0L Cannula 02/22 1530 98.1 89 20 112/60 99 Nasal 3.0L Cannula 02/22 1200 90/50 02/22 0842 96 Nasal 2.0L Cannula Intake & Output 02/23 1600 02/23 0800 02/23 0000 02/22 1600 02/22 0800 02/22 0000 Intake Total 520 500 931 886 7422 Output Total 200 350 250 150 551 Balance 320 150 630 490 529 Intake, IV 400 200 400 400 400 Intake, Oral 120 300 480 240 680 Number 1 0 1 Bowel Movements Output, Stool 1 Output, Urine 200 350 250 150 550 Physical Exam: General: Pt is awake and alert. NAD at this time, but she displays some anxiety during ABG blood draw and turning to place bed bacon. Cardiac: Irreg Pulmonary: Coarse BS noted bilaterally. Ext: R thigh dressing is c/d/i. [place] are intact. There is mild surrounding ecchymosis and moderate thigh swelling, but thigh is soft. LE sensation is intact. R calf swelling noted. No calf tenderness. Results Last 48 Hours of Labs: Laboratory Tests 02/23 02/23 0806 0530 Blood Gas pH (7.35 - 7.45 PH) 7.41 pCO2 (35 - 45 TORR) 41 pO2 (80 - 100 TORR) 163 H HCO3 (21 - 28 MEQ/L) 25 ABG O2 Sat (Measured) (>96.0 %) 98.0 P-50 (Temp Corrected) N Carboxyhemoglobin (1.5 - 5.0 %) 0.5 L O2 Concentration % 50 Temperature (97.0 - 100.0 FARH) 98.2 Respiration Rate (BPM) 24 O2 Delivery Method BIPAP Vent Mode ST Expiratory Pressure (CM H2O P) 6 Inspiratory Pressure (CM H2O P) 16 Chemistry Sodium (137 - 145 mmol/L) 134 L Potassium (3.5 - 5.1 mmol/L) 5.2 H Chloride (98 - 107 mmol/L) 101 Carbon Dioxide (22 - 30 mmol/L) 29 Anion Gap (5 - 16) 3 L BUN (7 - 17 mg/dL) 15 Creatinine (0.5 - 1.0 mg/dL) 0.8 Estimated GFR (>60 ml/min) > 60 BUN/Creatinine Ratio (7 - 25 %) 18.8 Magnesium (1.6 - 2.3 mg/dL) 1.5 L Troponin I (< 0.11 ng/ml) < 0.01 Hematology CBC w Diff NO MAN DIFF REQ WBC (4.8 - 10.8 /CUMM) 9.2 RBC (4.20 - 5.40 /CUMM) 2.70 L Hgb (12.0 - 16.0 G/DL) 8.0 L Hct (37 - 47 %) 24.4 L MCV (81.0 - 99.0 FL) 90.4 MCH (27.0 - 31.0 PG) 29.5 RDW (11.5 - 14.5 %) 18.3 H Plt Count (130 - 400 /CUMM) 197 MPV (7.4 - 10.4 FL) 8.3 Gran % (42.2 - 75.2 %) 63.3 Lymphocytes % (20.5 - 51.1 %) 17.2 L Monocytes % (1.7 - 9.3 %) 12.0 H Eosinophils % (0 - 5 %) 7.0 H Basophils % (0.0 - 2.0 %) 0.5 Absolute Granulocytes (1.4 - 6.5 /CUMM) 5.8 Absolute Lymphocytes (1.2 - 3.4 /CUMM) 1.6 Absolute Monocytes (0.10 - 0.60 /CUMM) 1.1 H Absolute Eosinophils (0.0 - 0.7 /CUMM) 0.6 Absolute Basophils (0.0 - 0.2 /CUMM) 0 PUBS MCHC (33.0 - 37.0 G/DL) 32.7 L Miscellaneous Phlebotomy Draw Site LEFT RADIAL 02/22 02/22 1871 0631 Chemistry Sodium (137 - 145 mmol/L) 134 L Potassium (3.5 - 5.1 mmol/L) 4.7 Chloride (98 - 107 mmol/L) 100 Carbon Dioxide (22 - 30 mmol/L) 32 H Anion Gap (5 - 16) 2 L BUN (7 - 17 mg/dL) 17 Creatinine (0.5 - 1.0 mg/dL) 0.9 Estimated GFR (>60 ml/min) 59 L BUN/Creatinine Ratio (7 - 25 %) 18.9 Hematology CBC w Diff NO MAN DIFF REQ WBC (4.8 - 10.8 /CUMM) 10.2 RBC (4.20 - 5.40 /CUMM) 2.62 L Hgb (12.0 - 16.0 G/DL) 7.7 L Hct (37 - 47 %) 23.4 L MCV (81.0 - 99.0 FL) 89.5 MCH (27.0 - 31.0 PG) 29.3 RDW (11.5 - 14.5 %) 18.5 H Plt Count (130 - 400 /CUMM) 165 MPV (7.4 - 10.4 FL) 8.6 Gran % (42.2 - 75.2 %) 69.2 Lymphocytes % (20.5 - 51.1 %) 14.5 L Monocytes % (1.7 - 9.3 %) 13.3 H Eosinophils % (0 - 5 %) 2.7 Basophils % (0.0 - 2.0 %) 0.3 Absolute Granulocytes (1.4 - 6.5 /CUMM) 7.0 H Absolute Lymphocytes (1.2 - 3.4 /CUMM) 1.5 Absolute Monocytes (0.10 - 0.60 /CUMM) 1.3 H Absolute Eosinophils (0.0 - 0.7 /CUMM) 0.3 Absolute Basophils (0.0 - 0.2 /CUMM) 0 PUBS MCHC (33.0 - 37.0 G/DL) 32.7 L Urines Urine Color (YEL,AMB,STR) YEL Urine Clarity (CLEAR) HAZY H Urine pH (5.0 - 8.0) 6.0 Ur Specific [place] (1.001 - 1.035) 1.020 Urine Protein (NEG,<30 MG/DL) TRACE H Urine Ketones (NEG) NEG Urine Nitrite (NEG) NEG Urine Bilirubin (NEG) NEG Urine Urobilinogen (0.1 - 1.0 EU/dl) 0.2 Ur Leukocyte Esterase (NEG) SMALL H Ur Microscopic SEDIMENT EXAMINED Urine RBC (0 - 5 /HPF) 3-5 Urine WBC (0 - 2 /HPF) 50-75 H Ur Epithelial Cells (NONE,FEW) FEW Urine Bacteria (NEG/NONE) MANY H Urine Hemoglobin (NEG) SMALL H Urine Glucose (N MG/DL) NEG 02/21 02/21 2225 2223 Coagulation APTT (25 - 37 SEC) 78 H Hematology CBC w Diff MAN DIFF ORDERED WBC (4.8 - 10.8 /CUMM) 10.8 RBC (4.20 - 5.40 /CUMM) 2.58 L Hgb (12.0 - 16.0 G/DL) 7.7 L Hct (37 - 47 %) 23.3 L MCV (81.0 - 99.0 FL) 90.1 MCH (27.0 - 31.0 PG) 29.9 RDW (11.5 - 14.5 %) 18.1 H Plt Count (130 - 400 /CUMM) 163 MPV (7.4 - 10.4 FL) 8.3 Gran % (42.2 - 75.2 %) 69.2 Lymphocytes % (20.5 - 51.1 %) 17.4 L Monocytes % (1.7 - 9.3 %) 13.1 H Eosinophils % (0 - 5 %) 0.1 Basophils % (0.0 - 2.0 %) 0.2 Absolute Granulocytes (1.4 - 6.5 /CUMM) 7.5 H Absolute Lymphocytes (1.2 - 3.4 /CUMM) 1.9 Absolute Monocytes (0.10 - 0.60 /CUMM) 1.4 H Absolute Eosinophils (0.0 - 0.7 /CUMM) 0 Absolute Basophils (0.0 - 0.2 /CUMM) 0 Platelet Estimate (ADEQUATE) ADEQUATE Normochromic RBCs VERIFIED Anisocytosis 1+ Macrocytic Cells FEW PUBS MCHC (33.0 - 37.0 G/DL) 33.1 Assessment/Plan Assessment/Plan Pt is an 86yo F , now postoperative day #3 status post ORIF of the right hip. Her postoperative course was not complicated by pulmonary edema, requiring diuresis and BiPAP. Patient otherwise remains stable from a surgical standpoint. Plan: -Continue physical therapy for mobilization as her pulmonary status allows it. -Continue pain control. -Continue xarelto for A. fib and DVT prophylaxis. -Continue dry dressing change once daily. It was done today by me. -Continue medical management per primary team. -Will sign off from a surgical standpoint. Please let us know if further assistance is needed.
[2017-02-23 08:00] VITALS: BP 104/58
--- NOTE | 2017-02-23 08:12 | PN- Housestaff ---
Subjective Follow-up For: rt. hip fracture POD 1 s/p right hip percutaneous pinning A.fib Complaints: Difficulty breathing Tele-Events Since Last Visit: Over night 7 runs of V.tach Now she is on A.fib Subjective: Patient seen and examined, on Bipap, overnight event noted, she is awake, alert, denies any pain. Her vitals in the morning: P 114, O2:98%, afebrile Review of Systems Constitutional: Reports: no symptoms. EENTM: Reports: no symptoms. Cardiovascular: Reports: no symptoms. Respiratory: Reports: short of breath. Gastrointestinal: Reports: no symptoms. Genitourinary: Reports: no symptoms. Musculoskeletal: Reports: joint pain. Skin: Reports: no symptoms. Objective Last 24 Hrs of Vital Signs/I&O Vital Signs Date Time Temp Pulse Resp B/P Pulse O2 O2 Flow FiO2 Ox Delivery Rate 02/23 0637 114 98 02/23 0413 98.2 97 20 114/54 97 Nasal Cannula 02/23 0120 97.5 108 20 106/58 98 Nasal Cannula 02/23 0000 Nasal 3.0L Cannula 02/22 2303 112 118/60 02/22 2302 112 118/60 02/22 2102 98.2 106 20 118/58 99 Nasal 3.0L Cannula 02/22 1530 98.1 89 20 112/60 99 Nasal 3.0L Cannula 02/22 1200 90/50 02/22 0842 96 Nasal 2.0L Cannula Intake & Output 02/23 1600 02/23 0800 02/23 0000 Intake Total 500 Output Total 350 Balance 150 Intake, IV 200 Intake, Oral 300 Output, Urine 350 Physical Exam General Appearance: Alert, Cooperative, Mild Distress Skin: No Rashes, No Breakdown, No Significant Lesion HEENT: PERRLA, EOMI, Mucous Membr. moist/pink Neck: Supple, No JVD Cardiovascular: Normal S1, Normal S2 Lungs: Bibasilar crackles Abdomen: Normal Bowel Sounds, Soft, No Tenderness Neurological: Strength at 5/5 X4 Ext, Normal Tone, Sensation Intact Extremities: No Edema, Normal Pulses Current Medications: Current Medications Sig/Timi Start time Last Medication Dose Route Stop Time Status Admin Acetaminophen 325 MG Q6P PRN 02/19 1145 AC PO Albuterol Sulfate 3 ML Q4P PRN 02/19 1715 AC INH Albuterol Sulfate 3 ML Q4H PRN 02/19 1330 AC 02/23 INH 0600 Bisacodyl 10 MG DAILY PRN 02/19 1600 AC NV Cholecalciferol 1,000 IU DAILY 02/19 1300 AC 02/22 PO 1035 Dicyclomine HCl 20 MG 4 TIMES/DAY PRN 02/19 1330 AC PO Diltiazem HCl 30 MG BID 02/19 2200 AC 02/22 PO 2302 Furosemide 20 MG ONCE ONE 02/23 0630 DC 02/23 IV 02/23 0631 0623 Levothyroxine Sodium 0.125 MG 0600 02/20 0600 AC 02/23 PO 0527 Magnesium Hydroxide 30 ML DAILY PRN 02/19 1615 AC PO Magnesium Sulfate 1 GM Q2H 02/23 0645 AC 02/23 Dextrose/Water 100 ML IV 02/23 1044 0641 Metoprolol Tartrate 25 MG BID 02/21 2200 AC 02/22 PO 2303 Mirabegron 25 MG 2200 02/22 2200 AC 02/22 PO 2259 Mirabegron 25 MG DAILY 02/20 1000 DC 02/21 PO 1518 Multivitamins 1 TAB DAILY 02/19 1558 AC 02/22 Therapeutic PO 1035 Nitrofurantoin 50 MG Q6 02/22 0807 DC PO Ondansetron HCl 4 MG Q8H PRN 02/19 1600 AC PO Oxycodone/ 1 TAB Q6P PRN 02/21 1515 AC 02/22 Acetaminophen PO 2003 Pantoprazole Sodium 40 MG BID 02/20 2248 AC 02/22 IV 2259 Polyethylene Glycol 17 GM DAILY 02/21 1000 AC 02/22 PO 1032 Potassium Chloride 40 MEQ Q20H 02/20 0830 DC 02/22 Dextrose/Sodium 1,000 ML IV 0557 Chloride Potassium Chloride 20 MEQ DAILY 02/19 1311 AC 02/22 PO 1034 Rivaroxaban 15 MG 1700 02/21 1700 AC 02/22 PO 1745 Senna/Docusate Sodium 1 TAB BID 02/19 2200 AC 02/22 PO 2258 Tiotropium [place] 1 PUF DAILY 02/19 1253 AC 02/22 INH 1032 Trazodone HCl 25 MG BID PRN 02/19 1600 AC PO Vancomycin HCl 1,000 MG DAILY 02/22 1000 CAN Sodium Chloride 250 ML IV Last 24 Hrs of Lab/Bill Results Last 24 Hrs of Labs/Mics: Laboratory Tests 02/23/17 0530: Anion Gap 3 L, Estimated GFR > 60, BUN/Creatinine Ratio 18.8, Magnesium 1.5 L, Troponin I < 0.01, CBC w Diff NO MAN DIFF REQ, RBC 2.70 L, MCV 90.4, MCH 29.5, RDW 18.3 H, MPV 8.3, Gran % 63.3, Lymphocytes % 17.2 L, Monocytes % 12.0 H, Eosinophils % 7.0 H, Basophils % 0.5, Absolute Granulocytes 5.8, Absolute Lymphocytes 1.6, Absolute Monocytes 1.1 H, Absolute Eosinophils 0.6, Absolute Basophils 0, PUBS MCHC 32.7 L 02/22/17 1135: Urine Color YEL, Urine Clarity HAZY H, Urine pH 6.0, Ur Specific [place] 1.020, Urine Protein TRACE H, Urine Ketones NEG, Urine Nitrite NEG, Urine Bilirubin NEG, Urine Urobilinogen 0.2, Ur Leukocyte Esterase SMALL H, Ur Microscopic SEDIMENT EXAMINED, Urine RBC 3-5, Urine WBC 50-75 H, Ur Epithelial Cells FEW, Urine Bacteria MANY H, Urine Hemoglobin SMALL H, Urine Glucose NEG Assessment/Plan Assessment: 86 yo female with pmh of A.fib on xarelto, CAD, HFpEF (EF 65%) with pulmonary HTN, 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 displaced femoral neck fracture s/p fall. 1. Rt. displaced femoral neck fracture s/p fall: S/P right hip percutaneous pinning, pain is improving 2. A.fib on xarelto:On Xarelto, overnight had 7 runs of vtach, and respiratory distress, she was given Lasix and now on Bipap. Metoprolol dose increased per stevedore hold to 50mg BID. 3. HFpEF with PAH: Will start low dose lasix, will avoid overdiuresis, as that will decrease blood pressure and increase HR. 4. Asthma/COPD: She's is not on home oxygen (only as needed). Currently on Bipap for desaturation overnight 5. hypothyroidism: c/w home dose levothyroxine 0.125mg daily. 6. 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 She has patent Rt. port-a-cath. Stable. ALP is elevated likely from bone metasis. 7. Transaminitis: most likely from chemotherapy. Ultrasound abdomen was unremarkable. LFT is trending down. 8. Hypokalemia/hyponatremia/ resolved: Will hold Kcl for now 9.Positive urine cx. for E.coli: the case discussed with attending who recommend to reapeat UA, watch off antibiotic for now. 10. Lt. foot pain: X-ray showed no active fracture, she had arthritis which most likely acting up with her acute illness. DVT ppx: IV heparin, ALPS DNR/I, but pt will be full code when she's getting surgery. Pain pathway NPO after MN for surgery. Problem List: 1. ATRIAL FIBRILATION 2. ARTHRITIS 3. COPD 4. Diastolic heart failure 5. Impacted fracture of right hip 6. Dyspnea Pain Ratin Pain Location: - Pain Goal: Remain pain free Pain Plan: - Tomorrow's Labs & Rationales: cbc, bep DVT/Prophylaxis: pharmacological Consulting Request: Consulting Specialty: Cardiology Consulting Physician: Dr. Neal Reason for Consult: Pre-op evaluation
--- NOTE | 2017-02-23 08:53 | NUR ---
02/23/17 AT 0530 WHILE THIS RN OUTSOLE CEMENTER WAS GETTING THE PATIENT OFF THE BED [place], THE PATIENT STATED SHE IS HAVING DIFFICULTY BREAHING, BUT THERE WAS NO DISTRESS NOTED AT THAT TIME. RN CALLED RESPIRATORY AND REQUESTED NEB TX. WHEN THE RESPIRATORY THERAPIST ARRIVED, THE PATIENT'S BREATHING WAS BECOMING LABORED. AUDIBLE WHEEZE. VS TAKEN: BP 168/90. RESP 35. HR 140'S. O2 SAT 84% VIA 3L NC. DURING PATIENT ASSESSEMT, SHE HAD A 10 BEAT OF V-TACH AT 0600 THEN 4 BEAT V-TACH THEN 7 BEAT V-TACH. PATIENT DENIED CHEST PAIN BUT STATED KNOTTED NECK PAIN. MD WAS NOTIFIED. PATIENT'S SON GLORIA WAS NOTIFIED (LEFT A MESSAGE TO CALL HOSPITAL). O2 INCREASED TO 6L. PT PLACED ON BIPAP, IV LASIX 20MG GIVEN, EKG, CXRAY DONE PER MD CRUZ. AFTER THE EXTENSIVE TX, THE PATIENT'S CONDITION IMPROVED. BREATHING BECAME NORMAL. RESP 25. O2 SAT 96%. BP 114/62. PATIENT STATED "I FEEL BETTER". NO DISTRESS WAS NOTED AT THIS TIME. THE PATIENT CONTINUES THE BIPAP TX. RN CONTINUES TO MONITOR.
--- NOTE | 2017-02-23 09:30 | PN- Cardiology ---
Subjective Subjective: * Patient complains of discomfort in her right hip with movement. She is worn out and on BIPAP at the present time. No chest discomfort. * Atrial fibrillation with increased heart rate. * No evidence of VT. The rhythm thought to be VT was artifact. * decreased H/H of 07/05 Objective Vital Signs and I&Os Vital Signs Date Time Temp Pulse Resp B/P Pulse O2 O2 Flow FiO2 Ox Delivery Rate 02/23 0859 97 BIPAP 40% 02/23 0858 112 97 02/23 0800 97.6 110 24 104/58 97 BIPAP 02/23 0637 114 98 02/23 0413 98.2 97 20 114/54 97 Nasal Cannula 02/23 0120 97.5 108 20 106/58 98 Nasal Cannula 02/23 0000 Nasal 3.0L Cannula 02/22 2303 112 118/60 02/22 2302 112 118/60 02/22 2102 98.2 106 20 118/58 99 Nasal 3.0L Cannula 02/22 1530 98.1 89 20 112/60 99 Nasal 3.0L Cannula 02/22 1200 90/50 Intake & Output 02/23 1600 02/23 0800 02/23 0000 02/22 1600 02/23 0800 02/22 0000 Intake Total 520 500 233 673 4636 Output Total 200 350 250 150 551 Balance 320 150 630 490 529 Intake, IV 400 200 400 400 400 Intake, Oral 120 300 480 240 680 Number 1 0 1 Bowel Movements Output, Stool 1 Output, Urine 200 350 250 150 550 Physical Exam: General: WD/ WN female in NAD; alert and oriented x 3 Neck: no JVD, no carotid bruit Heart: irregularly irregular, no murmur Lungs: decreased air movement at bases without crackles Extremties: no edema Assessment/Plan Assessment/Plan * Patient is tachycardic due to backing off on her beta durga and calcium channel durga. This was presumably done due to a borderline BP. Increase Metoprolol to 50mg BID. continue her current dose of Cardizem. * This patient had artifact. There is no evidence of ventricular tachycardia. * Add Lasix 20mg PO daily. Do not overdiurese as this will only lead to hypotension and tachycardia. Follow O2 sats and symptoms. * Continue Xarelto for stroke and DVT prophylaxis while following her H/H. Her tachycardia is also likely contributed to by anemia and pain. If her H/H drops any more I would transfuse one units of pRBC's. Continue telemetry? Yes
--- NOTE | 2017-02-23 09:32 | PN- Att Addend ---
Attending Addendum Attending Brief Note Patient hypoxic to 84% this morning requiring BiPAP. On evaluation she is awake and alert us and for her son. She complains of pain in the hip. Skin: Grossly normal HEENT: PEERLA Neck: Supple, No JVD Cardiovascular: Regular Rate, Normal S1, Normal S2, No Murmurs Lungs: Decreased air entry Abdomen: Soft non tender abdomen, normal bowel sounds Neurological: Normal Speech, Strength at 5/5 X4 Ext, Cranial Nerves 3-12 NL, Reflexes 2+ Extremities: Right foot tenderness Vascular: Normal Pulses Assessment Patient hypoxic secondary to fluid overload. Her Lasix has been held for last few days secondary to low blood pressure. Chest x-ray shows pulmonary edema. We will diurese her and discontinue IV fluids. X-ray foot negative. Enterococcus in the urine likely colonization and she is being followed off antibiotics. We'll continue supportive care. Anemia likely secondary to postoperative blood loss. We will transfuse for hemoglobin less than 8. Plan IV Lasix 20 once now and repeat if necessary later today Resume by mouth Lasix from a.m. Monitor off antibiotics Transfuse for hemoglobin less than 8 Guaiac stools Continue current pain meds Hold beta blockers for low blood pressure Continue xarelto Continue other home medications Current Medications Sig/Timi Start time Last Medication Dose Route Stop Time Status Admin Acetaminophen 325 MG Q6P PRN 02/19 1145 AC PO Albuterol Sulfate 3 ML Q4P PRN 02/19 1715 AC INH Albuterol Sulfate 3 ML Q4H PRN 02/19 1330 AC 02/23 INH 0600 Bisacodyl 10 MG DAILY PRN 02/19 1600 AC HI Cholecalciferol 1,000 IU DAILY 02/19 1300 AC 02/22 PO 1035 Dicyclomine HCl 20 MG 4 TIMES/DAY PRN 02/19 1330 AC PO Diltiazem HCl 30 MG BID 02/19 2200 AC 02/22 PO 2302 Furosemide 20 MG ONCE ONE 02/23 0630 DC 02/23 IV 02/23 0631 0623 Levothyroxine Sodium 0.125 MG 0600 02/20 0600 AC 02/23 PO 0527 Magnesium Hydroxide 30 ML DAILY PRN 02/19 1615 AC PO Magnesium Sulfate 1 GM Q2H 02/23 0645 AC 02/23 Dextrose/Water 100 ML IV 02/23 1044 0831 Metoprolol Tartrate 25 MG BID 02/21 2200 AC 02/22 PO 2303 Mirabegron 25 MG 2200 02/22 2200 AC 02/22 PO 2259 Mirabegron 25 MG DAILY 02/20 1000 DC 02/21 PO 1518 Multivitamins 1 TAB DAILY 02/19 1558 AC 02/22 Therapeutic PO 1035 Ondansetron HCl 4 MG Q8H PRN 02/19 1600 AC PO Oxycodone/ 1 TAB Q6P PRN 02/21 1515 AC 02/22 Acetaminophen PO 2003 Pantoprazole Sodium 40 MG BID 02/20 2248 AC 02/22 IV 2259 Polyethylene Glycol 17 GM DAILY 02/21 1000 AC 02/22 PO 1032 Potassium Chloride 40 MEQ Q20H 02/20 0830 DC 02/22 Dextrose/Sodium 1,000 ML IV 0557 Chloride Potassium Chloride 20 MEQ DAILY 02/19 1311 AC 02/22 PO 1034 Rivaroxaban 15 MG 1700 02/21 1700 AC 02/22 PO 1745 Senna/Docusate Sodium 1 TAB BID 02/19 220 AC 02/22 PO 2258 Tiotropium [place] 1 PUF DAILY 02/19 1253 AC 02/22 INH 1032 Trazodone HCl 25 MG BID PRN 02/19 1600 AC PO Laboratory Tests 02/23 02/23 0806 0530 Blood Gas pH (7.35 - 7.45 PH) 7.41 pCO2 (35 - 45 TORR) 41 pO2 (80 - 100 TORR) 163 H HCO3 (21 - 28 MEQ/L) 25 ABG O2 Sat (Measured) (>96.0 %) 98.0 P-50 (Temp Corrected) N Carboxyhemoglobin (1.5 - 5.0 %) 0.5 L O2 Concentration % 50 Temperature (97.0 - 100.0 FARH) 98.2 Respiration Rate (BPM) 24 O2 Delivery Method BIPAP Vent Mode ST Expiratory Pressure (CM H2O P) 6 Inspiratory Pressure (CM H2O P) 16 Chemistry Sodium (137 - 145 mmol/L) 134 L Potassium (3.5 - 5.1 mmol/L) 5.2 H Chloride (98 - 107 mmol/L) 101 Carbon Dioxide (22 - 30 mmol/L) 29 Anion Gap (5 - 16) 3 L BUN (7 - 17 mg/dL) 15 Creatinine (0.5 - 1.0 mg/dL) 0.8 Estimated GFR (>60 ml/min) > 60 BUN/Creatinine Ratio (7 - 25 %) 18.8 Magnesium (1.6 - 2.3 mg/dL) 1.5 L Troponin I (< 0.11 ng/ml) < 0.01 Hematology CBC w Diff NO MAN DIFF REQ WBC (4.8 - 10.8 /CUMM) 9.2 RBC (4.20 - 5.40 /CUMM) 2.70 L Hgb (12.0 - 16.0 G/DL) 8.0 L Hct (37 - 47 %) 24.4 L MCV (81.0 - 99.0 FL) 90.4 MCH (27.0 - 31.0 PG) 29.5 RDW (11.5 - 14.5 %) 18.3 H Plt Count (130 - 400 /CUMM) 197 MPV (7.4 - 10.4 FL) 8.3 Gran % (42.2 - 75.2 %) 63.3 Lymphocytes % (20.5 - 51.1 %) 17.2 L Monocytes % (1.7 - 9.3 %) 12.0 H Eosinophils % (0 - 5 %) 7.0 H Basophils % (0.0 - 2.0 %) 0.5 Absolute Granulocytes (1.4 - 6.5 /CUMM) 5.8 Absolute Lymphocytes (1.2 - 3.4 /CUMM) 1.6 Absolute Monocytes (0.10 - 0.60 /CUMM) 1.1 H Absolute Eosinophils (0.0 - 0.7 /CUMM) 0.6 Absolute Basophils (0.0 - 0.2 /CUMM) 0 PUBS MCHC (33.0 - 37.0 G/DL) 32.7 L Miscellaneous Phlebotomy Draw Site LEFT RADIAL 02/22 1135 Urines Urine Color (YEL,AMB,STR) YEL Urine Clarity (CLEAR) HAZY H Urine pH (5.0 - 8.0) 6.0 Ur Specific [place] (1.001 - 1.035) 1.020 Urine Protein (NEG,<30 MG/DL) TRACE H Urine Ketones (NEG) NEG Urine Nitrite (NEG) NEG Urine Bilirubin (NEG) NEG Urine Urobilinogen (0.1 - 1.0 EU/dl) 0.2 Ur Leukocyte Esterase (NEG) SMALL H Ur Microscopic SEDIMENT EXAMINED Urine RBC (0 - 5 /HPF) 3-5 Urine WBC (0 - 2 /HPF) 50-75 H Ur Epithelial Cells (NONE,FEW) FEW Urine Bacteria (NEG/NONE) MANY H Urine Hemoglobin (NEG) SMALL H Urine Glucose (N MG/DL) NEG Vital Signs Date Time Temp Pulse Resp B/P Pulse O2 O2 Flow FiO2 Ox Delivery Rate 02/23 0859 97 BIPAP 40% 02/23 0858 112 97 02/23 0800 97.6 110 24 104/58 97 BIPAP 02/23 0637 114 98 02/23 0413 98.2 97 20 114/54 97 Nasal Cannula 02/23 0120 97.5 108 20 106/58 98 Nasal Cannula 02/23 0000 Nasal 3.0L Cannula 02/22 2303 112 118/60 02/22 2302 112 118/60 02/22 2102 98.2 106 20 118/58 99 Nasal 3.0L Cannula 02/22 1530 98.1 89 20 112/60 99 Nasal 3.0L Cannula 02/22 1200 90/50
--- NOTE | 2017-02-23 11:47 | NUR ---
Physical Therapy. Pt currently on BIPAP 40% and resting soundly. Pt's son reports this is the first sound sleep she has had since onset of increased SOB. PT will f/u as appropriate.
[2017-02-23 12:00] VITALS: BP 100/60
[2017-02-23 16:20] VITALS: BP 108/66
[2017-02-23 23:59] VITALS: BP 104/50
--- NOTE | 2017-02-24 07:14 | PN- Housestaff ---
FATIMAH,[facility] 02/24/17 0713: Subjective Follow-up For: rt. hip fracture POD 1 s/p right hip percutaneous pinning A.fib Complaints: SOB pain Subjective: Patient seen and examined, she is lying on the bed with 3.5 L nasal cannula in place, increase work of breathing but her O2 sat 96, she couldn't tolerate Bipap overnight. She have some cough with clear phlegm, she denies chest pain, N/V, Palpitation and there is no change in urinary or bowel habits. She complaind of pain over the right hip and back at the site of skin break (Early stage decubitus ulcer, which is better after the area cleaned and a cream applied. Review of Systems Constitutional: Reports: no symptoms. EENTM: Reports: no symptoms. Cardiovascular: Reports: no symptoms. Respiratory: Reports: cough, short of breath, sputum production. Gastrointestinal: Reports: no symptoms. Genitourinary: Reports: no symptoms. Musculoskeletal: Reports: no symptoms. Skin: Reports: no symptoms. Neurological/Psychological: Reports: no symptoms. Objective Last 24 Hrs of Vital Signs/I&O Vital Signs Date Time Temp Pulse Resp B/P Pulse O2 O2 Flow FiO2 Ox Delivery Rate 02/24 0036 102 98 02/24 0000 96 Nasal 3.5L Cannula 02/23 2359 98.0 95 18 104/50 99 Nasal Cannula 02/23 2250 102 100/52 02/23 2249 102 100/48 02/23 2230 98 Nasal 3.0L Cannula 02/23 1837 98 Nasal 3.0L Cannula 02/23 1620 98.7 83 20 108/66 97 Nasal 4.0L Cannula 02/23 1600 94 Nasal 3.0L Cannula 02/23 1600 98 Nasal 3.5L Cannula 02/23 1424 74 99 02/23 1200 98.2 96 20 100/60 98 BIPAP 40% 02/23 1035 110 92 02/23 1012 97.6 110 24 150/70 02/23 1012 97.6 110 24 150/70 02/23 1003 110 94 02/23 0859 97 BIPAP 40% 02/23 0858 112 97 02/23 0800 93 BIPAP 40% 02/23 0800 97.6 110 24 104/58 97 BIPAP Intake & Output 02/24 0800 02/24 0000 02/23 1600 Intake Total 360 360 Output Total 425 850 150 Balance -65 -850 210 Intake, IV 240 Intake, Oral 360 120 Number 1 Bowel Movements Output, Urine 425 850 150 Physical Exam General Appearance: Alert, Cooperative, Moderate Distress Skin: No Rashes, No Breakdown HEENT: PERRLA, EOMI Neck: Supple, No JVD Cardiovascular: Normal S1, Normal S2 Lungs: Decrease air entry B/L with scattered crackle at bases Abdomen: Normal Bowel Sounds, Soft, No Tenderness Extremities: No Edema Vascular: Normal Pulses, Pulses Symmetrical Current Medications: Current Medications Sig/Timi Start time Last Medication Dose Route Stop Time Status Admin Acetaminophen 325 MG Q6P PRN 02/19 1145 AC PO Albuterol Sulfate 3 ML Q4P PRN 02/19 1715 AC INH Albuterol Sulfate 3 ML Q4H PRN 02/19 1330 AC 02/23 INH 0600 Bisacodyl 10 MG DAILY PRN 02/19 1600 AC [place] Cholecalciferol 1,000 IU DAILY 02/19 1300 AC 02/23 PO 1011 Dicyclomine HCl 20 MG 4 TIMES/DAY PRN 02/19 1330 AC PO Diltiazem HCl 30 MG BID 02/19 2200 AC 02/23 PO 2249 Furosemide 20 MG DAILY 02/24 1000 AC PO Furosemide 20 MG ONCE ONE 02/23 1030 DC 02/23 IV 02/23 1031 1327 Levothyroxine Sodium 0.125 MG 0600 02/20 0600 AC 02/24 PO 0646 Magnesium Hydroxide 30 ML DAILY PRN 02/19 1615 AC PO Magnesium Sulfate 1 GM Q2H 02/23 0645 DC 02/23 Dextrose/Water 100 ML IV 02/23 1044 0831 Metoprolol Tartrate 50 MG BID 02/23 2200 AC PO Metoprolol Tartrate 25 MG BID 02/21 220 DC 02/23 PO 1012 Mirabegron 25 MG 2200 02/22 2200 AC 02/23 PO 2249 Multivitamins 1 TAB DAILY 02/19 1558 AC 02/23 Therapeutic PO 1012 Ondansetron HCl 4 MG Q8H PRN 02/19 1600 AC PO Oxycodone/ 1 TAB Q6P PRN 02/21 1515 AC 02/22 Acetaminophen PO 2003 Pantoprazole Sodium 40 MG BID 02/20 2248 AC 02/23 IV 2249 Polyethylene Glycol 17 GM DAILY 02/21 1000 AC 02/23 PO 1018 Potassium Chloride 20 MEQ DAILY 02/19 1311 AC 02/23 PO 1011 Rivaroxaban 15 MG 1700 02/21 1700 AC 02/23 PO 1731 Senna/Docusate Sodium 1 TAB BID 02/19 2200 AC 02/23 PO 2249 Tiotropium [place] 1 PUF DAILY 02/19 1253 AC 02/23 INH 1012 Trazodone HCl 25 MG BID PRN 02/19 1600 AC 02/23 PO 2301 Last 24 Hrs of Lab/Bill Results Last 24 Hrs of Labs/Mics: Laboratory Tests 02/23/17 1430: Troponin I 0.02 02/23/17 0806: pH 7.41, pCO2 41, pO2 163 H, HCO3 25, ABG O2 Sat (Measured) 98.0, P-50 (Temp Corrected) N, Carboxyhemoglobin 0.5 L, O2 Concentration % 50, Temperature 98.2, Respiration Rate 24, O2 Delivery Method BIPAP, Vent Mode ST, Expiratory Pressure 6, Inspiratory Pressure 16, Phlebotomy Draw Site LEFT RADIAL Assessment/Plan Assessment: 86 yo female with pmh of A.fib on xarelto, CAD, HFpEF (EF 65%) with pulmonary HTN, 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 displaced femoral neck fracture s/p fall. 1. Rt. displaced femoral neck fracture s/p fall: S/P right hip percutaneous pinning, pain is improving surgical team signed off, she is needs a follow up appointment with surgion in 1 week. 2. A.fib on xarelto:On Xarelto, overnight had 7 runs of vtach, and respiratory distress, she was given Lasix and now on Bipap. Metoprolol dose increased per industrial relations specialist to 50mg BID. Need to monitor her heart rate and blood pressure closely. 3. HFpEF with PAH: Will start low dose lasix, will avoid overdiuresis, as that will decrease blood pressure and increase HR. 4. Asthma/COPD: She's is not on home oxygen (only as needed). Currently on Bipap for desaturation overnight 5. hypothyroidism: c/w home dose levothyroxine 0.125mg daily. 6. 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 She has patent Rt. port-a-cath. Stable. ALP is elevated likely from bone metasis. 7. Transaminitis: most likely from chemotherapy. Ultrasound abdomen was unremarkable. LFT is trending down. 8. Hypokalemia/hyponatremia/ resolved: Will hold Kcl for now 9.Positive urine cx. for E.coli: the case discussed with attending who recommend to reapeat UA, watch off antibiotic for now. 10. Lt. foot pain: X-ray showed no active fracture, she had arthritis which most likely acting up with her acute illness. 11.Anemia: If her Hgb dropped <7 please transfuse DVT ppx: IV heparin, ALPS DNR/I, but pt will be full code when she's getting surgery. Pain pathway NPO after MN for surgery. Problem List: 1. ATRIAL FIBRILATION 2. ARTHRITIS 3. Shortness of breath Pain Ratin Pain Location: - Pain Goal: Remain pain free Pain Plan: 0 Tomorrow's Labs & Rationales: cbc, bep DVT/Prophylaxis: pharmacological Consulting Request: Consulting Specialty: Cardiology Consulting Physician: Dr. Neal Reason for Consult: Pre-op evaluation TERE ORDONEZ MD 02/24/17 1203: Objective Last 24 Hrs of Vital Signs/I&O Vital Signs Date Time Temp Pulse Resp B/P Pulse O2 O2 Flow FiO2 Ox Delivery Rate 02/24 0936 98.2 82 18 110/60 02/24 0935 82 110/60 02/24 0825 98.2 82 18 118/78 97 Nasal 3.0L Cannula 02/24 0036 102 98 02/24 0000 96 Nasal 3.5L Cannula 02/23 2359 98.0 95 18 104/50 99 Nasal Cannula 02/23 2250 102 100/52 02/23 2249 102 100/48 02/23 2230 98 Nasal 3.0L Cannula 02/23 1837 98 Nasal 3.0L Cannula 02/23 1620 98.7 83 20 108/66 97 Nasal 4.0L Cannula 02/23 1600 94 Nasal 3.0L Cannula 02/23 1600 98 Nasal 3.5L Cannula 02/23 1424 74 99 Intake & Output 02/24 1600 02/24 0800 02/24 0000 Intake Total 360 Output Total 425 850 Balance -65 -850 Intake, Oral 360 Number 1 Bowel Movements Output, Urine 425 850 Attending MD Review Statement Attending Statement Attending MD Statement: examined this patient, discuss w/resident/PA/DATA ENTRY OPERATOR, agreed w/resident/PA/DATA ENTRY OPERATOR, reviewed EMR data (avail), reviewed images, amended to note Attending Assessment/Plan: Mrs. Saldana appears to be improving with the institution of low-dose furosemide. She did have an episode of increased respiratory distress which responded to BiPAP. Ventricular arrhythmia was noted at this time. She remains mildly to moderately dyspneic. Her anterior chest exam however is benign. Sounds are distant but irregular. Her abdomen is mildly tender to palpation. Extremities are without edema. Her H&H is 7.9/24.3 and her electrolytes are stable. We should continue her present furosemide dose. I would follow her H&H and if any further decreases noted I would transfuse her. We should continue her other chronic medications.
[2017-02-24 08:25] VITALS: BP 118/78
[2017-02-24 09:01] LABS: ABSOLUTE BASOPHIL COUNT 0 /CUMM (0.0-0.2); ABSOLUTE EOSINOPHIL COUNT 0.5 /CUMM (0.0-0.7); ABSOLUTE GRANULOCYTE CT 4.8 /CUMM (1.4-6.5); ABSOLUTE LYMPH COUNT 1.9 /CUMM (1.2-3.4); ABSOLUTE MONOCYTE COUNT 1.1 /CUMM (0.10-0.60); BASOPHIL % 0.4 % (0.0-2.0); EOSINOPHIL % 6.2 % (0-5); HEMATOCRIT 24.3 % (37-47); MEAN CORPUSCULAR HGB 29.3 PG (27.0-31.0); MEAN CORPUSCULAR HGB CONC 32.7 G/DL (33.0-37.0); MEAN CORPUSCULAR VOLUME 89.8 FL (81.0-99.0); MEAN PLATELET VOLUME 8.1 FL (7.4-10.4); PLATELET COUNT 208 /CUMM (130-400); RBC DISTRIBUTION WIDTH 18.2 % (11.5-14.5); WHITE BLOOD CELL COUNT 8.3 /CUMM (4.8-10.8)
--- NOTE | 2017-02-24 11:09 | PN- Orthopedic ---
Surgical Brief Attending Note Brief Attending Note: Resting well AVSS RLE - incision c/d/i A/P - s/p right hip perc pinning WBAT Follow up 2 weeks postop Continue PT
[2017-02-24 13:00] VITALS: BP 122/50
--- NOTE | 2017-02-24 14:50 | PN- Cardiology ---
Subjective Subjective: no obvious clinical change today. No new cardiac symptoms. Persistent hip discomfort. Heart rate better controlled today. Objective Vital Signs and I&Os Vital Signs Date Time Temp Pulse Resp B/P Pulse O2 O2 Flow FiO2 Ox Delivery Rate 02/24 1359 94 Nasal 3.0L Cannula 02/24 1300 97.6 68 18 122/50 97 Nasal 3.0L Cannula 02/24 0936 98.2 82 18 110/60 02/24 0935 82 110/60 02/24 0825 98.2 82 18 118/78 97 Nasal 3.0L Cannula 02/24 0800 96 Nasal 2.0L Cannula 02/24 0036 102 98 02/24 0000 96 Nasal 3.5L Cannula 02/23 2359 98.0 95 18 104/50 99 Nasal Cannula 02/23 2250 102 100/52 02/23 2249 102 100/48 02/23 2230 98 Nasal 3.0L Cannula 02/23 1837 98 Nasal 3.0L Cannula 02/23 1620 98.7 83 20 108/66 97 Nasal 4.0L Cannula 02/23 1600 94 Nasal 3.0L Cannula 02/23 1600 98 Nasal 3.5L Cannula Intake & Output 02/24 1600 02/24 0800 02/24 0000 02/23 1600 02/23 0800 02/23 0000 Intake Total 480 360 360 520 500 Output Total 425 850 150 200 350 Balance 480 -65 -850 210 320 150 Intake, IV 240 400 200 Intake, Oral 480 360 120 120 300 Number 2 1 Bowel Movements Output, Urine 425 850 150 200 350 Current Medications: Current Medications Sig/Timi Start time Last Medication Dose Route Stop Time Status Admin Acetaminophen 325 MG Q6P PRN 02/19 1145 AC PO Albuterol Sulfate 3 ML Q4P PRN 02/19 1715 AC INH Albuterol Sulfate 3 ML Q4H PRN 02/19 1330 AC 02/23 INH 0600 Bisacodyl 10 MG DAILY PRN 02/19 1600 AC VT Cholecalciferol 1,000 IU DAILY 02/19 1300 AC 02/24 PO 0936 Dicyclomine HCl 20 MG 4 TIMES/DAY PRN 02/19 1330 AC PO Diltiazem HCl 30 MG BID 02/19 2200 AC 02/24 PO 0936 Furosemide 20 MG DAILY 02/24 1000 AC 02/24 PO 0936 Levothyroxine Sodium 0.125 MG 0600 02/20 0600 AC 02/24 PO 0646 Magnesium Hydroxide 30 ML DAILY PRN 02/19 1615 AC PO Metoprolol Tartrate 50 MG BID 02/23 2200 AC 02/24 PO 0935 Mirabegron 25 MG 0 02/22 2200 AC 02/23 PO 2249 Multivitamins 1 TAB DAILY 02/19 1558 AC 02/24 Therapeutic PO 0936 Ondansetron HCl 4 MG Q8H PRN 02/19 1600 AC PO Oxycodone/ 1 TAB Q6P PRN 02/21 1515 AC 02/24 Acetaminophen PO 0949 Pantoprazole Sodium 40 MG BID 02/20 2248 AC 02/24 IV 0936 Polyethylene Glycol 17 GM DAILY 02/21 1000 AC 02/24 PO 0936 Potassium Chloride 20 MEQ DAILY 02/19 1311 AC 02/24 PO 0935 Rivaroxaban 15 MG 1700 02/21 1700 AC 02/23 PO 1731 Senna/Docusate Sodium 1 TAB BID 02/19 2200 AC 02/24 PO 0936 Tiotropium [place] 1 PUF DAILY 02/19 1253 AC 02/24 INH 0936 Trazodone HCl 25 MG BID PRN 02/19 1600 AC 02/23 PO 2301 Results Last 48 Hrs of Labs/Mics: Laboratory Tests 02/24/17 0815: Anion Gap 8, Estimated GFR > 60, BUN/Creatinine Ratio 16.3, CBC w Diff NO MAN DIFF REQ, RBC 2.70 L, MCV 89.8, MCH 29.3, RDW 18.2 H, MPV 8.1, Gran % 58.0, Lymphocytes % 22.6, Monocytes % 12.8 H, Eosinophils % 6.2 H, Basophils % 0.4, Absolute Granulocytes 4.8, Absolute Lymphocytes 1.9, Absolute Monocytes 1.1 H, Absolute Eosinophils 0.5, Absolute Basophils 0, PUBS MCHC 32.7 L 02/23/17 1430: Troponin I 0.02 02/23/17 0806: pH 7.41, pCO2 41, pO2 163 H, HCO3 25, ABG O2 Sat (Measured) 98.0, P-50 (Temp Corrected) N, Carboxyhemoglobin 0.5 L, O2 Concentration % 50, Temperature 98.2, Respiration Rate 24, O2 Delivery Method BIPAP, Vent Mode ST, Expiratory Pressure 6, Inspiratory Pressure 16, Phlebotomy Draw Site LEFT RADIAL 02/23/17 0530: Anion Gap 3 L, Estimated GFR > 60, BUN/Creatinine Ratio 18.8, Magnesium 1.5 L, Troponin I < 0.01, CBC w Diff NO MAN DIFF REQ, RBC 2.70 L, MCV 90.4, MCH 29.5, RDW 18.3 H, MPV 8.3, Gran % 63.3, Lymphocytes % 17.2 L, Monocytes % 12.0 H, Eosinophils % 7.0 H, Basophils % 0.5, Absolute Granulocytes 5.8, Absolute Lymphocytes 1.6, Absolute Monocytes 1.1 H, Absolute Eosinophils 0.6, Absolute Basophils 0, PUBS MCHC 32.7 L Assessment/Plan Assessment/Plan Assessment: 1. Right femoral neck fracture post fall 2. Atrial fibrillation on anticoagulant therapy 3. HFpEF with pulmonary hypertension 4. History of COPD 5. Hypothyroidism 6. 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 Transaminitis Recommendations: -Continue current medication regimen. Heart rate better controlled today. -Continue to monitor her intakes, outputs, and daily weights. -Otherwise continue as per the medical team. Continue telemetry? Yes
[2017-02-24 16:06] VITALS: BP 101/46
[2017-02-24 23:29] VITALS: BP 104/50
[2017-02-25 08:14] LABS: ABSOLUTE BASOPHIL COUNT 0.1 /CUMM (0.0-0.2); ABSOLUTE EOSINOPHIL COUNT 0.6 /CUMM (0.0-0.7); ABSOLUTE GRANULOCYTE CT 4.3 /CUMM (1.4-6.5); ABSOLUTE LYMPH COUNT 2.1 /CUMM (1.2-3.4); BASOPHIL % 0.8 % (0.0-2.0); EOSINOPHIL % 7.8 % (0-5); GRANULOCYTE % 52.7 % (42.2-75.2); HEMATOCRIT 23.5 % (37-47); MEAN CORPUSCULAR HGB 29.4 PG (27.0-31.0); MEAN CORPUSCULAR HGB CONC 32.9 G/DL (33.0-37.0); MEAN CORPUSCULAR VOLUME 89.3 FL (81.0-99.0); MEAN PLATELET VOLUME 7.8 FL (7.4-10.4); PLATELET COUNT 231 /CUMM (130-400); RBC DISTRIBUTION WIDTH 17.7 % (11.5-14.5); RED BLOOD CELL CT 2.63 /CUMM (4.20-5.40); WHITE BLOOD CELL COUNT 8.1 /CUMM (4.8-10.8)
[2017-02-25 08:22] VITALS: BP 112/62
--- NOTE | 2017-02-25 09:25 | PN- Housestaff ---
Subjective Follow-up For: Atrial fibrillation, right displaced femoral neck fracture Complaints: no complaints Tele-Events Since Last Visit: Atrial fibrillation, heart rate 71-86, with some PVCs, no events. Subjective: I followed up and examined the patient today. She is resting comfortably in bed , does not have any complaints, vitals as mentioned above, otherwise no overnight issues. Review of Systems Constitutional: Reports: see HPI. Objective Last 24 Hrs of Vital Signs/I&O Vital Signs Date Time Temp Pulse Resp B/P Pulse O2 O2 Flow FiO2 Ox Delivery Rate 02/25 1636 98.7 85 20 102/53 100 Nasal 3.0L Cannula 02/25 1137 97 Nasal 3.0L Cannula 02/25 0925 100/42 02/25 0924 79 100/42 02/25 0822 97.8 79 19 112/62 100 Nasal 3.0L Cannula 02/25 0800 95 Nasal 3.0L Cannula 02/25 0000 Nasal 3.0L Cannula 02/24 2329 97.9 82 18 104/50 98 Nasal Cannula 02/24 2226 88 124/64 02/24 2226 88 124/64 02/24 2200 96 Nasal 3.0L Cannula Intake & Output 02/25 1600 02/25 0800 02/25 0000 Intake Total 480 75 610 Output Total 200 650 3 Balance 280 -575 607 Intake, IV 10 Intake, Oral 480 75 600 Output, Other 3 Output, Urine 200 650 Patient 66.678 kg Weight Physical Exam General Appearance: Alert, Oriented X3, Cooperative, No Acute Distress Other Physical Findings: Skin: No Rashes, No Breakdown HEENT: PERRLA, EOMI Neck: Supple, No JVD Cardiovascular: Normal S1, Normal S2 Lungs: Decrease air entry B/L with scattered crackle at bases Abdomen: Normal Bowel Sounds, Soft, No Tenderness Extremities: No Edema Vascular: Normal Pulses, Pulses Symmetrical Current Medications: Current Medications Sig/Timi Start time Last Medication Dose Route Stop Time Status Admin Acetaminophen 325 MG Q6P PRN 02/19 1145 AC PO Albuterol Sulfate 3 ML Q4P PRN 02/19 1715 AC INH Albuterol Sulfate 3 ML Q4H PRN 02/19 1330 AC 02/23 INH 0600 Bisacodyl 10 MG DAILY PRN 02/19 1600 AC TX Cholecalciferol 1,000 IU DAILY 04/10 1300 AC 02/25 PO 1138 Dicyclomine HCl 20 MG 4 TIMES/DAY PRN 02/19 1330 AC PO Diltiazem HCl 30 MG BID 02/19 2200 AC 02/25 PO 0925 Furosemide 20 MG DAILY 02/24 1000 AC 02/25 PO 0924 Levothyroxine Sodium 0.125 MG 0600 02/20 0600 AC 02/25 PO 0635 Magnesium Hydroxide 30 ML DAILY PRN 02/19 1615 AC PO Metoprolol Tartrate 50 MG BID 02/23 2200 AC 02/24 PO 2226 Mirabegron 25 MG 2200 02/22 2200 AC 02/24 PO 2227 Multivitamins 1 TAB DAILY 02/19 1558 AC 02/25 Therapeutic PO 0930 Ondansetron HCl 4 MG Q8H PRN 02/19 1600 AC PO Oxycodone/ 1 TAB Q6P PRN 02/21 1515 AC 02/25 Acetaminophen PO 1524 Pantoprazole Sodium 40 MG BID 02/20 2248 AC 02/25 IV 0926 Polyethylene Glycol 17 GM DAILY 02/21 1000 AC 02/25 PO 0930 Potassium Chloride 20 MEQ DAILY 02/19 1311 AC 02/25 PO 0924 Rivaroxaban 15 MG 1700 02/21 1700 AC 02/25 PO 1640 Senna/Docusate Sodium 1 TAB BID 02/19 2200 AC 02/25 PO 0924 Tiotropium [place] 1 PUF DAILY 02/19 1253 AC 02/25 INH 0923 Trazodone HCl 25 MG BID PRN 02/19 1600 AC 02/23 PO 2301 Last 24 Hrs of Lab/Bill Results Last 24 Hrs of Labs/Mics: Laboratory Tests 02/25/17 0717: Anion Gap 5, Estimated GFR > 60, BUN/Creatinine Ratio 17.5, CBC w Diff NO MAN DIFF REQ, RBC 2.63 L, MCV 89.3, MCH 29.4, RDW 17.7 H, MPV 7.8, Gran % 52.7, Lymphocytes % 26.6, Monocytes % 12.1 H, Eosinophils % 7.8 H, Basophils % 0.8, Absolute Granulocytes 4.3, Absolute Lymphocytes 2.1, Absolute Monocytes 1.0 H, Absolute Eosinophils 0.6, Absolute Basophils 0.1, PUBS MCHC 32.9 L Assessment/Plan Assessment: 86 yo female with pmh of A.fib on xarelto, CAD, HFpEF (EF 65%) with pulmonary HTN, 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 displaced femoral neck fracture s/p fall. 1. Rt. displaced femoral neck fracture s/p fall: S/P right hip percutaneous pinning, pain is improving surgical team signed off, she is needs a follow up appointment with surgeon in 1 week. 2. A.fib on xarelto:On Xarelto, overnight had 7 runs of vtach, and respiratory distress, she was given Lasix and now on Bipap. Metoprolol continued at 50mg BID per high lift mule operator yesterday. Need to monitor her heart rate and blood pressure closely. 3. HFpEF with PAH: Will start low dose lasix, will avoid overdiuresis, as that will decrease blood pressure and increase HR. 4. Asthma/COPD: She's is not on home oxygen (only as needed), currently requiring additional oxygen at 3 L/m. Currently on Bipap for desaturation overnight 5. hypothyroidism: c/w home dose levothyroxine 0.125mg daily. 6. 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 She has patent Rt. port-a-cath. Stable. ALP is elevated likely from bone metasis. 7. Transaminitis: most likely from chemotherapy. Ultrasound abdomen was unremarkable. LFT is trending down. 8. Hypokalemia/hyponatremia/ resolved: Will hold Kcl for now 9.Positive urine cx. for E.coli: the case discussed with attending who recommend to reapeat UA, watch off antibiotic for now. 10. Lt. foot pain: X-ray showed no active fracture, she had arthritis which most likely acting up with her acute illness. 11.Anemia: Her hemoglobin this morning is 7.7 and crit 23.5 thus receiving 1 unit of PRBC according to Dr. Fairchild's suggestion. DVT ppx: IV heparin, ALPS DNR/I, but pt will be full code when she's getting surgery. Pain pathway NPO after MN for surgery. Problem List: 1. ATRIAL FIBRILATION 2. CHF (congestive heart failure) 3. Impacted fracture of right hip Pain Ratin Pain Location: legs, all over body Pain Goal: Pain 4 or less Pain Plan: prn Tomorrow's Labs & Rationales: CBC, BEP to f/u on post-transfusion levels, and potassium Consulting Request: Consulting Specialty: Cardiology Consulting Physician: Dr. eNal Reason for Consult: Pre-op evaluation
--- NOTE | 2017-02-25 12:39 | PN- Att Addend ---
Attending Addendum Attending Brief Note Mrs. Saldana appears comfortable when examined. She denies shortness of breath or chest pain. She states her hip pain is improving. She is afebrile with stable vital signs and is saturating well on nasal cannula oxygen. Pulmonary exam is benign as is her cardiovascular exam. Her hematocrit today is 23. Her electrolytes are satisfactory. We should continue her present modalities of therapy. He should wean her oxygen as allowed. I would also transfuse her with packed red cells for her decreased hematocrit.
--- NOTE | 2017-02-25 14:55 | PN- Cardiology ---
Subjective Subjective: Doing about the same. The patient continues to complain of some right hip pain. Otherwise stable. Objective Vital Signs and I&Os Vital Signs Date Time Temp Pulse Resp B/P Pulse O2 O2 Flow FiO2 Ox Delivery Rate 02/25 1137 97 Nasal 3.0L Cannula 02/25 0925 100/42 02/25 0924 79 100/42 02/25 0822 97.8 79 19 112/62 100 Nasal 3.0L Cannula 02/25 0800 95 Nasal 3.0L Cannula 02/25 0000 Nasal 3.0L Cannula 02/24 2329 97.9 82 18 104/50 98 Nasal Cannula 02/24 222 88 124/64 02/24 2226 88 124/64 02/24 2200 96 Nasal 3.0L Cannula 02/24 1606 98.3 68 17 101/46 97 Nasal 3.0L Cannula 02/24 1600 Nasal 3.0L Cannula Intake & Output 02/25 1600 02/25 0800 02/25 0000 02/24 1600 02/24 0800 02/24 0000 Intake Total 480 75 610 480 360 Output Total 200 650 3 425 850 Balance 280 -575 607 480 -65 -850 Intake, IV 10 Intake, Oral 480 75 600 480 360 Number 2 1 Bowel Movements Output, Other 3 Output, Urine 200 650 425 850 Patient 147 lb Weight Current Medications: Current Medications Sig/Timi Start time Last Medication Dose Route Stop Time Status Admin Acetaminophen 325 MG Q6P PRN 02/19 1145 AC PO Albuterol Sulfate 3 ML Q4P PRN 02/19 1715 AC INH Albuterol Sulfate 3 ML Q4H PRN 02/19 1330 AC 02/23 INH 0600 Bisacodyl 10 MG DAILY PRN 02/19 1600 AC HI Cholecalciferol 1,000 IU DAILY 02/19 1300 AC 02/25 PO 1138 Dicyclomine HCl 20 MG 4 TIMES/DAY PRN 02/19 1330 AC PO Diltiazem HCl 30 MG BID 02/19 220 AC 02/25 PO 0925 Furosemide 20 MG DAILY 02/24 1000 AC 02/25 PO 0924 Levothyroxine Sodium 0.125 MG 0600 02/20 0600 AC 02/25 PO 0635 Magnesium Hydroxide 30 ML DAILY PRN 02/19 1615 AC PO Metoprolol Tartrate 50 MG BID 02/23 2200 AC 02/24 PO 2226 Mirabegron 25 MG 2200 04/13 2200 AC 02/24 PO 2227 Multivitamins 1 TAB DAILY 02/19 1558 AC 02/25 Therapeutic PO 0930 Ondansetron HCl 4 MG Q8H PRN 02/19 1600 AC PO Oxycodone/ 1 TAB Q6P PRN 02/21 1515 AC 02/25 Acetaminophen PO 1039 Pantoprazole Sodium 40 MG BID 02/20 2248 AC 02/25 IV 0926 Polyethylene Glycol 17 GM DAILY 02/21 1000 AC 02/25 PO 0930 Potassium Chloride 20 MEQ DAILY 02/19 1311 AC 02/25 PO 0924 Rivaroxaban 15 MG 1700 02/21 1700 AC 02/24 PO 1840 Senna/Docusate Sodium 1 TAB BID 02/19 2200 AC 02/25 PO 0924 Tiotropium [place] 1 PUF DAILY 02/19 1253 AC 02/25 INH 0923 Trazodone HCl 25 MG BID PRN 02/19 1600 AC 02/23 PO 2301 Results Last 48 Hrs of Labs/Mics: Laboratory Tests 02/25/17 0717: Anion Gap 5, Estimated GFR > 60, BUN/Creatinine Ratio 17.5, CBC w Diff NO MAN DIFF REQ, RBC 2.63 L, MCV 89.3, MCH 29.4, RDW 17.7 H, MPV 7.8, Gran % 52.7, Lymphocytes % 26.6, Monocytes % 12.1 H, Eosinophils % 7.8 H, Basophils % 0.8, Absolute Granulocytes 4.3, Absolute Lymphocytes 2.1, Absolute Monocytes 1.0 H, Absolute Eosinophils 0.6, Absolute Basophils 0.1, PUBS MCHC 32.9 L 02/24/17 0815: Anion Gap 8, Estimated GFR > 60, BUN/Creatinine Ratio 16.3, CBC w Diff NO MAN DIFF REQ, RBC 2.70 L, MCV 89.8, MCH 29.3, RDW 18.2 H, MPV 8.1, Gran % 58.0, Lymphocytes % 22.6, Monocytes % 12.8 H, Eosinophils % 6.2 H, Basophils % 0.4, Absolute Granulocytes 4.8, Absolute Lymphocytes 1.9, Absolute Monocytes 1.1 H, Absolute Eosinophils 0.5, Absolute Basophils 0, PUBS MCHC 32.7 L Assessment/Plan Assessment/Plan Assessment: 1. Right femoral neck fracture post fall 2. Atrial fibrillation on anticoagulant therapy 3. HFpEF with pulmonary hypertension 4. History of COPD 5. Hypothyroidism 6. 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 Transaminitis Recommendations: -Continue current medication regimen. Heart rate better controlled today. -Continue to monitor her intakes, outputs, and daily weights. -Otherwise continue as per the medical team. Continue telemetry? Yes
[2017-02-25 16:36] VITALS: BP 102/53
[2017-02-25 23:50] VITALS: BP 104/4; BP 104/40
[2017-02-26 06:14] LABS: ABSOLUTE BASOPHIL COUNT 0 /CUMM (0.0-0.2); ABSOLUTE EOSINOPHIL COUNT 0.6 /CUMM (0.0-0.7); ABSOLUTE GRANULOCYTE CT 4.3 /CUMM (1.4-6.5); ABSOLUTE LYMPH COUNT 1.8 /CUMM (1.2-3.4); BASOPHIL % 0.5 % (0.0-2.0); EOSINOPHIL % 7.5 % (0-5); GRANULOCYTE % 55.9 % (42.2-75.2); HEMATOCRIT 27.1 % (37-47); MEAN CORPUSCULAR HGB 28.9 PG (27.0-31.0); MEAN CORPUSCULAR HGB CONC 32.5 G/DL (33.0-37.0); MEAN CORPUSCULAR VOLUME 88.8 FL (81.0-99.0); MEAN PLATELET VOLUME 7.8 FL (7.4-10.4); PLATELET COUNT 224 /CUMM (130-400); RBC DISTRIBUTION WIDTH 17.6 % (11.5-14.5); RED BLOOD CELL CT 3.05 /CUMM (4.20-5.40); WHITE BLOOD CELL COUNT 7.8 /CUMM (4.8-10.8)
--- NOTE | 2017-02-26 06:56 | PN- Att Addend ---
Attending Addendum Attending Brief Note Attending note. Overall patient is fairly stable capris of mild abdominal discomfort. Also has mild discomfort in the right hip. Vital Signs Date Time Temp Pulse Resp B/P Pulse O2 O2 Flow FiO2 Ox Delivery Rate 02/26 0000 99 Nasal 3.0L Cannula 02/25 2350 97.3 86 16 104/40 99 Nasal 3.0L Cannula 02/25 2203 90 98/48 02/25 2203 90 98/48 02/25 2125 96 Nasal 3.0L Cannula 02/25 1636 98.7 85 20 102/53 100 Nasal 3.0L Cannula 02/25 1600 Nasal 3.0L Cannula 02/25 1137 97 Nasal 3.0L Cannula 02/25 0925 100/42 02/25 0924 79 100/42 02/25 0822 97.8 79 19 112/62 100 Nasal 3.0L Cannula 02/25 0800 95 Nasal 3.0L Cannula Intake & Output 02/26 0800 02/26 0000 02/25 1600 Intake Total 25 980 480 Output Total 150 200 Balance -125 980 280 Intake, Blood 350 Product Intake, IV 30 Intake, Oral 25 600 480 Number 0 Bowel Movements Output, Urine 150 200 On examination patient is awake alert but slightly confused. On oxygen 3 L Her neck is supple conjunctivae is pale sclera is anicteric S1-S2 is normal Lungs shows diminished breath sounds both bases with fine crackles. Abdomen is soft mildly distended mild tenderness in the lower part of the abdomen no masses felt. Bowel sounds are present. Extremity shows bipedal edema 1+ the tenderness in the right hip wound is clean Laboratory Tests 02/26 02/25 0525 0717 Chemistry Sodium (137 - 145 mmol/L) 136 L 134 L Potassium (3.5 - 5.1 mmol/L) 3.9 4.5 Chloride (98 - 107 mmol/L) 95 L 96 L Carbon Dioxide (22 - 30 mmol/L) 32 H 33 H Anion Gap (5 - 16) 10 5 BUN (7 - 17 mg/dL) 15 14 Creatinine (0.5 - 1.0 mg/dL) 0.8 0.8 Estimated GFR (>60 ml/min) > 60 > 60 BUN/Creatinine Ratio (7 - 25 %) 18.8 17.5 Hematology CBC w Diff NO MAN DIFF REQ NO MAN DIFF REQ WBC (4.8 - 10.8 /CUMM) 7.8 8.1 RBC (4.20 - 5.40 /CUMM) 3.05 L 2.63 L Hgb (12.0 - 16.0 G/DL) 8.8 L 7.7 L Hct (37 - 47 %) 27.1 L 23.5 L MCV (81.0 - 99.0 FL) 88.8 89.3 MCH (27.0 - 31.0 PG) 28.9 29.4 RDW (11.5 - 14.5 %) 17.6 H 17.7 H Plt Count (130 - 400 /CUMM) 224 231 MPV (7.4 - 10.4 FL) 7.8 7.8 Gran % (42.2 - 75.2 %) 55.9 52.7 Lymphocytes % (20.5 - 51.1 %) 22.9 26.6 Monocytes % (1.7 - 9.3 %) 13.2 H 12.1 H Eosinophils % (0 - 5 %) 7.5 H 7.8 H Basophils % (0.0 - 2.0 %) 0.5 0.8 Absolute Granulocytes (1.4 - 6.5 /CUMM) 4.3 4.3 Absolute Lymphocytes (1.2 - 3.4 /CUMM) 1.8 2.1 Absolute Monocytes (0.10 - 0.60 /CUMM) 1.0 H 1.0 H Absolute Eosinophils (0.0 - 0.7 /CUMM) 0.6 0.6 Absolute Basophils (0.0 - 0.2 /CUMM) 0 0.1 PUBS MCHC (33.0 - 37.0 G/DL) 32.5 L 32.9 L 86 yo female with pmh of A.fib on xarelto, CAD, HFpEF (EF 65%) with pulmonary HTN, 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 displaced femoral neck fracture s/p fall. 1. Rt. displaced femoral neck fracture s/p fall: S/P right hip percutaneous pinning, pain is improving surgical team signed off, she is needs a follow up appointment with surgeon in 1 week. 2. A.fib on xarelto:On Xarelto, overnight had 7 runs of vtach, and respiratory distress, she was given Lasix and now on Bipap. Metoprolol continued at 50mg BID per taxation economist yesterday. Need to monitor her heart rate and blood pressure closely. 3. HFpEF with PAH: Will start low dose lasix, will avoid overdiuresis, as that will decrease blood pressure and increase HR. 4. Asthma/COPD: She's is not on home oxygen (only as needed), currently requiring additional oxygen at 3 L/m. Currently on Bipap for desaturation overnight 5. hypothyroidism: c/w home dose levothyroxine 0.125mg daily. 6. 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 She has patent Rt. port-a-cath. Stable. ALP is elevated likely from bone metasis. 7. Transaminitis: most likely from chemotherapy. Ultrasound abdomen was unremarkable. LFT is trending down. 8. Hypokalemia/hyponatremia/ resolved: Will hold Kcl for now 9.Positive urine cx. for E.coli: the case discussed with attending who recommend to reapeat UA, watch off antibiotic for now. 10. Lt. foot pain: X-ray showed no active fracture, she had arthritis which most likely acting up with her acute illness. 11.Anemia: Her hemoglobin this morning is 8.8 and 27 after receiving 1 unit of packed red blood cells. [facility]
--- NOTE | 2017-02-26 07:48 | PN- Housestaff ---
Subjective Follow-up For: rt. hip fracture POD 1 s/p right hip percutaneous pinning A.fib SOB Subjective: Patient seen and examined, she is awake, alert , oriented. She is feeling improvement on her respiratory status. she compained of burning sensation over right hip and pain on the right knee and back, also she feels burning pain on the back over the buttock region. She denies any chest pain, cough, phlegm. She feels abdominal distention but she pass gases and had a bowel movement yesterday. Vitals stable. Review of Systems Constitutional: Reports: no symptoms. Cardiovascular: Reports: no symptoms. Respiratory: Reports: short of breath. Gastrointestinal: Reports: distention. Genitourinary: Reports: no symptoms. Musculoskeletal: Reports: back pain, joint pain. Skin: Reports: no symptoms. Objective Last 24 Hrs of Vital Signs/I&O Vital Signs Date Time Temp Pulse Resp B/P Pulse O2 O2 Flow FiO2 Ox Delivery Rate 02/26 0849 97.9 86 16 118/68 98 Nasal 3.0L Cannula 02/26 0830 90 104/40 02/26 0830 90 104/40 02/26 0000 99 Nasal 3.0L Cannula 02/25 2350 97.3 86 16 104/40 99 Nasal 3.0L Cannula 02/25 2203 90 98/48 02/25 2203 90 98/48 02/25 2125 96 Nasal 3.0L Cannula 02/25 1636 98.7 85 20 102/53 100 Nasal 3.0L Cannula 02/25 1600 Nasal 3.0L Cannula 02/25 1137 97 Nasal 3.0L Cannula 02/25 0925 100/42 02/25 0924 79 100/42 Intake & Output 02/26 1600 02/26 0800 02/26 0000 Intake Total 25 980 Output Total 150 Balance -125 980 Intake, Blood 350 Product Intake, IV 30 Intake, Oral 25 600 Number 0 Bowel Movements Output, Urine 150 Physical Exam General Appearance: Alert, Cooperative, No Acute Distress Skin: No Rashes, No Breakdown, No Significant Lesion Cardiovascular: Normal S1, Normal S2 Lungs: Clear to Auscultation, Diminished air movement Abdomen: Normal Bowel Sounds, distended Extremities: No Edema, Normal Pulses Current Medications: Current Medications Sig/Timi Start time Last Medication Dose Route Stop Time Status Admin Acetaminophen 325 MG Q6P PRN 02/19 1145 AC PO Albuterol Sulfate 3 ML Q4P PRN 02/19 1715 AC INH Albuterol Sulfate 3 ML Q4H PRN 02/19 1330 AC 02/23 INH 0600 Bisacodyl 10 MG DAILY PRN 02/19 1600 AC AR Cholecalciferol 1,000 IU DAILY 02/19 1300 AC 02/25 PO 1138 Dicyclomine HCl 20 MG 4 TIMES/DAY PRN 02/19 1330 AC PO Diltiazem HCl 30 MG BID 02/19 2200 AC 02/26 PO 0830 Furosemide 20 MG DAILY 02/24 1000 AC 02/26 PO 0830 Levothyroxine Sodium 0.125 MG 0600 02/20 0600 AC 02/25 PO 0635 Magnesium Hydroxide 30 ML DAILY PRN 02/19 1615 AC PO Metoprolol Tartrate 50 MG BID 02/23 2200 AC 02/26 PO 0830 Mirabegron 25 MG 2200 02/22 2200 AC 02/25 PO 2202 Multivitamins 1 TAB DAILY 02/19 1558 AC 02/25 Therapeutic PO 0930 Ondansetron HCl 4 MG Q8H PRN 02/19 1600 AC PO Oxycodone/ 1 TAB Q6P PRN 02/21 1515 AC 02/26 Acetaminophen PO 0827 Pantoprazole Sodium 40 MG BID 02/20 2248 AC 02/25 IV 2203 Polyethylene Glycol 17 GM DAILY 02/21 1000 AC 02/26 PO 0830 Potassium Chloride 20 MEQ DAILY 02/19 1311 AC 02/25 PO 0924 Rivaroxaban 15 MG 1700 02/21 1700 AC 02/25 PO 1640 Senna/Docusate Sodium 1 TAB BID 02/19 2200 AC 02/26 PO 0831 Tiotropium [place] 1 PUF DAILY 02/19 1253 AC 02/25 INH 0923 Trazodone HCl 25 MG BID PRN 02/19 1600 AC 02/23 PO 2301 Last 24 Hrs of Lab/Bill Results Last 24 Hrs of Labs/Mics: Laboratory Tests 02/26/17 0525: Anion Gap 10, Estimated GFR > 60, BUN/Creatinine Ratio 18.8, CBC w Diff NO MAN DIFF REQ, RBC 3.05 L, MCV 88.8, MCH 28.9, RDW 17.6 H, MPV 7.8, Gran % 55.9, Lymphocytes % 22.9, Monocytes % 13.2 H, Eosinophils % 7.5 H, Basophils % 0.5, Absolute Granulocytes 4.3, Absolute Lymphocytes 1.8, Absolute Monocytes 1.0 H, Absolute Eosinophils 0.6, Absolute Basophils 0, PUBS MCHC 32.5 L Assessment/Plan Assessment: 86 yo female with pmh of A.fib on xarelto, CAD, HFpEF (EF 65%) with pulmonary HTN, 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 displaced femoral neck fracture s/p fall. 1. Rt. displaced femoral neck fracture s/p fall: S/P right hip percutaneous pinning, pain is improving surgical team signed off, she is needs a follow up appointment with surgeon in 1 week. 2. A.fib on xarelto:On Xarelto, and respiratory distress, she was given Lasix and now on Bipap. 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 Need to monitor her heart rate and blood pressure closely. 3. HFpEF with PAH: Will start low dose lasix, will avoid overdiuresis, as that will decrease blood pressure and increase HR. 4. Asthma/COPD: She's is not on home oxygen (only as needed), currently requiring additional oxygen at 3 L/m. Currently on Bipap for desaturation overnight 5. hypothyroidism: c/w home dose levothyroxine 0.125mg daily. 6. 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 She has patent Rt. port-a-cath. Stable. ALP is elevated likely from bone metasis. 7. Transaminitis: most likely from chemotherapy. Ultrasound abdomen was unremarkable. LFT is trending down. 8. Hypokalemia/hyponatremia/ resolved: Will hold Kcl for now 9.Positive urine cx. for E.coli: the case discussed with attending who recommend to reapeat UA, watch off antibiotic for now. 10. Lt. foot pain: X-ray showed no active fracture, she had arthritis which most likely acting up with her acute illness. 11.Anemia: Her hemoglobin this morning is 7.7 and crit 23.5 thus received 1 unit of PRBC yesterday. Her H&H today:8.8/27. -Will start discharge planning to STR DVT ppx: IV heparin, ALPS DNR/I, but pt will be full code when she's getting surgery. Pain pathway Problem List: 1. ATRIAL FIBRILATION 2. ARTHRITIS 3. Diastolic heart failure 4. Shortness of breath 5. Impacted fracture of right hip Pain Ratin Pain Location: back, right hip, right knee Pain Goal: Remain pain free Pain Plan: tylenol, percocet Tomorrow's Labs & Rationales: cbc, bep DVT/Prophylaxis: pharmacological Consulting Request: Consulting Specialty: Cardiology Consulting Physician: Dr. Neal Reason for Consult: Pre-op evaluation
[2017-02-26 08:49] VITALS: BP 118/68
--- NOTE | 2017-02-26 11:25 | Discharge Summary ---
See Addendum Visit Information Visit Dates Admission Date: 02/19/17 Discharge Date: 02/28/2017 Hospital Course Course Attending Physician: KEYA DIEZ MD Primary Care Physician: AVIS MAYBERRY,NATI [place] Consulting Request: Consulting Specialty: Cardiology Consulting Physician: Dr. 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 scapula/ acetabulum) s/p chemotherapy, CKD stage 3A, BIBA from ECF with a chief complaint of Rt. hip pain s/p fall resulting in mildly displaced right hip fracture. She does have leukocytosis Is Likely Reactive and Also Noted She Has Abnormal LFTs That Is of Unclear Significance. Based on her prior blood work it seems as though liver function is gradually worsening. Patient seen by orthopedic service , she was also seen by cardiology service and medically cleared for ight hip percutaneous pinning as she has a normal EF with no evidence of decompensated CHF. Her Lasix was held initially for borderline hypotension and dehydration. She had the procedure (Right hip percutaneous pinning) at 02/20/17, after procedure physical therapy initiated with pain managment, she then developed hypoxic respiratory failure 2/2 volume overload, her lasix was resumed and B- durga dose increase per cardiologit, her hospitalization was also complicated with anemia, she recived 1 unit of blood. On discharge day her respiratory status was improved, her O2 sat: on NC. Her problems includes: 1. Rt. displaced femoral neck fracture s/p fall: S/P right hip percutaneous pinning, she is needs a follow up appointment with surgeon in 1 week. 2. A.fib on xarelto:On Xarelto, and respiratory distress, Metoprolol 50mg BID, cardizem 30mg po BID. 3. HFpEF with PAH: on 20mg po Lasix 4. Asthma/COPD: She's is not on home oxygen (only as needed), currently requiring additional oxygen at 3 L/m. Currently on Bipap for desaturation overnight 5.cute hypoxic respiratory failure/resolved: initially she was on continuous Bipap, she received also Lasix wich helped with volume overload, Bipap then switched to 3L NC 6. hypothyroidism: c/w home dose levothyroxine 0.125mg daily. 7. 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 She has patent Rt. port-a-cath. Stable. 8. Transaminitis: most likely from chemotherapy. Ultrasound abdomen was unremarkable. LFT is trending down. 9. Hypokalemia/hyponatremia/ resolved: Will hold Kcl for now 10.Positive urine cx. for E.coli: the case discussed with attending who recommend to reapeat UA, watch off antibiotic for now. 11. Lt and Rt.. foot pain: X-ray showed no active fracture, she had arthritis which most likely acting up with her acute illness. 12.Acute blood loss nemia: She received 1 unit of blood at 02/25/2017, Her hemoglobin this morning is 7.7 and crit 23.5 thus received 1 unit of PRBC yesterday. Her H&H today:8.9/26.8 13. 13.Stage II decubitus ulcer: LEFT BUTTOCKS STAGE 2 PRESSURE INJURY 5X5 CM CLEAN PINK DRY FILL NON DRNG - RIGHT BUTTOCKS 4.3 X 5 CM STAGE 2 PRESSURE INJURY She needs to work with PT. Complications: Non Allergies: Coded Allergies: Penicillins (RASH 12/16/16) acetaminophen (BURNING FEELING IN STOMACH 12/16/16) animal dander (PER MAR 01/14/17) garlic (UNKNOWN, LISTED ON JAN W NO REACTION NOTED 02/19/17) latex (SORES 12/16/16) mold (UNKNOWN 12/16/16) onion (UNKNOWN - PER MAR NO REACTION NOTED 02/19/17) Sulfa (Sulfonamide Antibiotics) (GI 12/16/16) aspirin (MILD GI 12/16/16) diazepam (GI 12/16/16) oxycodone (GI, MIGRAINE 12/16/16) propoxyphene (GI 12/16/16) Uncoded Allergies: COLOGNE (PER PT UPSETS HER WITH THE SMELL 10/17/16) HAIR SPRAY (PER PT UPSETS HER WITH THE SMELL 10/17/16) SMOKE (PER PT CANT STAND SMELLS IT UPSETS HER 10/17/16) TOBACCO (PER 01/14/17) Disposition Summary Disposition Principal Diagnosis: 1. Right femoral neck fracture post fall 2. Atrial fibrillation on anticoagulant therapy 3. HFpEF with pulmonary hypertension 4. History of COPD 5. Hypothyroidism 6. 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 Transaminitis Additional Diagnosis: As above Discharge Disposition: SNF Discharge Instructions General Discharge Information Code Status: Do Not Resucitate/Intubat Patient's Diet: Heart healthy diet Patient's Activity: Limited Follow-Up Instructions/Appts: -Follow up with Orthopedic service in 1 week after discharge -Follow up with your half backer in 1 week after discharge Medications at Discharge Discharge Medications: Stop taking the following medications: Lidocaine (Lidocaine) 5 % ADH..PATCH On the skin DAILY as needed for PAIN Hydromorphone HCl (Hydromorphone HCl) 2 MG TABLET ORAL Q12H as needed for PAIN Guaifenesin/Dextromethorphan (Tussin Dm Cough Syrup) 100 MG-10 MG/5 ML SYRUP ORAL Q4H as needed for COUGH Metoprolol Tartrate (Metoprolol Tartrate) 25 MG TABLET ORAL TWICE DAILY Days = 30 Continue taking these medications: Pantoprazole Sodium (Protonix) 40 MG TABLET.DR 1 Tablet ORAL TWICE DAILY Comments: Last Taken: 01/30/17 Time: 6AM PRILOSEC GIVEN SUBSTITUTION Multivitamin (Multiple Vitamins) 1 EACH TABLET 1 Tablet ORAL DAILY Comments: NOT GIVEN IN THE HOSPITAL Cyanocobalamin (Vitamin B-12) (Cyanocobalamin Injection) 1,000 MCG/1 ML VIAL 1 Milliliters INTRAMUSC ONCE A MONTH Qty = 1 Instructions: Reason to Stop at ADM: monthly Comments: NOT GIVEN IN THE HOSPITAL Mirabegron (Myrbetriq) 25 MG TAB.ER.24H 1 Tablet ORAL DAILY Qty = 30 Comments: NOT GIVEN IN THE HOSPITAL Cholecalciferol (Vitamin D3) (Vitamin D3) 5,000 UNIT TABLET 1 Tablet ORAL DAILY Comments: NOT GIVEN IN THE HOSPITAL Rivaroxaban (Xarelto) 15 MG TABLET 1 Tablet ORAL 5 PM Qty = 90 Instructions: Reason to Stop at ADM: Pre-op Comments: Last Taken: 01/29/17 Time: 9PM Tiotropium [place] (Spiriva) 18 MCG CAP.W.DEV 1 Capsule Inhale through mouth DAILY Comments: Last Taken: 01/30/17 Time: 9AM Tramadol HCl (Tramadol HCl) 50 MG TABLET 1 Tablet ORAL Q4H as needed for PAIN Comments: NOT GIVEN WHILE IN HOSPITAL Estradiol (Climara) 0.0375 MG/24 HOUR PATCH.TDWK 1 PATCH On the skin EVERY SUNDAY Instructions: Reason to Stop at ADM: not needed in hospital Comments: NOT GIVEN AT HOSPITAL Potassium Chloride (Klor-Con M20) 20 MEQ TAB.ER.PRT 1 Tablet ORAL DAILY Days = 30 Comments: Last Taken: 01/29/17 Time: 9AM Prochlorperazine Maleate (Prochlorperazine Maleate) 10 MG TABLET 1 Tablet ORAL EVERY SIX HOURS as needed for N/V Instructions: Reason to Stop at ADM: not needed Comments: NOT GIVEN WHILE IN HOSPITAL Levothyroxine Sodium (Synthroid) 125 MCG TABLET 1 Tablet ORAL TAKE AT BEDTIME Diltiazem HCl (Cardizem) 30 MG TABLET 30 Milligram ORAL TWICE DAILY Days = 30 Comments: Last Taken: 01/30/17 Time: 9AM Dicyclomine Hydrochloride (Bentyl) 10 MG CAPSULE 20 Milligram ORAL 4 TIMES A DAY Days = 30 Comments: Last Taken: 01/30/17 Time: 9AM Simethicone (Simethicone) 80 MG TAB.CHEW 1 Tablet ORAL EVERY 4 HOURS NEEDED as needed for GAS/INDIGESTION Instructions: Reason to Stop at ADM: not needed Trazodone HCl (Trazodone HCl) 50 MG TABLET 25 Milligram ORAL TWICE DAILY as needed for anxiety/agitation Librax (Librax Capsule) 5 MG-2.5 MG CAPSULE 1 Capsule ORAL DAILY as needed for ABD PAIN Instructions: Reason to Stop at ADM: not needed Ondansetron (Zofran Odt) 4 MG TAB.RAPDIS 1 Tablet SUBLINGUAL Q8H as needed for NAUSEA Magnesium Hydroxide (Milk Of Magnesia) 400 MG/5 ML ORAL.SUSP 30 Milliliters ORAL DAILY as needed for CONSTIPATION Na Phos,M-B/Na Phos,Di-Ba (Fleet Enema) 19 GRAM-7 GRAM/118 ML ENEMA 1 Enema RECTAL DAILY as needed for CONSTIPATION Instructions: Reason to Stop at ADM: Not needed Bisacodyl (Bisacodyl) 10 MG SUPP.RECT 1 Suppository RECTAL DAILY as needed for CONSTIPATION Dronabinol (Marinol) 2.5 MG CAPSULE 1 Capsule ORAL TWICE DAILY Instructions: Reason to Stop at ADM: not needed, will give IV fluid Start taking the following new medications: Metoprolol Tartrate (Metoprolol Tartrate) 50 MG TABLET 50 Milligram ORAL TWICE DAILY Qty = 30 No Refills Furosemide (Lasix) 20 MG TABLET 1 Tablet ORAL DAILY Qty = 30 No Refills Copies To: AVIS MAYBERRY,NATI [place]; CHARY MAYBERRY,[facility]
--- NOTE | 2017-02-26 14:48 | Patient Discharge Instructions ---
Discharge Instructions General Discharge Information You were seen/treated for: rt. hip fracture POD 1 s/p right hip percutaneous pinning A.fib SOB Special Instructions: -Follow up with your primary care physician in 1 week after discharge. -Follow up with orthopedic surgion in 1 week after discharge -Follow up wit aleyda package line operator in one week after discharge -Take your medications as prescribed Diet Recommended Diet: Heart Healthy Acute Coronary Syndrome Inclusion Criteria At DC or during hospital stay patient has or had the following: ACS DIAGNOSIS No Discharge Core Measures Meds if any: Prescribed or Continued at Discharge Meds if any: NOT Prescribed or Continued at Discharge Congestive Heart Failure Inclusion Criteria At DC or during hospital stay patient has or had the following: CHF DIAGNOSIS No Discharge Core Measures Meds if any: Prescribed or Continued at Discharge Meds if any: NOT Prescribed or Continued at Discharge Cerebrovascular accident Inclusion Criteria At DC or during hospital stay patient has or had the following: CVA/TIA Diagnosis No Discharge Core Measures Meds if any: Prescribed or Continued at Discharge Meds if any: NOT Prescribed or Continued at Discharge Venous thromboembolism Inclusion Criteria VTE Diagnosis No VTE Type NONE VTE Confirmed by (Test) NONE Discharge Core Measures - Per Current guidelines, there needs to be overlap - treatment for the first 5 days of Warfarin therapy. - If discharged on Warfarin prior to 5 days of - overlap therapy, the patient will need to be - assessed for post discharge needs including - *Post discharge parental anticoagulation - *Warfarin and/or parental anticoagulation education - *Follow up date to check INR post discharge At least 5 days overlap therapy as Inpatient No Meds if any: Prescribed or Continued at Discharge Note: Overlap Therapy is Warfarin and Anticoagulant Meds if any: NOT Prescribed or Continued at Discharge
--- NOTE | 2017-02-26 15:53 | PN- Cardiology ---
Subjective Subjective: * Shayna Madrid continues to have some discomfort and is worn out. She denies any chest discomfort or shortness of breath. * atrial fibrillation with controlled heart rate. Objective Vital Signs and I&Os Vital Signs Date Time Temp Pulse Resp B/P Pulse O2 O2 Flow FiO2 Ox Delivery Rate 02/26 0849 97.9 86 16 118/68 98 Nasal 3.0L Cannula 02/26 0830 90 104/40 02/26 0830 90 104/40 02/26 0000 99 Nasal 3.0L Cannula 02/25 2350 97.3 86 16 104/40 99 Nasal 3.0L Cannula 02/25 2203 90 98/48 02/25 2203 90 98/48 02/25 2125 96 Nasal 3.0L Cannula 02/25 1636 98.7 85 20 102/53 100 Nasal 3.0L Cannula 02/25 1600 Nasal 3.0L Cannula Intake & Output 02/26 1600 02/26 0800 02/26 0000 02/25 1600 02/25 0800 02/25 0000 Intake Total 25 980 480 75 610 Output Total 300 150 200 650 3 Balance -300 -125 980 280 -575 607 Intake, Blood 350 Product Intake, IV 30 10 Intake, Oral 25 600 480 75 600 Number 1 0 Bowel Movements Output, Other 3 Output, Urine 300 150 200 650 Patient 147 lb Weight Physical Exam: General: WD/ WN female in NAD; alert and oriented x 3 Neck: no JVD, no carotid bruit Heart: irregularly irregular, no murmur Lungs: decreased air movement at bases without crackles Extremties: no edema Assessment/Plan Assessment/Plan * Patient has a much better controlled heart rate today. Continue Metoprolol to 50mg BID and her current dose of Cardizem. * Continue Lasix 20mg PO daily. Do not overdiurese as this will only lead to hypotension and tachycardia. Follow O2 sats and symptoms. * Continue Xarelto for stroke and DVT prophylaxis while following her H/H. Her tachycardia is also likely contributed to by anemia and pain. Continue telemetry? Yes
[2017-02-26 15:59] VITALS: BP 100/54
[2017-02-26 20:00] VITALS: BP 98/54
[2017-02-27 00:06] VITALS: BP 112/56
[2017-02-27 04:00] VITALS: BP 110/52
[2017-02-27] MEDS ORDERED: LASIX20 M1 PO (07:35)
--- NOTE | 2017-02-27 07:44 | PN- Housestaff ---
Subjective Follow-up For: rt. 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 She report that she couldn't sleep well overnight 2/2 pain. Vitals stable. Review of Systems Constitutional: Reports: no symptoms. Cardiovascular: Reports: no symptoms. Respiratory: Reports: cough, short of breath. Gastrointestinal: Reports: no symptoms. Genitourinary: Reports: no symptoms. Musculoskeletal: Reports: back pain, joint pain. Skin: Reports: no symptoms. Neurological/Psychological: Reports: no symptoms. Objective Last 24 Hrs of Vital Signs/I&O Vital Signs Date Time Temp Pulse Resp B/P Pulse O2 O2 Flow FiO2 Ox Delivery Rate 02/27 0400 97.6 103 18 110/52 97 Nasal Cannula 02/27 0006 97.6 88 18 112/56 96 Nasal 3.0L Cannula 02/27 0000 Nasal 3.0L Cannula 02/26 2142 84 100/52 02/26 2000 97.3 87 24 98/54 96 Nasal 3.0L Cannula 02/26 1600 Nasal 3.0L Cannula 02/26 1559 98.3 87 18 100/54 100 Nasal 3.0L Cannula 02/26 0849 97.9 86 16 118/68 98 Nasal 3.0L Cannula 02/26 0830 90 104/40 02/26 0830 90 104/40 02/26 0800 Nasal 3.0L Cannula Intake & Output 02/27 0800 02/27 0000 02/26 1600 Intake Total 200 100 Output Total 450 450 300 Balance -250 -350 -300 Intake, IV 0 0 Intake, Oral 200 100 Number 0 1 2 Bowel Movements Output, Urine 450 450 300 Physical Exam General Appearance: Alert, Cooperative, Mild Distress Skin: No Rashes, No Breakdown HEENT: PERRLA, EOMI Cardiovascular: Normal S1, Normal S2, No Murmurs Lungs: Clear to Auscultation, Normal Air Movement Abdomen: Normal Bowel Sounds, Soft, Tender over the left lower quadrant Extremities: No Edema, Normal Pulses Current Medications: Current Medications Sig/Timi Start time Last Medication Dose Route Stop Time Status Admin Acetaminophen 1,000 MG ONCE ONE 02/26 1030 DC 02/26 N/A 1 UNIT IV 02/26 1044 1145 Acetaminophen 325 MG Q6P PRN 02/19 1145 AC PO Albuterol Sulfate 3 ML Q4P PRN 02/19 1715 AC INH Albuterol Sulfate 3 ML Q4H PRN 02/19 1330 AC 02/23 INH 0600 Bisacodyl 10 MG DAILY PRN 02/19 1600 AC VA Cholecalciferol 1,000 IU DAILY 02/19 1300 AC 02/25 PO 1138 Dicyclomine HCl 20 MG 4 TIMES/DAY PRN 02/19 1330 AC PO Diltiazem HCl 30 MG BID 02/19 2200 AC 02/26 PO 2142 Furosemide 20 MG DAILY 02/24 1000 AC 02/26 PO 0830 Levothyroxine Sodium 0.125 MG 0600 02/20 0600 AC 02/25 PO 0635 Magnesium Hydroxide 30 ML DAILY PRN 02/19 1615 AC PO Metoprolol Tartrate 50 MG BID 02/23 2200 AC 02/26 PO 0830 Mirabegron 25 MG 2200 02/22 2200 AC 02/26 PO 2142 Multivitamins 1 TAB DAILY 02/19 1558 AC 02/25 Therapeutic PO 0930 Ondansetron HCl 4 MG Q8H PRN 02/19 1600 AC PO Oxycodone/ 1 TAB Q6P PRN 02/21 1515 AC 02/26 Acetaminophen PO 2141 Pantoprazole Sodium 40 MG BID 02/20 2248 AC 02/26 IV 2142 Polyethylene Glycol 17 GM DAILY 02/21 1000 AC 02/26 PO 0830 Potassium Chloride 20 MEQ DAILY 02/19 1311 AC 02/25 PO 0924 Rivaroxaban 15 MG 1700 02/21 1700 AC 02/26 PO 1714 Senna/Docusate Sodium 1 TAB BID 02/19 2200 AC 02/26 PO 0831 Tiotropium [place] 1 PUF DAILY 02/19 1253 AC 02/26 INH 1715 Trazodone HCl 25 MG BID PRN 02/19 1600 AC 02/23 PO 2301 Last 24 Hrs of Lab/Bill Results Last 24 Hrs of Labs/Mics: Laboratory Tests 02/27/17 0610: Sodium Pending, Potassium Pending, Chloride Pending, Carbon Dioxide Pending, Anion Gap Pending, BUN Pending, Creatinine Pending, BUN/Creatinine Ratio Pending , CBC w Diff Pending, WBC Pending, RBC Pending, Hgb Pending, Hct Pending, MCV Pending, MCH Pending, RDW Pending, Plt Count Pending, MPV Pending, PUBS MCHC Pending Assessment/Plan Assessment: 86 yo female with pmh of A.fib on xarelto, CAD, HFpEF (EF 65%) with pulmonary HTN, 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 displaced femoral neck fracture s/p fall. 1. Rt. displaced femoral neck fracture s/p fall: S/P right hip percutaneous pinning, pain is improving surgical team signed off, she is needs a follow up appointment with surgeon in 1 week. 2. 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 Need to monitor her heart rate and blood pressure closely. 3. HFpEF with PAH: On low dose lasix, will avoid overdiuresis, as that will decrease blood pressure and increase HR. 4. Asthma/COPD: She's is not on home oxygen (only as needed), currently requiring additional oxygen at 3 L/m. Currently on Bipap for desaturation overnight 5. hypothyroidism: c/w home dose levothyroxine 0.125mg daily. 6. 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 She has patent Rt. port-a-cath. Stable. ALP is elevated likely from bone metasis. 7. Transaminitis: most likely from chemotherapy. Ultrasound abdomen was unremarkable. LFT is trending down. 8. Hypokalemia/hyponatremia/ resolved: Will hold Kcl for now 9.Positive urine cx. for E.coli: the case discussed with attending who recommend to watch off antibiotic for now. 10. Lt. and Rt. foot pain: X-rays showed no active fracture, she had arthritis which most likely acting up with her acute illness. 11.Anemia: Her hemoglobin this morning is 7.7 and crit 23.5 thus received 1 unit of PRBC yesterday. Her H&H today:8.8/27.1 -Will start discharge planning to STR 12.Left Hip pain: Will order xray to r/o fracture. She needs to work with PT. DVT ppx: IV heparin, ALPS DNR/I, but pt will be full code when she's getting surgery. Pain pathway Problem List: 1. ATRIAL FIBRILATION 2. ARTHRITIS 3. Impacted fracture of right hip 4. Congestive heart failure Pain Ratin Pain Location: left hip Pain Goal: Remain pain free Pain Plan: Percocet, Tylenol Tomorrow's Labs & Rationales: - DVT/Prophylaxis: pharmacological Consulting Request: Consulting Specialty: Cardiology Consulting Physician: Dr. Neal Reason for Consult: Pre-op evaluation
[2017-02-27 07:51] LABS: ABSOLUTE BASOPHIL COUNT 0 /CUMM (0.0-0.2); ABSOLUTE EOSINOPHIL COUNT 0.5 /CUMM (0.0-0.7); ABSOLUTE GRANULOCYTE CT 5.4 /CUMM (1.4-6.5); ABSOLUTE LYMPH COUNT 1.4 /CUMM (1.2-3.4); ABSOLUTE MONOCYTE COUNT 1.1 /CUMM (0.10-0.60); BASOPHIL % 0.6 % (0.0-2.0); EOSINOPHIL % 5.5 % (0-5); GRANULOCYTE % 63.7 % (42.2-75.2); HEMATOCRIT 26.8 % (37-47); MEAN CORPUSCULAR HGB 29.3 PG (27.0-31.0); MEAN CORPUSCULAR HGB CONC 33.2 G/DL (33.0-37.0); MEAN CORPUSCULAR VOLUME 88.3 FL (81.0-99.0); MEAN PLATELET VOLUME 7.7 FL (7.4-10.4); PLATELET COUNT 247 /CUMM (130-400); RBC DISTRIBUTION WIDTH 17.3 % (11.5-14.5); RED BLOOD CELL CT 3.03 /CUMM (4.20-5.40); WHITE BLOOD CELL COUNT 8.5 /CUMM (4.8-10.8)
[2017-02-27 08:00] VITALS: BP 100/58
--- NOTE | 2017-02-27 09:30 | PN- Att Addend ---
Attending Addendum Attending Brief Note Patient complaints of left upper hip pain. She is currently on 3 L of oxygen saturating 99%. Skin: Grossly normal HEENT: PEERLA Neck: Supple, No JVD Cardiovascular: Regular Rate, Normal S1, Normal S2, No Murmurs Lungs: Decreased air entry Abdomen: Soft non tender abdomen, normal bowel sounds Neurological: Normal Speech, Strength at 5/5 X4 Ext, Cranial Nerves 3-12 NL, Reflexes 2+ Extremities: Left hip tenderness Vascular: Normal Pulses Assessment Patient now complains of left hip pain. She is also requiring high flow oxygen. Her hemoglobin has been stable and labs within normal limits. We will get x-ray of her left hip and also ambulate patient as tolerated in anticipation for discharge. Plan X-ray left hip Taper oxygen for saturation above 92% continue low-dose Lasix Continue current pain meds Continue xarelto Continue other home medications Ambulate patient and out of bed to chair Current Medications Sig/Timi Start time Last Medication Dose Route Stop Time Status Admin Acetaminophen 1,000 MG ONCE ONE 02/26 1030 DC 02/26 N/A 1 UNIT IV 02/26 1044 1145 Acetaminophen 325 MG Q6P PRN 02/19 1145 AC PO Albuterol Sulfate 3 ML Q4P PRN 02/19 1715 AC INH Albuterol Sulfate 3 ML Q4H PRN 02/19 1330 AC 02/23 INH 0600 Bisacodyl 10 MG DAILY PRN 02/19 1600 AC DC Cholecalciferol 1,000 IU DAILY 02/19 1300 AC 02/25 PO 1138 Dicyclomine HCl 20 MG 4 TIMES/DAY PRN 02/19 1330 AC PO Diltiazem HCl 30 MG BID 02/19 2200 AC 02/26 PO 2142 Furosemide 20 MG DAILY 02/24 1000 AC 02/26 PO 0830 Heparin Sodium 500 UNIT ONCE ONE 02/27 0815 DC 02/27 (Porcine) IV 02/27 0816 0848 Heparin Sodium 100 UNIT ONCE ONE 02/27 0800 CAN (Porcine) IV 02/27 0801 Levothyroxine Sodium 0.125 MG 0600 02/20 0600 AC 02/25 PO 0635 Magnesium Hydroxide 30 ML DAILY PRN 02/19 1615 AC PO Metoprolol Tartrate 50 MG BID 02/23 2200 AC 02/26 PO 0830 Mirabegron 25 MG 2200 02/22 2200 AC 02/26 PO 2142 Multivitamins 1 TAB DAILY 02/19 1558 AC 02/25 Therapeutic PO 0930 Ondansetron HCl 4 MG Q8H PRN 02/19 1600 AC PO Oxycodone/ 1 TAB Q6P PRN 02/21 1515 AC 02/27 Acetaminophen PO 0924 Pantoprazole Sodium 40 MG BID 02/20 2248 AC 02/26 IV 2142 Polyethylene Glycol 17 GM DAILY 02/21 1000 AC 02/26 PO 0830 Potassium Chloride 20 MEQ DAILY 02/19 1311 AC 02/25 PO 0924 Rivaroxaban 15 MG 1700 02/21 1700 AC 02/26 PO 1714 Senna/Docusate Sodium 1 TAB BID 02/19 2200 AC 02/26 PO 0831 Tiotropium [place] 1 PUF DAILY 02/19 1253 AC 02/26 INH 1715 Trazodone HCl 25 MG BID PRN 02/19 1600 AC 02/23 PO 2301 Laboratory Tests 02/27 0610 Chemistry Sodium (137 - 145 mmol/L) 135 L Potassium (3.5 - 5.1 mmol/L) 3.8 Chloride (98 - 107 mmol/L) 98 Carbon Dioxide (22 - 30 mmol/L) 31 H Anion Gap (5 - 16) 6 BUN (7 - 17 mg/dL) 14 Creatinine (0.5 - 1.0 mg/dL) 0.8 Estimated GFR (>60 ml/min) > 60 BUN/Creatinine Ratio (7 - 25 %) 17.5 Hematology CBC w Diff NO MAN DIFF REQ WBC (4.8 - 10.8 /CUMM) 8.5 RBC (4.20 - 5.40 /CUMM) 3.03 L Hgb (12.0 - 16.0 G/DL) 8.9 L Hct (37 - 47 %) 26.8 L MCV (81.0 - 99.0 FL) 88.3 MCH (27.0 - 31.0 PG) 29.3 RDW (11.5 - 14.5 %) 17.3 H Plt Count (130 - 400 /CUMM) 247 MPV (7.4 - 10.4 FL) 7.7 Gran % (42.2 - 75.2 %) 63.7 Lymphocytes % (20.5 - 51.1 %) 17.0 L Monocytes % (1.7 - 9.3 %) 13.2 H Eosinophils % (0 - 5 %) 5.5 H Basophils % (0.0 - 2.0 %) 0.6 Absolute Granulocytes (1.4 - 6.5 /CUMM) 5.4 Absolute Lymphocytes (1.2 - 3.4 /CUMM) 1.4 Absolute Monocytes (0.10 - 0.60 /CUMM) 1.1 H Absolute Eosinophils (0.0 - 0.7 /CUMM) 0.5 Absolute Basophils (0.0 - 0.2 /CUMM) 0 PUBS MCHC (33.0 - 37.0 G/DL) 33.2 Vital Signs Date Time Temp Pulse Resp B/P Pulse O2 O2 Flow FiO2 Ox Delivery Rate 02/27 0400 97.6 103 18 110/52 97 Nasal Cannula 02/27 0006 97.6 88 18 112/56 96 Nasal 3.0L Cannula 02/27 0000 Nasal 3.0L Cannula 02/26 2142 84 100/52 02/26 2000 97.3 87 24 98/54 96 Nasal 3.0L Cannula 02/26 1600 Nasal 3.0L Cannula 02/26 1559 98.3 87 18 100/54 100 Nasal 3.0L Cannula
--- NOTE | 2017-02-27 14:40 | RADIOLOGY REPORT ---
EXAMINATION: XR HIP, LEFT CLINICAL INFORMATION: Pain. Evaluate for fracture. COMPARISON: Contralateral right hip films from 02/21/2017. TECHNIQUE: Two views of the left hip. FINDINGS: Diffuse osteopenia. No acute fracture or dislocation. No significant degenerative change at the hip joint. Mild degenerative changes seen at the pubic symphysis. IMPRESSION: Osteopenia. No acute fracture.
[2017-02-27 15:30] VITALS: BP 148/60
--- NOTE | 2017-02-27 15:49 | PN- Cardiology ---
Subjective Subjective: * Patient continues to complain of pain. No fracture was discovered on her X- ray. Brathing is comfortable. * Atrial fibrillation with controlled heart rate. Objective Vital Signs and I&Os Vital Signs Date Time Temp Pulse Resp B/P Pulse O2 O2 Flow FiO2 Ox Delivery Rate 02/27 1158 20 97 Nasal 1.0L Cannula 02/27 1113 97.6 100/58 02/27 1113 95 100/58 02/27 0941 18 96 Nasal 2.0L Cannula 02/27 0800 97.6 92 20 100/58 99 Nasal 3.0L Cannula 02/27 0400 97.6 103 18 110/52 97 Nasal Cannula 02/27 0006 97.6 88 18 112/56 96 Nasal 3.0L Cannula 02/27 0000 Nasal 3.0L Cannula 02/26 2142 84 100/52 02/26 2000 97.3 87 24 98/54 96 Nasal 3.0L Cannula 02/26 1600 Nasal 3.0L Cannula 02/26 1559 98.3 87 18 100/54 100 Nasal 3.0L Cannula Intake & Output 02/27 1600 02/27 0800 02/27 0000 02/26 1600 02/26 0800 02/26 0000 Intake Total 250 200 100 25 980 Output Total 400 450 450 300 150 Balance -150 -250 -350 -300 -125 980 Intake, Blood 350 Product Intake, IV 0 0 30 Intake, Oral 250 200 100 25 600 Number 0 1 2 0 Bowel Movements Output, Urine 400 450 450 300 150 Physical Exam: General: WD/ WN female in NAD; alert and oriented x 3 Neck: no JVD, no carotid bruit Heart: irregularly irregular, no murmur Lungs: decreased air movement at bases without crackles Extremties: no edema Assessment/Plan Assessment/Plan * Patient has a much better controlled heart rate today. Continue Metoprolol to 50mg BID and her current dose of Cardizem. * Continue Lasix 20mg PO daily. * Continue Xarelto for stroke and DVT prophylaxis while following her H/H. Her tachycardia is also likely contributed to by anemia and pain. Continue telemetry? Yes
--- NOTE | 2017-02-27 16:00 | NUR ---
PHYSICAL THERAPY: ATTEMPTED TO SEE PATIENT THIS P.M. PATIENT REFUSED STATING SHE WAS IN 10/10 PAIN WITHOUT ALLEVIATION FROM RECENT PAIN MEDICATION. RN WAS NOTIFIED. THIS P.T. AND CASPER VELOZ SPOKE IN LENGTH WITH PATIENT CURRENT PLAN OF CARE, BENEFITS OF MOBILITY, AND D/C PLAN. Pt CON'T TO REFUSE, C/O PAIN FROM TRANSFER FROM BED>STRETCHER; WAS OFFERED COMFORT APPROPRIATE. RN AND MD ARE AWARE. Pt AGREEABLE TO WORK W/ P.T. IN THE A.M. WHEN HER PAIN IS BETTER MANAGED.
--- NOTE | 2017-02-27 16:31 | NUR ---
WOUND CARE: REQUESTED BY NURSING TO EVALUATE PT FOR SKIN ALTERATIONS TO BUTTOCKS/COCCYX REGION - PT OBSERVED IN BED - SIZE WALSH MATTRESS PRESENT - HX OBTAINED FROM PT - PT STATED RECENT FALL RESULTING IN HIP FRACTURE - ALSO STATED SHE DOES NOT KNOW HOW LONG SHE WAS ON THE FLOOR S/P FALL - REQUIRED ASSISTANCE WITH REPOSTIONING BY NRSG STAFF - NURSE STATED SHE OBSERVED SOME SHEER FORCE TRAUMAS TO THE BUTTOCKS WHEN PT WAS ON BEDPAN (BEDPAN HAD STCUK TO SKIN CAUSING SKIN TEAR TYPE INJURIES TO FRAGILE TISSUE) UPON ASSESEMENT, PT NOTED WITH LEFT BUTTOCKS STAGE 2 PRESSURE INJURY 5X5 CM CLEAN PINK DRY FILL NON DRNG - RIGHT BUTTOCKS 4.3 X 5 CM STAGE 2 PRESSURE INJURY CLEAN PINK/RED DRY DERMAL FILL WTIH SLIGHT MACERATION TO INNER WOUND EDGE - COCCYX UNSTAGEABLE PRESSURE INJURY 4X3 CM WITH THIN LAYER OF SEMI ADHERENT SLOUGH ATOP PREDOMINENTLY DERMAL FILL - PERIWOUND SL MACERATED - NO EVIDENCE OF INFECTION - CLEANSED WTIH NS TOLERATED - DRESSING REAPPLIED AND PT POSITIONED ON SIDELYING POSITION FOR OFFLOADING - DISCUSSED POC WTIH NURSE AND PT EDUCATED RE: POC IMPRESSION: STAGE 2 PRESSURE INJURIES SARA BUTTOCKS, UNSTAGAEBLE PRESSURE INJURY COCCYX RECOMMENDATION: CLEANSE WITH NS FB SACRAL HYDROCOLLOID DRESSING Q 3 DAYS AND PRN - PLEASE OBTAIN CLINITRON MATTRESS, PT HAS DETERIORATED ON GROUP 2 APM- DIETARY CONSULT - DR GUILLEN TO EVALUATE PLEASE - 100% OFFLOADING
[2017-02-28 00:04] VITALS: BP 100/60
[2017-02-28 06:00] VITALS: BP 105/60
[2017-02-28 08:06] VITALS: BP 120/68
--- NOTE | 2017-02-28 09:02 | PN- Housestaff ---
Subjective Follow-up For: rt. hip fracture POD 1 s/p right hip percutaneous pinning A.fib SOB Complaints: pAIN IN THE RIGHT HIP Subjective: Patient seenand examined, she is sitting in the bed, in moderate distress 2/2 to pain in the left hip. She denies any respiratory distress or chest pain. she is now off NC. She would like to take a shower. No change in urinary or bowel habits. Vitals is stabel. Review of Systems Constitutional: Reports: no symptoms. EENTM: Reports: no symptoms. Cardiovascular: Reports: no symptoms. Respiratory: Reports: no symptoms. Gastrointestinal: Reports: no symptoms. Genitourinary: Reports: no symptoms. Musculoskeletal: Reports: joint pain (Left hip). Objective Last 24 Hrs of Vital Signs/I&O Vital Signs Date Time Temp Pulse Resp B/P B/P Pulse O2 O2 Flow FiO2 Mean Ox Delivery Rate 02/28 0806 98.6 96 20 120/68 96 Room Air 02/28 0600 98.0 90 20 105/60 98 02/28 0004 98.2 70 20 100/60 90 Room Air 02/27 2135 100 116/52 02/27 2134 100 116/52 02/27 1900 98 Nasal 1.0L Cannula 02/27 1600 Nasal 1.0L Cannula 02/27 1530 98.3 101 20 148/60 95 Nasal 1.0L Cannula 02/27 1158 20 97 Nasal 1.0L Cannula 02/27 1113 97.6 100/58 02/27 1113 95 100/58 Intake & Output 02/28 1600 02/28 0800 02/28 0000 Intake Total 120 600 Output Total 300 2 Balance -180 598 Intake, Oral 120 600 Output, Other 2 Output, Urine 300 Physical Exam General Appearance: Alert, Oriented X3, Cooperative, Moderate Distress Skin: No Rashes, No Breakdown, No Significant Lesion HEENT: Atraumatic, PERRLA, EOMI, Mucous Membr. moist/pink Neck: Supple, No JVD Lymphatic: Axillary nl, Cervical nl Cardiovascular: Normal S1, Normal S2, No Murmurs Lungs: Normal Air Movement, Bilateral soft crackles Abdomen: Normal Bowel Sounds, Soft, No Tenderness Extremities: No Edema, Normal Pulses Vascular: Normal Pulses, Pulses Symmetrical Current Medications: Current Medications Sig/Timi Start time Last Medication Dose Route Stop Time Status Admin Acetaminophen 1,000 MG ONCE ONE 02/27 1615 DC N/A 1 UNIT IV 02/27 1629 Acetaminophen 325 MG Q6P PRN 02/19 1145 AC PO Albuterol Sulfate 3 ML Q4P PRN 02/19 1715 AC INH Albuterol Sulfate 3 ML Q4H PRN 02/19 1330 AC 02/23 INH 0600 Bisacodyl 10 MG DAILY PRN 02/19 1600 AC DC Cholecalciferol 1,000 IU DAILY 02/19 1300 AC 02/27 PO 1112 Dicyclomine HCl 20 MG 4 TIMES/DAY PRN 02/19 1330 AC PO Diltiazem HCl 30 MG BID 02/19 2200 AC 02/27 PO 2135 Furosemide 20 MG DAILY 02/24 1000 AC 02/27 PO 1112 Levothyroxine Sodium 0.125 MG 0600 02/20 0600 AC 02/28 PO 0645 Magnesium Hydroxide 30 ML DAILY PRN 02/19 1615 AC PO Metoprolol Tartrate 50 MG BID 02/23 2200 AC 02/27 PO 2134 Mirabegron 25 MG 2200 02/22 2200 AC 02/27 PO 2134 Multivitamins 1 TAB DAILY 02/19 1558 AC 02/27 Therapeutic PO 1112 Ondansetron HCl 4 MG Q8H PRN 02/19 1600 AC PO Oxycodone/ 1 TAB ONCE ONE 02/27 2230 DC 02/27 Acetaminophen PO 02/27 2231 2229 Oxycodone/ 1 TAB ONCE ONE 02/27 1715 DC 02/27 Acetaminophen PO 02/27 1716 1751 Oxycodone/ 1 TAB Q6P PRN 02/21 1515 DC 02/27 Acetaminophen PO 2133 Pantoprazole Sodium 40 MG BID 02/20 2248 AC 02/26 IV 2142 Patient Medication 1 ED .STK-MED ONE 02/27 1402 DC Teaching ED 02/27 1403 Polyethylene Glycol 17 GM DAILY 02/21 1000 AC 02/27 PO 1115 Potassium Chloride 20 MEQ DAILY 02/19 1311 AC 02/27 PO 1134 Rivaroxaban 15 MG 1700 02/21 1700 AC 02/27 PO 1751 Senna/Docusate Sodium 1 TAB BID 02/19 2200 AC 02/27 PO 2134 Tiotropium [place] 1 PUF DAILY 02/19 1253 AC 02/27 INH 1115 Tramadol HCl 50 MG Q6P PRN 02/28 0915 AC PO Trazodone HCl 25 MG BID PRN 02/19 1600 AC 02/23 PO 2301 Assessment/Plan Assessment: 86 yo female with pmh of A.fib on xarelto, CAD, HFpEF (EF 65%) with pulmonary HTN, 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 displaced femoral neck fracture s/p fall. 1. Rt. displaced femoral neck fracture s/p fall: S/P right hip percutaneous pinning, pain is improving surgical team signed off, she is needs a follow up appointment with surgeon in 1 week. 2. A.fib on xarelto:On Xarelto, Metoprolol continued at 50mg BID per reduction furnace operator helper yesterday. Need to monitor her heart rate and blood pressure closely. 3. HFpEF with PAH: On low dose lasix, will avoid overdiuresis, as that will decrease blood pressure and increase HR. 4. Asthma/COPD: Her respiratory status is stable, she is now on RA, O2sat.96% 5. hypothyroidism: c/w home dose levothyroxine 0.125mg daily. 6. 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 She has patent Rt. port-a-cath. Stable. ALP is elevated likely from bone metasis. 7. Transaminitis: most likely from chemotherapy. Ultrasound abdomen was unremarkable. LFT is trending down. 8. Hypokalemia/hyponatremia/ resolved: Will hold Kcl for now 9.Positive urine cx. for E.coli: the case discussed with attending who recommend to watch off antibiotic for now. 10. Lt. and Rt. foot pain: X-rays showed no active fracture, she had arthritis which most likely acting up with her acute illness. 11.Anemia: Her hemoglobin this morning is 7.7 and crit 23.5 thus received 1 unit of PRBC yesterday. Her H&H today:8.8/27.1 -Will start discharge planning to STR 12.Left Hip pain: Will order xray to r/o fracture. 13.Stage II decubitus ulcer: LEFT BUTTOCKS STAGE 2 PRESSURE INJURY 5X5 CM CLEAN PINK DRY FILL NON DRNG - RIGHT BUTTOCKS 4.3 X 5 CM STAGE 2 PRESSURE INJURY She needs to work with PT. DVT ppx: IV heparin, ALPS DNR/I, but pt will be full code when she's getting surgery. Pain pathway Problem List: 1. ATRIAL FIBRILATION 2. ARTHRITIS 3. Asthma 4. COPD 5. Diastolic heart failure 6. Impacted fracture of right hip Pain Ratin Pain Location: right hip Pain Goal: Remain pain free Pain Plan: Tramadol, tylenol Tomorrow's Labs & Rationales: - DVT/Prophylaxis: pharmacological Consulting Request: Consulting Specialty: Cardiology Consulting Physician: Dr. Neal Reason for Consult: Pre-op evaluation
--- NOTE | 2017-02-28 09:07 | NUR ---
PHYSICAL THERAPY: ATTEMPTED TO SEE PATIENT THIS A.M. PATIENT WAS RECIEVED SEATED EOB LEANING ON LEFT SIDE AGAINST ELEVATED HEAD OF BED; NOTED TO BE IN DISTRESS AND C/O HIP PAIN; STATES SHE DID NOT SLEEP WELL. REFUSING P.T. TREATMENT AT THIS TIME, STATING "I KNOW MY BODY AND RIGHT NOW MY BODY NEEDS TO REST. I CANNOT AND WILL NOT EXERCISE AT THIS TIME BUT I AM NOT LAZY, I DO WANT TO PARTICIPATE, WHEN I AM READY." PATIENT OFFERED COMFORT AND ENCOURAGEMENT APPROPRIATE. WILL NOTIFY C.M. OF REFUSAL; Pt ANTICIPATED D/C TO STR. P.T. WILL F/U APPROPRIATE.
--- NOTE | 2017-02-28 09:48 | PN- Att Addend ---
Attending Addendum Attending Brief Note Patient complaints of right hip pain. Skin: Grossly normal HEENT: PEERLA Neck: Supple, No JVD Cardiovascular: Regular Rate, Normal S1, Normal S2, No Murmurs Lungs: Decreased air entry Abdomen: Soft non tender abdomen, normal bowel sounds Neurological: Normal Speech, Strength at 5/5 X4 Ext, Cranial Nerves 3-12 NL, Reflexes 2+ Extremities: Left hip tenderness Vascular: Normal Pulses Assessment Hypoxic respiratory failure resolved. Acute blood loss anemia is stable. X-ray left hip is negative. Patient not tolerating Percocet and has significant right hip pain causing limitation with ambulation. We will discontinue Percocet and start patient on tramadol and prepare for discharge. Plan Discontinue Percocet Start tramadol 50 mg every 6 hour when necessary pain Low-dose Lasix Continue xarelto Continue other home medications Ambulate patient and out of bed to chair Current Medications Sig/Timi Start time Last Medication Dose Route Stop Time Status Admin Acetaminophen 1,000 MG ONCE ONE 02/27 1615 DC N/A 1 UNIT IV 02/27 1629 Acetaminophen 325 MG Q6P PRN 02/19 1145 AC PO Albuterol Sulfate 3 ML Q4P PRN 02/19 1715 AC INH Albuterol Sulfate 3 ML Q4H PRN 02/19 1330 AC 02/23 INH 0600 Bisacodyl 10 MG DAILY PRN 02/19 1600 AC MO Cholecalciferol 1,000 IU DAILY 02/19 1300 AC 02/27 PO 1112 Dicyclomine HCl 20 MG 4 TIMES/DAY PRN 02/19 1330 AC PO Diltiazem HCl 30 MG BID 02/19 2200 AC 02/27 PO 2135 Furosemide 20 MG DAILY 02/24 1000 AC 02/27 PO 1112 Levothyroxine Sodium 0.125 MG 0600 02/20 0600 AC 02/28 PO 0645 Magnesium Hydroxide 30 ML DAILY PRN 02/19 1615 AC PO Metoprolol Tartrate 50 MG BID 02/23 2200 AC 02/27 PO 2134 Mirabegron 25 MG 0 02/22 2200 AC 02/27 PO 2134 Multivitamins 1 TAB DAILY 02/19 1558 AC 02/27 Therapeutic PO 1112 Ondansetron HCl 4 MG Q8H PRN 02/19 1600 AC PO Oxycodone/ 1 TAB ONCE ONE 02/27 2230 DC 02/27 Acetaminophen PO 02/27 2231 2229 Oxycodone/ 1 TAB ONCE ONE 02/27 1715 DC 02/27 Acetaminophen PO 02/27 1716 1751 Oxycodone/ 1 TAB Q6P PRN 02/21 1515 DC 02/27 Acetaminophen PO 2133 Pantoprazole Sodium 40 MG BID 02/20 2248 AC 02/26 IV 2142 Patient Medication 1 ED .STK-MED ONE 02/27 1402 DC Teaching ED 02/27 1403 Polyethylene Glycol 17 GM DAILY 02/21 1000 AC 02/27 PO 1115 Potassium Chloride 20 MEQ DAILY 02/19 1311 AC 02/27 PO 1134 Rivaroxaban 15 MG 1700 02/21 1700 AC 02/27 PO 1751 Senna/Docusate Sodium 1 TAB BID 02/19 2200 AC 02/27 PO 2134 Tiotropium [place] 1 PUF DAILY 02/19 1253 AC 02/27 INH 1115 Tramadol HCl 50 MG Q6P PRN 02/28 0915 AC PO Trazodone HCl 25 MG BID PRN 02/19 1600 AC 02/23 PO 2301 Vital Signs Date Time Temp Pulse Resp B/P B/P Pulse O2 O2 Flow FiO2 Mean Ox Delivery Rate 02/28 0806 98.6 96 20 120/68 96 Room Air 02/28 0600 98.0 90 20 105/60 98 02/28 0004 98.2 70 20 100/60 90 Room Air 02/27 2135 100 116/52 02/27 2134 100 116/52 02/27 1900 98 Nasal 1.0L Cannula 02/27 1600 Nasal 1.0L Cannula 02/27 1530 98.3 101 20 148/60 95 Nasal 1.0L Cannula 02/27 1158 20 97 Nasal 1.0L Cannula 02/27 1113 97.6 100/58 02/27 1113 95 100/58
[2017-02-28] MEDS ORDERED: METOPROLOL TART50 M1 PO (12:15)
[2017-02-28 12:17] VITALS: BP 120/68
== END 2017-02-28 15:05 | DRG 480 ==
LOC: ENRESERVDT → ENRESERVTM → ERH 08:21 → 1NO 09:58 → ERHI 09:58 → EDBEDREQ 13:12 → 1NO 14:44 → 2NA 14:44 → 1NO 14:45 → ENPENDDIS 02-28 12:04 → 1NO 02-28 15:05
PROVIDERS: Dermatology; Emergency Medicine; Internal Medicine; Physician Assistant Surgical; Student in an Organized Health Care Education/Training Program; ADMIT Internal Medicine
PROC: 0QS634Z Reposition Right Upper Femur with Internal Fixation Device, Percutaneous Approach (ICD-10-PCS; principal; 2017-02-20)
PROC: 5A09357 Assistance with Respiratory Ventilation, Less than 24 Consecutive Hours, Continuous Positive Airway Pressure (ICD-10-PCS; 2017-02-23)
PROC: 30233N1 Transfusion of Nonautologous Red Blood Cells into Peripheral Vein, Percutaneous Approach (ICD-10-PCS; 2017-02-25)
DX: S72.001A Fracture of unspecified part of neck of right femur, initial encounter for closed fracture (principal); J96.01 Acute respiratory failure with hypoxia; I47.2 Ventricular tachycardia; L89.312 Pressure ulcer of right buttock, stage 2; C79.51 Secondary malignant neoplasm of bone; L89.322 Pressure ulcer of left buttock, stage 2; N18.3 Chronic kidney disease, stage 3 (moderate); C83.30 Diffuse large B-cell lymphoma, unspecified site; I50.32 Chronic diastolic (congestive) heart failure; D62 Acute posthemorrhagic anemia; E87.1 Hypo-osmolality and hyponatremia; I48.2 Chronic atrial fibrillation; J44.9 Chronic obstructive pulmonary disease, unspecified; I08.3 Combined rheumatic disorders of mitral, aortic and tricuspid valves; I27.2 Other secondary pulmonary hypertension; Z79.01 Long term (current) use of anticoagulants; E03.9 Hypothyroidism, unspecified; I25.10 Atherosclerotic heart disease of native coronary artery without angina pectoris; E87.6 Hypokalemia; G47.33 Obstructive sleep apnea (adult) (pediatric); K21.9 Gastro-esophageal reflux disease without esophagitis; W19.XXXA Unspecified fall, initial encounter; Y92.129 Unspecified place in nursing home as the place of occurrence of the external cause
CPT/HCPCS: 1NP; 36415; 73501; 73502-LT; 73502-RT; 73630-LT; 73630-RT; 81001; 82436; 86920; 87040; 87086; 87147; 93005; 93010; 96374; 96375; 97110-GO; 97162-GP; 97530-GO; J0131; J1642; J1644; J1940; J3101; J3370; J7040; J7042; P9016

== ENCOUNTER 2017-03-01 08:03 | Inpatient (IN) | payer OTHER, MEDICARE ==
[~2017-03-01] VITALS: Ht 157.5 cm; Wt 58.8 kg
[~2017-03-01 08:03] MED LIST changes: +BISACODYL10 M1 RC; +EVENING PRIMR1000 MG PO; +FLEET ENEMA133 ML RC; +LASIX20 M1 PO; +LIBRAX CAPSULE1 EACH PO; +MARINOL2.5 MG PO; +METOPROLOL TART50 M1 PO; +MILK OF MA400 MG/52 PO; +TRAZODONE HCL50 M1 PO
--- NOTE | 2017-03-01 08:15 | NUR ---
BIBA FROM [facility], SENT FOR EVALUATION OF SOB, WHEEZING, PER EMS PT \'S 02 SAT WAS IN THE 70'S, PLACED ON C-PAP AND GIVEN 1 ALBUTEOL NEB, 2 NTG, 1 INCH NTG PASTE. (PRE-HOSPITAL) 02 SAT ON ARRIVAL WAS 86%. EVALUATED BY DR. KAUR. RESP THERAPY AT BEDSIDE.
--- NOTE | 2017-03-01 08:17 | ED DYSPNEA/ASTHMA COMPLAINT ---
History of Present Illness General Chief Complaint: Dyspnea (COPD, CHF, Other) Stated Complaint: SOB Source: old records, EMS Exam Limitations: unable to give history (severe dyspnea), clinical condition Vital Signs & Intake/Output Vital Signs & Intake/Output Vital Signs Date Time Temp Pulse Resp B/P B/P Pulse O2 O2 Flow FiO2 Mean Ox Delivery Rate 03/04 0216 50 100/50 03/04 0100 68 98 03/04 0000 98 Nasal 3.0L Cannula 03/03 2200 98.2 68 20 118/64 98 Nasal 3.0L Cannula 03/03 2051 76 124/70 03/03 2051 74 124/70 03/03 1903 68 99 03/03 1705 97 Nasal 3.0L Cannula 03/03 1637 98.9 66 20 102/60 100 BIPAP 03/03 1620 58 98 03/03 1515 83 98 03/03 1253 88 144/52 03/03 1253 88 144/52 03/03 0925 88 95 03/03 0800 91 Nasal 3.5L Cannula 03/03 0758 98.1 78 18 144/52 94 Nasal 1.0L Cannula ED Intake and Output 03/04 0000 03/03 1200 Intake Total 400 200 Output Total 2050 450 Balance -1650 -250 Intake, Oral 400 200 Output, Urine 2049 450 Patient 140 lb Weight Weight Shania Lift Measurement Method Allergies Coded Allergies: Penicillins (RASH 12/16/16) acetaminophen (BURNING FEELING IN STOMACH 12/16/16) animal dander (PER 01/14/17) latex (SORES 12/16/16) mold (UNKNOWN 12/16/16) Sulfa (Sulfonamide Antibiotics) (GI 12/16/16) aspirin (MILD GI 12/16/16) diazepam (GI 12/16/16) oxycodone (GI, MIGRAINE 12/16/16) propoxyphene (GI 12/16/16) Uncoded Allergies: COLOGNE (PER PT UPSETS HER WITH THE SMELL 10/17/16) HAIR SPRAY (PER PT UPSETS HER WITH THE SMELL 10/17/16) SMOKE (PER PT CANT STAND SMELLS IT UPSETS HER 10/17/16) TOBACCO (PER 01/14/17) Reconcile Medications Bisacodyl 10 MG SUPP.RECT 1 SUP RC DAILY PRN CONSTIPATION (Reported) Cholecalciferol (Vitamin D3) (Vitamin D3) 5,000 UNIT TABLET 1 TAB PO DAILY SUPPLEMENT (Reported) Cyanocobalamin (Vitamin B-12) (Cyanocobalamin Injection) 1,000 MCG/1 ML VIAL 1 ML IM Q30D SUPPLEMENT (Reported) Reason to Stop at ADM: monthly Dicyclomine Hydrochloride (Bentyl) 10 MG CAPSULE 20 MG PO 4 TIMES/DAY stomach spasms Diltiazem HCl (Cardizem) 30 MG TABLET 30 MG PO BID heart Dronabinol (Marinol) 2.5 MG CAPSULE 1 CAP PO BID appetite (Reported) Estradiol (Climara) 0.0375 MG/24 HOUR PATCH.TDWK 1 PATCH TOP QWED HRT ( Reported) Reason to Stop at ADM: not needed in hospital Furosemide (Lasix) 20 MG TABLET 1 TAB PO DAILY diuresis Levothyroxine Sodium (Synthroid) 125 MCG TABLET 1 TAB PO QHS THYROID ( Reported) Librax (Librax Capsule) 5 MG-2.5 MG CAPSULE 1 CAP PO DAILY PRN ABD PAIN ( Reported) Magnesium Hydroxide (Milk Of Magnesia) 400 MG/5 ML ORAL.SUSP 30 ML PO DAILY PRN CONSTIPATION (Reported) NOT GIVEN IN HOSPITAL Metoprolol Tartrate 50 MG TABLET 50 MG PO BID A. fib Mirabegron (Myrbetriq) 25 MG TAB.ER.24H 1 TAB PO DAILY BLADDER (Reported) Multivitamin (Multiple Vitamins) 1 EACH TABLET 1 TAB PO DAILY SUPPLEMENT ( Reported) Na Phos,M-B/Na Phos,Di-Ba (Fleet Enema) 19 GRAM-7 GRAM/118 ML ENEMA 1 E RC DAILY PRN CONSTIPATION (Reported) Ondansetron (Zofran Odt) 4 MG TAB.RAPDIS 1 TAB SL Q8H PRN NAUSEA (Reported) Pantoprazole Sodium (Protonix) 40 MG TABLET.DR 1 TAB PO BID GI (Reported) Potassium Chloride (Klor-Con M20) 20 MEQ TAB.ER.PRT 1 TAB PO DAILY SUPPLEMENT (Reported) Prochlorperazine Maleate 10 MG TABLET 1 TAB PO Q6 PRN N/V (Reported) Rivaroxaban (Xarelto) 15 MG TABLET 1 TAB PO 1700 BLOOD THINNER (Reported) Simethicone 80 MG TAB.CHEW 1 TAB PO Q4 HRS NEEDED PRN GAS/INDIGESTION ( Reported) Tiotropium Tougaloo (Spiriva) 18 MCG CAP.W.DEV 1 CAP INH DAILY BREATHING PROBLEMS (Reported) Tramadol HCl 50 MG TABLET 1 TAB PO Q4H PRN PAIN (Reported) Trazodone HCl 50 MG TABLET 25 MG PO BID PRN anxiety/agitation (Reported) Triage Nurses Notes Reviewed? yes HPI: Patient presents for evaluation of severe dyspnea beginning this morning. Patient is at a rehabilitation facility status post hip surgery. The patient is too dyspneic to provide history. The paramedics have treated her with 2 sublingual nitroglycerin sprays and nitroglycerin paste and CPAP. Past History Travel History Traveled to [place] past 21 day No Medical History Any Pertinent Medical History? see below for history Neurological: syncope EENT: submandibular masses Cardiovascular: AFIB, CAD (s/p stent), CHF, diastolic CHF, rheumatic fever Respiratory: asthma, COPD, obstructive sleep apnea Gastrointestinal: GERD, DIVERTICULOSIS Hepatic: NONE Renal: kidney stones Musculoskeletal: osteoarthritis, sciatica, chondrocalcinosis Psychiatric: report of suicide attempt as a young woman by son Endocrine: hypothyroidism Blood Disorders: PERNICIOUS ANEMIA B12 deficiency Cancer(s): non-hodgkin lymphoma, CHEMO INJECTION GIVEN History of MRSA: No History of VRE: No History of CDIFF: No Surgical History Surgical History: cholecystectomy, hernia repair-inguinal, hysterectomy (benign) , bladder surgery Psychosocial History Who do you live with Patient/Self Services at Home Home Health Aide, Nursing What is your primary language Yemeni Family History Family History, If Any: MOTHER (hypertension, coronary artery disease and stroke). Relation not specified for: FH: coronary artery disease FH: hypertension FH: stroke Hx Contributory? No Review of Systems Review of Systems Constitutional: Reports: no symptoms. EENTM: Reports: no symptoms. Respiratory: Reports: see HPI. Cardiovascular: Reports: no symptoms. GI: Reports: no symptoms. Genitourinary: Reports: no symptoms. Musculoskeletal: Reports: no symptoms. Skin: Reports: no symptoms. Neurological/Psychological: Reports: no symptoms. Hematologic/Endocrine: Reports: no symptoms. Immunologic/Allergic: Reports: no symptoms. All Other Systems: Reviewed and Negative Physical Exam Physical Exam Respiratory: see below Comments: Gen.: Well-nourished, well-developed, severe respiratory distress, alert Head: Normocephalic, atraumatic. Eyes: Normal inspection bilaterally Ears: Normal inspection bilaterally Nose: Normal inspection Throat/mouth : Moist mucosa Neck: Supple, full range of motion, no goiter Heart: Regular rate and rhythm, no murmurs rubs or gallops Lungs: Diminished air entry bilaterally with scattered and diffuse crackles Chest: Nontender Back: Normal range of motion Abdomen: Soft, nontender, nondistended, normal bowel sounds Extremities: Normal range of motion grossly, equal radial pulses, no cyanosis, bilateral 2+ lower extremity pitting edema Neurologic: Cranial nerves grossly intact, speech is clear Skin: warm and dry, nash appearance Psychiatric: Calm, cooperative, no apparent delusions or hallucinations Core Measures ACS in differential dx? No Severe Sepsis Present: No Septic Shock Present: No Progress Differential Diagnosis: asthma, AMI, altitude sickness, bronchitis, CHF, COPD, pulmonary embolism, pneumonia, pneumothorax, unstable angina Plan of Care: Orders Procedure Date/time Status Irene, Insertion/Removal/Asses 03/03 2023 Active BIPAP 03/03 1900 Complete BIPAP 03/03 1615 Complete Lab Add-on Test 03/03 0831 Active PHOSPHORUS 03/03 0700 Complete MAGNESIUM 03/03 0700 Complete THERAPIST ORDERS 03/03 UNK Complete BIPAP 03/03 UNK Complete MISSING MEDICATION FORM 03/03 UNK Active Current Medications Sig/Timi Start time Last Medication Dose Stop Time Status Admin Rivaroxaban 15 MG 1700 03/05 1700 AC (Xarelto) Furosemide 40 MG ONCE ONE 03/03 1615 CAN (Lasix) 03/03 1616 Potassium Chloride 40 MEQ ONCE ONE 03/03 1615 CAN (K-Dur) 03/03 1616 Furosemide 40 MG BID 03/03 1000 CAN (Lasix) 03/03 2201 Lidocaine 1 PAT DAILY 03/03 1000 AC (Lidoderm) Potassium Chloride 40 MEQ DAILY 03/03 1000 AC 03/03 (K-Dur) 1253 Furosemide 40 MG 7:30 AM, & 4:30 PM 03/03 0730 AC 03/03 (Lasix) 1632 Cholecalciferol 1,000 IU DAILY 03/02 1000 AC 03/03 (Vitamin D) 1254 Multivitamins 1 TAB DAILY 03/02 1000 AC 03/03 Therapeutic 1254 (Theragran-M Vitamins Tabs) Tiotropium Tougaloo 1 PUF DAILY 03/02 1000 AC 03/02 (Spiriva) 0807 Levothyroxine Sodium 0.125 MG DAILY AC 03/02 0700 AC 03/03 (Synthroid) 1251 Omeprazole 40 MG DAILY AC 03/02 0700 AC 03/04 (Prilosec) 0651 Metoprolol Tartrate 50 MG BID 03/01 2200 AC 03/03 (Lopressor) 2050 Mirabegron 25 MG QPM 03/01 2200 AC 03/03 (Myrbetriq) 2050 Albuterol Sulfate 3 ML Q4P PRN 03/01 1400 AC (Proventil) Dicyclomine HCl 20 MG 4 TIMES/DAY 03/01 1400 AC 03/03 (Bentyl) 163 Acetaminophen 650 MG Q6P PRN 03/01 1100 AC (Tylenol) Bisacodyl 10 MG DAILY NEEDED PRN 03/01 1100 AC (Dulcolax Supp) Magnesium Hydroxide 30 ML DAILY NEEDED PRN 03/01 1100 AC (Milk Of Magnesia) Simethicone 80 MG Q4 HRS NEEDED PRN 03/01 1100 AC (Mylicon) Tramadol HCl 50 MG Q4H PRN 03/01 1100 AC 03/02 (Ultram) 0952 Trazodone HCl 25 MG BID PRN 03/01 1100 AC (Desyrel) Diltiazem HCl 30 MG BID 03/01 1049 AC 03/03 (Cardizem) 2050 Diagnostic Imaging: Discussed w/RAD: Radiology Read, CT Scan. Radiology Impression: PATIENT: ESME CARIAS PRESENT AGE: 86 PATIENT ACCOUNT NO: [id number] : [birth year] LOCATION: [facility] ORDERING PHYSICIAN: CLAIR KAUR MD SERVICE DATE: 03/01/17 EXAM TYPE: CAT - CTA CHEST-PULMONARY EMBOLISM EXAMINATION: CT ANGIOGRAM CHEST WITH AND WITHOUT CONTRAST (CT PULMONARY ANGIOGRAM FOR PE) CLINICAL INFORMATION: Dyspnea, status post hip surgery. History of lymphoma. COMPARISON: 01/14/2017 TECHNIQUE: Prior to contrast administration, noncontrast localization images were obtained. Subsequently, multidetector volumetric imaging was performed from the thoracic inlet to below the diaphragms following the administration of 95 mL Optiray 350 intravenous contrast. No contrast reaction reported. Sagittal, coronal, and MIP oblique sagittal reformatted images were obtained on the CT workstation, uploaded to PACS, and reviewed. DLP: 444 mGy-cm FINDINGS: QUALITY OF STUDY/ CONTRAST BOLUS: Satisfactory PULMONARY ARTERIES: The pulmonary arterial tree is well opacified without evidence of filling defects to suggest pulmonary emboli. THORACIC AORTA: No aneurysm or dissection. LUNGS AND PLEURA: There are moderate- sized bilateral pleural effusions with bilateral lower lobe atelectasis; associated infiltrate less likely. There is a fairly diffuse ground-glass opacity involving the majority of the well-aerated lungs with mild increased interstitial markings, most consistent with pulmonary edema; infectious or inflammatory process is less likely though not excluded. Clinical correlation and interval follow up chest x-ray is recommended. MEDIASTINUM: The heart is moderately enlarged, most notably the left atrium. No evidence of septal bowing or right heart strain. There is moderate atherosclerotic calcification. There is a right-sided implanted port with its tip at the SVC/right atrial junction. CHEST WALL/AXILLAE: There is some soft tissue prominence and/or fluid in the subcarinal region for which follow up is also recommended. This could represent some increasing adenopathy compared with the previous exam. Otherwise, there is no evidence of mediastinal or hilar adenopathy. OSSEOUS STRUCTURES: No focal aggressive lesions. UPPER ABDOMEN: Unremarkable. No reflux of contrast into the hepatic veins to suggest elevated right heart pressures. IMPRESSION: 1. No evidence of pulmonary embolism. 2. There are increasing pleural effusions with bilateral lower lobe atelectasis versus infiltrate. 3. Cardiomegaly with fairly diffuse ground-glass opacities and interstitial prominence suggesting pulmonary edema. 4. Clinical correlation recommended. DICTATED BY: JUANI BORGES MD DATE/TIME DICTATED:03/01/17915 RADIOLOGY AIDE:BALDEMAR DATE/TIME TRANSCRIBED:03/01/17915 CONFIDENTIAL, DO NOT COPY WITHOUT APPROPRIATE AUTHORIZATION. <Electronically signed in Other Vendor System> SIGNED BY: JUANI BORGES MD 03/01/17 0945 CXR Impression: PATIENT: ESME CARIAS PRESENT AGE: 86 PATIENT ACCOUNT NO: [id number] : [birth year] LOCATION: [facility] ORDERING PHYSICIAN: CLAIR KAUR MD SERVICE DATE: 03/01/17 EXAM TYPE: RAD - XRY-PORTABLE CHEST XRAY EXAMINATION: XR PORTABLE CHEST CLINICAL INFORMATION: Dyspnea, abnormal breath sounds. COMPARISON: 02/23/2017 TECHNIQUE: Portable AP view of the chest was obtained. FINDINGS: Heart remains enlarged. A single-lumen implantable catheter via a right subclavian approach with its tip at the SVC/ right atrial junction is again noted. Diffuse increase in interstitial markings and perihilar opacities appear improved compared with the previous examination, most consistent with improving pulmonary edema. More of a focal opacity persists in the right infrahilar region for which continued follow up is recommended. Opacity at the left lung base is likely a small effusion and atelectasis. Infiltrate in this region is not entirely excluded. Osseous structures appear unchanged. IMPRESSION: Findings most consistent with improving pulmonary edema with underlying cardiomegaly. DICTATED BY: JUANI BORGES MD DATE/TIME DICTATED:03/01/17847 RADIOLOGY AIDE:BALDEMAR DATE/TIME TRANSCRIBED:847 CONFIDENTIAL, DO NOT COPY WITHOUT APPROPRIATE AUTHORIZATION. < Electronically signed in Other Vendor System> SIGNED BY: JUANI BORGES MD 03/01/17 0938 Initial ED EKG: AFIB, antoni Prior EKG: unchanged Rhythm Strip: AFIB Comments: 03/01/2017 10:30:38 AM patient is currently on BiPAP and has been given Lasix. Her oxygen saturations have been stable and she has improved clinically. I have discussed her case with Dr. Casiano here in the emergency department who has evaluated the patient. MOD is aware. Departure Departure Disposition: STILL A PATIENT Condition: Stable Clinical Impression Primary Impression: Dyspnea Qualifiers: Dyspnea type: unspecified Qualified Code: R06.00 - Dyspnea, unspecified Secondary Impressions: CHF (congestive heart failure) Qualifiers: Congestive heart failure type: unspecified congestive heart failure type Congestive heart failure chronicity: acute Qualified Code: I50.9 - Heart failure, unspecified Hx of fracture of right hip Referrals: AVIS MAYBERRY,NATI Winslow (PCP/Family) Departure Forms: Customer Survey General Discharge Information Admission Note Spoke With: KEYA CASIANO MD Documentation of Exam: Documentation of any treatments & extenuating circumstances including Concerns Regarding Discharge (functional status, medication knowledge or non-compliance, living conditions, etc.) that warrant an admission rather than observation: Patient presents with worsening dyspnea secondary to congestive heart failure and the presence of a recent hip fracture. Since congestive heart failure places her at high risk of chest pain, worsening respiratory failure and respiratory arrest. She is status post hip fracture and is already in a somewhat debilitated state. Given her advanced age and multiple medical comorbidities I feel she now requires hospitalization for treatment of her congestive heart failure including Lasix and oxygen supplementation as needed. Patient should be placed on telemetry to monitor for any associated dysrhythmia. Intake and output and daily weights should be recorded and the patient should be in a negative fluid balance. Electrolytes should be monitored for the possibility of hypokalemia. Cardiology consultation and orthopedic consultation should be considered. Given this patient's advanced age and medical comorbidities, I predict her treatment and recovery will be somewhat prolonged and potentially complicated. I feel this patient will require a multiple day hospitalization. Critical Care Note Critical Care Note Critical Care Time: 30-74 min
--- NOTE | 2017-03-01 08:25 | NUR ---
PLACED ON B-PAP BY RESP THERAPY. ( 24, 27/04, %50). PORTABLE CHEST XRAY DONE.
[2017-03-01 08:32] LABS: ABSOLUTE BASOPHIL COUNT 0.1 /CUMM (0.0-0.2); ABSOLUTE EOSINOPHIL COUNT 0.2 /CUMM (0.0-0.7); ABSOLUTE GRANULOCYTE CT 6.1 /CUMM (1.4-6.5); ABSOLUTE LYMPH COUNT 3.8 /CUMM (1.2-3.4); ABSOLUTE MONOCYTE COUNT 0.7 /CUMM (0.10-0.60); BASOPHIL % 0.6 % (0.0-2.0); EOSINOPHIL % 2.1 % (0-5); GRANULOCYTE % 56.1 % (42.2-75.2); MEAN CORPUSCULAR HGB CONC 32.7 G/DL (33.0-37.0); MEAN CORPUSCULAR VOLUME 88.8 FL (81.0-99.0); MEAN PLATELET VOLUME 7.6 FL (7.4-10.4); RBC DISTRIBUTION WIDTH 16.9 % (11.5-14.5); WHITE BLOOD CELL COUNT 10.9 /CUMM (4.8-10.8)
[2017-03-01 08:36] LABS: HEMATOCRIT 34.9 % (37-47); PLATELET COUNT 416 /CUMM (130-400); RED BLOOD CELL CT 3.93 /CUMM (4.20-5.40)
--- NOTE | 2017-03-01 08:40 | NUR ---
02 SAT 96% ON BI-PAP, RESPIRATIONS LESS LABORED, C/O PAIN IN COCCYX. GROVER CATHETER INSERTED, DRAINING YELLOW URINE. 3 OPEN AREAS NOTED ON COCCYX: 2 X 2 CM (RED), 6.5 X 4 CM (RED) AND 1X1 CM (YELLOW).
--- NOTE | 2017-03-01 08:45 | NUR ---
TO CT SCAN.
--- NOTE | 2017-03-01 09:05 | NUR ---
RETRUNED FROM CT SCAN.
--- NOTE | 2017-03-01 09:25 | NUR ---
URINE TRIO SENT BY THIS [facility]
--- NOTE | 2017-03-01 09:38 | RADIOLOGY REPORT ---
EXAMINATION: XR PORTABLE CHEST CLINICAL INFORMATION: Dyspnea, abnormal breath sounds. COMPARISON: 02/23/2017 TECHNIQUE: Portable AP view of the chest was obtained. FINDINGS: Heart remains enlarged. A single-lumen implantable catheter via a right subclavian approach with its tip at the SVC/right atrial junction is again noted. Diffuse increase in interstitial markings and perihilar opacities appear improved compared with the previous examination, most consistent with improving pulmonary edema. More of a focal opacity persists in the right infrahilar region for which continued follow up is recommended. Opacity at the left lung base is likely a small effusion and atelectasis. Infiltrate in this region is not entirely excluded. Osseous structures appear unchanged. IMPRESSION: Findings most consistent with improving pulmonary edema with underlying cardiomegaly.
--- NOTE | 2017-03-01 09:45 | CT SCAN REPORT ---
EXAMINATION: CT ANGIOGRAM CHEST WITH AND WITHOUT CONTRAST (CT PULMONARY ANGIOGRAM FOR PE) CLINICAL INFORMATION: Dyspnea, status post hip surgery. History of lymphoma. COMPARISON: 01/14/2017 TECHNIQUE: Prior to contrast administration, noncontrast localization images were obtained. Subsequently, multidetector volumetric imaging was performed from the thoracic inlet to below the diaphragms following the administration of 95 mL Optiray 350 intravenous contrast. No contrast reaction reported. Sagittal, coronal, and MIP oblique sagittal reformatted images were obtained on the CT workstation, uploaded to PACS, and reviewed. DLP: 444 mGy-cm FINDINGS: QUALITY OF STUDY/CONTRAST BOLUS: Satisfactory PULMONARY ARTERIES: The pulmonary arterial tree is well opacified without evidence of filling defects to suggest pulmonary emboli. THORACIC AORTA: No aneurysm or dissection. LUNGS AND PLEURA: There are moderate-sized bilateral pleural effusions with bilateral lower lobe atelectasis; associated infiltrate less likely. There is a fairly diffuse ground-glass opacity involving the majority of the well-aerated lungs with mild increased interstitial markings, most consistent with pulmonary edema; infectious or inflammatory process is less likely though not excluded. Clinical correlation and interval follow up chest x-ray is recommended. MEDIASTINUM: The heart is moderately enlarged, most notably the left atrium. No evidence of septal bowing or right heart strain. There is moderate atherosclerotic calcification. There is a right-sided implanted port with its tip at the SVC/right atrial junction. CHEST WALL/AXILLAE: There is some soft tissue prominence and/or fluid in the subcarinal region for which follow up is also recommended. This could represent some increasing adenopathy compared with the previous exam. Otherwise, there is no evidence of mediastinal or hilar adenopathy. OSSEOUS STRUCTURES: No focal aggressive lesions. UPPER ABDOMEN: Unremarkable. No reflux of contrast into the hepatic veins to suggest elevated right heart pressures. IMPRESSION: 1. No evidence of pulmonary embolism. 2. There are increasing pleural effusions with bilateral lower lobe atelectasis versus infiltrate. 3. Cardiomegaly with fairly diffuse ground-glass opacities and interstitial prominence suggesting pulmonary edema. 4. Clinical correlation recommended.
--- NOTE | 2017-03-01 10:41 | History & Physical ---
See Addendum General Information and HPI MD Statement: I have seen and personally examined ESME SALDANA and documented this H& P. The patient is a 86 year old F who presented with a patient stated chief complaint of [SOB]. 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 hip fracture s/p percutaneous pinning, BIBA from STR for SOB started today at am. Patient discharged from yesterday after being treated for RT. hip fracture, during her hospitalization she was seen by bilingual spanish inbound sales for A.fib, borderline BP and CHF. She developed respiratory failure after surgical procedure managed with Bipap and gentle diuresis. Prior to discharge her B- durga dose increase per cardiologit, her hospitalization was also complicated with anemia, she recived 1 unit of blood. On discharge day her respiratory status was improved. 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 She was initiated on Bipap by EMS. Her son was at bedside during the encounter, she was on Bipap, no fever, chills , cough was reported. Allergies/Medications Allergies: Coded Allergies: Penicillins (RASH 12/16/16) acetaminophen (BURNING FEELING IN STOMACH 12/16/16) animal dander (PER MAR 01/14/17) garlic (UNKNOWN, LISTED ON JAN W NO REACTION NOTED 02/19/17) latex (SORES 12/16/16) mold (UNKNOWN 12/16/16) onion (UNKNOWN - PER MAR NO REACTION NOTED 02/19/17) Sulfa (Sulfonamide Antibiotics) (GI 12/16/16) aspirin (MILD GI 12/16/16) diazepam (GI 12/16/16) oxycodone (GI, MIGRAINE 12/16/16) propoxyphene (GI 12/16/16) Uncoded Allergies: COLOGNE (PER PT UPSETS HER WITH THE SMELL 10/17/16) HAIR SPRAY (PER PT UPSETS HER WITH THE SMELL 10/17/16) SMOKE (PER PT CANT STAND SMELLS IT UPSETS HER 10/17/16) TOBACCO (PER 01/14/17) Home Med list Bisacodyl 10 MG SUPP.RECT 1 SUP RC DAILY PRN CONSTIPATION (Reported) Cholecalciferol (Vitamin D3) (Vitamin D3) 5,000 UNIT TABLET 1 TAB PO DAILY SUPPLEMENT (Reported) Cyanocobalamin (Vitamin B-12) (Cyanocobalamin Injection) 1,000 MCG/1 ML VIAL 1 ML IM Q30D SUPPLEMENT (Reported) Reason to Stop at ADM: monthly Dicyclomine Hydrochloride (Bentyl) 10 MG CAPSULE 20 MG PO 4 TIMES/DAY stomach spasms Diltiazem HCl (Cardizem) 30 MG TABLET 30 MG PO BID heart Dronabinol (Marinol) 2.5 MG CAPSULE 1 CAP PO BID appetite (Reported) Estradiol (Climara) 0.0375 MG/24 HOUR PATCH.TDWK 1 PATCH TOP QWED HRT ( Reported) Reason to Stop at ADM: not needed in hospital Furosemide (Lasix) 20 MG TABLET 1 TAB PO DAILY diuresis Levothyroxine Sodium (Synthroid) 125 MCG TABLET 1 TAB PO QHS THYROID ( Reported) Librax (Librax Capsule) 5 MG-2.5 MG CAPSULE 1 CAP PO DAILY PRN ABD PAIN ( Reported) Magnesium Hydroxide (Milk Of Magnesia) 400 MG/5 ML ORAL.SUSP 30 ML PO DAILY PRN CONSTIPATION (Reported) NOT GIVEN IN HOSPITAL Metoprolol Tartrate 50 MG TABLET 50 MG PO BID A. fib Mirabegron (Myrbetriq) 25 MG TAB.ER.24H 1 TAB PO DAILY BLADDER (Reported) Multivitamin (Multiple Vitamins) 1 EACH TABLET 1 TAB PO DAILY SUPPLEMENT ( Reported) Na Phos,M-B/Na Phos,Di-Ba (Fleet Enema) 19 GRAM-7 GRAM/118 ML ENEMA 1 E RC DAILY PRN CONSTIPATION (Reported) Ondansetron (Zofran Odt) 4 MG TAB.RAPDIS 1 TAB SL Q8H PRN NAUSEA (Reported) Pantoprazole Sodium (Protonix) 40 MG TABLET.DR 1 TAB PO BID GI (Reported) Potassium Chloride (Klor-Con M20) 20 MEQ TAB.ER.PRT 1 TAB PO DAILY SUPPLEMENT (Reported) Prochlorperazine Maleate 10 MG TABLET 1 TAB PO Q6 PRN N/V (Reported) Rivaroxaban (Xarelto) 15 MG TABLET 1 TAB PO 1700 BLOOD THINNER (Reported) Simethicone 80 MG TAB.CHEW 1 TAB PO Q4 HRS NEEDED PRN GAS/INDIGESTION ( Reported) Tiotropium [place] (Spiriva) 18 MCG CAP.W.DEV 1 CAP INH DAILY BREATHING PROBLEMS (Reported) Tramadol HCl 50 MG TABLET 1 TAB PO Q4H PRN PAIN (Reported) Trazodone HCl 50 MG TABLET 25 MG PO BID PRN anxiety/agitation (Reported) Past History Travel History Traveled to [place] past 21 day No Medical History Neurological: syncope EENT: submandibular masses Cardiovascular: AFIB, CAD (s/p stent), CHF, diastolic CHF, rheumatic fever Respiratory: asthma, COPD, obstructive sleep apnea Gastrointestinal: GERD, DIVERTICULOSIS Hepatic: NONE Renal: kidney stones Musculoskeletal: osteoarthritis, sciatica, chondrocalcinosis Psychiatric: report of suicide attempt as a young woman by son Endocrine: hypothyroidism Blood Disorders: PERNICIOUS ANEMIA B12 deficiency Cancer(s): non-hodgkin lymphoma, CHEMO INJECTION GIVEN History of MRSA: No History of VRE: No History of CDIFF: No Surgical History Surgical History: cholecystectomy, hernia repair-inguinal, hysterectomy (benign) , bladder surgery, Rt. hip percutaneous pinning Past Family/Social History Family History Relations & Conditions if any MOTHER (hypertension, coronary artery disease and stroke). Relation not specified for: FH: coronary artery disease FH: hypertension FH: stroke Psychosocial History Services at Home: Home Health Aide, Nursing Primary Language: New Zealander ETOH Use: denies use Living Will? no Power of Quality Assurance Associate/HCP? yes Name of POA/HCP: Pt's son, Juliocesar Saldana. Functional Ability ADLs Independent: dressing, eating, toileting, bathing. Ambulation: independent IADLs Independent: shopping, housework, finances, food prep, telephone, transportation , medication admin. Review of Systems Review of Systems Constitutional: Reports: no symptoms. Respiratory: Reports: short of breath. Exam & Diagnostic Data Last 24 Hrs of Vital Signs/I&O Vital Signs Date Time Temp Pulse Resp B/P B/P Pulse O2 O2 Flow FiO2 Mean Ox Delivery Rate 03/01 0932 86 98 04/20 0917 101 20 106/60 96 BIPAP 40% 03/01 0844 96 BIPAP 9L 03/01 08 132 96 03/01 0816 96.8 88 32 143/78 86 CPAP 9L Intake & Output 03/01 1600 03/01 0800 03/01 0000 Intake Total 20 Output Total Balance 20 Intake, IV 20 Patient 160 lb Weight Weight Reported by Patient Measurement Method Physical Exam General Appearance Alert, Moderate Distress Skin No Rashes, No Breakdown Cardiovascular Normal S1, Normal S2 Lungs Decrease air entry B/L with B/L basal crackle Abdomen Normal Bowel Sounds, Soft, No Tenderness Extremities +1 edema Vascular Normal Pulses, Pulses Symmetrical Last 24 Hrs of Labs/Bill: Laboratory Tests 03/01/17921: Urine Color YEL, Urine Clarity HAZY H, Urine pH 6.5, Ur Specific [place] 1.010, Urine Protein NEG, Urine Ketones NEG, Urine Nitrite POS H, Urine Bilirubin NEG, Urine Urobilinogen 0.2, Ur Leukocyte Esterase LARGE H, Ur Microscopic SEDIMENT EXAMINED, Urine RBC 1-3, Urine WBC 25-50 H, Ur Epithelial Cells MOD H, Urine Bacteria MANY H, Hyaline Casts RARE H, Urine Hemoglobin TRACE-INTACT, Urine Glucose NEG 03/01/17 0824: Anion Gap 10, Estimated GFR > 60, BUN/Creatinine Ratio 13.8, Glucose 145 H, Calcium 8.9, Magnesium 1.8, Troponin I < 0.01, Seq-R-Jfehclmieff Pept 31199 H, CBC w Diff NO MAN DIFF REQ, RBC 3.93 L, MCV 88.8, MCH 29.0, RDW 16.9 H, MPV 7.6, Gran % 56.1, Lymphocytes % 34.6, Monocytes % 6.6, Eosinophils % 2.1, Basophils % 0.6, Absolute Granulocytes 6.1, Absolute Lymphocytes 3.8 H, Absolute Monocytes 0.7 H, Absolute Eosinophils 0.2, Absolute Basophils 0.1, PUBS MCHC 32.7 L Microbiology 03/01 922 URINE ROUT: Urine Culture - RECD 03/01 849 URINE ROUT: Urine Culture - CAN Cancelled: Cancelled via OE: DUPLICATE ORDER Diagnostic Data EKG Results A.fib rate controlled CXR Results IMPRESSION: Findings most consistent with improving pulmonary edema with underlying cardiomegaly. Other Results CTA: IMPRESSION: 1. No evidence of pulmonary embolism. 2. There are increasing pleural effusions with bilateral lower lobe atelectasis versus infiltrate. 3. Cardiomegaly with fairly diffuse ground-glass opacities and interstitial prominence suggesting pulmonary edema. 4. Clinical correlation recommended. 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 hip fracture s/p percutaneous pinning, BIBA from STR for SOB started today at am. admitted to telemetry floor for acute CHF exacerbation. 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 s/p chemotherapy: #Anemia: #Multiple joint pain/ arthritis #Stage II decubitus ulcer: Plan: -Will admitt the patient to telemetry floor -Will place a cardiology consult with -Will trend EKG and troponin -Will start IV Lasix 40mg BID -Will continue cardizem, metoprolol at home dose -Will continue Xarelto for A.fib -Strict I's AND O's -daily weight -Will repeat bep, cbc at am -Continue Biapa for now -[facility] nebs -Will continue other home meds -Pain management with Tramadol and tylenol -Wound care for stage II decubitus ulcer CHF diet DNR/DNI Xarelto for dvt ppx As Ranked By This Provider Problem List: 1. ATRIAL FIBRILATION 2. ARTHRITIS 3. Non Hodgkin's lymphoma 4. Congestive heart failure 5. Dyspnea 6. Anemia Core Measures/Miscellaneous Acute Coronary Syndrome ACS Diagnosis: No Cerebrovascular Accident CVA/TIA Diagnosis: No Congestive Heart Failure CHF Diagnosis: Yes Venous Thromboembolism VTE Risk Factors: Acute medical illness, Age > 40, CHF or Resp failure [facility] prophylaxis d/t: No contraindications No VTE Pharm Prophylaxis d/t: No contraindications VTE Diagnosis: No VTE Type: NONE VTE Confirmed by (Test): NONE Severe Sepsis Severe Sepsis Present: No Septic Shock Septic Shock Present: No Miscellaneous Documentation Attending Case Discussed With: NATI ALBARRAN MD Primary Care Physician: NATI ALBARRAN MD Patient sees these Specialists Financial Planning Consultant Level of Patient Care: Telemetry
--- NOTE | 2017-03-01 10:44 | NUR ---
bed assignment 181-1
--- NOTE | 2017-03-01 11:29 | NUR ---
RESPIRATORY THERAPIST HERE, BI-PAP DC'D, PLACED ON 02 AT 2L NASAL CANNULA. 02 SAT 96-98%.
--- NOTE | 2017-03-01 11:38 | NUR ---
NTG PASTE REMOVED FROM LEFT CHEST WALL. TOLERATING SIPS OF WATER.
--- NOTE | 2017-03-01 11:56 | NUR ---
REPORT TO TELEMETRY (ALEJANDRO).
[2017-03-01 12:50] VITALS: BP 100/60
--- NOTE | 2017-03-01 13:46 | NUR ---
wound care: pt seen for pressure injuries present on admission - hx obtained from pt - readmitted due to episode of respiratory distress while at [facility] - pt known to this policy writer sales from recent admission s/p hip fracture - skin assessment performed while pt in bed - right hip closed approximated surgical wound approx 5 cm with mandy intact - periwound bruising extending across right hip approx 20x20 cm fading echymosis - left buttocks stage 2 pressure injury 4x5 cm dry pink dermal fill non drng - right buttocks 2x2.5 cn dry pink dermal fill no drng - coccyx noted with a 3.6 x 3 cm open area unstageable - 50% of wound base noted wtih a moist pink dermal fill to margins, and a 1.5 cm circular patch of yellow thick slough at center of wound base - small amount of serous drng noted- no evidence of infection - pt c/o sl discomfort to all wound areas - cleansed wtih ns and cover dressing applied - pt educated re: importance of strict offloading wib and need for specialty mattress as pt is high risk for breakdown due to her limited mobility - stated an undedrstanding and appreciation impression: stage 2 pressure injuries lillian buttocks and unstageable pressure injury coccyx present on admission recommendation: pt will require a clinitron mattress as she is high risk and had already deteriorated while on group 2 mattress in recent past - cleanse all wounds with ns fb hydrocolloid dressing q 3 days and prn - avoid use of barrier cream zinc oxide at this time as it will dry out and already overly dry wound base, and pt will require moist wound care and autolytic debridement to facilitate healing - dietary consult please - pt should also have a formal wound consult with dr crow please
--- NOTE | 2017-03-01 17:17 | Cons- Orthopedic ---
SHIV STANLEY PA-C 03/01/17 1703: General Information and HPI Consulting Request Date of Consult: 03/01/17 Requested By: AVIS MAYEBRRY,NATI Winslow Reason for Consult: R HIP PAIN AND SWELLING, POST OP. Source of Information: patient, old records, PCP Exam Limitations: no limitations History of Present Illness: 86-year-old female admitted for acute CHF exacerbation. She is admitted to the medical service on telemetry. Orthopedic surgery was consulted regarding her right hip, to evaluate for hematoma and pain. Patient is 9 days postop right hip valgus impacted femoral neck fracture that was minimally displaced status post ORIF with 3 percutaneous cannulated screws on 02/20/17. Patient had been doing fair postoperatively however had complications of postoperative hematoma, likely secondary to her ELIQUIS that she is on for atrial fibrillation. She was made weightbearing as tolerated however, according to patient, her progress. Physical therapy has been very slow, she has pain in the thigh, generalized weakness and increased edema of the right lower extremity. She was noted to have a hematoma on admission to the right lateral proximal thigh region over her incision site. Patient does not complain of any worsening pain recently, she has no recent fall or injury. She states that she has not been ambulatory or been putting weight on the leg secondary to her overall deconditioning and pain. Allergies/Medications Allergies: Coded Allergies: Penicillins (RASH 12/16/16) acetaminophen (BURNING FEELING IN STOMACH 12/16/16) animal dander (PER 01/14/17) garlic (UNKNOWN, LISTED ON JAN W NO REACTION NOTED 02/19/17) latex (SORES 12/16/16) mold (UNKNOWN 12/16/16) onion (UNKNOWN - PER MAR NO REACTION NOTED 02/19/17) Sulfa (Sulfonamide Antibiotics) (GI 12/16/16) aspirin (MILD GI 12/16/16) diazepam (GI 12/16/16) oxycodone (GI, MIGRAINE 12/16/16) propoxyphene (GI 12/16/16) Uncoded Allergies: COLOGNE (PER PT UPSETS HER WITH THE SMELL 10/17/16) HAIR SPRAY (PER PT UPSETS HER WITH THE SMELL 10/17/16) SMOKE (PER PT CANT STAND SMELLS IT UPSETS HER 10/17/16) TOBACCO (PER 01/14/17) Home Med List: Bisacodyl 10 MG SUPP.RECT 1 SUP RC DAILY PRN CONSTIPATION (Reported) Cholecalciferol (Vitamin D3) (Vitamin D3) 5,000 UNIT TABLET 1 TAB PO DAILY SUPPLEMENT (Reported) Cyanocobalamin (Vitamin B-12) (Cyanocobalamin Injection) 1,000 MCG/1 ML VIAL 1 ML IM Q30D SUPPLEMENT (Reported) Reason to Stop at ADM: monthly Dicyclomine Hydrochloride (Bentyl) 10 MG CAPSULE 20 MG PO 4 TIMES/DAY stomach spasms Diltiazem HCl (Cardizem) 30 MG TABLET 30 MG PO BID heart Dronabinol (Marinol) 2.5 MG CAPSULE 1 CAP PO BID appetite (Reported) Estradiol (Climara) 0.0375 MG/24 HOUR PATCH.TDWK 1 PATCH TOP QWED HRT ( Reported) Reason to Stop at ADM: not needed in hospital Furosemide (Lasix) 20 MG TABLET 1 TAB PO DAILY diuresis Levothyroxine Sodium (Synthroid) 125 MCG TABLET 1 TAB PO QHS THYROID ( Reported) Librax (Librax Capsule) 5 MG-2.5 MG CAPSULE 1 CAP PO DAILY PRN ABD PAIN ( Reported) Magnesium Hydroxide (Milk Of Magnesia) 400 MG/5 ML ORAL.SUSP 30 ML PO DAILY PRN CONSTIPATION (Reported) NOT GIVEN IN HOSPITAL Metoprolol Tartrate 50 MG TABLET 50 MG PO BID A. fib Mirabegron (Myrbetriq) 25 MG TAB.ER.24H 1 TAB PO DAILY BLADDER (Reported) Multivitamin (Multiple Vitamins) 1 EACH TABLET 1 TAB PO DAILY SUPPLEMENT ( Reported) Na Phos,M-B/Na Phos,Di-Ba (Fleet Enema) 19 GRAM-7 GRAM/118 ML ENEMA 1 E RC DAILY PRN CONSTIPATION (Reported) Ondansetron (Zofran Odt) 4 MG TAB.RAPDIS 1 TAB SL Q8H PRN NAUSEA (Reported) Pantoprazole Sodium (Protonix) 40 MG TABLET.DR 1 TAB PO BID GI (Reported) Potassium Chloride (Klor-Con M20) 20 MEQ TAB.ER.PRT 1 TAB PO DAILY SUPPLEMENT (Reported) Prochlorperazine Maleate 10 MG TABLET 1 TAB PO Q6 PRN N/V (Reported) Rivaroxaban (Xarelto) 15 MG TABLET 1 TAB PO 1700 BLOOD THINNER (Reported) Simethicone 80 MG TAB.CHEW 1 TAB PO Q4 HRS NEEDED PRN GAS/INDIGESTION ( Reported) Tiotropium [place] (Spiriva) 18 MCG CAP.W.DEV 1 CAP INH DAILY BREATHING PROBLEMS (Reported) Tramadol HCl 50 MG TABLET 1 TAB PO Q4H PRN PAIN (Reported) Trazodone HCl 50 MG TABLET 25 MG PO BID PRN anxiety/agitation (Reported) Past History Medical History Neurological: syncope EENT: submandibular masses Cardiovascular: AFIB, CAD (s/p stent), CHF, diastolic CHF, rheumatic fever Respiratory: asthma, COPD, obstructive sleep apnea Gastrointestinal: GERD, DIVERTICULOSIS Hepatic: NONE Renal: kidney stones Musculoskeletal: osteoarthritis, sciatica, chondrocalcinosis Psychiatric: report of suicide attempt as a young woman by son Endocrine: hypothyroidism Blood Disorders: PERNICIOUS ANEMIA B12 deficiency Cancer(s): non-hodgkin lymphoma, CHEMO INJECTION GIVEN Surgical History Pertinent Surgical History: cholecystectomy, hernia repair-inguinal, hysterectomy (benign), bladder surgery Rt. hip percutaneous pinning Family History Relations & Conditions If Any: MOTHER (hypertension, coronary artery disease and stroke). Relation not specified for: FH: coronary artery disease FH: hypertension FH: stroke Psychosocial History Services at Home: Home Health Aide, Nursing Primary Language: Cameroonian ETOH Use: denies use Living Will? no Power of Channel Development Director/HCP? yes Name of POA/HCP: Pt's son, Juliocesar Saldana. Functional Ability ADLs Independent: dressing, eating, toileting, bathing. Ambulation: independent IADLs Independent: shopping, housework, finances, food prep, telephone, transportation , medication admin. Review of Systems Review of Systems: Review of systems: See HPI, all other systems negative. Constitutional: No chills fever or weight loss HEENT: No visual changes no sore throat no congestion Cardiovascular: Positive shortness of breath and dyspnea on exertion Skin: No jaundice no rashes Respiratory: Positive shortness of breath and dyspnea on exertion GI: No nausea no vomiting : No dysuria no hematuria Musclulo skeletal: No back pain no neck pain, Neurologic: No numbness no confusion Psych: Positive anxiety Heme/endocrine: No bruising no bleeding no polyuria or polydipsia Immunology: No splenectomy or history of AIDS Exam & Diagnostic Data Vital Signs and I&O Vital Signs Date Time Temp Pulse Resp B/P B/P Pulse O2 O2 Flow FiO2 Mean Ox Delivery Rate 03/01 1335 97 Nasal 4.0L Cannula 03/01 1330 Nasal 4.0L Cannula 03/01 1327 86 100/60 03/01 1250 97.5 85 20 100/60 97 Nasal 4.0L Cannula 03/01 1221 86 98 03/01 1125 95.6 94 20 100/56 100 Room Air 3.0L 03/01 0932 86 98 03/01 0917 101 20 106/60 96 BIPAP 40% 03/01 0844 96 BIPAP 9L 03/01 0822 132 96 03/01 0816 96.8 88 32 143/78 86 CPAP 9L Intake & Output 03/01 1600 03/01 0800 03/01 0000 02/28 1600 02/28 0802/28 0000 Intake Total 130 Output Total 1000 Balance -870 Intake, IV 130 Output, Urine 1000 Patient 160 lb Weight Weight Reported by Patient Measurement Method Physical Exam: Well-developed well-nourished no apparent distress. Elderly female, appears stated age, lying on bed in no acute distress. HEENT: Atraumatic, extraocular motion intact Neck: Supple, no lymphadenopathy Respiratory: No respiratory distress Extremities: 1+ pitting edema left lower extremity 2+ pitting edema right lower extremity Right hip and thigh with moderate swelling. There is a hematoma noted to the right proximal lateral thigh region at the incision site. The surgical incision is healing well, mandy are in place, no erythema, no warmth, no discharge. There is moderate tenderness to palpation of the hematoma. Right hip range of motion is severely limited secondary to pain however there is no shortening or rotation, there is a negative roll sign. Neurovascularly intact distally Bilateral calves are soft, nontender, negative Homans sign Neuro: Awake and alert, oriented x3 Psych: Mood affect normal, normal memory normal judgment. Skin: Warm and dry, no rash on exposed skin Last 24 Hours of Labs: Laboratory Tests 03/01 03/01 03/01 1630 1620 0922 Chemistry Troponin I Cancelled Pending Urines Urine Color (YEL,AMB,STR) YEL Urine Clarity (CLEAR) HAZY H Urine pH (5.0 - 8.0) 6.5 Ur Specific [place] (1.001 - 1.035) 1.010 Urine Protein (NEG,<30 MG/DL) NEG Urine Ketones (NEG) NEG Urine Nitrite (NEG) POS H Urine Bilirubin (NEG) NEG Urine Urobilinogen (0.1 - 1.0 EU/dl) 0.2 Ur Leukocyte Esterase (NEG) LARGE H Ur Microscopic SEDIMENT EXAMINED Urine RBC (0 - 5 /HPF) 1-3 Urine WBC (0 - 2 /HPF) 25-50 H Ur Epithelial Cells (NONE,FEW) MOD H Urine Bacteria (NEG/NONE) MANY H Hyaline Casts (0/LPF) RARE H Urine Hemoglobin (NEG) TRACE-INTACT Urine Glucose (N MG/DL) NEG 03/01 0824 Chemistry Sodium (137 - 145 mmol/L) 135 L Potassium (3.5 - 5.1 mmol/L) 4.0 Chloride (98 - 107 mmol/L) 96 L Carbon Dioxide (22 - 30 mmol/L) 29 Anion Gap (5 - 16) 10 BUN (7 - 17 mg/dL) 11 Creatinine (0.5 - 1.0 mg/dL) 0.8 Estimated GFR (>60 ml/min) > 60 BUN/Creatinine Ratio (7 - 25 %) 13.8 Glucose (65 - 99 mg/dL) 145 H Calcium (8.4 - 10.2 mg/dL) 8.9 Magnesium (1.6 - 2.3 mg/dL) 1.8 Troponin I (< 0.11 ng/ml) < 0.01 Wpe-X-Tlpplzglemg Pept (<125 pg/mL) 43187 H Hematology CBC w Diff NO MAN DIFF REQ WBC (4.8 - 10.8 /CUMM) 10.9 H RBC (4.20 - 5.40 /CUMM) 3.93 L Hgb (12.0 - 16.0 G/DL) 11.4 L Hct (37 - 47 %) 34.9 L MCV (81.0 - 99.0 FL) 88.8 MCH (27.0 - 31.0 PG) 29.0 RDW (11.5 - 14.5 %) 16.9 H Plt Count (130 - 400 /CUMM) 416 H MPV (7.4 - 10.4 FL) 7.6 Gran % (42.2 - 75.2 %) 56.1 Lymphocytes % (20.5 - 51.1 %) 34.6 Monocytes % (1.7 - 9.3 %) 6.6 Eosinophils % (0 - 5 %) 2.1 Basophils % (0.0 - 2.0 %) 0.6 Absolute Granulocytes (1.4 - 6.5 /CUMM) 6.1 Absolute Lymphocytes (1.2 - 3.4 /CUMM) 3.8 H Absolute Monocytes (0.10 - 0.60 /CUMM) 0.7 H Absolute Eosinophils (0.0 - 0.7 /CUMM) 0.2 Absolute Basophils (0.0 - 0.2 /CUMM) 0.1 PUBS MCHC (33.0 - 37.0 G/DL) 32.7 L Assessment/Plan Assessment/Plan Postop day #9 status post right hip femoral neck fracture ORIF percutaneous pinning with cannulated screws, admitted for acute CHF exacerbation. -Orthopedically, patient has a hematoma to the right lateral thigh and subsequent postoperative swelling to the right lower leg. This is related to her surgery and subsequent anticoagulation. We will check a right hip x-ray to ensure that the fracture site looks well and the hardware is intact. Recommend nonweightbearing until x-ray is done, if it is unchanged, she may weight-bear as tolerated on the right lower extremity. She should be out of bed with physical therapy to aid in her overall deconditioning. There are no signs of infection and no surgical indication for evacuation of hematoma, it will resolve on its own. Discussed with Dr. Reyes, will follow along. Consult Acknowledgment - Thank you for your consult request. TAN MAYBERRYKITTY 03/02/17 0755: Assessment/Plan Consult Acknowledgment - Thank you for your consult request. Attending MD Review Statement Attending Statement Attending Assessment/Plan: Agree with above, no indication for surgical intervention. Can be weight bearing as tolerated in PT. Per cardiology she can hold eliquis for 5 days then resume.
--- NOTE | 2017-03-01 18:00 | NUR ---
NURSING NOTE; PT S/P R) HIP PINNING 02/20. R) HIP INCISION RADHA WITH LOKESH. AREA VERY SWOLLEN WITH BRUISING. C/O 08/21 PAIN. PAIN UNRELIEVED BY TRAMDOL BUT PAIN 02/19 AFTER RECEIVING IV TYLENOL. PT EVALUATED BY RESIDENT WHO THEN ASKED SURGICAL PA TO EVALUATE R) HIP INCISION. PT NOW AWAITING R) HIP XRAY. CLINITRON BED ORDERED TODAY FOR SKIN BREAKDOWN TO COCCYX AND B/L BUTTOCKS.
--- NOTE | 2017-03-01 18:25 | Admission Certification ---
Admission Certification Certification Statement - As attending physician, I certify that at the time of - admission, based on clinical presentation, severity of - symptoms, need for further diagnostic testing and - therapeutic interventions, and risk of adverse outcomes - without in-hospital treatment, in my clinical assessment, - this patient requires an acute hospital stay for a minimum - of two nights or longer. I have also considered psychsocial - factors such as support system, advanced age, financial - issues, cognitive issues, and failed out-patient treatments, - past re-admission history, safety of patient, and lack of - compliance as applicable. Specific rationale supporting this admission is: hypoxic respiratory failure, CHF
--- NOTE | 2017-03-01 20:36 | Cons- Cardiology ---
General Information and HPI Consulting Request Date of Consult: 03/01/17 Requested By: NATI ALBARRAN MD History of Present Illness: Shayna Madrid is an 86 year old female who carries a history of coronary artery disease, atrial fibrillation, and asthma. She was recently diagnosed with a B- call lymphoma and underwent chemotherapy. Metastatses have been noted in her scapula and acetabulum. About 10 days ago Malvin was brought to the ER after a fall that resulted in a right hip fracture. She underwent surgery which went well although the patient felt worn out post-op and did have severe pain after surgery. Yesterday, this patient was discharged from the hospital but returned today due to a large swelling over her surgical site. In addition, this patient was very short of breath. Otherwise she denies any chest discomfort, lightheadedness or palpitations. Shayna Madrid does feel persistently tired since her diagnosis of Lymphoma and since beginning chemotherapy. The lymphoma also gives her diffuse achiness with pain in her back, epgastric region chest and abdomen. She has also lost weight. At her baseline, Shayna has mild exertional shortness of breath without orthopnea. She will also become transiently lightheaded if arising quickly from a sitting or supine position although this symptom appears to also be exacerbated by turning her head and I think are more consistent with a labyrinthitis. It should be recalled that she had an enlarged salivary gland on the right lower jaw that turned out to be a lymphoma. Her last echocardiogram showed a normal EF of 70% with biatrial enlargement, moderate mitral, tricuspid and pulmonic regurgitation and mild to moderate aortic regurgitation. Her aortic valve showed moderate stenosis. She also had moderate mitral stenosis with mild pulmonary hypertension. Due to prior lightheadedness we discontinued lisinopril and decreased her metoprolol to 50mg BID. Her lightheadedness is improved but not gone. She was last admitted to for evaluation of an atypical chest discomfort and SOB in May 2013. She ruled out for myocardial infarction at that time. Shayna Madrid was very concerned about the possibility of aortic stenosis and therefore she saw Dr. Nati Barone who reassured her that she did not have any significant aortic stenosis and did not need any intervention for her aortic valve at this point in time. On occasion, the patient will report some epigastric discomfort radiating up to her chest and she has complained of some atypical nonexertional chest discomfort behind her left breast which often occurs at rest. In consideration of the above symptoms, I did pursue a stress test which showed a small area of apical ischemia. I did opt to pursue cardiac catheterization for an unequivocal diagnosis. This procedure was performed in December of 2012 and showed the following anatomy: The left main demonstrated luminal irregularities. The LAD has a 30% non-flow limiting mid lesion with luminal irregularities throughout the rest of its course. The left circumflex has luminal irregularities in the AV groove as well as in the obtuse marginal II. There is a very small obtuse marginal one with a stable 80% ostial stenosis. The RCA is dominant with luminal irregularities up to 30-40% in the ostial region of this vessel. Left ventriculography showed an overall EF of 60% with mild to moderate mitral regurgitation. It is my feeling that the patient had nonobstructive coronary artery disease and medical therapy has been pursued. The patient's most recent echo shows a normal EF of 60% with mild biatrial enlargement. She ahs moderate eccentric mitral regurgitation, mild tricuspid regurgitation, and mild to moderate aortic insufficiency. Mild pulmonic regurgitation was also noted. Allergies/Medications Allergies: Coded Allergies: Penicillins (RASH 12/16/16) acetaminophen (BURNING FEELING IN STOMACH 12/16/16) animal dander (PER 01/14/17) garlic (UNKNOWN, LISTED ON JAN W NO REACTION NOTED 02/19/17) latex (SORES 12/16/16) mold (UNKNOWN 12/16/16) onion (UNKNOWN - PER MAR NO REACTION NOTED 02/19/17) Sulfa (Sulfonamide Antibiotics) (GI 12/16/16) aspirin (MILD GI 12/16/16) diazepam (GI 12/16/16) oxycodone (GI, MIGRAINE 12/16/16) propoxyphene (GI 12/16/16) Uncoded Allergies: COLOGNE (PER PT UPSETS HER WITH THE SMELL 10/17/16) HAIR SPRAY (PER PT UPSETS HER WITH THE SMELL 10/17/16) SMOKE (PER PT CANT STAND SMELLS IT UPSETS HER 10/17/16) TOBACCO (PER 01/14/17) Home Med List: Bisacodyl 10 MG SUPP.RECT 1 SUP RC DAILY PRN CONSTIPATION (Reported) Cholecalciferol (Vitamin D3) (Vitamin D3) 5,000 UNIT TABLET 1 TAB PO DAILY SUPPLEMENT (Reported) Cyanocobalamin (Vitamin B-12) (Cyanocobalamin Injection) 1,000 MCG/1 ML VIAL 1 ML IM Q30D SUPPLEMENT (Reported) Reason to Stop at ADM: monthly Dicyclomine Hydrochloride (Bentyl) 10 MG CAPSULE 20 MG PO 4 TIMES/DAY stomach spasms Diltiazem HCl (Cardizem) 30 MG TABLET 30 MG PO BID heart Dronabinol (Marinol) 2.5 MG CAPSULE 1 CAP PO BID appetite (Reported) Estradiol (Climara) 0.0375 MG/24 HOUR PATCH.TDWK 1 PATCH TOP QWED HRT ( Reported) Reason to Stop at ADM: not needed in hospital Furosemide (Lasix) 20 MG TABLET 1 TAB PO DAILY diuresis Levothyroxine Sodium (Synthroid) 125 MCG TABLET 1 TAB PO QHS THYROID ( Reported) Librax (Librax Capsule) 5 MG-2.5 MG CAPSULE 1 CAP PO DAILY PRN ABD PAIN ( Reported) Magnesium Hydroxide (Milk Of Magnesia) 400 MG/5 ML ORAL.SUSP 30 ML PO DAILY PRN CONSTIPATION (Reported) NOT GIVEN IN HOSPITAL Metoprolol Tartrate 50 MG TABLET 50 MG PO BID A. fib Mirabegron (Myrbetriq) 25 MG TAB.ER.24H 1 TAB PO DAILY BLADDER (Reported) Multivitamin (Multiple Vitamins) 1 EACH TABLET 1 TAB PO DAILY SUPPLEMENT ( Reported) Na Phos,M-B/Na Phos,Di-Ba (Fleet Enema) 19 GRAM-7 GRAM/118 ML ENEMA 1 E RC DAILY PRN CONSTIPATION (Reported) Ondansetron (Zofran Odt) 4 MG TAB.RAPDIS 1 TAB SL Q8H PRN NAUSEA (Reported) Pantoprazole Sodium (Protonix) 40 MG TABLET.DR 1 TAB PO BID GI (Reported) Potassium Chloride (Klor-Con M20) 20 MEQ TAB.ER.PRT 1 TAB PO DAILY SUPPLEMENT (Reported) Prochlorperazine Maleate 10 MG TABLET 1 TAB PO Q6 PRN N/V (Reported) Rivaroxaban (Xarelto) 15 MG TABLET 1 TAB PO 1700 BLOOD THINNER (Reported) Simethicone 80 MG TAB.CHEW 1 TAB PO Q4 HRS NEEDED PRN GAS/INDIGESTION ( Reported) Tiotropium [place] (Spiriva) 18 MCG CAP.W.DEV 1 CAP INH DAILY BREATHING PROBLEMS (Reported) Tramadol HCl 50 MG TABLET 1 TAB PO Q4H PRN PAIN (Reported) Trazodone HCl 50 MG TABLET 25 MG PO BID PRN anxiety/agitation (Reported) Past History Travel History Traveled to [place] past 21 day No Medical History Blood Transfusion Hx: No Neurological: syncope EENT: submandibular masses Cardiovascular: AFIB, CAD (s/p stent), CHF, diastolic CHF, rheumatic fever Respiratory: asthma, COPD, obstructive sleep apnea Gastrointestinal: GERD, DIVERTICULOSIS Hepatic: NONE Renal: kidney stones Musculoskeletal: osteoarthritis, sciatica, chondrocalcinosis Psychiatric: report of suicide attempt as a young woman by son Endocrine: hypothyroidism Blood Disorders: PERNICIOUS ANEMIA B12 deficiency Cancer(s): non-hodgkin lymphoma, CHEMO INJECTION GIVEN ORTHOPAEDIC PHYSICIAN ASSISTANT/Reproductive: NONE Surgical History Surgical History: cholecystectomy, hernia repair-inguinal, hysterectomy (benign) , bladder surgery Rt. hip percutaneous pinning Family History Relations & Conditions If Any: MOTHER (hypertension, coronary artery disease and stroke). Relation not specified for: FH: coronary artery disease FH: hypertension FH: stroke Psychosocial History Where Do You Live? [facility] Facility Services at Home: Home Health Aide, Nursing Primary Language: Faroese Smoking Status: Never Smoked ETOH Use: denies use Living Will? no Power of Boat Painter/HCP? yes Name of POA/HCP: Pt's son, Juliocesar Saldana. Functional Ability ADLs Independent: dressing, eating, toileting, bathing. Ambulation: independent IADLs Independent: shopping, housework, finances, food prep, telephone, transportation , medication admin. Exam & Diagnostic Data Vital Signs and I&O Vital Signs Date Time Temp Pulse Resp B/P B/P Pulse O2 O2 Flow FiO2 Mean Ox Delivery Rate 03/01 1400 100 Nasal 4.0L Cannula 03/01 1335 97 Nasal 4.0L Cannula 03/01 1330 Nasal 4.0L Cannula 03/01 1327 86 100/60 03/01 1250 97.5 85 20 100/60 97 Nasal 4.0L Cannula 03/01 1221 86 98 03/01 1125 95.6 94 20 100/56 100 Room Air 3.0L 03/01 0932 86 98 03/01 0917 101 20 106/60 96 BIPAP 40% 03/01 0844 96 BIPAP 9L 03/01 0822 132 96 03/01 0816 96.8 88 32 143/78 86 CPAP 9L Intake & Output 03/01 1600 03/01 0800 03/01 0000 02/28 1600 02/28 0800 02/28 0000 Intake Total 530 Output Total 1600 Balance -1070 Intake, IV 130 Intake, Oral 400 Output, Urine 1600 Patient 147 lb Weight Weight Reported by Patient Measurement Method Physical Exam: General: WD/ WN female in NAD; alert and oriented x 3 HEENT: NC/AT, PERRL, EOMI, clear oropharynx Neck: no JVD, no carotid bruit Heart: irregularly irregular, no murmur Lungs: decreased breath sounds at the bases bilaterally Abdomen: soft, NT, +ve bowel sounds Extremties: 2+ right leg edema and large hematoma over incision Assessment/Plan Assessment/Plan * Hematoma: This patient has a reasonable size hematoma over her incision site. She is on Eliquis for both DVT prophylaxis and for her atrial fibrillation. The hematoma has likely tamponaded itself and should resolve on its own over time. Nevertheless, it is uncomfortable for the patient. It is reasonable to hold anticoagulation for 5 days to allow time for coagulation. The risk for a few days off anticoagulation is low. * CHF: Shayna Madrid has mild decompensatd CHF which has improved with diuresis. Continue Lasix 40gm IV BID. Consult Acknowledgment - Thank you for your consult request.
--- NOTE | 2017-03-01 22:04 | RADIOLOGY REPORT ---
EXAMINATION: XR HIP, RIGHT CLINICAL INFORMATION: Postop COMPARISON: 02/21/2017 TECHNIQUE: 3 views of the right hip. FINDINGS: Once again screw pins crossing fracture of the femoral neck. No significant change in fracture position from previous exam. No acute finding. IMPRESSION: No acute finding. No evidence of hardware failure. Screw pins bridge fracture of the femoral neck
[2017-03-01 23:58] VITALS: BP 114/58
[2017-03-02 06:00] LABS: ABSOLUTE BASOPHIL COUNT 0 /CUMM (0.0-0.2); ABSOLUTE EOSINOPHIL COUNT 0.4 /CUMM (0.0-0.7); ABSOLUTE GRANULOCYTE CT 4.6 /CUMM (1.4-6.5); ABSOLUTE LYMPH COUNT 1.2 /CUMM (1.2-3.4); ABSOLUTE MONOCYTE COUNT 0.8 /CUMM (0.10-0.60); BASOPHIL % 0.7 % (0.0-2.0); EOSINOPHIL % 5.4 % (0-5); GRANULOCYTE % 65.5 % (42.2-75.2); MEAN CORPUSCULAR HGB CONC 32.5 G/DL (33.0-37.0); MEAN CORPUSCULAR VOLUME 89.2 FL (81.0-99.0); MEAN PLATELET VOLUME 7.4 FL (7.4-10.4); PLATELET COUNT 305 /CUMM (130-400); RBC DISTRIBUTION WIDTH 16.9 % (11.5-14.5)
[2017-03-02 06:06] LABS: HEMATOCRIT 26.2 % (37-47); RED BLOOD CELL CT 2.94 /CUMM (4.20-5.40)
[2017-03-02 07:43] VITALS: BP 120/58
--- NOTE | 2017-03-02 08:07 | PN- Housestaff ---
See Addendum Subjective Follow-up For: Acute exacerbation of CHF Rt. hip hematoma, over ORIF site Pain Complaints: Pian over right hip Subjective: Patient seen and examined, sitting on the chair eating her breakfast, not in acute distress, report pain. No vernight events. Vitals stable Review of Systems Constitutional: Reports: no symptoms. EENTM: Reports: no symptoms. Cardiovascular: Reports: no symptoms. Respiratory: Reports: no symptoms. Gastrointestinal: Reports: no symptoms. Musculoskeletal: Reports: joint pain. Objective Last 24 Hrs of Vital Signs/I&O Vital Signs Date Time Temp Pulse Resp B/P B/P Pulse O2 O2 Flow FiO2 Mean Ox Delivery Rate 03/02 0807 97.5 71 16 120/58 03/02 0807 97.5 71 16 120/58 03/02 0743 97.5 71 16 12058 99 Nasal 3.5L Cannula 03/02 0023 79 99 03/02 0000 Nasal 3.5L Cannula 03/01 2358 98.1 80 20 114/58 98 Nasal Cannula 03/01 2228 89 116/56 03/01 2228 89 116/56 03/01 2219 98 Nasal 4.0L Cannula 03/01 1400 100 Nasal 4.0L Cannula 03/01 1335 97 Nasal 4.0L Cannula 03/01 1330 Nasal 4.0L Cannula 03/01 1327 86 100/60 03/01 1250 97.5 85 20 100/60 97 Nasal 4.0L Cannula 03/01 1221 86 98 03/01 1125 95.6 94 20 100/56 100 Room Air 3.0L 03/01 0932 86 98 03/01 0917 101 20 106/60 96 BIPAP 40% 03/01 0844 96 BIPAP 9L Intake & Output 03/02 1600 03/02 0800 03/02 0000 Intake Total 75 600 Output Total 600 750 Balance -525 -150 Intake, Oral 75 600 Number 1 Bowel Movements Output, Urine 600 750 Physical Exam General Appearance: Alert, Cooperative, No Acute Distress Skin: No Significant Lesion HEENT: PERRLA Cardiovascular: Normal S1, Normal S2 Lungs: Clear to Auscultation, Normal Air Movement Abdomen: Normal Bowel Sounds, Soft, No Tenderness Extremities: No Edema, Normal Pulses, Right hip hematoma, wound looks clean with no sign of inflammation Vascular: Normal Pulses, Pulses Symmetrical Current Medications: Current Medications Sig/Timi Start time Last Medication Dose Route Stop Time Status Admin Acetaminophen 1,000 MG ONCE ONE 03/01 1545 DC 03/01 N/A 1 UNIT IV 03/01 1559 1549 Acetaminophen 650 MG Q6P PRN 03/01 1100 AC PO Albuterol Sulfate 3 ML Q4P PRN 03/01 1400 AC INH Bisacodyl 10 MG DAILY NEEDED PRN 03/01 1100 AC IA Ceftriaxone Sodium 0 .STK-MED ONE 03/01 1043 DC .ROUTE Ceftriaxone Sodium 1,000 MG ONCE ONE 03/01 1030 DC 03/01 IV 03/01 1031 1052 Cholecalciferol 1,000 IU DAILY 03/02 1000 AC 03/02 PO 0808 Dicyclomine HCl 20 MG 4 TIMES/DAY 03/01 1400 AC PO Diltiazem HCl 30 MG BID 03/01 1049 AC 03/02 PO 0807 Furosemide 40 MG 0800 & 1700 03/01 1700 AC 03/02 IV 0806 Levothyroxine Sodium 0.125 MG DAILY AC 03/02 0700 AC 03/02 PO 0622 Magnesium Hydroxide 30 ML DAILY NEEDED PRN 03/01 1100 AC PO Metoprolol Tartrate 50 MG BID 03/01 2200 AC 03/02 PO 0807 Mirabegron 25 MG QPM 03/01 2200 AC 03/01 PO 2228 Multivitamins 1 TAB DAILY 03/02 1000 AC 03/02 Therapeutic PO 0808 Omeprazole 40 MG DAILY AC 03/02 0700 AC 03/02 PO 0623 Potassium Chloride 20 MEQ DAILY 03/02 1000 AC 03/02 PO 0807 Potassium Chloride 10 MEQ ONCE ONE 03/02 0815 DC IV 03/02 0816 Potassium Chloride 10 MEQ ONCE ONE 03/02 0730 DC IV 03/02 0731 Potassium Chloride 60 MEQ ONCE ONE 03/02 0730 DC PO 03/02 0731 Rivaroxaban 15 MG 1700 03/01 1700 AC 03/01 PO 1744 Simethicone 80 MG Q4 HRS NEEDED PRN 03/01 1100 AC PO Tiotropium [place] 1 PUF DAILY 03/02 1000 AC 03/02 INH 0807 Tramadol HCl 50 MG Q4H PRN 03/01 1100 AC 03/02 PO 0111 Trazodone HCl 25 MG BID PRN 03/01 1100 AC PO Last 24 Hrs of Lab/Bill Results Last 24 Hrs of Labs/Mics: Laboratory Tests 03/02/17 0545: Anion Gap 7, Estimated GFR > 60, BUN/Creatinine Ratio 13.8, CBC w Diff NO MAN DIFF REQ, RBC 2.94 L, MCV 89.2, MCH 29.0, RDW 16.9 H, MPV 7.4, Gran % 65.5, Lymphocytes % 17.0 L, Monocytes % 11.4 H, Eosinophils % 5.4 H, Basophils % 0.7, Absolute Granulocytes 4.6, Absolute Lymphocytes 1.2, Absolute Monocytes 0.8 H, Absolute Eosinophils 0.4, Absolute Basophils 0, PUBS MCHC 32.5 L 03/01/17 1630: Troponin I Cancelled 03/01/17 1620: Troponin I < 0.01 03/01/17921: Urine Color YEL, Urine Clarity HAZY H, Urine pH 6.5, Ur Specific [place] 1.010, Urine Protein NEG, Urine Ketones NEG, Urine Nitrite POS H, Urine Bilirubin NEG, Urine Urobilinogen 0.2, Ur Leukocyte Esterase LARGE H, Ur Microscopic SEDIMENT EXAMINED, Urine RBC 1-3, Urine WBC 25-50 H, Ur Epithelial Cells MOD H, Urine Bacteria MANY H, Hyaline Casts RARE H, Urine Hemoglobin TRACE-INTACT, Urine Glucose NEG Microbiology 03/01 922 URINE ROUT: Urine Culture - RECD 03/01 849 URINE ROUT: Urine Culture - CAN Cancelled: Cancelled via OE: DUPLICATE ORDER Assessment/Plan Assessment: is an 86 yo female with pmh of A.fib on xarelto, Hx of CAD, HFpEF ( EF 65%) with pulmonary HTN, 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 hip fracture s/p percutaneous pinning, BIBA from STR for SOB started today at am. admitted to telemetry floor for acute CHF exacerbation. #Acute CHF exacerbation: Patient seen by , the plan is to continue with IV Lasix BID. Strict I's&O's, daily weight. #Hpokalemia: K today is 2.9, repleted, will repeat BEP later in the afternoon. Will start k-dur 40Meq daily. #Rt. hip hematoma: Patient had ORIF percutaneous pinning about 10 days ago, she had a lump over the procedure site, a consult was placed with , she was evaluated yesterday by surgical PA, X-ray of the right hip was done which showed: No acute finding. No evidence of hardware failure. Screw pins bridge fracture of the femoral neck. Will monitor for any instability in the vitals, H& H daily, per surgical team no surgical indication for evacuation of hematoma, it will resolve on its own. Per cardiology will hold anticoagulation (Xarelto) to allow time for coagulation of hematoma. # A.fib on xarelto:On Xarelto which is on hold from today, will touch base with cardiology regarding holding anticoagulation. Metoprolol continued at 50mg BID per horseshoer yesterday. Need to monitor her heart rate and blood pressure closely. # Asthma/COPD: Her respiratory status is stable, she is now on 3.4L NC, O2 sat: 99% # hypothyroidism: c/w home dose levothyroxine 0.125mg daily. 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 She has patent Rt. port-a-cath. Stable. ALP is elevated likely from bone metasis. # Anemia: Her hemoglobin this morning is 8.5 and crit 26.2 yesterday it was 11.4/34.9. Will transfuse if <8 # Stage II decubitus ulcer: LEFT BUTTOCKS STAGE 2 PRESSURE INJURY 5X5 CM CLEAN PINK DRY FILL NON DRNG - RIGHT BUTTOCKS 4.3 X 5 CM STAGE 2 PRESSURE INJURY She needs to work with PT. DVT ppx:Alps, Xarelto DNR/I Pain pathway (Tramadol, tylenol) Problem List: 1. ATRIAL FIBRILATION 2. ARTHRITIS 3. CONGESTIVE HEART FAILURE 4. Hematoma of right hip 5. Anemia Pain Ratin Pain Location: right hip Pain Goal: Remain pain free Pain Plan: - Tomorrow's Labs & Rationales: cbc, bep DVT/Prophylaxis: pharmacological
--- NOTE | 2017-03-02 09:07 | PN- Att Addend ---
See Addendum Attending Addendum Attending Brief Note Patient appears comfortable, smiling and answering questions appropriately. She does complain of pain right hip. General Appearance: Alert, No Acute Distress Skin: Grossly normal HEENT: PEERLA Neck: Supple, No JVD Cardiovascular: Regular Rate, Normal S1, Normal S2, No Murmurs Lungs: Clear to Auscultation, Normal Air Movement Abdomen: Normal Bowel Sounds, Soft, No Tenderness Neurological: Normal Speech, Strength at 5/5 X4 Ext, Cranial Nerves 3-12 NL, Reflexes 2+ Extremities: Right upper hip suture clean with hematoma Vascular: Normal Pulses Assessment Improved breathing status on IV Lasix. She has diuresed about 2 L. There are no signs of infection and she will be followed off antibiotics. Right hip hematoma is small in size and as long as it remains stable we will be able to resume her full anticoagulation in 1-2 days. Plan Continue IV diuresis Hold full anticoagulation for 1-2 days Continue current pain meds Ambulate with physical therapy Continue other meds Anticipate discharge in a.m. Current Medications Sig/Timi Start time Last Medication Dose Route Stop Time Status Admin Acetaminophen 1,000 MG ONCE ONE 03/01 1545 DC 03/01 N/A 1 UNIT IV 03/01 1559 1549 Acetaminophen 650 MG Q6P PRN 03/01 1100 AC PO Albuterol Sulfate 3 ML Q4P PRN 03/01 1400 AC INH Bisacodyl 10 MG DAILY NEEDED PRN 03/01 1100 AC WI Ceftriaxone Sodium 0 .STK-MED ONE 03/01 1043 DC .ROUTE Ceftriaxone Sodium 1,000 MG ONCE ONE 03/01 1030 DC 03/01 IV 03/01 1031 1052 Cholecalciferol 1,000 IU DAILY 03/02 1000 AC 03/02 PO 0808 Dicyclomine HCl 20 MG 4 TIMES/DAY 03/01 1400 AC PO Diltiazem HCl 30 MG BID 03/01 1049 AC 03/02 PO 0807 Furosemide 40 MG 0800 & 1700 03/01 1700 AC 03/02 IV 0806 Levothyroxine Sodium 0.125 MG DAILY AC 03/02 0700 AC 03/02 PO 0622 Magnesium Hydroxide 30 ML DAILY NEEDED PRN 03/01 1100 AC PO Metoprolol Tartrate 50 MG BID 03/01 2200 AC 03/02 PO 08 Mirabegron 25 MG QPM 03/01 2200 AC 03/01 PO 2228 Multivitamins 1 TAB DAILY 03/02 1000 AC 03/02 Therapeutic PO 0808 Omeprazole 40 MG DAILY AC 03/02 0700 AC 03/02 PO 0623 Potassium Chloride 20 MEQ DAILY 03/02 1000 AC 03/02 PO 0807 Potassium Chloride 10 MEQ ONCE ONE 03/02 0815 DC IV 03/02 0816 Potassium Chloride 10 MEQ ONCE ONE 03/02 0730 DC IV 03/02 0731 Potassium Chloride 60 MEQ ONCE ONE 03/02 0730 DC PO 03/02 0731 Rivaroxaban 15 MG 1700 03/01 1700 DC 03/01 PO 1744 Simethicone 80 MG Q4 HRS NEEDED PRN 03/01 1100 AC PO Tiotropium [place] 1 PUF DAILY 03/02 1000 AC 03/02 INH 0807 Tramadol HCl 50 MG Q4H PRN 03/01 1100 AC 03/02 PO 0111 Trazodone HCl 25 MG BID PRN 03/01 1100 AC PO Laboratory Tests 03/02 03/01 03/01 0545 1630 1620 Chemistry Sodium (137 - 145 mmol/L) 136 L Potassium (3.5 - 5.1 mmol/L) 2.9 *L Chloride (98 - 107 mmol/L) 93 L Carbon Dioxide (22 - 30 mmol/L) 36 H Anion Gap (5 - 16) 7 BUN (7 - 17 mg/dL) 11 Creatinine (0.5 - 1.0 mg/dL) 0.8 Estimated GFR (>60 ml/min) > 60 BUN/Creatinine Ratio (7 - 25 %) 13.8 Troponin I (< 0.11 ng/ml) Cancelled < 0.01 Hematology CBC w Diff NO MAN DIFF REQ WBC (4.8 - 10.8 /CUMM) 7.0 RBC (4.20 - 5.40 /CUMM) 2.94 L Hgb (12.0 - 16.0 G/DL) 8.5 L Hct (37 - 47 %) 26.2 L MCV (81.0 - 99.0 FL) 89.2 MCH (27.0 - 31.0 PG) 29.0 RDW (11.5 - 14.5 %) 16.9 H Plt Count (130 - 400 /CUMM) 305 MPV (7.4 - 10.4 FL) 7.4 Gran % (42.2 - 75.2 %) 65.5 Lymphocytes % (20.5 - 51.1 %) 17.0 L Monocytes % (1.7 - 9.3 %) 11.4 H Eosinophils % (0 - 5 %) 5.4 H Basophils % (0.0 - 2.0 %) 0.7 Absolute Granulocytes (1.4 - 6.5 /CUMM) 4.6 Absolute Lymphocytes (1.2 - 3.4 /CUMM) 1.2 Absolute Monocytes (0.10 - 0.60 /CUMM) 0.8 H Absolute Eosinophils (0.0 - 0.7 /CUMM) 0.4 Absolute Basophils (0.0 - 0.2 /CUMM) 0 PUBS MCHC (33.0 - 37.0 G/DL) 32.5 L 03/01 0922 Urines Urine Color (YEL,AMB,STR) YEL Urine Clarity (CLEAR) HAZY H Urine pH (5.0 - 8.0) 6.5 Ur Specific [place] (1.001 - 1.035) 1.010 Urine Protein (NEG,<30 MG/DL) NEG Urine Ketones (NEG) NEG Urine Nitrite (NEG) POS H Urine Bilirubin (NEG) NEG Urine Urobilinogen (0.1 - 1.0 EU/dl) 0.2 Ur Leukocyte Esterase (NEG) LARGE H Ur Microscopic SEDIMENT EXAMINED Urine RBC (0 - 5 /HPF) 1-3 Urine WBC (0 - 2 /HPF) 25-50 H Ur Epithelial Cells (NONE,FEW) MOD H Urine Bacteria (NEG/NONE) MANY H Hyaline Casts (0/LPF) RARE H Urine Hemoglobin (NEG) TRACE-INTACT Urine Glucose (N MG/DL) NEG Vital Signs Date Time Temp Pulse Resp B/P B/P Pulse O2 O2 Flow FiO2 Mean Ox Delivery Rate 03/02 0807 97.5 71 16 120/03/02 0807 97.5 71 16 120/58 03/02 0743 97.5 71 16 120 99 Nasal 3.5L Cannula 03/02 0023 79 99 03/02 0000 Nasal 3.5L Cannula 03/01 2358 98.1 80 20 114/58 98 Nasal Cannula 03/018 89 116/56 03/018 89 116/56 03/01 2219 98 Nasal 4.0L Cannula 03/01 1400 100 Nasal 4.0L Cannula 03/01 1335 97 Nasal 4.0L Cannula 03/01 1330 Nasal 4.0L Cannula 03/01 1327 86 100/60 03/01 1250 97.5 85 20 100/60 97 Nasal 4.0L Cannula 03/01 1221 86 98 03/01 1125 95.6 94 20 100/56 100 Room Air 3.0L 03/01 0932 86 98 03/01 0917 101 20 106/60 96 BIPAP 40%
[2017-03-02 15:51] VITALS: BP 118/58
--- NOTE | 2017-03-02 17:23 | PN- Orthopedic ---
Surgical Brief Attending Note Brief Attending Note: Resting comfortably RLE - +EHL/FHL incision c/d/i subcutaneous hematoma present A/P - s/p right hip percutaneous pinning WBAT with PT No intervention necessary for hematoma If it worsens would hold anticoagulation for a longer period, but it appears stable at this time Will defer to medicine for resumption of anticoagulation Follow up for staple removal two weeks postop.
[2017-03-02 21:04] LABS: ABSOLUTE BASOPHIL COUNT 0 /CUMM (0.0-0.2); ABSOLUTE EOSINOPHIL COUNT 0.4 /CUMM (0.0-0.7); ABSOLUTE GRANULOCYTE CT 5.1 /CUMM (1.4-6.5); ABSOLUTE LYMPH COUNT 1.8 /CUMM (1.2-3.4); BASOPHIL % 0.5 % (0.0-2.0); EOSINOPHIL % 4.3 % (0-5); GRANULOCYTE % 61.2 % (42.2-75.2); HEMATOCRIT 27.3 % (37-47); MEAN CORPUSCULAR HGB 29.2 PG (27.0-31.0); MEAN CORPUSCULAR HGB CONC 32.8 G/DL (33.0-37.0); MEAN CORPUSCULAR VOLUME 89.1 FL (81.0-99.0); MEAN PLATELET VOLUME 7.8 FL (7.4-10.4); PLATELET COUNT 327 /CUMM (130-400); RBC DISTRIBUTION WIDTH 16.8 % (11.5-14.5); RED BLOOD CELL CT 3.06 /CUMM (4.20-5.40); WHITE BLOOD CELL COUNT 8.3 /CUMM (4.8-10.8)
--- NOTE | 2017-03-02 21:07 | PN- Cardiology ---
Subjective Subjective: * Breathing is improved compared to admission but patient did have a bout of shortness of breath today. Right leg discomfort is improved. * atrial fibrillation with controlled heart rate * potassium is 2.9 * decreased H/H Objective Vital Signs and I&Os Vital Signs Date Time Temp Pulse Resp B/P B/P Pulse O2 O2 Flow FiO2 Mean Ox Delivery Rate 03/02 1551 98.3 74 20 118/58 94 Nasal 1.0L Cannula 03/02 1154 97 Nasal 1.0L Cannula 03/02 0807 97.5 71 16 120/58 03/02 0807 97.5 71 16 120/58 03/02 0800 Nasal 3.5L Cannula 03/02 0743 97.5 71 16 120/58 99 Nasal 3.5L Cannula 03/02 0023 79 99 03/02 0000 Nasal 3.5L Cannula 03/01 2358 98.1 80 20 114/58 98 Nasal Cannula 03/01 2228 89 116/56 03/01 2228 89 116/56 03/01 2219 98 Nasal 4.0L Cannula Intake & Output 03/02 1600 03/02 0800 03/02 0000 03/01 1600 03/01 0800 03/01 0000 Intake Total 800 75 600 530 Output Total 1150 288 576 5357 Balance -350 -525 -150 -1070 Intake, IV 130 Intake, Oral 800 75 600 400 Number 1 Bowel Movements Output, Urine [phone] Patient 147 lb 147 lb Weight Weight Reported by Patient Measurement Method Physical Exam: General: WD/ WN female in NAD; alert and oriented x 3 Neck: no JVD, no carotid bruit Heart: irregularly irregular, no murmur Lungs: decreased breath sounds at the bases bilaterally Extremties: 2+ right leg edema and moderate size hematoma over incision Assessment/Plan Assessment/Plan * Hematoma: This patient has a resolving hematoma although her H/H appears to be decreasing. Continue to follow her H/H. She is on Eliquis for both DVT prophylaxis and for her atrial fibrillation. The hematoma has likely tamponaded itself and should resolve on its own over time. Restart Eliquis on Sunday. The risk for a few days off anticoagulation is low. * CHF: Shayna Madrid had mild decompensatd CHF which has improved with diuresis. Anemia is an additional likely contribution to her fatigue and shortness of breath. Change Lasix to 40mg PO BID. * Patient has a very low potassium that is exacerbated by diuretic use. Give 40 meq PO x two doses two hours apart then continue on KCL 40meq daily. Continue telemetry? Yes
--- NOTE | 2017-03-02 21:19 | Discharge Summary ---
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 hip fracture s/p percutaneous pinning, BIBA from [facility] for SOB started today at am. Patient discharged from at 02/28/2017 after being treated for RT. hip fracture. She discharged to [facility]. Unfortunately on the next day at [facility] she developed SOB, with dificullty speaking, she had increase work of bearth with the use of accessory muscle. She was initiated on Bipap by EMS and brought to ED for more evaluation. At ED she found at respiratory distress, CXR was done which showed pulmonary edema, PE was ruled out with CTA, she also have a reasonable size hematoma over her incision site, patient admitted to telemetry floor for CHF exacerbatin and to be evaluated by surgical team for hematoma at the procedure site. She is on Xarelto for both DVT prophylaxis and for her atrial fibrillation. An orthpedic service consult was placed, X-ray of the right hip was done which showed: No acute finding. No evidence of hardware failure. Screw pins bridge fracture of the femoral neck, per surgical team the hematoma has likely tamponaded itself and should resolve on its own over time. Per cardiology anticoagulation was held for 3 days to allow time for coagulation. The risk for a few days off anticoagulation is low. Shayna Madrid has mild decompensatd CHF which has improved with diuresis. We started her on Lasix 40gm IV BID which switch to PO Lasix next day. Patient had bilateral pleural effusion but as she was improving on IV Lasix we'll hold off thoracentesis in this admission and we will discharge patient to short-term rehabilitation. She will follow up with primary care physician and orthopedic surgery as outpatient. She had hypokalemia: K was 2.9 in the second day of admission which repleted and monitored during hospitalization. She was started on k-dur 40Meq daily. Complications: None Allergies: Coded Allergies: Penicillins (RASH 12/16/16) acetaminophen (BURNING FEELING IN STOMACH 12/16/16) animal dander (PER 01/14/17) latex (SORES 12/16/16) mold (UNKNOWN 12/16/16) Sulfa (Sulfonamide Antibiotics) (GI 12/16/16) aspirin (MILD GI 12/16/16) diazepam (GI 12/16/16) oxycodone (GI, MIGRAINE 12/16/16) propoxyphene (GI 12/16/16) Uncoded Allergies: COLOGNE (PER PT UPSETS HER WITH THE SMELL 10/17/16) HAIR SPRAY (PER PT UPSETS HER WITH THE SMELL 10/17/16) SMOKE (PER PT CANT STAND SMELLS IT UPSETS HER 10/17/16) TOBACCO (PER 01/14/17) Significant Procedures: SERVICE DATE: 03/06/17 EXAM TYPE: US - US-CHEST EXAMINATION: US PLEURAL EFFUSION CLINICAL INFORMATION: Pleural effusion. Assess volume. COMPARISON: Chest radiograph 03/05/2017 TECHNIQUE: ultrasound interrogation of the chest was performed bilaterally. FINDINGS: Moderate right and moderately large left pleural effusions. The lung is seen floating within the right pleural effusion. IMPRESSION: Moderately large left pleural effusion is amenable to ultrasound-guided thoracentesis. The moderately sized right pleural effusion is not amenable to ultrasound-guided thoracentesis at this time due to intervening lung tissue. Pertinent Lab Results: SERVICE DATE: 03/01/17- EXAM TYPE: RAD - XRY-HIP 2-3 VIEWS, RIGHT EXAMINATION: XR HIP, RIGHT CLINICAL INFORMATION: Postop COMPARISON: 02/21/2017 TECHNIQUE: 3 views of the right hip. FINDINGS: Once again screw pins crossing fracture of the femoral neck. No significant change in fracture position from previous exam. No acute finding. IMPRESSION: No acute finding. No evidence of hardware failure. Screw pins bridge fracture of the femoral neck Disposition Summary Disposition Principal Diagnosis: Acute exacerbation of CHF Rt. hip hematoma, over ORIF site Additional Diagnosis: # History of COPD # Hx of A. 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 # Transaminitis Discharge Disposition: SNF Discharge Instructions General Discharge Information Code Status: Do Not Resucitate/Intubat Patient's Diet: Heart healthy Patient's Activity: As tolerated Follow-Up Instructions/Appts: -Follow up with Orthopedic service in 1 week after discharge -Follow up with your wind energy mechanic in 1 week after discharge Medications at Discharge Discharge Medications: Stop taking the following medications: Potassium Chloride (Klor-Con M20) 20 MEQ TAB.ER.PRT ORAL DAILY Days = 30 Furosemide (Lasix) 20 MG TABLET ORAL DAILY Qty = 30 Continue taking these medications: Pantoprazole Sodium (Protonix) 40 MG TABLET.DR 1 Tablet ORAL TWICE DAILY Comments: NOT GIVEN TODAY Multivitamin (Multiple Vitamins) 1 EACH TABLET 1 Tablet ORAL DAILY Comments: Last Taken: 02/28 Time: 10AM Cyanocobalamin (Vitamin B-12) (Cyanocobalamin Injection) 1,000 MCG/1 ML VIAL 1 Milliliters INTRAMUSC ONCE A MONTH Qty = 1 Instructions: Reason to Stop at ADM: monthly Comments: NOT GIVEN IN THE HOSPITAL Mirabegron (Myrbetriq) 25 MG TAB.ER.24H 1 Tablet ORAL DAILY Qty = 30 Comments: NOT GIVEN IN THE HOSPITAL Cholecalciferol (Vitamin D3) (Vitamin D3) 5,000 UNIT TABLET 1 Tablet ORAL DAILY Comments: Last Taken: 02/28 Time: 10AM Rivaroxaban (Xarelto) 15 MG TABLET 1 Tablet ORAL 5 PM Qty = 90 Comments: Last Taken: 02/27 Time: 5PM Tiotropium [place] (Spiriva) 18 MCG CAP.W.DEV 1 Capsule Inhale through mouth DAILY Comments: Last Taken: 02/28 Time: 10AM Tramadol HCl (Tramadol HCl) 50 MG TABLET 1 Tablet ORAL Q4H as needed for PAIN Comments: NOT GIVEN WHILE IN HOSPITAL Estradiol (Climara) 0.0375 MG/24 HOUR PATCH.TDWK 1 PATCH On the skin EVERY SUNDAY Instructions: Reason to Stop at ADM: not needed in hospital Comments: NOT GIVEN AT HOSPITAL Prochlorperazine Maleate (Prochlorperazine Maleate) 10 MG TABLET 1 Tablet ORAL EVERY SIX HOURS as needed for N/V Comments: NOT GIVEN WHILE IN HOSPITAL Levothyroxine Sodium (Synthroid) 125 MCG TABLET 1 Tablet ORAL TAKE AT BEDTIME Comments: Last Taken: 02/28 Time: 7AM Diltiazem HCl (Cardizem) 30 MG TABLET 30 Milligram ORAL TWICE DAILY Days = 30 Comments: Last Taken: 02/28 Time: 10AM Dicyclomine Hydrochloride (Bentyl) 10 MG CAPSULE 20 Milligram ORAL 4 TIMES A DAY Days = 30 Comments: NOT GIVEN IN HOSPITAL Simethicone (Simethicone) 80 MG TAB.CHEW 1 Tablet ORAL EVERY 4 HOURS NEEDED as needed for GAS/INDIGESTION Comments: NOT GIVEN IN HOSPITAL Trazodone HCl (Trazodone HCl) 50 MG TABLET 25 Milligram ORAL TWICE DAILY as needed for anxiety/agitation Comments: NOT GIVEN IN HOSPITAL Librax (Librax Capsule) 5 MG-2.5 MG CAPSULE 1 Capsule ORAL DAILY as needed for ABD PAIN Comments: NOT GIVEN IN HOSPITAL Ondansetron (Zofran Odt) 4 MG TAB.RAPDIS 1 Tablet SUBLINGUAL Q8H as needed for NAUSEA Comments: NOT GIVEN IN HOSPITAL Magnesium Hydroxide (Milk Of Magnesia) 400 MG/5 ML ORAL.SUSP 30 Milliliters ORAL DAILY as needed for CONSTIPATION Instructions: NOT GIVEN IN HOSPITAL Na Phos,M-B/Na Phos,Di-Ba (Fleet Enema) 19 GRAM-7 GRAM/118 ML ENEMA 1 Enema RECTAL DAILY as needed for CONSTIPATION Comments: NOT GIVEN IN HOSPITAL Bisacodyl (Bisacodyl) 10 MG SUPP.RECT 1 Suppository RECTAL DAILY as needed for CONSTIPATION Comments: NOT GIVEN IN HOSPITAL Dronabinol (Marinol) 2.5 MG CAPSULE 1 Capsule ORAL TWICE DAILY Comments: NOT GIVEN IN HOSPITAL Metoprolol Tartrate (Metoprolol Tartrate) 50 MG TABLET 50 Milligram ORAL TWICE DAILY Qty = 30 Comments: Last Taken: 02/28 Time: 10AM Start taking the following new medications: Potassium Chloride (Klor-Con M20) 20 MEQ TAB.ER.PRT 40 Millequivalent ORAL DAILY Qty = 30 No Refills Furosemide (Lasix) 40 MG TABLET 40 Milligram ORAL 7:30AM & 4:30PM Qty = 30 No Refills Copies To: KEYA DIEZ MD
--- NOTE | 2017-03-02 21:22 | Patient Discharge Instructions ---
Discharge Instructions General Discharge Information You were seen/treated for: Heart failure Hematoma on Rt. Hip Special Instructions: -FOLLOW UP with your vice president of communications in 1 week after discharge -Follow up with your primary care physician -Follow up with orthopedic surgion in 1 week after discharge Diet Recommended Diet: Heart Healthy Activity Activity Self Limited: Yes Activity Limited to: Weight bear as tolerated Acute Coronary Syndrome Inclusion Criteria At DC or during hospital stay patient has or had the following: ACS DIAGNOSIS No Discharge Core Measures Meds if any: Prescribed or Continued at Discharge Meds if any: NOT Prescribed or Continued at Discharge Congestive Heart Failure Inclusion Criteria At DC or during hospital stay patient has or had the following: CHF DIAGNOSIS Yes Discharge Core Measures Meds if any: Prescribed or Continued at Discharge Meds if any: NOT Prescribed or Continued at Discharge Cerebrovascular accident Inclusion Criteria At DC or during hospital stay patient has or had the following: CVA/TIA Diagnosis No Discharge Core Measures Meds if any: Prescribed or Continued at Discharge Meds if any: NOT Prescribed or Continued at Discharge Venous thromboembolism Inclusion Criteria VTE Diagnosis No VTE Type NONE VTE Confirmed by (Test) NONE Discharge Core Measures - Per Current guidelines, there needs to be overlap - treatment for the first 5 days of Warfarin therapy. - If discharged on Warfarin prior to 5 days of - overlap therapy, the patient will need to be - assessed for post discharge needs including - *Post discharge parental anticoagulation - *Warfarin and/or parental anticoagulation education - *Follow up date to check INR post discharge At least 5 days overlap therapy as Inpatient No Meds if any: Prescribed or Continued at Discharge Note: Overlap Therapy is Warfarin and Anticoagulant Meds if any: NOT Prescribed or Continued at Discharge
[2017-03-03 00:20] VITALS: BP 150/50
--- NOTE | 2017-03-03 06:40 | PN- Housestaff ---
Subjective Follow-up For: Acute exacerbation of CHF Rt. hip hematoma, over ORIF site Pain Subjective: Patient seen and examined, she had difficulty breathing, she was seen overnight by respiratory therapiest and put in Bipap for 2 hours, her respiratory status improved afterward and Bipap discontinued put back on 1L NC. She developed chest pain over night, troponin and EKG was negative, chest pain resolved, she still has the pain on the right thigh. Review of Systems Constitutional: Reports: no symptoms. EENTM: Reports: no symptoms. Cardiovascular: Reports: no symptoms. Respiratory: Reports: no symptoms. Gastrointestinal: Reports: no symptoms. Musculoskeletal: Reports: joint pain. Objective Last 24 Hrs of Vital Signs/I&O Vital Signs Date Time Temp Pulse Resp B/P B/P Pulse O2 O2 Flow FiO2 Mean Ox Delivery Rate 03/03 0643 84 99 03/03 0554 57 98 03/03 0327 79 98 03/03 0020 98.3 78 20 150/50 96 Nasal 1.0L Cannula 03/03 0000 94 Nasal 3.5L Cannula 03/02 2122 78 118/62 03/02 2122 78 118/62 03/020 98 Nasal 1.0L Cannula 03/02 1551 98.3 74 20 118/58 94 Nasal 1.0L Cannula 03/02 1154 97 Nasal 1.0L Cannula 03/02 0807 97.5 71 16 120/58 03/02 0807 97.5 71 16 120/58 03/02 0800 Nasal 3.5L Cannula 03/02 0743 97.5 71 16 120/58 99 Nasal 3.5L Cannula Intake & Output 03/03 0800 03/03 0000 03/02 1600 Intake Total 200 300 800 Output Total 450 1100 1150 Balance -250 -800 -350 Intake, Oral 200 300 800 Output, Urine 450 1100 1150 Patient 140 lb 147 lb Weight Weight Shania Lift Measurement Method Physical Exam General Appearance: Alert, Cooperative, No Acute Distress Skin: No Rashes, No Breakdown, No Significant Lesion Cardiovascular: Normal S1, Normal S2 Lungs: Normal Air Movement, Bibasilar crackles Abdomen: Normal Bowel Sounds, Soft, No Tenderness Extremities: Normal Pulses, +1 edema Current Medications: Current Medications Sig/Timi Start time Last Medication Dose Route Stop Time Status Admin Acetaminophen 650 MG Q6P PRN 03/01 1100 AC PO Albuterol Sulfate 3 ML Q4P PRN 03/01 1400 AC INH Bisacodyl 10 MG DAILY NEEDED PRN 03/01 1100 AC LA Cholecalciferol 1,000 IU DAILY 03/02 1000 AC 03/02 PO 0808 Dicyclomine HCl 20 MG 4 TIMES/DAY 03/01 1400 AC 03/02 PO 2123 Diltiazem HCl 30 MG BID 03/01 1049 AC 03/02 PO 2122 Furosemide 40 MG 7:30 AM, & 4:30 PM 03/03 0730 AC PO Furosemide 40 MG 0800 & 1700 03/01 1700 DC 03/02 IV 1643 Levothyroxine Sodium 0.125 MG DAILY AC 03/02 0700 AC 03/02 PO 0622 Lidocaine 1 PAT DAILY 03/03 1000 AC EXT Magnesium Hydroxide 30 ML DAILY NEEDED PRN 03/01 1100 AC PO Metoprolol Tartrate 50 MG BID 03/01 2200 AC 03/02 PO 2122 Mirabegron 25 MG QPM 03/01 2200 AC 03/02 PO 2121 Multivitamins 1 TAB DAILY 03/02 1000 AC 03/02 Therapeutic PO 0808 Omeprazole 40 MG DAILY AC 03/02 0700 AC 03/03 PO 0649 Potassium Chloride 40 MEQ DAILY 03/03 1000 CAN PO Potassium Chloride 40 MEQ DAILY 03/03 1000 AC PO Potassium Chloride 40 MEQ ONCE ONE 03/020 DC 03/02 PO 03/02 2131 214 Potassium Chloride 20 MEQ DAILY 03/02 1000 DC 03/02 PO 03/03 0959 0807 Potassium Chloride 10 MEQ ONCE ONE 03/02 0815 DC 03/02 IV 03/02 0816 1114 Potassium Chloride 10 MEQ ONCE ONE 03/02 0730 DC 03/02 IV 03/02 0731 0949 Potassium Chloride 60 MEQ ONCE ONE 03/02 0730 DC 03/02 PO 03/02 0731 0949 Rivaroxaban 15 MG 1700 03/05 1700 AC PO Rivaroxaban 15 MG 1700 03/01 1700 DC 03/01 PO 1744 Simethicone 80 MG Q4 HRS NEEDED PRN 03/01 1100 AC PO Tiotropium [place] 1 PUF DAILY 03/02 1000 AC 03/02 INH 0807 Tramadol HCl 50 MG Q4H PRN 03/01 1100 AC 03/02 PO 0952 Trazodone HCl 25 MG BID PRN 03/01 1100 AC PO Last 24 Hrs of Lab/Bill Results Last 24 Hrs of Labs/Mics: Laboratory Tests 03/03/17 0700: Sodium Pending, Potassium Pending, Chloride Pending, Carbon Dioxide Pending, Anion Gap Pending, BUN Pending, Creatinine Pending, BUN/Creatinine Ratio Pending , CBC w Diff Pending, WBC Pending, RBC Pending, Hgb Pending, Hct Pending, MCV Pending, MCH Pending, RDW Pending, Plt Count Pending, MPV Pending, PUBS MCHC Pending 03/03/17 0335: Troponin I < 0.01 03/02/17 1920: Anion Gap 9, Estimated GFR > 60, BUN/Creatinine Ratio 11.4, CBC w Diff NO MAN DIFF REQ, RBC 3.06 L, MCV 89.1, MCH 29.2, RDW 16.8 H, MPV 7.8, Gran % 61.2, Lymphocytes % 21.5, Monocytes % 12.5 H, Eosinophils % 4.3, Basophils % 0.5, Absolute Granulocytes 5.1, Absolute Lymphocytes 1.8, Absolute Monocytes 1.0 H, Absolute Eosinophils 0.4, Absolute Basophils 0, PUBS MCHC 32.8 L Assessment/Plan Assessment: is an 86 yo female with pmh of A.fib on xarelto, Hx of CAD, HFpEF ( EF 65%) with pulmonary HTN, 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 hip fracture s/p percutaneous pinning, BIBA from [facility] for SOB started today at am. admitted to telemetry floor for acute CHF exacerbation. #Acute CHF exacerbation: Patient seen by , Switched to PO lasix, Strict I's&O's, daily weight. #Hpokalemia: K last night 3.4, repleted, BEP today is still pending. Will start k-dur 40Meq daily. #Rt. hip hematoma: Patient had ORIF percutaneous pinning about 10 days ago, she had a lump over the procedure site, a consult was placed with , she was evaluated yesterday by surgical PA, X-ray of the right hip was done which showed: No acute finding. No evidence of hardware failure. Screw pins bridge fracture of the femoral neck. Will monitor for any instability in the vitals, H& H daily, per surgical team no surgical indication for evacuation of hematoma, it will resolve on its own. Per cardiology will hold anticoagulation (Xarelto) for 3 days to allow time for coagulation of hematoma will resume Xarelto on Sunday # A.fib On Xarelto which is on hold from yesterday. Metoprolol continued at 50mg BID per environmental laboratory technician yesterday. Need to monitor her heart rate and blood pressure closely. # Asthma/COPD: Her respiratory status is stable, she is now on 1 L NC, O2 sat: 99% # hypothyroidism: c/w home dose levothyroxine 0.125mg daily. 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 She has patent Rt. port-a-cath. Stable. ALP is elevated likely from bone metasis. # Anemia: Her hemoglobin this morning is 8.5 and crit 26.2 yesterday it was 11.4/34.9. Will transfuse if <8 # Stage II decubitus ulcer: LEFT BUTTOCKS STAGE 2 PRESSURE INJURY 5X5 CM CLEAN PINK DRY FILL NON DRNG - RIGHT BUTTOCKS 4.3 X 5 CM STAGE 2 PRESSURE INJURY She needs to work with PT. DVT ppx:Alps, Xarelto DNR/I Pain pathway (Tramadol, tylenol) Problem List: 1. ATRIAL FIBRILATION 2. ARTHRITIS 3. CONGESTIVE HEART FAILURE 4. Hematoma of right hip 5. Anemia Pain Ratin Pain Location: right hip Pain Goal: Remain pain free Pain Plan: tramadol, tylenol Tomorrow's Labs & Rationales: cbc, bep DVT/Prophylaxis: pharmacological
[2017-03-03 07:58] VITALS: BP 144/52
[2017-03-03 08:20] LABS: ABSOLUTE BASOPHIL COUNT 0 /CUMM (0.0-0.2); ABSOLUTE EOSINOPHIL COUNT 0.4 /CUMM (0.0-0.7); ABSOLUTE GRANULOCYTE CT 4.8 /CUMM (1.4-6.5); ABSOLUTE LYMPH COUNT 2.3 /CUMM (1.2-3.4); BASOPHIL % 0.4 % (0.0-2.0); GRANULOCYTE % 56.6 % (42.2-75.2); HEMATOCRIT 27.7 % (37-47); MEAN CORPUSCULAR HGB CONC 32.8 G/DL (33.0-37.0); MEAN CORPUSCULAR VOLUME 88.2 FL (81.0-99.0); MEAN PLATELET VOLUME 7.8 FL (7.4-10.4); PLATELET COUNT 330 /CUMM (130-400); RBC DISTRIBUTION WIDTH 16.9 % (11.5-14.5); RED BLOOD CELL CT 3.14 /CUMM (4.20-5.40); WHITE BLOOD CELL COUNT 8.6 /CUMM (4.8-10.8)
--- NOTE | 2017-03-03 08:30 | PN- Att Addend ---
Attending Addendum Attending Brief Note Covering attending note. Patient is very anxious and complains of shortness of breath on oxygen. Desats on 1 L to 89% Intake & Output 03/03 1600 03/03 0800 03/03 0000 Intake Total 200 300 Output Total 450 1100 Balance -250 -800 Intake, Oral 200 300 Output, Urine 450 1100 Patient 140 lb Weight Weight Shania Lift Measurement Method Current Medications Sig/Timi Start time Last Medication Dose Route Stop Time Status Admin Acetaminophen 650 MG Q6P PRN 03/01 1100 AC PO Albuterol Sulfate 3 ML Q4P PRN 03/01 1400 AC INH Bisacodyl 10 MG DAILY NEEDED PRN 03/01 1100 AC OR Cholecalciferol 1,000 IU DAILY 03/02 1000 AC 03/02 PO 0808 Dicyclomine HCl 20 MG 4 TIMES/DAY 03/01 1400 AC 03/02 PO 2123 Diltiazem HCl 30 MG BID 03/01 1049 AC 03/02 PO 2122 Furosemide 40 MG 7:30 AM, & 4:30 PM 03/03 0730 AC PO Furosemide 40 MG 0800 & 1700 03/01 1700 DC 03/02 IV 1643 Levothyroxine Sodium 0.125 MG DAILY AC 03/02 0700 AC 03/02 PO 0622 Lidocaine 1 PAT DAILY 03/03 1000 AC EXT Magnesium Hydroxide 30 ML DAILY NEEDED PRN 03/01 1100 AC PO Metoprolol Tartrate 50 MG BID 03/01 2200 AC 03/02 PO 2122 Mirabegron 25 MG QPM 03/01 2200 AC 03/02 PO 2121 Multivitamins 1 TAB DAILY 03/02 1000 AC 03/02 Therapeutic PO 0808 Omeprazole 40 MG DAILY AC 03/02 0700 AC 03/03 PO 0649 Potassium Chloride 40 MEQ DAILY 03/03 1000 CAN PO Potassium Chloride 40 MEQ DAILY 03/03 1000 AC PO Potassium Chloride 40 MEQ ONCE ONE 03/020 DC 03/02 PO 03/02 2131 214 Potassium Chloride 20 MEQ DAILY 03/02 1000 DC 03/02 PO 03/03 0959 0807 Rivaroxaban 15 MG 1700 03/05 1700 AC PO Rivaroxaban 15 MG 1700 03/01 1700 DC 03/01 PO 1744 Simethicone 80 MG Q4 HRS NEEDED PRN 03/01 1100 AC PO Tiotropium [place] 1 PUF DAILY 03/02 1000 AC 03/02 INH 0807 Tramadol HCl 50 MG Q4H PRN 03/01 1100 AC 03/02 PO 0952 Trazodone HCl 25 MG BID PRN 03/01 1100 AC PO Vital Signs Date Time Temp Pulse Resp B/P B/P Pulse O2 O2 Flow FiO2 Mean Ox Delivery Rate 03/03 0758 98.1 78 18 144/52 94 Nasal 1.0L Cannula 03/03 0643 84 99 03/03 0554 57 98 03/03 0327 79 98 03/03 0020 98.3 78 20 150/50 96 Nasal 1.0L Cannula 03/03 0000 94 Nasal 3.5L Cannula 03/02 2122 78 118/62 03/02 2122 78 118/62 03/020 98 Nasal 1.0L Cannula 03/02 1551 98.3 74 20 118/58 94 Nasal 1.0L Cannula 03/02 1154 97 Nasal 1.0L Cannula Intake & Output 03/03 1600 03/03 0800 03/03 0000 Intake Total 200 300 Output Total 450 1100 Balance -250 -800 Intake, Oral 200 300 Output, Urine 450 1100 Patient 140 lb Weight Weight Shania Lift Measurement Method CTA CHEST IMPRESSION: 1. No evidence of pulmonary embolism. 2. There are increasing pleural effusions with bilateral lower lobe atelectasis versus infiltrate. 3. Cardiomegaly with fairly diffuse ground-glass opacities and interstitial prominence suggesting pulmonary edema. 4. Clinical correlation recommended On examination Patient is anxious tachepenic Conjunctivae is pale sclerae anicteric S1-S2 is normal Lungs shows diminished breath sounds both bases with bibasilar crackles. Abdomen is soft nontender bowel sounds are present Extremity shows bipedal edema 2+ to 3+. Tenderness present. Assessment #1 acute on chronic respiratory distress most likely secondary to pleural effusions bilaterally we'll obtain a chest x-ray today CHF: Shayna Madrid had mild decompensatd CHF which has improved with diuresis. Anemia is an additional likely contribution to her fatigue and shortness of breath. Change Lasix to 40mg IV twice a day. Check electrolytes. #2 Anemia secondary to hematoma on the leg. As a drop in her crit checked CVC today and possibly transfuse 1 unit of packed red blood cells today.
--- NOTE | 2017-03-03 09:43 | RADIOLOGY REPORT ---
EXAMINATION: XR PORTABLE CHEST CLINICAL INFORMATION: Follow-up on effusion. Still dyspneic. COMPARISON: 03/01/2017 TECHNIQUE: Portable semierect AP view of the chest was obtained. FINDINGS: Cardiac silhouette is enlarged. There is persistent pulmonary venous congestion and pulmonary edema. As compared to prior, the edema appears more pronounced, though this may be due in part to his incision technique. The moderate left-sided pleural effusion is unchanged. A small right-sided pleural effusion is also unchanged. Associated atelectasis and or consolidation are present at the lower lobes, left greater than right. Calcific atherosclerosis is present in the thoracic aorta. Right subclavian Port-A-Cath is unchanged. IMPRESSION: Worsening pulmonary edema. Findings are again consistent with CHF. Effusions appear unchanged.
--- NOTE | 2017-03-03 12:43 | NUR ---
Physical therapy: Approached RN prior to PT session. RN reports patient with episode of desating to 70's earlier requiring greater than 15 minutes to recover. Patient now on Bipap at 50%. WIll cancel PT for today and will follow up with patient as appropriate. Thank you.
[2017-03-03 16:37] VITALS: BP 102/60
[2017-03-03 22:00] VITALS: BP 118/64
[2017-03-04 02:16] VITALS: BP 100/50
[2017-03-04 08:07] VITALS: BP 110/78
--- NOTE | 2017-03-04 08:50 | PN- Att Addend ---
Attending Addendum Attending Brief Note Covering attending note. Patient feels a lot better since she was put on the BiPAP. She looks more awake alert. Current Medications Sig/Timi Start time Last Medication Dose Route Stop Time Status Admin Acetaminophen 650 MG Q6P PRN 03/01 1100 AC PO Albuterol Sulfate 3 ML Q4P PRN 03/01 1400 AC INH Bisacodyl 10 MG DAILY NEEDED PRN 03/01 1100 AC AL Cholecalciferol 1,000 IU DAILY 03/02 1000 AC 03/03 PO 1254 Dicyclomine HCl 20 MG 4 TIMES/DAY 03/01 1400 AC 03/03 PO 1631 Diltiazem HCl 30 MG BID 03/01 1049 AC 03/03 PO 205 Furosemide 40 MG ONCE ONE 03/03 1630 DC 03/03 IV 03/03 1631 1856 Furosemide 40 MG ONCE ONE 03/03 1615 CAN IV 03/03 1616 Furosemide 40 MG 7:30 AM, & 4:30 PM 03/03 0730 AC 03/03 PO 1632 Levothyroxine Sodium 0.125 MG DAILY AC 03/02 0700 AC 03/04 PO 0734 Lidocaine 1 PAT DAILY 03/03 1000 AC EXT Magnesium Hydroxide 30 ML DAILY NEEDED PRN 03/01 1100 AC PO Magnesium Oxide 400 MG ONE ONE 03/03 1345 DC 03/03 PO 03/03 1346 1631 Magnesium Sulfate 1 GM ONCE ONE 03/03 1345 DC 03/03 Dextrose/Water 100 ML IV 03/03 1744 1630 Metoprolol Tartrate 50 MG BID 03/01 2200 AC 03/03 PO 2050 Mirabegron 25 MG QPM 03/01 2200 AC 03/03 PO 205 Multivitamins 1 TAB DAILY 03/02 1000 AC 03/03 Therapeutic PO 1254 Omeprazole 40 MG DAILY AC 03/02 0700 AC 03/04 PO 0651 Potassium Chloride 40 MEQ ONCE ONE 03/03 1615 CAN PO 03/03 1616 Potassium Chloride 40 MEQ ONCE ONE 03/03 1345 DC 03/03 PO 03/03 1346 1630 Potassium Chloride 40 MEQ DAILY 03/03 1000 AC 03/03 PO 1253 Rivaroxaban 15 MG 1700 03/05 1700 AC PO Simethicone 80 MG Q4 HRS NEEDED PRN 03/01 1100 AC PO Sodium Chloride 1,000 ML Q13H 03/03 0830 DC IV Tiotropium [place] 1 PUF DAILY 03/02 1000 AC 03/02 INH 0807 Tramadol HCl 50 MG Q4H PRN 03/01 1100 AC 03/02 PO 0952 Trazodone HCl 25 MG BID PRN 03/01 1100 AC PO Vital Signs Date Time Temp Pulse Resp B/P B/P Pulse O2 O2 Flow FiO2 Mean Ox Delivery Rate 03/04 0807 97.8 72 16 110/78 99 Nasal 3.0L Cannula 03/04 0216 50 100/50 03/04 0100 68 98 03/04 0000 98 Nasal 3.0L Cannula 03/03 2200 98.2 68 20 118/64 98 Nasal 3.0L Cannula 03/03 2051 76 124/70 03/03 2051 74 124/70 03/03 1903 68 99 03/03 1705 97 Nasal 3.0L Cannula 03/03 1637 98.9 66 20 102/60 100 BIPAP 03/03 1620 58 98 03/03 1515 83 98 03/03 1253 88 144/52 03/03 1253 88 144/52 03/03 0925 88 95 Intake & Output 03/04 1600 03/04 0800 03/04 0000 Intake Total 400 400 Output Total 450 1450 Balance -50 -1050 Intake, Oral 400 400 Output, Urine 450 1450 Patient 136 lb Weight Weight Shania Lift Measurement Method On examination Patient's awake alert on oxygen. Neck is supple, conjunctivae is pale S1-S2 is normal Lungs shows diminished air entry bilaterally By basilar crackles Abdomen soft nontender bowel sounds are present Extremity shows bipedal edema. Labs Hemoglobin 9.1/hematocrit 27. Chest x-ray shows a acute pulmonary edema with the pleural effusions Plan Continue with the BiPAP Continue with IV Lasix twice a day 40 mg IV twice a day chest x-ray tomorrow continue with the BiPAP
[2017-03-04 16:02] VITALS: BP 100/60
[2017-03-05 00:08] VITALS: BP 102/50
--- NOTE | 2017-03-05 07:57 | PN- Housestaff ---
Subjective Follow-up For: Acute exacerbation of CHF Rt. hip hematoma, over ORIF site Pain Complaints: no complaints Subjective: Patient seen and examined, breathing improved, denies cough, fever, chills. She lost 3 Ib. She feels uncomfortable at the site of decubitus ulcer. Vitals stable Review of Systems Constitutional: Reports: no symptoms. EENTM: Reports: no symptoms. Cardiovascular: Reports: no symptoms. Respiratory: Reports: short of breath. Gastrointestinal: Reports: no symptoms. Genitourinary: Reports: no symptoms. Objective Last 24 Hrs of Vital Signs/I&O Vital Signs Date Time Temp Pulse Resp B/P B/P Pulse O2 O2 Flow FiO2 Mean Ox Delivery Rate 03/05 0008 98.0 83 20 102/50 96 03/05 0000 96 Nasal 3.0L Cannula 03/04 2234 97 Nasal 3.0L Cannula 03/04 2219 87 108/50 03/04 2219 87 108/50 03/04 1830 98 Nasal 2.0L Cannula 03/04 1602 99.5 76 16 100/60 98 Nasal 3.5L Cannula 03/04 1530 98 Nasal 3.0L Cannula 03/04 1210 72 110/78 03/04 1206 72 110/78 03/04 1203 94 Nasal 3.0L Cannula 03/04 0807 97.8 72 16 110/78 99 Nasal 3.0L Cannula 03/04 0800 97 Nasal 3.0L Cannula Intake & Output 03/05 0800 03/05 0000 03/04 1600 Intake Total 120 420 Output Total 400 200 Balance -280 420 -200 Intake, IV 20 Intake, Oral 120 400 Number 1 0 Bowel Movements Output, Urine 400 200 Patient 133 lb Weight Weight Shania Lift Measurement Method Physical Exam General Appearance: Alert, Cooperative, No Acute Distress Skin: No Rashes, No Breakdown, No Significant Lesion, Incisin site at rt. hip clean, hematoma at same size., Pressure ulcer on the coccyx region looks clean, start to heal Cardiovascular: Normal S1, Normal S2 Lungs: Clear to Auscultation, Normal Air Movement Abdomen: Soft, No Tenderness Current Medications: Current Medications Sig/Timi Start time Last Medication Dose Route Stop Time Status Admin Acetaminophen 650 MG Q6P PRN 03/01 1100 AC PO Albuterol Sulfate 3 ML Q4P PRN 03/01 1400 AC INH Bisacodyl 10 MG DAILY NEEDED PRN 03/01 1100 AC PA Cholecalciferol 1,000 IU DAILY 03/02 1000 AC 03/04 PO 1505 Dicyclomine HCl 20 MG 4 TIMES/DAY 03/01 1400 AC 03/04 PO 2215 Diltiazem HCl 30 MG BID 03/01 1049 AC 03/04 PO 2219 Furosemide 40 MG 7:30 AM, & 4:30 PM 03/03 0730 AC 03/04 PO 1504 Levothyroxine Sodium 0.125 MG DAILY AC 03/02 0700 AC 03/05 PO 0740 Lidocaine 1 PAT DAILY 03/03 1000 AC 03/04 EXT 1203 Magnesium Hydroxide 30 ML DAILY NEEDED PRN 03/01 1100 AC PO Metoprolol Tartrate 50 MG BID 03/01 2200 AC 03/04 PO 2219 Mirabegron 25 MG QPM 03/01 2200 AC 03/04 PO 2215 Multivitamins 1 TAB DAILY 03/02 1000 AC 03/04 Therapeutic PO 1505 Omeprazole 40 MG DAILY AC 03/02 0700 AC 03/05 PO 0603 Potassium Chloride 40 MEQ DAILY 03/03 1000 AC 03/04 PO 1505 Rivaroxaban 15 MG 1700 03/05 1700 AC PO Simethicone 80 MG Q4 HRS NEEDED PRN 03/01 1100 AC PO Tiotropium [place] 1 PUF DAILY 03/02 1000 AC 03/04 INH 1505 Tramadol HCl 50 MG Q4H PRN 03/01 1100 AC 03/02 PO 0952 Trazodone HCl 25 MG BID PRN 03/01 1100 AC PO Last 24 Hrs of Lab/Bill Results Last 24 Hrs of Labs/Mics: Laboratory Tests 03/05/17 0605: Sodium Pending, Potassium Pending, Chloride Pending, Carbon Dioxide Pending, Anion Gap Pending, BUN Pending, Creatinine Pending, BUN/Creatinine Ratio Pending , Magnesium Pending Assessment/Plan Assessment: is an 86 yo female with pmh of A.fib on xarelto, Hx of CAD, HFpEF ( EF 65%) with pulmonary HTN, 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 hip fracture s/p percutaneous pinning, BIBA from STR for SOB started today at am. admitted to telemetry floor for acute CHF exacerbation. #Acute CHF exacerbation: Patient seen by , Switched to PO lasix, Strict I's&O's, daily weight. #Hpokalemia: K today pending will f/u and replet as needed. On k-dur 40Meq daily. #Rt. hip hematoma: X-ray of the right hip was done on admission which showed: No acute finding. No evidence of hardware failure. Screw pins bridge fracture of the femoral neck. Will monitor for any instability in the vitals, H&H daily, per surgical team no surgical indication for evacuation of hematoma, it will resolve on its own. (Xarelto) to be resumed today. # A.fib On Xarelto: Will resume anticoagulation today. Metoprolol continued at 50mg BID per fixed income director yesterday. Need to monitor her heart rate and blood pressure closely. # Asthma/COPD: Her respiratory status is stable, she is now on 1 L NC, O2 sat: 99% # hypothyroidism: c/w home dose levothyroxine 0.125mg daily. 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 She has patent Rt. port-a-cath. Stable. ALP is elevated likely from bone metasis. # Anemia: Her hemoglobin this morning is pending will f/u. Will transfuse if <8 # Stage II decubitus ulcer: LEFT BUTTOCKS STAGE 2 PRESSURE INJURY 5X5 CM CLEAN PINK DRY FILL NON DRNG - RIGHT BUTTOCKS 4.3 X 5 CM STAGE 2 PRESSURE INJURY . Ulcer today looks clean, started to heal She needs to work with PT. DVT ppx:Alps, Xarelto DNR/I Pain pathway (Tramadol, tylenol) Problem List: 1. ATRIAL FIBRILATION 2. ARTHRITIS 3. Hematoma of right hip 4. Anemia 5. Congestive heart failure 6. Hx of fracture of right hip Pain Ratin Pain Location: - Pain Goal: Remain pain free Pain Plan: Tramadol, Tylenol Tomorrow's Labs & Rationales: - DVT/Prophylaxis: pharmacological
[2017-03-05 08:00] VITALS: BP 108/54
--- NOTE | 2017-03-05 08:57 | PN- Att Addend ---
Attending Addendum Attending Brief Note Patient complaints of difficulty with breathing and she is on 3 L of oxygen. General Appearance: Alert, No Acute Distress Skin: Grossly normal HEENT: PEERLA Neck: Supple, No JVD Cardiovascular: Regular Rate, Normal S1, Normal S2, No Murmurs Lungs: Decreased air entry all mohan Abdomen: Normal Bowel Sounds, Soft, No Tenderness Neurological: Normal Speech, Strength at 5/5 X4 Ext, Cranial Nerves 3-12 NL, Reflexes 2+ Extremities: Right upper hip suture clean with hematoma Vascular: Normal Pulses Assessment She is requiring 3 L of oxygen and x-ray 2 days back suggested acute edema. We will repeat a chest x-ray today and if there is persistent fluid we will continue to IV diuresis. Plan Repeat chest x-ray Changed to IV Lasix 40 mg twice a day if x-ray suggests pulmonary edema Incentive spirometry Continue xarelto Continue current pain meds Ambulate with physical therapy Continue other meds Current Medications Sig/Timi Start time Last Medication Dose Route Stop Time Status Admin Acetaminophen 650 MG Q6P PRN 03/01 1100 AC PO Albuterol Sulfate 3 ML Q4P PRN 03/01 1400 AC INH Bisacodyl 10 MG DAILY NEEDED PRN 03/01 1100 AC [place] Cholecalciferol 1,000 IU DAILY 03/02 1000 AC 03/04 PO 1505 Dicyclomine HCl 20 MG 4 TIMES/DAY 03/01 1400 AC 03/04 PO 2215 Diltiazem HCl 30 MG BID 03/01 1049 AC 03/04 PO 2219 Furosemide 40 MG 7:30 AM, & 4:30 PM 03/03 0730 AC 03/04 PO 1504 Levothyroxine Sodium 0.125 MG DAILY AC 03/02 0700 AC 03/05 PO 0740 Lidocaine 1 PAT DAILY 03/03 1000 AC 03/04 EXT 1203 Magnesium Hydroxide 30 ML DAILY NEEDED PRN 03/01 1100 AC PO Metoprolol Tartrate 50 MG BID 03/01 2200 AC 03/04 PO 2219 Mirabegron 25 MG QPM 03/01 2200 AC 03/04 PO 2215 Multivitamins 1 TAB DAILY 03/02 1000 AC 03/04 Therapeutic PO 1505 Omeprazole 40 MG DAILY AC 03/02 0700 AC 03/05 PO 0603 Potassium Chloride 40 MEQ DAILY 03/03 1000 AC 03/04 PO 1505 Rivaroxaban 15 MG 1700 03/05 1700 AC PO Simethicone 80 MG Q4 HRS NEEDED PRN 03/01 1100 AC PO Tiotropium [place] 1 PUF DAILY 03/02 1000 AC 03/04 INH 1505 Tramadol HCl 50 MG Q4H PRN 03/01 1100 AC 03/02 PO 0952 Trazodone HCl 25 MG BID PRN 03/01 1100 AC PO Laboratory Tests 03/05 0605 Chemistry Sodium (137 - 145 mmol/L) 136 L Potassium (3.5 - 5.1 mmol/L) 3.8 Chloride (98 - 107 mmol/L) 91 L Carbon Dioxide (22 - 30 mmol/L) 40 H Anion Gap (5 - 16) 5 BUN (7 - 17 mg/dL) 9 Creatinine (0.5 - 1.0 mg/dL) 0.8 Estimated GFR (>60 ml/min) > 60 BUN/Creatinine Ratio (7 - 25 %) 11.3 Magnesium (1.6 - 2.3 mg/dL) 1.9 Vital Signs Date Time Temp Pulse Resp B/P B/P Pulse O2 O2 Flow FiO2 Mean Ox Delivery Rate 03/05 0837 99 Nasal 3.0L Cannula 03/05 0800 Nasal 3.0L Cannula 03/05 0008 98.0 83 20 102/50 96 03/05 0000 96 Nasal 3.0L Cannula 03/04 2234 97 Nasal 3.0L Cannula 03/04 2219 87 108/50 03/04 2219 87 108/50 03/04 1830 98 Nasal 2.0L Cannula 03/04 1602 99.5 76 16 100/60 98 Nasal 3.5L Cannula 03/04 1530 98 Nasal 3.0L Cannula 03/04 1210 72 110/78 03/04 1206 72 110/78 03/04 1203 94 Nasal 3.0L Cannula
--- NOTE | 2017-03-05 09:57 | RADIOLOGY REPORT ---
EXAMINATION: XR CHEST, 2 VIEWS CLINICAL INFORMATION: Shortness of breath, getting better. On BiPAP. Follow-up for effusion. COMPARISON: 03/03/2017 TECHNIQUE: AP and lateral views of the chest were obtained. FINDINGS: Right subclavian Port-A-Cath terminates at the cavoatrial junction. Cardiac silhouette remains enlarged. Patient is rotated to the left. Calcific atherosclerosis is present within the tortuous thoracic aorta. Calcifications are present at the mitral annulus. Moderate bilateral pleural effusions are again noted. Apparent increase in size in the right effusion is seen on the AP view may be due to differences in technique. There is associated lower lobe atelectasis. There is mild residual interstitial edema, improved from prior. Bones are osteopenic. Degenerative disc disease present in the thoracic spine. IMPRESSION: Cardiomegaly with mild interstitial edema and bilateral pleural effusions. Interstitial edema, consistent with CHF. Interstitial edema is improved as compared to prior.
[2017-03-05 10:31] LABS: ABSOLUTE BASOPHIL COUNT 0 /CUMM (0.0-0.2); ABSOLUTE EOSINOPHIL COUNT 0.3 /CUMM (0.0-0.7); ABSOLUTE GRANULOCYTE CT 5.5 /CUMM (1.4-6.5); ABSOLUTE LYMPH COUNT 1.2 /CUMM (1.2-3.4); ABSOLUTE MONOCYTE COUNT 0.7 /CUMM (0.10-0.60); BASOPHIL % 0.3 % (0.0-2.0); GRANULOCYTE % 71.3 % (42.2-75.2); HEMATOCRIT 26.1 % (37-47); MEAN CORPUSCULAR HGB 29.2 PG (27.0-31.0); MEAN CORPUSCULAR VOLUME 88.5 FL (81.0-99.0); MEAN PLATELET VOLUME 7.9 FL (7.4-10.4); PLATELET COUNT 323 /CUMM (130-400); RBC DISTRIBUTION WIDTH 16.9 % (11.5-14.5); RED BLOOD CELL CT 2.95 /CUMM (4.20-5.40); WHITE BLOOD CELL COUNT 7.7 /CUMM (4.8-10.8)
--- NOTE | 2017-03-05 10:56 | NUR ---
PT REFUSING PT TODAY DESPITE MULTIPLE ATTEMPTS, FREQ DECREASED TO 2-3 X WEEK
--- NOTE | 2017-03-05 11:06 | NUR ---
OCCUPATIONAL THERAPY NOTE: OT CONSULT RECEIVED AND CHART REVIEWED. ATTEMPTED TO SEE PT IN AM, PT REFUSING, STATING SHE JUST RETURNED FROM X-RAY AND MOVED A LOT IN X-RAY, IS TIRED AND WOULD LIKE TO REST. OT WILL F/U TOMORROW IF APPROPRIATE. THANK YOU.
--- NOTE | 2017-03-05 14:38 | NUR ---
wound care: unable to reassess pt at this time as family visiting at bedside
[2017-03-05 16:24] VITALS: BP 108/57
--- NOTE | 2017-03-05 19:38 | PN- Cardiology ---
Subjective Subjective: * Patient continues to have some right thigh soreness but it is improving. No current shortness of breath on supplemental oxygen. * atrial fibrillation with controlled heart rate. * stable anemia * moderate bilateral pleural effusions Objective Vital Signs and I&Os Vital Signs Date Time Temp Pulse Resp B/P B/P Pulse O2 O2 Flow FiO2 Mean Ox Delivery Rate 03/05 1710 94 Nasal 3.0L Cannula 03/05 1624 98.9 72 20 108/57 96 Nasal 3.0L Cannula 03/05 1010 63 108/54 03/05 1009 63 108/54 03/05 0837 99 Nasal 3.0L Cannula 03/05 0800 Nasal 3.0L Cannula 03/05 0800 98.6 63 20 108/54 100 Nasal 3.5L Cannula 03/05 0008 98.0 83 20 102/50 96 03/05 0000 96 Nasal 3.0L Cannula 03/04 2234 97 Nasal 3.0L Cannula 03/04 2219 87 108/50 03/04 2219 87 108/50 Intake & Output 03/05 1600 03/05 0800 03/05 0000 03/04 1600 03/04 0800 03/04 0000 Intake Total 480 120 420 400 400 Output Total 400 125 289 7764 Balance 480 -280 420 - Intake, IV 20 Intake, Oral 480 120 400 400 400 Number 2 1 0 Bowel Movements Output, Urine 400 132 394 6110 Patient 133 lb 136 lb Weight Weight Shania Lift Shania Lift Measurement Method Physical Exam: General: WD/ WN female in NAD; alert and oriented x 3 Neck: no JVD, no carotid bruit Heart: irregularly irregular, no murmur Lungs: decreased breath sounds at the bases bilaterally Extremties: no leg edema and small size hematoma over incision Assessment/Plan Assessment/Plan * Hematoma: This patient has a resolving hematoma. Would restart Xarelto after a thoracentesis. * CHF: Shayna Madrid had mild decompensatd CHF which has improved with diuresis. She has less pulmonary vascular congestion but has bilateral pleural effusion which are likely causing the oxygen dependence that she has. I would pursue a therapeutic thoracentisis to improve the patient's breathing. Hold Xarelto in anticipation of this procedure. Change Lasix to 40mg PO BID. * Patient has a low potassium that is exacerbated by diuretic use. Continue potassium supplementation. Continue telemetry? Yes
[2017-03-05 22:15] VITALS: BP 92/46
[2017-03-06 00:08] VITALS: BP 92/44
--- NOTE | 2017-03-06 07:49 | PN- Housestaff ---
Subjective Follow-up For: CHF exacerbation B/L pleural effusion Subjective: Patient seen and examined, breathing improved, she is still in 3 L NC. Other vitals stable Review of Systems Constitutional: Reports: no symptoms. EENTM: Reports: no symptoms. Cardiovascular: Reports: no symptoms. Respiratory: Reports: no symptoms. Gastrointestinal: Reports: no symptoms. Musculoskeletal: Reports: joint pain. Objective Last 24 Hrs of Vital Signs/I&O Vital Signs Date Time Temp Pulse Resp B/P B/P Pulse O2 O2 Flow FiO2 Mean Ox Delivery Rate 03/06 0237 77 03/06 0008 9244 03/06 0000 98 Nasal 3.0L Cannula 03/05 2215 97.8 67 22 92/46 98 Nasal 3.0L Cannula 03/05 2206 76 9246 03/05 2206 76 92/76 03/05 1710 94 Nasal 3.0L Cannula 03/05 1624 98.9 72 20 108/57 96 Nasal 3.0L Cannula 03/05 1010 63 108/54 03/05 1009 63 108/54 03/05 0837 99 Nasal 3.0L Cannula 03/05 0800 Nasal 3.0L Cannula 03/05 0800 98.6 63 20 108/54 100 Nasal 3.5L Cannula Intake & Output 03/06 0800 03/06 0000 03/05 1600 Intake Total 100 240 480 Output Total 450 200 Balance -350 40 480 Intake, Oral 100 240 480 Number 2 Bowel Movements Output, Urine 450 200 Physical Exam General Appearance: Alert, Cooperative, No Acute Distress Skin: No Rashes, No Breakdown, No Significant Lesion, Hematoma in the right side stable, wound clean HEENT: Atraumatic, PERRLA, EOMI, Mucous Membr. moist/pink Neck: Supple, No JVD Cardiovascular: Normal S1, Normal S2 Lungs: Clear to Auscultation, Normal Air Movement Abdomen: Normal Bowel Sounds, Soft, No Tenderness Extremities: +1 edema Vascular: Normal Pulses, Pulses Symmetrical Current Medications: Current Medications Sig/Timi Start time Last Medication Dose Route Stop Time Status Admin Acetaminophen 650 MG Q6P PRN 03/01 1100 AC PO Albuterol Sulfate 3 ML Q4P PRN 03/01 1400 AC INH Bisacodyl 10 MG DAILY NEEDED PRN 03/01 1100 AC [place] Cholecalciferol 1,000 IU DAILY 03/02 1000 AC 03/05 PO 1010 Dicyclomine HCl 20 MG 4 TIMES/DAY 03/01 1400 AC 03/05 PO 1703 Diltiazem HCl 30 MG BID 03/01 1049 AC 03/05 PO 2206 Furosemide 40 MG 7:30 AM, & 4:30 PM 03/07 0730 AC PO Furosemide 40 MG ONCE ONE 03/06 1700 AC IV 03/06 1701 Furosemide 40 MG 7:30 AM, & 4:30 PM 03/03 0730 DC 03/06 PO 0852 Levothyroxine Sodium 0.125 MG DAILY AC 03/02 0700 AC 03/06 PO 0851 Lidocaine 1 PAT DAILY 03/03 1000 AC 03/05 EXT 1010 Magnesium Chloride 64 MG BID 03/06 1000 AC PO Magnesium Hydroxide 30 ML DAILY NEEDED PRN 03/01 1100 AC PO Metoprolol Tartrate 50 MG BID 03/01 2200 AC 03/05 PO 1010 Mirabegron 25 MG QPM 03/01 2200 AC 03/05 PO 2206 Multivitamins 1 TAB DAILY 03/02 1000 AC 03/05 Therapeutic PO 1010 Omeprazole 40 MG DAILY AC 03/02 0700 AC 03/06 PO 0730 Potassium Chloride 40 MEQ ONCE ONE 03/06 0930 DC PO 03/06 0931 Potassium Chloride 10 MEQ Q1H 03/06 0915 DC IV 03/06 1016 Potassium Chloride 40 MEQ DAILY 03/03 1000 AC 03/05 PO 1010 Rivaroxaban 15 MG 1700 03/06 1700 AC PO Rivaroxaban 15 MG 1700 03/05 1700 DC 03/05 PO 1703 Simethicone 80 MG Q4 HRS NEEDED PRN 03/01 1100 AC PO Tiotropium [place] 1 PUF DAILY 03/02 1000 AC 03/05 INH 1010 Tramadol HCl 50 MG Q4H PRN 03/01 1100 AC 03/06 PO 0730 Trazodone HCl 25 MG BID PRN 03/01 1100 AC PO Last 24 Hrs of Lab/Bill Results Last 24 Hrs of Labs/Mics: Laboratory Tests 03/06/17 0700: Anion Gap 5, Estimated GFR > 60, BUN/Creatinine Ratio 12.5, Phosphorus 4.3, Magnesium 1.8, CBC w Diff NO MAN DIFF REQ, RBC 3.09 L, MCV 89.2, MCH 28.6, RDW 17.1 H, MPV 7.9, Gran % 59.0, Lymphocytes % 21.1, Monocytes % 12.4 H, Eosinophils % 7.0 H, Basophils % 0.5, Absolute Granulocytes 4.1, Absolute Lymphocytes 1.5, Absolute Monocytes 0.9 H, Absolute Eosinophils 0.5, Absolute Basophils 0, PUBS MCHC 32.1 L Assessment/Plan Assessment: is an 86 yo female with pmh of A.fib on xarelto, Hx of CAD, HFpEF ( EF 65%) with pulmonary HTN, 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 hip fracture s/p percutaneous pinning, BIBA from STR for SOB started today at am. admitted to telemetry floor for acute CHF exacerbation. #Acute CHF exacerbation: Will give 1 dose of IV lasix at pm. Tomorrow will resume 40mg BID of Lasix # B/l moderate pleural effusion: case was discussed with IR, for now will do diagnostic US to evaluate pleural fluid and to assess if enough to be taped. Case also disucussed with attending, as she had CXR on admission and yesterday which shows improvement of pulmonary edema and pleural fluid, her respiratory status is also improved and she lost weight, diuresed well, will hold on thoracentesis for now. Will contniue diuresis, O2 to be taper as tolerated, Will check CXR at am, if remains stable she will be discharge tomorrow to STR. Based on above thoracentesis order, pt/ ptt discontinued and Xarelto contniued. #Hpokalemia: K today is 3.5 repleted. On k-dur 40Meq daily. #Rt. hip hematoma: Stable in size, H&H stable. (Xarelto) started yesterday # A.fib On Xarelto: anticoagulation started yesterday. Metoprolol continued at 50mg BID per pipe fitter soft copper yesterday. Need to monitor her heart rate and blood pressure closely. # Asthma/COPD: Her respiratory status is stable, she is now on 1 L NC, O2 sat: 99% # hypothyroidism: c/w home dose levothyroxine 0.125mg daily. 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 She has patent Rt. port-a-cath. Stable. ALP is elevated likely from bone metasis. # Anemia: Her hemoglobin this morning is stable. Will transfuse if <8 # Stage II decubitus ulcer present on admission: LEFT BUTTOCKS STAGE 2 PRESSURE INJURY 5X5 CM CLEAN PINK DRY FILL NON DRNG - RIGHT BUTTOCKS 4.3 X 5 CM STAGE 2 PRESSURE INJURY . Ulcer today looks clean, started to heal She needs to work with PT. DVT ppx:Alps, Xarelto DNR/I Pain pathway (Tramadol, tylenol) Problem List: 1. ATRIAL FIBRILATION 2. ARTHRITIS 3. Hx of fracture of right hip 4. Hematoma of right hip 5. Anemia 6. Congestive heart failure Pain Ratin Pain Location: rt. hip Pain Goal: Remain pain free Pain Plan: Tramadol, tylenol Tomorrow's Labs & Rationales: cbc, bep DVT/Prophylaxis: pharmacological
[2017-03-06 08:33] LABS: ABSOLUTE BASOPHIL COUNT 0 /CUMM (0.0-0.2); ABSOLUTE EOSINOPHIL COUNT 0.5 /CUMM (0.0-0.7); ABSOLUTE GRANULOCYTE CT 4.1 /CUMM (1.4-6.5); ABSOLUTE LYMPH COUNT 1.5 /CUMM (1.2-3.4); ABSOLUTE MONOCYTE COUNT 0.9 /CUMM (0.10-0.60); BASOPHIL % 0.5 % (0.0-2.0); HEMATOCRIT 27.6 % (37-47); MEAN CORPUSCULAR HGB 28.6 PG (27.0-31.0); MEAN CORPUSCULAR HGB CONC 32.1 G/DL (33.0-37.0); MEAN CORPUSCULAR VOLUME 89.2 FL (81.0-99.0); MEAN PLATELET VOLUME 7.9 FL (7.4-10.4); PLATELET COUNT 325 /CUMM (130-400); RBC DISTRIBUTION WIDTH 17.1 % (11.5-14.5); RED BLOOD CELL CT 3.09 /CUMM (4.20-5.40)
[2017-03-06 08:54] VITALS: BP 116/52
--- NOTE | 2017-03-06 09:22 | PN- Att Addend ---
Attending Addendum Attending Brief Note Patient is on 3 L of oxygen. Complains of right hip pain. General Appearance: Alert, No Acute Distress Skin: Grossly normal HEENT: PEERLA Neck: Supple, No JVD Cardiovascular: Regular Rate, Normal S1, Normal S2, No Murmurs Lungs: Decreased air entry all mohan Abdomen: Normal Bowel Sounds, Soft, No Tenderness Neurological: Normal Speech, Strength at 5/5 X4 Ext, Cranial Nerves 3-12 NL, Reflexes 2+ Extremities: Right upper hip suture clean with hematoma Vascular: Normal Pulses Assessment She is requiring 3 L of oxygen however x-ray from yesterday showed improved interstitial edema. She does have bilateral pleural effusion about moderate in size. Based on our x-ray during her last admission she had small bilateral pleural effusion. There is no indication for thoracentesis at this time. We will IV diuresis for 1 more day and taper oxygen as tolerated. Plan Lasix IV 40 mg twice a day Hold thoracentesis Taper oxygen for saturation above 92% Incentive spirometry Continue xarelto Continue current pain meds Ambulate with physical therapy Continue other meds Anticipate discharge in a.m. Current Medications Sig/Timi Start time Last Medication Dose Route Stop Time Status Admin Acetaminophen 650 MG Q6P PRN 03/01 1100 AC PO Albuterol Sulfate 3 ML Q4P PRN 03/01 1400 AC INH Bisacodyl 10 MG DAILY NEEDED PRN 03/01 1100 AC [place] Cholecalciferol 1,000 IU DAILY 03/02 1000 AC 03/05 PO 1010 Dicyclomine HCl 20 MG 4 TIMES/DAY 03/01 1400 AC 03/05 PO 1703 Diltiazem HCl 30 MG BID 03/01 1049 AC 03/05 PO 2206 Furosemide 40 MG 7:30 AM, & 4:30 PM 03/03 0730 AC 03/06 PO 0852 Levothyroxine Sodium 0.125 MG DAILY AC 03/02 0700 AC 03/06 PO 0851 Lidocaine 1 PAT DAILY 03/03 1000 AC 03/05 EXT 1010 Magnesium Chloride 64 MG BID 03/06 1000 AC PO Magnesium Hydroxide 30 ML DAILY NEEDED PRN 03/01 1100 AC PO Metoprolol Tartrate 50 MG BID 03/01 2200 AC 03/05 PO 1010 Mirabegron 25 MG QPM 03/01 2200 AC 03/05 PO 2206 Multivitamins 1 TAB DAILY 03/02 1000 AC 03/05 Therapeutic PO 1010 Omeprazole 40 MG DAILY AC 03/02 0700 AC 03/06 PO 0730 Potassium Chloride 40 MEQ ONCE ONE 03/06 0930 AC PO 03/06 0931 Potassium Chloride 10 MEQ Q1H 03/06 0915 DC IV 03/06 1016 Potassium Chloride 40 MEQ DAILY 03/03 1000 AC 03/05 PO 1010 Rivaroxaban 15 MG 1700 03/05 1700 DC 03/05 PO 1703 Simethicone 80 MG Q4 HRS NEEDED PRN 03/01 1100 AC PO Tiotropium [place] 1 PUF DAILY 03/02 1000 AC 03/05 INH 1010 Tramadol HCl 50 MG Q4H PRN 03/01 1100 AC 03/06 PO 0730 Trazodone HCl 25 MG BID PRN 03/01 1100 AC PO Laboratory Tests 03/06 0700 Chemistry Sodium (137 - 145 mmol/L) 136 L Potassium (3.5 - 5.1 mmol/L) 3.5 Chloride (98 - 107 mmol/L) 90 L Carbon Dioxide (22 - 30 mmol/L) 41 H Anion Gap (5 - 16) 5 BUN (7 - 17 mg/dL) 10 Creatinine (0.5 - 1.0 mg/dL) 0.8 Estimated GFR (>60 ml/min) > 60 BUN/Creatinine Ratio (7 - 25 %) 12.5 Phosphorus (2.5 - 4.5 mg/dL) 4.3 Magnesium (1.6 - 2.3 mg/dL) 1.8 Hematology CBC w Diff NO MAN DIFF REQ WBC (4.8 - 10.8 /CUMM) 7.0 RBC (4.20 - 5.40 /CUMM) 3.09 L Hgb (12.0 - 16.0 G/DL) 8.9 L Hct (37 - 47 %) 27.6 L MCV (81.0 - 99.0 FL) 89.2 MCH (27.0 - 31.0 PG) 28.6 RDW (11.5 - 14.5 %) 17.1 H Plt Count (130 - 400 /CUMM) 325 MPV (7.4 - 10.4 FL) 7.9 Gran % (42.2 - 75.2 %) 59.0 Lymphocytes % (20.5 - 51.1 %) 21.1 Monocytes % (1.7 - 9.3 %) 12.4 H Eosinophils % (0 - 5 %) 7.0 H Basophils % (0.0 - 2.0 %) 0.5 Absolute Granulocytes (1.4 - 6.5 /CUMM) 4.1 Absolute Lymphocytes (1.2 - 3.4 /CUMM) 1.5 Absolute Monocytes (0.10 - 0.60 /CUMM) 0.9 H Absolute Eosinophils (0.0 - 0.7 /CUMM) 0.5 Absolute Basophils (0.0 - 0.2 /CUMM) 0 PUBS MCHC (33.0 - 37.0 G/DL) 32.1 L Vital Signs Date Time Temp Pulse Resp B/P B/P Pulse O2 O2 Flow FiO2 Mean Ox Delivery Rate 03/06 0854 97.5 73 18 116/52 95 Room Air 03/06 0237 77 03/06 0008 9244 03/06 0000 98 Nasal 3.0L Cannula 03/05 2215 97.8 67 22 92/46 98 Nasal 3.0L Cannula 03/05 2206 76 92/46 03/05 2206 76 92/76 03/05 1710 94 Nasal 3.0L Cannula 03/05 1624 98.9 72 20 108/57 96 Nasal 3.0L Cannula 03/05 1010 63 108/54 03/05 1009 63 108
--- NOTE | 2017-03-06 12:39 | ULTRASOUND REPORT ---
EXAMINATION: US PLEURAL EFFUSION CLINICAL INFORMATION: Pleural effusion. Assess volume. COMPARISON: Chest radiograph 03/05/2017 TECHNIQUE: ultrasound interrogation of the chest was performed bilaterally. FINDINGS: Moderate right and moderately large left pleural effusions. The lung is seen floating within the right pleural effusion. IMPRESSION: Moderately large left pleural effusion is amenable to ultrasound-guided thoracentesis. The moderately sized right pleural effusion is not amenable to ultrasound-guided thoracentesis at this time due to intervening lung tissue.
--- NOTE | 2017-03-06 15:21 | PN- Cardiology ---
Subjective Subjective: * Patient feels a bit worn out after physcial therapy. * atrial fibrillation * On 3L O2 by NC with mild exertional shortness of breath * Stable anemia * potassium 3.5 Objective Vital Signs and I&Os Vital Signs Date Time Temp Pulse Resp B/P B/P Pulse O2 O2 Flow FiO2 Mean Ox Delivery Rate 03/06 1332 95 Nasal 3.0L Cannula 03/06 1136 73 116/52 03/06 1136 73 116/52 03/06 0854 97.5 73 18 116/52 95 Room Air 03/06 0800 95 Nasal 3.0L Cannula 03/06 0237 77 03/06 0008 92/44 03/06 0000 98 Nasal 3.0L Cannula 03/05 2215 97.8 67 22 92/46 98 Nasal 3.0L Cannula 03/05 2206 76 92/46 03/05 2206 76 92/76 03/05 1710 94 Nasal 3.0L Cannula 03/05 1624 98.9 72 20 108/57 96 Nasal 3.0L Cannula Intake & Output 03/06 1600 03/06 0800 03/06 0000 03/05 1600 03/05 0800 03/05 0000 Intake Total 600 100 240 480 120 420 Output Total 350 450 200 400 Balance 250 -350 40 480 -280 420 Intake, IV 20 Intake, Oral 600 100 240 480 120 400 Number 1 2 1 0 Bowel Movements Output, Urine 350 450 200 400 Patient 133 lb Weight Weight Shania Lift Measurement Method Physical Exam: General: WD/ WN female in NAD; alert and oriented x 3 Neck: no JVD, no carotid bruit Heart: irregularly irregular, no murmur Lungs: decreased breath sounds at the bases bilaterally Extremties: no leg edema and small size hematoma over incision Assessment/Plan Assessment/Plan * Hematoma: This patient has a resolving hematoma. Continue Xarelto if no plan for a thoracentesis. * CHF: Shayna Madrid had mild decompensatd CHF which has improved with diuresis. She has less pulmonary vascular congestion but has bilateral pleural effusion which are likely causing the oxygen dependence that she has. A continued trial of diuresis is reasonable although a window of opportunity has passed now that she is back on Xarelto. Continue Lasix to 40mg PO BID and monitor for improvement in her oxygen needs. * Patient has a low potassium that is exacerbated by diuretic use. Continue potassium supplementation. Continue telemetry? Yes
[2017-03-06 15:30] VITALS: BP 102/48
--- NOTE | 2017-03-06 15:58 | NUR ---
wound care: pt seen today for follow up from previous assessment- pt observed sitting in bedside chair with family present at chairside - denies c/o pain to coccyx/buttocks - stated slight discomfort to hip wound - left buttocks stage 2 pressure injury 4 x 5.1 cm clean pink overly moist wound base with periwound maceration - right buttocks stage 2 pressure injury 2 x 2.6 cm clean pink overly moist wound base - coccyx unstageable pressure injury 3 x 2.7 cm 100% moist semiadherent slough - no evidence of infection - due to overly moist wound base and nonaderence of hydrocolloid dressing, pt would benefit from more absorbant dressing with antimicrobial properties recommendation: dc current wound care and start the following: cleanse buttocks and coccyx wounds with ns fb silver alginate and dpd every other day and prn - clinitron mattress - sidelying position wib please
[2017-03-06 23:00] VITALS: BP 106/52
--- NOTE | 2017-03-07 07:44 | PN- Housestaff ---
Subjective Follow-up For: CHF exacerbation B/L pleural effusion Complaints: no complaints Tele-Events Since Last Visit: No significant telemetry events overnight Subjective: Patient was seen and examined this morning. She was lying comfortably in bed without any complaints. She remained afebrile with normal vital signs. She is saturating 95% on 2 L of nasal cannula oxygen. Labs are significant for stable H&H and today her hemoglobin is 8.9 with hematocrit of 27.6. She had stable hematoma and seen by orthopedic surgery. Her mandy were removed today and Steri-Strips were placed. Patient has to follow up with Dr. Mir as outpatient. Patient has bilateral pleural effusion but as her edema is getting better we are not pursuing thoracenteses on her patient was also seen by cardiology and she is stable to discharge to [facility] today Review of Systems Constitutional: Denies: chills, diaphoresis, fever. EENTM: Denies: blurred vision, double vision. Cardiovascular: Denies: chest pain. Respiratory: Denies: cough, hemoptysis. Gastrointestinal: Denies: bloating, constipation. Objective Last 24 Hrs of Vital Signs/I&O Vital Signs Date Time Temp Pulse Resp B/P B/P Pulse O2 O2 Flow FiO2 Mean Ox Delivery Rate 03/07 0000 Nasal 2.0L Cannula 03/06 2300 98.3 68 18 106/52 95 Nasal 2.0L Cannula 03/06 2134 68 106/52 03/06 2134 68 106/52 03/06 1651 Nasal 3.0L Cannula 03/06 1530 98.3 72 18 102/48 97 Nasal 2.0L Cannula 03/06 1332 95 Nasal 3.0L Cannula 03/06 1136 73 116/52 03/06 1136 73 116/52 Intake & Output 03/07 1600 03/07 0800 03/07 0000 Intake Total 0 350 Output Total 300 800 Balance -300 -450 Intake, IV 0 0 Intake, Oral 0 350 Number 0 0 Bowel Movements Output, Urine 300 800 Physical Exam General Appearance: Alert, Oriented X3, Cooperative Skin: No Breakdown Cardiovascular: Normal S1, Normal S2, irregularly irregular heart rate Lungs: bilateral reduced air entry Abdomen: Soft, No Tenderness Current Medications: Current Medications Sig/Timi Start time Last Medication Dose Route Stop Time Status Admin Acetaminophen 650 MG Q6P PRN 03/01 1100 AC PO Albuterol Sulfate 3 ML Q4P PRN 03/01 1400 AC INH Bisacodyl 10 MG DAILY NEEDED PRN 03/01 1100 AC [place] Cholecalciferol 1,000 IU DAILY 03/02 1000 AC 03/06 PO 1137 Dicyclomine HCl 20 MG 4 TIMES/DAY 03/01 1400 AC 03/06 PO 1815 Diltiazem HCl 30 MG BID 03/01 1049 AC 03/06 PO 2134 Furosemide 40 MG 7:30 AM, & 4:30 PM 03/07 0730 AC PO Furosemide 40 MG ONCE ONE 03/06 1700 DC 03/06 IV 03/06 1701 1633 Levothyroxine Sodium 0.125 MG DAILY AC 03/02 0700 AC 03/06 PO 0851 Lidocaine 1 PAT DAILY 03/03 1000 AC 03/06 EXT 1142 Magnesium Chloride 64 MG BID 03/06 1000 AC 03/06 PO 2135 Magnesium Hydroxide 30 ML DAILY NEEDED PRN 03/01 1100 AC PO Metoprolol Tartrate 50 MG BID 03/01 2200 AC 03/06 PO 2134 Mirabegron 25 MG QPM 03/01 2200 AC 03/06 PO 2135 Multivitamins 1 TAB DAILY 03/02 1000 AC 03/06 Therapeutic PO 1137 Omeprazole 40 MG DAILY AC 03/02 0700 AC 03/07 PO 0514 Patient Medication 1 ED .STK-MED ONE 03/06 1354 AL Teaching ED 03/06 1355 Potassium Chloride 40 MEQ DAILY 03/03 1000 AC 03/06 PO 1138 Rivaroxaban 15 MG 1700 03/06 1700 AC 03/06 PO 1633 Simethicone 80 MG Q4 HRS NEEDED PRN 03/01 1100 AC PO Tiotropium [place] 1 PUF DAILY 03/02 1000 AC 03/06 INH 1134 Tramadol HCl 50 MG Q4H PRN 03/01 1100 AC 03/06 PO 0730 Trazodone HCl 25 MG BID PRN 03/01 1100 AC PO Last 24 Hrs of Lab/Bill Results Last 24 Hrs of Labs/Mics: Laboratory Tests 03/07/17 0510: Anion Gap 8, Estimated GFR > 60, BUN/Creatinine Ratio 13.8 Assessment/Plan Assessment: is an 86 yo female with pmh of A.fib on xarelto, Hx of CAD, HFpEF ( EF 65%) with pulmonary HTN, 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 hip fracture s/p percutaneous pinning, BIBA from STR for SOB started today at am. admitted to telemetry floor for acute CHF exacerbation. #Acute CHF exacerbation: Will give 1 dose of IV lasix at pm. Tomorrow will resume 40mg BID of Lasix # B/l moderate pleural effusion: case was discussed with IR, for now will do diagnostic US to evaluate pleural fluid and to assess if enough to be taped. Case also disucussed with attending, as she had CXR on admission and yesterday which shows improvement of pulmonary edema and pleural fluid, her respiratory status is also improved and she lost weight, diuresed well, will hold on thoracentesis for now. Will contniue diuresis, O2 to be taper as tolerated, patient will be discharged to STR today. We are not pursuing with thoracenteses #Hpokalemia: K today is 3.7. #Rt. hip hematoma: Stable in size, H&H stable. (Xarelto) started # A.fib On Xarelto: anticoagulation started . Metoprolol continued at 50mg BID per supervisor [employer] . Need to monitor her heart rate and blood pressure closely. # Asthma/COPD: Her respiratory status is stable, she is now on 1 L NC, O2 sat: 99% # hypothyroidism: c/w home dose levothyroxine 0.125mg daily. 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 She has patent Rt. port-a-cath. Stable. ALP is elevated likely from bone metasis. # Anemia: Her hemoglobin this morning is stable. # Stage II decubitus ulcer present on admission: LEFT BUTTOCKS STAGE 2 PRESSURE INJURY 5X5 CM CLEAN PINK DRY FILL NON DRNG - RIGHT BUTTOCKS 4.3 X 5 CM STAGE 2 PRESSURE INJURY . Ulcer today looks clean, started to heal She needs to work with PT. DVT ppx:Alps, Xarelto DNR/I Pain pathway (Tramadol, tylenol) Problem List: 1. Hypertension 2. Hx of fracture of right hip 3. Hematoma of right hip Pain Ratin Pain Location: Not applicable Pain Goal: Remain pain free Pain Plan: Tylenol Tomorrow's Labs & Rationales: None
--- NOTE | 2017-03-07 08:46 | PN- Orthopedic ---
See Addendum Subjective Subjective: No complaints. Objective Vital Signs and I&Os Vital Signs Date Time Temp Pulse Resp B/P B/P Pulse O2 O2 Flow FiO2 Mean Ox Delivery Rate 03/07 0000 Nasal 2.0L Cannula 03/06 2300 98.3 68 18 106/52 95 Nasal 2.0L Cannula 03/06 2134 68 106/52 03/06 2134 68 106/52 03/06 1651 Nasal 3.0L Cannula 03/06 1530 98.3 72 18 102/48 97 Nasal 2.0L Cannula 03/06 1332 95 Nasal 3.0L Cannula 03/06 1136 73 116/52 03/06 1136 73 116/52 03/06 0854 97.5 73 18 116/52 95 Room Air Intake & Output 03/07 0803/07 0000 03/06 1600 03/06 0800 03/06 0000 Intake Total 0 350 600 100 240 Output Total 300 800 350 450 200 Balance -300 -450 250 -350 40 Intake, IV 0 0 Intake, Oral 0 350 600 100 240 Number 0 0 1 Bowel Movements Output, Urine 300 800 350 450 200 Physical Exam: RLE - +EHL/FHL incision c/d/i. mandy removed. steri strips placed. stable hematoma appreciated. soft. Assessment/Plan Assessment/Plan A/P - s/p right hip percutaneous pinning WBAT with PT stable hematoma mandy removed. steri strips placed will d/w
--- NOTE | 2017-03-07 09:33 | PN- Att Addend ---
Attending Addendum Attending Brief Note Patient is on 2 L of oxygen. She complains of right hip pain. General Appearance: Alert, No Acute Distress Skin: Grossly normal HEENT: PEERLA Neck: Supple, No JVD Cardiovascular: Regular Rate, Normal S1, Normal S2, No Murmurs Lungs: Decreased air entry all mohan Abdomen: Normal Bowel Sounds, Soft, No Tenderness Neurological: Normal Speech, Strength at 5/5 X4 Ext, Cranial Nerves 3-12 NL, Reflexes 2+ Extremities: Right upper hip suture clean with hematoma Vascular: Normal Pulses Assessment Moderate pleural effusions. Her breathing however has improved and she is requiring 2 liters of oxygen. Will follow-up the chest x-ray as outpatient. In the meantime we will continue to diuresis her and discharge to rehabilitation. Plan Taper oxygen for saturation above 92% Incentive spirometry Continue xarelto Continue current pain meds Ambulate with physical therapy Continue other meds discharge to STR Current Medications Sig/Timi Start time Last Medication Dose Route Stop Time Status Admin Acetaminophen 650 MG Q6P PRN 03/01 1100 AC PO Albuterol Sulfate 3 ML Q4P PRN 03/01 1400 AC INH Bisacodyl 10 MG DAILY NEEDED PRN 03/01 1100 AC [place] Cholecalciferol 1,000 IU DAILY 03/02 1000 AC 03/06 PO 1137 Dicyclomine HCl 20 MG 4 TIMES/DAY 03/01 1400 AC 03/06 PO 1815 Diltiazem HCl 30 MG BID 03/01 1049 AC 03/06 PO 2134 Furosemide 40 MG 7:30 AM, & 4:30 PM 03/07 0730 AC PO Furosemide 40 MG ONCE ONE 03/06 1700 DC 03/06 IV 03/06 1701 1633 Levothyroxine Sodium 0.125 MG DAILY AC 03/02 0700 AC 03/06 PO 0851 Lidocaine 1 PAT DAILY 03/03 1000 AC 03/06 EXT 1142 Magnesium Chloride 64 MG BID 03/06 1000 AC 03/06 PO 2135 Magnesium Hydroxide 30 ML DAILY NEEDED PRN 03/01 1100 AC PO Metoprolol Tartrate 50 MG BID 03/01 2200 AC 03/06 PO 2134 Mirabegron 25 MG QPM 03/01 220 AC 03/06 PO 2135 Multivitamins 1 TAB DAILY 03/02 1000 AC 03/06 Therapeutic PO 1137 Omeprazole 40 MG DAILY AC 03/02 0700 AC 03/07 PO 0514 Patient Medication 1 ED .STK-MED ONE 03/06 1354 DC Teaching ED 03/06 1355 Potassium Chloride 40 MEQ DAILY 03/03 1000 AC 03/06 PO 1138 Rivaroxaban 15 MG 1700 03/06 1700 AC 03/06 PO 1633 Simethicone 80 MG Q4 HRS NEEDED PRN 03/01 1100 AC PO Tiotropium [place] 1 PUF DAILY 03/02 1000 AC 03/06 INH 1134 Tramadol HCl 50 MG Q4H PRN 03/01 1100 AC 03/06 PO 0730 Trazodone HCl 25 MG BID PRN 03/01 1100 AC PO Laboratory Tests 03/07 0510 Chemistry Sodium (137 - 145 mmol/L) 136 L Potassium (3.5 - 5.1 mmol/L) 3.7 Chloride (98 - 107 mmol/L) 88 L Carbon Dioxide (22 - 30 mmol/L) 40 H Anion Gap (5 - 16) 8 BUN (7 - 17 mg/dL) 11 Creatinine (0.5 - 1.0 mg/dL) 0.8 Estimated GFR (>60 ml/min) > 60 BUN/Creatinine Ratio (7 - 25 %) 13.8 Vital Signs Date Time Temp Pulse Resp B/P B/P Pulse O2 O2 Flow FiO2 Mean Ox Delivery Rate 03/07 0000 Nasal 2.0L Cannula 03/06 2300 98.3 68 18 106/52 95 Nasal 2.0L Cannula 03/06 2134 68 106/52 03/06 2134 68 106/52 03/06 1651 Nasal 3.0L Cannula 03/06 1530 98.3 72 18 102/48 97 Nasal 2.0L Cannula 03/06 1332 95 Nasal 3.0L Cannula 03/06 1136 73 116/52 03/06 1136 73 116/52
[2017-03-07 10:40] VITALS: BP 98/54
[2017-03-07 12:53] VITALS: BP 103/49
--- NOTE | 2017-03-07 13:06 | RADIOLOGY REPORT ---
EXAMINATION: XR PORTABLE CHEST CLINICAL INFORMATION: CHF, bilateral pleural effusion. COMPARISON: Chest done on 03/05/2017. TECHNIQUE: Portable 85 degrees upright view of the chest was obtained. FINDINGS: Previously documented right-sided pleural effusion is no longer visualized. The pulmonary venous hypertension, as well as interstitial edema shows near-complete interval resolution. There is persistent retrocardiac airspace opacity, obliteration of the left hemidiaphragm and obliteration of the left lateral costophrenic angle identified, consistent with left lower lobar atelectasis, infiltrate, combination thereof with small left-sided stable pleural effusion. The cardiac mediastinal silhouette remain moderately enlarged. There is a right-sided Port-A-Cath present, the tip of the catheter appears to be projecting at the cavoatrial junction, unchanged. IMPRESSION: Evidence of interval improvement of presumed CHF since 03/05/2017. Persistent nonspecific retrocardiac airspace disease and small left-sided pleural effusion. Follow-up radiograph to document complete resolution is recommended.
--- NOTE | 2017-03-07 15:11 | PN- Cardiology ---
Subjective Subjective: * Patient remains fatigued with lessining of her pleural effusions and oxygen requirements. * Atrial fibrillation with controlled heart rate. * potassium is 3.7 Objective Vital Signs and I&Os Vital Signs Date Time Temp Pulse Resp B/P B/P Pulse O2 O2 Flow FiO2 Mean Ox Delivery Rate 03/07 1440 77 103/03/07 1439 77 103/49 03/07 1410 95 Nasal 1.0L Cannula 03/07 1253 103/49 03/07 1040 98.8 77 18 98/54 94 Nasal 1.0L Cannula 03/07 0000 Nasal 2.0L Cannula 03/06 2300 98.3 68 18 106/52 95 Nasal 2.0L Cannula 03/06 2134 68 106/52 03/06 2134 68 106/03/06 1651 Nasal 3.0L Cannula 03/06 1530 98.3 72 18 102/48 97 Nasal 2.0L Cannula Intake & Output 03/07 1600 03/07 0800 03/07 0000 03/06 1600 03/06 0800 03/06 0000 Intake Total 600 0 350 600 100 240 Output Total 1250 300 800 350 450 200 Balance -650 -300 -450 250 -350 40 Intake, IV 0 0 Intake, Oral 600 0 350 600 100 240 Number 2 0 0 1 Bowel Movements Output, Urine 1250 300 800 350 450 200 Physical Exam: General: WD/ WN female in NAD; alert and oriented x 3 Neck: no JVD, no carotid bruit Heart: irregularly irregular, no murmur Lungs: decreased breath sounds at the bases bilaterally Extremties: no leg edema and small size hematoma over incision Assessment/Plan Assessment/Plan * Hematoma: This patient has a resolving hematoma. Continue Xarelto. * CHF: Shayna Madrid had mild decompensatd CHF which has improved with diuresis. Her pulmonary congestion and pleural effusions are improving. Continue Lasix at 40mg PO BID. She is stable to go to a [facility] from a cardiac standpoint with follow up in the office in two weeks. * Continue potassium supplementation. Continue telemetry? No
[2017-03-07 16:05] VITALS: BP 111/44
[2017-03-08 00:27] VITALS: BP 96/57
--- NOTE | 2017-03-08 07:35 | PN- Housestaff ---
Subjective Follow-up For: CHF exacerbation B/L pleural effusion Complaints: tiredness Tele-Events Since Last Visit: No significant telemetry events overnight Subjective: Vision was seen and examined this morning. She was lying on bed complaining of tiredness and midback pain. Patient was given tramadol at 5:30 and we will give IV Tylenol for her pain. She remained afebrile with normal vital signs. Her hematoma remained stable and we will discharge patient to rehabilitation today Review of Systems Constitutional: Reports: weakness. Denies: chills, diaphoresis. EENTM: Denies: blurred vision, double vision. Cardiovascular: Denies: chest pain, edema. Respiratory: Denies: hemoptysis, orthopnea. Gastrointestinal: Denies: abdominal pain, bloating. Genitourinary: Denies: dysuria. Objective Last 24 Hrs of Vital Signs/I&O Vital Signs Date Time Temp Pulse Resp B/P B/P Pulse O2 O2 Flow FiO2 Mean Ox Delivery Rate 03/08 0842 90 110/70 03/08 0842 90 110/70 03/08 0803 94 Nasal 1.0L Cannula 03/08 0756 97.9 90 16 110/68 95 Nasal 1.0L Cannula 03/08 0027 98.3 74 18 96/57 97 Nasal Cannula 03/08 0000 94 Nasal 1.0L Cannula 03/076 90 102/42 03/075 90 102/42 03/07 2115 93 Nasal 1.0L Cannula 03/07 1605 98.7 83 17 111/44 93 Nasal 5.0L Cannula 03/07 1600 Nasal 1.0L Cannula 03/07 1440 77 103/49 03/07 1439 77 103/49 03/07 1410 95 Nasal 1.0L Cannula 03/07 1253 103/49 03/07 1040 98.8 77 18 98/54 94 Nasal 1.0L Cannula Intake & Output 03/08 1600 03/08 0800 03/08 0000 Intake Total 200 360 Output Total 600 Balance -400 360 Intake, Oral 200 360 Output, Urine 600 Patient 130 lb Weight Weight Shania Lift Measurement Method Physical Exam General Appearance: Alert, Oriented X3, Cooperative, No Acute Distress Skin: stage2 pressure ulcers on right and left buttocks HEENT: Atraumatic Cardiovascular: Normal S1, Normal S2, irregularly irregular Lungs: bilateral basal crackles Abdomen: Soft Current Medications: Current Medications Sig/Timi Start time Last Medication Dose Route Stop Time Status Admin Acetaminophen 650 MG .STK-MED ONE 03/07 2120 DC PO 03/07 2121 Acetaminophen 650 MG Q6P PRN 03/01 1100 AC 03/07 PO 212 Albuterol Sulfate 3 ML Q4P PRN 03/01 1400 AC INH Bisacodyl 10 MG DAILY NEEDED PRN 03/01 1100 AC NM Cholecalciferol 1,000 IU DAILY 03/02 1000 AC 03/08 PO 0842 Dicyclomine HCl 20 MG 4 TIMES/DAY 03/01 1400 AC 03/08 PO 0842 Diltiazem HCl 30 MG BID 03/01 1049 AC 03/08 PO 0842 Furosemide 40 MG 7:30 AM, & 4:30 PM 03/07 0730 AC 03/08 PO 0653 Levothyroxine Sodium 0.125 MG DAILY AC 03/02 0700 AC 03/08 PO 0653 Lidocaine 1 PAT DAILY 03/03 1000 AC 03/08 EXT 0844 Magnesium Chloride 64 MG BID 03/06 1000 AC 03/08 PO 0843 Magnesium Hydroxide 30 ML DAILY NEEDED PRN 03/01 1100 AC PO Metoprolol Tartrate 50 MG BID 03/01 2200 AC 03/08 PO 0842 Mirabegron 25 MG QPM 03/01 2200 AC 03/07 PO 2125 Multivitamins 1 TAB DAILY 03/02 1000 AC 03/08 Therapeutic PO 0842 Omeprazole 40 MG DAILY AC 03/02 0700 AC 03/08 PO 0652 Potassium Chloride 40 MEQ DAILY 03/03 1000 AC 03/08 PO 0842 Rivaroxaban 15 MG 1700 03/06 1700 AC 03/07 PO 1846 Simethicone 80 MG Q4 HRS NEEDED PRN 03/01 1100 AC PO Tiotropium [place] 1 PUF DAILY 03/02 1000 AC 03/08 INH 0843 Tramadol HCl 50 MG Q4H PRN 03/01 1100 AC 03/08 PO 0828 Trazodone HCl 25 MG BID PRN 03/01 1100 AC PO Assessment/Plan Assessment: is an 86 yo female with pmh of A.fib on xarelto, Hx of CAD, HFpEF ( EF 65%) with pulmonary HTN, 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 hip fracture s/p percutaneous pinning, BIBA from STR for SOB started today at am. admitted to telemetry floor for acute CHF exacerbation. #Acute CHF exacerbation: Patient is progressively doing better and her chest x- ray showed significant improvement but she has pleural effusions but we are holding off thoracentesis for now # B/l moderate pleural effusion: case was discussed with IR, for now will do diagnostic US to evaluate pleural fluid and to assess if enough to be taped. Case also disucussed with attending, as she had CXR on admission and yesterday which shows improvement of pulmonary edema and pleural fluid, her respiratory status is also improved and she lost weight, diuresed well, will hold on thoracentesis for now. Will contniue diuresis, O2 to be taper as tolerated, patient will be discharged to STR today. We are not pursuing with thoracenteses #Hpokalemia: K today is 3.7. #Rt. hip hematoma: Stable in size, H&H stable. (Xarelto) started # A.fib On Xarelto: anticoagulation started . Metoprolol continued at 50mg BID per renewable energy project manager . Need to monitor her heart rate and blood pressure closely. # Asthma/COPD: Her respiratory status is stable, she is now on 1 L NC, O2 sat: 99% and we will try to taper her oxygen off today # hypothyroidism: c/w home dose levothyroxine 0.125mg daily. 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 She has patent Rt. port-a-cath. Stable. ALP is elevated likely from bone metasis. # Anemia: Her hemoglobin this morning is stable. # Stage II decubitus ulcer present on admission: LEFT BUTTOCKS STAGE 2 PRESSURE INJURY 5X5 CM CLEAN PINK DRY FILL NON DRNG - RIGHT BUTTOCKS 4.3 X 5 CM STAGE 2 PRESSURE INJURY . Ulcer today looks clean, started to heal She needs to work with PT. DVT ppx:Alps, Xarelto DNR/I Pain pathway (Tramadol, tylenol) Problem List: 1. Hx of fracture of right hip 2. Hematoma of right hip Pain Ratin Pain Location: Back pain Pain Goal: Remain pain free Pain Plan: Tramadol/Tylenol Tomorrow's Labs & Rationales: CBC and BeP
[2017-03-08 07:56] VITALS: BP 110/68
--- NOTE | 2017-03-08 12:33 | PN- Att Addend ---
Attending Addendum Attending Brief Note Patient is on room air. She complains of right hip pain. General Appearance: Alert, No Acute Distress Skin: Grossly normal HEENT: PEERLA Neck: Supple, No JVD Cardiovascular: Regular Rate, Normal S1, Normal S2, No Murmurs Lungs: Decreased air entry all mohan Abdomen: Normal Bowel Sounds, Soft, No Tenderness Neurological: Normal Speech, Strength at 5/5 X4 Ext, Cranial Nerves 3-12 NL, Reflexes 2+ Extremities: Right upper hip suture clean with hematoma Vascular: Normal Pulses Assessment Effusions improved and currently she is on room air. Patient is otherwise stable for discharge. Plan Incentive spirometry Continue xarelto Continue current pain meds Ambulate with physical therapy Continue other meds discharge to STR Current Medications Sig/Timi Start time Last Medication Dose Route Stop Time Status Admin Acetaminophen 650 MG .STK-MED ONE 03/07 2120 DC PO 03/07 2121 Acetaminophen 650 MG Q6P PRN 03/01 1100 AC 03/07 PO 212 Albuterol Sulfate 3 ML Q4P PRN 03/01 1400 AC INH Bisacodyl 10 MG DAILY NEEDED PRN 03/01 1100 AC PA Cholecalciferol 1,000 IU DAILY 03/02 1000 AC 03/08 PO 0842 Dicyclomine HCl 20 MG 4 TIMES/DAY 03/01 1400 AC 03/08 PO 0842 Diltiazem HCl 30 MG BID 03/01 1049 AC 03/08 PO 0842 Furosemide 40 MG 7:30 AM, & 4:30 PM 03/07 0730 AC 03/08 PO 0653 Levothyroxine Sodium 0.125 MG DAILY AC 03/02 0700 AC 03/08 PO 0653 Lidocaine 1 PAT DAILY 03/03 1000 AC 03/08 EXT 0844 Magnesium Chloride 64 MG BID 03/06 1000 AC 03/08 PO 0843 Magnesium Hydroxide 30 ML DAILY NEEDED PRN 03/01 1100 AC PO Metoprolol Tartrate 50 MG BID 03/01 2200 AC 03/08 PO 0842 Mirabegron 25 MG QPM 03/01 220 AC 03/07 PO 2125 Multivitamins 1 TAB DAILY 03/02 1000 AC 03/08 Therapeutic PO 0842 Omeprazole 40 MG DAILY AC 03/02 0700 AC 03/08 PO 0652 Potassium Chloride 40 MEQ DAILY 03/03 1000 AC 03/08 PO 0842 Rivaroxaban 15 MG 1700 03/06 1700 AC 03/07 PO 1846 Simethicone 80 MG Q4 HRS NEEDED PRN 03/01 1100 AC PO Tiotropium [place] 1 PUF DAILY 03/02 1000 AC 03/08 INH 0843 Tramadol HCl 50 MG Q4H PRN 03/01 1100 DC 03/08 PO 0828 Trazodone HCl 25 MG BID PRN 03/01 1100 AC PO Vital Signs Date Time Temp Pulse Resp B/P B/P Pulse O2 O2 Flow FiO2 Mean Ox Delivery Rate 03/08 0842 90 110/70 03/08 0842 90 110/70 03/08 0803 94 Nasal 1.0L Cannula 03/08 0756 97.9 90 16 110/68 95 Nasal 1.0L Cannula 03/08 0027 98.3 74 18 96/57 97 Nasal Cannula 03/08 0000 94 Nasal 1.0L Cannula 03/07 2126 90 102/42 03/07 2125 90 102/42 03/07 2115 93 Nasal 1.0L Cannula 03/07 1605 98.7 83 17 111/44 93 Nasal 5.0L Cannula 03/07 1600 Nasal 1.0L Cannula 03/07 1440 77 103/49 03/07 1439 77 103/49 03/07 1410 95 Nasal 1.0L Cannula 03/07 1253 103
[2017-03-08] MEDS ORDERED: LASIX40 M1 PO (13:10)
[2017-03-08] MEDS ORDERED: KLOR-CON M2020 ME1 PO (13:10)
[2017-03-08 14:20] VITALS: BP 110/70
--- NOTE | 2017-03-08 14:29 | RADIOLOGY REPORT ---
EXAMINATION: XR HIP, RIGHT CLINICAL INFORMATION: 2 weeks status post open reduction internal fixation of right femoral neck fracture. COMPARISON: Right hip films dated 03/01/2017. TECHNIQUE: Two views of the right hip. FINDINGS: There are 3 partially threaded nail seen transfixing the right femoral neck fracture. No hardware failure or malpositioning is noted. The fracture line is still partially visualized but appears indistinct. No new fracture or dislocation is noted. Osteopenia is present. Mild degenerative changes are seen at the pubic symphysis. IMPRESSION: 1. No evidence of hardware failure or recurrent [place] bone fracture. 2. Near anatomic alignment status post open reduction internal fixation of right femoral neck fracture. Interval healing changes are seen involving the right femoral neck fracture.
== END 2017-03-08 15:20 | DRG 291 ==
LOC: ERH 08:03 → 1NO 09:49 → ERHI 09:49 → 1NO 09:49 → ENPENDDIS 03-08 12:35 → 1NO 03-08 15:20
PROVIDERS: Emergency Medicine; Student in an Organized Health Care Education/Training Program; ADMIT Internal Medicine
DX: I13.0 Hypertensive heart and chronic kidney disease with heart failure and stage 1 through stage 4 chronic kidney disease, or unspecified chronic kidney disease (principal); L89.312 Pressure ulcer of right buttock, stage 2; L89.322 Pressure ulcer of left buttock, stage 2; C79.51 Secondary malignant neoplasm of bone; J90 Pleural effusion, not elsewhere classified; C85.90 Non-Hodgkin lymphoma, unspecified, unspecified site; I27.2 Other secondary pulmonary hypertension; J44.9 Chronic obstructive pulmonary disease, unspecified; I48.91 Unspecified atrial fibrillation; N18.3 Chronic kidney disease, stage 3 (moderate); Z79.01 Long term (current) use of anticoagulants; I50.33 Acute on chronic diastolic (congestive) heart failure; M96.840 Postprocedural hematoma of a musculoskeletal structure following a musculoskeletal system procedure; E87.6 Hypokalemia; E03.9 Hypothyroidism, unspecified
CPT/HCPCS: 1NP; 36415; 73502-RT; 81001; 82436; 87086; 93005; 93010; 96365; 96375; 97110-GO; 97116-GO; 97161-GP; 97166-GO; 97530-GO; 99291; J0131; J0696; J1940

== ENCOUNTER 2017-03-09 21:41 | Emergency (ER) | payer OTHER, MEDICARE ==
[~2017-03-09] VITALS: Ht 157.5 cm; Wt 56.7 kg
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
--- NOTE | 2017-03-09 23:13 | RADIOLOGY REPORT ---
EXAMINATION: 1. Lumbar spine. 2. Sacrum. CLINICAL INFORMATION: Fall. Pain. COMPARISON: CT PET exam of 07/04/2016 TECHNIQUE: 1. Lumbar spine. AP lateral. 2. Sacrum and coccyx. 2 views FINDINGS: 1. Lumbar spine. There is osteopenia. Vertebrae have normal height and alignment. No fracture bone destruction. Mild degenerative disc height narrowing at L3-L4 and significant disc height narrowing at L4-L5. Mild facet joint arthrosis of the lower lumbar spine. 2. Sacrum or coccyx. There is osteopenia. No fracture or bone destruction. IMPRESSION: 1. Lumbar spine. No acute abnormality. Degenerative disc disease. 2. Sacrum and coccyx. No fracture bone destruction.
--- NOTE | 2017-03-09 23:14 | RADIOLOGY REPORT ---
EXAMINATION: XR HIP, RIGHT XR ANKLE, RIGHT CLINICAL INFORMATION: Pain. Fall. COMPARISON: CT from 01/16/2017. Radiographs 02/05/2017. TECHNIQUE: 2 views of the right hip. 3 views of the right ankle. FINDINGS: Right hip: There are 3 cannulated screws transfixing the right femoral neck fracture with unchanged alignment. The femoral head is well-seated within its acetabulum. Mild degenerative changes are seen at the hip. Soft tissue swelling overlies the hip. No acute fracture. Right ankle: No acute fracture or dislocation. Ankle mortise is congruent. The soft tissues are unremarkable. No joint effusion. Tiny Achilles heel spur. IMPRESSION: Intact hardware at the right proximal femur. No acute fracture or malalignment at the right hip or ankle.
[2017-03-09 23:23] VITALS: BP 116/55
== END 2017-03-10 00:15 ==
LOC: ERH 21:41
DX: L89.159 Pressure ulcer of sacral region, unspecified stage (principal); T14.8 Other injury of unspecified body region; W06.XXXA Fall from bed, initial encounter
CPT/HCPCS: 72100; 72220; 73502-RT; 73610-RT

== ENCOUNTER 2017-12-27 01:36 | Inpatient (IN) | payer OTHER, MEDICARE ==
[~2017-12-27] VITALS: Ht 157.5 cm; Wt 50.8 kg
[~2017-12-27 01:36] MED LIST changes: +CYCLOBENZAPRINE5 M2 PO; +REMERON15 M2 PO
--- NOTE | 2017-12-27 11:14 | Operative Report ---
Operative/Inv Procedure Report Surgery Date: 12/27/17 Name of Procedure: Right hip removal of hardware, exchange of percutaneous pins Pre-Operative Diagnosis: Right hip painful hardware Post-Operative Diagnosis: Right hip painful hardware Estimated Blood Loss: scant Surgeon/Manager Unit: Amy MAYBERRY,RADHA Henning Anesthesia: moderate sedation, block Complications: None Condition: stable to PACU Operative Indication: This is an 87-year-old female who had a right hip percutaneous pinning in February 2017. Her fracture settled resulting in prominent percutaneous pins irritating her iliotibial band. After failure of conservative care and we decided to remove the hardware and exchange the screws. Risks and benefits of the procedure were discussed with the patient at length. Risks include but are not limited to nerve damage, muscle damage, infection, blood loss, blood clots, pulmonary embolus, and even . The patient agreed to the above risks and elected to proceed with surgery. Operative/Procedure Note Note: The patient was placed supine on the operating room table. Anesthesia was induced by the anesthesia team. The patient received IV antibiotics prior to incision. A timeout was performed prior to incision. The site marking was visualized prior to incision. The patient was positioned on the fracture table with the injured extremity in a well-padded traction boot. The contralateral lower extremity was placed in flexion and abduction in a well-padded leg mahoney. Traction was applied to the injured extremity and the fracture was reduced under x-ray guidance. The lower extremity was prepped and draped in the normal sterile fashion. An incision was made at the previous incision site. The IT band was incised. The screws were identified. The screws were removed and replaced with 8 millimeter partially threaded screws. After the screws were exchanged no prominence of the screws were noted. The wound was copiously irrigated. The fascia was closed with #1 Vicryl suture in a simple interrupted fashion. The skin was closed with 2-0 Vicryl suture and mandy. A dry sterile dressing was placed and patient was transferred to PACU in stable condition.
--- NOTE | 2017-12-27 14:13 | RADIOLOGY REPORT ---
EXAMINATION: XR HIP, RIGHT CLINICAL INFORMATION: Right hip hardware removal COMPARISON: CT images of the right hip from 08/10/2017 TECHNIQUE: Intraoperative fluoroscopic imaging of right hip. Number of saved images: 2 Fluoroscopy time: 14.9 seconds. Dose: 145 mrad FINDINGS: 3 cannulated fixation screws extend across the right femoral neck. The old fracture through the femoral neck is suboptimally visualized on these fluoroscopic images. Fluoroscopic imaging was reportedly utilized at the time of hardware removal. IMPRESSION: Intraoperative fluoroscopic imaging of the right hip was utilized. Please refer to the operative report.
[2017-12-27 14:59] VITALS: BP 110/56
--- NOTE | 2017-12-27 15:28 | PN- Orthopedic ---
Subjective Subjective: POSTOP CHECK Patient reports heart palpitations, which is baseline for her and related to her afib. She reports postop pain is currently controlled. She denies any chest pain , shortness or breath or difficulty breathing, numness or tingling. She denies ambulating with PT yet. Objective Vital Signs and I&Os Vital Signs Date Time Temp Pulse Resp B/P B/P Pulse O2 O2 Flow FiO2 Mean Ox Delivery Rate 12/27 1459 98.1 65 12 110/56 95 Intake & Output 12/27 1600 12/27 0812/27 0000 12/26 1600 12/26 0812/26 0000 Intake Total Output Total Balance Patient 112 lb 112 lb Weight Physical Exam: Gen - resting comfortably in bed awake an alert accompained by her son Cardiac - irregularly irregular Lungs - faint inspiratory/expiratory wheezing throughout Ext - R hip dressing c/d/i, compartment soft, appropriately tender bud- incisionally, motor and sensory intact, alps in place, no edema or calf tenderness Current Medications: Current Medications Sig/Timi Start time Last Medication Dose Route Stop Time Status Admin Acetaminophen 650 MG Q6P PRN 12/27 1400 AC PO Cholecalciferol 5,000 IU DAILY 12/28 1000 AC PO Clindamycin 600 MG IQ8 12/27 1600 AC Dextrose/Water 50 ML IV 12/28 0029 Clindamycin 600 MG ONCE 12/27 0000 DC Dextrose/Water 50 ML IV 12/27 2359 Cyclobenzaprine HCl 5 MG TID PRN 12/27 1200 AC PO Dextrose/Sodium 1,000 ML .Q20H 12/27 1400 AC Chloride IV Dicyclomine HCl 20 MG 4 TIMES/DAY 12/27 1400 AC PO Diltiazem HCl 30 MG BID 12/27 2200 AC PO Docusate Sodium 100 MG DAILY NEEDED PRN 12/27 1400 AC PO Furosemide 40 MG 7:30 AM, & 4:30 PM 12/27 1630 AC PO Influenza Virus 0.5 ML ONCE ONE 12/27 1515 DC Vaccine IM 12/27 1516 Levothyroxine Sodium 0.125 MG DAILY AC 12/28 0700 AC PO Metoprolol Tartrate 50 MG BID 12/27 2200 AC PO Mirtazapine 15 MG AT BEDTIME 12/27 2200 AC PO Morphine Sulfate 4 MG Q2P PRN 12/27 1400 AC IV Omeprazole 40 MG DAILY AC 12/28 0700 AC PO Ondansetron HCl 4 MG Q6P PRN 12/27 1400 AC IV Oxycodone/ 1 TAB Q4P PRN 12/27 1400 AC Acetaminophen PO Potassium Chloride 40 MEQ DAILY 12/28 1000 AC PO Promethazine HCl 12.5 MG Q6P PRN 12/27 1400 AC IV 01/03 1144 Rivaroxaban 15 MG QPM 12/27 2200 AC PO Senna 374 MG AT BEDTIME NEED.. 12/27 1400 AC PO Tiotropium [place] 1 PUF DAILY 12/28 1000 AC INH Tramadol HCl 50 MG Q4 PRN 12/27 1200 AC PO Results Last 48 Hours of Labs: Laboratory Tests 12/27 0723 Chemistry Sodium (137 - 145 mmol/L) 144 Potassium (3.5 - 5.1 mmol/L) 4.0 Chloride (98 - 107 mmol/L) 100 Carbon Dioxide (22 - 30 mmol/L) 31 H Anion Gap (5 - 16) 13 BUN (7 - 17 mg/dL) 25 H Creatinine (0.5 - 1.0 mg/dL) 1.2 H Estimated GFR (>60 ml/min) 42 L BUN/Creatinine Ratio (7 - 25 %) 20.8 Glucose (65 - 99 mg/dL) 93 Calcium (8.4 - 10.2 mg/dL) 9.5 Assessment/Plan Assessment/Plan 87 F POD 0 s/p right hip removal of hardware, exchange of percutaneous pins secondary to painful right hip hardware s/p right hip percutaneous pinning in February 2017 PT eval, WBAT Advance to reg diet Cont IVF Postop abx - clinda Pain regimen Home meds on board DVT ppx - alps, xarelto GI ppx on board Bowel regimen on board TRC, encourage IS Core Measures Venous Thromboembolism VTE Risk Factors Surgery No Mechanical VTE Prophylaxis d/t N/A MechProphylax Ordered No VTE Pharm Prophylaxis d/t NA PharmProphylax ordered
--- NOTE | 2017-12-27 15:49 | Admission Core Measures ---
Acute Coronary Syndrome (CM) ACS Core Measures Acute Coronary Syndrome Diagnosis No Congestive Heart Failure (NEW) CHF Core Measures Congestive Heart Failure Diagnosis No Cerebrovascular Accident (NEW) CVA Core Measures CVA/TIA Diagnosis No Venous Thromboembolism VTE Core Kody (View Protocol) VTE Risk Factors Surgery No Mechanical VTE Prophylaxis d/t N/A MechProphylax Ordered No VTE Pharm Prophylaxis d/t NA PharmProphylax ordered Problem List As ranked by this Provider includes Assessment & Plan 1. Hx of fracture of right hip 2. Status post hardware removal HOME MEDS Home Med List Cholecalciferol (Vitamin D3) (Vitamin D3) 5,000 UNIT TABLET 1 TAB PO DAILY SUPPLEMENT (Reported) Cyanocobalamin (Vitamin B-12) (Cyanocobalamin Injection) 1,000 MCG/1 ML VIAL 1 ML IM Q30D SUPPLEMENT (Reported) Cyclobenzaprine HCl 5 MG TABLET 1 TAB PO DAILY SPASM (Reported) Dicyclomine Hydrochloride (Bentyl) 10 MG CAPSULE 20 MG PO 4 TIMES/DAY stomach spasms Diltiazem HCl (Cardizem) 30 MG TABLET 30 MG PO BID heart Estradiol (Climara) 0.0375 MG/24 HOUR PATCH.TDWK 1 PATCH TOP QWED HRT ( Reported) Furosemide (Lasix) 40 MG TABLET 40 MG PO 7:30 AM, & 4:30 PM DIURESIS Levothyroxine Sodium (Synthroid) 125 MCG TABLET 1 TAB PO QHS THYROID ( Reported) Metoprolol Tartrate 50 MG TABLET 50 MG PO BID A. fib Mirabegron (Myrbetriq) 25 MG TAB.ER.24H 1 TAB PO DAILY BLADDER (Reported) Mirtazapine (Remeron) 15 MG TABLET 1 TAB PO QPM SLEEP (Reported) Multivitamin (Multiple Vitamins) 1 EACH TABLET 1 TAB PO DAILY SUPPLEMENT ( Reported) Pantoprazole Sodium (Protonix) 40 MG TABLET.DR 1 TAB PO BID GI (Reported) Potassium Chloride (Klor-Con M20) 20 MEQ TAB.ER.PRT 40 MEQ PO DAILY SUPPLEMENT Rivaroxaban (Xarelto) 15 MG TABLET 1 TAB PO 1700 BLOOD THINNER (Reported) Tiotropium [place] (Spiriva) 18 MCG CAP.W.DEV 1 CAP INH DAILY BREATHING PROBLEMS (Reported)
--- NOTE | 2017-12-27 16:13 | Patient Discharge Instructions ---
Discharge Instructions General Discharge Information You were seen/treated for: painful hardware, right hip You had these procedures: Surgery: 12/27/17 Right hip removal of hardware, exchange of percutaneous pins Watch for these problems: Increasing pain despite the use of pain medication Increasing redness, warmth, swelling Drainage of any type from incision Inability to bear weight on right leg Fever greater than 101.5 Call Surgeon to remove: Neena Do not soak the wound: Yes No bath, but you may shower: Yes Other wound care: Keep wound clean and dry No ointments or lotions on or near incisions at any time. Special Instructions: staple removal around post-op day#14 Diet Continue normal diet: Yes Recommended Diet: Heart Healthy Activity Full Activity/No Limits: No Activity Self Limited: Yes Activity Limited to: Weight bear as tolerated Acute Coronary Syndrome Inclusion Criteria At DC or during hospital stay patient has or had the following: ACS DIAGNOSIS No Discharge Core Measures Meds if any: Prescribed or Continued at Discharge Meds if any: NOT Prescribed or Continued at Discharge Congestive Heart Failure Inclusion Criteria At DC or during hospital stay patient has or had the following: CHF DIAGNOSIS No Discharge Core Measures Meds if any: Prescribed or Continued at Discharge Meds if any: NOT Prescribed or Continued at Discharge Cerebrovascular accident Inclusion Criteria At DC or during hospital stay patient has or had the following: CVA/TIA Diagnosis No Discharge Core Measures Meds if any: Prescribed or Continued at Discharge Meds if any: NOT Prescribed or Continued at Discharge Venous thromboembolism Inclusion Criteria VTE Diagnosis No VTE Type NONE VTE Confirmed by (Test) NONE Discharge Core Measures - Per Current guidelines, there needs to be overlap - treatment for the first 5 days of Warfarin therapy. - If discharged on Warfarin prior to 5 days of - overlap therapy, the patient will need to be - assessed for post discharge needs including - *Post discharge parental anticoagulation - *Warfarin and/or parental anticoagulation education - *Follow up date to check INR post discharge At least 5 days overlap therapy as Inpatient No Meds if any: Prescribed or Continued at Discharge Note: Overlap Therapy is Warfarin and Anticoagulant Meds if any: NOT Prescribed or Continued at Discharge
--- NOTE | 2017-12-27 16:18 | Surg Short-stay <48hrs Dis Sum ---
Visit Information Visit Dates Admission Date: 12/27/17 Discharge Date: 12/28/17 Surgical Short Stay DC Summary Admission Diagnosis: Right hip painful hardware Final Diagnosis: Same, s/p right hip removal of hardware, exchange of percutaneous pins Procedure(s): Right hip removal of hardware, exchange of percutaneous pins on 12/27/17 Summary/Significant Findings: Patient was admitted to the hospital for an elective right hip removal of hardware and exchange of percutaneous pins with Dr. Reyes. She tolerated the procedure well and was transferred to a general surgical floor in stable condition. She was evaluated and treated by physical therapy. Her diet was advanced and tolerated. She voided spontaneously and her pain was controlled with po meds. At the time of discharge, her vital signs were stable and within normal limits and her neurovascular status was intact. She was deemed appropriate for discharge. Condition at Discharge: Stable Discharge Disposition: SNF Discharge instructions provided to patient/family: Yes Post discharge follow-up plan: Follow up with Dr. Reyes in 2 weeks from date of surgery staple removal around post-op day#14 Copies to: Nasir MAYBERRY,Gustabo Winslow
[2017-12-27 18:00] VITALS: BP 110/60
[2017-12-27 23:15] VITALS: BP 112/60
[2017-12-28 07:32] VITALS: BP 102/54
--- NOTE | 2017-12-28 07:41 | PN- Orthopedic ---
Surgical Brief Attending Note Brief Attending Note: Resting comfortably AVSS RLE - dressing c/d/i A/P POD 1 s/p right hip exchange of hardware She is somewhat confused today as she thinks she's in her sister's house WBAT Check labs ASA for DVT prophylaxis PT D/C to nursing facility when stable
[2017-12-28 11:36] LABS: ABSOLUTE BASOPHIL COUNT 0 /CUMM (0.0-0.2); ABSOLUTE EOSINOPHIL COUNT 0.3 /CUMM (0.0-0.7); ABSOLUTE GRANULOCYTE CT 4.3 /CUMM (1.4-6.5); ABSOLUTE MONOCYTE COUNT 1.1 /CUMM (0.10-0.60); BASOPHIL % 0.3 % (0.0-2.0); EOSINOPHIL % 3.9 % (0-5); GRANULOCYTE % 63.9 % (42.2-75.2); MEAN CORPUSCULAR HGB 30.2 PG (27.0-31.0); MEAN CORPUSCULAR HGB CONC 33.5 G/DL (33.0-37.0); MEAN CORPUSCULAR VOLUME 90.1 FL (81.0-99.0); MEAN PLATELET VOLUME 8.9 FL (7.4-10.4); PLATELET COUNT 231 /CUMM (130-400); RBC DISTRIBUTION WIDTH 13.6 % (11.5-14.5); RED BLOOD CELL CT 3.33 /CUMM (4.20-5.40); WHITE BLOOD CELL COUNT 6.7 /CUMM (4.8-10.8)
--- NOTE | 2017-12-28 13:45 | RADIOLOGY REPORT ---
EXAMINATION: XR HIP, RIGHT CLINICAL INFORMATION: Postop, removal of hardware COMPARISON: Intraoperative radiographs 12/27/2017 TECHNIQUE: Two views of the right hip. FINDINGS: There are postoperative changes including soft tissue gas and skin mandy. 3 cannulated screws are seen transfixing a fracture of the right femoral neck. Previously the screws were not flush with the lateral cortex of the right greater trochanter, as they are now. The right femoral head is normally positioned with respect to the acetabulum. IMPRESSION: Postoperative changes. 3 cannulated screws seen transfixing fracture of the right femoral neck.
[2017-12-28 13:57] VITALS: BP 116/80
[2017-12-28] MEDS ORDERED: TYLENOL325 M1 PO (16:57)
[2017-12-28] MEDS ORDERED: CALCIUM CARBON200 MG PO (16:57)
[2017-12-28] MEDS ORDERED: DOCUSATE SODIU100 M3 PO (16:57)
[2017-12-28] MEDS ORDERED: PERCOCET 5-3251 EACH PO (16:57)
[2017-12-28 17:41] VITALS: BP 116/80
--- NOTE | 2017-12-28 18:50 | PN- Orthopedic ---
Surgical Brief Attending Note Brief Attending Note: I have been called multiple times regarding this patient regarding her discharge to the nursing facility. She is stable to return back to the facility, and keeping her at [facility] is not necessary at this time. She thinks that I had a conversation with her where I told her that she would be there for three days, which I did not. She cannot remember when we had this conversation. This morning when I saw her she thought she was at her sister's house. The change in her enironment, coupled with her medical condition, age, and anesthesia has caused some confusion. Please discharge.
== END 2017-12-28 21:10 | DRG 481 ==
LOC: SDA 01:36 → 2NA 01:36 → EDSTATUS 07:00 → STS 07:00 → SDA 07:00 → ENRESERV 13:23 → ENTRNSPT 14:12 → 2NA 14:47 → CMPTRNSPT 14:58 → ENPENDDIS 12-28 15:55 → 2NA 12-28 21:10
PROVIDERS: Physician Assistant Surgical
PROC: 0QH604Z Insertion of Internal Fixation Device into Right Upper Femur, Open Approach (ICD-10-PCS; principal; 2017-12-27)
PROC: 0QP604Z Removal of Internal Fixation Device from Right Upper Femur, Open Approach (ICD-10-PCS; principal; 2017-12-27)
PROC: 3E0T3BZ Introduction of Anesthetic Agent into Peripheral Nerves and Plexi, Percutaneous Approach (ICD-10-PCS; 2017-12-27)
DX: T84.84XA Pain due to internal orthopedic prosthetic devices, implants and grafts, initial encounter (principal); C85.90 Non-Hodgkin lymphoma, unspecified, unspecified site; I48.2 Chronic atrial fibrillation; I50.9 Heart failure, unspecified; I11.0 Hypertensive heart disease with heart failure; S72.001D Fracture of unspecified part of neck of right femur, subsequent encounter for closed fracture with routine healing; X58.XXXD Exposure to other specified factors, subsequent encounter; I25.10 Atherosclerotic heart disease of native coronary artery without angina pectoris; R41.0 Disorientation, unspecified; Y83.8 Other surgical procedures as the cause of abnormal reaction of the patient, or of later complication, without mention of misadventure at the time of the procedure; K21.9 Gastro-esophageal reflux disease without esophagitis; E03.9 Hypothyroidism, unspecified; G47.30 Sleep apnea, unspecified; Z79.01 Long term (current) use of anticoagulants
CPT/HCPCS: 2NAP; 36415; 36592; 73502-RT; 82436; 97116-GO; 97161-GP; 97530-GO; J2550; J7042

== ENCOUNTER 2018-06-28 09:34 | Inpatient (IN) | payer OTHER, MEDICARE ==
[~2018-06-28] VITALS: Ht 157.5 cm; Wt 52.4 kg
[~2018-06-28 09:34] MED LIST changes: +CALCIUM CARBON200 MG PO; +DOCUSATE SODIU100 M3 PO; +MIRTAZAPINE7.5 M1 PO; +PERCOCET 5-3251 EACH PO; -REMERON15 M2 PO; +TYLENOL325 M1 PO
[2018-06-28] MEDS ORDERED: CELEXA10 M1 PO (09:56)
[2018-06-28] MEDS ORDERED: FUROSEMIDE40 M1 PO (09:57)
[2018-06-28] MEDS ORDERED: METOPROLOL TART25 M1 PO (10:01)
--- NOTE | 2018-06-28 10:01 | ED DYSPNEA/ASTHMA COMPLAINT ---
See Addendum History of Present Illness General Chief Complaint: Dyspnea (COPD, CHF, Other) Stated Complaint: BIBA, DIFF BREATHING Source: patient, EMS Exam Limitations: no limitations Vital Signs & Intake/Output Vital Signs & Intake/Output Vital Signs Date Time Temp Pulse Resp B/P B/P Pulse O2 O2 Flow FiO2 Mean Ox Delivery Rate 06/28 1027 86 20 98 Nasal 1.0L Cannula 06/28 1000 98 Nasal 1.0L Cannula 06/28 0939 96.2 83 20 149/71 91 Nasal 2.0L Cannula Allergies Coded Allergies: Penicillins (RASH 12/16/16) acetaminophen (BURNING FEELING IN STOMACH 12/16/16) adhesive tape (UNKNOWN 12/26/17) ADHESIVE TAPE PER ANTIBIOTIC ORDER SHEET OF 12/26/17 (SJS) animal dander (PER 01/14/17) latex (SORES 12/16/16) mold (UNKNOWN 12/16/16) Sulfa (Sulfonamide Antibiotics) (GI 12/16/16) aspirin (MILD GI 12/16/16) diazepam (GI 12/16/16) oxycodone (GI, MIGRAINE 12/16/16) propoxyphene (GI 12/16/16) Uncoded Allergies: COLOGNE (PER PT UPSETS HER WITH THE SMELL 10/17/16) HAIR SPRAY (PER PT UPSETS HER WITH THE SMELL 10/17/16) SMOKE (PER PT CANT STAND SMELLS IT UPSETS HER 10/17/16) TOBACCO (PER 01/14/17) Reconcile Medications Acetaminophen (Tylenol) 325 MG TABLET 650 MG PO Q6P PRN PAIN 1-3 TEMP GREATER THAN 101 Calcium Carbonate 200 MG CALCIUM (500 MG) TAB.CHEW 500 MG PO Q4-6 PRN PRN HEARTBURN Cholecalciferol (Vitamin D3) (Vitamin D3) 5,000 UNIT TABLET 1 TAB PO DAILY SUPPLEMENT (Reported) Citalopram Hydrobromide (Celexa) 10 MG TABLET 0.5 TAB PO DAILY MENTAL HEALTH (Reported) Cyanocobalamin (Vitamin B-12) (Cyanocobalamin Injection) 1,000 MCG/1 ML VIAL 1 ML IM Q30D SUPPLEMENT (Reported) Reason to Stop at ADM: monthly Cyclobenzaprine HCl 5 MG TABLET 1 TAB PO DAILY SPASM (Reported) Diltiazem HCl (Cardizem) 30 MG TABLET 30 MG PO BID heart Docusate Sodium 100 MG CAPSULE 100 MG PO BID PRN CONSTIPATION Estradiol (Climara) 0.0375 MG/24 HOUR PATCH.TDWK 1 PATCH TOP Mo HRT (Reported ) Reason to Stop at ADM: not needed in hospital Furosemide 40 MG TABLET 1 TAB PO DAILY WATER RETENTION (Reported) Levothyroxine Sodium (Synthroid) 125 MCG TABLET 1 TAB PO DAILY AC THYROID ( Reported) Metoprolol Tartrate 25 MG TABLET 0.5 TAB PO BID HEART (Reported) Mirabegron (Myrbetriq) 25 MG TAB.ER.24H 1 TAB PO DAILY BLADDER (Reported) Mirtazapine 7.5 MG TABLET 1 TAB PO QPM SLEEP (Reported) Multivitamin (Multiple Vitamins) 1 EACH TABLET 1 TAB PO DAILY SUPPLEMENT ( Reported) Oxycodone HCl/Acetaminophen (Percocet 5-325 MG Tablet) 5 MG-325 MG TABLET 1-2 TAB PO Q4-6 PRN PRN pain control tylenol alternatively but not in combination Pantoprazole Sodium (Protonix) 40 MG TABLET.DR 1 TAB PO BID GI (Reported) Potassium Chloride (Klor-Con M20) 20 MEQ TAB.ER.PRT 40 MEQ PO DAILY SUPPLEMENT Rivaroxaban (Xarelto) 15 MG TABLET 1 TAB PO 1700 BLOOD THINNER (Reported) Tiotropium [place] (Spiriva) 18 MCG CAP.W.DEV 1 CAP INH DAILY BREATHING PROBLEMS (Reported) Triage Note: PT BIBA FROM ECF FOR C/O SOB AND CHEST TIGHTNESS WITH WAKING. PT WAS GIVEN SL NITRO AND PO ATIVAN BY ECF TO TREAT C/P AND ANXIETY. PT HAD NO RELIEF. PT ARRIVES TO ED A/OX3. PT RECIEVED DUONEB BY EMS WITH SOME RELIEF. PT DENIES PAIN, C/P AT THIS TIME. AWAITING PROVIDER EVAL. Triage Nurses Notes Reviewed? yes Onset: Abrupt Duration: day(s): (1), constant, continues in ED Timing: recent history Severity: mild, moderate Activities at Onset: rest, sleep Prior Episodes/Possible Cause: frequent episodes Associated Symptoms: anxiety, chest pain, wheezing, weakness LMP (ages 10-50): post menopausal, unknown : No Patient currently breastfeeds: No HPI: 87 year old female hx of chf, copd, cad, afib, anxiety, asthma presents for eval of cough, chest tightness and sob. Symptoms started this monring and woke her from sleep. she is from a snf. cough is productive of yellow sputum. she is on 2 liter nc at baseline. ems arrived to find pt satting 89% on 2 liters. they adminstered s/l nitro and .25 of ativan without relief. she was also given a duo neb with some relief of pallavi sob and tighthness. no fever or hemoptysis. no lower extrmeity edema. she is taking 40mg PO lasix. no n/v/d abdominal pain, dizzy. mental status is at baseline. (Dany Khoury) Past History Travel History Traveled to [place] past 21 day No Medical History Any Pertinent Medical History? see below for history Neurological: syncope EENT: submandibular masses Cardiovascular: AFIB, CAD (s/p stent), CHF, diastolic CHF, rheumatic fever Respiratory: asthma, COPD, obstructive sleep apnea Gastrointestinal: GERD, DIVERTICULOSIS Hepatic: NONE Renal: kidney stones Musculoskeletal: osteoarthritis, sciatica, chondrocalcinosis Psychiatric: anxiety Endocrine: hypothyroidism Blood Disorders: PERNICIOUS ANEMIA B12 deficiency Cancer(s): non-hodgkin lymphoma, CHEMO INJECTION GIVEN FIELD SERVICES MANAGER/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 hip percutaneous pinning Psychosocial History Who do you live with Patient/Self Services at Home Home Health Aide, Nursing What is your primary language Divehi Tobacco Use: Quit >30 days ago ETOH Use: denies use Illicit Drug Use: denies illicit drug use Family History Family History, If Any: MOTHER (hypertension, coronary artery disease and stroke). Relation not specified for: FH: coronary artery disease FH: hypertension FH: stroke Hx Contributory? No (Dany Khoury) Review of Systems Review of Systems Constitutional: Reports: no symptoms. EENTM: Reports: no symptoms. Respiratory: Reports: see HPI, cough, short of breath, sputum production, wheezing. Cardiovascular: Reports: see HPI, chest pain. GI: Reports: no symptoms. Genitourinary: Reports: no symptoms. Musculoskeletal: Reports: no symptoms. Skin: Reports: no symptoms. Neurological/Psychological: Reports: no symptoms. Hematologic/Endocrine: Reports: no symptoms. Immunologic/Allergic: Reports: no symptoms. All Other Systems: Reviewed and Negative (Dany Khoury) Physical Exam Physical Exam General Appearance: well developed/nourished, no apparent distress, alert, awake , anxious Head: atraumatic, normal appearance Eyes: Bilateral: normal appearance, PERRL, EOMI. Ears, Nose, Throat: normal pharynx, normal ENT inspection, hearing grossly normal Neck: normal inspection, supple, full range of motion Respiratory: chest non-tender, decreased breath sounds, crackles, respiratory distress Cardiovascular: normal peripheral pulses, irregularly irregular Peripheral Pulses: 2+ radial (R), 2+ radial (L) Gastrointestinal: soft, non-tender Extremities: normal inspection, normal range of motion, no edema Neurologic/Psych: no motor/sensory deficits, awake, alert, oriented x 3 Skin: intact, normal color, warm/dry Lymphatic: no anterior cervical gustabo Core Measures ACS in differential dx? No CVA/TIA Diagnosis No Sepsis Present: No Sepsis Focused Exam Completed? No (Dany Khoury) Progress Differential Diagnosis: asthma, AMI, bronchitis, CHF, COPD, pericarditis, pulmonary embolism, pneumonia, pneumothorax, unstable angina Plan of Care: Orders Procedure Date/time Status Heart Healthy Diet 06/28 D Active ED Holding Orders 06/28 1214 Active Admit to inpatient 06/28 1214 Active Vital Signs 06/28 1214 Active Code Status 06/28 1214 Active BLOOD CULTURE 06/28 1054 Active Add-on Test (ER Only) 06/28 1001 Active PARTIAL THROMBOPLASTIN TIME 06/28 0944 Complete PROTHROMBIN TIME 06/28 0944 Complete D-DIMER 06/28 0944 Complete URINALYSIS 06/28 0937 Active TROPONIN LEVEL 06/28 0937 Complete COMPREHENSIVE METABOLIC PANEL 06/28 0937 Complete CBC WITHOUT DIFFERENTIAL 06/28 0937 Complete B-TYPE NATRIURETIC PEP (BNP) 06/28 0937 Complete EKG 06/28 0937 Active Laboratory Tests 06/28/18 1001: Anion Gap 8, Estimated GFR 47 L, BUN/Creatinine Ratio 25.5 H, Glucose 113 H, Calcium 8.9, Total Bilirubin 0.6, AST 31, ALT 31, Alkaline Phosphatase 142 H, Troponin I < 0.01, Mbh-J-Bvevzoddarr Pept 4630 H, Total Protein 7.0, Albumin 3.7, Globulin 3.3, Albumin/Globulin Ratio 1.1, PT 20.1 H, INR 1.83 H, APTT 39 H, D-Dimer High Sensitivty < 200, CBC w Diff NO MAN DIFF REQ, RBC 3.52 L, MCV 89.3, MCH 30.1, MCHC 33.7, RDW 13.9, MPV 8.1, Gran % 67.7, Lymphocytes % 16.9 L , Monocytes % 11.5 H, Eosinophils % 3.6, Basophils % 0.3, Absolute Granulocytes 4.9, Absolute Lymphocytes 1.2, Absolute Monocytes 0.8 H, Absolute Eosinophils 0.3, Absolute Basophils 0 06/28/18 0944: Irw-V-Fttfumhwtxm Pept Cancelled Microbiology 06/28 1130 BLOOD: Blood Culture - RECD 06/28 1115 BLOOD: Blood Culture - RECD pt is here for eval of sob chest tightness and cough. she arrives on 2 liter n/c satting low 90s mild resp distress. crackles and decreased breath sounds. labs chest x-ray ordered. pt is recivibng a duo neb from ems. labs are significant for negatvei trop and d-dimer. bnp is 4500 up 1000 from a few days ago. chest x-ray shows edema and possibel infiltrate. 40 of iv lasix and azithro and rocephin started. case discussed with dr rosenberg who feel the pt needs admission for iv diuresis. pt admitted to tele by dr mcdaniel. she will require serial labsm eks, cardiology iv lasix, iv antibiotics strict i/o, tele. dr mcdaniel spoke with hopsitalist. Diagnostic Imaging: Viewed by Me: Radiology Read. Discussed w/RAD: Radiology Read. CXR Impression: PATIENT: ESME CARIAS PRESENT AGE: 87 PATIENT ACCOUNT NO: [id number] : [birth year] LOCATION: [facility] ORDERING PHYSICIAN: Dany GARCIA SERVICE DATE: 06/28/18 EXAM TYPE: RAD - XRY- PORTABLE CHEST XRAY EXAMINATION: XR PORTABLE CHEST CLINICAL INFORMATION: Chest pain and shortness of breath. COMPARISON: 03/07/2017. TECHNIQUE: Portable frontal view of the chest was obtained. FINDINGS: The right subclavian port has been removed. The cardiac silhouette is enlarged. There is central vascular congestion and mild interstitial edema. Patchy airspace opacity at the left lung base. No significant effusion. IMPRESSION: Enlarged cardiac silhouette with central vascular congestion and mild interstitial edema consistent with congestive heart failure. Patchy airspace opacity left lung base may reflect alveolar edema or superimposed pneumonia. DICTATED BY: Collin Art MD DATE/ TIME DICTATED:06/28/181033 TELEGRAPH DISPATCHER:BALDEMAR DATE/TIME TRANSCRIBED: 06/28/181033 Initial ED EKG: AFIB (RATE 85), NONSPECIFIC IVCD (Dany Khoury) Departure Departure Disposition: STILL A PATIENT Condition: Stable Clinical Impression Primary Impression: Congestive heart failure Qualifiers: Heart failure type: unspecified Heart failure chronicity: acute Qualified Code: I50.9 - Heart failure, unspecified Secondary Impressions: Pneumonia Qualifiers: Pneumonia type: due to unspecified organism Laterality: left Lung location: lower lobe of lung Qualified Code: J18.1 - Lobar pneumonia, unspecified organism Referrals: Gustabo Best MD (PCP/Family) Departure Forms: Customer Survey General Discharge Information Admission Note Spoke With: Denilson MAYBERRY,Manuel Documentation of Exam: Documentation of any treatments & extenuating circumstances including Concerns Regarding Discharge (functional status, medication knowledge or non-compliance, living conditions, etc.) that warrant an admission rather than observation: [ serial labsm eks, cardiology iv lasix, iv antibiotics strict i/o, tel, echo] (Dany Khoury) Admission Note Documentation of Exam: Documentation of any treatments & extenuating circumstances including Concerns Regarding Discharge (functional status, medication knowledge or non-compliance, living conditions, etc.) that warrant an admission rather than observation: [ Discussed with Dr. Oreilly, the patient will need cardiology consultation, IV diuresis, IV antibiotics, follow-up chest x-ray, telemetry monitoring, serial enzymes] PA/COMMERCIAL CREDIT OFFICER Co-Sign Statement Statement: ED Attending supervision documentation- [X] I saw and evaluated the patient. I have also reviewed all the pertinent lab results and diagnostic results. I agree with the findings and the plan of care as documented in the PA's/COMMERCIAL CREDIT OFFICER's documentation. [X] I have reviewed the ED Record and agree with the PA's/COMMERCIAL CREDIT OFFICER's documentation. [] Additions or exceptions (if any) to the PAs/COMMERCIAL CREDIT OFFICER's note and plan are summarized below: [SEEAOVE NOTE] (Alfie MAYBERRY,Pa Lucero) Critical Care Note Critical Care Note Critical Care Time: 75-104 min (Brennon GARCIA,Dany)
[2018-06-28 10:11] LABS: ABSOLUTE BASOPHIL COUNT 0 /CUMM (0.0-0.2); ABSOLUTE EOSINOPHIL COUNT 0.3 /CUMM (0.0-0.7); ABSOLUTE GRANULOCYTE CT 4.9 /CUMM (1.4-6.5); ABSOLUTE LYMPH COUNT 1.2 /CUMM (1.2-3.4); ABSOLUTE MONOCYTE COUNT 0.8 /CUMM (0.10-0.60); BASOPHIL % 0.3 % (0.0-2.0); EOSINOPHIL % 3.6 % (0-5); GRANULOCYTE % 67.7 % (42.2-75.2); HEMATOCRIT 31.4 % (37-47); MEAN CORPUSCULAR HGB 30.1 PG (27.0-31.0); MEAN CORPUSCULAR HGB CONC 33.7 G/DL (33.0-37.0); MEAN CORPUSCULAR VOLUME 89.3 FL (81.0-99.0); MEAN PLATELET VOLUME 8.1 FL (7.4-10.4); PLATELET COUNT 239 /CUMM (130-400); RBC DISTRIBUTION WIDTH 13.9 % (11.5-14.5); RED BLOOD CELL CT 3.52 /CUMM (4.20-5.40); WHITE BLOOD CELL COUNT 7.2 /CUMM (4.8-10.8)
[2018-06-28 10:22] LABS: PT 20.1 SEC (9.4-12.5); PTT 39 SEC (25-37)
--- NOTE | 2018-06-28 10:41 | RADIOLOGY REPORT ---
EXAMINATION: XR PORTABLE CHEST CLINICAL INFORMATION: Chest pain and shortness of breath. COMPARISON: 03/07/2017. TECHNIQUE: Portable frontal view of the chest was obtained. FINDINGS: The right subclavian port has been removed. The cardiac silhouette is enlarged. There is central vascular congestion and mild interstitial edema. Patchy airspace opacity at the left lung base. No significant effusion. IMPRESSION: Enlarged cardiac silhouette with central vascular congestion and mild interstitial edema consistent with congestive heart failure. Patchy airspace opacity left lung base may reflect alveolar edema or superimposed pneumonia.
--- NOTE | 2018-06-28 12:04 | CT SCAN REPORT ---
EXAMINATION: CT CHEST WITHOUT CONTRAST CLINICAL INFORMATION: Pneumonia, edema. COMPARISON: Chest x-ray 06/28/2018. CT chest 03/01/2017. TECHNIQUE: Multidetector volumetric CT imaging of the chest was done. Axial MIP volume rendering provided. Sagittal and coronal reformatted images were obtained. DLP: 194 mGy-cm FINDINGS: LUNGS: Diffuse groundglass disease and smooth interstitial thickening consistent with interstitial and alveolar edema. No consolidation with air bronchograms to suggest a superimposed pneumonia. MEDIASTINUM: Cardiomegaly. Mitral valve calcification. Coronary artery calcification. No pericardial effusion. PLEURA: Small bilateral pleural effusions. AXILLA: No lymphadenopathy. UPPER ABDOMEN: Unremarkable. OSSEOUS STRUCTURES: Mild degenerative changes in the thoracic spine. IMPRESSION: Cardiomegaly, interstitial and alveolar pulmonary edema, and small bilateral pleural effusions consistent with congestive heart failure. No convincing evidence of pneumonia.
--- NOTE | 2018-06-28 13:22 | History & Physical ---
Vesna Alvarenga MD 06/28/18 1322: General Information and HPI MD Statement: I have seen and personally examined ESME CARIAS and documented this H& P. The patient is a 87 year old F who presented with a patient stated chief complaint of shortness of breath, chest tightness, cough productive for yellow sputum Source of Information: patient, old records, EMS, W[facility] Exam Limitations: no limitations History of Present Illness: This is an 87-year-old female with a past medical history significant for diastolic CHF, COPD on 2 L of home oxygen as needed, coronary artery disease status post stenting, A. fib on diltiazem and Xarelto, GERD, KERLINE not on CPAP, anxiety, asthma, non-Hodgkin's lymphoma status post chemotherapy with Dr. Florentino , that is brought in by ambulance from her extended care facility, [facility] for complaints of shortness of breath, chest tightness, cough productive for yellow sputum since this morning. The patient had been at her baseline until this morning when, while breakfast is being prepared for her, she became increasingly short of breath. The patient is usually on 2 L nasal cannula baseline oxygen as needed. At the ECF she was given sublingual nitro and p.o. Ativan with no relief. EMS arrived to find the patient satting 89% on 2 L. They administered DuoNeb which did help and the patient's saturations climbed to the low 90s. She was noted to have crackles and decreased breath sounds in all lung mohan. The patient has been admitted here before for COPD/CHF exacerbation. The patient is alert and oriented 3 and denies any preceding symptoms in the days leading up to this exacerbation. She denies any headache, recent falls, dysuria, cough prior to this morning, nausea, vomiting, diarrhea, constipation. The patient follows up with Dr. Chavarria for her COPD but notes that she has not seen him in about 10 months. The patient's last echocardiogram was done in 2015 and showed a normal EF of 65% , moderate MR with moderate mitral annular calcification, mild to moderate tricuspid regurgitation, moderate to severe pulmonary hypertension. Her software project lead is Dr. Neal. 1.5 years ago the patient had a fall when she was living at her assisted living facility [place]. She subsequently underwent hip replacement. The patient was last here in December for elective right hip exchange of hardware after she had continued pain status post hip replacement. After this the patient was sent to [facility]. The patient denies any history of smoking, drugs, alcohol. The patient normally ambulates with a walker. Allergies/Medications Allergies: Coded Allergies: Penicillins (RASH 12/16/16) acetaminophen (BURNING FEELING IN STOMACH 12/16/16) adhesive tape (UNKNOWN 12/26/17) ADHESIVE TAPE PER ANTIBIOTIC ORDER SHEET OF 12/26/17 (SJS) animal dander (PER 01/14/17) latex (SORES 12/16/16) mold (UNKNOWN 12/16/16) Sulfa (Sulfonamide Antibiotics) (GI 12/16/16) aspirin (MILD GI 12/16/16) diazepam (GI 12/16/16) oxycodone (GI, MIGRAINE 12/16/16) propoxyphene (GI 12/16/16) Uncoded Allergies: COLOGNE (PER PT UPSETS HER WITH THE SMELL 10/17/16) HAIR SPRAY (PER PT UPSETS HER WITH THE SMELL 10/17/16) SMOKE (PER PT CANT STAND SMELLS IT UPSETS HER 10/17/16) TOBACCO (PER 01/14/17) Home Med list Acetaminophen (Tylenol) 325 MG TABLET 650 MG PO Q6P PRN PAIN 1-3 TEMP GREATER THAN 101 Calcium Carbonate 200 MG CALCIUM (500 MG) TAB.CHEW 500 MG PO Q4-6 PRN PRN HEARTBURN Cholecalciferol (Vitamin D3) (Vitamin D3) 5,000 UNIT TABLET 1 TAB PO DAILY SUPPLEMENT (Reported) Citalopram Hydrobromide (Celexa) 10 MG TABLET 0.5 TAB PO DAILY MENTAL HEALTH (Reported) Cyanocobalamin (Vitamin B-12) (Cyanocobalamin Injection) 1,000 MCG/1 ML VIAL 1 ML IM Q30D SUPPLEMENT (Reported) Reason to Stop at ADM: monthly Cyclobenzaprine HCl 5 MG TABLET 1 TAB PO DAILY SPASM (Reported) Diltiazem HCl (Cardizem) 30 MG TABLET 30 MG PO BID heart Docusate Sodium 100 MG CAPSULE 100 MG PO BID PRN CONSTIPATION Estradiol (Climara) 0.0375 MG/24 HOUR PATCH.TDWK 1 PATCH TOP Mo HRT (Reported ) Reason to Stop at ADM: not needed in hospital Furosemide 40 MG TABLET 1 TAB PO DAILY WATER RETENTION (Reported) Levothyroxine Sodium (Synthroid) 125 MCG TABLET 1 TAB PO DAILY AC THYROID ( Reported) Metoprolol Tartrate 25 MG TABLET 0.5 TAB PO BID HEART (Reported) Mirabegron (Myrbetriq) 25 MG TAB.ER.24H 1 TAB PO DAILY BLADDER (Reported) Mirtazapine 7.5 MG TABLET 1 TAB PO QPM SLEEP (Reported) Multivitamin (Multiple Vitamins) 1 EACH TABLET 1 TAB PO DAILY SUPPLEMENT ( Reported) Oxycodone HCl/Acetaminophen (Percocet 5-325 MG Tablet) 5 MG-325 MG TABLET 1-2 TAB PO Q4-6 PRN PRN pain control tylenol alternatively but not in combination Pantoprazole Sodium (Protonix) 40 MG TABLET.DR 1 TAB PO BID GI (Reported) Potassium Chloride (Klor-Con M20) 20 MEQ TAB.ER.PRT 40 MEQ PO DAILY SUPPLEMENT Rivaroxaban (Xarelto) 15 MG TABLET 1 TAB PO 1700 BLOOD THINNER (Reported) Tiotropium [place] (Spiriva) 18 MCG CAP.W.DEV 1 CAP INH DAILY BREATHING PROBLEMS (Reported) Compliance With Home Meds: GOOD Past History Travel History Traveled to [place] past 21 day No Medical History Neurological: syncope EENT: submandibular masses Cardiovascular: AFIB, CAD (s/p stent), CHF, diastolic CHF, rheumatic fever Respiratory: asthma, COPD, obstructive sleep apnea Gastrointestinal: GERD, DIVERTICULOSIS Hepatic: NONE Renal: kidney stones Musculoskeletal: osteoarthritis, sciatica, chondrocalcinosis Psychiatric: anxiety Endocrine: hypothyroidism Blood Disorders: PERNICIOUS ANEMIA B12 deficiency Cancer(s): non-hodgkin lymphoma, 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 hip percutaneous pinning Past Family/Social History Family History Relations & Conditions if any MOTHER (hypertension, coronary artery disease and stroke). Relation not specified for: FH: coronary artery disease FH: hypertension FH: stroke Psychosocial History Services at Home: Home Health Aide, Nursing Primary Language: [place] Smoking Status: Never Smoked ETOH Use: denies use Illicit Drug Use: denies illicit drug use Living Will? no Power of High Wire Artist/HCP? yes Name of POA/HCP: Pt's son, Juliocesar Carias. Functional Ability ADLs Independent: dressing, eating, toileting, bathing. Ambulation: independent IADLs Independent: shopping, housework, finances, food prep, telephone, transportation , medication admin. Review of Systems Review of Systems Constitutional: Reports: no symptoms. EENTM: Reports: no symptoms. Cardiovascular: Reports: chest pain. Respiratory: Reports: cough, short of breath. GI: Reports: abdominal pain. Genitourinary: Reports: no symptoms. Musculoskeletal: Reports: no symptoms. Skin: Reports: no symptoms. Neurological/Psychological: Reports: no symptoms. Hematologic/Endocrine: Reports: no symptoms. Immunologic/Allergic: Reports: no symptoms. Exam & Diagnostic Data Last 24 Hrs of Vital Signs/I&O Vital Signs Date Time Temp Pulse Resp B/P B/P Pulse O2 O2 Flow FiO2 Mean Ox Delivery Rate 06/28 1722 97.5 74 16 116/52 97 Nasal 2.0L Cannula 06/28 1545 98 Nasal 1.0L Cannula 06/28 1441 98.6 76 18 114/84 98 Nasal 1.0L Cannula 06/28 1248 98.6 76 18 119/56 98 Nasal 1.0L Cannula 06/28 1027 86 20 98 Nasal 1.0L Cannula 06/28 1000 98 Nasal 1.0L Cannula 06/28 0939 96.2 83 20 149/71 91 Nasal 2.0L Cannula Intake & Output 06/28 1600 06/28 0800 06/28 0000 Intake Total Output Total 1600 Balance -1600 Output, Urine 1600 Patient 110 lb Weight Weight Estimated Measurement Method Physical Exam General Appearance Alert, Oriented X3, Cooperative, No Acute Distress Skin No Rashes, No Breakdown, No Significant Lesion Skin Temp/Moisture Exam: Warm/Dry Sepsis Skin Exam (color): Normal for Ethnicity HEENT Atraumatic, PERRLA, EOMI, Mucous Membr. moist/pink Cardiovascular Normal S1, Normal S2, No Murmurs Lungs Normal Air Movement, SCATTERED CRACKLES Abdomen Normal Bowel Sounds, Soft, MILD TENDERNESS TO DEEP PALPATION IN EPIGASTRUM Neurological Normal Speech Extremities No Clubbing, No Cyanosis, Normal Pulses Vascular Normal Pulses, Pulses Symmetrical Last 24 Hrs of Labs/Bill: Laboratory Tests 06/28/18 1211: Urine Color YEL, Urine Clarity CLEAR, Urine pH 6.5, Ur Specific Curtis 1.010, Urine Protein NEG, Urine Ketones NEG, Urine Nitrite NEG, Urine Bilirubin NEG, Urine Urobilinogen 0.2, Ur Leukocyte Esterase NEG, Ur Microscopic EXAM NOT REQUIRED, Urine Hemoglobin NEG, Urine Glucose NEG 06/28/18 1001: Anion Gap 8, Estimated GFR 47 L, BUN/Creatinine Ratio 25.5 H, Glucose 113 H, Calcium 8.9, Total Bilirubin 0.6, AST 31, ALT 31, Alkaline Phosphatase 142 H, Troponin I < 0.01, Pyi-H-Uahzdwbihkz Pept 4630 H, Total Protein 7.0, Albumin 3.7, Globulin 3.3, Albumin/Globulin Ratio 1.1, PT 20.1 H, INR 1.83 H, APTT 39 H, D-Dimer High Sensitivty < 200, CBC w Diff NO MAN DIFF REQ, RBC 3.52 L, MCV 89.3, MCH 30.1, MCHC 33.7, RDW 13.9, MPV 8.1, Gran % 67.7, Lymphocytes % 16.9 L , Monocytes % 11.5 H, Eosinophils % 3.6, Basophils % 0.3, Absolute Granulocytes 4.9, Absolute Lymphocytes 1.2, Absolute Monocytes 0.8 H, Absolute Eosinophils 0.3, Absolute Basophils 0 06/28/18 0944: Egq-T-Oaesonmpgjd Pept Cancelled Microbiology 06/28 1130 BLOOD: Blood Culture - RECD 06/28 1115 BLOOD: Blood Culture - RECD Assessment/Plan Assessment: This is an 87-year-old female with a past medical history significant for diastolic CHF, COPD on 2 L of home oxygen as needed, coronary artery disease status post stenting, A. fib on diltiazem and Xarelto, GERD, KERLINE not on CPAP, anxiety, asthma, non-Hodgkin's lymphoma status post chemotherapy with Dr. Florentino , that is brought in by ambulance from her extended care facility, [facility] for complaints of shortness of breath, chest tightness, cough productive for yellow sputum since this morning. The patient had been at her baseline until this morning when, while breakfast is being prepared for her, she became increasingly short of breath. The patient is usually on 2 L nasal cannula baseline oxygen as needed. The patient was noted to have crackles but no wheezing. Her last echocardiogram was done in 2015 and was fairly normal except for moderate to severe pulmonary hypertension. In the ED, the patient's vitals were found to be at baseline and patient was on between 1 and 2 L of oxygen satting at 98%. Her labs showed a chronic anemia with hemoglobin of 10.6, negative troponin, negative d-dimer, a BNP which increased from 1000 a few days ago to 4500 here, INR of 1.83, creatinine 1.1 with GFR 47 which has been her baseline for about a year. Chest x-ray showed evidence of CHF with patchy opacity in the left lower base. CT of the chest showed evidence of CHF but no pneumonia. An EKG showed A. fib at a rate of 85 with a QTC of 457 and no evidence of ACS. In the ED, the patient got ceftriaxone, azithromycin, 1 dose of Lasix 40 mg IV. Assessment -CHF exacerbation with likely contribution of COPD -Pulmonary hypertension -A. fib -Chronic anemia -History of coronary artery disease -History of non-Hodgkin's lymphoma status post chemotherapy Plan -Admit patient to telemetry for evaluation and cardiac monitoring -Cardiac consult with her software project lead Dr. Neal -Echocardiogram -Hold off antibiotics as there is no evidence of pneumonia on the CT chest -Start Lasix IV 40 mg twice daily -Blood cultures taken in the ED, follow-up -TRC nebs -Follow-up troponins and EKGs 2 -Continue patient's home medications including Xarelto, diltiazem, metoprolol, Remeron, Protonix, potassium supplementation, Synthroid, Flexeril, Celexa Heart healthy diet As per advanced directive, DNR/DNI, no G-tube, yes to IV hydration and hospitalization DVT prophylaxis with Xarelto and Alps As Ranked By This Provider Problem List: 1. Congestive heart failure Qualifiers Heart failure type: unspecified Heart failure chronicity: acute Qualified Code: I50.9 - Heart failure, unspecified Core Measures/Misc (07/29) Acute Coronary Syndrome ACS Diagnosis: No Congestive Heart Failure Congestive Heart Failure Diagnosis No Cerebrovascular Accident CVA/TIA Diagnosis: No VTE (View Protocol) VTE Risk Factors Immobility No Mechanical VTE Prophylaxis d/t N/A MechProphylax Ordered No VTE Pharm Prophylaxis d/t NA PharmProphylax ordered Sepsis (View protocol) Sepsis Present: No If YES complete Sepsis Event Note If YES complete Sepsis Event Note Maximino Glynn MD 06/28/18 1528: Core Measures/Misc (07/29) Sepsis (View protocol) If YES complete Sepsis Event Note If YES complete Sepsis Event Note Attending MD Review Statement Attending Statement Attending MD Statement: examined this patient, discuss w/resident/PA/CONTROL PANEL OPERATOR, agreed w/resident/PA/CONTROL PANEL OPERATOR, reviewed EMR data (avail) Attending Assessment/Plan: 87F PMH atrial fibrillation on Xarelto, CAD, HFpEF (EF 65%) with pulmonary HTN, 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 Patient is sleepy and providing minimal history. She reports being comfortable and not short of breath. Her chest pain is mid-sternal and 4/ 10, non-radiating, improved from earlier. Per W10 the patient had positional chest pain, worse when sitting up, and worsening dyspnea. She is volume overloaded by exam, with crackles and mild LE edema. EKG is atrial fibrillation and unchanged from prior. 1. Acute on chronic diastolic CHF 2. Chest pain at rest 3. CKD stage 3A 4. Paroxysmal atrial fibrillation Plan - Admit to telemetry - Lasix 40mg IV BID - I/O, daily weights - Cardiology consult - Continue home medications - Heart healthy diet - Serial troponin and EKG - DVT PPx
[2018-06-28 17:22] VITALS: BP 116/52
[2018-06-28] MEDS ORDERED: PANTOPRAZOLE SO40 M1 PO (17:27)
--- NOTE | 2018-06-28 21:51 | Cons- Cardiology ---
General Information and HPI Consulting Request Date of Consult: 06/28/18 Requested By: Maximino Glynn MD History of Present Illness: Shayna Madrid is an 87 year old female who carries a history of coronary artery disease, atrial fibrillation, and asthma. She was recently diagnosed with a B- call lymphoma and underwent chemotherapy. Metastatses have been noted in her scapula and acetabulum. Malvin was brought to the ER for evaluation of shortness of breath accompanies by chest discomfort and a productive cough. She denied orthopnea or leg swelling. Her chest discomfort has now abated and she is breathing a bit better. Otherwise she denies any lightheadedness or palpitations. Shayna Madrid does feel persistently tired since her diagnosis of Lymphoma and since beginning chemotherapy. The lymphoma also gives her diffuse achiness with pain in her back, epgastric region chest and abdomen. She has also lost weight. At her baseline, Shayna has mild exertional shortness of breath without orthopnea. She will also become transiently lightheaded if arising quickly from a sitting or supine position although this symptom appears to also be exacerbated by turning her head and I think are more consistent with a labyrinthitis. It should be recalled that she had an enlarged salivary gland on the right lower jaw that turned out to be a lymphoma. Her last echocardiogram showed a normal EF of 70% with biatrial enlargement, moderate mitral, tricuspid and pulmonic regurgitation and mild to moderate aortic regurgitation. Her aortic valve showed moderate stenosis. She also had moderate mitral stenosis with mild pulmonary hypertension. Due to prior lightheadedness we discontinued lisinopril and decreased her metoprolol to 50mg BID. Her lightheadedness is improved but not gone. She was last admitted to for evaluation of an atypical chest discomfort and SOB in May 2013. She ruled out for myocardial infarction at that time. Shayna Madrid was very concerned about the possibility of aortic stenosis and therefore she saw Dr. Gustabo Barone who reassured her that she did not have any significant aortic stenosis and did not need any intervention for her aortic valve at this point in time. On occasion, the patient will report some epigastric discomfort radiating up to her chest and she has complained of some atypical nonexertional chest discomfort behind her left breast which often occurs at rest. In consideration of the above symptoms, I did pursue a stress test which showed a small area of apical ischemia. I did opt to pursue cardiac catheterization for an unequivocal diagnosis. This procedure was performed in December of 2012 and showed the following anatomy: The left main demonstrated luminal irregularities. The LAD has a 30% non-flow limiting mid lesion with luminal irregularities throughout the rest of its course. The left circumflex has luminal irregularities in the AV groove as well as in the obtuse marginal II. There is a very small obtuse marginal one with a stable 80% ostial stenosis. The RCA is dominant with luminal irregularities up to 30-40% in the ostial region of this vessel. Left ventriculography showed an overall EF of 60% with mild to moderate mitral regurgitation. It is my feeling that the patient had nonobstructive coronary artery disease and medical therapy has been pursued. The patient's most recent echo shows a normal EF of 60% with mild biatrial enlargement. She ahs moderate eccentric mitral regurgitation, mild tricuspid regurgitation, and mild to moderate aortic insufficiency. Mild pulmonic regurgitation was also noted. Allergies/Medications Allergies: Coded Allergies: Penicillins (RASH 12/16/16) acetaminophen (BURNING FEELING IN STOMACH 12/16/16) adhesive tape (UNKNOWN 12/26/17) ADHESIVE TAPE PER ANTIBIOTIC ORDER SHEET OF 12/26/17 (SJS) animal dander (PER 01/14/17) latex (SORES 12/16/16) mold (UNKNOWN 12/16/16) Sulfa (Sulfonamide Antibiotics) (GI 12/16/16) aspirin (MILD GI 12/16/16) diazepam (GI 12/16/16) oxycodone (GI, MIGRAINE 12/16/16) propoxyphene (GI 12/16/16) Uncoded Allergies: COLOGNE (PER PT UPSETS HER WITH THE SMELL 10/17/16) HAIR SPRAY (PER PT UPSETS HER WITH THE SMELL 10/17/16) SMOKE (PER PT CANT STAND SMELLS IT UPSETS HER 10/17/16) TOBACCO (PER 01/14/17) Home Med List: Acetaminophen (Tylenol) 325 MG TABLET 650 MG PO Q6P PRN PAIN 1-3 TEMP GREATER THAN 101 Calcium Carbonate 200 MG CALCIUM (500 MG) TAB.CHEW 500 MG PO Q4-6 PRN PRN HEARTBURN Cholecalciferol (Vitamin D3) (Vitamin D3) 5,000 UNIT TABLET 1 TAB PO DAILY SUPPLEMENT (Reported) Citalopram Hydrobromide (Celexa) 10 MG TABLET 0.5 TAB PO DAILY MENTAL HEALTH (Reported) Cyanocobalamin (Vitamin B-12) (Cyanocobalamin Injection) 1,000 MCG/1 ML VIAL 1 ML IM Q30D SUPPLEMENT (Reported) Reason to Stop at ADM: monthly Cyclobenzaprine HCl 5 MG TABLET 1 TAB PO DAILY SPASM (Reported) Diltiazem HCl (Cardizem) 30 MG TABLET 30 MG PO BID heart Docusate Sodium 100 MG CAPSULE 100 MG PO BID PRN CONSTIPATION Estradiol (Climara) 0.0375 MG/24 HOUR PATCH.TDWK 1 PATCH TOP Mo HRT (Reported ) Reason to Stop at ADM: not needed in hospital Furosemide 40 MG TABLET 1 TAB PO DAILY WATER RETENTION (Reported) Levothyroxine Sodium (Synthroid) 125 MCG TABLET 1 TAB PO DAILY AC THYROID ( Reported) Metoprolol Tartrate 25 MG TABLET 0.5 TAB PO BID HEART (Reported) Mirabegron (Myrbetriq) 25 MG TAB.ER.24H 1 TAB PO DAILY BLADDER (Reported) Mirtazapine 7.5 MG TABLET 1 TAB PO QPM SLEEP (Reported) Multivitamin (Multiple Vitamins) 1 EACH TABLET 1 TAB PO DAILY SUPPLEMENT ( Reported) Oxycodone HCl/Acetaminophen (Percocet 5-325 MG Tablet) 5 MG-325 MG TABLET 1-2 TAB PO Q4-6 PRN PRN pain control tylenol alternatively but not in combination Pantoprazole Sodium (Protonix) 40 MG TABLET.DR 1 TAB PO BID GI (Reported) Potassium Chloride (Klor-Con M20) 20 MEQ TAB.ER.PRT 40 MEQ PO DAILY SUPPLEMENT Rivaroxaban (Xarelto) 15 MG TABLET 1 TAB PO 1700 BLOOD THINNER (Reported) Tiotropium [place] (Spiriva) 18 MCG CAP.W.DEV 1 CAP INH DAILY BREATHING PROBLEMS (Reported) Review of Systems Review of Systems: A review of systems is unremarkable. 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 hip percutaneous pinning Family History Relations & Conditions If Any: MOTHER (hypertension, coronary artery disease and stroke). Relation not specified for: FH: coronary artery disease FH: hypertension FH: stroke Psychosocial History Where Do You Live? Long Term Facility Services at Home: Home Health Aide, Nursing Primary Language: Tongan Smoking Status: Never Smoked ETOH Use: denies use Illicit Drug Use: denies illicit drug use Living Will? no Power of Special Forces Officer/HCP? yes Name of POA/HCP: Pt's son, Juliocesar Saldana. Functional Ability ADLs Independent: dressing, eating, toileting, bathing. Ambulation: independent IADLs Independent: shopping, housework, finances, food prep, telephone, transportation , medication admin. Exam & Diagnostic Data Vital Signs and I&O Vital Signs Date Time Temp Pulse Resp B/P B/P Pulse O2 O2 Flow FiO2 Mean Ox Delivery Rate 06/28 1722 97.5 74 16 116/52 97 Nasal 2.0L Cannula 06/28 1545 98 Nasal 1.0L Cannula 06/28 1441 98.6 76 18 114/84 98 Nasal 1.0L Cannula 06/28 1248 98.6 76 18 119/56 98 Nasal 1.0L Cannula 06/28 1027 86 20 98 Nasal 1.0L Cannula 06/28 1000 98 Nasal 1.0L Cannula 06/28 0939 96.2 83 20 149/71 91 Nasal 2.0L Cannula Intake & Output 06/28 1600 06/28 0800 06/28 0000 06/27 1600 06/27 0800 06/27 0000 Intake Total Output Total 1600 Balance -1600 Output, Urine 1600 Patient 110 lb Weight Weight Estimated Measurement Method Physical Exam: General: WD/WN female in NAD; alert and oriented x 3 HEENT: NC/AT, PERRL, EOMI Neck: positive JVD Heart: irregularly irregular Lungs: crackles and wheezing noted bilaterally Abdomen: soft, NT, +ve bowel sounds Extremities: no edema Assessment/Plan Assessment/Plan * This patient has evidence of decompensated congestive heart failure. Diurese with Lasix at 40mg IV BID. Add Lisinopril 5mg daily for afterload reduction,. * Obtain and echocardiogram to assess her EF. * check TSH and free T4. * O2 2L by NC. * Continue Xarelto for stroke prophylaxis. Consult Acknowledgment - Thank you for your consult request.
[2018-06-28 22:13] VITALS: BP 120/50
[2018-06-29 06:30] VITALS: BP 100/58
--- NOTE | 2018-06-29 09:39 | PN- Housestaff ---
See Addendum Subjective Follow-up For: CHF exacerbation A. fib Subjective: Patient seen and examined. She states that she feels good. Her vital signs are stable and she is on 1 L of oxygen. She says that her breathing is better and lower extremity edema has gone down. The patient had output of 2 L of urine yesterday. Review of Systems Constitutional: Reports: no symptoms. Cardiovascular: Reports: no symptoms. Respiratory: Reports: no symptoms. Gastrointestinal: Reports: no symptoms. Genitourinary: Reports: no symptoms. Musculoskeletal: Reports: no symptoms. Skin: Reports: no symptoms. Objective Last 24 Hrs of Vital Signs/I&O Vital Signs Date Time Temp Pulse Resp B/P B/P Pulse O2 O2 Flow FiO2 Mean Ox Delivery Rate 06/29 1454 98.0 64 18 100/50 94 Room Air 06/29 1001 Nasal 2.0L Cannula 06/29 0933 77 100/58 06/29 0932 77 100/58 06/29 0932 77 100/58 06/29 0800 97 Nasal 2.0L Cannula 06/29 0630 98.3 60 18 100/58 98 06/28 2346 Nasal 1.0L Cannula 06/28 2225 71 120/50 06/28 2223 71 120/50 06/28 2213 98.1 71 20 120/50 97 Nasal 2.0L Cannula 06/28 1722 97.5 74 16 116/52 97 Nasal 2.0L Cannula 06/28 1545 98 Nasal 1.0L Cannula Intake & Output 06/29 1600 06/29 0800 06/29 0000 Intake Total 120 Output Total 200 400 Balance -80 -400 Intake, Oral 120 Output, Urine 200 400 Patient 118 lb Weight Weight Bed scale Measurement Method Physical Exam General Appearance: Alert, Oriented X3, Cooperative, No Acute Distress Skin: No Rashes Skin Temp/Moisture Exam: Warm/Dry HEENT: Atraumatic, PERRLA, EOMI, Mucous Membr. moist/pink Neck: Supple, No JVD Cardiovascular: Regular Rate, Normal S1, Normal S2 Lungs: Clear to Auscultation Abdomen: Normal Bowel Sounds, Soft, No Tenderness, No Hepatospenomegaly, No Masses Neurological: Normal Speech Extremities: No Clubbing, No Cyanosis, No Edema Vascular: Normal Pulses, Pulses Symmetrical Current Medications: Current Medications Sig/Timi Start time Last Medication Dose Route Stop Time Status Admin Calcium Carbonate 500 MG Q4-6 PRN PRN 06/28 1730 AC PO Cholecalciferol 4,000 IU DAILY 06/28 1719 AC 06/29 PO 0932 Citalopram 5 MG DAILY 06/28 1720 AC 06/29 Hydrobromide PO 0932 Cyclobenzaprine HCl 5 MG DAILY 06/28 1720 AC 06/29 PO 0933 Diltiazem HCl 30 MG BID 06/28 2100 AC 06/29 PO 0932 Docusate Sodium 100 MG BID PRN 06/28 1730 AC PO Enoxaparin Sodium 40 MG DAILY 06/28 1713 DC 06/28 SC 2000 Furosemide 40 MG 7:30 AM, & 4:30 PM 06/28 1745 AC 06/29 IV 0932 Levothyroxine Sodium 0.125 MG DAILY AC 06/28 1726 AC 06/29 PO 0603 Lisinopril 5 MG DAILY 06/29 0900 AC 06/29 PO 0932 Metoprolol Tartrate 12.5 MG BID 06/28 2100 AC 06/29 PO 0933 Mirtazapine 7.5 MG QPM 06/28 2100 AC 06/28 PO 2015 Multivitamins 1 TAB DAILY 06/28 1727 AC 06/29 Therapeutic PO 0932 Omeprazole 40 MG DAILY AC 06/29 0700 AC 06/29 PO 0603 Potassium Chloride 40 MEQ DAILY 06/28 1728 AC 06/29 PO 0933 Rivaroxaban 15 MG 1700 06/28 1745 AC 06/28 PO 2224 Last 24 Hrs of Lab/Bill Results Last 24 Hrs of Labs/Mics: Laboratory Tests 06/29/18 0640: Anion Gap 7, Estimated GFR 47 L, BUN/Creatinine Ratio 20.9 06/28/18 2330: Troponin I < 0.01 06/28/18 1750: Troponin I < 0.01 Assessment/Plan Assessment: This is an 87-year-old female with a past medical history significant for diastolic CHF, COPD on 2 L of home oxygen as needed, coronary artery disease status post stenting, A. fib on diltiazem and Xarelto, GERD, KERLINE not on CPAP, anxiety, asthma, non-Hodgkin's lymphoma status post chemotherapy with Dr. Florentino , that is brought in by ambulance from her extended care facility, [facility] for complaints of shortness of breath, chest tightness, cough productive for yellow sputum since this morning. The patient had been at her baseline until this morning when, while breakfast is being prepared for her, she became increasingly short of breath. The patient is usually on 2 L nasal cannula baseline oxygen as needed. The patient was noted to have crackles but no wheezing. Her last echocardiogram was done in 2015 and was fairly normal except for moderate to severe pulmonary hypertension. In the ED, the patient's vitals were found to be at baseline and patient was on between 1 and 2 L of oxygen satting at 98%. Her labs showed a chronic anemia with hemoglobin of 10.6, negative troponin, negative d-dimer, a BNP which increased from 1000 a few days ago to 4500 here, INR of 1.83, creatinine 1.1 with GFR 47 which has been her baseline for about a year. Chest x-ray showed evidence of CHF with patchy opacity in the left lower base. CT of the chest showed evidence of CHF but no pneumonia. An EKG showed A. fib at a rate of 85 with a QTC of 457 and no evidence of ACS. In the ED, the patient got ceftriaxone, azithromycin, 1 dose of Lasix 40 mg IV. Assessment -CHF exacerbation with likely contribution of COPD -Pulmonary hypertension -A. fib -Chronic anemia -History of coronary artery disease -History of non-Hodgkin's lymphoma status post chemotherapy Plan -Admitted patient to telemetry for evaluation and cardiac monitoring -Cardiac consult with her amphibious operations officer Dr. Neal -As per suggestions last night, lisinopril 5 mg was added for afterload reduction -Echocardiogram is pending -TSH was found to be 7.37 with a normal free T4 level. Patient is on Synthroid and we continued her on that. -Hold off antibiotics as there is no evidence of pneumonia on the CT chest -Continue Lasix 40 mg twice a day IV for now, continue potassium the patient takes outpatient, and strict I's and O's -Blood cultures taken in the ED, follow-up -[facility] nebs -Opponens and EKGs are negative for ACS, all show continued A. 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 -Continue patient's home medications including Xarelto, diltiazem, metoprolol, Remeron, Protonix, Flexeril, Celexa Heart healthy diet As per advanced directive, DNR/DNI, no G-tube, yes to IV hydration and hospitalization DVT prophylaxis with Xarelto and Alps Problem List: 1. Congestive heart failure Pain Ratin Pain Location: na Pain Goal: Remain pain free Pain Plan: na Tomorrow's Labs & Rationales: none
[2018-06-29] MEDS ORDERED: LISINOPRIL5 M1 PO (13:22)
--- NOTE | 2018-06-29 13:23 | Patient Discharge Instructions ---
Discharge Instructions General Discharge Information You were seen/treated for: CHF EXACERBATION Special Instructions: PLEASE FOLLOW UP WITH PCP IN ONE WEEK PLEASE FOLLOW UP WITH CARDIOLOGY IN ONE WEEK Diet Continue normal diet: Yes Recommended Diet: Regular no added salt Activity Full Activity/No Limits: Yes Acute Coronary Syndrome Inclusion Criteria At DC or during hospital stay patient has or had the following: ACS DIAGNOSIS No Discharge Core Measures Meds if any: Prescribed or Continued at Discharge Meds if any: NOT Prescribed or Continued at Discharge Congestive Heart Failure Inclusion Criteria At DC or during hospital stay patient has or had the following: CHF DIAGNOSIS No Discharge Core Measures Meds if any: Prescribed or Continued at Discharge Meds if any: NOT Prescribed or Continued at Discharge Cerebrovascular accident Inclusion Criteria At DC or during hospital stay patient has or had the following: CVA/TIA Diagnosis No Discharge Core Measures Meds if any: Prescribed or Continued at Discharge Meds if any: NOT Prescribed or Continued at Discharge Venous thromboembolism Inclusion Criteria VTE Diagnosis No VTE Type NONE VTE Confirmed by (Test) NONE Discharge Core Measures - Per Current guidelines, there needs to be overlap - treatment for the first 5 days of Warfarin therapy. - If discharged on Warfarin prior to 5 days of - overlap therapy, the patient will need to be - assessed for post discharge needs including - *Post discharge parental anticoagulation - *Warfarin and/or parental anticoagulation education - *Follow up date to check INR post discharge At least 5 days overlap therapy as Inpatient No Meds if any: Prescribed or Continued at Discharge Note: Overlap Therapy is Warfarin and Anticoagulant Meds if any: NOT Prescribed or Continued at Discharge
--- NOTE | 2018-06-29 13:58 | PN- Cardiology ---
Subjective Subjective: * Breathing is much improved. No chest discomfort. * atrial fibrillation with good rate control. Objective Vital Signs and I&Os Vital Signs Date Time Temp Pulse Resp B/P B/P Pulse O2 O2 Flow FiO2 Mean Ox Delivery Rate 06/29 1001 Nasal 2.0L Cannula 06/29 0933 77 100/58 06/29 0932 77 100/58 06/29 0932 77 100/58 06/29 0800 97 Nasal 2.0L Cannula 06/29 0630 98.3 60 18 100/58 98 06/28 2346 Nasal 1.0L Cannula 06/28 2225 71 120/50 06/28 2223 71 120/50 06/28 2213 98.1 71 20 120/50 97 Nasal 2.0L Cannula 06/28 1722 97.5 74 16 116/52 97 Nasal 2.0L Cannula 06/28 1545 98 Nasal 1.0L Cannula 06/28 1441 98.6 76 18 114/84 98 Nasal 1.0L Cannula Intake & Output 06/29 1600 06/29 0800 06/29 0000 06/28 1600 06/28 0800 06/28 0000 Intake Total 120 Output Total 072 216 6999 Balance -80 -400 -1600 Intake, Oral 120 Output, Urine 471 306 1273 Patient 118 lb 110 lb Weight Weight Bed scale Estimated Measurement Method Physical Exam: General: WD/WN female in NAD; alert and oriented x 3 HEENT: NC/AT, PERRL, EOMI Neck: positive JVD Heart: irregularly irregular Lungs: crackles at bases bilaterally Abdomen: soft, NT, +ve bowel sounds Extremities: no edema Assessment/Plan Assessment/Plan * This patient has evidence of decompensated congestive heart failure and although improved continues to have some lung crackles. Continue diuresus with Lasix at 40mg IV BID. Continue Lisinopril 5mg daily for afterload reduction,. * Obtain and echocardiogram to assess her EF. * Continue Xarelto for stroke prophylaxis. Continue telemetry? Yes
[2018-06-29 14:54] VITALS: BP 100/50
[2018-06-29 19:25] VITALS: BP 112/54
[2018-06-30 06:00] VITALS: BP 116/50
--- NOTE | 2018-06-30 09:07 | PN- Housestaff ---
See Addendum Subjective Follow-up For: CHF exacerbation A. fib Subjective: Patient seen and examined lying in bed. She has no new complaints. Telemetry showed she converted overnight between A. fib and a flutter. No events per nursing. Review of Systems Constitutional: Reports: see HPI. Objective Last 24 Hrs of Vital Signs/I&O Vital Signs Date Time Temp Pulse Resp B/P B/P Pulse O2 O2 Flow FiO2 Mean Ox Delivery Rate 06/30 1600 94 Nasal 2.0L Cannula 06/30 1400 97.3 60 20 132/60 95 06/30 1034 81 112/60 06/30 1034 81 112/60 06/30 1033 81 112/60 06/30 0800 95 Room Air 06/30 0600 97.7 75 18 116/50 94 06/29 2218 98.3 82 18 95 Room Air 06/29 2155 80 118/52 06/29 2154 80 118/52 06/29 1925 98.2 63 20 112/54 94 Room Air Intake & Output 06/30 1600 06/30 0800 06/30 0000 Intake Total 450 0 540 Output Total 1000 1300 Balance -550 0 -760 Intake, Oral 450 0 540 Output, Urine 1000 1300 Patient 113 lb Weight Weight Bed scale Measurement Method Physical Exam General Appearance: Alert, Cooperative, No Acute Distress Skin Temp/Moisture Exam: Warm/Dry HEENT: Atraumatic, EOMI Neck: Supple Cardiovascular: Normal S1, Normal S2, irregular Lungs: bibasalar crackles Abdomen: Normal Bowel Sounds, Soft, No Tenderness Current Medications: Current Medications Sig/Timi Start time Last Medication Dose Route Stop Time Status Admin Calcium Carbonate 0 .STK-MED ONE 06/29 1913 LA PO Calcium Carbonate 500 MG Q4-6 PRN PRN 06/28 1730 AC 06/29 PO 1913 Cholecalciferol 4,000 IU DAILY 06/28 1719 AC 06/30 PO 1034 Citalopram 5 MG DAILY 06/28 172 AC 06/30 Hydrobromide PO 1033 Cyclobenzaprine HCl 5 MG DAILY 06/28 1720 AC 06/30 PO 1033 Diltiazem HCl 30 MG BID 06/28 2100 AC 06/30 PO 1033 Docusate Sodium 100 MG BID PRN 06/28 1730 AC PO Furosemide 40 MG 7:30 AM, & 4:30 PM 06/28 1745 AC 06/30 IV 1552 Levothyroxine Sodium 0.125 MG DAILY AC 06/28 1726 AC 06/30 PO 0656 Lisinopril 5 MG DAILY 06/29 0900 AC 06/30 PO 1034 Metoprolol Tartrate 12.5 MG BID 06/28 2100 AC 06/30 PO 1034 Mirtazapine 7.5 MG QPM 06/28 2100 AC 06/29 PO 2155 Multivitamins 1 TAB DAILY 06/28 1727 AC 06/30 Therapeutic PO 1034 Omeprazole 40 MG DAILY AC 06/29 0700 AC 06/30 PO 0656 Potassium Chloride 40 MEQ DAILY 06/28 1728 AC 06/30 PO 1034 Rivaroxaban 15 MG 1700 06/28 1745 AC 06/30 PO 1552 Assessment/Plan Assessment: 87F PMH atrial fibrillation on Xarelto, CAD, HFpEF (EF 65%) with pulmonary HTN, 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 scapula/acetabulum) s/p chemotherapy, CKD stage 3A, right hip fracture s/p percutaneous pinning earlier this year, sent in from ECF for complaints of chest pain and SOB. # Acute on chronic diastolic CHF # CKD stage 3A # Paroxysmal atrial fibrillation Plan - Echo pending (can most likely DC depending on results) - Continue Lasix 40mg IV BID - Continue Linsiopril 5 mg - Hold off abx, no evidence of pneumonia on CT - TRC/nebs - I/O, daily weights - Continue home medications Heart healthy diet DVT PPx DNR/DNI Problem List: 1. Congestive heart failure Pain Ratin Pain Location: n/a Pain Goal: Remain pain free Pain Plan: pathway Tomorrow's Labs & Rationales: None
[2018-06-30 14:00] VITALS: BP 132/60
--- NOTE | 2018-06-30 16:51 | PN- Cardiology ---
Subjective Subjective: * Breathing is back to normal although the patient reports some lightheadedness upon arising. * atrial fibrillation with good rate control. Objective Vital Signs and I&Os Vital Signs Date Time Temp Pulse Resp B/P B/P Pulse O2 O2 Flow FiO2 Mean Ox Delivery Rate 06/30 1400 97.3 60 20 132/60 95 / 1034 81 112/60 06/30 1034 81 112/60 06/30 1033 81 112/60 06/30 0800 95 Room Air 06/30 0600 97.7 75 18 116/50 94 06/29 2218 98.3 82 18 95 Room Air 06/29 2155 80 118/52 06/29 2154 80 118/52 06/29 1925 98.2 63 20 112/54 94 Room Air Intake & Output 06/30 1600 06/30 0800 06/30 0000 06/29 1600 06/29 0800 06/29 0000 Intake Total 450 0 540 470 120 Output Total 1000 1300 400 200 400 Balance -550 0 -760 70 -80 -400 Intake, IV 20 Intake, Oral 450 0 540 450 120 Output, Urine 1000 1300 400 200 400 Patient 113 lb 118 lb Weight Weight Bed scale Bed scale Measurement Method Physical Exam: General: WD/WN female in NAD; alert and oriented x 3 HEENT: NC/AT, PERRL, EOMI Neck: positive JVD Heart: irregularly irregular Lungs: crackles at bases bilaterally Abdomen: soft, NT, +ve bowel sounds Extremities: no edema Assessment/Plan Assessment/Plan * This patient had evidence of decompensated congestive heart failure which has improved on her current dose of Lasix. We will now change to 40mg PO BID. and although improved continues to have some lung crackles. Continue diuresus with Lasix at 40mg IV BID. Continue Lisinopril 5mg daily for afterload reduction. * Continue Xarelto for stroke prophylaxis. Continue telemetry? Yes
[2018-06-30 22:24] VITALS: BP 124/64
[2018-07-01 07:30] VITALS: BP 102/40
--- NOTE | 2018-07-01 07:35 | PN- Housestaff ---
Colette MAYBERRY,[place] 07/01/18 0735: Subjective Follow-up For: chf exacerbation Tele-Events Since Last Visit: afib/flutter Subjective: Patient states that she feels good. Normal vitals. On PO lasix 40mg bid with good output. Denies chest pain/pressure currently, shortness of breath, palpitations. Review of Systems Constitutional: Reports: no symptoms. Cardiovascular: Reports: no symptoms. Respiratory: Reports: no symptoms. Gastrointestinal: Reports: no symptoms. Genitourinary: Reports: no symptoms. Musculoskeletal: Reports: no symptoms. Objective Last 24 Hrs of Vital Signs/I&O Vital Signs Date Time Temp Pulse Resp B/P B/P Pulse O2 O2 Flow FiO2 Mean Ox Delivery Rate 07/01 0954 62 102/40 07/01 0730 97.5 62 18 102/40 93 Room Air 07/01 0000 96 Room Air 06/30 2224 97.5 67 20 124/64 96 Nasal Cannula 06/30 2201 67 124/64 06/30 2201 67 124/64 06/30 1600 94 Nasal 2.0L Cannula Intake & Output 07/01 1600 07/01 0800 07/01 0000 Intake Total 240 Output Total 150 Balance 90 Intake, Oral 240 Output, Urine 150 Patient 116 lb Weight Weight Bed scale Measurement Method Physical Exam General Appearance: Alert, Oriented X3, Cooperative, No Acute Distress Skin: No Rashes Skin Temp/Moisture Exam: Warm/Dry Sepsis Skin Exam (color): Normal for Ethnicity HEENT: Atraumatic, EOMI, Mucous Membr. moist/pink Cardiovascular: Normal S1, Normal S2 Lungs: Clear to Auscultation, Normal Air Movement Abdomen: Normal Bowel Sounds, Soft, No Tenderness Neurological: Normal Speech Extremities: No Clubbing, No Cyanosis, No Edema, Normal Pulses, No Tenderness/ Swelling Vascular: Normal Pulses, Pulses Symmetrical Current Medications: Current Medications Sig/Timi Start time Last Medication Dose Route Stop Time Status Admin Calcium Carbonate 500 MG Q4-6 PRN PRN 06/28 173 AC 06/29 PO 191 Cholecalciferol 4,000 IU DAILY 06/28 1719 AC 07/01 PO 0954 Citalopram 5 MG DAILY 06/28 172 AC 07/01 Hydrobromide PO 09 Cyclobenzaprine HCl 5 MG DAILY 06/28 172 AC 07/01 PO 0954 Diltiazem HCl 30 MG BID 06/28 2100 AC 07/01 PO 0954 Docusate Sodium 100 MG BID PRN 06/28 1730 AC PO Furosemide 40 MG 7:30 AM, & 4:30 PM 07/01 1630 AC PO Furosemide 40 MG ONE ONE 07/01 0815 DC 07/01 PO 07/01 0816 0957 Furosemide 40 MG 7:30 AM, & 4:30 PM 06/28 1745 DC 06/30 IV 1552 Levothyroxine Sodium 0.125 MG DAILY AC 06/28 1726 AC 07/01 PO 0537 Lisinopril 5 MG DAILY 06/29 0900 AC 07/01 PO 0954 Metoprolol Tartrate 12.5 MG BID 06/28 2100 AC 07/01 PO 0954 Mirtazapine 7.5 MG QPM 06/28 2100 AC 06/30 PO 2201 Multivitamins 1 TAB DAILY 06/28 1727 AC 07/01 Therapeutic PO 0954 Omeprazole 40 MG DAILY AC 06/29 0700 AC 07/01 PO 0537 Potassium Chloride 40 MEQ DAILY 06/28 1728 AC 07/01 PO 0954 Rivaroxaban 15 MG 1700 06/28 1745 AC 06/30 PO 1552 Assessment/Plan Assessment: This is an 87-year-old female with a past medical history significant for diastolic CHF, COPD on 2 L of home oxygen as needed, coronary artery disease status post stenting, A. fib on diltiazem and Xarelto, GERD, KERLINE not on CPAP, anxiety, asthma, non-Hodgkin's lymphoma status post chemotherapy with Dr. Florentino , that is brought in by ambulance from her extended care facility, [facility] for complaints of shortness of breath, chest tightness, cough productive for yellow sputum since this morning. The patient had been at her baseline until this morning when, while breakfast is being prepared for her, she became increasingly short of breath. The patient is usually on 2 L nasal cannula baseline oxygen as needed. The patient was noted to have crackles but no wheezing. Her last echocardiogram was done in 2016 and was fairly normal except for moderate to severe pulmonary hypertension. In the ED, the patient's vitals were found to be at baseline and patient was on between 1 and 2 L of oxygen satting at 98%. Her labs showed a chronic anemia with hemoglobin of 10.6, negative troponin, negative d-dimer, a BNP which increased from 1000 a few days ago to 4500 here, INR of 1.83, creatinine 1.1 with GFR 47 which has been her baseline for about a year. Chest x-ray showed evidence of CHF with patchy opacity in the left lower base. CT of the chest showed evidence of CHF but no pneumonia. An EKG showed A. fib at a rate of 85 with a QTC of 457 and no evidence of ACS. In the ED, the patient got ceftriaxone, azithromycin, 1 dose of Lasix 40 mg IV. Assessment -CHF exacerbation with likely contribution of COPD -Pulmonary hypertension -A. fib -Chronic anemia -History of coronary artery disease -History of non-Hodgkin's lymphoma status post chemotherapy PLAN Admitted patient to telemetry for evaluation and cardiac monitoring. 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 Neal was placed. As per suggestions, lisinopril 5 mg was added for afterload reduction. Echocardiogram was ordered and was reviewed by Dr. Neal. Thyroid tests were done and TSH was found to be 7.37 with a normal free T4 level. Patient is on Synthroid and we continued her on that. We held off antibiotics as there was no evidence of pneumonia on the CT chest. We started her on Lasix 40 mg twice a day IV, continued potassium the patient takes outpatient, and strict I's and O's. Blood cultures taken in the ED were negative. Patient was put on [facility] nebs. Continued patient's home medications including Xarelto, diltiazem, metoprolol, Remeron, Protonix, Flexeril, Celexa. Patient will be discharged on lisinopril 5mg and lasix 40mg bid. Heart healthy diet. As per advanced directive, DNR/DNI, no G-tube, yes to IV hydration and hospitalization. DVT prophylaxis with Xarelto and Alps. Problem List: 1. 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 Patient is sleepy and providing minimal history. She reports being comfortable and not short of breath. Her chest pain is mid-sternal and 4/ 10, non-radiating, improved from earlier. Per W10 the patient had positional chest pain, worse when sitting up, and worsening dyspnea. She is volume overloaded by exam, with crackles and mild LE edema. EKG is atrial fibrillation and unchanged from prior. Patient is doing much better today. She is awake and alert and has no complaints. Her leg edema has resolved. Her breathing is at baseline. 1. Acute on chronic diastolic CHF 2. Chest pain at rest 3. CKD stage 3A 4. Paroxysmal atrial fibrillation Plan - Stable for discharge to ECF - Lasix 40mg PO BID - Cardiology consult - Continue home medications - Heart healthy diet
--- NOTE | 2018-07-01 11:37 | Discharge Summary ---
Visit Information Visit Dates Admission Date: 06/28/18 Discharge Date: 07/01/18 Hospital Course Course Attending Physician: Maximino Glynn MD Primary Care Physician: Nasir MAYBERRY,Gustabo Winslow Hospital Course: This is an 87-year-old female with a past medical history significant for diastolic CHF, COPD on 2 L of home oxygen as needed, coronary artery disease status post stenting, A. fib on diltiazem and Xarelto, GERD, KERLINE not on CPAP, anxiety, asthma, non-Hodgkin's lymphoma status post chemotherapy with Dr. Florentino , that is brought in by ambulance from her extended care facility, [facility] for complaints of shortness of breath, chest tightness, cough productive for yellow sputum since this morning. The patient had been at her baseline until this morning when, while breakfast is being prepared for her, she became increasingly short of breath. The patient is usually on 2 L nasal cannula baseline oxygen as needed. The patient was noted to have crackles but no wheezing. Her last echocardiogram was done in 2015 and was fairly normal except for moderate to severe pulmonary hypertension. In the ED, the patient's vitals were found to be at baseline and patient was on between 1 and 2 L of oxygen satting at 98%. Her labs showed a chronic anemia with hemoglobin of 10.6, negative troponin, negative d-dimer, a BNP which increased from 1000 a few days ago to 4500 here, INR of 1.83, creatinine 1.1 with GFR 47 which has been her baseline for about a year. Chest x-ray showed evidence of CHF with patchy opacity in the left lower base. CT of the chest showed evidence of CHF but no pneumonia. An EKG showed A. fib at a rate of 85 with a QTC of 457 and no evidence of ACS. In the ED, the patient got ceftriaxone, azithromycin, 1 dose of Lasix 40 mg IV. Assessment -CHF exacerbation with likely contribution of COPD -Pulmonary hypertension -A. fib -Chronic anemia -History of coronary artery disease -History of non-Hodgkin's lymphoma status post chemotherapy HOSPITAL COURSE -Admitted patient to telemetry for evaluation and cardiac monitorinG. Troponins and EKGs were negative for ACS, all show continued A. 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 Neal was placed. As per suggestions, lisinopril 5 mg was added for afterload reduction. Echocardiogram was ordered and was reviewed by Dr. Neal. Thyroid tests were done and TSH was found to be 7.37 with a normal free T4 level. Patient is on Synthroid and we continued her on that. We held off antibiotics as there was no evidence of pneumonia on the CT chest. We started her on Lasix 40 mg twice a day IV, continued potassium the patient takes outpatient, and strict I's and O's. Blood cultures taken in the ED were negative. Patient was put on TRC nebs. Continued patient's home medications including Xarelto, diltiazem, metoprolol, Remeron, Protonix, Flexeril, Celexa. Patient will be discharged on lisinopril 5mg and lasix 40mg bid. Heart healthy diet. As per advanced directive, DNR/DNI, no G- tube, yes to IV hydration and hospitalization. DVT prophylaxis with Xarelto and Alps. Allergies: Coded Allergies: Penicillins (RASH 12/16/16) acetaminophen (BURNING FEELING IN STOMACH 12/16/16) adhesive tape (UNKNOWN 12/26/17) ADHESIVE TAPE PER ANTIBIOTIC ORDER SHEET OF 12/26/17 (SJS) animal dander (PER 01/14/17) latex (SORES 12/16/16) mold (UNKNOWN 12/16/16) Sulfa (Sulfonamide Antibiotics) (GI 12/16/16) aspirin (MILD GI 12/16/16) diazepam (GI 12/16/16) oxycodone (GI, MIGRAINE 12/16/16) propoxyphene (GI 12/16/16) Uncoded Allergies: COLOGNE (PER PT UPSETS HER WITH THE SMELL 10/17/16) HAIR SPRAY (PER PT UPSETS HER WITH THE SMELL 10/17/16) SMOKE (PER PT CANT STAND SMELLS IT UPSETS HER 10/17/16) TOBACCO (PER 01/14/17) Disposition Summary Disposition Principal Diagnosis: chf exacerbation Additional Diagnosis: na Discharge Disposition: SNF Discharge Instructions General Discharge Information Code Status: Do Not Resucitate/Intubat Patient's Diet: low salt Patient's Activity: as tolerated Follow-Up Instructions/Appts: PLEASE FOLLOW UP WITH PCP IN ONE WEEK PLEASE FOLLOW UP WITH CARDIOLOGY IN ONE WEEK Medications at Discharge Discharge Medications: Continue taking these medications: Pantoprazole Sodium (Protonix) 40 MG TABLET. 1 Tablet ORAL TWICE DAILY Comments: Last Taken: 12/28/17 Time: 0630 AM PRILOSEC GIVEN Multivitamin (Multiple Vitamins) 1 EACH TABLET 1 Tablet ORAL DAILY Comments: NOT GIVEN IN HOSPITAL Cyanocobalamin (Vitamin B-12) (Cyanocobalamin Injection) 1,000 MCG/1 ML VIAL 1 Milliliters INTRAMUSC ONCE A MONTH Qty = 1 Instructions: Reason to Stop at ADM: monthly Comments: Last Taken: NOT GIVEN IN HOSPITAL Time: Mirabegron (Myrbetriq) 25 MG TAB.ER.24H 1 Tablet ORAL DAILY Qty = 30 Comments: NOT GIVEN IN HOSPITAL Cholecalciferol (Vitamin D3) (Vitamin D3) 5,000 UNIT TABLET 1 Tablet ORAL DAILY Comments: Last Taken: 12/28/17 Time: 1030 AM Rivaroxaban (Xarelto) 15 MG TABLET 1 Tablet ORAL 5 PM Qty = 90 Comments: Last Taken: 12/27/17 Time: 1100 PM Tiotropium Ridge (Spiriva) 18 MCG CAP.W.DEV 1 Capsule Inhale through mouth DAILY Comments: Last Taken: 12/28/17 Time: 1030 AM Estradiol (Climara) 0.0375 MG/24 HOUR PATCH.TDWK 1 PATCH On the skin Mo Instructions: Reason to Stop at ADM: not needed in hospital Comments: Last Taken: NOT GIVEN IN HOSPITAL Time: Levothyroxine Sodium (Synthroid) 125 MCG TABLET 1 Tablet ORAL DAILY BEFORE BREAKFAST Comments: Last Taken: 12/28/17 Time: 0630 AM Diltiazem HCl (Cardizem) 30 MG TABLET 30 Milligram ORAL TWICE DAILY Days = 30 Comments: Last Taken: 12/28/17 Time: 1032 AM Potassium Chloride (Klor-Con M20) 20 MEQ TAB.ER.PRT 40 Millequivalent ORAL DAILY Qty = 30 Comments: Last Taken: 12/28/17 Time: 1030 AM Mirtazapine (Mirtazapine) 7.5 MG TABLET 1 Tablet ORAL Every night Comments: Last Taken:12/27/17 Time:10:00 PM Cyclobenzaprine HCl (Cyclobenzaprine HCl) 5 MG TABLET 1 Tablet ORAL DAILY Comments: NOT GIVEN IN HOSPITAL Acetaminophen (Tylenol) 325 MG TABLET 650 Milligram ORAL EVERY SIX HOURS NEEDED as needed for PAIN 1-3 TEMP GREATER THAN 101 Days = 7 Comments: NOT GIVEN IN HOSPITAL Calcium Carbonate (Calcium Carbonate) 200 MG CALCIUM (500 MG) TAB.CHEW 500 Milligram ORAL EVERY 4-6 HOURS NEEDED as needed for HEARTBURN Days = 7 Comments: Last Taken:12/28/17 Time:1:30 PM Docusate Sodium (Docusate Sodium) 100 MG CAPSULE 100 Milligram ORAL TWICE DAILY as needed for CONSTIPATION Days = 10 Comments: NOT GIVEN IN HOSPITAL Citalopram Hydrobromide (Celexa) 10 MG TABLET 0.5 Tablet ORAL DAILY Metoprolol Tartrate (Metoprolol Tartrate) 25 MG TABLET 0.5 Tablet ORAL TWICE DAILY Qty = 30 Start taking the following new medications: Lisinopril (Lisinopril) 5 MG TABLET 5 Milligram ORAL DAILY Qty = 30 No Refills The following medications have been changed: Old: Furosemide (Furosemide) 40 MG TABLET 1 Tablet ORAL DAILY New: Furosemide (Furosemide) 40 MG TABLET 1 Tablet ORAL TWICE DAILY Qty = 60 Copies To: Nasir MAYBERRY,Gustabo Winslow; Deon MAYBERRY,[facility] Nimesh; Elva MAYBERRY,Kelvin Winslow; Ángel MAYBERRY PHD, [place] Nimesh
--- NOTE | 2018-07-01 13:06 | PN- Cardiology ---
Subjective Subjective: * Breathing is back to baseline. No lightheadedness. * atrial fibrillation with good rate control. Objective Vital Signs and I&Os Vital Signs Date Time Temp Pulse Resp B/P B/P Pulse O2 O2 Flow FiO2 Mean Ox Delivery Rate 07/01 0954 62 102/40 07/01 0730 97.5 62 18 102/40 93 Room Air 07/01 0000 96 Room Air 06/30 2224 97.5 67 20 124/64 96 Nasal Cannula 06/30 2201 67 124/64 06/30 2201 67 124/64 06/30 1600 94 Nasal 2.0L Cannula 06/30 1400 97.3 60 20 132/60 95 Intake & Output 07/01 1600 07/01 0800 07/01 0000 06/30 1600 06/30 0800 06/30 0000 Intake Total 240 450 0 540 Output Total 150 1000 1300 Balance 90 -550 0 -760 Intake, Oral 240 450 0 540 Output, Urine 150 1000 1300 Patient 116 lb 113 lb Weight Weight Bed scale Bed scale Measurement Method Physical Exam: General: WD/WN female in NAD; alert and oriented x 3 HEENT: NC/AT, PERRL, EOMI Neck: positive JVD Heart: irregularly irregular with 2/6 systolic murmur Lungs: clear bilaterally Abdomen: soft, NT, +ve bowel sounds Extremities: no edema Assessment/Plan Assessment/Plan * This patient had evidence of decompensated congestive heart failure which has improved on her current dose of Lasix. Continue Lasix at 40mg PO BID. Continue Lisinopril 5mg daily for afterload reduction. * Okay for discharge with follow up in the office in one week. * Continue Xarelto for stroke prophylaxis. Continue telemetry? No
[2018-07-01] MEDS ORDERED: FUROSEMIDE40 M1 PO (13:07)
[2018-07-01 14:48] VITALS: BP 102/40
[2018-07-01 15:05] VITALS: BP 122/60
== END 2018-07-01 16:05 | DRG 291 ==
LOC: ERH 09:34 → 1NO 12:14 → ERHI 12:14 → ENRESERV 12:57 → ENTRNSPT 14:40 → EDTRNSPT 15:06 → EDTRNSPTSTS 15:33 → 1NO 15:37 → CMPTRNSPT 15:50 → 1NO 07-01 16:05
PROVIDERS: Physician Assistant Medical
DX: I13.0 Hypertensive heart and chronic kidney disease with heart failure and stage 1 through stage 4 chronic kidney disease, or unspecified chronic kidney disease (principal); I50.33 Acute on chronic diastolic (congestive) heart failure; C79.51 Secondary malignant neoplasm of bone; I27.20 Pulmonary hypertension, unspecified; J44.9 Chronic obstructive pulmonary disease, unspecified; Z99.81 Dependence on supplemental oxygen; D64.9 Anemia, unspecified; I48.0 Paroxysmal atrial fibrillation; N18.3 Chronic kidney disease, stage 3 (moderate); I25.10 Atherosclerotic heart disease of native coronary artery without angina pectoris; I48.2 Chronic atrial fibrillation; Z79.01 Long term (current) use of anticoagulants; E03.9 Hypothyroidism, unspecified; Z85.72 Personal history of non-Hodgkin lymphomas; K21.9 Gastro-esophageal reflux disease without esophagitis; G47.33 Obstructive sleep apnea (adult) (pediatric); Z66 Do not resuscitate; Z95.5 Presence of coronary angioplasty implant and graft; Z92.21 Personal history of antineoplastic chemotherapy; Z90.49 Acquired absence of other specified parts of digestive tract; Z90.710 Acquired absence of both cervix and uterus; Z87.81 Personal history of (healed) traumatic fracture; Z88.0 Allergy status to penicillin; Z88.6 Allergy status to analgesic agent; Z91.040 Latex allergy status; Z88.5 Allergy status to narcotic agent; Z88.2 Allergy status to sulfonamides; Z88.8 Allergy status to other drugs, medicaments and biological substances; Z91.048 Other nonmedicinal substance allergy status; Z91.09 Other allergy status, other than to drugs and biological substances
CPT/HCPCS: 1NP; 36592; 71045; 81003; 82436; 87040; 93005; 93010; J0696; J1650; J1940